=== PATIENT | male | born 1950 | race Caucasian/White ===

== ENCOUNTER → 2016-07-11 | Outpatient (CLI) | payer MEDICARE ==
--- NOTE | 2016-07-11 17:40 | XR ---
EXAMINATION TYPE: XR foot limited RT DATE OF EXAM: 07/11/2016 4:55 PM COMPARISON: None HISTORY: Pain and redness TECHNIQUE: 2 views FINDINGS: There is a large plantar calcaneal spur. Metatarsals are intact. I see no fracture nor disl ocation. IMPRESSION: Calcaneal spurring. No fracture seen. No evidence of osteomyelitis.
== END | disposition home or self-care (01) ==
LOC: RADXRMAIN 16:38
PROVIDERS: ATTEND Family Medicine
DX: M77.31 Calcaneal spur, right foot (principal)

== ENCOUNTER → 2017-08-11 | Outpatient (CLI) | payer MEDICARE ==
[2017-08-11 11:40] LABS: Basophils % (A) 0 %; Eosinophils # (A) 0.2 k/uL (0-0.7); Eosinophils % (A) 3 %; HCT 51.3 % (39.0-53.0); HGB 16.6 gm/dL (13.0-17.5); Lymphocytes # (A) 1.8 k/uL (1.0-4.8); Lymphocytes % (A) 20 %; MCH 30.8 pg (25.0-35.0); MCHC 32.2 g/dL (31.0-37.0); MCV 95.5 fL (80.0-100.0); Mean Platelet Volume 6.9; Monocytes # (A) 0.5 k/uL (0-1.0); Monocytes % (A) 6 %; Neutrophils # (A) 6.2 k/uL (1.3-7.7); Neutrophils % (A) 69 %; Platelet Count 234 k/uL (150-450); RBC 5.38 m/uL (4.30-5.90); RDW 13.3 % (11.5-15.5); WBC 8.9 k/uL (3.8-10.6)
== END | disposition home or self-care (01) ==
LOC: LABPAT 10:51
PROVIDERS: ATTEND Surgery
DX: Z01.812 Encounter for preprocedural laboratory examination (principal); D64.9 Anemia, unspecified; F17.200 Nicotine dependence, unspecified, uncomplicated; K43.0 Incisional hernia with obstruction, without gangrene
CPT/HCPCS: 36415; 85025; 86850; 86900; 86901; 93005

== ENCOUNTER 2017-08-19 06:39 | Day surgery (SDC) | payer MEDICARE ==
[2017-08-11 14:55] VITALS: BMI 39.7
[~2017-08-19 06:39] MED LIST: HEPARIN SODIUM,PORCINE 5,000 UNIT/ML 1 ML VIAL SQ ONE
[2017-08-19] MEDS ORDERED: LIDOCAINE 1% 20 ML VIAL (10MG/ML) FOR IV START INTRADERMA PRN (06:52)
[2017-08-19] MEDS ORDERED: ONDANSETRON 4 MG/2 ML VIAL IVP ONE (06:52)
[2017-08-19] MEDS ORDERED: MORPHINE SULFATE 4MG/4ML SYRG IV PRN (06:52)
[2017-08-19] MEDS ORDERED: SCOPOLAMINE 1.5MG/72HR PATCH TRANSDERM ONE (06:52)
[2017-08-19] MEDS ORDERED: DEXAMETHASONE SOD PHOSPHATE 10 MG/ML 1 ML VIAL IV ONE (06:52)
[2017-08-19] MEDS ORDERED: LACTATED RINGERS 1,000 ML IV SCH (06:52)
[2017-08-19] MEDS ORDERED: LIDOCAINE 1% 20 ML VIAL (10MG/ML) FOR IV START INTRADERMA ONE (07:44)
[2017-08-19 08:01] LABS: Glucose,Whole Blood 140 mg/dL (75-99)
[2017-08-19 08:22] LABS: Anion Gap 12 mmol/L; Blood Urea Nitrogen 27 mg/dL (9-20); Carbon Dioxide 35 mmol/L (22-30); Chloride 99 mmol/L (98-107); Potassium 4.3 mmol/L (3.5-5.1); Sodium 146 mmol/L (137-145)
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
[2017-08-19] MEDS ORDERED: NEOSTIGMINE 1 MG/ML 10 ML VIAL ONE (08:45)
[2017-08-19] MEDS ORDERED: PHENYLEPHRINE-0.9% NACL SYG 1 MG/10 ML SYRINGE ONE (08:45)
[2017-08-19] MEDS ORDERED: ROPIVACAINE 5 MG/ML 30 ML VIAL ONE (08:45)
[2017-08-19] MEDS ORDERED: MIDAZOLAM 2 MG/2 ML VIAL ONE (08:45)
[2017-08-19] MEDS ORDERED: GLYCOPYRROLATE 0.2 MG/ML 2 ML VIAL ONE (08:45)
[2017-08-19] MEDS ORDERED: PROPOFOL 10 MG/ML 20 ML VIAL IV ONE (08:45)
[2017-08-19] MEDS ORDERED: LIDOCAINE 1% INJ 10MG/ML (20 ML MDV) ONE (08:45)
[2017-08-19] MEDS ORDERED: ePHEDrine 50 MG/ML 1 ML AMP ONE (08:45)
[2017-08-19] MEDS ORDERED: SUCCINYLCHOLINE CHLORIDE 100 MG/5 ML SYR IV ONE (08:45)
[2017-08-19] MEDS ORDERED: ROCURONIUM BROMIDE 10 MG/ML 10 ML VIAL IV ONE (08:45)
[2017-08-19] MEDS ORDERED: fentaNYL (PF) 50 MCG/ML 2 ML AMP ONE (08:45)
[2017-08-19] MEDS ORDERED: BUPIVACAINE (PF) 0.25% 30 ML VIAL SQ ONE ×2 (09:12)
[2017-08-19] MEDS ORDERED: LACTATED RINGERS 1,000 ML IV ONE (09:40)
[2017-08-19 10:29] VITALS: TEMP 97.2
[2017-08-19 10:47] LABS: Glucose,Whole Blood 180 mg/dL (75-99)
--- NOTE | 2017-08-19 11:26 | P.ONQ ---
Anesthesiology Proc Note - PNB - Peripheral Nerve Block Performed Rectus Abdominis Single Time Out Performed: Yes (2904) Procedure Start Time: :08 Procedure Stop Time: :20 Indication: Acute Post-Operative Pain, Requested by physician Sedation Type: Sedate with meaningful contact maintained Preparation: Sterile Prep Position: Supine Catheter: None Needle Types: Facet Needle Size: 150mm (6") Needle Gauge: 20 Technique: Ultrasound Injectate: 0.5% Ropivacaine (see comment for volume) (Bilateral block total of 30 mls) Blood Aspirated: No Pain Paresthesia on Injection Noted: No Resistance on Injection: Normal Events: Uneventful and Well Tolerated
[2017-08-19] MEDS ORDERED: ALBUTEROL NEBULIZED 2.5 MG/3 ML INHALATION STA (11:45)
[2017-08-19] MEDS ORDERED: ALBUTEROL NEBULIZED 2.5 MG/3 ML INHALATION ONE (11:47)
[2017-08-19] MEDS ORDERED: fentaNYL (PF) 50 MCG/ML 2 ML AMP IV ONE (12:45)
[2017-08-19 12:55] VITALS: RESP 18
[2017-08-19 13:43] VITALS: BP 125/57; PULSE 93
--- NOTE | 2017-08-20 12:22 | P.OP ---
Date of Procedure: 08/19/17 Preoperative Diagnosis: Incarcerated incisional hernia Postoperative Diagnosis: Incarcerated incisional hernia Incarcerated umbilical hernia Procedure(s) Performed: Laparoscopic robotic-assisted repair of incarcerated umbilical hernia Laparoscopic robotic spare of incarcerated ventral hernia Partial omentectomy Anesthesia: JACKY Surgeon: Rony Dangelo Estimated Blood Loss (ml): 5 Pathology: other (Incarcerated omentum) Condition: stable Disposition: PACU Description of Procedure: MThe patient was placed on the operating table in the supine position. He received general anesthesia. His abdomen was prepped and draped usual fashion. Using a 5 mm optical trocar under direct visualization the peritoneal cavity was entered in the left upper quadrant. The abdomen was then insufflated. The laparoscope was placed back into the perineal cavity. Next a 8 mm robotic trocar was placed in the left lower quadrant and a 12 mm robotic trocar was placed in the left lateral position. The original 5 mm trocar was exchanged for a 8 mm robotic trocar. The patient's placed in the left side up position. And the patient was docked to the robot. The incisional hernia was visualized. Using hook cautery the peritoneum over the incisional hernia was excised. The incarcerated omentum was withdrawn from the incisional hernia. The non-viable omentum was transected. Patient was noted to have a second umbilical hernia containing incarcerated omentum. This was dissected using the hook cautery. The fascial opening was repaired using 0V LOC suture. Next a piece of 11 cm round ventral light ST mesh was placed into the. Cavity and secured with 2 OV lock suture. The patient was undocked the robot. The needles were retrieved. The omentum was retrieved. The fascia of the 12 mm trocar site was closed with 0 Ethibond suture. Skin was closed interrupted 3-0 Monocryl suture. Dermabond dressings was applied. Patient tolerated procedure well and was sent to recovery room stable condition.
== END 2017-08-19 14:49 | disposition home or self-care (01) ==
LOC: OR 06:39
PROVIDERS: ATTEND Surgery
DX: K43.0 Incisional hernia with obstruction, without gangrene (principal); K42.0 Umbilical hernia with obstruction, without gangrene; I11.0 Hypertensive heart disease with heart failure; I50.9 Heart failure, unspecified; J44.9 Chronic obstructive pulmonary disease, unspecified; E11.9 Type 2 diabetes mellitus without complications; E78.5 Hyperlipidemia, unspecified; M10.9 Gout, unspecified; M81.0 Age-related osteoporosis without current pathological fracture; Z79.84 Long term (current) use of oral hypoglycemic drugs; Z79.82 Long term (current) use of aspirin; Z79.4 Long term (current) use of insulin; Z79.51 Long term (current) use of inhaled steroids; Z79.899 Other long term (current) drug therapy; Z91.040 Latex allergy status; Z88.8 Allergy status to other drugs, medicaments and biological substances; Z91.09 Other allergy status, other than to drugs and biological substances; Z87.891 Personal history of nicotine dependence
CPT/HCPCS: 88305; 80051; 82565; 84520; 49655; 49653; 64488; C1781; J2250; J1644; J2710; J0690; J2405; J2001; J3010; J2795; J2370; J0330; J2704; 86850; 86900; 86901

== ENCOUNTER 2017-08-22 10:31 | Inpatient (IN) | payer MEDICARE ==
[2017-08-22] MEDS ORDERED: IPRATROPIUM-ALBUTEROL 3 ML NEB INHALATION STA (11:12)
--- NOTE | 2017-08-22 11:12 | ED ---
General Adult HPI - General Chief complaint: Altered Mental Status Stated complaint: hallucinations Time Seen by Provider: 08/22/17 10:50 Source: patient, RN notes reviewed Mode of arrival: wheelchair Limitations: no limitations - History of Present Illness Initial comments: Patient is a pleasant 66-year-old male presenting to the emergency Department with some concerns for change in mental status. Patient did have hernia surgery done 3 days ago. Patient has been having hallucinations and conversations with people who are not present. No history of similar symptoms previously. Patient does admit to feeling somewhat short of breath. Son also states that patient has been easily falling asleep recently. This is somewhat a chronic problem however worse the past day or 2. Onset of symptoms was yesterday. - Related Data Home Medications Medication Instructions Recorded Confirmed Albuterol Inhaler [Ventolin Hfa 3 puff INHALATION RT-BID PRN 08/11/17 08/22/17 Inhaler] Allopurinol [Zyloprim] 300 mg PO DAILY 08/11/17 08/22/17 Aspirin [Adult Low Dose Aspirin EC] 81 mg PO DAILY 08/11/17 08/22/17 Carvedilol 25 mg PO BID 08/11/17 08/22/17 Fluticasone/Vilanterol [Breo 1 puff INHALATION RT-DAILY 08/11/17 08/22/17 Ellipta 200-25 Mcg INH] Furosemide [Lasix] 40 mg PO DAILY 08/11/17 08/22/17 Insulin Detemir [Levemir] 30 unit SQ DAILY 08/11/17 08/22/17 Lisinopril 30 mg PO DAILY 08/11/17 08/22/17 [place]-3 Fatty Acids/Fish Oil [Fish 1 cap PO DAILY 08/11/17 08/22/17 Oil 1,000 mg Softgel] Tamsulosin [Flomax] 0.4 mg PO DAILY 08/11/17 08/22/17 glipiZIDE [Glucotrol] 10 mg PO AC-BID 08/11/17 08/22/17 metFORMIN HCL 1,000 mg PO BID PRN 08/11/17 08/22/17 Albuterol Nebulized [Ventolin 2.5 mg INHALATION RT-QID PRN 08/22/17 08/22/17 Nebulized] HYDROcodone/APAP 7.5-325MG [[place] 1 tab PO Q4H PRN 08/22/17 08/22/17 7.5] Multivitamins, Thera [Multivitamin 1 tab PO DAILY 08/22/17 08/22/17 (formulary)] Oxymetazoline 0.05% Nasl [place] 3 spray EA NOSTRIL TID PRN 08/22/17 08/22/17 [Afrin 0.05% Nasal [place]] Previous Rx's Medication Instructions Recorded Docusate [Colace] 100 mg PO BID #20 capsule 08/19/17 Allergies Allergy/AdvReac Type Severity Reaction Status Date / Time codeine Allergy Unknown Verified 08/22/17 11:39 iodine Allergy "i could Verified 08/22/17 11:39 not move for 3 weeks" latex Allergy Rash/Hives/ Verified 08/22/17 11:39 blisters nitrous oxide Allergy Vomiting Verified 08/22/17 11:39 Review of Systems ROS Statement: Those systems with pertinent positive or pertinent negative responses have been documented in the HPI. ROS Other: All systems not noted in ROS Statement are negative. Constitutional: Denies: fever Eyes: Denies: eye pain ENT: Denies: ear pain Respiratory: Reports: dyspnea Cardiovascular: Denies: chest pain Endocrine: Reports: fatigue Gastrointestinal: Reports: abdominal pain (Mild discomfort is attributed to recent hernia surgery, patient states it is improving as expected.). Denies: vomiting Genitourinary: Denies: dysuria Musculoskeletal: Denies: back pain Skin: Denies: rash Neurological: Denies: weakness Psychiatric: Reports: as per HPI Past Medical History Past Medical History: COPD, Diabetes Mellitus, Hypertension History of Any Multi-Drug Resistant Organisms: None Reported Past Surgical History: Back Surgery, Hernia Repair, Joint Replacement, Orthopedic Surgery Past Psychological History: No Psychological Hx Reported Smoking Status: Current every day smoker Past Alcohol Use History: None Reported Past Drug Use History: None Reported General Exam Limitations: no limitations General appearance: alert, in no apparent distress Head exam: Present: atraumatic Eye exam: Present: normal appearance, PERRL, EOMI ENT exam: Present: normal oropharynx Neck exam: Present: normal inspection Respiratory exam: Present: wheezes, decreased breath sounds Cardiovascular Exam: Present: tachycardia GI/Abdominal exam: Present: soft. Absent: tenderness Extremities exam: Present: pedal edema. Absent: calf tenderness Back exam: Present: normal inspection Neurological exam: Present: alert, oriented X3, CN II-XII intact. Absent: motor sensory deficit Expanded Neurological exam: Present: protecting the airway Patient oriented to: Present: person, place, time Speech: Present: fluid speech Cranial nerves: EOM's Intact: Normal Motor strength exam: RUE: 5, LUE: 5, RLE: 5, LLE: 5 Eye Response: (4) open spontaneously Motor Response: (6) obeys commands Verbal Response: (5) oriented Psychiatric exam: Present: normal affect, normal mood Skin exam: Present: normal color Course Vital Signs 08/22/17 08/22/17 08/22/17 10:38 11:27 11:28 Temperature 98.1 F Pulse Rate 123 H 125 H Respiratory 22 22 Rate Blood Pressure 149/63 O2 Sat by Pulse 83 L Oximetry 08/22/17 08/22/17 08/22/17 11:38 11:41 13:00 Temperature 97.7 F Pulse Rate 121 H 115 H 112 H Respiratory 26 H 24 Rate Blood Pressure 156/80 O2 Sat by Pulse 91 L 98 Oximetry EKG Findings - EKG Comments: EKG Findings:: Sinus tachycardia 125. SC 152. QRS 92. QT 284. QTC 409. Normal axis. Normal QRS. Nonspecific T-wave. Medical Decision Making - Medical Decision Making Patient reevaluated and resting comfortably in bed. Patient and son updated on results and plan. Case was also discussed with Dr. Kraus who will consult. He will decide on BiPAP when he sees the patient. - Lab Data Result diagrams: 08/22/17 11:00 08/22/17 11:00 Lab Results 08/22/17 08/22/17 08/22/17 Range/Units 11:00 11:00 11:00 WBC 11.4 H (3.8-10.6) k/uL RBC 5.18 (4.30-5.90) m/uL Hgb 16.2 (13.0-17.5) gm/dL Hct 49.6 (39.0-53.0) % MCV 95.8 (80.0-100.0) fL MCH 31.3 (25.0-35.0) pg MCHC 32.7 (31.0-37.0) g/dL RDW 13.2 (11.5-15.5) % Plt Count 203 (150-450) k/uL Neutrophils % 82 % Lymphocytes % 10 % Monocytes % 6 % Eosinophils % 2 % Basophils % 0 % Neutrophils # 9.2 H (1.3-7.7) k/uL Lymphocytes # 1.1 (1.0-4.8) k/uL Monocytes # 0.7 (0-1.0) k/uL Eosinophils # 0.2 (0-0.7) k/uL Basophils # 0.0 (0-0.2) k/uL PT (9.0-12.0) sec INR (<1.2) APTT (22.0-30.0) sec Sample Site ABG pH (7.35-7.45) ABG pCO2 (35-45) mmHg ABG pO2 (83-108) mmHg ABG HCO3 (21-25) mmol/L ABG Total CO2 (19-24) mmol/L ABG O2 Saturation (94-97) % ABG Base Excess mmol/L King Test FiO2 % Sodium 144 (137-145) mmol/L Potassium 4.7 (3.5-5.1) mmol/L Chloride 98 (98-107) mmol/L Carbon Dioxide 34 H (22-30) mmol/L Anion Gap 12 mmol/L BUN 38 H (9-20) mg/dL Creatinine 0.87 (0.66-1.25) mg/dL Est GFR (CKD-EPI)AfAm >90 (>60 ml/min/1.73 sqM) Est GFR (CKD-EPI)NonAf >90 (>60 ml/min/1.73 sqM) Glucose 260 H (74-99) mg/dL Calcium 9.9 (8.4-10.2) mg/dL Total Bilirubin 0.8 (0.2-1.3) mg/dL AST 82 H (17-59) U/L ALT 47 (21-72) U/L Alkaline Phosphatase 172 H (38-126) U/L Total Creatine Kinase 1310 H (55-170) U/L CK-MB (CK-2) 9.9 H* (0.0-2.4) ng/mL CK-MB (CK-2) Rel Index 0.8 Troponin I 0.027 (0.000-0.034) ng/mL NT-Pro-B Natriuret Pep pg/mL Total Protein 6.4 (6.3-8.2) g/dL Albumin 3.6 (3.5-5.0) g/dL Urine Color Urine Appearance (Clear) Urine pH (5.0-8.0) Ur Specific [place] (1.001-1.035) Urine Protein (Negative) Urine Glucose (UA) (Negative) Urine Ketones (Negative) Urine Blood (Negative) Urine Nitrite (Negative) Urine Bilirubin (Negative) Urine Urobilinogen (<2.0) mg/dL Ur Leukocyte Esterase (Negative) Urine Opiates Screen (NotDetected) Ur Oxycodone Screen (NotDetected) Urine Methadone Screen (NotDetected) Ur Propoxyphene Screen (NotDetected) Ur Barbiturates Screen (NotDetected) U Tricyclic Antidepress (NotDetected) Ur Phencyclidine Scrn (NotDetected) Ur Amphetamines Screen (NotDetected) U Methamphetamines Scrn (NotDetected) U Benzodiazepines Scrn (NotDetected) Urine Cocaine Screen (NotDetected) U Marijuana (THC) Screen (NotDetected) 08/22/17 08/22/17 08/22/17 Range/Units 11:00 11:00 12:34 WBC (3.8-10.6) k/uL RBC (4.30-5.90) m/uL Hgb (13.0-17.5) gm/dL Hct (39.0-53.0) % MCV (80.0-100.0) fL MCH (25.0-35.0) pg MCHC (31.0-37.0) g/dL RDW (11.5-15.5) % Plt Count (150-450) k/uL Neutrophils % % Lymphocytes % % Monocytes % % Eosinophils % % Basophils % % Neutrophils # (1.3-7.7) k/uL Lymphocytes # (1.0-4.8) k/uL Monocytes # (0-1.0) k/uL Eosinophils # (0-0.7) k/uL Basophils # (0-0.2) k/uL PT 9.8 (9.0-12.0) sec INR 1.0 (<1.2) APTT 24.4 (22.0-30.0) sec Sample Site rrad ABG pH 7.37 (7.35-7.45) ABG pCO2 63 H (35-45) mmHg ABG pO2 63 L (83-108) mmHg ABG HCO3 36 H (21-25) mmol/L ABG Total CO2 38 H (19-24) mmol/L ABG O2 Saturation 92.0 L (94-97) % ABG Base Excess 10.8 mmol/L King Test Yes FiO2 28 % Sodium (137-145) mmol/L Potassium (3.5-5.1) mmol/L Chloride (98-107) mmol/L Carbon Dioxide (22-30) mmol/L Anion Gap mmol/L BUN (9-20) mg/dL Creatinine (0.66-1.25) mg/dL Est GFR (CKD-EPI)AfAm (>60 ml/min/1.73 sqM) Est GFR (CKD-EPI)NonAf (>60 ml/min/1.73 sqM) Glucose (74-99) mg/dL Calcium (8.4-10.2) mg/dL Total Bilirubin (0.2-1.3) mg/dL AST (17-59) U/L ALT (21-72) U/L Alkaline Phosphatase (38-126) U/L Total Creatine Kinase (55-170) U/L CK-MB (CK-2) (0.0-2.4) ng/mL CK-MB (CK-2) Rel Index Troponin I (0.000-0.034) ng/mL NT-Pro-B Natriuret Pep 318 pg/mL Total Protein (6.3-8.2) g/dL Albumin (3.5-5.0) g/dL Urine Color Urine Appearance (Clear) Urine pH (5.0-8.0) Ur Specific [place] (1.001-1.035) Urine Protein (Negative) Urine Glucose (UA) (Negative) Urine Ketones (Negative) Urine Blood (Negative) Urine Nitrite (Negative) Urine Bilirubin (Negative) Urine Urobilinogen (<2.0) mg/dL Ur Leukocyte Esterase (Negative) Urine Opiates Screen (NotDetected) Ur Oxycodone Screen (NotDetected) Urine Methadone Screen (NotDetected) Ur Propoxyphene Screen (NotDetected) Ur Barbiturates Screen (NotDetected) U Tricyclic Antidepress (NotDetected) Ur Phencyclidine Scrn (NotDetected) Ur Amphetamines Screen (NotDetected) U Methamphetamines Scrn (NotDetected) U Benzodiazepines Scrn (NotDetected) Urine Cocaine Screen (NotDetected) U Marijuana (THC) Screen (NotDetected) 08/22/17 Range/Units 13:41 WBC (3.8-10.6) k/uL RBC (4.30-5.90) m/uL Hgb (13.0-17.5) gm/dL Hct (39.0-53.0) % MCV (80.0-100.0) fL MCH (25.0-35.0) pg MCHC (31.0-37.0) g/dL RDW (11.5-15.5) % Plt Count (150-450) k/uL Neutrophils % % Lymphocytes % % Monocytes % % Eosinophils % % Basophils % % Neutrophils # (1.3-7.7) k/uL Lymphocytes # (1.0-4.8) k/uL Monocytes # (0-1.0) k/uL Eosinophils # (0-0.7) k/uL Basophils # (0-0.2) k/uL PT (9.0-12.0) sec INR (<1.2) APTT (22.0-30.0) sec Sample Site ABG pH (7.35-7.45) ABG pCO2 (35-45) mmHg ABG pO2 (83-108) mmHg ABG HCO3 (21-25) mmol/L ABG Total CO2 (19-24) mmol/L ABG O2 Saturation (94-97) % ABG Base Excess mmol/L King Test FiO2 % Sodium (137-145) mmol/L Potassium (3.5-5.1) mmol/L Chloride (98-107) mmol/L Carbon Dioxide (22-30) mmol/L Anion Gap mmol/L BUN (9-20) mg/dL Creatinine (0.66-1.25) mg/dL Est GFR (CKD-EPI)AfAm (>60 ml/min/1.73 sqM) Est GFR (CKD-EPI)NonAf (>60 ml/min/1.73 sqM) Glucose (74-99) mg/dL Calcium (8.4-10.2) mg/dL Total Bilirubin (0.2-1.3) mg/dL AST (17-59) U/L ALT (21-72) U/L Alkaline Phosphatase (38-126) U/L Total Creatine Kinase (55-170) U/L CK-MB (CK-2) (0.0-2.4) ng/mL CK-MB (CK-2) Rel Index Troponin I (0.000-0.034) ng/mL NT-Pro-B Natriuret Pep pg/mL Total Protein (6.3-8.2) g/dL Albumin (3.5-5.0) g/dL Urine Color Yellow Urine Appearance Clear (Clear) Urine pH 5.0 (5.0-8.0) Ur Specific [place] 1.011 (1.001-1.035) Urine Protein Trace H (Negative) Urine Glucose (UA) Negative (Negative) Urine Ketones Negative (Negative) Urine Blood Negative (Negative) Urine Nitrite Negative (Negative) Urine Bilirubin Negative (Negative) Urine Urobilinogen <2.0 (<2.0) mg/dL Ur Leukocyte Esterase Negative (Negative) Urine Opiates Screen Detected H (NotDetected) Ur Oxycodone Screen Not Detected (NotDetected) Urine Methadone Screen Not Detected (NotDetected) Ur Propoxyphene Screen Not Detected (NotDetected) Ur Barbiturates Screen Not Detected (NotDetected) U Tricyclic Antidepress Not Detected (NotDetected) Ur Phencyclidine Scrn Not Detected (NotDetected) Ur Amphetamines Screen Not Detected (NotDetected) U Methamphetamines Scrn Not Detected (NotDetected) U Benzodiazepines Scrn Not Detected (NotDetected) Urine Cocaine Screen Not Detected (NotDetected) U Marijuana (THC) Screen Not Detected (NotDetected) - Radiology Data Radiology results: report reviewed (Computed tomography scan of the brain shows no acute intercranial abnormality. Old lacunar infarct. Chronic white blood or ischemic change.), image reviewed (Two-view chest x-ray shows some cardiomegaly.) Disposition Clinical Impression: Altered mental status, Hypercarbia, Hypoxia Disposition: ADMITTED IP TO THIS HOSP Is patient prescribed a controlled substance at d/c from ED?: No Referrals: Elsi Peterson PAC [Primary Care Provider] - 1-2 days Decision Time: 14:49
[2017-08-22 11:54] LABS: Basophils % (A) 0 %; Eosinophils # (A) 0.2 k/uL (0-0.7); Eosinophils % (A) 2 %; HCT 49.6 % (39.0-53.0); HGB 16.2 gm/dL (13.0-17.5); Lymphocytes # (A) 1.1 k/uL (1.0-4.8); Lymphocytes % (A) 10 %; MCH 31.3 pg (25.0-35.0); MCHC 32.7 g/dL (31.0-37.0); MCV 95.8 fL (80.0-100.0); Mean Platelet Volume 6.9; Monocytes # (A) 0.7 k/uL (0-1.0); Monocytes % (A) 6 %; Neutrophils # (A) 9.2 k/uL (1.3-7.7); Neutrophils % (A) 82 %; Platelet Count 203 k/uL (150-450); RBC 5.18 m/uL (4.30-5.90); RDW 13.2 % (11.5-15.5); WBC 11.4 k/uL (3.8-10.6)
[2017-08-22 12:02] LABS: ALT 47 U/L (21-72); AST 82 U/L (17-59); Albumin 3.6 g/dL (3.5-5.0); Alkaline Phosphatase 172 U/L (38-126); Anion Gap 12 mmol/L; Blood Urea Nitrogen 38 mg/dL (9-20); Calcium 9.9 mg/dL (8.4-10.2); Carbon Dioxide 34 mmol/L (22-30); Chloride 98 mmol/L (98-107); Glucose 260 mg/dL (74-99); Potassium 4.7 mmol/L (3.5-5.1); Sodium 144 mmol/L (137-145); Total Bilirubin 0.8 mg/dL (0.2-1.3); Total Protein 6.4 g/dL (6.3-8.2)
[2017-08-22 12:11] LABS: Partial Thromboplastin Time 24.4 sec (22.0-30.0); Prothrombin Time 9.8 sec (9.0-12.0)
--- NOTE | 2017-08-22 12:16 | CT ---
EXAMINATION TYPE: CT brain wo con DATE OF EXAM: 08/22/2017 COMPARISON: NONE HISTORY: AMS, trouble breathing CT DLP: 1161.0 mGycm Automated exposure control for dose reduction was used. FINDINGS: Central structures are midline. There is no evidence of hydrocephalus. There is diffuse periventricul ar white matter lucency, compatible with chronic ischemic change. There is evidence of an olecranon o r infarct in the external capsule on the left. No acute focal lesion, mass effect or midline shift is seen. I do not see evidence of intracranial blood. Visualized portions of the paranasal sinuses and mastoids are clear bony calvarium is intact. IMPRESSION: 1. NO ACUTE INTRACRANIAL ABNORMALITY. 2. 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 3. CHRONIC WHITE MATTER ISCHEMIC CHANGE.
[2017-08-22 12:29] LABS: Troponin I 0.027 ng/mL (0.000-0.034)
[2017-08-22 12:31] LABS: Creatine Kinase MB 9.9 ng/mL (0.0-2.4)
[2017-08-22 12:36] LABS: ABG Base Excess 10.8 mmol/L; ABG HCO3 36 mmol/L (21-25); ABG PCO2 63 mmHg (35-45); ABG PH 7.37 (7.35-7.45); ABG PO2 63 mmHg (83-108); ABG TCO2 38 mmol/L (19-24)
--- NOTE | 2017-08-22 12:40 | XR ---
EXAMINATION TYPE: XR chest 2V DATE OF EXAM: 08/22/2017 HISTORY: altered mental status. REFERENCE: NONE. FINDINGS: The heart is mildly enlarged. There is vascular congestion without michelle edema. Pleural [place] are clear. IMPRESSION: CARDIOMEGALY WITH VASCULAR CONGESTION.
[2017-08-22 13:52] LABS: Appearance,Urine Clear (Clear); Bilirubin,Urine Negative (Negative); Blood,Urine Negative (Negative); Color,Urine Yellow; Glucose,Urine (UA) Negative (Negative); Ketones,Urine Negative (Negative); Leukocyte Esterase,Urine Negative (Negative); Nitrite,Urine Negative (Negative); Protein,Urine Trace (Negative); Specific Gravity,Urine 1.011 (1.001-1.035); Urobilinogen,Urine <2.0 mg/dL (<2.0)
[2017-08-22 14:03] LABS: Amphetamine Screen,Urine Not Detected (NotDetected); Barbiturate Screen,Urine Not Detected (NotDetected); Benzodiazepines Screen,Urine Not Detected (NotDetected); Cocaine Screen,Urine Not Detected (NotDetected); Methadone Screen, Urine Not Detected (NotDetected); Opiate Screen,Urine Detected (NotDetected); Oxycodone Screen, Urine Not Detected (NotDetected); Phencyclidine Screen,Urine Not Detected (NotDetected); Tricyclic Antidepressant,Urine Not Detected (NotDetected); Urn Cannabinoid Scrn Not Detected (NotDetected)
[2017-08-22] MEDS ORDERED: IPRATROPIUM-ALBUTEROL 3 ML NEB INHALATION PRN (14:51)
--- NOTE | 2017-08-22 16:20 | P.HPIM ---
History of Present Illness H&P Date: 08/22/17 Chief Complaint: altered mental status 66-year-old male that comes with altered mental status. Son describes that patient has been hallucinating. Talking to people that were not there. Patient had surgery for hernia repair on Thursday. His postoperative period was uneventful until yesterday. Patient hasn't been eating tolerating oral. The only thing the son describes that his urine was dark. No fevers no chills no nausea no vomiting. Patient has had flatus but no bowel movements. Review of Systems No nausea no vomiting no bleeding no fever no chills no shortness of breath no cough, also systems reviewed were negative except as mentioned in HPI. Past Medical History Past Medical History: COPD, Diabetes Mellitus, Hypertension History of Any Multi-Drug Resistant Organisms: None Reported Past Surgical History: Back Surgery, Hernia Repair, Joint Replacement, Orthopedic Surgery Past Psychological History: No Psychological Hx Reported Smoking Status: Current every day smoker Past Alcohol Use History: None Reported Past Drug Use History: None Reported Medications and Allergies Home Medications Medication Instructions Recorded Confirmed Type Albuterol Inhaler [Ventolin Hfa 3 puff INHALATION RT-BID PRN 08/11/17 08/22/17 History Inhaler] Allopurinol [Zyloprim] 300 mg PO DAILY 08/11/17 08/22/17 History Aspirin [Adult Low Dose Aspirin EC] 81 mg PO DAILY 08/11/17 08/22/17 History Carvedilol 25 mg PO BID 08/11/17 08/22/17 History Fluticasone/Vilanterol [Breo 1 puff INHALATION RT-DAILY 08/11/17 08/22/17 History Ellipta 200-25 Mcg INH] Furosemide [Lasix] 40 mg PO DAILY 08/11/17 08/22/17 History Insulin Detemir [Levemir] 30 unit SQ DAILY 08/11/17 08/22/17 History Lisinopril 30 mg PO DAILY 08/11/17 08/22/17 History [place]-3 Fatty Acids/Fish Oil [Fish 1 cap PO DAILY 08/11/17 08/22/17 History Oil 1,000 mg Softgel] Tamsulosin [Flomax] 0.4 mg PO DAILY 08/11/17 08/22/17 History glipiZIDE [Glucotrol] 10 mg PO AC-BID 08/11/17 08/22/17 History metFORMIN HCL 1,000 mg PO BID PRN 08/11/17 08/22/17 History Docusate [Colace] 100 mg PO BID #20 capsule 08/19/17 08/22/17 Rx Albuterol Nebulized [Ventolin 2.5 mg INHALATION RT-QID PRN 08/22/17 08/22/17 History Nebulized] HYDROcodone/APAP 7.5-325MG [[place] 1 tab PO Q4H PRN 08/22/17 08/22/17 History 7.5] Multivitamins, Thera [Multivitamin 1 tab PO DAILY 08/22/17 08/22/17 History (formulary)] Oxymetazoline 0.05% Nasl [place] 3 spray EA NOSTRIL TID PRN 08/22/17 08/22/17 History [Afrin 0.05% Nasal [place]] Allergies Allergy/AdvReac Type Severity Reaction Status Date / Time codeine Allergy Unknown Verified 08/22/17 11:39 iodine Allergy "i could Verified 08/22/17 11:39 not move for 3 weeks" latex Allergy Rash/Hives/ Verified 08/22/17 11:39 blisters nitrous oxide Allergy Vomiting Verified 08/22/17 11:39 Physical Exam Vitals: Vital Signs Temp Pulse Resp BP Pulse Ox 08/22/17 15:46 97.9 F 102 H 22 160/75 97 08/22/17 13:00 97.7 F 112 H 24 156/80 98 08/22/17 11:41 115 H 26 H 91 L 08/22/17 11:38 121 H 08/22/17 11:28 125 H 08/22/17 11:27 22 08/22/17 10:38 98.1 F 123 H 22 149/63 83 L Intake and Output 08/22/17 08/22/17 08/22/17 06:59 14:59 22:59 Other: Weight 125.645 kg - Constitutional General appearance: no acute distress - EENT Eyes: EOMI, PERRLA - Respiratory Respiratory: bilateral: CTA, negative: wheezing - Cardiovascular Rhythm: regular Heart sounds: normal: S1, S2 - Gastrointestinal General gastrointestinal: normal bowel sounds, soft - Integumentary Integumentary: normal - Neurologic Neurologic: CNII-XII intact - Psychiatric Psychiatric: A&O x's 3, intact judgment & insight Results CBC & Chem 7: 08/22/17 11:00 08/22/17 11:00 Labs: Abnormal Lab Results - Last 24 Hours (Table) 08/22/17 08/22/17 08/22/17 Range/Units 11:00 11:00 11:00 WBC 11.4 H (3.8-10.6) k/uL Neutrophils # 9.2 H (1.3-7.7) k/uL ABG pCO2 (35-45) mmHg ABG pO2 (83-108) mmHg ABG HCO3 (21-25) mmol/L ABG Total CO2 (19-24) mmol/L ABG O2 Saturation (94-97) % Carbon Dioxide 34 H (22-30) mmol/L BUN 38 H (9-20) mg/dL Glucose 260 H (74-99) mg/dL AST 82 H (17-59) U/L Alkaline Phosphatase 172 H (38-126) U/L Total Creatine Kinase 1310 H (55-170) U/L CK-MB (CK-2) 9.9 H* (0.0-2.4) ng/mL Urine Protein (Negative) Urine Opiates Screen (NotDetected) 08/22/17 08/22/17 Range/Units 12:34 13:41 WBC (3.8-10.6) k/uL Neutrophils # (1.3-7.7) k/uL ABG pCO2 63 H (35-45) mmHg ABG pO2 63 L (83-108) mmHg ABG HCO3 36 H (21-25) mmol/L ABG Total CO2 38 H (19-24) mmol/L ABG O2 Saturation 92.0 L (94-97) % Carbon Dioxide (22-30) mmol/L BUN (9-20) mg/dL Glucose (74-99) mg/dL AST (17-59) U/L Alkaline Phosphatase (38-126) U/L Total Creatine Kinase (55-170) U/L CK-MB (CK-2) (0.0-2.4) ng/mL Urine Protein Trace H (Negative) Urine Opiates Screen Detected H (NotDetected) Assessment and Plan (1) Altered mental status Narrative/Plan: No signs of infections Suspect secondary to hypercapnia Case discussed by er with Dr Artinian, he will evaluate patient on floor before decision for bipap. Current Visit: Yes Status: Acute Code(s): R41.82 - ALTERED MENTAL STATUS, UNSPECIFIED SNOMED Code(s): 903496313 (2) Hypercarbia Narrative/Plan: Suspect cause of altered mental status, Dr Kraus to evaluate for need of BIPAP Current Visit: Yes Status: Acute Code(s): R06.89 - OTHER ABNORMALITIES OF BREATHING SNOMED Code(s): 22527162 (3) Diabetes mellitus Narrative/Plan: on metformin and glipizide continue ssi Current Visit: Yes Status: Acute Code(s): E11.9 - TYPE 2 DIABETES MELLITUS WITHOUT COMPLICATIONS SNOMED Code(s): 32903964 (4) Hypertension Narrative/Plan: controlled continue lisinopril Current Visit: Yes Status: Acute Code(s): I10 - ESSENTIAL (PRIMARY) HYPERTENSION SNOMED Code(s): 82970719 (5) Congestive heart failure Narrative/Plan: compensated on lasix Current Visit: Yes Status: Acute Code(s): I50.9 - HEART FAILURE, UNSPECIFIED SNOMED Code(s): 47010557
[2017-08-22 16:56] LABS: Glucose,Whole Blood 177 mg/dL (75-99)
[2017-08-22] MEDS: INSULIN ASPART 100 UNIT/ML 1 ML 10 ML VIAL SQ SCH ×2 (17:49→21:37)
[2017-08-22] MEDS: IPRATROPIUM-ALBUTEROL 3 ML NEB INHALATION SCH ×2 (17:56→19:32)
--- NOTE | 2017-08-22 18:21 | P.CNPUL ---
History of Present Illness Consult date: 08/22/17 Reason for consult: dyspnea, COPD History of present illness: This 66-year-old male patient has COPD, chronic hypoxic and hypercapnic respiratory failure however has not had any adequate follow-up in terms of his pulmonary condition. He states that he has not been maintained on oxygen even. He smokes on a regular basis 1 pack of cigarettes a day. He underwent a recent abdominal wall hernia repair and he was discharged home on oxycodone. Surgery went fine and the patient did not have any immediate postoperative complications. The patient subsequently started developing some hallucination. He was able to see images of family members coming in visiting him and he had some auditory hallucinations. Denies having any chest pain. No cough or sputum production. No hemoptysis or pleurisy. No swelling lower extremities. No abdominal pain. Surgical wound site over the abdominal wall is dry clean and intact. No fever or chills. He came into the emergency room her chest x- ray was done and the blood gases was done. The chest x-ray reveals cardiomegaly along with some mild pulmonary vessel congestion and the blood gases showed a pH of 7.37 with a pCO2 of 63 and pO2 of 63 and this was on FiO2 of 28% consistent with chronic hypoxic and hypercapnic respiratory failure. He denies having any respiratory difficulties. No nausea vomiting or abdominal pain. No 70 psychiatric history. Most of depression perhistory of schizophrenia. He is diabetic. He also has history of BPH. He is obese. No 70 CPAP therapy at home. No 70 documented sleep breathing disorder. The patient's CPK is 1300. The troponin is a 0.02. Urinalysis negative. Urine drug screen is positive for opiates. EKG was showing sinus tachycardia type of admission with a heart rate of 125 and some nonspecific T-wave changes. The patient had a CAT scan of the brain was also negative. There is evidence of old lacunar infarct in the external capsule on the left and chronic white matter ischemic changes. Review of Systems Constitutional: Reports daytime sleepiness, Reports fatigue, Reports lethargy, Reports weakness Eyes: denies blurred vision, denies bulging eye, denies decreased vision Ears: deny: decreased hearing, ear discharge, earache Ears, nose, mouth and throat: Denies headache, Denies sore throat Cardiovascular: Reports dyspnea on exertion, Reports shortness of breath Respiratory: Reports dyspnea Gastrointestinal: Denies abdominal pain, Denies diarrhea, Denies nausea, Denies vomiting Genitourinary: Reports as per HPI Musculoskeletal: Denies myalgias Musculoskeletal: absent: ankle pain, ankle stiffness, ankle swelling Integumentary: Denies pruritus, Denies rash Neurological: Reports as per HPI, Reports weakness Psychiatric: Reports hallucinations, Reports sleep disturbances Endocrine: Denies fatigue, Denies weight change Hematologic/Lymphatic: Reports as per HPI Allergic/Immunologic: Reports as per HPI Past Medical History Past Medical History: COPD, Diabetes Mellitus, Hypertension History of Any Multi-Drug Resistant Organisms: None Reported Past Surgical History: Back Surgery, Hernia Repair ( laparoscopic and robotic- assisted repair of an incarcerated umbilical hernia), Joint Replacement, Orthopedic Surgery Past Anesthesia/Blood Transfusion Reactions: No Reported Reaction Past Psychological History: No Psychological Hx Reported Smoking Status: Current every day smoker Past Alcohol Use History: None Reported Past Drug Use History: None Reported Medications and Allergies Home Medications Medication Instructions Recorded Confirmed Type Albuterol Inhaler [Ventolin Hfa 3 puff INHALATION RT-BID PRN 08/11/17 08/22/17 History Inhaler] Allopurinol [Zyloprim] 300 mg PO DAILY 08/11/17 08/22/17 History Aspirin [Adult Low Dose Aspirin EC] 81 mg PO DAILY 08/11/17 08/22/17 History Carvedilol 25 mg PO BID 08/11/17 08/22/17 History Fluticasone/Vilanterol [Breo 1 puff INHALATION RT-DAILY 08/11/17 08/22/17 History Ellipta 200-25 Mcg INH] Furosemide [Lasix] 40 mg PO DAILY 08/11/17 08/22/17 History Insulin Detemir [Levemir] 30 unit SQ DAILY 08/11/17 08/22/17 History Lisinopril 30 mg PO DAILY 08/11/17 08/22/17 History [place]-3 Fatty Acids/Fish Oil [Fish 1 cap PO DAILY 08/11/17 08/22/17 History Oil 1,000 mg Softgel] Tamsulosin [Flomax] 0.4 mg PO DAILY 08/11/17 08/22/17 History glipiZIDE [Glucotrol] 10 mg PO AC-BID 08/11/17 08/22/17 History metFORMIN HCL 1,000 mg PO BID PRN 08/11/17 08/22/17 History Docusate [Colace] 100 mg PO BID #20 capsule 08/19/17 08/22/17 Rx Albuterol Nebulized [Ventolin 2.5 mg INHALATION RT-QID PRN 08/22/17 08/22/17 History Nebulized] HYDROcodone/APAP 7.5-325MG [[place] 1 tab PO Q4H PRN 08/22/17 08/22/17 History 7.5] Multivitamins, Thera [Multivitamin 1 tab PO DAILY 08/22/17 08/22/17 History (formulary)] Oxymetazoline 0.05% Nasl [place] 3 spray EA NOSTRIL TID PRN 08/22/17 08/22/17 History [Afrin 0.05% Nasal [place]] Allergies Allergy/AdvReac Type Severity Reaction Status Date / Time codeine Allergy Unknown Verified 08/22/17 11:39 iodine Allergy "i could Verified 08/22/17 11:39 not move for 3 weeks" latex Allergy Rash/Hives/ Verified 08/22/17 11:39 blisters nitrous oxide Allergy Vomiting Verified 08/22/17 11:39 Physical Exam Vitals: Vital Signs Temp Pulse Pulse Resp BP BP Pulse Ox 08/22/17 17:44 22 08/22/17 15:46 97.9 F 102 H 22 160/75 97 08/22/17 15:17 98.0 F 118 H 20 145/71 96 08/22/17 13:00 97.7 F 112 H 24 156/80 98 08/22/17 11:41 115 H 26 H 91 L 08/22/17 11:38 121 H 08/22/17 11:28 125 H 08/22/17 11:27 22 08/22/17 10:38 98.1 F 123 H 22 149/63 83 L Intake and Output 08/22/17 08/22/17 08/22/17 06:59 14:59 22:59 Output Total 0 Balance 0 Output: Urine 0 Other: Weight 125.645 kg 124.5 kg Gen. appearance is calm comfortable likely distress.Head exam was generally normal. There was no scleral icterus or corneal arcus. Mucous membranes were moist.Neck was supple and without jugular venous distension, thyromegaly, or carotid bruits. Carotids were easily palpable bilaterally. There was no adenopathy. Crowding of posterior pharynx is seen. Lungs are diminished breath sounds bilaterally along with some few scattered external wheeze upon forceful expiratory maneuvers yet overall breath sounds are markedly diminished bilaterally to the point where the status chest can be essentially silent.Cardiac exam revealed the PMI to be normally situated and sized. The rhythm was regular and no extrasystoles were noted during several minutes of auscultation. The first and second heart sounds were normal and physiologic splitting of the second heart sound was noted. There were no murmurs, rubs, clicks, or gallops. Overall heart sounds are distant. Abdomen is soft and the surgical wound sites are all dry clean and intact. There is some redness and the infraumbilical area. I'm not sure if this is a representation of a wound infection with abdominal wall cellulitis. This is something to watch for. No direct tenderness, rebound tensile guarding.Examination of the extremities revealed easily palpable radial, femoral and pedal pulses. There was no cyanosis , clubbing or edema. Neurologically the patient awake and alert and there is no focal logical deficits that this point. Psychiatrically the patient was having some hallucinations. He has appropriate mood and affect. Results - Laboratory Findings CBC and BMP: 08/22/17 11:00 08/22/17 11:00 ABG ABG pH 7.37 (7.35-7.45) 08/22/17 12:34 ABG pCO2 63 mmHg (35-45) H 08/22/17 12:34 ABG pO2 63 mmHg (83-108) L 08/22/17 12:34 ABG O2 Saturation 92.0 % (94-97) L 08/22/17 12:34 PT/INR, D-dimer PT 9.8 sec (9.0-12.0) 08/22/17 11:00 INR 1.0 (<1.2) 08/22/17 11:00 Abnormal lab findings: Abnormal Labs 08/22/17 08/22/17 08/22/17 11:00 11:00 11:00 WBC 11.4 H Neutrophils # 9.2 H ABG pCO2 ABG pO2 ABG HCO3 ABG Total CO2 ABG O2 Saturation Carbon Dioxide 34 H BUN 38 H Glucose 260 H POC Glucose (mg/dL) AST 82 H Alkaline Phosphatase 172 H Total Creatine Kinase 1310 H CK-MB (CK-2) 9.9 H* Urine Protein Urine Opiates Screen 08/22/17 08/22/17 08/22/17 12:34 13:41 16:37 WBC Neutrophils # ABG pCO2 63 H ABG pO2 63 L ABG HCO3 36 H ABG Total CO2 38 H ABG O2 Saturation 92.0 L Carbon Dioxide BUN Glucose POC Glucose (mg/dL) 177 H AST Alkaline Phosphatase Total Creatine Kinase CK-MB (CK-2) Urine Protein Trace H Urine Opiates Screen Detected H - Diagnostic Findings Chest x-ray: image reviewed Assessment and Plan Plan: Assessment 1 acute hallucination, occurring postop day #3 following a repair of an umbilical hernia. The exact cause is not clear. Could be related to underlying hypoxemia or drug effect as the patient was discharged with [place] and the patient could've developed some hypoxemia and hypoventilation while on this medication. Urine tox is negative. CAT scan of the brain showing old lacunar stroke 2 COPD, severe 3 chronic hypoxic and hypercapnic respiratory failure, well compensated 4 lacunar stroke based on the CAT scan findings 5 umbilical hernia repair 6 smoker 7 hypertension 8 diabetes mellitus Plan Hold [place] for now. Monitor the oxygenation. Provide the patient incentive spirometer. Put the patient on albuterol and Ipratropium nebulized treatments around the clock. Continue with daily Lasix 40 mg by mouth daily. Give additional 40 Mg is of a Lasix for now knowing that the patient is a component of pulmonary congestion. Likely needs O2 on outpatient basis. Likely need a sleep evaluation to rule out any sleep breathing disorder especially with his chronic hypoxic and hypercapnic respiratory failure. Chest x-ray was reviewed. Patient is on the medical floor. We'll continue to follow.
[2017-08-22] MEDS ORDERED: FUROSEMIDE 10 MG/ML 4 ML VIAL IV STA (18:26)
[2017-08-22] MEDS ORDERED: BUDESONIDE 1 MG/2 ML NEBU INHALATION SCH (20:00)
[2017-08-22 20:36] LABS: Glucose,Whole Blood 159 mg/dL (75-99)
[2017-08-22] MEDS ORDERED: LISINOPRIL 10 MG TAB PO SCH (21:00)
[2017-08-22] MEDS: SODIUM CHLORIDE 0.9% 1,000 ML IV SCH (21:35)
[2017-08-22] MEDS: CARVEDILOL 12.5 MG TAB PO SCH (21:36)
[2017-08-22] MEDS: ACETAMINOPHEN TAB 325 MG TAB PO PRN (21:36)
--- NOTE | 2017-08-22 21:47 | P.PN ---
Progress Note - Text Progress Note Date: 08/22/17 I was called by RN to evaluate the patient for fever, lack of bowel movement and urine output, malaise and feeling tired. Patient reported that since the day of surgery 3 days ago he has not passed urine output or bowel movement. He had very poor by mouth intake, until he started developing hallucinations for which she came to the hospital this at the hallucinations are a mixture of auditory and visual hallucinations. He however denies any chest pain but does report generalized body aches. He feels nauseous and has very decreased by mouth intake but denies any throwing up. He reports constipation and is not sure if he is passing gases and he said most likely not. But again denies any specific pains like belly pain or chest pain, however reports generalized body aches and feeling extremely tired. On exam Constitutional: vital signs reviewed, low-grade fever, Not in acute distress, looks sweaty and tired Lungs: Poor air entry bilaterally, no appreciated rales. End expiratory wheezes , normal respiratory effort no use of accessory muscles Cardiovascular: Regular rate and rhythm, no murmurs, no gallops, no rubs, no peripheral edema Gastrointestinal: Soft, no tenderness to palpation, surgical site with dry dressing very slight mild erythema surrounding the surgical site without any induration no palpable hepatosplenomegally, bowel sounds negative Extremities: No digital cyanosis or clubbing, peripheral pulses palpable and equal over bilateral radial arteries and dorsalis pedis artery, no calf muscle tenderness Psych: Alert, oriented to place, person and time, appropriate affect, intact judgment Labs reviewed Assessment 66-year-old male with history of COPD, diabetes, and hypertension Status post abdominal wall hernia repair, umbilical 3 days ago. Presented to the hospital due to lack of bowel movement, feeling generalized malaise, poor by mouth intake, and mixed of auditory and visual hallucinations with some changes in mental status today. #Possible ileus from overuse of [place] Hold opiates Check electrolytes Clear liquid diets as tolerated Acute abdominal series Pending surgical evaluation for postop care No nausea or vomiting at this point IV fluid hydration Check lactic acid #Elevated CPK this is possibly secondary to postoperative period, rule out rhabdomyolysis Patient complaining of generalized body aches Trend CPK IV fluid hydration with normal saline Monitor urine output #Acute kidney injury secondary to lack of urine output for over 6 hours Most recent creatinine was normal Stat basic metabolic panel Stat electrolytes Check bladder scan IV fluid hydration #Fever Check blood cultures Check urinalysis Tylenol for symptomatic control Medication reconciliation performed Continued patient inhalers, continued Coreg and lisinopril for hypertension Continue with aspirin Check another set of troponin I will continue to follow up closely on results 35 minutes were spent in critical care time providing evaluation and management for this patient
[2017-08-22 21:58] LABS: Anion Gap 11 mmol/L; Blood Urea Nitrogen 33 mg/dL (9-20); Calcium 9.4 mg/dL (8.4-10.2); Carbon Dioxide 36 mmol/L (22-30); Chloride 100 mmol/L (98-107); Creatine Kinase 811 U/L (55-170); Glucose 161 mg/dL (74-99); Sodium 147 mmol/L (137-145)
--- NOTE | 2017-08-22 22:05 | XR ---
EXAMINATION TYPE: XR abdomen acute w cxr DATE OF EXAM: 08/22/2017 CLINICAL HISTORY: Absent bowel sounds with no bowel movements for 5 days. History of hernia repair morales rgery 3 days ago. TECHNIQUE: Single AP frontal upright view of chest is obtained. Supine and upright views of the abdo men are acquired. COMPARISON: Chest x-ray from earlier today. FINDINGS: Low lung volumes are redemonstrated. The there is new right basilar linear atelectasis. E valuation is suboptimal secondary to patient's large body habitus. Left lung remains clear. Cardiac s ilhouette size appears stable and enlarged with atherosclerotic aorta. Osseous structures are intact . Gas is noted in nondistended small bowel loops. Gas and fecal material is seen in nondistended colon . No pneumoperitoneum, visceromegaly, or suspicious calcification is identified. Moderate joint spa ce loss of both hips is present. Multilevel spurring in the spine is seen. IMPRESSION: 1. Cardiomegaly without acute pulmonary process. 2. Overall nonobstructive bowel gas pattern.
[2017-08-22 23:01] LABS: Appearance,Urine Clear (Clear); Bilirubin,Urine Negative (Negative); Blood,Urine Small (Negative); Color,Urine Light Yellow; Glucose,Urine (UA) Negative (Negative); Ketones,Urine Negative (Negative); Leukocyte Esterase,Urine Negative (Negative); Mucus,Urine Rare /hpf; Nitrite,Urine Negative (Negative); Protein,Urine Negative (Negative); RBC,Urine 11 /hpf (0-5); Specific Gravity,Urine 1.009 (1.001-1.035); Urobilinogen,Urine <2.0 mg/dL (<2.0); WBC,Urine 6 /hpf (0-5)
[2017-08-23] MEDS: SODIUM CHLORIDE 0.9% 1,000 ML IV SCH (01:28)
[2017-08-23] MEDS: HEPARIN SODIUM,PORCINE 5,000 UNIT/ML 1 ML VIAL SQ SCH ×2 (01:28→09:01)
--- NOTE | 2017-08-23 05:51 | P.PN ---
Progress Note - Text Progress Note Date: 08/23/17 I was asked to evaluate the patient again by RN for A. fib with RVR. Associated with hypotension This converted spontaneously after patient passed large bowel movement consisted of hard stool. Patient seen and examined, reports no chest pain or trouble breathing. Reports no dizziness or lightheadedness . Repeat vital signs showed heart rate around 110 sinus tachycardia, EKG performed confirmed sinus tachycardia with no specific ST changes. Blood pressure was in the 120s systolic. Chest: Decreased breath sounds throughout not changed compared to before, no appreciated rales or wheezes at this time Patient responded well to IV fluid hydration overnight, he produced urine. Patient will receive another bolus of 500 mL normal saline and then we'll stop the IV fluid. Labs were reviewed and were unremarkable Continue to monitor closely Cardiology consultation for new onset A. fib
[2017-08-23 06:02] LABS: Glucose,Whole Blood 183 mg/dL (75-99)
[2017-08-23] MEDS: INSULIN ASPART 100 UNIT/ML 1 ML 10 ML VIAL SQ SCH ×4 (06:07→21:45)
[2017-08-23] MEDS: CARVEDILOL 12.5 MG TAB PO SCH ×2 (06:08→16:47)
--- NOTE | 2017-08-23 07:49 | P.PN ---
Subjective Progress Note Date: 08/23/17 Principal diagnosis: Altered mental status Patient had fever last night with body ache. Patient had a bowel movement yesterday, no reports of hallucinations, Objective - Vital Signs Vital signs: Vital Signs Temp 97.9 F 08/23/17 04:00 Pulse 111 H 08/23/17 05:15 Resp 28 H 08/23/17 05:15 BP 124/72 08/23/17 05:15 Pulse Ox 92 L 08/23/17 05:15 Intake & Output 08/22/17 08/23/17 08/23/17 18:59 06:59 18:59 Intake Total 120 1480 Output Total 0 1075 Balance 120 405 Weight 124.5 kg 126.5 kg Intake: IV 1000 Sodium Chloride 0.9% 1, 1000 000 ml @ 140 mls/hr IV . Q7H9M [facility] Rx#:[id number] Oral 120 480 Output: Urine 0 1075 Other: Voiding Method Urinal # Voids 0 # Bowel Movements 1 - Exam gen:alert and oriented lungs:clear to auscultation heart:s1s2 abdomen:soft and depressible,non tender, bowel sounds present ext:no edema - Labs CBC & Chem 7: 08/22/17 11:00 08/22/17 21:22 Labs: Abnormal Lab Results - Last 24 Hours (Table) 08/22/17 08/22/17 08/22/17 Range/Units 11:00 11:00 11:00 WBC 11.4 H (3.8-10.6) k/uL Neutrophils # 9.2 H (1.3-7.7) k/uL ABG pCO2 (35-45) mmHg ABG pO2 (83-108) mmHg ABG HCO3 (21-25) mmol/L ABG Total CO2 (19-24) mmol/L ABG O2 Saturation (94-97) % Sodium (137-145) mmol/L Carbon Dioxide 34 H (22-30) mmol/L BUN 38 H (9-20) mg/dL Glucose 260 H (74-99) mg/dL POC Glucose (mg/dL) (75-99) mg/dL Plasma Lactic Acid Ciro (0.7-2.0) mmol/L AST 82 H (17-59) U/L Alkaline Phosphatase 172 H (38-126) U/L Creatine Kinase (55-170) U/L Total Creatine Kinase 1310 H (55-170) U/L CK-MB (CK-2) 9.9 H* (0.0-2.4) ng/mL Urine Protein (Negative) Urine Blood (Negative) Urine RBC (0-5) /hpf Urine WBC (0-5) /hpf Urine Mucus (None) /hpf Urine Opiates Screen (NotDetected) 08/22/17 08/22/17 08/22/17 Range/Units 12:34 13:41 16:37 WBC (3.8-10.6) k/uL Neutrophils # (1.3-7.7) k/uL ABG pCO2 63 H (35-45) mmHg ABG pO2 63 L (83-108) mmHg ABG HCO3 36 H (21-25) mmol/L ABG Total CO2 38 H (19-24) mmol/L ABG O2 Saturation 92.0 L (94-97) % Sodium (137-145) mmol/L Carbon Dioxide (22-30) mmol/L BUN (9-20) mg/dL Glucose (74-99) mg/dL POC Glucose (mg/dL) 177 H (75-99) mg/dL Plasma Lactic Acid Ciro (0.7-2.0) mmol/L AST (17-59) U/L Alkaline Phosphatase (38-126) U/L Creatine Kinase (55-170) U/L Total Creatine Kinase (55-170) U/L CK-MB (CK-2) (0.0-2.4) ng/mL Urine Protein Trace H (Negative) Urine Blood (Negative) Urine RBC (0-5) /hpf Urine WBC (0-5) /hpf Urine Mucus (None) /hpf Urine Opiates Screen Detected H (NotDetected) 08/22/17 08/22/17 08/22/17 Range/Units 20:34 21:22 21:22 WBC (3.8-10.6) k/uL Neutrophils # (1.3-7.7) k/uL ABG pCO2 (35-45) mmHg ABG pO2 (83-108) mmHg ABG HCO3 (21-25) mmol/L ABG Total CO2 (19-24) mmol/L ABG O2 Saturation (94-97) % Sodium 147 H (137-145) mmol/L Carbon Dioxide 36 H (22-30) mmol/L BUN 33 H (9-20) mg/dL Glucose 161 H (74-99) mg/dL POC Glucose (mg/dL) 159 H (75-99) mg/dL Plasma Lactic Acid Ciro 0.6 L (0.7-2.0) mmol/L AST (17-59) U/L Alkaline Phosphatase (38-126) U/L Creatine Kinase 811 H (55-170) U/L Total Creatine Kinase (55-170) U/L CK-MB (CK-2) (0.0-2.4) ng/mL Urine Protein (Negative) Urine Blood (Negative) Urine RBC (0-5) /hpf Urine WBC (0-5) /hpf Urine Mucus (None) /hpf Urine Opiates Screen (NotDetected) 08/22/17 08/23/17 Range/Units 22:44 06:01 WBC (3.8-10.6) k/uL Neutrophils # (1.3-7.7) k/uL ABG pCO2 (35-45) mmHg ABG pO2 (83-108) mmHg ABG HCO3 (21-25) mmol/L ABG Total CO2 (19-24) mmol/L ABG O2 Saturation (94-97) % Sodium (137-145) mmol/L Carbon Dioxide (22-30) mmol/L BUN (9-20) mg/dL Glucose (74-99) mg/dL POC Glucose (mg/dL) 183 H (75-99) mg/dL Plasma Lactic Acid Ciro (0.7-2.0) mmol/L AST (17-59) U/L Alkaline Phosphatase (38-126) U/L Creatine Kinase (55-170) U/L Total Creatine Kinase (55-170) U/L CK-MB (CK-2) (0.0-2.4) ng/mL Urine Protein (Negative) Urine Blood Small H (Negative) Urine RBC 11 H (0-5) /hpf Urine WBC 6 H (0-5) /hpf Urine Mucus Rare H (None) /hpf Urine Opiates Screen (NotDetected) Assessment and Plan (1) Fever Narrative/Plan: low grade ua negative,no leukocytosis, abdomen non tender source unclear blood cultures ordered Current Visit: Yes Status: Acute Code(s): R50.9 - FEVER, UNSPECIFIED SNOMED Code(s): 621452026 (2) Altered mental status Narrative/Plan: Improved, no reports of hallucinations overnight Current Visit: Yes Status: Acute Code(s): R41.82 - ALTERED MENTAL STATUS, UNSPECIFIED SNOMED Code(s): 832597321 (3) Dehydration Narrative/Plan: Continue fluids Current Visit: Yes Status: Acute Code(s): E86.0 - DEHYDRATION SNOMED Code( s): 21190591 (4) Hypercarbia Current Visit: Yes Status: Acute Code(s): R06.89 - OTHER ABNORMALITIES OF BREATHING SNOMED Code(s): 84039509 (5) Diabetes mellitus Narrative/Plan: Controlled Current Visit: Yes Status: Acute Code(s): E11.9 - TYPE 2 DIABETES MELLITUS WITHOUT COMPLICATIONS SNOMED Code(s): 26713555 (6) Hypertension Narrative/Plan: Controlled Current Visit: Yes Status: Acute Code(s): I10 - ESSENTIAL (PRIMARY) HYPERTENSION SNOMED Code(s): 13393841 (7) Congestive heart failure Current Visit: Yes Status: Acute Code(s): I50.9 - HEART FAILURE, UNSPECIFIED SNOMED Code(s): 10869629 (8) S/P hernia repair Narrative/Plan: Surgery to evaluate today Current Visit: Yes Status: Acute Code(s): Z98.890 - OTHER SPECIFIED POSTPROCEDURAL STATES; Z87.19 - PERSONAL HISTORY OF OTHER DISEASES OF THE DIGESTIVE SYSTEM SNOMED Code(s): 37489614703752
[2017-08-23] MEDS: IPRATROPIUM-ALBUTEROL 3 ML NEB INHALATION SCH ×4 (08:33→20:20)
[2017-08-23] MEDS: SYMBICORT 160-4.5 MCG INHALER INHALATION SCH ×2 (08:33→20:20)
[2017-08-23] MEDS: ACETAMINOPHEN TAB 325 MG TAB PO PRN ×2 (09:00→21:52)
[2017-08-23] MEDS: TAMSULOSIN 0.4 MG CAP.ER.24H PO SCH (09:01)
[2017-08-23] MEDS: ALLOPURINOL 300 MG TAB PO SCH (09:01)
[2017-08-23] MEDS: ASPIRIN 81 MG PO SCH (09:01)
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
--- NOTE | 2017-08-23 10:58 | CONS ---
CONSULTATION HISTORY: Mr. Zuleta is a 66-year-old male who presented to the hospital with change in mental status. He recently underwent a herniorrhaphy and came back with hallucinations. The patient has a known history of chronic tobacco use, history of hypertension, hyperlipidemia, diabetes mellitus. He went home on oxycodone, but at home started to have hallucinations. Because of that, he was readmitted to the hospital. He is limited in his physical activity with significant dyspnea on exertion. He was told in the past that he has congestive heart failure, although details of that are not available to me. He has no prior cardiac history otherwise, but yesterday had an episode of atrial fibrillation that converted back to sinus mechanism. He has some peripheral edema, episode of PND. He has no knowledge of the arrhythmia. It is unclear if he had recurrent atrial fibrillation in the past. He has no recent cardiac workup. He is back in sinus mechanism feeling better on the BiPAP. He has chronic hypoxic hypercapnic respiratory failure related to obstructive sleep apnea and chronic tobacco use. His coronary risk factors are remarkable for smoking, hypertension, hyperlipidemia, and diabetes mellitus. MEDICATIONS: Include Ventolin, Zyloprim, and aspirin. Coreg 25 mg twice a day. , Lasix 40 mg daily, insulin, lisinopril 30 mg daily, omega-3 fish oil. Glipizide 10 mg twice a day. Metformin 1 g twice a day. REVIEW OF SYSTEMS: Respiratory system: He has significant dyspnea on exertion. Cough and wheezing. Symptoms of obstructive sleep. GI system: He had a recent hernia. No recent GI bleeding. system: No dysuria or hematuria. Nervous system: No history of stroke or seizure. He had a change in mental status as noted. PHYSICAL EXAMINATION: He is a 66-year-old male, alert, somnolent at times. Obese. Blood pressure 118/60 with a heart rate in the 100s. HEAD: Normocephalic. Eyes sclerae anicteric. Neck good upstroke. No bruit noted. LUNGS: With decreased air exchange. Heart regular rate and rhythm, S1, S2. No S3 with a systolic murmur. No diastolic murmur. No rub. ABDOMEN: Soft. Mild tenderness noted at the site of surgery with mild erythema. EXTREMITIES: With chronic stasis and decreased distal pulses. LAB DATA: His BUN and creatinine 33 and 0.8. Potassium 4.0, hemoglobin of 16.2, white blood cell of 11.4, his pCO2 63, PO2 of 63. His troponin 0.027 and NT proBNP is 318. Initial EKG revealed a sinus mechanism, rate of 125, subsequently he had a tracing of atrial fibrillation and he is back in sinus mechanism at this time with no acute ST-segment changes and nonspecific ST-T waves. IMPRESSION: 1. Paroxysmal atrial fibrillation, probably exacerbated by the sleep apnea and the lung status. Change in mental status could be related to chronic hypoxemia and hypercapnia. 2. Status post recent herniorrhaphy. 3. Hypertension. 4. Hyperlipidemia. 5. Diabetes mellitus. RECOMMENDATIONS: From the cardiac standpoint, I have discussed the findings with the son and regarding to the anticoagulation we will initiate anticoagulation. We will obtain echocardiogram with Doppler. Obtain evaluation of thyroid function tests. The patient is at a high risk of having recurrent atrial fibrillation in view of his overall status. We will initiate treatment with a statin because of his history of diabetes. He has been evaluated by Dr. Kraus regarding his lung status and he will require the BiPAP. Depending on his progress, further recommendation will be made. Thank you for this consult. We will follow with you. MMODL / IJN: [id number] /
[2017-08-23 11:54] LABS: Glucose,Whole Blood 202 mg/dL (75-99)
[2017-08-23 12:01] LABS: T4, Free (Free Thyroxine) 1.46 ng/dL (0.78-2.19)
--- NOTE | 2017-08-23 12:16 | P.PN ---
Subjective Progress Note Date: 08/23/17 This 66-year-old male patient has COPD, chronic hypoxic and hypercapnic respiratory failure however has not had any adequate follow-up in terms of his pulmonary condition. He states that he has not been maintained on oxygen even. He smokes on a regular basis 1 pack of cigarettes a day. He underwent a recent abdominal wall hernia repair and he was discharged home on oxycodone. Surgery went fine and the patient did not have any immediate postoperative complications. The patient subsequently started developing some hallucination. He was able to see images of family members coming in visiting him and he had some auditory hallucinations. Denies having any chest pain. No cough or sputum production. No hemoptysis or pleurisy. No swelling lower extremities. No abdominal pain. Surgical wound site over the abdominal wall is dry clean and intact. No fever or chills. He came into the emergency room her chest x- ray was done and the blood gases was done. The chest x-ray reveals cardiomegaly along with some mild pulmonary vessel congestion and the blood gases showed a pH of 7.37 with a pCO2 of 63 and pO2 of 63 and this was on FiO2 of 28% consistent with chronic hypoxic and hypercapnic respiratory failure. He denies having any respiratory difficulties. No nausea vomiting or abdominal pain. No 70 psychiatric history. Most of depression perhistory of schizophrenia. He is diabetic. He also has history of BPH. He is obese. No 70 CPAP therapy at home. No 70 documented sleep breathing disorder. The patient's CPK is 1300. The troponin is a 0.02. Urinalysis negative. Urine drug screen is positive for opiates. EKG was showing sinus tachycardia type of admission with a heart rate of 125 and some nonspecific T-wave changes. The patient had a CAT scan of the brain was also negative. There is evidence of old lacunar infarct in the external capsule on the left and chronic white matter ischemic changes. On 08/23/2017 I'm seeing this patient for a follow-up. He is resting comfortably in bed. I was able to witness some apneas that was occurring while the patient was sleeping. It happened at a time when I came in to evaluate this patient and the patient was taken a nap and is obvious that the patient is having apneas. As such the patient has likely an underlying obstructive sleep apnea in addition to COPD contributing to his chronic hypercapnic respiratory failure. The patient also has chronic hypoxic respiratory failure. He was easily arousable. He does not have any hallucinations over the past 24 hours. He was having episodes of fever. He was also noted to have a run of atrial fibrillation which converted back to normal sinus rhythm. For that reason, cardiology was consulted and general surgery will be also evaluating the patient regarding his most recent hernia repair. There is some erythema over the anterior abdominal wall which raises the suspicion for an underlying abdominal wall cellulitis/infection. No drainage from the surgical wound site. Patient denies having any cough or sputum production. No chest pain. He is tolerating his diet. No nausea or vomiting. A lengthy discussion with the son who tells me that the patient has been in a poor health over the past 2 years. He has been sleeping a lot and he spends most of the time in bed and is been essentially sedentary. He is a chronic smoker. Probably chronic hypoxic yet he hasn't been using any form of respiratory medications are oxygen therapy. Cardiology will be also evaluating this patient today. His T-max was 100.4 Objective - Vital Signs Vital signs: Vital Signs Temp 96.7 F L 08/23/17 08:00 Pulse 124 H 08/23/17 11:57 Resp 16 08/23/17 08:00 BP 118/66 08/23/17 08:00 Pulse Ox 94 L 08/23/17 08:00 Intake & Output 08/22/17 08/23/17 08/23/17 18:59 06:59 18:59 Intake Total 120 1480 240 Output Total 0 1075 Balance 120 405 240 Weight 124.5 kg 126.5 kg Intake: IV 1000 Sodium Chloride 0.9% 1, 1000 000 ml @ 140 mls/hr IV . Q7H9M [facility] Rx#:[id number] Oral 120 480 240 Output: Urine 0 1075 Other: Voiding Method Urinal Urinal # Voids 0 # Bowel Movements 1 - Exam Gen. appearance is calm comfortable likely distress.Head exam was generally normal. There was no scleral icterus or corneal arcus. Mucous membranes were moist.Neck was supple and without jugular venous distension, thyromegaly, or carotid bruits. Carotids were easily palpable bilaterally. There was no adenopathy. Crowding of posterior pharynx is seen. Lungs are diminished breath sounds bilaterally along with some few scattered external wheeze upon forceful expiratory maneuvers yet overall breath sounds are markedly diminished bilaterally to the point where the status chest can be essentially silent.Cardiac exam revealed the PMI to be normally situated and sized. The rhythm was regular and no extrasystoles were noted during several minutes of auscultation. The first and second heart sounds were normal and physiologic splitting of the second heart sound was noted. There were no murmurs, rubs, clicks, or gallops. Overall heart sounds are distant. Abdomen is soft and the surgical wound sites are all dry clean and intact. There is some redness and the infraumbilical area. I'm not sure if this is a representation of a wound infection with abdominal wall cellulitis. This is something to watch for. No direct tenderness, rebound tensile guarding.Examination of the extremities revealed easily palpable radial, femoral and pedal pulses. There was no cyanosis , clubbing or edema. Neurologically the patient awake and alert and there is no focal logical deficits that this point. Psychiatrically the patient was having some hallucinations. He has appropriate mood and affect. - Labs CBC & Chem 7: 08/22/17 11:00 08/22/17 21:22 Labs: Abnormal Lab Results - Last 24 Hours (Table) 08/22/17 08/22/17 08/22/17 Range/Units 11:00 11:00 11:00 WBC 11.4 H (3.8-10.6) k/uL Neutrophils # 9.2 H (1.3-7.7) k/uL ABG pCO2 (35-45) mmHg ABG pO2 (83-108) mmHg ABG HCO3 (21-25) mmol/L ABG Total CO2 (19-24) mmol/L ABG O2 Saturation (94-97) % Sodium (137-145) mmol/L Carbon Dioxide 34 H (22-30) mmol/L BUN 38 H (9-20) mg/dL Glucose 260 H (74-99) mg/dL POC Glucose (mg/dL) (75-99) mg/dL Plasma Lactic Acid Ciro (0.7-2.0) mmol/L AST 82 H (17-59) U/L Alkaline Phosphatase 172 H (38-126) U/L Creatine Kinase (55-170) U/L Total Creatine Kinase 1310 H (55-170) U/L CK-MB (CK-2) 9.9 H* (0.0-2.4) ng/mL TSH (0.465-4.680) mIU/L Urine Protein (Negative) Urine Blood (Negative) Urine RBC (0-5) /hpf Urine WBC (0-5) /hpf Urine Mucus (None) /hpf Urine Opiates Screen (NotDetected) 08/22/17 08/22/17 08/22/17 Range/Units 12:34 13:41 16:37 WBC (3.8-10.6) k/uL Neutrophils # (1.3-7.7) k/uL ABG pCO2 63 H (35-45) mmHg ABG pO2 63 L (83-108) mmHg ABG HCO3 36 H (21-25) mmol/L ABG Total CO2 38 H (19-24) mmol/L ABG O2 Saturation 92.0 L (94-97) % Sodium (137-145) mmol/L Carbon Dioxide (22-30) mmol/L BUN (9-20) mg/dL Glucose (74-99) mg/dL POC Glucose (mg/dL) 177 H (75-99) mg/dL Plasma Lactic Acid Ciro (0.7-2.0) mmol/L AST (17-59) U/L Alkaline Phosphatase (38-126) U/L Creatine Kinase (55-170) U/L Total Creatine Kinase (55-170) U/L CK-MB (CK-2) (0.0-2.4) ng/mL TSH (0.465-4.680) mIU/L Urine Protein Trace H (Negative) Urine Blood (Negative) Urine RBC (0-5) /hpf Urine WBC (0-5) /hpf Urine Mucus (None) /hpf Urine Opiates Screen Detected H (NotDetected) 08/22/17 08/22/17 08/22/17 Range/Units 20:34 21:22 21:22 WBC (3.8-10.6) k/uL Neutrophils # (1.3-7.7) k/uL ABG pCO2 (35-45) mmHg ABG pO2 (83-108) mmHg ABG HCO3 (21-25) mmol/L ABG Total CO2 (19-24) mmol/L ABG O2 Saturation (94-97) % Sodium 147 H (137-145) mmol/L Carbon Dioxide 36 H (22-30) mmol/L BUN 33 H (9-20) mg/dL Glucose 161 H (74-99) mg/dL POC Glucose (mg/dL) 159 H (75-99) mg/dL Plasma Lactic Acid Ciro 0.6 L (0.7-2.0) mmol/L AST (17-59) U/L Alkaline Phosphatase (38-126) U/L Creatine Kinase 811 H (55-170) U/L Total Creatine Kinase (55-170) U/L CK-MB (CK-2) (0.0-2.4) ng/mL TSH (0.465-4.680) mIU/L Urine Protein (Negative) Urine Blood (Negative) Urine RBC (0-5) /hpf Urine WBC (0-5) /hpf Urine Mucus (None) /hpf Urine Opiates Screen (NotDetected) 08/22/17 08/22/17 08/23/17 Range/Units 21:22 22:44 06:01 WBC (3.8-10.6) k/uL Neutrophils # (1.3-7.7) k/uL ABG pCO2 (35-45) mmHg ABG pO2 (83-108) mmHg ABG HCO3 (21-25) mmol/L ABG Total CO2 (19-24) mmol/L ABG O2 Saturation (94-97) % Sodium (137-145) mmol/L Carbon Dioxide (22-30) mmol/L BUN (9-20) mg/dL Glucose (74-99) mg/dL POC Glucose (mg/dL) 183 H (75-99) mg/dL Plasma Lactic Acid Ciro (0.7-2.0) mmol/L AST (17-59) U/L Alkaline Phosphatase (38-126) U/L Creatine Kinase (55-170) U/L Total Creatine Kinase (55-170) U/L CK-MB (CK-2) (0.0-2.4) ng/mL TSH 0.221 L (0.465-4.680) mIU/L Urine Protein (Negative) Urine Blood Small H (Negative) Urine RBC 11 H (0-5) /hpf Urine WBC 6 H (0-5) /hpf Urine Mucus Rare H (None) /hpf Urine Opiates Screen (NotDetected) 08/23/17 Range/Units 11:38 WBC (3.8-10.6) k/uL Neutrophils # (1.3-7.7) k/uL ABG pCO2 (35-45) mmHg ABG pO2 (83-108) mmHg ABG HCO3 (21-25) mmol/L ABG Total CO2 (19-24) mmol/L ABG O2 Saturation (94-97) % Sodium (137-145) mmol/L Carbon Dioxide (22-30) mmol/L BUN (9-20) mg/dL Glucose (74-99) mg/dL POC Glucose (mg/dL) 202 H (75-99) mg/dL Plasma Lactic Acid Ciro (0.7-2.0) mmol/L AST (17-59) U/L Alkaline Phosphatase (38-126) U/L Creatine Kinase (55-170) U/L Total Creatine Kinase (55-170) U/L CK-MB (CK-2) (0.0-2.4) ng/mL TSH (0.465-4.680) mIU/L Urine Protein (Negative) Urine Blood (Negative) Urine RBC (0-5) /hpf Urine WBC (0-5) /hpf Urine Mucus (None) /hpf Urine Opiates Screen (NotDetected) Assessment and Plan Plan: Assessment 1 acute hallucination, occurring postop day #4 following a repair of an umbilical hernia. The exact cause is not clear. Could be related to underlying hypoxemia or drug effect as the patient was discharged with [place] and the patient could've developed some hypoxemia and hypoventilation while on this medication. Urine tox is negative. CAT scan of the brain showing old lacunar stroke On today's evaluation of 08/23/2017, the patient has oxygenating well. The patient is resting comfortably in bed. He'll be supported with BiPAP for now regarding chronic hypercapnic respiratory failure and possible obstructive sleep apnea as today's observation clearly indicated the patient has an underlying sleep breathing disorder. 2 COPD, severe,chronic hypoxic and hypercapnic respiratory failure, well compensated 3 episodic fever currently under investigation. Rule out abdominal wall infection. We'll obtain a general surgical consultation. The past several of the abdomen showed non-obstructive bowel gas pattern and there is some baseline cardiomegaly. 4 lacunar stroke based on the CAT scan findings 5 umbilical hernia repair 6 smoker 7 hypertension 8 diabetes mellitus 9 paroxysmal atrial fibrillation, awaiting a cardiology evaluation Plan Continue holding [place] that may potentially affect with a mental status. We'll provide this patient BiPAP at an empiric pressure of 10/5 cm of water and this will be arbitrary pressures till the patient undergoes a sleep study and accurate pressures are packed and recommended. We'll ask cardiology to evaluate this patient regarding the approximate defibrillation and the patient will have an echo of the heart. The patient will obviously need home O2. The patient will need to be monitored regarding his fever and general surgery will be evaluating this patient's abdominal wall. We'll monitor and make sure there is no involution of any wound infection or abdominal wall cellulitis.
[2017-08-23] MEDS: ATORVASTATIN 40 MG TAB PO SCH (16:47)
[2017-08-23 16:52] LABS: Glucose,Whole Blood 170 mg/dL (75-99)
[2017-08-23] MEDS ORDERED: RIVAROXABAN 20 MG TAB PO SCH (17:30)
[2017-08-23 20:55] LABS: Hemoglobin A1C 7.4 % (4.0-6.0)
[2017-08-23 21:01] LABS: Glucose,Whole Blood 174 mg/dL (75-99)
[2017-08-23] MEDS ORDERED: VANCOMYCIN IV PER PHARMACY 1 EACH MISC MISCELLANE PRN (21:48)
[2017-08-23] MEDS ORDERED: VANCOMYCIN 2,000 MG in SODIUM CHLORIDE 0.9% 500 ML IVPB ONE (22:30)
[2017-08-24] MEDS ORDERED: CALCIUM CARBONATE 500 MG CHEWABLE PO PRN (00:22)
[2017-08-24] MEDS ORDERED: ONDANSETRON 4 MG/2 ML VIAL IVP PRN (01:12)
[2017-08-24] MEDS ORDERED: RX INFO: IV CONTRAST WAS GIVEN 1 EACH MISC MISCELLANE PRN (01:22)
[2017-08-24] MEDS ORDERED: BARIUM SULFATE 450 ML ORAL.SUSP BOTTLE PO PRN (01:22)
[2017-08-24] MEDS ORDERED: diphenhydrAMINE 50 MG/ML 1 ML VIAL IVP ONE (01:25)
[2017-08-24] MEDS ORDERED: methylPREDNISolone SOD SUCCI 125 MG/2 ML VIAL IV ONE (01:25)
[2017-08-24] MEDS ORDERED: FAMOTIDINE 20 MG/2 ML VIAL IV ONE (01:25)
--- NOTE | 2017-08-24 03:08 | XR ---
EXAMINATION TYPE: XR abdomen 1V DATE OF EXAM: 08/24/2017 COMPARISON: 08/22/2017 HISTORY: Nausea and pain TECHNIQUE: 5 views FINDINGS: there is some retained fecal material in the right colon. I see no sign of free air. There are loops of small bowel in the left mid abdomen with mild distention. There are no pathologic calcifications o liliam the kidneys. IMPRESSION: Possible mild small bowel ileus. No free air. Mild constipation.
[2017-08-24 06:40] LABS: Anion Gap 10 mmol/L; Blood Urea Nitrogen 24 mg/dL (9-20); Calcium 9.4 mg/dL (8.4-10.2); Carbon Dioxide 38 mmol/L (22-30); Chloride 99 mmol/L (98-107); Glucose 178 mg/dL (74-99); Potassium 4.2 mmol/L (3.5-5.1); Sodium 147 mmol/L (137-145)
[2017-08-24 06:43] LABS: HCT 44.8 % (39.0-53.0); Hypochromasia Slight; MCH 30.4 pg (25.0-35.0); MCHC 31.3 g/dL (31.0-37.0); MCV 97.1 fL (80.0-100.0); Mean Platelet Volume 7.2; Platelet Count 196 k/uL (150-450); RBC 4.61 m/uL (4.30-5.90); RDW 13.1 % (11.5-15.5); WBC 9.8 k/uL (3.8-10.6)
[2017-08-24 06:47] LABS: Glucose,Whole Blood 159 mg/dL (75-99)
[2017-08-24] MEDS: INSULIN ASPART 100 UNIT/ML 1 ML 10 ML VIAL SQ SCH ×4 (07:01→20:45)
--- NOTE | 2017-08-24 07:49 | CT ---
EXAMINATION TYPE: CT abdomen pelvis wo con DATE OF EXAM: 08/24/2017 COMPARISON: NONE HISTORY: Diaphoresis, vomiting, diarrhea CT DLP: 1541.9 mGycm Automated exposure control for dose reduction was used. TECHNIQUE: Helical acquisition of images was performed from the lung bases through the pelvis. FINDINGS: LUNG BASES: Bibasilar subsegmental atelectasis and a trace pleural effusion are seen. Left lung is cl ear. LIVER/GB: Incidental note of cholelithiasis. No common bile duct dilatation. The unenhanced liver is unremarkable in morphology. PANCREAS: No ductal dilatation. SPLEEN: No splenomegaly. ADRENALS: No thickening or nodularity. KIDNEYS: Nonobstructing 3 mm upper pole and 2 mm lower pole calculi are seen on the right. There is m arked atrophy of the left kidney with a 3 mm upper pole nonobstructing calculus. No hydronephrosis bi laterally REPRODUCTIVE ORGANS: Prostate gland is enlarged measuring 5.9 cm in transverse dimension containing c entral zone calcifications. There is impression upon the urinary bladder by the enlarged prostate gla nd. URINARY BLADDER: No significant abnormality is seen. ADENOPATHY: No greater than 1 cm short axis lymph nodes are seen within the abdomen or pelvis. OSSEOUS STRUCTURES: Moderate multilevel degenerative changes of the visualized thoracolumbar spine a re noted. BOWEL: Descending colonic and sigmoid diverticula are seen without pericolonic fat stranding. There is diffuse bowel wall thickening of the transverse colon and ascending colon with lack of haustral ma rkings and mild surrounding inflammatory fat stranding indicative of colitis. Additionally within the anterior mesentery of the periumbilical region there is a 4.3 x 2.3 cm central fat density adjacent to a ventral hernia containing foci of air with suspected prior hernia repair. Foci of air are locate d outside the intra-abdominal cavity in the subcutaneous tissues/hernia. Enteric tube is seen within the gastric lumen. IMPRESSION: 1. BOWEL WALL THICKENING AND LACK OF HAUSTRATION OF THE ASCENDING AND TRANSVERSE COLON COMPATIBLE WIT H COLITIS. NO PERICOLONIC ABSCESS. 2. FAT ATTENUATED STRUCTURE ALONG THE ANTIMESENTERIC BORDER OF THE TRANSVERSE COLON WITH SURROUNDING INFLAMMATORY FAT STRANDING. THIS COULD RELATE TO OMENTAL INFARCT OR EPIPLOIC APPENDAGITIS. 3. FOCI OF AIR WITHIN THE SUBCUTANEOUS TISSUES ABUTTING THE FAT FILLED SMALL VENTRAL HERNIA. CORRELAT E FOR RECENT SUBCUTANEOUS INJECTIONS OR RECENT SURGICAL INTERVENTION. OTHERWISE INFECTION SHOULD BE C ONSIDERED. 4. SMALL RIGHT PLEURAL EFFUSION AND RIGHT BASILAR ATELECTASIS
--- NOTE | 2017-08-24 08:07 | XR ---
EXAMINATION TYPE: XR chest 1V portable DATE OF EXAM: 08/24/2017 COMPARISON: Prior chest 08/22/2017 HISTORY: Difficulty in breathing TECHNIQUE: Single frontal view of the chest is obtained. FINDINGS: The patient is rotated. Patchy basilar density is noted. Heart size is exaggerated by rotat ion. No evident pneumothorax or sizable effusion. Tube is in place. Distal tip not included on the ex am. IMPRESSION: Correlate for right lower lobe pneumonia versus atelectasis and possible small effusion
[2017-08-24] MEDS: SYMBICORT 160-4.5 MCG INHALER INHALATION SCH ×2 (08:09→20:14)
[2017-08-24] MEDS: IPRATROPIUM-ALBUTEROL 3 ML NEB INHALATION SCH ×4 (08:10→20:14)
[2017-08-24] MEDS ORDERED: LEVOFLOXACIN 500MG-D5W PMX 500 MG in DEXTROSE/WATER 1 100ML.BAG IVPB SCH (08:30)
--- NOTE | 2017-08-24 08:34 | P.PN ---
Progress Note - Text Progress Note Date: 08/24/17 I was notified by RN to evaluate patient tachypnea, A team was notified. Patient is denying any chest pain or abdominal pain however he feels short of breath currently using nasal cannula. Patient had an NG tube throughout the night for which BiPAP was not started, NG tube drainage around 700 mL possibly bloodstained patient has been having multiple bowel movements with diarrhea every few minutes throughout the night On exam vital signs are currently stable except for tachypnea as charted by the RN Chest exam reveals air entry within patient's baseline no evidence of wheezes or rales at this time Abdomen mild distention some generalized discomfort for deep palpation, bowel sounds remains negative Gen. patient is alert and oriented to place, person looks uncomfortable and tachypneic Extremities trace leg edema over the right side no tenderness to palpation of the calf muscles Patient to be started on BiPAP, once he feels better and stable he can proceed CAT scan of the abdomen Check Chest x-ray Follow-up morning labs Send stool for C. diff Morning. Notified to follow-up
[2017-08-24] MEDS: ATORVASTATIN 40 MG TAB PO SCH (09:03)
[2017-08-24] MEDS: ALLOPURINOL 300 MG TAB PO SCH (09:03)
[2017-08-24] MEDS: ASPIRIN 81 MG PO SCH (09:03)
[2017-08-24] MEDS: TAMSULOSIN 0.4 MG CAP.ER.24H PO SCH (09:03)
[2017-08-24] MEDS: CARVEDILOL 12.5 MG TAB PO SCH ×2 (09:03→17:24)
[2017-08-24] MEDS: VANCOMYCIN 2,000 MG in SODIUM CHLORIDE 0.9% 500 ML IVPB SCH ×2 (10:03→23:54)
--- NOTE | 2017-08-24 10:59 | ECHOF ---
Referral Reason:htn MEASUREMENTS -------- HEIGHT: 177.8 cm WEIGHT: 124.7 kg BP: 170/81 RVIDd: 3.8 cm (< 3.3) IVSd: 1.5 cm (0.6 - 1.1) LVIDd: 4.6 cm (3.9 - 5.3) LVPWd: 1.7 cm (0.6 - 1.1) IVSs: 2.0 cm LVIDs: 3.8 cm LVPWs: 2.3 cm LA Diam: 4.4 cm (2.7 - 3.8) LAESV Index (A-L): 27.09 ml/m Ao Diam: 3.5 cm (2.0 - 3.7) AV Cusp: 2.2 cm (1.5 - 2.6) MV EXCURSION: 17.961 mm (> 18.000) MV EF SLOPE: 85 mm/s (70 - 150) EPSS: 1.0 cm FINDINGS -------- Sinus rhythm. This was a technically adequate study. The left ventricular size is normal. There is severe concentric left ventricular hypertrophy. Ove rall left ventricular systolic function is low-normal with, an EF between 50 - 55 %. The right ventricle is mild to moderately enlarged. Normal LA size by volume 22+/-6 ml/m2. The right atrial size is normal. There is mild aortic valve sclerosis. Mild mitral annular calcification present. The tricuspid valve appears structurally normal. The pulmonic valve was not well visualized. The aortic root size is normal. The inferior vena cava is mildly dilated. There is no pericardial effusion. CONCLUSIONS -------- 1. Sinus rhythm. 2. This was a technically adequate study. 3. The left ventricular size is normal. 4. There is severe concentric left ventricular hypertrophy. 5. Overall left ventricular systolic function is low-normal with, an EF between 50 - 55 %. 6. The right ventricle is mild to moderately enlarged. 7. Normal LA size by volume 22+/-6 ml/m2. 8. The right atrial size is normal. 9. There is mild aortic valve sclerosis. 10. Mild mitral annular calcification present. 11. The tricuspid valve appears structurally normal. 12. The pulmonic valve was not well visualized. 13. The aortic root size is normal. 14. The inferior vena cava is mildly dilated. 15. There is no pericardial effusion. MANAGER ENGINE: Tiffany Rand RDCS
[2017-08-24 11:35] LABS: ALT 44 U/L (21-72); AST 39 U/L (17-59); Alkaline Phosphatase 164 U/L (38-126); Anion Gap 8 mmol/L; Blood Urea Nitrogen 23 mg/dL (9-20); Calcium 8.8 mg/dL (8.4-10.2); Chloride 100 mmol/L (98-107); Glucose 175 mg/dL (74-99); Potassium 4.3 mmol/L (3.5-5.1); Sodium 148 mmol/L (137-145); Total Bilirubin 0.5 mg/dL (0.2-1.3); Total Protein 5.4 g/dL (6.3-8.2)
[2017-08-24 11:41] LABS: Basophils % (A) 0 %; Eosinophils # (A) 0.2 k/uL (0-0.7); Eosinophils % (A) 2 %; HCT 48.1 % (39.0-53.0); HGB 14.6 gm/dL (13.0-17.5); Hypochromasia Slight; Lymphocytes # (A) 0.9 k/uL (1.0-4.8); Lymphocytes % (A) 10 %; MCH 29.6 pg (25.0-35.0); MCHC 30.4 g/dL (31.0-37.0); MCV 97.4 fL (80.0-100.0); Mean Platelet Volume 7.2; Monocytes # (A) 0.6 k/uL (0-1.0); Monocytes % (A) 6 %; Neutrophils # (A) 7.5 k/uL (1.3-7.7); Neutrophils % (A) 80 %; Platelet Count 217 k/uL (150-450); RBC 4.94 m/uL (4.30-5.90); RDW 12.8 % (11.5-15.5); WBC 9.3 k/uL (3.8-10.6)
[2017-08-24 11:44] LABS: ABG Base Excess 17.2 mmol/L; ABG Oxygen Saturation 93.8 % (94-97); ABG PCO2 68 mmHg (35-45); ABG PO2 68 mmHg (83-108); ABG TCO2 44 mmol/L (19-24)
[2017-08-24 11:45] LABS: Glucose,Whole Blood 173 mg/dL (75-99)
[2017-08-24 11:45] LABS: ABG HCO3 42 mmol/L (21-25)
[2017-08-24 11:46] LABS: Carbon Dioxide 40 mmol/L (22-30)
[2017-08-24] MEDS ORDERED: ASPIRIN 325 MG TAB PO SCH (12:00)
[2017-08-24] MEDS: metroNIDAZOLE-NS PMX 500 MG in SALINE 1 100ML.BAG IVPB SCH ×3 (12:03→23:54)
[2017-08-24] MEDS: PIPERACILLIN-TAZOBACTAM 3.375 GM in DEXTROSE/WATER 1 50ML.BAG IVPB SCH ×2 (12:52→20:24)
--- NOTE | 2017-08-24 13:26 | CDI ---
Last Revision, April 2017 Documentation Clarification Form Date: 08/24/2017 1:23:00 PM From: Princess HellerAIDA, CCDS Admit Date: 08/22/2017 2:52:00 PM Patient Name: Gene Zuleta Visit Number: [id number] Discharge Date: ATTENTION: The Clinical Documentation Specialists (CDI) and [facility] Coding Staff appreciate your assistance in clarifying documentation. Please respond to the clarification below the line at the bottom and electronically sign. The CDI & [facility] Coding staff will review the response and follow-up if needed. Please note: Queries are made part of the Legal Health Record. If you have any questions, please contact the author of this message via ITS. Dr. Georgette Kraus: The patient presented with the following respiratory symptoms: SOB, cough. Patient had recent hernia surgery, sent home on [place], returned with SOB, constipation & hallucinations. History/Risk Factors: COPD, CHF, Chronic hypoxic & hypercapnic respiratory failure, Smokes 1 ppd cigarettes. Clinical Indicators: Vital signs: T 98.1, P 123, R 22 (cough, sob), BP 149/63, PO 83 ra ABG/CBG: pH 7.37, pCO2 63, pO2 63, HCO3 36 Treatment: Neuro checks, Albuterol INH, IV Lasix, Heparin sq, O2 2-4Lnc In your professional opinion, can you please clarify the acuity of the patient' s respiratory failure? Acute Chronic Acute on Chronic Unable to determine Please include the type as previously documented. Please continue to document in your progress notes and discharge summary in order to capture severity of illness and risk of mortality. Include clinical findings that support your diagnosis. ACUTE ON CHRONIC RESPIRATORY FAILURE MTDD
--- NOTE | 2017-08-24 14:32 | P.PN ---
Subjective Progress Note Date: 08/24/17 The patient in mild respiratory distress with daughter at bedside, wearing his BiPAP mask, with a good oxygen saturations at 93%. Does appear to be tachypneic , had low-grade fevers overnight and this morning. Has NG tube in place with some output. No recent hallucinations. Objective - Vital Signs Vital signs: Vital Signs Temp 97.8 F 08/24/17 12:30 Pulse 105 H 08/24/17 12:55 Resp 29 H 08/24/17 12:30 BP 179/78 08/24/17 12:30 Pulse Ox 96 08/24/17 12:30 Intake & Output 08/23/17 08/24/17 08/24/17 18:59 06:59 18:59 Intake Total 720 Output Total 370 296 5316 Balance 520 -800 -1100 Weight 125 kg Intake: Oral 720 Output: Gastric Drainage 700 1100 Urine 200 100 Other: Voiding Method Urinal Urinal Urinal # Voids 0 # Bowel Movements 2 1 - Exam Constitutional: No acute distress, conversant, pleasant Eyes: Anicteric sclerae, moist conjunctiva, no lid-lag, PERRLA ENMT: NC/AT,Oropharynx clear, no erythema, exudates Neck:Supple, FROM, no masses, or JVD, No carotid bruits; No thyromegaly Lungs: Diminished with poor air movement diffusely, Clear to percussion, mild respiratory distress tachypneaic on BiPAP Cardiovascular: Heart regular in rate and rhythm, No murmurs, gallops, or rubs no peripheral edema Abdominal: Soft Nontender, nom distended, no guarding, no rebound or rigidity, Normoactive bowel sounds No hepatomegaly, No splenomegaly, No palpable mass No abdominal wall hernia noted Skin: Normal temperature, tone, texture, turgor, No induration No subcutaneous nodules, No rash, lesions, No ulcers Extremities:No digital cyanosis No clubbing, Pedal pulses intact and symmetrical Radial pulses intact and symmetrical Normal gait and station, No calf tenderness Psychiatric: Alert and oriented to person, place and time, Appropriate affect Intact judgement Neuro: Muscles Strength 5/5 in all 4 extremities, Sensation to light touch grossly present throughout, Cranial nerves II-XII grossly intact. No focal sensory deficits - Labs CBC & Chem 7: 08/24/17 11:00 08/24/17 11:00 Labs: Abnormal Lab Results - Last 24 Hours (Table) 08/22/17 08/23/17 08/23/17 Range/Units 11:00 16:46 20:58 MCHC (31.0-37.0) g/dL Lymphocytes # (1.0-4.8) k/uL ABG pCO2 (35-45) mmHg ABG pO2 (83-108) mmHg ABG HCO3 (21-25) mmol/L ABG Total CO2 (19-24) mmol/L ABG O2 Saturation (94-97) % Sodium (137-145) mmol/L Carbon Dioxide (22-30) mmol/L BUN (9-20) mg/dL Creatinine (0.66-1.25) mg/dL Glucose (74-99) mg/dL POC Glucose (mg/dL) 170 H 174 H (75-99) mg/dL Hemoglobin A1c 7.4 H (4.0-6.0) % Alkaline Phosphatase (38-126) U/L Total Protein (6.3-8.2) g/dL Albumin (3.5-5.0) g/dL 08/24/17 08/24/17 08/24/17 Range/Units 05:40 06:44 11:00 MCHC (31.0-37.0) g/dL Lymphocytes # (1.0-4.8) k/uL ABG pCO2 (35-45) mmHg ABG pO2 (83-108) mmHg ABG HCO3 (21-25) mmol/L ABG Total CO2 (19-24) mmol/L ABG O2 Saturation (94-97) % Sodium 147 H 148 H (137-145) mmol/L Carbon Dioxide 38 H 40 H* (22-30) mmol/L BUN 24 H 23 H (9-20) mg/dL Creatinine 0.60 L 0.64 L (0.66-1.25) mg/dL Glucose 178 H 175 H (74-99) mg/dL POC Glucose (mg/dL) 159 H (75-99) mg/dL Hemoglobin A1c (4.0-6.0) % Alkaline Phosphatase 164 H (38-126) U/L Total Protein 5.4 L (6.3-8.2) g/dL Albumin 3.0 L (3.5-5.0) g/dL 08/24/17 08/24/17 08/24/17 Range/Units 11:00 11:40 11:42 MCHC 30.4 L (31.0-37.0) g/dL Lymphocytes # 0.9 L (1.0-4.8) k/uL ABG pCO2 68 H (35-45) mmHg ABG pO2 68 L (83-108) mmHg ABG HCO3 42 H* (21-25) mmol/L ABG Total CO2 44 H (19-24) mmol/L ABG O2 Saturation 93.8 L (94-97) % Sodium (137-145) mmol/L Carbon Dioxide (22-30) mmol/L BUN (9-20) mg/dL Creatinine (0.66-1.25) mg/dL Glucose (74-99) mg/dL POC Glucose (mg/dL) 173 H (75-99) mg/dL Hemoglobin A1c (4.0-6.0) % Alkaline Phosphatase (38-126) U/L Total Protein (6.3-8.2) g/dL Albumin (3.5-5.0) g/dL Microbiology - Last 24 Hours (Table) 08/22/17 21:22 Blood Culture Gram Stain - Preliminary Blood 08/22/17 21:50 Blood Culture - Preliminary Blood No Growth after 24 hours 08/22/17 21:22 Blood Culture - Final Blood - Imaging and Cardiology CT scan - abdomen: report reviewed (1 Bowel wall thickening and lack of haustration with ascending and transverse colon compatible with colitis 2. Fat attenuated structure along the antimesenteric border of the transverse colon with surrounding inflammatory fat stranding this could be related to omental infarct or epiploic appendagitits 3. Foci of air within the subcutaneous tissues abutting the fat filled small ventral hernia correlate for recent subcutaneous injections or recent surgical intervention. 4 small right pleural effusion and right basilar atelectasis ) Assessment and Plan (1) Encephalopathy Narrative/Plan: * resolved likely multifactorial secondary chronic hypoxemic and hypercarbic respiratory failure superimposed on delirium triggered by ongoing hypoxia versus sepsis versus medication induced as patient was previously on narcotics hydrocodone postop * CT of the head only showing old lacunar infarct left external capsule with chronic white matter ischemic changes * Continue with antiplatelet therapy with aspirin we'll increase dose to 325 mg by mouth daily Current Visit: Yes Status: Acute Code(s): G93.40 - ENCEPHALOPATHY, UNSPECIFIED SNOMED Code(s): 03864127 (2) Chronic respiratory failure with hypoxia and hypercapnia Narrative/Plan: * Concern for worsening respiratory failure repeat ABG indicating ongoing hypoxemia and hypercapnia * Continue BiPAP per pulmonary recommendations/ pulmonology Dr. العراقي following * Ejection fraction 50-55% Current Visit: Yes Status: Acute Code(s): J96.11 - CHRONIC RESPIRATORY FAILURE WITH HYPOXIA; J96.12 - CHRONIC RESPIRATORY FAILURE WITH HYPERCAPNIA SNOMED Code(s): 87039401 (3) Diabetes mellitus Current Visit: Yes Status: Acute Code(s): E11.9 - TYPE 2 DIABETES MELLITUS WITHOUT COMPLICATIONS SNOMED Code(s): 93903299 (4) Sepsis Narrative/Plan: * Normal white blood cell count with ongoing fevers * CT abdomen and pelvis suggestive of colitis in the ascending and transverse colon on * Initiated on empiric IV antibiotics with Levaquin and Flagyl, we'll continue IV vancomycin and consult ID for further recommendations * Gen. surgery are already seen the patient and plans conservative management, will appreciate any further recommendations Current Visit: Yes Status: Acute Code(s): A41.9 - SEPSIS, UNSPECIFIED ORGANISM SNOMED Code(s): 59097950 (5) Infective colitis Narrative/Plan: * Treatment as above Current Visit: Yes Status: Acute Code(s): A09 - INFECTIOUS GASTROENTERITIS AND COLITIS, UNSPECIFIED SNOMED Code(s): 22350971 (6) Type 2 diabetes mellitus with hyperglycemia Narrative/Plan: * A1c 7.4, initiate correctional scale coverage Current Visit: Yes Status: Acute Code(s): E11.65 - TYPE 2 DIABETES MELLITUS WITH HYPERGLYCEMIA SNOMED Code(s): 469750263000100
[2017-08-24] MEDS ORDERED: KETOROLAC 30 MG/ML 1 ML VIAL IVP STA (14:47)
--- NOTE | 2017-08-24 14:47 | P.PN ---
Subjective Progress Note Date: 08/24/17 Principal diagnosis: Acute on chronic hypoxic and hypercapnic respiratory failure and recent episode of hallucination following repair of an umbilical hernia. This 66-year-old male patient has COPD, chronic hypoxic and hypercapnic respiratory failure however has not had any adequate follow-up in terms of his pulmonary condition. He states that he has not been maintained on oxygen even. He smokes on a regular basis 1 pack of cigarettes a day. He underwent a recent abdominal wall hernia repair and he was discharged home on oxycodone. Surgery went fine and the patient did not have any immediate postoperative complications. The patient subsequently started developing some hallucination. He was able to see images of family members coming in visiting him and he had some auditory hallucinations. Denies having any chest pain. No cough or sputum production. No hemoptysis or pleurisy. No swelling lower extremities. No abdominal pain. Surgical wound site over the abdominal wall is dry clean and intact. No fever or chills. He came into the emergency room her chest x- ray was done and the blood gases was done. The chest x-ray reveals cardiomegaly along with some mild pulmonary vessel congestion and the blood gases showed a pH of 7.37 with a pCO2 of 63 and pO2 of 63 and this was on FiO2 of 28% consistent with chronic hypoxic and hypercapnic respiratory failure. He denies having any respiratory difficulties. No nausea vomiting or abdominal pain. No 70 psychiatric history. Most of depression perhistory of schizophrenia. He is diabetic. He also has history of BPH. He is obese. No 70 CPAP therapy at home. No 70 documented sleep breathing disorder. The patient's CPK is 1300. The troponin is a 0.02. Urinalysis negative. Urine drug screen is positive for opiates. EKG was showing sinus tachycardia type of admission with a heart rate of 125 and some nonspecific T-wave changes. The patient had a CAT scan of the brain was also negative. There is evidence of old lacunar infarct in the external capsule on the left and chronic white matter ischemic changes. On 08/23/2017 I'm seeing this patient for a follow-up. He is resting comfortably in bed. I was able to witness some apneas that was occurring while the patient was sleeping. It happened at a time when I came in to evaluate this patient and the patient was taken a nap and is obvious that the patient is having apneas. As such the patient has likely an underlying obstructive sleep apnea in addition to COPD contributing to his chronic hypercapnic respiratory failure. The patient also has chronic hypoxic respiratory failure. He was easily arousable. He does not have any hallucinations over the past 24 hours. He was having episodes of fever. He was also noted to have a run of atrial fibrillation which converted back to normal sinus rhythm. For that reason, cardiology was consulted and general surgery will be also evaluating the patient regarding his most recent hernia repair. There is some erythema over the anterior abdominal wall which raises the suspicion for an underlying abdominal wall cellulitis/infection. No drainage from the surgical wound site. Patient denies having any cough or sputum production. No chest pain. He is tolerating his diet. No nausea or vomiting. A lengthy discussion with the son who tells me that the patient has been in a poor health over the past 2 years. He has been sleeping a lot and he spends most of the time in bed and is been essentially sedentary. He is a chronic smoker. Probably chronic hypoxic yet he hasn't been using any form of respiratory medications are oxygen therapy. Cardiology will be also evaluating this patient today. His T-max was 100.4 Patient was reevaluated today on 08/24/2017, he is still on BiPAP, his ABG is acceptable with adequate metabolic compensation for his respiratory acidosis. Patient is complaining about his BiPAP, however I will try to intermittently use high flow nasal cannula alternating with BiPAP. Clinically, the patient does have COPD with chronic hypoxic and hypercapnic respiratory failure. Apparently this was not manifested clearly until his recent admission to the hospital following his hernia repair. Apparently he was having intermittent episodes of hallucinations post surgery. ABG on BiPAP today showed a pO2 of 68 pCO2 of 68 pH of 7.40. CBC was normal. Basic metabolic profile is normal with bicarb of 40 which is expected considering his chronic hypercapnic respiratory failure. Objective - Vital Signs Vital signs: Vital Signs Temp 97.8 F 08/24/17 12:30 Pulse 105 H 08/24/17 12:55 Resp 29 H 08/24/17 12:30 BP 179/78 08/24/17 12:30 Pulse Ox 96 08/24/17 12:30 Intake & Output 08/23/17 08/24/17 08/24/17 18:59 06:59 18:59 Intake Total 720 Output Total 729 228 8164 Balance 520 -800 -1100 Weight 125 kg Intake: Oral 720 Output: Gastric Drainage 700 1100 Urine 200 100 Other: Voiding Method Urinal Urinal Urinal # Voids 0 # Bowel Movements 2 1 - Exam Physical Exam: Revealed a 66-year-old white male in no distress, on BiPAP. Head: Atraumatic, normocephalic. Eyes: PERRLA, EOMI, no icterus. HEENT:[Neck is supple.] [No neck masses.] [No thyromegaly.] [No JVD.] Chest: [Diminished breath sounds at the bases, no crackles or rhonchi or wheezes , patient does have a barrel chest.] Cardiac Exam: [Normal S1 and S2, no S3 gallop, no murmur.] Abdomen: [Postsurgical, some redness noted in the periumbilical area, could be related to her cellulitis of the abdominal wall. No rebound, no guarding. As the bowel sounds. Extremities: [No clubbing, no edema, no cyanosis.] Neurological Exam: [No focal neurologic deficit.] Psychiatric: Normal mood affect and mental status examination. Lymphatics: No lymphadenopathy. - Labs CBC & Chem 7: 08/24/17 11:00 08/24/17 11:00 Labs: Abnormal Lab Results - Last 24 Hours (Table) 08/22/17 08/23/17 08/23/17 Range/Units 11:00 16:46 20:58 MCHC (31.0-37.0) g/dL Lymphocytes # (1.0-4.8) k/uL ABG pCO2 (35-45) mmHg ABG pO2 (83-108) mmHg ABG HCO3 (21-25) mmol/L ABG Total CO2 (19-24) mmol/L ABG O2 Saturation (94-97) % Sodium (137-145) mmol/L Carbon Dioxide (22-30) mmol/L BUN (9-20) mg/dL Creatinine (0.66-1.25) mg/dL Glucose (74-99) mg/dL POC Glucose (mg/dL) 170 H 174 H (75-99) mg/dL Hemoglobin A1c 7.4 H (4.0-6.0) % Alkaline Phosphatase (38-126) U/L Total Protein (6.3-8.2) g/dL Albumin (3.5-5.0) g/dL 08/24/17 08/24/17 08/24/17 Range/Units 05:40 06:44 11:00 MCHC (31.0-37.0) g/dL Lymphocytes # (1.0-4.8) k/uL ABG pCO2 (35-45) mmHg ABG pO2 (83-108) mmHg ABG HCO3 (21-25) mmol/L ABG Total CO2 (19-24) mmol/L ABG O2 Saturation (94-97) % Sodium 147 H 148 H (137-145) mmol/L Carbon Dioxide 38 H 40 H* (22-30) mmol/L BUN 24 H 23 H (9-20) mg/dL Creatinine 0.60 L 0.64 L (0.66-1.25) mg/dL Glucose 178 H 175 H (74-99) mg/dL POC Glucose (mg/dL) 159 H (75-99) mg/dL Hemoglobin A1c (4.0-6.0) % Alkaline Phosphatase 164 H (38-126) U/L Total Protein 5.4 L (6.3-8.2) g/dL Albumin 3.0 L (3.5-5.0) g/dL 08/24/17 08/24/17 08/24/17 Range/Units 11:00 11:40 11:42 MCHC 30.4 L (31.0-37.0) g/dL Lymphocytes # 0.9 L (1.0-4.8) k/uL ABG pCO2 68 H (35-45) mmHg ABG pO2 68 L (83-108) mmHg ABG HCO3 42 H* (21-25) mmol/L ABG Total CO2 44 H (19-24) mmol/L ABG O2 Saturation 93.8 L (94-97) % Sodium (137-145) mmol/L Carbon Dioxide (22-30) mmol/L BUN (9-20) mg/dL Creatinine (0.66-1.25) mg/dL Glucose (74-99) mg/dL POC Glucose (mg/dL) 173 H (75-99) mg/dL Hemoglobin A1c (4.0-6.0) % Alkaline Phosphatase (38-126) U/L Total Protein (6.3-8.2) g/dL Albumin (3.5-5.0) g/dL Microbiology - Last 24 Hours (Table) 08/22/17 21:22 Blood Culture Gram Stain - Preliminary Blood 08/22/17 21:50 Blood Culture - Preliminary Blood No Growth after 24 hours 08/22/17 21:22 Blood Culture - Final Blood Assessment and Plan Assessment: 1 Acute on chronic hypoxic and hypercapnic respiratory failure secondary to COPD 2 postoperative hallucination most likely secondary to metabolic encephalopathy with relative hypoxia and hypercapnia. Again that is acute on chronic. Fever could be another contributing factor to his hallucination. 3 episodic fever currently under investigation. Rule out abdominal wall infection. That is being addressed by surgery on the case. 4 lacunar stroke based on the CAT scan findings 5 umbilical hernia repair 6 smoker 7 hypertension 8 diabetes mellitus 9 paroxysmal atrial fibrillation, awaiting a cardiology evaluation Recommendation: Continue present supportive care measures including BiPAP, intermittent high flow nasal cannula, continue antibiotics, and will follow. Discussed his condition with his daughter at bedside. Time with Patient: Less than 30
--- NOTE | 2017-08-24 15:45 | P.PN ---
Subjective Progress Note Date: 08/24/17 This is a 66-year-old gentleman admitted to the hospital with mental status changes. He recently underwent herniography and came back with hallucinations. Patient has known history of chronic tobacco use, hypertension, hyperlipidemia , diabetes, home O2, severe COPD, sleep apnea. Patient did have an episode of atrial fibrillation and converted back to normal sinus rhythm. This morning and 18 was called on the patient, he was quite hypoxic and short of breath. Through the night last night, patient also had a loss of bowel sounds and was having diarrhea for this reason an NG tube had been placed. At the time of our examination later in the morning, blood pressure 170/80 with a heart rate in the 90s, 93% on 4 L of oxygen. Patient has been initiated on Xarelto 20 mg daily, we will discontinue the full aspirin that he is on. A cardiogram with Doppler study was performed which revealed an ejection fraction of 50-55%. Patient was also running low-grade fevers through the night and this morning. A computed tomography scan of the abdomen was performed which revealed some bowel wall thickening with ascending and transverse colon compatible with colitis. Fat attenuated stricture along the antimesenteric border of the transverse colon with surrounding inflammatory fat stranding this could relate to omental infarct or appendicitis. Small right pleural effusion also noted. Objective - Vital Signs Vital signs: Vital Signs Temp 97.8 F 08/24/17 12:30 Pulse 105 H 08/24/17 12:55 Resp 29 H 08/24/17 12:30 BP 179/78 08/24/17 12:30 Pulse Ox 96 08/24/17 12:30 Intake & Output 08/23/17 08/24/17 08/24/17 18:59 06:59 18:59 Intake Total 720 Output Total 127 218 6979 Balance 520 -800 -1100 Weight 125 kg Intake: Oral 720 Output: Gastric Drainage 700 1100 Urine 200 100 Other: Voiding Method Urinal Urinal Urinal # Voids 0 # Bowel Movements 2 1 - Exam PHYSICAL EXAMINATION: HEENT: Head is atraumatic, normocephalic. Pupils equal, round. Neck is supple. There is no elevated jugular venous pressure. NG tube in place. HEART EXAMINATION: Heart S1, S2 normal. No murmur or gallop heard. CHEST EXAMINATION: Lungs reveal diminished breath sounds to the bases, patient does have a barrel chest ABDOMEN: Soft, nontender. Bowel sounds are heard. No organomegaly noted. EXTREMITIES: 2+ peripheral pulses with no evidence of peripheral edema and no calf tenderness noted. NEUROLOGIC patient is awake, alert and oriented -3. . - Labs CBC & Chem 7: 08/24/17 11:00 08/24/17 11:00 Labs: Abnormal Lab Results - Last 24 Hours (Table) 08/22/17 08/23/17 08/23/17 Range/Units 11:00 16:46 20:58 MCHC (31.0-37.0) g/dL Lymphocytes # (1.0-4.8) k/uL ABG pCO2 (35-45) mmHg ABG pO2 (83-108) mmHg ABG HCO3 (21-25) mmol/L ABG Total CO2 (19-24) mmol/L ABG O2 Saturation (94-97) % Sodium (137-145) mmol/L Carbon Dioxide (22-30) mmol/L BUN (9-20) mg/dL Creatinine (0.66-1.25) mg/dL Glucose (74-99) mg/dL POC Glucose (mg/dL) 170 H 174 H (75-99) mg/dL Hemoglobin A1c 7.4 H (4.0-6.0) % Alkaline Phosphatase (38-126) U/L Total Protein (6.3-8.2) g/dL Albumin (3.5-5.0) g/dL 08/24/17 08/24/17 08/24/17 Range/Units 05:40 06:44 11:00 MCHC (31.0-37.0) g/dL Lymphocytes # (1.0-4.8) k/uL ABG pCO2 (35-45) mmHg ABG pO2 (83-108) mmHg ABG HCO3 (21-25) mmol/L ABG Total CO2 (19-24) mmol/L ABG O2 Saturation (94-97) % Sodium 147 H 148 H (137-145) mmol/L Carbon Dioxide 38 H 40 H* (22-30) mmol/L BUN 24 H 23 H (9-20) mg/dL Creatinine 0.60 L 0.64 L (0.66-1.25) mg/dL Glucose 178 H 175 H (74-99) mg/dL POC Glucose (mg/dL) 159 H (75-99) mg/dL Hemoglobin A1c (4.0-6.0) % Alkaline Phosphatase 164 H (38-126) U/L Total Protein 5.4 L (6.3-8.2) g/dL Albumin 3.0 L (3.5-5.0) g/dL 08/24/17 08/24/17 08/24/17 Range/Units 11:00 11:40 11:42 MCHC 30.4 L (31.0-37.0) g/dL Lymphocytes # 0.9 L (1.0-4.8) k/uL ABG pCO2 68 H (35-45) mmHg ABG pO2 68 L (83-108) mmHg ABG HCO3 42 H* (21-25) mmol/L ABG Total CO2 44 H (19-24) mmol/L ABG O2 Saturation 93.8 L (94-97) % Sodium (137-145) mmol/L Carbon Dioxide (22-30) mmol/L BUN (9-20) mg/dL Creatinine (0.66-1.25) mg/dL Glucose (74-99) mg/dL POC Glucose (mg/dL) 173 H (75-99) mg/dL Hemoglobin A1c (4.0-6.0) % Alkaline Phosphatase (38-126) U/L Total Protein (6.3-8.2) g/dL Albumin (3.5-5.0) g/dL Microbiology - Last 24 Hours (Table) 08/22/17 21:22 Blood Culture Gram Stain - Preliminary Blood 08/22/17 21:50 Blood Culture - Preliminary Blood No Growth after 24 hours 08/22/17 21:22 Blood Culture - Final Blood Assessment and Plan Plan: Assessment and plan i #1 mental status changes, could be secondary to chronic hypoxemia and hypercapnia #2 paroxysmal atrial fibrillation #3 status post recent herniorrhaphy #4 hypertension # 5 hyperlipidemia #6 diabetes #7 COPD #8 sleep apnea #9 fever, rule out abdominal wall infection. #10 infective colitis Plan Echocardiogram with Doppler study revealed an ejection fraction of 50-55%. Blood pressure today 170/80 with a heart rate in the 90s to low 100s. Decrease aspirin to 81 mg daily . We will increase the dose of Coreg to 50 mg by mouth twice a day, continue the rest of the patient's medications. DNP note has been reviewed, I agree with a documented findings and plan of care. Patient was seen and examined.
--- NOTE | 2017-08-24 16:34 | P.PN ---
Progress Note - Text Progress Note Date: 08/24/17 The patient is resting comfortably in his bed. He had a CAT scan performed today which showed some evidence of descending colon inflammation. He had a nasogastric tube placed. He has put out approximately 800 mL of dark maroon colored fluid. The patient has no significant complaints of abdominal pain. On exam is lesser stable. His abdomen soft. There is no significant tenderness. There is no rebound or guarding. There is no evidence of peritoneal signs. Right colon colitis. Patient will receive supportive care. We will continue to observe him. No surgical intervention is planned at this point.
[2017-08-24 17:06] LABS: Glucose,Whole Blood 143 mg/dL (75-99)
[2017-08-24 20:16] LABS: Glucose,Whole Blood 145 mg/dL (75-99)
[2017-08-24] MEDS: PANTOPRAZOLE 40 MG/10 ML VIAL IVP SCH (20:45)
[2017-08-24] MEDS: KETOROLAC 30 MG/ML 1 ML VIAL IVP PRN (21:11)
--- NOTE | 2017-08-25 00:07 | CONS ---
CONSULTATION DATE OF SERVICE: 08/24/2017 REASON FOR CONSULTATION: 1. Positive blood culture. 2. Antibiotic recommendation. HISTORY OF PRESENT ILLNESS: The patient is a 66-year-old male who is status post incarcerated umbilical and ventral hernia repair along with partial omentectomy done by Dr. Dangelo on 08/19/2017 and subsequently discharge home. The patient apparently seemed to have a problem with abdominal pain post surgery. Pain has been described to be in the abdominal area, more of a colicky in nature 4 to 5/10 and no radiation. The patient felt nauseated. but no vomiting. His symptoms persisted and then on the weekend the patient noticed to be hallucinating, seeing people who were not around. There is no clear history of any fever while at home. With these symptoms, the patient was brought into the ER where the patient has been evaluated by the ER physician. On arrival to the ER, he was afebrile and subsequently did spike a fever 100.4, although the patient did have mildly elevated white count of 11.4, although his BUN and creatinine and kidney function remains to be normal. Urine was negative and urine drug screen positive for opiates. The patient did have a blood culture done and has been evaluated by the admitting team, as well as the surgery. The patient did have an abdominal x-ray that shows possible small bowel ileus. No free air and mild constipation. A CT of the abdomen and pelvis completed this morning that did show bowel wall thickening and leak of ascending and transverse colon compatible with colitis. No pericolonic abscess. A fat stranding along the the mesentery border of the transverse colon with surrounding fat stranding. This could relate to ventral hernia repair. The patient blood cultures came positive with gram-positive cocci. Vancomycin, Levaquin Flagyl was added. Infectious Disease was asked to evaluate for further recommendation regarding antibiotic therapy. REVIEW OF SYSTEMS: CONSTITUTIONAL: Positive for weakness and low-grade fever. EYES: No complaint. ENT: No complaint. RESPIRATORY: As per HPI. CARDIOVASCULAR: No complaint. GENITOURINARY: No complaint. GASTROINTESTINAL: As per HPI. MUSCULOSKELETAL: No complaint. INTEGUMENTARY: No complaint. PSYCHOLOGICAL: As per HPI. ENDOCRINE: No complaint. NEUROLOGIC: No complaint. PAST MEDICAL HISTORY: COPD, diabetes mellitus, hypertension. PAST SURGICAL HISTORY: Back surgery, laparoscopic robotic assisted repair of incarcerated ventral incisional hernia repair. SOCIAL HISTORY: Current smoker. No drinking or drug use. FAMILY HISTORY: No pertinent findings noticed. ALLERGIES: CODEINE, IODINE, LATEX, NITROUS OXIDE. MEDICATIONS: The patient is currently on Tylenol, DuoNeb, Zyloprim, Lipitor, Symbicort, Tums , Coreg, NovoLog, Toradol, Flagyl, vancomycin, Levaquin. EXAMINATION: Blood pressure is 154/72 with a pulse of 92, temperature 98.6. He is 95% on BiPAP. General description is an elderly male lying in bed in no distress. No tachypnea or accessory muscle of respiration use. HEENT EXAMINATION: No pallor or scleral icterus. Oral mucous membranes is dry. No pharyngeal erythema or thrush. NECK: Trachea central. No thyromegaly. LUNGS: Unlabored breathing, clear to auscultation anteriorly. HEART: S1, S2. Regular rate and rhythm. ABDOMEN: Soft, mildly distended. No guarding or rigidity. EXTREMITIES: No edema of the feet. SKIN EXAMINATION: No rash or mass palpable. NEUROLOGICAL: The patient is awake, alert, oriented x3. Mood and affect normal. LABS: Hemoglobin is 14.0, white count 9.3, BUN of 23, creatinine 0.64. Urine has been negative. Blood culture with gram-positive cocci. DIAGNOSTIC IMPRESSION AND PLAN: Patient admitted to the hospital with hallucinations and confusion. The patient recently did have a laparoscopic robotic assisted repair of the ventral incisional hernia with partial omentectomy now with low-grade fever of 100.4, mildly elevated white count on admission with abnormal CT suggestive of colitis with gram positive bacteremia , could be enterococcus. However, if turns out to be coagulase negative Staph, it would more likely point towards a skin contamination rather than abdominal claudia. PLAN: 1. Blood culture repeated to document clearance of bacteremia. 2. We will keep the patient on vancomycin till final ID of this pathogen however discontinue Levaquin and start the patient on Zosyn to cover for the possible enteric gram-negative pathogen responsible for this colitis. 3. We will follow up on the clinical condition and culture to further adjust medication. Thank you for this consultation. I will follow this patient along with you. MMODL / IJN: [id number] / KEYONNA
[2017-08-25] MEDS: KETOROLAC 30 MG/ML 1 ML VIAL IVP PRN ×4 (03:21→22:33)
[2017-08-25] MEDS: PIPERACILLIN-TAZOBACTAM 3.375 GM in DEXTROSE/WATER 1 50ML.BAG IVPB SCH ×3 (04:01→20:09)
[2017-08-25 06:19] LABS: Glucose,Whole Blood 142 mg/dL (75-99)
[2017-08-25] MEDS: INSULIN ASPART 100 UNIT/ML 1 ML 10 ML VIAL SQ SCH ×4 (06:32→22:00)
[2017-08-25] MEDS ORDERED: VANCOMYCIN TROUGH DUE 1 EACH MISC MISCELLANE ONE (08:00)
[2017-08-25 08:16] LABS: Basophils % (A) 0 %; Eosinophils # (A) 0.2 k/uL (0-0.7); Eosinophils % (A) 2 %; HCT 49.5 % (39.0-53.0); HGB 15.7 gm/dL (13.0-17.5); Lymphocytes # (A) 0.9 k/uL (1.0-4.8); Lymphocytes % (A) 8 %; MCH 30.8 pg (25.0-35.0); MCHC 31.8 g/dL (31.0-37.0); MCV 96.9 fL (80.0-100.0); Mean Platelet Volume 7.1; Monocytes # (A) 0.9 k/uL (0-1.0); Monocytes % (A) 8 %; Neutrophils # (A) 8.4 k/uL (1.3-7.7); Neutrophils % (A) 80 %; Platelet Count 218 k/uL (150-450); RBC 5.11 m/uL (4.30-5.90); RDW 12.8 % (11.5-15.5); WBC 10.5 k/uL (3.8-10.6)
[2017-08-25] MEDS: PANTOPRAZOLE 40 MG/10 ML VIAL IVP SCH ×2 (08:30→20:12)
[2017-08-25] MEDS: TAMSULOSIN 0.4 MG CAP.ER.24H PO SCH (08:31)
[2017-08-25] MEDS: ATORVASTATIN 40 MG TAB PO SCH (08:31)
[2017-08-25] MEDS: ALLOPURINOL 300 MG TAB PO SCH (08:31)
[2017-08-25] MEDS: metroNIDAZOLE-NS PMX 500 MG in SALINE 1 100ML.BAG IVPB SCH ×2 (08:39→15:33)
[2017-08-25 08:42] LABS: Blood Urea Nitrogen 30 mg/dL (9-20); Calcium 9.1 mg/dL (8.4-10.2); Chloride 97 mmol/L (98-107); Glucose 149 mg/dL (74-99); Potassium 3.2 mmol/L (3.5-5.1); Sodium 153 mmol/L (137-145)
[2017-08-25] MEDS: IPRATROPIUM-ALBUTEROL 3 ML NEB INHALATION SCH ×4 (08:42→19:56)
[2017-08-25] MEDS: VANCOMYCIN 2,000 MG in SODIUM CHLORIDE 0.9% 500 ML IVPB SCH (08:42)
[2017-08-25] MEDS: SYMBICORT 160-4.5 MCG INHALER INHALATION SCH ×2 (08:42→19:56)
[2017-08-25] MEDS: CARVEDILOL 12.5 MG TAB PO SCH ×2 (08:42→17:41)
[2017-08-25] MEDS ORDERED: ASPIRIN 81 MG PO SCH (09:00)
[2017-08-25 09:08] LABS: Anion Gap 14 mmol/L
[2017-08-25 09:09] LABS: Carbon Dioxide 42 mmol/L (22-30)
[2017-08-25 11:38] LABS: Glucose,Whole Blood 147 mg/dL (75-99)
--- NOTE | 2017-08-25 12:14 | P.PN ---
Subjective Progress Note Date: 08/25/17 Principal diagnosis: Acute on chronic hypoxic and hypercapnic respiratory failure with recent episode of hallucinations following repair of umbilical hernia. This 66-year-old male patient has COPD, chronic hypoxic and hypercapnic respiratory failure however has not had any adequate follow-up in terms of his pulmonary condition. He states that he has not been maintained on oxygen even. He smokes on a regular basis 1 pack of cigarettes a day. He underwent a recent abdominal wall hernia repair and he was discharged home on oxycodone. Surgery went fine and the patient did not have any immediate postoperative complications. The patient subsequently started developing some hallucination. He was able to see images of family members coming in visiting him and he had some auditory hallucinations. Denies having any chest pain. No cough or sputum production. No hemoptysis or pleurisy. No swelling lower extremities. No abdominal pain. Surgical wound site over the abdominal wall is dry clean and intact. No fever or chills. He came into the emergency room her chest x- ray was done and the blood gases was done. The chest x-ray reveals cardiomegaly along with some mild pulmonary vessel congestion and the blood gases showed a pH of 7.37 with a pCO2 of 63 and pO2 of 63 and this was on FiO2 of 28% consistent with chronic hypoxic and hypercapnic respiratory failure. He denies having any respiratory difficulties. No nausea vomiting or abdominal pain. No 70 psychiatric history. Most of depression perhistory of schizophrenia. He is diabetic. He also has history of BPH. He is obese. No 70 CPAP therapy at home. No 70 documented sleep breathing disorder. The patient's CPK is 1300. The troponin is a 0.02. Urinalysis negative. Urine drug screen is positive for opiates. EKG was showing sinus tachycardia type of admission with a heart rate of 125 and some nonspecific T-wave changes. The patient had a CAT scan of the brain was also negative. There is evidence of old lacunar infarct in the external capsule on the left and chronic white matter ischemic changes. On 08/23/2017 I'm seeing this patient for a follow-up. He is resting comfortably in bed. I was able to witness some apneas that was occurring while the patient was sleeping. It happened at a time when I came in to evaluate this patient and the patient was taken a nap and is obvious that the patient is having apneas. As such the patient has likely an underlying obstructive sleep apnea in addition to COPD contributing to his chronic hypercapnic respiratory failure. The patient also has chronic hypoxic respiratory failure. He was easily arousable. He does not have any hallucinations over the past 24 hours. He was having episodes of fever. He was also noted to have a run of atrial fibrillation which converted back to normal sinus rhythm. For that reason, cardiology was consulted and general surgery will be also evaluating the patient regarding his most recent hernia repair. There is some erythema over the anterior abdominal wall which raises the suspicion for an underlying abdominal wall cellulitis/infection. No drainage from the surgical wound site. Patient denies having any cough or sputum production. No chest pain. He is tolerating his diet. No nausea or vomiting. A lengthy discussion with the son who tells me that the patient has been in a poor health over the past 2 years. He has been sleeping a lot and he spends most of the time in bed and is been essentially sedentary. He is a chronic smoker. Probably chronic hypoxic yet he hasn't been using any form of respiratory medications are oxygen therapy. Cardiology will be also evaluating this patient today. His T-max was 100.4 Patient was reevaluated today on 08/24/2017, he is still on BiPAP, his ABG is acceptable with adequate metabolic compensation for his respiratory acidosis. Patient is complaining about his BiPAP, however I will try to intermittently use high flow nasal cannula alternating with BiPAP. Clinically, the patient does have COPD with chronic hypoxic and hypercapnic respiratory failure. Apparently this was not manifested clearly until his recent admission to the hospital following his hernia repair. Apparently he was having intermittent episodes of hallucinations post surgery. ABG on BiPAP today showed a pO2 of 68 pCO2 of 68 pH of 7.40. CBC was normal. Basic metabolic profile is normal with bicarb of 40 which is expected considering his chronic hypercapnic respiratory failure. The patient is seen again today 08/25/2017 in follow-up on the selective care unit. He is currently sitting up in bed. He is awake and alert in no acute distress. He has been wearing his BiPAP throughout the evening. Maintaining good O2 sat saturations in the upper 90s on 50% FiO2. Maintained on Symbicort and DuoNeb's. He's been afebrile. Computed tomography scan of the abdomen showed evidence of right colon colitis. Nasogastric tube is in place. Over 500 mls dark fluid out today thus far. He remains on metronidazole, Zosyn and vancomycin. Remains on IV Protonix. White count 10.5. Hemoglobin 15.7. Sodium 153. Bicarb 42. Creatinine 1.00 Objective - Vital Signs Vital signs: Vital Signs Temp 97.0 F L 08/25/17 08:00 Pulse 104 H 08/25/17 09:11 Resp 26 H 08/25/17 08:00 BP 158/72 08/25/17 08:00 Pulse Ox 97 08/25/17 08:00 Intake & Output 08/24/17 08/25/17 08/25/17 18:59 06:59 18:59 Intake Total 150 Output Total 2099 2350 450 Balance -2099450 Weight 124.5 kg Intake: Intake, IV Titration 150 Amount Piperacillin-Tazobactam 3 50 .375 gm In Dextrose/Water 1 50ml.bag @ 12.5 mls/hr IVPB Q8H WILLIAM Rx#: [id number] metroNIDAZOLE-NS PMX 500 100 mg In Saline 1 100ml.bag @ 100 mls/hr IVPB Q8HR WILLIAM Rx#:[id number] Output: Gastric Drainage 2099 2350 450 Other: Voiding Method Urinal Urinal Urinal # Voids 1 1 1 # Bowel Movements 2 1 1 - Exam Physical Exam: Revealed a 66-year-old white male in no distress, on BiPAP. Head: Atraumatic, normocephalic. Eyes: PERRLA, EOMI, no icterus. HEENT:[Neck is supple.] [No neck masses.] [No thyromegaly.] [No JVD.] Nasogastric tube is in place. Chest: [Diminished breath sounds at the bases, no crackles or rhonchi or wheezes , patient does have a barrel chest.] Cardiac Exam: [Normal S1 and S2, no S3 gallop, no murmur.] Abdomen: [Postsurgical, some redness noted in the periumbilical area, could be related to her cellulitis of the abdominal wall. No rebound, no guarding. As the bowel sounds. Extremities: [No clubbing, no edema, no cyanosis.] Neurological Exam: [No focal neurologic deficit.] Psychiatric: Normal mood affect and mental status examination. Lymphatics: No lymphadenopathy. - Labs CBC & Chem 7: 08/25/17 07:56 08/25/17 07:56 Labs: Abnormal Lab Results - Last 24 Hours (Table) 08/24/17 08/24/17 08/25/17 Range/Units 17:00 20:01 06:15 Neutrophils # (1.3-7.7) k/uL Lymphocytes # (1.0-4.8) k/uL Sodium (137-145) mmol/L Potassium (3.5-5.1) mmol/L Chloride (98-107) mmol/L Carbon Dioxide (22-30) mmol/L BUN (9-20) mg/dL Glucose (74-99) mg/dL POC Glucose (mg/dL) 143 H 145 H 142 H (75-99) mg/dL 08/25/17 08/25/17 08/25/17 Range/Units 07:56 07:56 11:37 Neutrophils # 8.4 H (1.3-7.7) k/uL Lymphocytes # 0.9 L (1.0-4.8) k/uL Sodium 153 H (137-145) mmol/L Potassium 3.2 L (3.5-5.1) mmol/L Chloride 97 L (98-107) mmol/L Carbon Dioxide 42 H* (22-30) mmol/L BUN 30 H (9-20) mg/dL Glucose 149 H (74-99) mg/dL POC Glucose (mg/dL) 147 H (75-99) mg/dL Microbiology - Last 24 Hours (Table) 08/22/17 21:50 Blood Culture - Preliminary Blood No Growth after 48 hours 08/22/17 21:22 Blood Culture Gram Stain - Preliminary Blood Blood Culture - Preliminary Coagulase Negative Staph Assessment and Plan Assessment: 1 Acute on chronic hypoxic and hypercapnic respiratory failure secondary to COPD 2 postoperative hallucination most likely secondary to metabolic encephalopathy with relative hypoxia and hypercapnia. Again that is acute on chronic. Fever could be another contributing factor to his hallucination. 3 episodic fever currently under investigation. Computed tomography scan of the abdomen revealed a right colon colitis. That is being addressed by surgery on the case. 4 lacunar stroke based on the CAT scan findings 5 umbilical hernia repair 6 smoker 7 hypertension 8 diabetes mellitus 9 paroxysmal atrial fibrillation, awaiting a cardiology evaluation 10 hypernatremia Recommendation: The patient was seen and evaluated by Dr. العراقي. We'll continue with the BiPAP as needed. Continue bronchodilators and Symbicort. The patient was found to have a right colon colitis. Nasogastric tube remains in place. He is currently on vancomycin, Zosyn and metronidazole. ID and surgical services on the case as well. We will continue to follow and make further recommendations based on his clinical status. I, the cosigning physician, performed a history & physical examination of the patient. Lungs sounds have crackles in the bilateral posterior bases more so on the right. Maintaining good O2 saturations in the 90s on 50% FiO2 per BiPAP. I discussed the assessment and plan of care with my nurse practitioner, Keri Villagran. I attest to the above note as dictated by her.
--- NOTE | 2017-08-25 15:20 | PN ---
PROGRESS NOTE DATE OF SERVICE: 08/25/2017. REASON FOR FOLLOWUP: Colitis. INTERVAL HISTORY: The patient is currently afebrile. He has been breathing comfortably. Denies having any chest pain. No nausea, vomiting. No significant abdominal pain or any diarrhea. EXAMINATION: Blood pressure 139/74, pulse of 89, temperature 97.3. He is 94% on BiPAP. General description is an elderly male lying in bed in no distress. RESPIRATORY SYSTEM: Unlabored breathing with decreased breath sounds at bases. No wheeze. HEART: S1, S2. Regular rate and rhythm. ABDOMEN: Soft, mildly distended. No guarding or rigidity. LABS: Hemoglobin is 15.7, white count 10.5, BUN of 30, creatinine 1.0. Blood culture with coagulase-negative Staph. DIAGNOSTIC IMPRESSION AND PLAN: 1. Patient positive blood culture with coagulase-negative Staph likely skin contamination, not an abdominal pathogen. Vancomycin discontinued. 2. Patient with evidence of colitis on CT with recent hernia repair x2. Currently covered with Zosyn which will be continued. We are now awaiting for his condition to stabilize. Family present at bedside. Their questions were answered. MMODL / IJN: [id number] /
[2017-08-25] MEDS: SODIUM CHLORIDE 0.45% 1,000 ML IV SCH (15:36)
--- NOTE | 2017-08-25 15:37 | P.PN ---
Subjective Progress Note Date: 08/25/17 The patient was sleeping comfortably, reports that he is having difficulty breathing today, with a good oxygen saturations in the mid to upper 90s. NG tube tube continues to be in place with output, denies any significant abdominal pain or nausea or vomiting. No acute events overnight afebrile, patient somnolent but arousable and more alert today Objective - Vital Signs Vital signs: Vital Signs Temp 97.3 F L 08/25/17 11:15 Pulse 101 H 08/25/17 12:24 Resp 20 08/25/17 13:00 BP 139/74 08/25/17 11:15 Pulse Ox 95 08/25/17 13:00 Intake & Output 08/24/17 08/25/17 08/25/17 18:59 06:59 18:59 Intake Total 150 Output Total 2100 2350 450 Balance -2099 -2199 -450 Weight 124.5 kg Intake: Intake, IV Titration 150 Amount Piperacillin-Tazobactam 3 50 .375 gm In Dextrose/Water 1 50ml.bag @ 12.5 mls/hr IVPB Q8H WILLIAM Rx#: [id number] metroNIDAZOLE-NS PMX 500 100 mg In Saline 1 100ml.bag @ 100 mls/hr IVPB Q8HR WILLIAM Rx#:[id number] Output: Gastric Drainage 2099 2350 450 Other: Voiding Method Urinal Urinal Urinal # Voids 1 1 1 # Bowel Movements 2 1 1 - Exam Constitutional: No acute distress, conversant, pleasant Eyes: Anicteric sclerae, moist conjunctiva, no lid-lag, PERRLA ENMT: NC/AT,Oropharynx clear, no erythema, exudates Neck:Supple, FROM, no masses, or JVD, No carotid bruits; No thyromegaly Lungs: Diminished with poor air movement diffusely, Clear to percussion, mild respiratory distress tachypneaic on BiPAP Cardiovascular: Heart regular in rate and rhythm, No murmurs, gallops, or rubs no peripheral edema Abdominal: Soft Nontender, nom distended, no guarding, no rebound or rigidity, Normoactive bowel sounds No hepatomegaly, No splenomegaly, No palpable mass No abdominal wall hernia noted Skin: Normal temperature, tone, texture, turgor, No induration No subcutaneous nodules, No rash, lesions, No ulcers Extremities:No digital cyanosis No clubbing, Pedal pulses intact and symmetrical Radial pulses intact and symmetrical Normal gait and station, No calf tenderness Psychiatric: Alert and oriented to person, place and time, Appropriate affect Intact judgement Neuro: Muscles Strength 5/5 in all 4 extremities, Sensation to light touch grossly present throughout, Cranial nerves II-XII grossly intact. No focal sensory deficits - Labs CBC & Chem 7: 08/25/17 07:56 08/25/17 07:56 Labs: Abnormal Lab Results - Last 24 Hours (Table) 08/24/17 08/24/17 08/25/17 Range/Units 17:00 20:01 06:15 Neutrophils # (1.3-7.7) k/uL Lymphocytes # (1.0-4.8) k/uL Sodium (137-145) mmol/L Potassium (3.5-5.1) mmol/L Chloride (98-107) mmol/L Carbon Dioxide (22-30) mmol/L BUN (9-20) mg/dL Glucose (74-99) mg/dL POC Glucose (mg/dL) 143 H 145 H 142 H (75-99) mg/dL 08/25/17 08/25/17 08/25/17 Range/Units 07:56 07:56 11:37 Neutrophils # 8.4 H (1.3-7.7) k/uL Lymphocytes # 0.9 L (1.0-4.8) k/uL Sodium 153 H (137-145) mmol/L Potassium 3.2 L (3.5-5.1) mmol/L Chloride 97 L (98-107) mmol/L Carbon Dioxide 42 H* (22-30) mmol/L BUN 30 H (9-20) mg/dL Glucose 149 H (74-99) mg/dL POC Glucose (mg/dL) 147 H (75-99) mg/dL Microbiology - Last 24 Hours (Table) 08/22/17 21:50 Blood Culture - Preliminary Blood No Growth after 48 hours 08/22/17 21:22 Blood Culture Gram Stain - Preliminary Blood Blood Culture - Preliminary Coagulase Negative Staph Assessment and Plan (1) Encephalopathy Narrative/Plan: * resolved likely multifactorial secondary chronic hypoxemic and hypercarbic respiratory failure superimposed on delirium triggered by ongoing hypoxia versus sepsis versus medication induced as patient was previously on narcotics hydrocodone postop * CT of the head only showing old lacunar infarct left external capsule with chronic white matter ischemic changes * Continue with antiplatelet therapy with aspirin 325 mg by mouth daily Current Visit: Yes Status: Acute Code(s): G93.40 - ENCEPHALOPATHY, UNSPECIFIED SNOMED Code(s): 16919850 (2) Chronic respiratory failure with hypoxia and hypercapnia Narrative/Plan: * Concern for worsening respiratory failure repeat ABG indicating ongoing hypoxemia and hypercapnia * Continue BiPAP per pulmonary recommendations currently on BiPAP settings 15/5 and FiO2 of 50% rate of 14 with good oxygen saturations in the mid to upper 90s / pulmonology Dr. العراقي following * Ejection fraction 50-55% Current Visit: Yes Status: Acute Code(s): J96.11 - CHRONIC RESPIRATORY FAILURE WITH HYPOXIA; J96.12 - CHRONIC RESPIRATORY FAILURE WITH HYPERCAPNIA SNOMED Code(s): 96468815 (3) Sepsis Narrative/Plan: * Normal white blood cell count with ongoing fevers * CT abdomen and pelvis suggestive of colitis in the ascending and transverse colon on * Appreciate ID recommendations by Dr. Mccullough, Levaquin discontinued continue with Zosyn and Flagyl and vancomycin * Preliminary culture suggestive of a coagulase-negative staph which is likely contaminant * Gen. surgery are already seen the patient and plans conservative management, will appreciate any further recommendations Current Visit: Yes Status: Acute Code(s): A41.9 - SEPSIS, UNSPECIFIED ORGANISM SNOMED Code(s): 35936077 (4) Infective colitis Narrative/Plan: * Treatment as above Current Visit: Yes Status: Acute Code(s): A09 - INFECTIOUS GASTROENTERITIS AND COLITIS, UNSPECIFIED SNOMED Code(s): 31046337 (5) Type 2 diabetes mellitus with hyperglycemia Narrative/Plan: * Continue to monitor blood sugars they are elevated continue correctional scale regimen * A1c is 7.4 Current Visit: Yes Status: Acute Code(s): E11.65 - TYPE 2 DIABETES MELLITUS WITH HYPERGLYCEMIA SNOMED Code(s): 266361687815592 (6) Electrolyte abnormality Narrative/Plan: * Hypernatremia at 153 start half-normal saline at 100 mL an hour * Hypokalemia at 3.2 replace with 40 mEq IV of potassium * Continue to monitor electrolytes Current Visit: Yes Status: Acute Code(s): E87.8 - OTH DISORDERS OF ELECTROLYTE AND FLUID BALANCE, NEC SNOMED Code(s): 259428368 Plan: Patient initiated on DVT prophylaxis with SCDs and Lovenox
--- NOTE | 2017-08-25 15:57 | P.PN ---
Subjective Progress Note Date: 08/25/17 This is a 66-year-old gentleman admitted to the hospital with mental status changes. He recently underwent herniography and came back with hallucinations. Patient has known history of chronic tobacco use, hypertension, hyperlipidemia , diabetes, home O2, severe COPD, sleep apnea. Patient did have an episode of atrial fibrillation and converted back to normal sinus rhythm. This morning and 18 was called on the patient, he was quite hypoxic and short of breath. Through the night last night, patient also had a loss of bowel sounds and was having diarrhea for this reason an NG tube had been placed. At the time of our examination later in the morning, blood pressure 170/80 with a heart rate in the 90s, 93% on 4 L of oxygen. Patient has been initiated on Xarelto 20 mg daily, we will discontinue the full aspirin that he is on. A cardiogram with Doppler study was performed which revealed an ejection fraction of 50-55%. Patient was also running low-grade fevers through the night and this morning. A computed tomography scan of the abdomen was performed which revealed some bowel wall thickening with ascending and transverse colon compatible with colitis. Fat attenuated stricture along the antimesenteric border of the transverse colon with surrounding inflammatory fat stranding this could relate to omental infarct or appendicitis. Small right pleural effusion also noted. 08/25/2017 Patient seen and examined this morning, remaining in normal sinus rhythm. 95% on 5 L of oxygen today. Blood pressure 138/70, heart rate in the 80s. Sodium 153, potassium 3.2, BUN 30, creatinine 1.0. Objective - Vital Signs Vital signs: Vital Signs Temp 97.3 F L 08/25/17 11:15 Pulse 101 H 08/25/17 12:24 Resp 20 08/25/17 13:00 BP 139/74 08/25/17 11:15 Pulse Ox 95 08/25/17 13:00 Intake & Output 08/24/17 08/25/17 08/25/17 18:59 06:59 18:59 Intake Total 150 Output Total 20990 450 Balance -2099 -450 Weight 124.5 kg Intake: Intake, IV Titration 150 Amount Piperacillin-Tazobactam 3 50 .375 gm In Dextrose/Water 1 50ml.bag @ 12.5 mls/hr IVPB Q8H [facility] Rx#: [id number] metroNIDAZOLE-NS PMX 500 100 mg In Saline 1 100ml.bag @ 100 mls/hr IVPB Q8HR [facility] Rx#:[id number] Output: Gastric Drainage 2100 2350 450 Other: Voiding Method Urinal Urinal Urinal # Voids 1 1 1 # Bowel Movements 2 1 1 - Exam PHYSICAL EXAMINATION: HEENT: Head is atraumatic, normocephalic. Pupils equal, round. Neck is supple. There is no elevated jugular venous pressure. NG tube in place. HEART EXAMINATION: Heart S1, S2 normal. No murmur or gallop heard. CHEST EXAMINATION: Lungs reveal diminished breath sounds to the bases, patient does have a barrel chest ABDOMEN: Soft, nontender. Bowel sounds are heard. No organomegaly noted. EXTREMITIES: 2+ peripheral pulses with no evidence of peripheral edema and no calf tenderness noted. NEUROLOGIC patient is awake, alert and oriented -3. . - Labs CBC & Chem 7: 08/25/17 07:56 08/25/17 07:56 Labs: Abnormal Lab Results - Last 24 Hours (Table) 08/24/17 08/24/17 08/25/17 Range/Units 17:00 20:01 06:15 Neutrophils # (1.3-7.7) k/uL Lymphocytes # (1.0-4.8) k/uL Sodium (137-145) mmol/L Potassium (3.5-5.1) mmol/L Chloride (98-107) mmol/L Carbon Dioxide (22-30) mmol/L BUN (9-20) mg/dL Glucose (74-99) mg/dL POC Glucose (mg/dL) 143 H 145 H 142 H (75-99) mg/dL 08/25/17 08/25/17 08/25/17 Range/Units 07:56 07:56 11:37 Neutrophils # 8.4 H (1.3-7.7) k/uL Lymphocytes # 0.9 L (1.0-4.8) k/uL Sodium 153 H (137-145) mmol/L Potassium 3.2 L (3.5-5.1) mmol/L Chloride 97 L (98-107) mmol/L Carbon Dioxide 42 H* (22-30) mmol/L BUN 30 H (9-20) mg/dL Glucose 149 H (74-99) mg/dL POC Glucose (mg/dL) 147 H (75-99) mg/dL Microbiology - Last 24 Hours (Table) 08/22/17 21:50 Blood Culture - Preliminary Blood No Growth after 48 hours 08/22/17 21:22 Blood Culture Gram Stain - Preliminary Blood Blood Culture - Preliminary Coagulase Negative Staph Assessment and Plan Plan: Assessment and plan i #1 mental status changes, could be secondary to chronic hypoxemia and hypercapnia #2 paroxysmal atrial fibrillation #3 status post recent herniorrhaphy #4 hypertension # 5 hyperlipidemia #6 diabetes #7 COPD #8 sleep apnea #9 fever, rule out abdominal wall infection. #10 infective colitis Plan Echocardiogram with Doppler study revealed an ejection fraction of 50-55%. Patient will need to be resumed on oral anticoagulation when she is able to take tube remains in place. DNP note has been reviewed, I agree with a documented findings and plan of care. Patient was seen and examined.
[2017-08-25] MEDS: POTASSIUM CHLORIDE 20 MEQ in WATER FOR INJECTION 1 100ML.BAG IVPB SCH ×2 (16:33→20:11)
[2017-08-25] MEDS: ENOXAPARIN 40 MG/0.4 ML SYRINGE SQ SCH (16:34)
[2017-08-25 16:39] LABS: Glucose,Whole Blood 210 mg/dL (75-99)
[2017-08-25 21:11] LABS: Glucose,Whole Blood 165 mg/dL (75-99)
[2017-08-26] MEDS: metroNIDAZOLE-NS PMX 500 MG in SALINE 1 100ML.BAG IVPB SCH ×2 (01:27→08:53)
[2017-08-26] MEDS: SODIUM CHLORIDE 0.45% 1,000 ML IV SCH (01:28)
[2017-08-26] MEDS: PIPERACILLIN-TAZOBACTAM 3.375 GM in DEXTROSE/WATER 1 50ML.BAG IVPB SCH (02:31)
[2017-08-26] MEDS: ACETAMINOPHEN TAB 325 MG TAB PO PRN ×2 (02:33→12:16)
[2017-08-26 06:30] LABS: Glucose,Whole Blood 141 mg/dL (75-99)
[2017-08-26] MEDS: KETOROLAC 30 MG/ML 1 ML VIAL IVP PRN (06:52)
[2017-08-26] MEDS: CARVEDILOL 12.5 MG TAB PO SCH ×2 (06:59→17:07)
[2017-08-26] MEDS: INSULIN ASPART 100 UNIT/ML 1 ML 10 ML VIAL SQ SCH ×4 (06:59→22:20)
[2017-08-26 07:14] LABS: Calcium 8.6 mg/dL (8.4-10.2); Magnesium 1.7 mg/dL (1.6-2.3); Potassium 3.6 mmol/L (3.5-5.1); Total Bilirubin 0.7 mg/dL (0.2-1.3); Total Protein 5.2 g/dL (6.3-8.2)
[2017-08-26] MEDS ORDERED: VANCOMYCIN 2,000 MG in SODIUM CHLORIDE 0.9% 500 ML IVPB SCH (08:00)
[2017-08-26] MEDS: SYMBICORT 160-4.5 MCG INHALER INHALATION SCH ×2 (08:28→19:49)
[2017-08-26] MEDS: IPRATROPIUM-ALBUTEROL 3 ML NEB INHALATION SCH ×4 (08:29→19:49)
--- NOTE | 2017-08-26 08:54 | P.PN ---
Progress Note - Text Progress Note Date: 08/25/17 the patient resting comfortably in his bed. He denies any abdominal pain. He states he's had some flatus. On exam his vital signs are stable. His abdomen is soft and nontender. It is no rebound or guarding. There is no significant tenderness. The patient's ileus is resolving. The patient will have his nasogastric tube removed. He will start a clear liquid diet.
[2017-08-26] MEDS: PANTOPRAZOLE 40 MG/10 ML VIAL IVP SCH ×2 (08:57→20:39)
[2017-08-26] MEDS: ENOXAPARIN 40 MG/0.4 ML SYRINGE SQ SCH (08:57)
[2017-08-26] MEDS: ATORVASTATIN 40 MG TAB PO SCH (08:57)
[2017-08-26] MEDS: ALLOPURINOL 300 MG TAB PO SCH (08:57)
[2017-08-26] MEDS: TAMSULOSIN 0.4 MG CAP.ER.24H PO SCH (08:57)
[2017-08-26] MEDS ORDERED: POTASSIUM CHLORIDE ER 20 MEQ TAB.ER PO STA (11:19)
--- NOTE | 2017-08-26 11:21 | P.NPCON ---
History of Present Illness - Reason for Consult acute renal failure - History of Present Illness Reason for consultation: Acute kidney injury History of present illness: Patient is a 66-year-old male seen in renal consultation for acute kidney injury. Patient has no prior history of kidney disease and creatinine was 0.8 on admission. Today it is up to 2.3. Patient had a hernia repair surgery done on August 19. He was noted to be confused at home by his family and was hallucinating and was subsequently brought to the hospital. Patient was noted to be in acute hypercapnic respiratory failure and was put on a BiPAP. His mentation subsequently improved. He is currently sitting up in bed. He is wearing a nasal cannula. Denies any active chest pain or shortness of breath. Patient underwent a CAT scan of the abdomen this admission without contrast which revealed left kidney atrophy without any hydronephrosis. There is also concern for colitis and is currently maintained on antibiotics per infectious disease recommendations. He also had an ileus for which she had a NG tube placed and subsequently removed yesterday. He's now on a clear liquid diet and is tolerating it well. He denies any abdominal pain. He was having diarrhea which has improved. He was receiving IV Toradol which was discontinued this morning. Additionally he also received IV vancomycin which was also discontinued yesterday. He denies regular use of NSAIDs. He denies any family history of kidney disease. His sodium level was 153 yesterday and is down to 143 today. He is currently maintained on half normal saline running at 100 mL an hour. He does have history of diastolic CHF. One set of his blood cultures was positive for staph epi with subsequent cultures negative. Vital signs are stable. General: The patient appeared well nourished and normally developed. HEENT: Head exam is unremarkable. Neck is without jugular venous distension. LUNGS: Lungs are clear to auscultation and percussion. Breath sounds decreased. HEART: Rate and Rhythm are regular. First and second heart sounds normal. No murmurs, rubs or gallops. ABDOMEN: Abdominal exam reveals normal bowel sounds. Non-tender and non- distended. No evidence of peritonitis. EXTREMITITES: No clubbing, cyanosis, or edema. Past Medical History Past Medical History: COPD, Diabetes Mellitus, Hypertension History of Any Multi-Drug Resistant Organisms: None Reported Past Surgical History: Back Surgery, Hernia Repair, Joint Replacement, Orthopedic Surgery Past Anesthesia/Blood Transfusion Reactions: No Reported Reaction Past Psychological History: No Psychological Hx Reported Smoking Status: Current every day smoker Past Alcohol Use History: None Reported Past Drug Use History: None Reported - Past Family History Father Family Medical History: GERD/Reflux Medications and Allergies Home Medications Medication Instructions Recorded Confirmed Type Albuterol Inhaler [Ventolin Hfa 3 puff INHALATION RT-BID PRN 08/11/17 08/22/17 History Inhaler] Allopurinol [Zyloprim] 300 mg PO DAILY 08/11/17 08/22/17 History Aspirin [Adult Low Dose Aspirin EC] 81 mg PO DAILY 08/11/17 08/22/17 History Carvedilol 25 mg PO BID 08/11/17 08/22/17 History Fluticasone/Vilanterol [Breo 1 puff INHALATION RT-DAILY 08/11/17 08/22/17 History Ellipta 200-25 Mcg INH] Furosemide [Lasix] 40 mg PO DAILY 08/11/17 08/22/17 History Insulin Detemir [Levemir] 30 unit SQ DAILY 08/11/17 08/22/17 History Lisinopril 30 mg PO DAILY 08/11/17 08/22/17 History [place]-3 Fatty Acids/Fish Oil [Fish 1 cap PO DAILY 08/11/17 08/22/17 History Oil 1,000 mg Softgel] Tamsulosin [Flomax] 0.4 mg PO DAILY 08/11/17 08/22/17 History glipiZIDE [Glucotrol] 10 mg PO AC-BID 08/11/17 08/22/17 History metFORMIN HCL 1,000 mg PO BID PRN 08/11/17 08/22/17 History Docusate [Colace] 100 mg PO BID #20 capsule 08/19/17 08/22/17 Rx Albuterol Nebulized [Ventolin 2.5 mg INHALATION RT-QID PRN 08/22/17 08/22/17 History Nebulized] HYDROcodone/APAP 7.5-325MG [[place] 1 tab PO Q4H PRN 08/22/17 08/22/17 History 7.5] Multivitamins, Thera [Multivitamin 1 tab PO DAILY 08/22/17 08/22/17 History (formulary)] Oxymetazoline 0.05% Nasl [place] 3 spray EA NOSTRIL TID PRN 08/22/17 08/22/17 History [Afrin 0.05% Nasal [place]] Allergies Allergy/AdvReac Type Severity Reaction Status Date / Time codeine Allergy Unknown Verified 08/22/17 11:39 iodine Allergy "i could Verified 08/22/17 11:39 not move for 3 weeks" latex Allergy Rash/Hives/ Verified 08/22/17 11:39 blisters nitrous oxide Allergy Vomiting Verified 08/22/17 11:39 Physical Exam Vitals: Vital Signs Temp Pulse Pulse Resp BP Pulse Ox 08/26/17 08:42 84 08/26/17 08:29 84 08/26/17 04:00 98.3 F 74 19 127/66 97 08/26/17 00:00 98.2 F 77 18 130/62 96 08/25/17 20:08 78 08/25/17 20:00 97.7 F 81 19 136/67 95 08/25/17 19:56 78 08/25/17 17:02 98 08/25/17 16:53 100 95 08/25/17 15:15 96.2 F L 91 20 146/71 94 L 08/25/17 13:00 20 95 08/25/17 12:24 101 H 26 H 08/25/17 12:12 98 23 98 08/25/17 11:15 97.3 F L 89 20 139/74 94 L Intake and Output 08/25/17 08/26/17 08/26/17 22:59 06:59 14:59 Intake Total 125 770 100 Balance 125 770 100 Intake: Intake, IV Titration 650 Amount Piperacillin-Tazobactam 3 50 .375 gm In Dextrose/Water 1 50ml.bag @ 12.5 mls/hr IVPB Q8H [facility] Rx#: [id number] Potassium Chloride 20 meq 100 In Water For Injection 1 100ml.bag @ 50 mls/hr IVPB Q2HR [facility] Rx#: [id number] Sodium Chloride 0.45% 1, 400 000 ml @ 100 mls/hr IV . Q10H [facility] Rx#:[id number] metroNIDAZOLE-NS PMX 500 100 mg In Saline 1 100ml.bag @ 100 mls/hr IVPB Q8HR [facility] Rx#:[id number] Oral 125 120 100 Other: Voiding Method Urinal Urinal # Voids 1 2 # Bowel Movements 1 1 Weight 126.9 kg Results - Lab Results Most recent lab results ABG pH 7.40 (7.35-7.45) 08/24/17 11:40 ABG pCO2 68 mmHg (35-45) H 08/24/17 11:40 ABG pO2 68 mmHg (83-108) L 08/24/17 11:40 ABG HCO3 42 mmol/L (21-25) H* 08/24/17 11:40 ABG O2 Saturation 93.8 % (94-97) L 08/24/17 11:40 Calcium 8.6 mg/dL (8.4-10.2) 08/26/17 05:57 Magnesium 1.7 mg/dL (1.6-2.3) 08/26/17 05:57 08/25/17 07:56 08/26/17 05:57 Assessment and Plan Plan: Assessment: #1. Nonoliguric acute kidney injury secondary to ATN secondary to nonsteroidals and vancomycin use. Rule out urinary retention. Urinalysis is quite benign. No evidence of hydronephrosis noted on CAT scan. He does have left kidney atrophy. #2. Colitis maintained on antibiotics per infectious disease recommendations. #3. Ileus. Currently on a clear liquid diet. Surgery following. #4. Hypernatremia secondary to lack of oral water intake. Improved with hypotonic fluid infusion. #5. Hypokalemia due to poor oral intake and metabolic alkalosis status post replacement. Improved. Magnesium and replete. #6. Acute hypercapnic respiratory failure. Improved. #7. Insulin-dependent diabetes mellitus. #8. History of diastolic CHF. Currently compensated. #9. History of BPH maintained on Flomax. #10. Metabolic alkalosis. Partially compensate for underlying respiratory acidosis. Further worsened from hydrogen losses from NG suction. Plan: I will change IV fluids to normal saline at 60 mL an hour. Advance diet per surgical recommendations. Check vancomycin level stat. Avoid nephrotoxic agents and hypotensive episodes. Toradol and vancomycin has been discontinued. Check postvoid residual to rule out underlying urinary retention. Replace potassium. 40 mEq today. Repeat electrolytes in the morning. Thank you for the consultation. I will continue to follow the patient with you during his hospital stay.
[2017-08-26] MEDS ORDERED: MAGNESIUM SULFATE-D5W PMX 1 GM in DEXTROSE/WATER 1 100ML.BAG IVPB ONE (11:30)
--- NOTE | 2017-08-26 11:49 | P.PN ---
Subjective Progress Note Date: 08/26/17 The patient is feeling much better today, he is up sitting beside his bed, with his daughter present. Does report approximately 4-5 episodes of watery diarrhea since yesterday, denies any subjective fevers or chills. Reports that his breathing is much better currently on nasal cannula at present with a good oxygen saturations and unlabored respirations. Patient does not recall the stated ALLERGY to iodine, despite it being listed on his ALLERGY list. He has been doing well with clear liquid diet without any nausea or abdominal pain. Otherwise no acute events overnight Objective - Vital Signs Vital signs: Vital Signs Temp 98.0 F 08/26/17 08:50 Pulse 84 08/26/17 08:50 Resp 18 08/26/17 08:50 BP 156/76 08/26/17 08:50 Pulse Ox 93 L 08/26/17 08:50 Intake & Output 08/25/17 08/26/17 08/26/17 18:59 06:59 18:59 Intake Total 125 770 100 Output Total 450 Balance -325 770 100 Weight 126.9 kg Intake: Intake, IV Titration 650 Amount Piperacillin-Tazobactam 3 50 .375 gm In Dextrose/Water 1 50ml.bag @ 12.5 mls/hr IVPB Q8H [facility] Rx#: [id number] Potassium Chloride 20 meq 100 In Water For Injection 1 100ml.bag @ 50 mls/hr IVPB Q2HR [facility] Rx#: [id number] Sodium Chloride 0.45% 1, 400 000 ml @ 100 mls/hr IV . Q10H [facility] Rx#:[id number] metroNIDAZOLE-NS PMX 500 100 mg In Saline 1 100ml.bag @ 100 mls/hr IVPB Q8HR [facility] Rx#:[id number] Oral 125 120 100 Output: Gastric Drainage 450 Other: Voiding Method Urinal Urinal Urinal # Voids 1 2 # Bowel Movements 1 1 - Exam Constitutional: No acute distress, conversant, pleasant Eyes: Anicteric sclerae, moist conjunctiva, no lid-lag, PERRLA ENMT: NC/AT,Oropharynx clear, no erythema, exudates Neck:Supple, FROM, no masses, or JVD, No carotid bruits; No thyromegaly Lungs: Diminished with poor air movement diffusely, Clear to percussion, mild respiratory distress tachypneaic on BiPAP Cardiovascular: Heart regular in rate and rhythm, No murmurs, gallops, or rubs no peripheral edema Abdominal: Soft Nontender, nom distended, no guarding, no rebound or rigidity, Normoactive bowel sounds No hepatomegaly, No splenomegaly, No palpable mass No abdominal wall hernia noted Skin: Normal temperature, tone, texture, turgor, No induration No subcutaneous nodules, No rash, lesions, No ulcers Extremities:No digital cyanosis No clubbing, Pedal pulses intact and symmetrical Radial pulses intact and symmetrical Normal gait and station, No calf tenderness Psychiatric: Alert and oriented to person, place and time, Appropriate affect Intact judgement Neuro: Muscles Strength 5/5 in all 4 extremities, Sensation to light touch grossly present throughout, Cranial nerves II-XII grossly intact. No focal sensory deficits - Labs CBC & Chem 7: 08/25/17 07:56 08/26/17 05:57 Labs: Abnormal Lab Results - Last 24 Hours (Table) 08/25/17 08/25/17 08/25/17 Range/Units 11:37 16:37 21:10 Chloride (98-107) mmol/L Carbon Dioxide (22-30) mmol/L BUN (9-20) mg/dL Creatinine (0.66-1.25) mg/dL Glucose (74-99) mg/dL POC Glucose (mg/dL) 147 H 210 H 165 H (75-99) mg/dL Alkaline Phosphatase (38-126) U/L Total Protein (6.3-8.2) g/dL Albumin (3.5-5.0) g/dL 08/26/17 08/26/17 Range/Units 05:57 06:21 Chloride 92 L (98-107) mmol/L Carbon Dioxide 38 H (22-30) mmol/L BUN 38 H (9-20) mg/dL Creatinine 2.31 H (0.66-1.25) mg/dL Glucose 130 H (74-99) mg/dL POC Glucose (mg/dL) 141 H (75-99) mg/dL Alkaline Phosphatase 139 H (38-126) U/L Total Protein 5.2 L (6.3-8.2) g/dL Albumin 3.0 L (3.5-5.0) g/dL Microbiology - Last 24 Hours (Table) 08/22/17 21:50 Blood Culture - Preliminary Blood No Growth after 72 hours 08/22/17 21:22 Blood Culture Gram Stain - Final Blood Blood Culture - Final Staphylococcus epidermidis Assessment and Plan (1) Acute kidney injury Narrative/Plan: * Patient had a dramatic increase his creatinine from 1.0-2.3 * Likely secondary to contrast-induced nephropathy versus medication induced nephropathy as a patient did receive contrast prior to his CT abdomen and pelvis there appears a patient does have a documented ALLERGY to iodine. Patient did receive 3 doses of vancomycin with trough level at 19 yesterday and also received ongoing IV Toradol for pain (both have since been discontinued) * We'll consult nephrology for further recommendations. * Continue to avoid nephrotoxic agents * We'll continue hypotonic solution 1/2 NS at 100 mL an hour Current Visit: Yes Status: Acute Code(s): N17.9 - ACUTE KIDNEY FAILURE, UNSPECIFIED SNOMED Code(s): 43182490 (2) Encephalopathy Narrative/Plan: * resolved likely multifactorial secondary chronic hypoxemic and hypercarbic respiratory failure superimposed on delirium triggered by ongoing hypoxia versus sepsis versus medication induced as patient was previously on narcotics hydrocodone postop * CT of the head only showing old lacunar infarct left external capsule with chronic white matter ischemic changes * Continue with antiplatelet therapy with aspirin 325 mg by mouth daily Current Visit: Yes Status: Resolved Code(s): G93.40 - ENCEPHALOPATHY, UNSPECIFIED SNOMED Code(s): 58879260 (3) Chronic respiratory failure with hypoxia and hypercapnia Narrative/Plan: * Patient requiring decreasing oxygen requirements was stopped off BiPAP and is now on nasal cannula today * Continue on nasal cannula, patient scheduled to have evaluation for home BiPAP with overnight polysomnogram per pulmonary recommendations * Ejection fraction 50-55% on echocardiogram Current Visit: Yes Status: Chronic Code(s): J96.11 - CHRONIC RESPIRATORY FAILURE WITH HYPOXIA; J96.12 - CHRONIC RESPIRATORY FAILURE WITH HYPERCAPNIA SNOMED Code(s): 38007807 (4) Sepsis Narrative/Plan: * Normal white blood cell count with ongoing fevers * CT abdomen and pelvis suggestive of colitis in the ascending and transverse colon on * Appreciate ID recommendations by Dr. Mccullough, Levaquin discontinued continue with Zosyn and Flagyl and vancomycin * Preliminary culture suggestive of a coagulase-negative staph which is likely contaminant * Gen. surgery are already seen the patient and plans conservative management, will appreciate any further recommendations Current Visit: Yes Status: Acute Code(s): A41.9 - SEPSIS, UNSPECIFIED ORGANISM SNOMED Code(s): 97773294 (5) Infective colitis Narrative/Plan: * Treatment as above Current Visit: Yes Status: Acute Code(s): A09 - INFECTIOUS GASTROENTERITIS AND COLITIS, UNSPECIFIED SNOMED Code(s): 74134664 (6) Type 2 diabetes mellitus with hyperglycemia Narrative/Plan: * Continue to monitor blood sugars they are elevated continue correctional scale regimen * A1c is 7.4 Current Visit: Yes Status: Acute Code(s): E11.65 - TYPE 2 DIABETES MELLITUS WITH HYPERGLYCEMIA SNOMED Code(s): 025459419530498 (7) Ileus Narrative/Plan: * Likely resolving, patient on clear liquid diet and tolerating it well * Likely need to be advanced to a diabetic diet later today Current Visit: Yes Status: Acute Code(s): K56.7 - ILEUS, UNSPECIFIED SNOMED Code(s): 001376971 Plan: Disposition * Patient's respiratory status improving, however now with acute kidney injury will continue to follow consultants recommendations possible discharge in 2-3 days
[2017-08-26] MEDS: CIPROFLOXACIN HCL 500 MG TAB PO SCH ×2 (12:13→20:40)
--- NOTE | 2017-08-26 12:15 | P.PN ---
Subjective Progress Note Date: 08/26/17 Principal diagnosis: Acute on chronic hypoxic and hypercapnic respiratory failure following repair of umbilical hernia secondary to underlying COPD and obstructive sleep apnea syndrome. This 66-year-old male patient has COPD, chronic hypoxic and hypercapnic respiratory failure however has not had any adequate follow-up in terms of his pulmonary condition. He states that he has not been maintained on oxygen even. He smokes on a regular basis 1 pack of cigarettes a day. He underwent a recent abdominal wall hernia repair and he was discharged home on oxycodone. Surgery went fine and the patient did not have any immediate postoperative complications. The patient subsequently started developing some hallucination. He was able to see images of family members coming in visiting him and he had some auditory hallucinations. Denies having any chest pain. No cough or sputum production. No hemoptysis or pleurisy. No swelling lower extremities. No abdominal pain. Surgical wound site over the abdominal wall is dry clean and intact. No fever or chills. He came into the emergency room her chest x- ray was done and the blood gases was done. The chest x-ray reveals cardiomegaly along with some mild pulmonary vessel congestion and the blood gases showed a pH of 7.37 with a pCO2 of 63 and pO2 of 63 and this was on FiO2 of 28% consistent with chronic hypoxic and hypercapnic respiratory failure. He denies having any respiratory difficulties. No nausea vomiting or abdominal pain. No 70 psychiatric history. Most of depression perhistory of schizophrenia. He is diabetic. He also has history of BPH. He is obese. No 70 CPAP therapy at home. No 70 documented sleep breathing disorder. The patient's CPK is 1300. The troponin is a 0.02. Urinalysis negative. Urine drug screen is positive for opiates. EKG was showing sinus tachycardia type of admission with a heart rate of 125 and some nonspecific T-wave changes. The patient had a CAT scan of the brain was also negative. There is evidence of old lacunar infarct in the external capsule on the left and chronic white matter ischemic changes. On 08/23/2017 I'm seeing this patient for a follow-up. He is resting comfortably in bed. I was able to witness some apneas that was occurring while the patient was sleeping. It happened at a time when I came in to evaluate this patient and the patient was taken a nap and is obvious that the patient is having apneas. As such the patient has likely an underlying obstructive sleep apnea in addition to COPD contributing to his chronic hypercapnic respiratory failure. The patient also has chronic hypoxic respiratory failure. He was easily arousable. He does not have any hallucinations over the past 24 hours. He was having episodes of fever. He was also noted to have a run of atrial fibrillation which converted back to normal sinus rhythm. For that reason, cardiology was consulted and general surgery will be also evaluating the patient regarding his most recent hernia repair. There is some erythema over the anterior abdominal wall which raises the suspicion for an underlying abdominal wall cellulitis/infection. No drainage from the surgical wound site. Patient denies having any cough or sputum production. No chest pain. He is tolerating his diet. No nausea or vomiting. A lengthy discussion with the son who tells me that the patient has been in a poor health over the past 2 years. He has been sleeping a lot and he spends most of the time in bed and is been essentially sedentary. He is a chronic smoker. Probably chronic hypoxic yet he hasn't been using any form of respiratory medications are oxygen therapy. Cardiology will be also evaluating this patient today. His T-max was 100.4 Patient was reevaluated today on 08/24/2017, he is still on BiPAP, his ABG is acceptable with adequate metabolic compensation for his respiratory acidosis. Patient is complaining about his BiPAP, however I will try to intermittently use high flow nasal cannula alternating with BiPAP. Clinically, the patient does have COPD with chronic hypoxic and hypercapnic respiratory failure. Apparently this was not manifested clearly until his recent admission to the hospital following his hernia repair. Apparently he was having intermittent episodes of hallucinations post surgery. ABG on BiPAP today showed a pO2 of 68 pCO2 of 68 pH of 7.40. CBC was normal. Basic metabolic profile is normal with bicarb of 40 which is expected considering his chronic hypercapnic respiratory failure. The patient is seen again today 08/25/2017 in follow-up on the selective care unit. He is currently sitting up in bed. He is awake and alert in no acute distress. He has been wearing his BiPAP throughout the evening. Maintaining good O2 sat saturations in the upper 90s on 50% FiO2. Maintained on Symbicort and DuoNeb's. He's been afebrile. Computed tomography scan of the abdomen showed evidence of right colon colitis. Nasogastric tube is in place. Over 500 mls dark fluid out today thus far. He remains on metronidazole, Zosyn and vancomycin. Remains on IV Protonix. White count 10.5. Hemoglobin 15.7. Sodium 153. Bicarb 42. Creatinine 1.00 Reevaluated today on 08/26/2017, patient seems to be doing much better, he is asymptomatic, has been using his BiPAP at night, and has been doing great with the BiPAP. We'll try if we could qualify the patient for BiPAP at home. Otherwise he may require a sleep study on outpatient basis to get him qualified for BiPAP. In the meantime he is maintained on bronchodilators. He did develop hypernatremia secondary to free water deficit, and that is being addressed by nephrology. Objective - Vital Signs Vital signs: Vital Signs Temp 98.0 F 08/26/17 08:50 Pulse 80 08/26/17 12:03 Resp 18 08/26/17 08:50 BP 156/76 08/26/17 08:50 Pulse Ox 93 L 08/26/17 08:50 Intake & Output 08/25/17 08/26/17 08/26/17 18:59 06:59 18:59 Intake Total 125 770 100 Output Total 450 Balance -325 770 100 Weight 126.9 kg Intake: Intake, IV Titration 650 Amount Piperacillin-Tazobactam 3 50 .375 gm In Dextrose/Water 1 50ml.bag @ 12.5 mls/hr IVPB Q8H [facility] Rx#: [id number] Potassium Chloride 20 meq 100 In Water For Injection 1 100ml.bag @ 50 mls/hr IVPB Q2HR [facility] Rx#: [id number] Sodium Chloride 0.45% 1, 400 000 ml @ 100 mls/hr IV . Q10H [facility] Rx#:[id number] metroNIDAZOLE-NS PMX 500 100 mg In Saline 1 100ml.bag @ 100 mls/hr IVPB Q8HR [facility] Rx#:[id number] Oral 125 120 100 Output: Gastric Drainage 450 Other: Voiding Method Urinal Urinal Urinal # Voids 1 2 # Bowel Movements 1 1 - Exam Physical Exam: Revealed a 66-year-old white male in no distress, on 2 L nasal cannula Head: Atraumatic, normocephalic. Eyes: PERRLA, EOMI, no icterus. HEENT:[Neck is supple.] [No neck masses.] [No thyromegaly.] [No JVD.] Nasogastric tube is in place. Chest: [Diminished breath sounds at the bases, no crackles or rhonchi or wheezes , patient does have a barrel chest.] Cardiac Exam: [Normal S1 and S2, no S3 gallop, no murmur.] Abdomen: [Postsurgical, some redness noted in the periumbilical area, could be related to her cellulitis of the abdominal wall. No rebound, no guarding. As the bowel sounds. Extremities: [No clubbing, no edema, no cyanosis.] Neurological Exam: [No focal neurologic deficit.] Psychiatric: Normal mood affect and mental status examination. Lymphatics: No lymphadenopathy. - Labs CBC & Chem 7: 08/25/17 07:56 08/26/17 05:57 Labs: Abnormal Lab Results - Last 24 Hours (Table) 08/25/17 08/25/17 08/26/17 Range/Units 16:37 21:10 05:57 Chloride 92 L (98-107) mmol/L Carbon Dioxide 38 H (22-30) mmol/L BUN 38 H (9-20) mg/dL Creatinine 2.31 H (0.66-1.25) mg/dL Glucose 130 H (74-99) mg/dL POC Glucose (mg/dL) 210 H 165 H (75-99) mg/dL Alkaline Phosphatase 139 H (38-126) U/L Total Protein 5.2 L (6.3-8.2) g/dL Albumin 3.0 L (3.5-5.0) g/dL 08/26/17 Range/Units 06:21 Chloride (98-107) mmol/L Carbon Dioxide (22-30) mmol/L BUN (9-20) mg/dL Creatinine (0.66-1.25) mg/dL Glucose (74-99) mg/dL POC Glucose (mg/dL) 141 H (75-99) mg/dL Alkaline Phosphatase (38-126) U/L Total Protein (6.3-8.2) g/dL Albumin (3.5-5.0) g/dL Microbiology - Last 24 Hours (Table) 08/22/17 21:50 Blood Culture - Preliminary Blood No Growth after 72 hours 08/22/17 21:22 Blood Culture Gram Stain - Final Blood Blood Culture - Final Staphylococcus epidermidis Assessment and Plan Assessment: 1 Acute on chronic hypoxic and hypercapnic respiratory failure secondary to COPD 2 postoperative hallucination most likely secondary to metabolic encephalopathy with relative hypoxia and hypercapnia. Again that is acute on chronic. Fever could be another contributing factor to his hallucination. 3 episodic fever currently under investigation. Computed tomography scan of the abdomen revealed a right colon colitis. That is being addressed by surgery on the case. 4 lacunar stroke based on the CAT scan findings 5 umbilical hernia repair 6 smoker 7 hypertension 8 diabetes mellitus 9 paroxysmal atrial fibrillation, awaiting a cardiology evaluation 10 hypernatremia, resolved 11 acute nonoliguric acute kidney injury felt to be secondary to nonsteroidal anti-inflammatory drugs and vancomycin. Being addressed by nephrology on the case. Recommendation: Continue present treatment plan, continue bronchodilators, BiPAP as needed especially at night, hopefully he qualifies for BiPAP at home, otherwise we'll have to have a sleep study on outpatient basis. From the pulmonary perspective, patient could be considered for discharge planning, however his real issue seems to be a new issue that being addressed by nephrology at this point. Time with Patient: Less than 30
[2017-08-26 12:21] LABS: Glucose,Whole Blood 148 mg/dL (75-99)
--- NOTE | 2017-08-26 12:56 | PN ---
PROGRESS NOTE DATE OF SERVICE: 08/26/2017 REASON FOR FOLLOWUP: 1. Colitis. 2. Positive blood culture, likely contamination. INTERVAL HISTORY: The patient is afebrile. He seems to be more awake and alert today. He is breathing comfortably. Denies having any chest pain. He did have some cough but not bringing up sputum. No abdominal pain, has been complaining of loose stool, had about 4 since morning with no blood or mucus in it. PHYSICAL EXAMINATION: Blood pressure 156/76 with a pulse of 84, temperature of 98. He is 93% on 5 L nasal cannula. General description is an elderly male lying in bed, in no distress. RESPIRATORY SYSTEM: Unlabored breathing with decreased breath sounds at bases, no wheeze. HEART: S1, S2. Regular rate and rhythm. ABDOMEN: Soft, mild tenderness. No guarding or rigidity. LABS: BUN of 38, creatinine is 2.31. Blood culture repeat has been negative. DIAGNOSTIC IMPRESSION AND PLAN: Patient in the hospital with mental status changes in a patient who recently did have an abdominal hernia repair, subsequently admitted to the hospital with mental status changes, hallucination. Patient noticed to have evidence of colitis. Will try to obtain stool studies for rule out for C difficile. Antibiotic is Cipro and Flagyl. Discontinue the Zosyn. Continue supportive care. MMODL / IJN: [id number] /
--- NOTE | 2017-08-26 15:10 | P.PN ---
Subjective Progress Note Date: 08/26/17 This is a 66-year-old gentleman admitted to the hospital with mental status changes. He recently underwent herniography and came back with hallucinations. Patient has known history of chronic tobacco use, hypertension, hyperlipidemia , diabetes, home O2, severe COPD, sleep apnea. Patient did have an episode of atrial fibrillation and converted back to normal sinus rhythm. This morning and 18 was called on the patient, he was quite hypoxic and short of breath. Through the night last night, patient also had a loss of bowel sounds and was having diarrhea for this reason an NG tube had been placed. At the time of our examination later in the morning, blood pressure 170/80 with a heart rate in the 90s, 93% on 4 L of oxygen. Patient has been initiated on Xarelto 20 mg daily, we will discontinue the full aspirin that he is on. A cardiogram with Doppler study was performed which revealed an ejection fraction of 50-55%. Patient was also running low-grade fevers through the night and this morning. A computed tomography scan of the abdomen was performed which revealed some bowel wall thickening with ascending and transverse colon compatible with colitis. Fat attenuated stricture along the antimesenteric border of the transverse colon with surrounding inflammatory fat stranding this could relate to omental infarct or appendicitis. Small right pleural effusion also noted. 08/25/2017 Patient seen and examined this morning, remaining in normal sinus rhythm. 95% on 5 L of oxygen today. Blood pressure 138/70, heart rate in the 80s. Sodium 153, potassium 3.2, BUN 30, creatinine 1.0. We will discontinue the Lovenox today and start the patient on Eliquis. 08/27/2007. Patient seen and examined this morning, remaining in a normal sinus rhythm. Hemodynamically stable. NG tube has been removed. Breathing overall is significantly improved. Blood pressure 154/80 with a heart rate in the 70s, 92 % on 5 L high flow. Sodium 143, potassium 3.6, BUN 38, creatinine 2.3. Yesterday's creatinine 1.0. Patient was on lisinopril which has been discontinued, Xarelto continues to be on hold and patient is on Lovenox. We will gently hydrate the patient today check lytes BUN and creatinine in the morning. Objective - Vital Signs Vital signs: Vital Signs Temp 97.6 F 08/26/17 11:10 Pulse 80 04/25/18 12:03 Resp 18 08/26/17 11:10 BP 154/85 08/26/17 11:10 Pulse Ox 92 L 08/26/17 11:10 Intake & Output 08/25/17 08/26/17 08/26/17 18:59 06:59 18:59 Intake Total 125 770 100 Output Total 450 Balance -325 770 100 Weight 126.9 kg Intake: Intake, IV Titration 650 Amount Piperacillin-Tazobactam 3 50 .375 gm In Dextrose/Water 1 50ml.bag @ 12.5 mls/hr IVPB Q8H [facility] Rx#: [id number] Potassium Chloride 20 meq 100 In Water For Injection 1 100ml.bag @ 50 mls/hr IVPB Q2HR [facility] Rx#: [id number] Sodium Chloride 0.45% 1, 400 000 ml @ 100 mls/hr IV . Q10H [facility] Rx#:[id number] metroNIDAZOLE-NS PMX 500 100 mg In Saline 1 100ml.bag @ 100 mls/hr IVPB Q8HR [facility] Rx#:[id number] Oral 125 120 100 Output: Gastric Drainage 450 Other: Voiding Method Urinal Urinal Urinal # Voids 1 2 # Bowel Movements 1 1 - Exam PHYSICAL EXAMINATION: HEENT: Head is atraumatic, normocephalic. Pupils equal, round. Neck is supple. There is no elevated jugular venous pressure. NG tube in place. HEART EXAMINATION: Heart S1, S2 normal. No murmur or gallop heard. CHEST EXAMINATION: Lungs reveal diminished breath sounds to the bases, patient does have a barrel chest ABDOMEN: Soft, nontender. Bowel sounds are heard. No organomegaly noted. EXTREMITIES: 2+ peripheral pulses with no evidence of peripheral edema and no calf tenderness noted. NEUROLOGIC patient is awake, alert and oriented -3. . - Labs CBC & Chem 7: 08/25/17 07:56 08/26/17 05:57 Labs: Abnormal Lab Results - Last 24 Hours (Table) 08/25/17 08/25/17 08/26/17 Range/Units 16:37 21:10 05:57 Chloride 92 L (98-107) mmol/L Carbon Dioxide 38 H (22-30) mmol/L BUN 38 H (9-20) mg/dL Creatinine 2.31 H (0.66-1.25) mg/dL Glucose 130 H (74-99) mg/dL POC Glucose (mg/dL) 210 H 165 H (75-99) mg/dL Alkaline Phosphatase 139 H (38-126) U/L Total Protein 5.2 L (6.3-8.2) g/dL Albumin 3.0 L (3.5-5.0) g/dL 08/26/17 08/26/17 Range/Units 06:21 12:19 Chloride (98-107) mmol/L Carbon Dioxide (22-30) mmol/L BUN (9-20) mg/dL Creatinine (0.66-1.25) mg/dL Glucose (74-99) mg/dL POC Glucose (mg/dL) 141 H 148 H (75-99) mg/dL Alkaline Phosphatase (38-126) U/L Total Protein (6.3-8.2) g/dL Albumin (3.5-5.0) g/dL Microbiology - Last 24 Hours (Table) 08/22/17 21:50 Blood Culture - Preliminary Blood No Growth after 72 hours 08/22/17 21:22 Blood Culture Gram Stain - Final Blood Blood Culture - Final Staphylococcus epidermidis Assessment and Plan Plan: Assessment and plan i #1 mental status changes, could be secondary to chronic hypoxemia and hypercapnia #2 paroxysmal atrial fibrillation #3 status post recent herniorrhaphy #4 hypertension # 5 hyperlipidemia #6 diabetes #7 COPD #8 sleep apnea #9 fever, rule out abdominal wall infection. #10 infective colitis Plan Echocardiogram with Doppler study revealed an ejection fraction of 50-55%. Creatinine up to 2.3 from 1.0. We will gently hydrate the patient today. Recheck lytes BUN and creatinine in the morning. Patient will need to be reinitiated on xarelto,. DNP note has been reviewed, I agree with a documented findings and plan of care. Patient was seen and examined.
[2017-08-26] MEDS: traMADol 50 MG TAB PO SCH ×3 (15:27→22:20)
[2017-08-26] MEDS: SODIUM CHLORIDE 0.9% 1,000 ML IV SCH (15:29)
[2017-08-26 16:54] LABS: Glucose,Whole Blood 164 mg/dL (75-99)
[2017-08-26] MEDS: metroNIDAZOLE 500 MG TAB PO SCH ×2 (17:08→20:40)
--- NOTE | 2017-08-26 17:11 | P.PN ---
Progress Note - Text Progress Note Date: 08/26/17 The patient states he has no abdominal pain. He is hungry and requesting more. He's had some trouble with oliguria. On exam his vital signs are stable. His abdomen soft. There is minimal incisional tenderness. There is no rebound or guarding. There is no evidence peritoneal signs. Resolving colitis. Patient will have his diet increased. We will follow with you.
[2017-08-26] MEDS: HEPARIN SODIUM,PORCINE 5,000 UNIT/ML 1 ML VIAL SQ SCH (20:40)
[2017-08-26 21:14] LABS: Glucose,Whole Blood 156 mg/dL (75-99)
[2017-08-27] MEDS: SODIUM CHLORIDE 0.9% 1,000 ML IV SCH ×3 (04:05→23:45)
[2017-08-27 05:55] LABS: Glucose,Whole Blood 139 mg/dL (75-99)
[2017-08-27] MEDS: CARVEDILOL 12.5 MG TAB PO SCH ×2 (06:25→17:11)
[2017-08-27 06:45] LABS: Albumin 2.5 g/dL (3.5-5.0); Calcium 8.1 mg/dL (8.4-10.2); Magnesium 1.8 mg/dL (1.6-2.3); Potassium 3.4 mmol/L (3.5-5.1); Total Bilirubin 0.5 mg/dL (0.2-1.3); Total Protein 4.5 g/dL (6.3-8.2)
[2017-08-27] MEDS: INSULIN ASPART 100 UNIT/ML 1 ML 10 ML VIAL SQ SCH ×4 (07:00→21:16)
[2017-08-27] MEDS: IPRATROPIUM-ALBUTEROL 3 ML NEB INHALATION SCH ×4 (07:41→19:25)
[2017-08-27] MEDS: SYMBICORT 160-4.5 MCG INHALER INHALATION SCH ×2 (07:42→19:26)
[2017-08-27] MEDS: PANTOPRAZOLE 40 MG/10 ML VIAL IVP SCH (08:45)
[2017-08-27] MEDS: ALLOPURINOL 300 MG TAB PO SCH (08:45)
[2017-08-27] MEDS: TAMSULOSIN 0.4 MG CAP.ER.24H PO SCH (08:45)
[2017-08-27] MEDS: HEPARIN SODIUM,PORCINE 5,000 UNIT/ML 1 ML VIAL SQ SCH ×2 (08:45→21:15)
[2017-08-27] MEDS: traMADol 50 MG TAB PO SCH ×4 (08:45→23:45)
[2017-08-27] MEDS: CIPROFLOXACIN HCL 500 MG TAB PO SCH ×2 (08:45→21:15)
[2017-08-27] MEDS: metroNIDAZOLE 500 MG TAB PO SCH ×3 (08:46→21:16)
[2017-08-27] MEDS: ATORVASTATIN 40 MG TAB PO SCH (08:48)
[2017-08-27] MEDS ORDERED: POTASSIUM CHLORIDE ER 20 MEQ TAB.ER PO STA (09:17)
--- NOTE | 2017-08-27 09:17 | P.PN ---
Subjective Patient is seen in follow-up for acute kidney injury. His baseline creatinine is near 1 and elevated at 3.12 today. Patient was noted to have an ileus and had an NG tube in place which was discontinued 2 days ago and he started tolerating regular diet. Denies abdominal pain. NSAIDs have been discontinued. He's also noted to have colitis for which she is maintained on antibiotics per infectious disease recommendations. He was noted to have urinary retention with over 1 L of urine on bladder scan and underwent straight catheterization last night. He had a Bowden catheter inserted this morning for persistent retention. Patient denies any chest pain or shortness of breath. Vital signs are stable. General: The patient appeared well nourished and normally developed. HEENT: Head exam is unremarkable. Neck is without jugular venous distension. LUNGS: Lungs are clear to auscultation and percussion. Breath sounds decreased. HEART: Rate and Rhythm are regular. First and second heart sounds normal. No murmurs, rubs or gallops. ABDOMEN: Abdominal exam reveals normal bowel sounds. Non-tender and non- distended. No evidence of peritonitis. EXTREMITITES: No clubbing, cyanosis, or edema. Objective - Vital Signs Vital signs: Vital Signs Temp 97.8 F 08/27/17 04:00 Pulse 84 08/27/17 07:55 Resp 20 08/27/17 04:00 BP 131/64 08/27/17 04:00 Pulse Ox 95 08/27/17 07:44 Intake & Output 08/26/17 08/27/17 08/27/17 18:59 06:59 18:59 Intake Total 1220 Output Total 2099 Balance 1220 -2099 Weight 131.3 kg Intake: Intake, IV Titration 640 Amount Magnesium Sulfate-D5w Pmx 100 1 gm In Dextrose/Water 1 100ml.bag @ 100 mls/hr IVPB ONCE ONE Rx#: [id number] Sodium Chloride 0.45% 1, 200 000 ml @ 100 mls/hr IV . Q10H [facility] Rx#:[id number] Sodium Chloride 0.9% 1, 240 000 ml @ 60 mls/hr IV . [id number] [facility] Rx#:[id number] metroNIDAZOLE-NS PMX 500 100 mg In Saline 1 100ml.bag @ 100 mls/hr IVPB Q8HR [facility] Rx#:[id number] Oral 580 Output: Urine 1100 Straight 1100 Post Void Residual 999 Other: Voiding Method Urinal Urinal # Bowel Movements 1 2 - Labs CBC & Chem 7: 08/25/17 07:56 08/27/17 05:29 Labs: Abnormal Lab Results - Last 24 Hours (Table) 08/26/17 08/26/17 08/26/17 Range/Units 12:19 16:46 21:12 Potassium (3.5-5.1) mmol/L Chloride (98-107) mmol/L Carbon Dioxide (22-30) mmol/L BUN (9-20) mg/dL Creatinine (0.66-1.25) mg/dL Glucose (74-99) mg/dL POC Glucose (mg/dL) 148 H 164 H 156 H (75-99) mg/dL Calcium (8.4-10.2) mg/dL Total Protein (6.3-8.2) g/dL Albumin (3.5-5.0) g/dL 08/27/17 08/27/17 Range/Units 05:29 05:54 Potassium 3.4 L (3.5-5.1) mmol/L Chloride 94 L (98-107) mmol/L Carbon Dioxide 37 H (22-30) mmol/L BUN 43 H (9-20) mg/dL Creatinine 3.12 H (0.66-1.25) mg/dL Glucose 137 H (74-99) mg/dL POC Glucose (mg/dL) 139 H (75-99) mg/dL Calcium 8.1 L (8.4-10.2) mg/dL Total Protein 4.5 L (6.3-8.2) g/dL Albumin 2.5 L (3.5-5.0) g/dL Microbiology - Last 24 Hours (Table) 08/22/17 21:50 Blood Culture - Preliminary Blood No Growth after 96 hours 08/26/17 10:00 Stool Culture - Preliminary Stool Assessment and Plan Plan: Assessment: #1. Nonoliguric acute kidney injury secondary to ATN secondary to nonsteroidals and vancomycin use. Urinary retention also contributing factor. Urinalysis is quite benign. No evidence of hydronephrosis noted on CAT scan. He does have left kidney atrophy. #2. Colitis maintained on antibiotics per infectious disease recommendations. #3. Ileus. Now on a regular diet. Surgery following. #4. Hypernatremia secondary to lack of oral water intake. Improved. #5. Hypokalemia due to poor oral intake and metabolic alkalosis status post replacement. Magnesium replete. #6. Acute hypercapnic respiratory failure. Improved. #7. Insulin-dependent diabetes mellitus. #8. History of diastolic CHF. Currently compensated. #9. History of BPH maintained on Flomax. #10. Metabolic alkalosis. Partially compensate for underlying respiratory acidosis. Further worsened from hydrogen losses from NG suction. Improved. #11. Urinary retention status post Bowden catheter placement. Plan: Maintain normal saline at 60 mL an hour. Avoid nephrotoxic agents and hypotensive episodes. Toradol and vancomycin has been discontinued. Replace potassium. 40 mEq today. Maintain Bowden catheter for now. Maintain Flomax. Repeat electrolytes in the morning.
--- NOTE | 2017-08-27 11:29 | P.PN ---
Subjective Progress Note Date: 08/27/17 Principal diagnosis: Acute on chronic hypoxic and hypercapnic respiratory failure with recent episode of hallucinations following repair of umbilical hernia. This 66-year-old male patient has COPD, chronic hypoxic and hypercapnic respiratory failure however has not had any adequate follow-up in terms of his pulmonary condition. He states that he has not been maintained on oxygen even. He smokes on a regular basis 1 pack of cigarettes a day. He underwent a recent abdominal wall hernia repair and he was discharged home on oxycodone. Surgery went fine and the patient did not have any immediate postoperative complications. The patient subsequently started developing some hallucination. He was able to see images of family members coming in visiting him and he had some auditory hallucinations. Denies having any chest pain. No cough or sputum production. No hemoptysis or pleurisy. No swelling lower extremities. No abdominal pain. Surgical wound site over the abdominal wall is dry clean and intact. No fever or chills. He came into the emergency room her chest x- ray was done and the blood gases was done. The chest x-ray reveals cardiomegaly along with some mild pulmonary vessel congestion and the blood gases showed a pH of 7.37 with a pCO2 of 63 and pO2 of 63 and this was on FiO2 of 28% consistent with chronic hypoxic and hypercapnic respiratory failure. He denies having any respiratory difficulties. No nausea vomiting or abdominal pain. No 70 psychiatric history. Most of depression perhistory of schizophrenia. He is diabetic. He also has history of BPH. He is obese. No 70 CPAP therapy at home. No 70 documented sleep breathing disorder. The patient's CPK is 1300. The troponin is a 0.02. Urinalysis negative. Urine drug screen is positive for opiates. EKG was showing sinus tachycardia type of admission with a heart rate of 125 and some nonspecific T-wave changes. The patient had a CAT scan of the brain was also negative. There is evidence of old lacunar infarct in the external capsule on the left and chronic white matter ischemic changes. On 08/23/2017 I'm seeing this patient for a follow-up. He is resting comfortably in bed. I was able to witness some apneas that was occurring while the patient was sleeping. It happened at a time when I came in to evaluate this patient and the patient was taken a nap and is obvious that the patient is having apneas. As such the patient has likely an underlying obstructive sleep apnea in addition to COPD contributing to his chronic hypercapnic respiratory failure. The patient also has chronic hypoxic respiratory failure. He was easily arousable. He does not have any hallucinations over the past 24 hours. He was having episodes of fever. He was also noted to have a run of atrial fibrillation which converted back to normal sinus rhythm. For that reason, cardiology was consulted and general surgery will be also evaluating the patient regarding his most recent hernia repair. There is some erythema over the anterior abdominal wall which raises the suspicion for an underlying abdominal wall cellulitis/infection. No drainage from the surgical wound site. Patient denies having any cough or sputum production. No chest pain. He is tolerating his diet. No nausea or vomiting. A lengthy discussion with the son who tells me that the patient has been in a poor health over the past 2 years. He has been sleeping a lot and he spends most of the time in bed and is been essentially sedentary. He is a chronic smoker. Probably chronic hypoxic yet he hasn't been using any form of respiratory medications are oxygen therapy. Cardiology will be also evaluating this patient today. His T-max was 100.4 Patient was reevaluated today on 08/24/2017, he is still on BiPAP, his ABG is acceptable with adequate metabolic compensation for his respiratory acidosis. Patient is complaining about his BiPAP, however I will try to intermittently use high flow nasal cannula alternating with BiPAP. Clinically, the patient does have COPD with chronic hypoxic and hypercapnic respiratory failure. Apparently this was not manifested clearly until his recent admission to the hospital following his hernia repair. Apparently he was having intermittent episodes of hallucinations post surgery. ABG on BiPAP today showed a pO2 of 68 pCO2 of 68 pH of 7.40. CBC was normal. Basic metabolic profile is normal with bicarb of 40 which is expected considering his chronic hypercapnic respiratory failure. The patient is seen again today 08/25/2017 in follow-up on the selective care unit. He is currently sitting up in bed. He is awake and alert in no acute distress. He has been wearing his BiPAP throughout the evening. Maintaining good O2 sat saturations in the upper 90s on 50% FiO2. Maintained on Symbicort and DuoNeb's. He's been afebrile. Computed tomography scan of the abdomen showed evidence of right colon colitis. Nasogastric tube is in place. Over 500 mls dark fluid out today thus far. He remains on metronidazole, Zosyn and vancomycin. Remains on IV Protonix. White count 10.5. Hemoglobin 15.7. Sodium 153. Bicarb 42. Creatinine 1.00. Reevaluated today on 08/26/2017, patient seems to be doing much better, he is asymptomatic, has been using his BiPAP at night, and has been doing great with the BiPAP. We'll try if we could qualify the patient for BiPAP at home. Otherwise he may require a sleep study on outpatient basis to get him qualified for BiPAP. In the meantime he is maintained on bronchodilators. He did develop hypernatremia secondary to free water deficit, and that is being addressed by nephrology. The patient is seen again today 08/27/2017 in follow-up on the selective care unit. He is awake and alert in no acute distress. He is breathing easier today as compared to yesterday. He did utilize the BiPAP last night. He states he is becoming more comfortable with it and it does seem to be helping. We are hoping to qualify him for home BiPAP. He is currently maintaining O2 saturations in the mid 90s on 5 L high flow nasal cannula. He is afebrile. Hemodynamically stable. Creatinine 3.12. The patient required a straight cath yesterday and over a liter of urine was returned. Bowden catheter today. Stool cultures pending. Objective - Vital Signs Vital signs: Vital Signs Temp 97.0 F L 08/27/17 08:10 Pulse 78 08/27/17 08:10 Resp 20 08/27/17 08:10 BP 144/65 08/27/17 08:10 Pulse Ox 95 08/27/17 08:10 Intake & Output 08/26/17 08/27/17 08/27/17 18:59 06:59 18:59 Intake Total 1220 300 Output Total 2098 2067 Balance 1219 Weight 131.3 kg Intake: IV 10 Invasive Line 3 10 Intake, IV Titration 640 60 Amount Magnesium Sulfate-D5w Pmx 100 1 gm In Dextrose/Water 1 100ml.bag @ 100 mls/hr IVPB ONCE ONE Rx#: [id number] Sodium Chloride 0.45% 1, 200 000 ml @ 100 mls/hr IV . Q10H [facility] Rx#:[id number] Sodium Chloride 0.9% 1, 240 60 000 ml @ 60 mls/hr IV . [id number] [facility] Rx#:[id number] metroNIDAZOLE-NS PMX 500 100 mg In Saline 1 100ml.bag @ 100 mls/hr IVPB Q8HR [facility] Rx#:[id number] Oral 580 230 Output: Urine 1100 1100 Straight 1100 1100 Post Void Residual 999 968 Other: Voiding Method Urinal Urinal Indwelling Catheter # Bowel Movements 1 2 1 - Exam Physical Exam: Revealed a 66-year-old white male in no distress, on BiPAP. Head: Atraumatic, normocephalic. Eyes: PERRLA, EOMI, no icterus. HEENT:Neck is supple. No neck masses. No thyromegaly. No JVD. Chest: Diminished breath sounds at the bases, no crackles or rhonchi or wheezes , patient does have a barrel chest. Cardiac Exam: Normal S1 and S2, no S3 gallop, no murmur. Abdomen: Postsurgical, some redness noted in the periumbilical area, could be related to her cellulitis of the abdominal wall. No rebound, no guarding. As the bowel sounds. Extremities: No clubbing, no edema, no cyanosis. Neurological Exam: No focal neurologic deficit. Psychiatric: Normal mood affect and mental status examination. Lymphatics: No lymphadenopathy. - Labs CBC & Chem 7: 08/25/17 07:56 08/27/17 05:29 Labs: Abnormal Lab Results - Last 24 Hours (Table) 08/26/17 08/26/17 08/26/17 Range/Units 12:19 16:46 21:12 Potassium (3.5-5.1) mmol/L Chloride (98-107) mmol/L Carbon Dioxide (22-30) mmol/L BUN (9-20) mg/dL Creatinine (0.66-1.25) mg/dL Glucose (74-99) mg/dL POC Glucose (mg/dL) 148 H 164 H 156 H (75-99) mg/dL Calcium (8.4-10.2) mg/dL Total Protein (6.3-8.2) g/dL Albumin (3.5-5.0) g/dL 08/27/17 08/27/17 Range/Units 05:29 05:54 Potassium 3.4 L (3.5-5.1) mmol/L Chloride 94 L (98-107) mmol/L Carbon Dioxide 37 H (22-30) mmol/L BUN 43 H (9-20) mg/dL Creatinine 3.12 H (0.66-1.25) mg/dL Glucose 137 H (74-99) mg/dL POC Glucose (mg/dL) 139 H (75-99) mg/dL Calcium 8.1 L (8.4-10.2) mg/dL Total Protein 4.5 L (6.3-8.2) g/dL Albumin 2.5 L (3.5-5.0) g/dL Microbiology - Last 24 Hours (Table) 08/22/17 21:50 Blood Culture - Preliminary Blood No Growth after 96 hours 08/26/17 10:00 Stool Culture - Preliminary Stool Assessment and Plan Assessment: 1 Acute on chronic hypoxic and hypercapnic respiratory failure secondary to COPD 2 postoperative hallucination most likely secondary to metabolic encephalopathy with relative hypoxia and hypercapnia. Again that is acute on chronic. Fever could be another contributing factor to his hallucination. 3 episodic fever currently under investigation. Computed tomography scan of the abdomen revealed a right colon colitis. That is being addressed by surgery on the case. 4 lacunar stroke based on the CAT scan findings 5 umbilical hernia repair 6 smoker 7 hypertension 8 diabetes mellitus 9 paroxysmal atrial fibrillation, awaiting a cardiology evaluation 10 hypernatremia 11 acute renal failure in a month current creatinine 3.12. The patient had a post residual straight cath of [address] L[address] catheter in [address]. Recommendation: The patient was seen and evaluated by Dr. العراقي. We'll continue with the BiPAP as needed. Perform a nighttime oximeter reading to trying qualify for home BiPAP. Continue bronchodilators and Symbicort. We will continue to follow and make further recommendations based on his clinical status. I, the cosigning physician, performed a history & physical examination of the patient. Lungs sounds have crackles in the bilateral posterior bases more so on the right. Maintaining good O2 saturations in the 90s on 50% FiO2 per BiPAP. I discussed the assessment and plan of care with my nurse practitioner, Keri Villagran. I attest to the above note as dictated by her.
[2017-08-27 11:47] LABS: Glucose,Whole Blood 172 mg/dL (75-99)
--- NOTE | 2017-08-27 12:41 | P.PN ---
Subjective Progress Note Date: 08/27/17 The patient is feeling much better today, he is up sitting beside his bed, with his daughter present. Does report approximately 4-5 episodes of watery diarrhea since yesterday, denies any subjective fevers or chills. Reports that his breathing is much better currently on nasal cannula at present with a good oxygen saturations and unlabored respirations. Patient does not recall the stated ALLERGY to iodine, despite it being listed on his ALLERGY list. He has been doing well with diabetic diet without any nausea or abdominal pain. Otherwise no acute events overnight Objective - Vital Signs Vital signs: Vital Signs Temp 97.1 F L 08/27/17 12:00 Pulse 75 08/27/17 12:00 Resp 18 08/27/17 12:00 BP 145/66 08/27/17 12:00 Pulse Ox 96 08/27/17 12:11 Intake & Output 08/26/17 08/27/17 08/27/17 18:59 06:59 18:59 Intake Total 1220 310 Output Total 2098 2067 Balance 1220 -2099 -1758 Weight 131.3 kg Intake: IV 20 Invasive Line 3 20 Intake, IV Titration 640 60 Amount Magnesium Sulfate-D5w Pmx 100 1 gm In Dextrose/Water 1 100ml.bag @ 100 mls/hr IVPB ONCE ONE Rx#: [id number] Sodium Chloride 0.45% 1, 200 000 ml @ 100 mls/hr IV . Q10H [facility] Rx#:[id number] Sodium Chloride 0.9% 1, 240 60 000 ml @ 60 mls/hr IV . [id number] [facility] Rx#:[id number] metroNIDAZOLE-NS PMX 500 100 mg In Saline 1 100ml.bag @ 100 mls/hr IVPB Q8HR [facility] Rx#:[id number] Oral 580 230 Output: Urine 1100 1100 Straight 1100 1100 Post Void Residual 999 968 Other: Voiding Method Urinal Urinal Indwelling Catheter # Voids 0 # Bowel Movements 1 2 0 - Exam Constitutional: No acute distress, conversant, pleasant Eyes: Anicteric sclerae, moist conjunctiva, no lid-lag, PERRLA ENMT: NC/AT,Oropharynx clear, no erythema, exudates Neck:Supple, FROM, no masses, or JVD, No carotid bruits; No thyromegaly Lungs: Diminished with poor air movement diffusely, Clear to percussion, mild respiratory distress tachypneaic on BiPAP Cardiovascular: Heart regular in rate and rhythm, No murmurs, gallops, or rubs no peripheral edema Abdominal: Soft Nontender, nom distended, no guarding, no rebound or rigidity, Normoactive bowel sounds No hepatomegaly, No splenomegaly, No palpable mass No abdominal wall hernia noted Skin: Normal temperature, tone, texture, turgor, No induration No subcutaneous nodules, No rash, lesions, No ulcers Extremities:No digital cyanosis No clubbing, Pedal pulses intact and symmetrical Radial pulses intact and symmetrical Normal gait and station, No calf tenderness Psychiatric: Alert and oriented to person, place and time, Appropriate affect Intact judgement Neuro: Muscles Strength 5/5 in all 4 extremities, Sensation to light touch grossly present throughout, Cranial nerves II-XII grossly intact. No focal sensory deficits - Labs CBC & Chem 7: 08/25/17 07:56 08/27/17 05:29 Labs: Abnormal Lab Results - Last 24 Hours (Table) 08/26/17 08/26/17 08/27/17 Range/Units 16:46 21:12 05:29 Potassium 3.4 L (3.5-5.1) mmol/L Chloride 94 L (98-107) mmol/L Carbon Dioxide 37 H (22-30) mmol/L BUN 43 H (9-20) mg/dL Creatinine 3.12 H (0.66-1.25) mg/dL Glucose 137 H (74-99) mg/dL POC Glucose (mg/dL) 164 H 156 H (75-99) mg/dL Calcium 8.1 L (8.4-10.2) mg/dL Total Protein 4.5 L (6.3-8.2) g/dL Albumin 2.5 L (3.5-5.0) g/dL 08/27/17 08/27/17 Range/Units 05:54 11:45 Potassium (3.5-5.1) mmol/L Chloride (98-107) mmol/L Carbon Dioxide (22-30) mmol/L BUN (9-20) mg/dL Creatinine (0.66-1.25) mg/dL Glucose (74-99) mg/dL POC Glucose (mg/dL) 139 H 172 H (75-99) mg/dL Calcium (8.4-10.2) mg/dL Total Protein (6.3-8.2) g/dL Albumin (3.5-5.0) g/dL Microbiology - Last 24 Hours (Table) 08/22/17 21:50 Blood Culture - Preliminary Blood No Growth after 96 hours 08/26/17 10:00 Stool Culture - Preliminary Stool Assessment and Plan (1) Acute kidney injury Narrative/Plan: * Patient had a dramatic increase his creatinine from 1.0 --> 2.3 --> 3.12 * Multifactorial secondary to contrast-induced nephropathy versus medication induced nephropathy superimposed on retention as a patient did receive contrast prior to his CT abdomen and pelvis there appears a patient does have a documented ALLERGY to iodine. Patient did receive 3 doses of vancomycin with trough level at 19 yesterday and also received ongoing IV Toradol for pain ( both have since been discontinued) * Appreciate Dr. Gonzalez's recommendations . * Continue to avoid nephrotoxic agents * We'll continue hypotonic solution 1/2 NS at 100 mL an hour Current Visit: Yes Status: Acute Code(s): N17.9 - ACUTE KIDNEY FAILURE, UNSPECIFIED SNOMED Code(s): 95206074 (2) Encephalopathy Narrative/Plan: * resolved likely multifactorial secondary chronic hypoxemic and hypercarbic respiratory failure superimposed on delirium triggered by ongoing hypoxia versus sepsis versus medication induced as patient was previously on narcotics hydrocodone postop * CT of the head only showing old lacunar infarct left external capsule with chronic white matter ischemic changes * Continue with antiplatelet therapy with aspirin 325 mg by mouth daily Current Visit: Yes Status: Resolved Code(s): G93.40 - ENCEPHALOPATHY, UNSPECIFIED SNOMED Code(s): 82630622 (3) Chronic respiratory failure with hypoxia and hypercapnia Narrative/Plan: * Patient requiring decreasing oxygen requirements was stopped off BiPAP and is now on nasal cannula today * Continue on nasal cannula, patient scheduled to have evaluation for home BiPAP with overnight polysomnogram per pulmonary recommendations * Ejection fraction 50-55% on echocardiogram Current Visit: Yes Status: Chronic Code(s): J96.11 - CHRONIC RESPIRATORY FAILURE WITH HYPOXIA; J96.12 - CHRONIC RESPIRATORY FAILURE WITH HYPERCAPNIA SNOMED Code(s): 50379395 (4) Sepsis Narrative/Plan: * Normal white blood cell count with ongoing fevers * CT abdomen and pelvis suggestive of colitis in the ascending and transverse colon on * Appreciate ID recommendations by Dr. Mccullough, Levaquin discontinued continue with Zosyn and Flagyl and vancomycin * Preliminary culture suggestive of a coagulase-negative staph which is likely contaminant * Gen. surgery are already seen the patient and plans conservative management, will appreciate any further recommendations Current Visit: Yes Status: Acute Code(s): A41.9 - SEPSIS, UNSPECIFIED ORGANISM SNOMED Code(s): 02672453 (5) Infective colitis Narrative/Plan: * Treatment as above Current Visit: Yes Status: Acute Code(s): A09 - INFECTIOUS GASTROENTERITIS AND COLITIS, UNSPECIFIED SNOMED Code(s): 82399076 (6) Type 2 diabetes mellitus with hyperglycemia Narrative/Plan: * Continue to monitor blood sugars they are elevated continue correctional scale regimen * A1c is 7.4 Current Visit: Yes Status: Acute Code(s): E11.65 - TYPE 2 DIABETES MELLITUS WITH HYPERGLYCEMIA SNOMED Code(s): 453025546333666 (7) Ileus Narrative/Plan: * Tolerating diabetic diet well Current Visit: Yes Status: Resolved Code(s): K56.7 - ILEUS, UNSPECIFIED SNOMED Code(s): 742997118 (8) BPH w urinary obs/LUTS Narrative/Plan: * Increased dosage of Flomax to 0.4 mg by mouth twice a day Current Visit: Yes Status: Acute Code(s): N40.1 - BENIGN PROSTATIC HYPERPLASIA WITH LOWER URINARY TRACT SYMP; N13.8 - OTHER OBSTRUCTIVE AND REFLUX UROPATHY SNOMED Code(s): 996651077
--- NOTE | 2017-08-27 14:34 | P.PN ---
Subjective Progress Note Date: 08/27/17 This is a 66-year-old gentleman admitted to the hospital with mental status changes. He recently underwent herniography and came back with hallucinations. Patient has known history of chronic tobacco use, hypertension, hyperlipidemia , diabetes, home O2, severe COPD, sleep apnea. Patient did have an episode of atrial fibrillation and converted back to normal sinus rhythm. This morning and 18 was called on the patient, he was quite hypoxic and short of breath. Through the night last night, patient also had a loss of bowel sounds and was having diarrhea for this reason an NG tube had been placed. At the time of our examination later in the morning, blood pressure 170/80 with a heart rate in the 90s, 93% on 4 L of oxygen. Patient has been initiated on Xarelto 20 mg daily, we will discontinue the full aspirin that he is on. A cardiogram with Doppler study was performed which revealed an ejection fraction of 50-55%. Patient was also running low-grade fevers through the night and this morning. A computed tomography scan of the abdomen was performed which revealed some bowel wall thickening with ascending and transverse colon compatible with colitis. Fat attenuated stricture along the antimesenteric border of the transverse colon with surrounding inflammatory fat stranding this could relate to omental infarct or appendicitis. Small right pleural effusion also noted. 08/25/2017 Patient seen and examined this morning, remaining in normal sinus rhythm. 95% on 5 L of oxygen today. Blood pressure 138/70, heart rate in the 80s. Sodium 153, potassium 3.2, BUN 30, creatinine 1.0. We will discontinue the Lovenox today and start the patient on Eliquis. 08/26/2017. Patient seen and examined this morning, remaining in a normal sinus rhythm. Hemodynamically stable. NG tube has been removed. Breathing overall is significantly improved. Blood pressure 154/80 with a heart rate in the 70s, 92 % on 5 L high flow. Sodium 143, potassium 3.6, BUN 38, creatinine 2.3. Yesterday's creatinine 1.0. Patient was on lisinopril which has been discontinued, Xarelto continues to be on hold and patient is on Lovenox. We will gently hydrate the patient today check lytes BUN and creatinine in the morning. 08/27/2017 Patient seen and examined this morning, remaining in normal sinus rhythm, blood pressure and heart rate stable. Continues to be on subcu heparin. Creatinine up to 3.1 today, potassium 3.4. Patient is covered for xarelto, we will also check into coverage with Eliquis. We may have to adjust the dose based on his kidney function, at this time we will continue with the subcu heparin. Objective - Vital Signs Vital signs: Vital Signs Temp 97.1 F L 08/27/17 12:00 Pulse 75 08/27/17 12:00 Resp 18 08/27/17 12:00 BP 145/66 08/27/17 12:00 Pulse Ox 96 08/27/17 12:11 Intake & Output 08/26/17 08/27/17 08/27/17 18:59 06:59 18:59 Intake Total 1220 550 Output Total 2098 2067 Balance 1220 -2098 -1517 Weight 131.3 kg Intake: IV 20 Invasive Line 3 20 Intake, IV Titration 640 60 Amount Magnesium Sulfate-D5w Pmx 100 1 gm In Dextrose/Water 1 100ml.bag @ 100 mls/hr IVPB ONCE ONE Rx#: [id number] Sodium Chloride 0.45% 1, 200 000 ml @ 100 mls/hr IV . Q10H [facility] Rx#:[id number] Sodium Chloride 0.9% 1, 240 60 000 ml @ 60 mls/hr IV . [id number] [facility] Rx#:[id number] metroNIDAZOLE-NS PMX 500 100 mg In Saline 1 100ml.bag @ 100 mls/hr IVPB Q8HR [facility] Rx#:[id number] Oral 580 470 Output: Urine 1100 1100 Straight 1100 1100 Post Void Residual 999 968 Other: Voiding Method Urinal Urinal Indwelling Catheter # Voids 0 # Bowel Movements 1 2 0 - Exam PHYSICAL EXAMINATION: HEENT: Head is atraumatic, normocephalic. Pupils equal, round. Neck is supple. There is no elevated jugular venous pressure. NG tube in place. HEART EXAMINATION: Heart S1, S2 normal. No murmur or gallop heard. CHEST EXAMINATION: Lungs reveal diminished breath sounds to the bases, patient does have a barrel chest ABDOMEN: Soft, nontender. Bowel sounds are heard. No organomegaly noted. EXTREMITIES: 2+ peripheral pulses with no evidence of peripheral edema and no calf tenderness noted. NEUROLOGIC patient is awake, alert and oriented -3. . - Labs CBC & Chem 7: 08/25/17 07:56 08/27/17 05:29 Labs: Abnormal Lab Results - Last 24 Hours (Table) 08/26/17 08/26/17 08/27/17 Range/Units 16:46 21:12 05:29 Potassium 3.4 L (3.5-5.1) mmol/L Chloride 94 L (98-107) mmol/L Carbon Dioxide 37 H (22-30) mmol/L BUN 43 H (9-20) mg/dL Creatinine 3.12 H (0.66-1.25) mg/dL Glucose 137 H (74-99) mg/dL POC Glucose (mg/dL) 164 H 156 H (75-99) mg/dL Calcium 8.1 L (8.4-10.2) mg/dL Total Protein 4.5 L (6.3-8.2) g/dL Albumin 2.5 L (3.5-5.0) g/dL 08/27/17 08/27/17 Range/Units 05:54 11:45 Potassium (3.5-5.1) mmol/L Chloride (98-107) mmol/L Carbon Dioxide (22-30) mmol/L BUN (9-20) mg/dL Creatinine (0.66-1.25) mg/dL Glucose (74-99) mg/dL POC Glucose (mg/dL) 139 H 172 H (75-99) mg/dL Calcium (8.4-10.2) mg/dL Total Protein (6.3-8.2) g/dL Albumin (3.5-5.0) g/dL Microbiology - Last 24 Hours (Table) 08/22/17 21:50 Blood Culture - Preliminary Blood No Growth after 96 hours 08/26/17 10:00 Stool Culture - Preliminary Stool Assessment and Plan Plan: Assessment and plan i #1 mental status changes, could be secondary to chronic hypoxemia and hypercapnia #2 paroxysmal atrial fibrillation #3 status post recent herniorrhaphy #4 hypertension # 5 hyperlipidemia #6 diabetes #7 COPD #8 sleep apnea #9 fever, rule out abdominal wall infection. #10 infective colitis Plan Echocardiogram with Doppler study revealed an ejection fraction of 50-55%. Creatinine up to 3.1. Continue hydration at 60 mL/h. Recheck lytes BUN and creatinine in the morning. Once her creatinine stabilizes, we will need to reinitiate oral anticoagulation.. DNP note has been reviewed, I agree with a documented findings and plan of care. Patient was seen and examined.
[2017-08-27 17:06] LABS: Glucose,Whole Blood 192 mg/dL (75-99)
[2017-08-27] MEDS: PANTOPRAZOLE 40 MG TABLET PO SCH (17:13)
[2017-08-27 21:15] LABS: Glucose,Whole Blood 119 mg/dL (75-99)
--- NOTE | 2017-08-27 22:58 | PN ---
PROGRESS NOTE DATE OF SERVICE: 08/27/2017 REASON FOR FOLLOWUP: Colitis. INTERVAL HISTORY: The patient is afebrile. He has been breathing comfortably. He remains awake and alert. Occasional cough. No chest pain. No abdominal pain. Diarrhea seems to have slightly improved. No nausea or vomiting. PHYSICAL EXAMINATION: Blood pressure 144/67 with a pulse of 79, temperature 97.2. He is 95% on 2 L nasal cannula. General description is an elderly male up in the chair in no distress. RESPIRATORY SYSTEM: Unlabored breathing with decreased breath sounds in the bases. No wheeze. HEART: S1, S2. Regular rate and rhythm. ABDOMEN: Soft. No tenderness. LABS: Hemoglobin 15.7, white count 10.5. BUN of 43 with a creatinine of 3.12. Stool for C difficile has been negative. Stool culture is currently pending. DIAGNOSTIC IMPRESSION AND PLAN: Patient admitted to hospital mostly with hallucinations, mental status changes with recent ventral hernia repair, robotic-assisted, with some evidence of colitis on the basis of the CT finding. He did have a stool C difficile which came back negative. Stool cultures are pending. Currently on the Cipro and Flagyl. That will be continued while waiting for the condition to stabilize, especially his kidney function to improve. Continue supportive care. MMODL / IJN: [id number] /
[2017-08-28] MEDS: traMADol 50 MG TAB PO SCH ×4 (05:31→21:11)
[2017-08-28 06:18] LABS: Glucose,Whole Blood 144 mg/dL (75-99)
[2017-08-28] MEDS: PANTOPRAZOLE 40 MG TABLET PO SCH (06:23)
[2017-08-28] MEDS: INSULIN ASPART 100 UNIT/ML 1 ML 10 ML VIAL SQ SCH ×4 (06:24→21:10)
[2017-08-28] MEDS: CARVEDILOL 12.5 MG TAB PO SCH ×2 (06:24→17:03)
[2017-08-28 06:50] LABS: Basophils % (A) 0 %; Eosinophils # (A) 0.5 k/uL (0-0.7); Eosinophils % (A) 6 %; HGB 14.5 gm/dL (13.0-17.5); Lymphocytes % (A) 12 %; MCH 31.2 pg (25.0-35.0); MCV 94.7 fL (80.0-100.0); Monocytes # (A) 0.4 k/uL (0-1.0); Monocytes % (A) 5 %; Neutrophils # (A) 5.8 k/uL (1.3-7.7); Neutrophils % (A) 74 %; Platelet Count 207 k/uL (150-450); RBC 4.64 m/uL (4.30-5.90); WBC 7.8 k/uL (3.8-10.6)
[2017-08-28 07:02] LABS: Albumin 2.9 g/dL (3.5-5.0); Calcium 8.5 mg/dL (8.4-10.2); Magnesium 1.7 mg/dL (1.6-2.3); Total Bilirubin 0.6 mg/dL (0.2-1.3); Total Protein 5.2 g/dL (6.3-8.2)
[2017-08-28] MEDS: ATORVASTATIN 40 MG TAB PO SCH (08:01)
[2017-08-28] MEDS: CIPROFLOXACIN HCL 500 MG TAB PO SCH ×2 (08:01→20:33)
[2017-08-28] MEDS: metroNIDAZOLE 500 MG TAB PO SCH ×3 (08:01→20:33)
[2017-08-28] MEDS: ALLOPURINOL 300 MG TAB PO SCH (08:01)
[2017-08-28] MEDS: TAMSULOSIN 0.4 MG CAP.ER.24H PO SCH (08:02)
[2017-08-28] MEDS: HEPARIN SODIUM,PORCINE 5,000 UNIT/ML 1 ML VIAL SQ SCH ×2 (08:02→08:03)
[2017-08-28] MEDS: IPRATROPIUM-ALBUTEROL 3 ML NEB INHALATION SCH ×4 (08:05→19:37)
[2017-08-28] MEDS: SYMBICORT 160-4.5 MCG INHALER INHALATION SCH ×2 (08:14→19:37)
--- NOTE | 2017-08-28 08:46 | P.PN ---
Subjective Patient is seen in follow-up for acute kidney injury. His baseline creatinine is near 1 and elevated at 3.9 today. Patient was noted to have an ileus and had an NG tube in place which was discontinued 3 days ago and he started tolerating regular diet. Denies abdominal pain. NSAIDs have been discontinued. He's also noted to have colitis for which he is maintained on antibiotics per infectious disease recommendations. He was noted to have urinary retention with over 1 L of urine on bladder scan and now has a Bowden catheter in place. He is nonoliguric. Patient denies any chest pain or shortness of breath. Hemodynamically stable. Admits to swelling in his legs. Vital signs are stable. General: The patient appeared well nourished and normally developed. HEENT: Head exam is unremarkable. Neck is without jugular venous distension. LUNGS: Lungs are clear to auscultation and percussion. Breath sounds decreased. HEART: Rate and Rhythm are regular. First and second heart sounds normal. No murmurs, rubs or gallops. ABDOMEN: Abdominal exam reveals normal bowel sounds. Non-tender and non- distended. No evidence of peritonitis. EXTREMITITES: 1+ edema. Objective - Vital Signs Vital signs: Vital Signs Temp 97.3 F L 08/28/17 07:59 Pulse 80 08/28/17 08:17 Resp 18 08/28/17 08:00 BP 164/74 08/28/17 07:59 Pulse Ox 95 08/28/17 07:59 Intake & Output 08/27/17 08/28/17 08/28/17 18:59 06:59 18:59 Intake Total 790 Output Total 2068 1200 Balance -1278 -1200 Weight 131.5 kg Intake: IV 20 Invasive Line 3 20 Intake, IV Titration 60 Amount Sodium Chloride 0.9% 1, 60 000 ml @ 60 mls/hr IV . [id number] [facility] Rx#:[id number] Oral 710 Output: Urine 1100 1200 Straight 1100 Post Void Residual 968 Other: Voiding Method Indwelling Catheter Indwelling Catheter Indwelling Catheter # Voids 0 # Bowel Movements 0 - Labs CBC & Chem 7: 08/28/17 06:22 08/28/17 06:22 Labs: Abnormal Lab Results - Last 24 Hours (Table) 08/27/17 08/27/17 08/27/17 Range/Units 11:45 17:04 21:14 Chloride (98-107) mmol/L Carbon Dioxide (22-30) mmol/L BUN (9-20) mg/dL Creatinine (0.66-1.25) mg/dL Glucose (74-99) mg/dL POC Glucose (mg/dL) 172 H 192 H 119 H (75-99) mg/dL Alkaline Phosphatase (38-126) U/L Total Protein (6.3-8.2) g/dL Albumin (3.5-5.0) g/dL 08/28/17 08/28/17 Range/Units 06:17 06:22 Chloride 95 L (98-107) mmol/L Carbon Dioxide 34 H (22-30) mmol/L BUN 46 H (9-20) mg/dL Creatinine 3.92 H (0.66-1.25) mg/dL Glucose 146 H (74-99) mg/dL POC Glucose (mg/dL) 144 H (75-99) mg/dL Alkaline Phosphatase 136 H (38-126) U/L Total Protein 5.2 L (6.3-8.2) g/dL Albumin 2.9 L (3.5-5.0) g/dL Microbiology - Last 24 Hours (Table) 08/22/17 21:50 Blood Culture - Preliminary Blood No Growth after 120 hours Assessment and Plan Plan: Assessment: #1. Nonoliguric acute kidney injury secondary to ATN secondary to nonsteroidals and vancomycin use. Urinary retention also contributing factor. Also concern for ALLERGIC interstitial nephritis as his urine eosinophils are 4% . Urinalysis is quite benign. No evidence of hydronephrosis noted on CAT scan. He does have left kidney atrophy. #2. Colitis maintained on antibiotics per infectious disease recommendations. #3. Ileus. Now on a regular diet. Surgery following. #4. Hypernatremia secondary to lack of oral water intake. Improved. #5. Hypokalemia due to poor oral intake and metabolic alkalosis status post replacement. Magnesium replete. #6. Acute hypercapnic respiratory failure. Improved. #7. Insulin-dependent diabetes mellitus. #8. History of diastolic CHF. Currently compensated. #9. History of BPH maintained on Flomax. #10. Metabolic alkalosis. Partially compensate for underlying respiratory acidosis. Further worsened from hydrogen losses from NG suction. Improved. #11. Urinary retention status post Bowden catheter placement. Plan: Hep-Lock IV fluids. Lasix 40 mg IV once today. Avoid nephrotoxic agents and hypotensive episodes. Toradol and vancomycin has been discontinued. Maintain Bowden catheter for now. Maintain Flomax. Repeat electrolytes in the morning. Due to worsening renal function and positive urine eosinophils, I will give him a trial of steroids. I will start him on prednisone 40 mg once daily. Also discussed with the nurse if Protonix can be switched over to Pepcid.
[2017-08-28] MEDS ORDERED: FUROSEMIDE 10 MG/ML 4 ML VIAL IV STA (08:47)
[2017-08-28] MEDS: predniSONE 20 MG TAB PO SCH (09:10)
--- NOTE | 2017-08-28 11:21 | P.PN ---
Subjective Progress Note Date: 08/28/17 The patient is feeling much better today, he is up sitting beside his bed, with his son present at bedside. Still complain of episodes of diarrhea despite negative C. diff , denies any subjective fevers or chills. Reports that his breathing is much better currently on nasal cannula at present with a good oxygen saturations and unlabored respirations. Patient does not recall the stated ALLERGY to iodine, despite it being listed on his ALLERGY list. He has been doing well with diabetic diet without any nausea or abdominal pain. Otherwise no acute events overnight Objective - Vital Signs Vital signs: Vital Signs Temp 97.3 F L 08/28/17 07:59 Pulse 80 08/28/17 08:17 Resp 18 08/28/17 08:00 BP 164/74 08/28/17 07:59 Pulse Ox 95 08/28/17 07:59 Intake & Output 08/27/17 08/28/17 08/28/17 18:59 06:59 18:59 Intake Total 790 Output Total 2068 1200 Balance -1278 -1200 Weight 131.5 kg Intake: IV 20 Invasive Line 3 20 Intake, IV Titration 60 Amount Sodium Chloride 0.9% 1, 60 000 ml @ 60 mls/hr IV . [id number] [facility] Rx#:[id number] Oral 710 Output: Urine 1100 1200 Straight 1100 Post Void Residual 968 Other: Voiding Method Indwelling Catheter Indwelling Catheter Indwelling Catheter # Voids 0 # Bowel Movements 0 - Exam Constitutional: No acute distress, conversant, pleasant Eyes: Anicteric sclerae, moist conjunctiva, no lid-lag, PERRLA ENMT: NC/AT,Oropharynx clear, no erythema, exudates Neck:Supple, FROM, no masses, or JVD, No carotid bruits; No thyromegaly Lungs: Diminished with poor air movement diffusely, Clear to percussion, mild respiratory distress tachypneaic on BiPAP Cardiovascular: Heart regular in rate and rhythm, No murmurs, gallops, or rubs no peripheral edema Abdominal: Soft Nontender, nom distended, no guarding, no rebound or rigidity, Normoactive bowel sounds No hepatomegaly, No splenomegaly, No palpable mass No abdominal wall hernia noted Skin: Normal temperature, tone, texture, turgor, No induration No subcutaneous nodules, No rash, lesions, No ulcers Extremities:No digital cyanosis No clubbing, Pedal pulses intact and symmetrical Radial pulses intact and symmetrical Normal gait and station, No calf tenderness Psychiatric: Alert and oriented to person, place and time, Appropriate affect Intact judgement Neuro: Muscles Strength 5/5 in all 4 extremities, Sensation to light touch grossly present throughout, Cranial nerves II-XII grossly intact. No focal sensory deficits - Labs CBC & Chem 7: 08/28/17 06:22 08/28/17 06:22 Labs: Abnormal Lab Results - Last 24 Hours (Table) 08/27/17 08/27/17 08/27/17 Range/Units 11:45 17:04 21:14 Chloride (98-107) mmol/L Carbon Dioxide (22-30) mmol/L BUN (9-20) mg/dL Creatinine (0.66-1.25) mg/dL Glucose (74-99) mg/dL POC Glucose (mg/dL) 172 H 192 H 119 H (75-99) mg/dL Alkaline Phosphatase (38-126) U/L Total Protein (6.3-8.2) g/dL Albumin (3.5-5.0) g/dL 08/28/17 08/28/17 Range/Units 06:17 06:22 Chloride 95 L (98-107) mmol/L Carbon Dioxide 34 H (22-30) mmol/L BUN 46 H (9-20) mg/dL Creatinine 3.92 H (0.66-1.25) mg/dL Glucose 146 H (74-99) mg/dL POC Glucose (mg/dL) 144 H (75-99) mg/dL Alkaline Phosphatase 136 H (38-126) U/L Total Protein 5.2 L (6.3-8.2) g/dL Albumin 2.9 L (3.5-5.0) g/dL Microbiology - Last 24 Hours (Table) 08/22/17 21:50 Blood Culture - Preliminary Blood No Growth after 120 hours Assessment and Plan (1) Acute kidney injury Narrative/Plan: * Patient had a dramatic increase his creatinine from 1.0 --> 2.3 --> 3.12 --> 3.92 * Multifactorial secondary to contrast-induced nephropathy versus medication induced nephropathy superimposed on retention as a patient did receive contrast prior to his CT abdomen and pelvis there appears a patient does have a documented ALLERGY to iodine. Patient did receive 3 doses of vancomycin with trough level at 19 yesterday and also received ongoing IV Toradol for pain ( both have since been discontinued) * Appreciate Dr. Gonzalez's recommendations . Patient started on systemic steroids with prednisone today, will switch from Protonix to Pepcid * Continue to avoid nephrotoxic agents * We'll continue hypotonic solution 1/2 NS at 100 mL an hour Current Visit: Yes Status: Acute Code(s): N17.9 - ACUTE KIDNEY FAILURE, UNSPECIFIED SNOMED Code(s): 14017983 (2) Encephalopathy Narrative/Plan: * resolved likely multifactorial secondary chronic hypoxemic and hypercarbic respiratory failure superimposed on delirium triggered by ongoing hypoxia versus sepsis versus medication induced as patient was previously on narcotics hydrocodone postop * CT of the head only showing old lacunar infarct left external capsule with chronic white matter ischemic changes * Continue with antiplatelet therapy with aspirin 325 mg by mouth daily Current Visit: Yes Status: Resolved Code(s): G93.40 - ENCEPHALOPATHY, UNSPECIFIED SNOMED Code(s): 62441096 (3) Chronic respiratory failure with hypoxia and hypercapnia Narrative/Plan: * Patient requiring decreasing oxygen requirements was stopped off BiPAP and is now on nasal cannula today * Continue on nasal cannula, patient scheduled to have evaluation for home BiPAP with overnight polysomnogram per pulmonary recommendations * Ejection fraction 50-55% on echocardiogram Current Visit: Yes Status: Chronic Code(s): J96.11 - CHRONIC RESPIRATORY FAILURE WITH HYPOXIA; J96.12 - CHRONIC RESPIRATORY FAILURE WITH HYPERCAPNIA SNOMED Code(s): 08205868 (4) Sepsis Narrative/Plan: * Normal white blood cell count with ongoing fevers * CT abdomen and pelvis suggestive of colitis in the ascending and transverse colon on * Appreciate ID recommendations by Dr. Mccullough, Levaquin discontinued continue with Zosyn and Flagyl * Preliminary culture suggestive of a coagulase-negative staph which is likely contaminant * Gen. surgery are already seen the patient and plans conservative management, will appreciate any further recommendations Current Visit: Yes Status: Resolved Code(s): A41.9 - SEPSIS, UNSPECIFIED ORGANISM SNOMED Code(s): 52227600 (5) Infective colitis Narrative/Plan: * Treatment as above Current Visit: Yes Status: Acute Code(s): A09 - INFECTIOUS GASTROENTERITIS AND COLITIS, UNSPECIFIED SNOMED Code(s): 11688194 (6) Type 2 diabetes mellitus with hyperglycemia Narrative/Plan: * Continue to monitor blood sugars they are elevated continue correctional scale regimen * A1c is 7.4 Current Visit: Yes Status: Acute Code(s): E11.65 - TYPE 2 DIABETES MELLITUS WITH HYPERGLYCEMIA SNOMED Code(s): 201608293641599 (7) Ileus Narrative/Plan: * Tolerating diabetic diet well Current Visit: Yes Status: Resolved Code(s): K56.7 - ILEUS, UNSPECIFIED SNOMED Code(s): 426747356 (8) BPH w urinary obs/LUTS Narrative/Plan: * Continue Flomax to 0.4 mg by mouth twice a day Current Visit: Yes Status: Acute Code(s): N40.1 - BENIGN PROSTATIC HYPERPLASIA WITH LOWER URINARY TRACT SYMP; N13.8 - OTHER OBSTRUCTIVE AND REFLUX UROPATHY SNOMED Code(s): 373905782
[2017-08-28 11:52] LABS: Glucose,Whole Blood 180 mg/dL (75-99)
--- NOTE | 2017-08-28 11:52 | P.PN ---
Subjective Progress Note Date: 08/28/17 Principal diagnosis: Acute on chronic hypoxic and hypercapnic respiratory failure following repair of umbilical hernia secondary to underlying COPD and obstructive sleep apnea syndrome. This 66-year-old male patient has COPD, chronic hypoxic and hypercapnic respiratory failure however has not had any adequate follow-up in terms of his pulmonary condition. He states that he has not been maintained on oxygen even. He smokes on a regular basis 1 pack of cigarettes a day. He underwent a recent abdominal wall hernia repair and he was discharged home on oxycodone. Surgery went fine and the patient did not have any immediate postoperative complications. The patient subsequently started developing some hallucination. He was able to see images of family members coming in visiting him and he had some auditory hallucinations. Denies having any chest pain. No cough or sputum production. No hemoptysis or pleurisy. No swelling lower extremities. No abdominal pain. Surgical wound site over the abdominal wall is dry clean and intact. No fever or chills. He came into the emergency room her chest x- ray was done and the blood gases was done. The chest x-ray reveals cardiomegaly along with some mild pulmonary vessel congestion and the blood gases showed a pH of 7.37 with a pCO2 of 63 and pO2 of 63 and this was on FiO2 of 28% consistent with chronic hypoxic and hypercapnic respiratory failure. He denies having any respiratory difficulties. No nausea vomiting or abdominal pain. No 70 psychiatric history. Most of depression perhistory of schizophrenia. He is diabetic. He also has history of BPH. He is obese. No 70 CPAP therapy at home. No 70 documented sleep breathing disorder. The patient's CPK is 1300. The troponin is a 0.02. Urinalysis negative. Urine drug screen is positive for opiates. EKG was showing sinus tachycardia type of admission with a heart rate of 125 and some nonspecific T-wave changes. The patient had a CAT scan of the brain was also negative. There is evidence of old lacunar infarct in the external capsule on the left and chronic white matter ischemic changes. On 08/23/2017 I'm seeing this patient for a follow-up. He is resting comfortably in bed. I was able to witness some apneas that was occurring while the patient was sleeping. It happened at a time when I came in to evaluate this patient and the patient was taken a nap and is obvious that the patient is having apneas. As such the patient has likely an underlying obstructive sleep apnea in addition to COPD contributing to his chronic hypercapnic respiratory failure. The patient also has chronic hypoxic respiratory failure. He was easily arousable. He does not have any hallucinations over the past 24 hours. He was having episodes of fever. He was also noted to have a run of atrial fibrillation which converted back to normal sinus rhythm. For that reason, cardiology was consulted and general surgery will be also evaluating the patient regarding his most recent hernia repair. There is some erythema over the anterior abdominal wall which raises the suspicion for an underlying abdominal wall cellulitis/infection. No drainage from the surgical wound site. Patient denies having any cough or sputum production. No chest pain. He is tolerating his diet. No nausea or vomiting. A lengthy discussion with the son who tells me that the patient has been in a poor health over the past 2 years. He has been sleeping a lot and he spends most of the time in bed and is been essentially sedentary. He is a chronic smoker. Probably chronic hypoxic yet he hasn't been using any form of respiratory medications are oxygen therapy. Cardiology will be also evaluating this patient today. His T-max was 100.4 Patient was reevaluated today on 08/24/2017, he is still on BiPAP, his ABG is acceptable with adequate metabolic compensation for his respiratory acidosis. Patient is complaining about his BiPAP, however I will try to intermittently use high flow nasal cannula alternating with BiPAP. Clinically, the patient does have COPD with chronic hypoxic and hypercapnic respiratory failure. Apparently this was not manifested clearly until his recent admission to the hospital following his hernia repair. Apparently he was having intermittent episodes of hallucinations post surgery. ABG on BiPAP today showed a pO2 of 68 pCO2 of 68 pH of 7.40. CBC was normal. Basic metabolic profile is normal with bicarb of 40 which is expected considering his chronic hypercapnic respiratory failure. The patient is seen again today 08/25/2017 in follow-up on the selective care unit. He is currently sitting up in bed. He is awake and alert in no acute distress. He has been wearing his BiPAP throughout the evening. Maintaining good O2 sat saturations in the upper 90s on 50% FiO2. Maintained on Symbicort and DuoNeb's. He's been afebrile. Computed tomography scan of the abdomen showed evidence of right colon colitis. Nasogastric tube is in place. Over 500 mls dark fluid out today thus far. He remains on metronidazole, Zosyn and vancomycin. Remains on IV Protonix. White count 10.5. Hemoglobin 15.7. Sodium 153. Bicarb 42. Creatinine 1.00 Reevaluated today on 08/26/2017, patient seems to be doing much better, he is asymptomatic, has been using his BiPAP at night, and has been doing great with the BiPAP. We'll try if we could qualify the patient for BiPAP at home. Otherwise he may require a sleep study on outpatient basis to get him qualified for BiPAP. In the meantime he is maintained on bronchodilators. He did develop hypernatremia secondary to free water deficit, and that is being addressed by nephrology. The patient is seen again today 08/27/2017 in follow-up on the selective care unit. He is awake and alert in no acute distress. He is breathing easier today as compared to yesterday. He did utilize the BiPAP last night. He states he is becoming more comfortable with it and it does seem to be helping. We are hoping to qualify him for home BiPAP. He is currently maintaining O2 saturations in the mid 90s on 5 L high flow nasal cannula. He is afebrile. Hemodynamically stable. Creatinine 3.12. The patient required a straight cath yesterday and over a liter of urine was returned. Bowden catheter today. Stool cultures pending. Patient was reevaluated today on 08/28/2017, doing extremely well from the pulmonary perspective as long as he is using the BiPAP at night, and he is using oxygen during the day. Remains on a high flow nasal cannula, patient does have severe COPD, and most likely has underlying obstructive sleep apnea syndrome. Labs were reviewed today his BUN is 46 creatinine is 3.92, this seems to be gradually getting worse. Patient remains nonoliguric, and it was felt that the patient developed acute kidney injury secondary to ATN possibly secondary to nonsteroidal anti-inflammatory medications and vancomycin. Considering that the urinalysis revealed 4% eosinophils, possibility of interstitial nephritis is to be considered. This is being addressed by nephrology on the case. Objective - Vital Signs Vital signs: Vital Signs Temp 97.3 F L 08/28/17 07:59 Pulse 80 08/28/17 08:17 Resp 18 08/28/17 08:00 BP 164/74 08/28/17 07:59 Pulse Ox 95 08/28/17 07:59 Intake & Output 08/27/17 08/28/17 08/28/17 18:59 06:59 18:59 Intake Total 790 Output Total 2068 1200 Balance -1278 -1200 Weight 131.5 kg Intake: IV 20 Invasive Line 3 20 Intake, IV Titration 60 Amount Sodium Chloride 0.9% 1, 60 000 ml @ 60 mls/hr IV . [id number] [facility] Rx#:[id number] Oral 710 Output: Urine 1100 1200 Straight 1100 Post Void Residual 968 Other: Voiding Method Indwelling Catheter Indwelling Catheter Indwelling Catheter # Voids 0 # Bowel Movements 0 - Exam Physical Exam: Revealed a 66-year-old white male in no distress, on high flow nasal cannula 5 L Head: Atraumatic, normocephalic. Eyes: PERRLA, EOMI, no icterus. HEENT:[Neck is supple.] [No neck masses.] [No thyromegaly.] [No JVD.] Nasogastric tube is in place. Chest: [Diminished breath sounds at the bases, no crackles or rhonchi or wheezes , patient does have a barrel chest.] Cardiac Exam: [Normal S1 and S2, no S3 gallop, no murmur.] Abdomen: [Postsurgical, some redness noted in the periumbilical area, could be related to her cellulitis of the abdominal wall. No rebound, no guarding. As the bowel sounds. Extremities: [No clubbing, no edema, no cyanosis.] Neurological Exam: [No focal neurologic deficit.] Psychiatric: Normal mood affect and mental status examination. Lymphatics: No lymphadenopathy. - Labs CBC & Chem 7: 08/28/17 06:22 08/28/17 06:22 Labs: Abnormal Lab Results - Last 24 Hours (Table) 08/27/17 08/27/17 08/27/17 Range/Units 11:45 17:04 21:14 Chloride (98-107) mmol/L Carbon Dioxide (22-30) mmol/L BUN (9-20) mg/dL Creatinine (0.66-1.25) mg/dL Glucose (74-99) mg/dL POC Glucose (mg/dL) 172 H 192 H 119 H (75-99) mg/dL Alkaline Phosphatase (38-126) U/L Total Protein (6.3-8.2) g/dL Albumin (3.5-5.0) g/dL 08/28/17 08/28/17 Range/Units 06:17 06:22 Chloride 95 L (98-107) mmol/L Carbon Dioxide 34 H (22-30) mmol/L BUN 46 H (9-20) mg/dL Creatinine 3.92 H (0.66-1.25) mg/dL Glucose 146 H (74-99) mg/dL POC Glucose (mg/dL) 144 H (75-99) mg/dL Alkaline Phosphatase 136 H (38-126) U/L Total Protein 5.2 L (6.3-8.2) g/dL Albumin 2.9 L (3.5-5.0) g/dL Microbiology - Last 24 Hours (Table) 08/22/17 21:50 Blood Culture - Preliminary Blood No Growth after 120 hours Assessment and Plan Assessment: 1 Acute on chronic hypoxic and hypercapnic respiratory failure secondary to severe COPD 2 postoperative hallucination most likely secondary to metabolic encephalopathy with relative hypoxia and hypercapnia. Again that is acute on chronic. Fever could be another contributing factor to his hallucination. 3 episodic fever currently under investigation. Computed tomography scan of the abdomen revealed a right colon colitis. That is being addressed by surgery on the case. 4 lacunar stroke based on the CAT scan findings 5 umbilical hernia repair 6 smoker 7 hypertension 8 diabetes mellitus 9 paroxysmal atrial fibrillation, awaiting a cardiology evaluation 10 hypernatremia, resolved 11 acute nonoliguric acute kidney injury felt to be secondary to nonsteroidal anti-inflammatory drugs and vancomycin. Being addressed by nephrology on the case. 12 suspect severe obstructive sleep apnea syndrome. Recommendation: Continue present treatment plan, continue bronchodilators, BiPAP as needed especially at night, hopefully he qualifies for BiPAP at home, otherwise we'll have to have a sleep study on outpatient basis. From the pulmonary perspective, patient could be considered for discharge planning, however his real issue seems to be a new issue that being addressed by nephrology at this point. We'll continue to follow and the patient will have follow-up with us in our office for his severe COPD and obstructive sleep apnea workup in the future. Time with Patient: Less than 30
--- NOTE | 2017-08-28 13:32 | P.PN ---
Progress Note - Text Progress Note Date: 08/28/17 Patient denies any significant abdominal pain. On exam his vital signs are stable. His abdomen soft. Patient has no developing related to his previous ventral hernia repair. He is being treated for his acute renal failure. No surgical intervention is planned. We will sign off and see him in the office once he has been discharged.
--- NOTE | 2017-08-28 14:31 | P.PN ---
Subjective Progress Note Date: 08/28/17 This is a 66-year-old gentleman admitted to the hospital with mental status changes. He recently underwent herniography and came back with hallucinations. Patient has known history of chronic tobacco use, hypertension, hyperlipidemia , diabetes, home O2, severe COPD, sleep apnea. Patient did have an episode of atrial fibrillation and converted back to normal sinus rhythm. This morning and 18 was called on the patient, he was quite hypoxic and short of breath. Through the night last night, patient also had a loss of bowel sounds and was having diarrhea for this reason an NG tube had been placed. At the time of our examination later in the morning, blood pressure 170/80 with a heart rate in the 90s, 93% on 4 L of oxygen. Patient has been initiated on Xarelto 20 mg daily, we will discontinue the full aspirin that he is on. A cardiogram with Doppler study was performed which revealed an ejection fraction of 50-55%. Patient was also running low-grade fevers through the night and this morning. A computed tomography scan of the abdomen was performed which revealed some bowel wall thickening with ascending and transverse colon compatible with colitis. Fat attenuated stricture along the antimesenteric border of the transverse colon with surrounding inflammatory fat stranding this could relate to omental infarct or appendicitis. Small right pleural effusion also noted. 08/25/2017 Patient seen and examined this morning, remaining in normal sinus rhythm. 95% on 5 L of oxygen today. Blood pressure 138/70, heart rate in the 80s. Sodium 153, potassium 3.2, BUN 30, creatinine 1.0. We will discontinue the Lovenox today and start the patient on Eliquis. 08/26/2017. Patient seen and examined this morning, remaining in a normal sinus rhythm. Hemodynamically stable. NG tube has been removed. Breathing overall is significantly improved. Blood pressure 154/80 with a heart rate in the 70s, 92 % on 5 L high flow. Sodium 143, potassium 3.6, BUN 38, creatinine 2.3. Yesterday's creatinine 1.0. Patient was on lisinopril which has been discontinued, Xarelto continues to be on hold and patient is on Lovenox. We will gently hydrate the patient today check lytes BUN and creatinine in the morning. 08/27/2017 Patient seen and examined this morning, remaining in normal sinus rhythm, blood pressure and heart rate stable. Continues to be on subcu heparin. Creatinine up to 3.1 today, potassium 3.4. Patient is covered for xarelto, we will also check into coverage with Eliquis. We may have to adjust the dose based on his kidney function, at this time we will continue with the subcu heparin. 08/28/2017 Patient seen and examined this morning, sitting up in the chair at bedside. Overall looking significantly better today. BUN today is up to 46 and creatinine 3.9. Patient is noted to have blood in his urine today. Hence the patient had a limited episode of atrial fibrillation, we will discontinue the heparin, and not initiate anticoagulation at this time. Objective - Vital Signs Vital signs: Vital Signs Temp 97.3 F L 08/28/17 07:59 Pulse 80 08/28/17 12:07 Resp 17 08/28/17 12:00 BP 166/77 08/28/17 12:00 Pulse Ox 97 08/28/17 12:00 Intake & Output 08/27/17 08/28/17 08/28/17 18:59 06:59 18:59 Intake Total 790 118 Output Total 2068 1200 Balance -1278 -1200 118 Weight 131.5 kg Intake: IV 20 Invasive Line 3 20 Intake, IV Titration 60 Amount Sodium Chloride 0.9% 1, 60 000 ml @ 60 mls/hr IV . [id number] WILLIAM Rx#:[id number] Oral 710 118 Output: Urine 1100 1200 Straight 1100 Post Void Residual 968 Other: Voiding Method Indwelling Catheter Indwelling Catheter Indwelling Catheter # Voids 0 # Bowel Movements 0 2 - Exam PHYSICAL EXAMINATION: HEENT: Head is atraumatic, normocephalic. Pupils equal, round. Neck is supple. There is no elevated jugular venous pressure. NG tube in place. HEART EXAMINATION: Heart S1, S2 normal. No murmur or gallop heard. CHEST EXAMINATION: Lungs reveal diminished breath sounds to the bases, patient does have a barrel chest ABDOMEN: Soft, nontender. Bowel sounds are heard. No organomegaly noted. EXTREMITIES: 2+ peripheral pulses with no evidence of peripheral edema and no calf tenderness noted. NEUROLOGIC patient is awake, alert and oriented -3. . - Labs CBC & Chem 7: 08/28/17 06:22 08/28/17 06:22 Labs: Abnormal Lab Results - Last 24 Hours (Table) 08/27/17 08/27/17 08/28/17 Range/Units 17:04 21:14 06:17 Chloride (98-107) mmol/L Carbon Dioxide (22-30) mmol/L BUN (9-20) mg/dL Creatinine (0.66-1.25) mg/dL Glucose (74-99) mg/dL POC Glucose (mg/dL) 192 H 119 H 144 H (75-99) mg/dL Alkaline Phosphatase (38-126) U/L Total Protein (6.3-8.2) g/dL Albumin (3.5-5.0) g/dL 08/28/17 08/28/17 Range/Units 06:22 11:48 Chloride 95 L (98-107) mmol/L Carbon Dioxide 34 H (22-30) mmol/L BUN 46 H (9-20) mg/dL Creatinine 3.92 H (0.66-1.25) mg/dL Glucose 146 H (74-99) mg/dL POC Glucose (mg/dL) 180 H (75-99) mg/dL Alkaline Phosphatase 136 H (38-126) U/L Total Protein 5.2 L (6.3-8.2) g/dL Albumin 2.9 L (3.5-5.0) g/dL Microbiology - Last 24 Hours (Table) 08/22/17 21:50 Blood Culture - Preliminary Blood No Growth after 120 hours Assessment and Plan Plan: Assessment and plan i #1 mental status changes, could be secondary to chronic hypoxemia and hypercapnia #2 paroxysmal atrial fibrillation #3 status post recent herniorrhaphy #4 hypertension # 5 hyperlipidemia #6 diabetes #7 COPD #8 sleep apnea #9 fever, rule out abdominal wall infection. #10 infective colitis #11 worsening renal function Plan We will discontinue the subcu heparin, continue the rest of the medications. Since the patient's episode of atrial fibrillation was limited, we will not initiate anticoagulation at this time. We will follow this patient with you now on an as-needed basis only, please don't hesitate to call with any questions. A follow-up appointment will be made in the office with Dr. Cardoza post discharge. DNP note has been reviewed, I agree with a documented findings and plan of care. Patient was seen and examined.
[2017-08-28 14:52] VITALS: BMI 41.5
[2017-08-28 16:55] LABS: Glucose,Whole Blood 246 mg/dL (75-99)
[2017-08-28] MEDS: FAMOTIDINE 20 MG TAB PO SCH (20:33)
[2017-08-28 20:56] LABS: Glucose,Whole Blood 262 mg/dL (75-99)
--- NOTE | 2017-08-28 23:50 | PN ---
PROGRESS NOTE DATE OF SERVICE: 08/28/2017 REASON FOR FOLLOWUP: Colitis. INTERVAL HISTORY: The patient is afebrile. He has been breathing comfortably. Denies having any chest pain or shortness of breath or cough. No abdominal pain. Had some diarrhea, about 2-3 times today. EXAMINATION: Blood pressure is 158/70 with a pulse of 70, temperature of 97.8. He is 96% on 2L nasal cannula. General description is an elderly male, up in the bed in no distress. RESPIRATORY SYSTEM: Unlabored breathing with decreased breath sounds in the bases. No wheeze. HEART: S1, S2. Regular rate and rhythm. ABDOMEN: Soft. No tenderness. LABS: Hemoglobin is 14.5, white count 7.8. BUN of 46, creatinine 3.92. Stool culture so far pending. Stool for C. diff. negative. DIAGNOSTIC IMPRESSION AND PLAN: 1. Patient with a positive blood culture, Staphylococcus epidermidis, contamination, off antibiotic. Blood culture has been negative. 2. Patient with evidence of colitis on the CT. Stool cultures pending. Clostridium difficile was negative. Currently on Cipro and Flagyl. Will add Questran for symptomatic relief. Continue supportive care. MMODL / IJN: [id number] /
[2017-08-29 06:04] LABS: Glucose,Whole Blood 169 mg/dL (75-99)
[2017-08-29] MEDS: CARVEDILOL 12.5 MG TAB PO SCH ×2 (06:18→17:23)
[2017-08-29] MEDS: INSULIN ASPART 100 UNIT/ML 1 ML 10 ML VIAL SQ SCH ×4 (06:20→21:29)
[2017-08-29 07:05] LABS: Albumin 2.9 g/dL (3.5-5.0); Calcium 8.5 mg/dL (8.4-10.2); Magnesium 1.7 mg/dL (1.6-2.3); Potassium 4.1 mmol/L (3.5-5.1); Total Bilirubin 0.5 mg/dL (0.2-1.3); Total Protein 5.1 g/dL (6.3-8.2)
[2017-08-29] MEDS: SYMBICORT 160-4.5 MCG INHALER INHALATION SCH ×2 (07:49→20:42)
[2017-08-29] MEDS: IPRATROPIUM-ALBUTEROL 3 ML NEB INHALATION SCH ×4 (07:49→20:42)
[2017-08-29] MEDS: FAMOTIDINE 20 MG TAB PO SCH ×2 (08:38→21:28)
[2017-08-29] MEDS: ALLOPURINOL 300 MG TAB PO SCH (08:38)
[2017-08-29] MEDS: predniSONE 20 MG TAB PO SCH (08:38)
[2017-08-29] MEDS: metroNIDAZOLE 500 MG TAB PO SCH ×3 (08:38→21:28)
[2017-08-29] MEDS: TAMSULOSIN 0.4 MG CAP.ER.24H PO SCH (08:38)
[2017-08-29] MEDS: ATORVASTATIN 40 MG TAB PO SCH (08:38)
[2017-08-29] MEDS: CIPROFLOXACIN HCL 500 MG TAB PO SCH ×2 (08:38→21:28)
[2017-08-29] MEDS: traMADol 50 MG TAB PO SCH ×4 (08:38→21:29)
--- NOTE | 2017-08-29 10:01 | P.PN ---
Subjective Progress Note Date: 08/29/17 Principal diagnosis: This is a 66-year-old obese male who is seen in consultation because of acute kidney injury secondary to a combination off nonsteroidals vancomycin and urinary retention. He was admitted with colitis which is deemed to be infectious and is on antibiotics for this. He does have chronic kidney disease based on a computed tomography scan which shows left atrophy kidney. In the background she is known with severe COPD sleep apnea diabetes hypertension atrial fibrillation in the past. Currently his diarrhea is completely resolved with 1 or 2 formed stools. No nausea vomiting is able to stand up and walk around no dizziness. No fever chills no abdominal pain. In spite of this stability his urine output has gone down and his creatinine is creeping up. His creatinine went up from 3.9-4.32 this morning. He is oliguric. He does have eosinophilia in the urine with 11 RBCs 4 eos and was started on prednisone yesterday. He also received 1 dose of Lasix yesterday. Objective - Vital Signs Vital signs: Vital Signs Temp 97.9 F 08/29/17 08:38 Pulse 84 08/29/17 08:38 Resp 18 08/29/17 08:38 BP 141/68 08/29/17 08:38 Pulse Ox 91 L 08/29/17 08:38 Intake & Output 08/28/17 08/29/17 08/29/17 18:59 06:59 18:59 Intake Total 318 600 480 Output Total 1300 Balance 318 -700 480 Weight 131.5 kg 133.2 kg Intake: Oral 318 600 480 Output: Urine 1300 Straight 1300 Other: Voiding Method Indwelling Catheter Indwelling Catheter Indwelling Catheter # Voids 1 # Bowel Movements 2 On examination of awake alert oriented comfortable sitting by the bedside. HEENT exam no JVP neck is supple no facial asymmetry Lungs are significant for diminished air entry bilaterally significantly and occasional coarse crackles. Heart sounds are unremarkable for any murmur rub gallop abdomen is obese protuberant but nontender Extremity exam reveals 1-2+ edema chronically and patient wears supposedly some compression stockings at home. Neurologically awake alert oriented. He has a Bowden catheter is draining small amounts of bloody mildly tinged urine. - Labs CBC & Chem 7: 08/28/17 06:22 08/29/17 06:24 Labs: Abnormal Lab Results - Last 24 Hours (Table) 0408/28/17 08/28/17 Range/Units 11:48 16:45 20:54 Chloride (98-107) mmol/L Carbon Dioxide (22-30) mmol/L BUN (9-20) mg/dL Creatinine (0.66-1.25) mg/dL Glucose (74-99) mg/dL POC Glucose (mg/dL) 180 H 246 H 262 H (75-99) mg/dL Alkaline Phosphatase (38-126) U/L Total Protein (6.3-8.2) g/dL Albumin (3.5-5.0) g/dL 08/29/17 08/29/17 Range/Units 06:00 06:24 Chloride 95 L (98-107) mmol/L Carbon Dioxide 32 H (22-30) mmol/L BUN 56 H (9-20) mg/dL Creatinine 4.32 H (0.66-1.25) mg/dL Glucose 176 H (74-99) mg/dL POC Glucose (mg/dL) 169 H (75-99) mg/dL Alkaline Phosphatase 144 H (38-126) U/L Total Protein 5.1 L (6.3-8.2) g/dL Albumin 2.9 L (3.5-5.0) g/dL Microbiology - Last 24 Hours (Table) 08/22/17 21:50 Blood Culture - Final Blood No Growth after 144 hours 08/26/17 10:00 Stool Culture - Preliminary Stool Assessment and Plan Assessment: Impression 1. Acute kidney injury from a combination of vancomycin and nonsteroidals as well as possible element of prerenal. Additionally with acute interstitial nephritis is a possibility based on urine RBCs and urine eosinophils. Worsening creatinine and diminished urine output. He might require dialysis for a few days to titrate him over until his renal function recovers. Patient is on prednisone 40 mg daily started 08/28/2017 yesterday 2. Mild degree of metabolic alkalosis from combination of Lasix and steroids and possibly as a compensate 3 mechanism for his respiratory acidosis because of COPD, as we don't have an blood gas therefore this is an assumption. His last blood gases dated 08/24/2017 show pH of 7.4 and a pCO2 of 68 This is improving 3. Severe COPD. 4. Mild to moderate edema Recommendations. 1. Maintain prednisone for possible acute interstitial nephritis. 2. Expecting renal recovery from the acute injury from medications, Vanco and nonsteroidals. Hoping to avert need for dialysis. 3. Monitor labs, 4. Will continue to follow closely., No need for urgent dialysis right now
[2017-08-29 11:43] LABS: Glucose,Whole Blood 210 mg/dL (75-99)
[2017-08-29] MEDS ORDERED: SODIUM CHLORIDE 0.9% 500 ML IV ONE (12:04)
--- NOTE | 2017-08-29 12:43 | P.PN ---
Subjective Progress Note Date: 08/29/17 (deayed charting seen at 0915) Principal diagnosis: abdominal pain, colitis Patient is a 66-year-old male with a past medical history of COPD, diabetes, hypertension, and tobacco abuse who presented to the ER with altered mentation and hallucinations. He underwent an extensive evaluation. At that point in time he was found hypercarbia and altered mentation. He underwent a head CT which was negative. EKG showed sinus tachycardia without significant ST -T wave changes. His urinalysis was negative. CPK was slightly elevated. It was felt that this could be due to CO2 retention. He is admitted for further monitoring and care. He was seen by pulmonary who recommended continuing with his supplemental oxygenation, incentive spirometer, and bronchodilators around the clock. They also started him on Lasix. On the night after admission we were called by nursing because the patient had not had a bowel movement or urine output and felt very fatigued. It was felt that he had possible postop ileus from overuse of [place]. Is also noted to have an elevated CPK and acute kidney injury secondary to lack of urine output for over 6 hours. He did spike a fever. At that point in time he was started on IV fluids. Blood culture, urine culture, and abdominal CAT scan were ordered. He then went into A. fib with RVR early on the morning of which converted spontaneously to normal sinus rhythm after a bowel movement. He was seen by pulmonary and was noted to have apneic episode. They're recommending sleep study and placement on BiPAP as needed. He did not have any hallucinations after admission. On 08/[address] of the abdomen and pelvis which showed colitis likely infectious. There was concern for possible sepsis. Infectious disease was consulted and he was placed on vancomycin and Zosyn and Flagyl. Vancomycin was eventually discontinued after blood cultures came back with 1 positive for staph epidermidis. He also had an NG tube placed for possible ileus. Due to aggressive IV fluid rehydration he developed hypernatremia and he was therefore transitioned to normal saline. Cardiology was consulted for his episode of A. fib and recommended an echocardiogram and possible anticoagulation. He was continued to monitor on telemetry. His nasogastric tube was able to be discontinued on 424. On 08/26 he started developing acute kidney injury and nephrology was consulted. A Bowden was placed due to low urine output. Nephrology was consulted. His antibiotics were also transitioned to Cipro and Flagyl at that point in time. Despite IV fluids and diuresis will his creatinine continued to increase. His blood pressure remained stable. He was noted to have positive urine eosinophils was therefore started on steroids. His echocardiogram was unrevealing. He did not develop any other additional episodes of A. fib and therefore was determined he will not need chronic anticoagulation. His creatinine continued to rise through 08/29. Patient seen and examined at bedside. He states he is feeling well. He only had 2 episodes of loose stools yesterday. He denies any abdominal pain. No nausea or vomiting. No chest pain or shortness of breath but he does note some edema. No other complaints currently. He states he is winded while walking. We discussed that his creatinine is continuing to rise that he will not be able to go home until his creatinine stabilizes Objective - Vital Signs Vital signs: Vital Signs Temp 96.8 F L 08/29/17 11:34 Pulse 83 08/29/17 11:39 Resp 16 08/29/17 11:39 BP 165/75 08/29/17 11:34 Pulse Ox 95 08/29/17 11:34 Intake & Output 08/28/17 08/29/17 08/29/17 18:59 06:59 18:59 Intake Total 318 600 480 Output Total 1300 Balance 318 -700 480 Weight 131.5 kg 133.2 kg Intake: Oral 318 600 480 Output: Urine 1300 Straight 1300 Other: Voiding Method Indwelling Catheter Indwelling Catheter Indwelling Catheter # Voids 1 # Bowel Movements 2 - Exam General: Nontoxic, no distress, appears at stated age, obese Derm: warm, dry Head: atraumatic, normocephalic, symmetric Eyes: EOMI, no lid lag, anicteric sclera Mouth: no lip lesion, mucus membranes moist Cardiovascular: S1S2 reg, no murmur, positive posterior tibial pulse bilateral, Lungs: Decreased breath sounds bilateral, no rhonchi, no rales , no accessory muscle use Abdominal: soft, nontender to palpation, no guarding, no appreciable organomegaly Ext: no gross muscle atrophy, 2+ edema, no contractures Neuro: CN II-XI grossly intact, no focal neuro deficits Psych: Alert, oriented, appropriate affect - Labs CBC & Chem 7: 08/28/17 06:22 08/29/17 06:24 Labs: Abnormal Lab Results - Last 24 Hours (Table) 08/28/17 08/28/17 08/29/17 Range/Units 16:45 20:54 06:00 Chloride (98-107) mmol/L Carbon Dioxide (22-30) mmol/L BUN (9-20) mg/dL Creatinine (0.66-1.25) mg/dL Glucose (74-99) mg/dL POC Glucose (mg/dL) 246 H 262 H 169 H (75-99) mg/dL Alkaline Phosphatase (38-126) U/L Total Protein (6.3-8.2) g/dL Albumin (3.5-5.0) g/dL 08/29/17 08/29/17 Range/Units 06:24 11:41 Chloride 95 L (98-107) mmol/L Carbon Dioxide 32 H (22-30) mmol/L BUN 56 H (9-20) mg/dL Creatinine 4.32 H (0.66-1.25) mg/dL Glucose 176 H (74-99) mg/dL POC Glucose (mg/dL) 210 H (75-99) mg/dL Alkaline Phosphatase 144 H (38-126) U/L Total Protein 5.1 L (6.3-8.2) g/dL Albumin 2.9 L (3.5-5.0) g/dL Microbiology - Last 24 Hours (Table) 08/22/17 21:50 Blood Culture - Final Blood No Growth after 144 hours 08/26/17 10:00 Stool Culture - Preliminary Stool Assessment and Plan Assessment: Acute kidney injury with Oliguira, possible ATN -Maintain Bowden catheter -Avoid nephrotoxic agents -Nephrology recommendations, continue with prednisone, may need dialysis -Monitor renal function daily -Atrophy left kidney noted on CAT scan - follow urine output closely Hematuria -Suspected due to Bowden catheter use -Monitor signs of hematuria -If worsens then will need continuous bladder irrigation - recheck urine to ensure no infection -Had received 1 dose of Xarelto on 08/23. -Heparin and ASA on hold Colitis -Infectious disease recommendations appreciated -Continue with Cipro and Flagyl -Supportive care -C. diff negative -Stool cultures pending Severe COPD with possible underlying obstructive sleep apnea -Pulmonary recommendations -Overnight pulse oximetry is consistent with needing BiPAP therapy however due to patient's worsening creatinine he'll not be discharged home and this test will need to be repeated later in his hospitalization -Continue with Symbicort, DuoNeb, when necessary bronchodilators -Continue with steroid wean Recent ventral hernia surgery repair -Surgery has signed off case Paroxysmal atrial fibrillation -Has maintained normal sinus rhythm -Cardiology recommendations appreciated -No need for anticoagulation at discharge - Follow-up with Dr. Cardoza at discharge Diabetes mellitus type 2 -Follow blood sugars, insulin sliding scale -Metformin, glipizide on hold -Resume Levemir but start at 15 units nightly -Hemoglobin A1c 7.4 BPH -Flomax daily Toxic metabolic encephalopathy, resolved Hypernatremia, resolved Sepsis ruled out DVT prophylaxis: SCDs Discussed with: Patient, nursing, Nephro Anticipated discharge: 3-[address]: home vs detention A total of 45 minutes was spent on the care of this complex patient more than 50 % of the time was spent in counseling and care coordination.
[2017-08-29] MEDS ORDERED: BUMETANIDE 0.25 MG/ML 4 ML VIAL IVP STA ×2 (14:23→14:33)
--- NOTE | 2017-08-29 14:50 | P.PN ---
Subjective Progress Note Date: 08/29/17 Principal diagnosis: Acute on chronic hypoxic and hypercapnic respiratory failure with recent episode of hallucinations following repair of umbilical hernia. This 66-year-old male patient has COPD, chronic hypoxic and hypercapnic respiratory failure however has not had any adequate follow-up in terms of his pulmonary condition. He states that he has not been maintained on oxygen even. He smokes on a regular basis 1 pack of cigarettes a day. He underwent a recent abdominal wall hernia repair and he was discharged home on oxycodone. Surgery went fine and the patient did not have any immediate postoperative complications. The patient subsequently started developing some hallucination. He was able to see images of family members coming in visiting him and he had some auditory hallucinations. Denies having any chest pain. No cough or sputum production. No hemoptysis or pleurisy. No swelling lower extremities. No abdominal pain. Surgical wound site over the abdominal wall is dry clean and intact. No fever or chills. He came into the emergency room her chest x- ray was done and the blood gases was done. The chest x-ray reveals cardiomegaly along with some mild pulmonary vessel congestion and the blood gases showed a pH of 7.37 with a pCO2 of 63 and pO2 of 63 and this was on FiO2 of 28% consistent with chronic hypoxic and hypercapnic respiratory failure. He denies having any respiratory difficulties. No nausea vomiting or abdominal pain. No 70 psychiatric history. Most of depression perhistory of schizophrenia. He is diabetic. He also has history of BPH. He is obese. No 70 CPAP therapy at home. No 70 documented sleep breathing disorder. The patient's CPK is 1300. The troponin is a 0.02. Urinalysis negative. Urine drug screen is positive for opiates. EKG was showing sinus tachycardia type of admission with a heart rate of 125 and some nonspecific T-wave changes. The patient had a CAT scan of the brain was also negative. There is evidence of old lacunar infarct in the external capsule on the left and chronic white matter ischemic changes. On 08/23/2017 I'm seeing this patient for a follow-up. He is resting comfortably in bed. I was able to witness some apneas that was occurring while the patient was sleeping. It happened at a time when I came in to evaluate this patient and the patient was taken a nap and is obvious that the patient is having apneas. As such the patient has likely an underlying obstructive sleep apnea in addition to COPD contributing to his chronic hypercapnic respiratory failure. The patient also has chronic hypoxic respiratory failure. He was easily arousable. He does not have any hallucinations over the past 24 hours. He was having episodes of fever. He was also noted to have a run of atrial fibrillation which converted back to normal sinus rhythm. For that reason, cardiology was consulted and general surgery will be also evaluating the patient regarding his most recent hernia repair. There is some erythema over the anterior abdominal wall which raises the suspicion for an underlying abdominal wall cellulitis/infection. No drainage from the surgical wound site. Patient denies having any cough or sputum production. No chest pain. He is tolerating his diet. No nausea or vomiting. A lengthy discussion with the son who tells me that the patient has been in a poor health over the past 2 years. He has been sleeping a lot and he spends most of the time in bed and is been essentially sedentary. He is a chronic smoker. Probably chronic hypoxic yet he hasn't been using any form of respiratory medications are oxygen therapy. Cardiology will be also evaluating this patient today. His T-max was 100.4 Patient was reevaluated today on 08/24/2017, he is still on BiPAP, his ABG is acceptable with adequate metabolic compensation for his respiratory acidosis. Patient is complaining about his BiPAP, however I will try to intermittently use high flow nasal cannula alternating with BiPAP. Clinically, the patient does have COPD with chronic hypoxic and hypercapnic respiratory failure. Apparently this was not manifested clearly until his recent admission to the hospital following his hernia repair. Apparently he was having intermittent episodes of hallucinations post surgery. ABG on BiPAP today showed a pO2 of 68 pCO2 of 68 pH of 7.40. CBC was normal. Basic metabolic profile is normal with bicarb of 40 which is expected considering his chronic hypercapnic respiratory failure. The patient is seen again today 08/25/2017 in follow-up on the selective care unit. He is currently sitting up in bed. He is awake and alert in no acute distress. He has been wearing his BiPAP throughout the evening. Maintaining good O2 sat saturations in the upper 90s on 50% FiO2. Maintained on Symbicort and DuoNeb's. He's been afebrile. Computed tomography scan of the abdomen showed evidence of right colon colitis. Nasogastric tube is in place. Over 500 mls dark fluid out today thus far. He remains on metronidazole, Zosyn and vancomycin. Remains on IV Protonix. White count 10.5. Hemoglobin 15.7. Sodium 153. Bicarb 42. Creatinine 1.00. Reevaluated today on 08/26/2017, patient seems to be doing much better, he is asymptomatic, has been using his BiPAP at night, and has been doing great with the BiPAP. We'll try if we could qualify the patient for BiPAP at home. Otherwise he may require a sleep study on outpatient basis to get him qualified for BiPAP. In the meantime he is maintained on bronchodilators. He did develop hypernatremia secondary to free water deficit, and that is being addressed by nephrology. The patient is seen again today 08/27/2017 in follow-up on the selective care unit. He is awake and alert in no acute distress. He is breathing easier today as compared to yesterday. He did utilize the BiPAP last night. He states he is becoming more comfortable with it and it does seem to be helping. We are hoping to qualify him for home BiPAP. He is currently maintaining O2 saturations in the mid 90s on 5 L high flow nasal cannula. He is afebrile. Hemodynamically stable. Creatinine 3.12. The patient required a straight cath yesterday and over a liter of urine was returned. Bowden catheter today. Stool cultures pending. Patient was reevaluated today on 08/28/2017, doing extremely well from the pulmonary perspective as long as he is using the BiPAP at night, and he is using oxygen during the day. Remains on a high flow nasal cannula, patient does have severe COPD, and most likely has underlying obstructive sleep apnea syndrome. Labs were reviewed today his BUN is 46 creatinine is 3.92, this seems to be gradually getting worse. Patient remains nonoliguric, and it was felt that the patient developed acute kidney injury secondary to ATN possibly secondary to nonsteroidal anti-inflammatory medications and vancomycin. Considering that the urinalysis revealed 4% eosinophils, possibility of interstitial nephritis is to be considered. This is being addressed by nephrology on the case. The patient was seen again today 08/29/2017 in follow-up on the selective care unit. He is currently sitting up in bed. He is awake and alert in no acute distress. He denies any worsening shortness of breath, cough or congestion. He is utilizing the BiPAP at night and during the day while napping. Otherwise , he is maintaining good O2 saturations in the mid 90s on 2 L/m per nasal cannula. His been afebrile. Hemodynamically stable. Creatinine does continue to climb currently at 4.32. Nephrology is on the case. He has been started on prednisone 40 mg daily. Objective - Vital Signs Vital signs: Vital Signs Temp 96.8 F L 08/29/17 11:34 Pulse 83 08/29/17 11:39 Resp 16 08/29/17 11:39 BP 165/75 08/29/17 11:34 Pulse Ox 95 08/29/17 11:34 Intake & Output 08/28/17 08/29/17 08/29/17 18:59 06:59 18:59 Intake Total 947 213 6633 Output Total 1300 Balance 318 -700 1220 Weight 131.5 kg 133.2 kg Intake: Intake, IV Titration 500 Amount Sodium Chloride 0.9% 500 500 ml @ 999 mls/hr IV .Q31M ONE Rx#:[id number] Oral 318 600 720 Output: Urine 1300 Straight 1300 Other: Voiding Method Indwelling Catheter Indwelling Catheter Indwelling Catheter # Voids 1 # Bowel Movements 2 - Exam Physical Exam: Revealed a 66-year-old white male in no distress, on BiPAP. Head: Atraumatic, normocephalic. Eyes: PERRLA, EOMI, no icterus. HEENT:Neck is supple. No neck masses. No thyromegaly. No JVD. Chest: Diminished breath sounds at the bases, no crackles or rhonchi or wheezes , patient does have a barrel chest. Cardiac Exam: Normal S1 and S2, no S3 gallop, no murmur. Abdomen: Postsurgical, some redness noted in the periumbilical area, could be related to her cellulitis of the abdominal wall. No rebound, no guarding. As the bowel sounds. Extremities: No clubbing, no edema, no cyanosis. Neurological Exam: No focal neurologic deficit. Psychiatric: Normal mood affect and mental status examination. Lymphatics: No lymphadenopathy. - Labs CBC & Chem 7: 08/28/17 06:22 08/29/17 06:24 Labs: Abnormal Lab Results - Last 24 Hours (Table) 08/28/17 08/28/17 08/29/17 Range/Units 16:45 20:54 06:00 Chloride (98-107) mmol/L Carbon Dioxide (22-30) mmol/L BUN (9-20) mg/dL Creatinine (0.66-1.25) mg/dL Glucose (74-99) mg/dL POC Glucose (mg/dL) 246 H 262 H 169 H (75-99) mg/dL Alkaline Phosphatase (38-126) U/L Total Protein (6.3-8.2) g/dL Albumin (3.5-5.0) g/dL 08/29/17 08/29/17 Range/Units 06:24 11:41 Chloride 95 L (98-107) mmol/L Carbon Dioxide 32 H (22-30) mmol/L BUN 56 H (9-20) mg/dL Creatinine 4.32 H (0.66-1.25) mg/dL Glucose 176 H (74-99) mg/dL POC Glucose (mg/dL) 210 H (75-99) mg/dL Alkaline Phosphatase 144 H (38-126) U/L Total Protein 5.1 L (6.3-8.2) g/dL Albumin 2.9 L (3.5-5.0) g/dL Microbiology - Last 24 Hours (Table) 08/22/17 21:50 Blood Culture - Final Blood No Growth after 144 hours 08/26/17 10:00 Stool Culture - Preliminary Stool Assessment and Plan Assessment: 1 Acute on chronic hypoxic and hypercapnic respiratory failure secondary to an acute exacerbation of COPD 2 postoperative hallucination most likely secondary to metabolic encephalopathy with relative hypoxia and hypercapnia. Again that is acute on chronic. Fever could be another contributing factor to his hallucination. 3 episodic fever currently under investigation. Computed tomography scan of the abdomen revealed a right colon colitis. That is being addressed by surgery on the case. 4 lacunar stroke based on the CAT scan findings 5 umbilical hernia repair 6 smoker 7 hypertension 8 diabetes mellitus 9 paroxysmal atrial fibrillation 10 hypernatremia 11 acute renal failure current creatinine 4.32. The patient had a post residual straight cath of [address] L[address] in [address]. Recommendation: The patient was seen and evaluated by Dr. Borja. We'll continue with the BiPAP as needed. Performed a nighttime oximeter reading to qualify for home BiPAP. Continue bronchodilators and Symbicort. Nephrology is on the case regarding the continuing rise in the creatinine level. Vancomycin and NSAIDs were discontinued previously. He was started on prednisone. We will continue to follow and make further recommendations based on his clinical status. I, the cosigning physician, performed a history & physical examination of the patient. Lungs sounds have crackles in the bilateral posterior bases more so on the right. Maintaining good O2 saturations in the 90s on 2 L/m per nasal cannula. I discussed the assessment and plan of care with my nurse practitioner , Keri Villagran. I attest to the above note as dictated by her.
--- NOTE | 2017-08-29 15:30 | PN ---
PROGRESS NOTE DATE OF SERVICE: 08/29/2017. REASON FOR FOLLOWUP: Colitis. INTERVAL HISTORY: The patient is afebrile. He has been breathing comfortably. Denies having any chest pain or shortness of breath. No cough. No abdominal pain. He did have output in his Bowden catheter and did mention diarrhea has improved. EXAMINATION: Blood pressure is 155/75, pulse of 51, temperature 97.8. He is 95% on 2 L nasal cannula. General description is an elderly male up in the bed in no distress. Respiratory system: Unlabored breathing with decreased breath sounds in the bases. No wheeze. Heart S1, S2 regular rate and rhythm. Abdomen soft, no tenderness. LABS: BUN of 56, creatinine 4.32. DIAGNOSTIC IMPRESSION AND PLAN: 1. Patient with , currently off antibiotic for the same. Repeat culture negative. 2. Patient with evidence of colitis so far stool culture pending, continue on oral Cipro to be for a short course. Continue supportive care. MMODL / IJN: [id number] /
[2017-08-29 16:46] LABS: Glucose,Whole Blood 284 mg/dL (75-99)
[2017-08-29 20:18] LABS: Appearance,Urine Clear (Clear); Bacteria,Urine Rare /hpf; Bilirubin,Urine Negative (Negative); Blood,Urine Moderate (Negative); Color,Urine Yellow; Glucose,Urine (UA) 1+ (Negative); Ketones,Urine Negative (Negative); Leukocyte Esterase,Urine Moderate (Negative); Nitrite,Urine Negative (Negative); PH, Urine 6.5 (5.0-8.0); Protein,Urine 1+ (Negative); RBC,Urine 28 /hpf (0-5); Specific Gravity,Urine 1.007 (1.001-1.035); Urobilinogen,Urine <2.0 mg/dL (<2.0); WBC,Urine 16 /hpf (0-5)
[2017-08-29 20:43] LABS: Glucose,Whole Blood 240 mg/dL (75-99)
[2017-08-29] MEDS ORDERED: INSULIN DETEMIR 100 UNIT/ML 10 ML VIAL SQ SCH (21:00)
[2017-08-30 05:46] LABS: Glucose,Whole Blood 200 mg/dL (75-99)
[2017-08-30 05:48] LABS: HCT 42.7 % (39.0-53.0); HGB 13.8 gm/dL (13.0-17.5); MCH 30.3 pg (25.0-35.0); MCHC 32.3 g/dL (31.0-37.0); MCV 93.9 fL (80.0-100.0); Mean Platelet Volume 7.4; Platelet Count 255 k/uL (150-450); RBC 4.55 m/uL (4.30-5.90); RDW 12.7 % (11.5-15.5)
[2017-08-30 05:50] LABS: INR 1.1 (<1.2)
[2017-08-30 05:57] LABS: Calcium 8.6 mg/dL (8.4-10.2); Potassium 4.5 mmol/L (3.5-5.1); Total Bilirubin 0.3 mg/dL (0.2-1.3); Total Protein 5.2 g/dL (6.3-8.2)
[2017-08-30] MEDS: INSULIN ASPART 100 UNIT/ML 1 ML 10 ML VIAL SQ SCH ×4 (06:19→21:22)
[2017-08-30] MEDS: CARVEDILOL 12.5 MG TAB PO SCH ×2 (06:19→17:17)
[2017-08-30] MEDS: IPRATROPIUM-ALBUTEROL 3 ML NEB INHALATION SCH ×4 (07:38→19:46)
[2017-08-30] MEDS: SYMBICORT 160-4.5 MCG INHALER INHALATION SCH ×2 (07:38→19:46)
[2017-08-30] MEDS: metroNIDAZOLE 500 MG TAB PO SCH ×3 (08:52→21:03)
[2017-08-30] MEDS: traMADol 50 MG TAB PO SCH ×4 (08:52→21:03)
[2017-08-30] MEDS: TAMSULOSIN 0.4 MG CAP.ER.24H PO SCH (08:52)
[2017-08-30] MEDS: ALLOPURINOL 300 MG TAB PO SCH (08:52)
[2017-08-30] MEDS: ATORVASTATIN 40 MG TAB PO SCH (08:52)
[2017-08-30] MEDS: amLODIPine 10 MG TAB PO SCH (08:52)
[2017-08-30] MEDS: predniSONE 20 MG TAB PO SCH (08:52)
[2017-08-30] MEDS: FAMOTIDINE 20 MG TAB PO SCH ×2 (08:52→21:03)
[2017-08-30] MEDS: CIPROFLOXACIN HCL 500 MG TAB PO SCH ×2 (08:52→21:03)
--- NOTE | 2017-08-30 09:44 | P.GSCN ---
History of Present Illness Consult date: 08/30/17 History of present illness: The patient is a 66-year-old gentleman in the hospital with multiple post- hernia surgery complications related to medical conditions. The patient has been in the hospital about 10 days. He has had an indwelling catheter due to these conditions. The patient recently was found to have hematuria. The catheter has had to be changed as well as irrigated. The patient at this point in time is oriented. He has an indwelling catheter with a large volume of old blood in the bag. The urine in the tubing is very light tea-colored. The patient states that prior to the admission he did not have any problems with hematuria. He does have some obstructive voiding symptoms. He is on Flomax in the hospital. Review of Systems - Constitutional Reports as per HPI - Respiratory Reports dyspnea, Reports snoring - Genitourinary Reports as per HPI Past Medical History Past Medical History: COPD, Diabetes Mellitus, Hypertension History of Any Multi-Drug Resistant Organisms: None Reported Past Surgical History: Back Surgery, Hernia Repair, Joint Replacement, Orthopedic Surgery Past Anesthesia/Blood Transfusion Reactions: No Reported Reaction Past Psychological History: No Psychological Hx Reported Smoking Status: Current every day smoker Past Alcohol Use History: None Reported Past Drug Use History: None Reported - Past Family History Father Family Medical History: GERD/Reflux Medications and Allergies Home Medications Medication Instructions Recorded Confirmed Type Albuterol Inhaler [Ventolin Hfa 3 puff INHALATION RT-BID PRN 08/11/17 08/22/17 History Inhaler] Allopurinol [Zyloprim] 300 mg PO DAILY 08/11/17 08/22/17 History Aspirin [Adult Low Dose Aspirin EC] 81 mg PO DAILY 08/11/17 08/22/17 History Carvedilol 25 mg PO BID 08/11/17 08/22/17 History Fluticasone/Vilanterol [Breo 1 puff INHALATION RT-DAILY 08/11/17 08/22/17 History Ellipta 200-25 Mcg INH] Furosemide [Lasix] 40 mg PO DAILY 08/11/17 08/22/17 History Insulin Detemir [Levemir] 30 unit SQ DAILY 08/11/17 08/22/17 History Lisinopril 30 mg PO DAILY 08/11/17 08/22/17 History Frederica-3 Fatty Acids/Fish Oil [Fish 1 cap PO DAILY 08/11/17 08/22/17 History Oil 1,000 mg Softgel] Tamsulosin [Flomax] 0.4 mg PO DAILY 08/11/17 08/22/17 History glipiZIDE [Glucotrol] 10 mg PO AC-BID 08/11/17 08/22/17 History metFORMIN HCL 1,000 mg PO BID PRN 08/11/17 08/22/17 History Docusate [Colace] 100 mg PO BID #20 capsule 08/19/17 08/22/17 Rx Albuterol Nebulized [Ventolin 2.5 mg INHALATION RT-QID PRN 08/22/17 08/22/17 History Nebulized] HYDROcodone/APAP 7.5-325MG [[place] 1 tab PO Q4H PRN 08/22/17 08/22/17 History 7.5] Multivitamins, Thera [Multivitamin 1 tab PO DAILY 08/22/17 08/22/17 History (formulary)] Oxymetazoline 0.05% Nasl [place] 3 spray EA NOSTRIL TID PRN 08/22/17 08/22/17 History [Afrin 0.05% Nasal [place]] Allergies Allergy/AdvReac Type Severity Reaction Status Date / Time codeine Allergy Unknown Verified 08/22/17 11:39 iodine Allergy "i could Verified 08/22/17 11:39 not move for 3 weeks" latex Allergy Rash/Hives/ Verified 08/22/17 11:39 blisters nitrous oxide Allergy Vomiting Verified 08/22/17 11:39 Surgical - Exam Vital Signs Temp Pulse Resp BP Pulse Ox 98.1 F 123 H 22 149/63 83 L 08/22/17 10:38 08/22/17 10:38 08/22/17 10:38 08/22/17 10:38 08/22/17 10:38 - General well developed, well nourished, no distress, obese - Eyes PERRL - ENT no hearing loss - Respiratory normal expansion, normal respiratory effort - Abdomen Abdomen: soft, non tender - Genitourinary Indwelling catheter. Uncircumcised. Blood at the urethral meatus due to catheter trauma. Testes scrotum unremarkable. Old blood in the catheter. - Integumentary no rash, no growths - Neurologic normal coordination, normal sensation - Musculoskeletal normal posture - Psychiatric oriented to time, oriented to person, oriented to place, speech is normal, memory intact Results - Labs 08/30/17 05:36 08/30/17 05:36 Abnormal Lab Results - Last 24 Hours (Table) 08/29/17 08/29/17 08/29/17 Range/Units 11:41 16:43 20:07 WBC (3.8-10.6) k/uL BUN (9-20) mg/dL Creatinine (0.66-1.25) mg/dL Glucose (74-99) mg/dL POC Glucose (mg/dL) 210 H 284 H (75-99) mg/dL AST (17-59) U/L Total Protein (6.3-8.2) g/dL Albumin (3.5-5.0) g/dL Urine Protein 1+ H (Negative) Urine Glucose (UA) 1+ H (Negative) Urine Blood Moderate H (Negative) Ur Leukocyte Esterase Moderate H (Negative) Urine RBC 28 H (0-5) /hpf Urine WBC 16 H (0-5) /hpf Urine Bacteria Rare H (None) /hpf 08/29/17 08/30/17 08/30/17 Range/Units 20:41 05:36 05:36 WBC 11.0 H (3.8-10.6) k/uL BUN 67 H (9-20) mg/dL Creatinine 4.30 H (0.66-1.25) mg/dL Glucose 189 H (74-99) mg/dL POC Glucose (mg/dL) 240 H (75-99) mg/dL AST 62 H (17-59) U/L Total Protein 5.2 L (6.3-8.2) g/dL Albumin 3.0 L (3.5-5.0) g/dL Urine Protein (Negative) Urine Glucose (UA) (Negative) Urine Blood (Negative) Ur Leukocyte Esterase (Negative) Urine RBC (0-5) /hpf Urine WBC (0-5) /hpf Urine Bacteria (None) /hpf 08/30/17 Range/Units 05:44 WBC (3.8-10.6) k/uL BUN (9-20) mg/dL Creatinine (0.66-1.25) mg/dL Glucose (74-99) mg/dL POC Glucose (mg/dL) 200 H (75-99) mg/dL AST (17-59) U/L Total Protein (6.3-8.2) g/dL Albumin (3.5-5.0) g/dL Urine Protein (Negative) Urine Glucose (UA) (Negative) Urine Blood (Negative) Ur Leukocyte Esterase (Negative) Urine RBC (0-5) /hpf Urine WBC (0-5) /hpf Urine Bacteria (None) /hpf Microbiology - Last 24 Hours (Table) 08/26/17 10:00 Stool Culture - Final Stool Diabetes panel 08/30/17 Range/Units 05:36 Sodium 139 (137-145) mmol/L Potassium 4.5 (3.5-5.1) mmol/L Chloride 98 (98-107) mmol/L Carbon Dioxide 29 (22-30) mmol/L BUN 67 H (9-20) mg/dL Creatinine 4.30 H (0.66-1.25) mg/dL Glucose 189 H (74-99) mg/dL Calcium 8.6 (8.4-10.2) mg/dL AST 62 H (17-59) U/L ALT 72 (21-72) U/L Alkaline Phosphatase 125 (38-126) U/L Total Protein 5.2 L (6.3-8.2) g/dL Albumin 3.0 L (3.5-5.0) g/dL Calcium panel 08/30/17 Range/Units 05:36 Calcium 8.6 (8.4-10.2) mg/dL Albumin 3.0 L (3.5-5.0) g/dL Pituitary panel 08/30/17 Range/Units 05:36 Sodium 139 (137-145) mmol/L Potassium 4.5 (3.5-5.1) mmol/L Chloride 98 (98-107) mmol/L Carbon Dioxide 29 (22-30) mmol/L BUN 67 H (9-20) mg/dL Creatinine 4.30 H (0.66-1.25) mg/dL Glucose 189 H (74-99) mg/dL Calcium 8.6 (8.4-10.2) mg/dL Adrenal panel 08/30/17 Range/Units 05:36 Sodium 139 (137-145) mmol/L Potassium 4.5 (3.5-5.1) mmol/L Chloride 98 (98-107) mmol/L Carbon Dioxide 29 (22-30) mmol/L BUN 67 H (9-20) mg/dL Creatinine 4.30 H (0.66-1.25) mg/dL Glucose 189 H (74-99) mg/dL Calcium 8.6 (8.4-10.2) mg/dL Total Bilirubin 0.3 (0.2-1.3) mg/dL AST 62 H (17-59) U/L ALT 72 (21-72) U/L Alkaline Phosphatase 125 (38-126) U/L Total Protein 5.2 L (6.3-8.2) g/dL Albumin 3.0 L (3.5-5.0) g/dL Assessment and Plan Assessment: Impression: Gross hematuria secondary to urethral catheter trauma. BPH with obstruction. Multiple medical issues as outlined in the chart. Recommendations: The urine appears to be clearing. Catheter can be irrigated at any time. When the urine clears a catheter can be removed for spontaneous voiding trial. He should be seen in my office in follow-up.
--- NOTE | 2017-08-30 10:12 | P.PN ---
Subjective Progress Note Date: 08/30/17 Principal diagnosis: colitis, hematuria Patient is a 66-year-old male with a past medical history of COPD, diabetes, hypertension, and tobacco abuse who presented to the ER with altered mentation and hallucinations. He underwent an extensive evaluation. At that point in time he was found hypercarbia and altered mentation. He underwent a head CT which was negative. EKG showed sinus tachycardia without significant ST -T wave changes. His urinalysis was negative. CPK was slightly elevated. It was felt that this could be due to CO2 retention. He is admitted for further monitoring and care. He was seen by pulmonary who recommended continuing with his supplemental oxygenation, incentive spirometer, and bronchodilators around the clock. They also started him on Lasix. On the night after admission we were called by nursing because the patient had not had a bowel movement or urine output and felt very fatigued. It was felt that he had possible postop ileus from overuse of Neponset. Is also noted to have an elevated CPK and acute kidney injury secondary to lack of urine output for over 6 hours. He did spike a fever. At that point in time he was started on IV fluids. Blood culture, urine culture, and abdominal CAT scan were ordered. He then went into A. fib with RVR early on the morning of 422 which converted spontaneously to normal sinus rhythm after a bowel movement. He was seen by pulmonary and was noted to have apneic episode. They're recommending sleep study and placement on BiPAP as needed. He did not have any hallucinations after admission. On 08/[address] of the abdomen and pelvis which showed colitis likely infectious. There was concern for possible sepsis. Infectious disease was consulted and he was placed on vancomycin and Zosyn and Flagyl. Vancomycin was eventually discontinued after blood cultures came back with 1 positive for staph epidermidis. He also had an NG tube placed for possible ileus. Due to aggressive IV fluid rehydration he developed hypernatremia and he was therefore transitioned to normal saline. Cardiology was consulted for his episode of A. fib and recommended an echocardiogram and possible anticoagulation. He was continued to monitor on telemetry. His nasogastric tube was able to be discontinued on 424. On 08/26 he started developing acute kidney injury and nephrology was consulted. A Vigil was placed due to low urine output. Nephrology was consulted. His antibiotics were also transitioned to Cipro and Flagyl at that point in time. Despite IV fluids and diuresis will his creatinine continued to increase. His blood pressure remained stable. He was noted to have positive urine eosinophils was therefore started on steroids. His echocardiogram was unrevealing. He did not develop any other additional episodes of A. fib and therefore was determined he will not need chronic anticoagulation. His creatinine continued to rise through 08/29. On the afternoon of he still had not had any urine output and his Vigil catheter. He was given a bolus of normal saline and still would not have urine output and therefore given a dose of Bumex. He then felt that his bladder was distended and bladder scan revealed greater than 999 mL despite having a Vigil catheter in place. Were not able to flush Vigil catheter with return of urine and therefore that Vigil was removed in an additional one was reinserted. At the time of reinsertion patient had grossly bloody urine that then cleared to tea- colored urine. Overnight on 08/30 he again experienced no urine output through the Vigil catheter. He felt distended again got up and moved around and it seemed as though the Vigil broke loose resulting in bright red old blood in the Vigil catheter along with clots. Urology was consulted. Patient seen and examined at bedside. Feels as though his bladder is full again. Had 2 BM yesterday, no nausea, no vomiting, 2 episodes of diarrhea. No abdominal pain. Was just started on flomax 2 weeks ago and was supposed to Dr. Hay, but has ended up hospitalized. Objective - Vital Signs Vital signs: Vital Signs Temp 97.1 F L 08/30/17 04:00 Pulse 76 08/30/17 07:50 Resp 18 08/30/17 04:00 BP 146/67 08/30/17 04:00 Pulse Ox 97 08/30/17 04:00 Intake & Output 08/29/17 08/30/17 08/30/17 18:59 06:59 18:59 Intake Total 1220 Output Total 1700 450 Balance -480 -450 Weight 132.8 kg Intake: Intake, IV Titration 500 Amount Sodium Chloride 0.9% 500 500 ml @ 999 mls/hr IV .Q31M ONE Rx#:[id number] Oral 720 Output: Urine 1700 450 Uretheral (Vigil) 0 Other: Voiding Method Indwelling Catheter Indwelling Catheter # Voids 1 - Exam General: Nontoxic, no distress, appears at stated age, obese Derm: warm, dry Head: atraumatic, normocephalic, symmetric Eyes: EOMI, no lid lag, anicteric sclera Mouth: no lip lesion, mucus membranes moist Cardiovascular: S1S2 reg, no murmur, positive posterior tibial pulse bilateral, Lungs: Decreased breath sounds bilateral, no rhonchi, no rales , no accessory muscle use Abdominal: soft, nontender to palpation, no guarding, no appreciable organomegaly, gross hematuria in vigil cath. Ext: no gross muscle atrophy, 2+ edema, no contractures Neuro: CN II-XI grossly intact, no focal neuro deficits Psych: Alert, oriented, appropriate affect - Labs CBC & Chem 7: 08/30/17 05:36 08/30/17 05:36 Labs: Abnormal Lab Results - Last 24 Hours (Table) 08/29/17 08/29/17 08/29/17 Range/Units 11:41 16:43 20:07 WBC (3.8-10.6) k/uL BUN (9-20) mg/dL Creatinine (0.66-1.25) mg/dL Glucose (74-99) mg/dL POC Glucose (mg/dL) 210 H 284 H (75-99) mg/dL AST (17-59) U/L Total Protein (6.3-8.2) g/dL Albumin (3.5-5.0) g/dL Urine Protein 1+ H (Negative) Urine Glucose (UA) 1+ H (Negative) Urine Blood Moderate H (Negative) Ur Leukocyte Esterase Moderate H (Negative) Urine RBC 28 H (0-5) /hpf Urine WBC 16 H (0-5) /hpf Urine Bacteria Rare H (None) /hpf 08/29/17 08/30/17 08/30/17 Range/Units 20:41 05:36 05:36 WBC 11.0 H (3.8-10.6) k/uL BUN 67 H (9-20) mg/dL Creatinine 4.30 H (0.66-1.25) mg/dL Glucose 189 H (74-99) mg/dL POC Glucose (mg/dL) 240 H (75-99) mg/dL AST 62 H (17-59) U/L Total Protein 5.2 L (6.3-8.2) g/dL Albumin 3.0 L (3.5-5.0) g/dL Urine Protein (Negative) Urine Glucose (UA) (Negative) Urine Blood (Negative) Ur Leukocyte Esterase (Negative) Urine RBC (0-5) /hpf Urine WBC (0-5) /hpf Urine Bacteria (None) /hpf 08/30/17 Range/Units 05:44 WBC (3.8-10.6) k/uL BUN (9-20) mg/dL Creatinine (0.66-1.25) mg/dL Glucose (74-99) mg/dL POC Glucose (mg/dL) 200 H (75-99) mg/dL AST (17-59) U/L Total Protein (6.3-8.2) g/dL Albumin (3.5-5.0) g/dL Urine Protein (Negative) Urine Glucose (UA) (Negative) Urine Blood (Negative) Ur Leukocyte Esterase (Negative) Urine RBC (0-5) /hpf Urine WBC (0-5) /hpf Urine Bacteria (None) /hpf Microbiology - Last 24 Hours (Table) 08/26/17 10:00 Stool Culture - Final Stool Assessment and Plan Assessment: Hematuria -Suspected due to Vigil catheter use ? clots - consult urology, flush vigil frequently -Monitor signs of hematuria - Repeat UA without signs of infection -Had received 1 dose of Xarelto on 08/23. -Heparin and ASA on hold HTN urgency - add Norvasc as lisinopril still needs to be held due to JUAN J - coreg Acute kidney injury with Oliguira, possible ATN - Cr stable today -Maintain Vigil catheter -Avoid nephrotoxic agents -Nephrology recommendations, continue with prednisone, may need dialysis -Monitor renal function daily -Atrophy left kidney noted on CAT scan - follow urine output closely Colitis -Infectious disease recommendations appreciated -Continue with Cipro and Flagyl -Supportive care -C. diff negative -Stool culture negative Severe COPD with possible underlying obstructive sleep apnea -Pulmonary recommendations -Overnight pulse oximetry is consistent with needing BiPAP therapy however due to patient's worsening creatinine he'll not be discharged home and this test will need to be repeated later in his hospitalization -Continue with Symbicort, DuoNeb, when necessary bronchodilators Recent ventral hernia surgery repair -Surgery has signed off case Paroxysmal atrial fibrillation -Has maintained normal sinus rhythm -Cardiology recommendations appreciated -No need for anticoagulation at discharge - Follow-up with Dr. Cardoza at discharge Diabetes mellitus type 2 -Follow blood sugars, insulin sliding scale -Metformin, glipizide on hold -Increase levemir to home dose -Hemoglobin A1c 7.4 BPH -Flomax daily Toxic metabolic encephalopathy, resolved Hypernatremia, resolved Sepsis ruled out DVT prophylaxis: SCDs Discussed with: Patient, nursing Anticipated discharge: 2-[address]: home with home health A total of 35 minutes was spent on the care of this complex patient more than 50 % of the time was spent in counseling and care coordination.
[2017-08-30] MEDS ORDERED: SODIUM CHLORIDE 0.9% IRRIGATIO 3,000 ML IRRIGATION ONE ×2 (10:29→11:30)
--- NOTE | 2017-08-30 10:38 | P.PN ---
Subjective Progress Note Date: 08/30/17 Principal diagnosis: This is a 66-year-old obese male who is seen in consultation because of acute kidney injury secondary to a combination off nonsteroidals vancomycin, possible acute interstitial nephritis and urinary retention. He was admitted with colitis which is deemed to be infectious and is on antibiotics for this. He does have chronic kidney disease based on a computed tomography scan which shows left atrophy kidney. In the background she is known with severe COPD sleep apnea diabetes hypertension atrial fibrillation in the past. Currently his diarrhea is completely resolved. His appetite is great. No fever chills cough no abdominal pain. Yesterday his Bowden catheter was somewhat blocked and after unblocking it supposedly he had large amount of urine output. No nausea vomiting is able to stand up and walk around no dizziness. No fever chills no abdominal pain. His creatinine is seems to be leveling off or the last 3 days. Creatinine was 3.9, 4.3 and 4.3 last 3 days Objective - Vital Signs Vital signs: Vital Signs Temp 97.1 F L 08/30/17 04:00 Pulse 76 08/30/17 07:50 Resp 18 08/30/17 04:00 BP 146/67 08/30/17 04:00 Pulse Ox 97 08/30/17 04:00 Intake & Output 08/29/17 08/30/17 08/30/17 18:59 06:59 18:59 Intake Total 1220 Output Total 1700 450 Balance -480 -450 Weight 132.8 kg Intake: Intake, IV Titration 500 Amount Sodium Chloride 0.9% 500 500 ml @ 999 mls/hr IV .Q31M ONE Rx#:[id number] Oral 720 Output: Urine 1700 450 Uretheral (Bowden) 0 Other: Voiding Method Indwelling Catheter Indwelling Catheter # Voids 1 On examination is awake alert oriented comfortable. HEENT exam no JVP neck is supple no facial asymmetry Lungs are clear to auscultation with diminished air entry bilaterally. No crackles are heard. Heart sounds are unremarkable no murmur rub gallop Abdomen is obese protuberant but nontender Extremity exam was 1-2+ edema Neurologically awake alert oriented - Labs CBC & Chem 7: 08/30/17 05:36 08/30/17 05:36 Labs: Abnormal Lab Results - Last 24 Hours (Table) 08/29/17 08/29/17 08/29/17 Range/Units 11:41 16:43 20:07 WBC (3.8-10.6) k/uL BUN (9-20) mg/dL Creatinine (0.66-1.25) mg/dL Glucose (74-99) mg/dL POC Glucose (mg/dL) 210 H 284 H (75-99) mg/dL AST (17-59) U/L Total Protein (6.3-8.2) g/dL Albumin (3.5-5.0) g/dL Urine Protein 1+ H (Negative) Urine Glucose (UA) 1+ H (Negative) Urine Blood Moderate H (Negative) Ur Leukocyte Esterase Moderate H (Negative) Urine RBC 28 H (0-5) /hpf Urine WBC 16 H (0-5) /hpf Urine Bacteria Rare H (None) /hpf 08/29/17 08/30/17 08/30/17 Range/Units 20:41 05:36 05:36 WBC 11.0 H (3.8-10.6) k/uL BUN 67 H (9-20) mg/dL Creatinine 4.30 H (0.66-1.25) mg/dL Glucose 189 H (74-99) mg/dL POC Glucose (mg/dL) 240 H (75-99) mg/dL AST 62 H (17-59) U/L Total Protein 5.2 L (6.3-8.2) g/dL Albumin 3.0 L (3.5-5.0) g/dL Urine Protein (Negative) Urine Glucose (UA) (Negative) Urine Blood (Negative) Ur Leukocyte Esterase (Negative) Urine RBC (0-5) /hpf Urine WBC (0-5) /hpf Urine Bacteria (None) /hpf 08/30/17 Range/Units 05:44 WBC (3.8-10.6) k/uL BUN (9-20) mg/dL Creatinine (0.66-1.25) mg/dL Glucose (74-99) mg/dL POC Glucose (mg/dL) 200 H (75-99) mg/dL AST (17-59) U/L Total Protein (6.3-8.2) g/dL Albumin (3.5-5.0) g/dL Urine Protein (Negative) Urine Glucose (UA) (Negative) Urine Blood (Negative) Ur Leukocyte Esterase (Negative) Urine RBC (0-5) /hpf Urine WBC (0-5) /hpf Urine Bacteria (None) /hpf Microbiology - Last 24 Hours (Table) 08/26/17 10:00 Stool Culture - Final Stool Assessment and Plan Assessment: Impression 1. Acute kidney injury from a combination of vancomycin and nonsteroidals as well as possible element of prerenal. Additionally with acute interstitial nephritis is a possibility based on urine RBCs and urine eosinophils. Worsening creatinine, seems to be leveling off of the last 3 days with creatinine 3.9-4.3 and stable. Urine output is adequate. No evidence of uremia.Patient is on prednisone 40 mg daily started 08/28/2017 2. Severe COPD. 4. Mild to moderate edema Recommendations. 1. Maintain prednisone for possible acute interstitial nephritis. 2. Expecting renal recovery from the acute injury from medications, Vanco and nonsteroidals. Hoping to avert need for dialysis. 3. Monitor labs, 4. Will continue to follow closely., No need for urgent dialysis right now
--- NOTE | 2017-08-30 10:47 | P.PN ---
Subjective Progress Note Date: 08/30/17 Principal diagnosis: Mental status changes Progress note dated 08/30/2017 66-year-old male with a history of acute on chronic hypoxemic and hypercapnic respiratory failure, secondary to COPD, metabolic encephalopathy, colitis, recurrent stroke, umbilical hernia repair, hypertension, diabetes mellitus, paroxysmal atrial fibrillation, hyponatremia, and acute renal failure. The patient is doing relatively well. The patient's respiratory status is currently stable. Nephrology see the patient because of his ongoing renal failure. Vancomycin and ancillaries were discontinued. The patient continues on updrafts and bronchodilators and uses BiPAP when necessary. From the pulmonary standpoint, doing much better. Objective - Vital Signs Vital signs: Vital Signs Temp 97.1 F L 08/30/17 04:00 Pulse 76 08/30/17 07:50 Resp 18 08/30/17 04:00 BP 146/67 08/30/17 04:00 Pulse Ox 97 08/30/17 04:00 Intake & Output 08/29/17 08/30/17 08/30/17 18:59 06:59 18:59 Intake Total 1220 Output Total 1700 450 Balance -480 -450 Weight 132.8 kg Intake: Intake, IV Titration 500 Amount Sodium Chloride 0.9% 500 500 ml @ 999 mls/hr IV .Q31M ONE Rx#:[id number] Oral 720 Output: Urine 1700 450 Uretheral (Bowden) 0 Other: Voiding Method Indwelling Catheter Indwelling Catheter # Voids 1 - Exam No acute distress, oriented 3. HEENT examination is grossly unremarkable. Mucous membranes are moist. No oral lesions. Neck supple. Full range of motion. No adenopathy thyromegaly or neck vein distention. Cardiovascular examination reveals regular rhythm rate. S1-S2 normal. No S3 or S4. No discernible murmur noted. Lungs reveal clear breath sounds. Breath sounds are diminished throughout. Breath sounds are equal bilaterally. No adventitious lung sounds appreciated. Abdomen reveals some periumbilical erythema. No tenderness. No masses. Bowel sounds are noted. Extremities are intact. No cyanosis clubbing or edema. Skin is without rash or lesion. Neurologic examination is brief but nonfocal. - Labs CBC & Chem 7: 08/30/17 05:36 08/30/17 05:36 Labs: Abnormal Lab Results - Last 24 Hours (Table) 04/08/29/17 08/29/17 Range/Units 11:41 16:43 20:07 WBC (3.8-10.6) k/uL BUN (9-20) mg/dL Creatinine (0.66-1.25) mg/dL Glucose (74-99) mg/dL POC Glucose (mg/dL) 210 H 284 H (75-99) mg/dL AST (17-59) U/L Total Protein (6.3-8.2) g/dL Albumin (3.5-5.0) g/dL Urine Protein 1+ H (Negative) Urine Glucose (UA) 1+ H (Negative) Urine Blood Moderate H (Negative) Ur Leukocyte Esterase Moderate H (Negative) Urine RBC 28 H (0-5) /hpf Urine WBC 16 H (0-5) /hpf Urine Bacteria Rare H (None) /hpf 08/29/17 08/30/17 08/30/17 Range/Units 20:41 05:36 05:36 WBC 11.0 H (3.8-10.6) k/uL BUN 67 H (9-20) mg/dL Creatinine 4.30 H (0.66-1.25) mg/dL Glucose 189 H (74-99) mg/dL POC Glucose (mg/dL) 240 H (75-99) mg/dL AST 62 H (17-59) U/L Total Protein 5.2 L (6.3-8.2) g/dL Albumin 3.0 L (3.5-5.0) g/dL Urine Protein (Negative) Urine Glucose (UA) (Negative) Urine Blood (Negative) Ur Leukocyte Esterase (Negative) Urine RBC (0-5) /hpf Urine WBC (0-5) /hpf Urine Bacteria (None) /hpf 08/30/17 Range/Units 05:44 WBC (3.8-10.6) k/uL BUN (9-20) mg/dL Creatinine (0.66-1.25) mg/dL Glucose (74-99) mg/dL POC Glucose (mg/dL) 200 H (75-99) mg/dL AST (17-59) U/L Total Protein (6.3-8.2) g/dL Albumin (3.5-5.0) g/dL Urine Protein (Negative) Urine Glucose (UA) (Negative) Urine Blood (Negative) Ur Leukocyte Esterase (Negative) Urine RBC (0-5) /hpf Urine WBC (0-5) /hpf Urine Bacteria (None) /hpf Microbiology - Last 24 Hours (Table) 08/26/17 10:00 Stool Culture - Final Stool Assessment and Plan Assessment: Assessment Acute on chronic hypoxemic respiratory failure secondary to COPD, improved Postoperative hallucinosis, likely related to metabolic encephalopathy Postoperative fever, currently under investigation. Lacunar stroke Status post umbilical hernia repair History of tobacco use Hypertension History of diabetes Paroxysmal atrial fibrillation Acute kidney injury Plan: Plan dated 08/30/2017 The patient continues to use BiPAP when necessary. The patient is doing well on breathing treatments and Symbicort. Continues to be seen by nephrology for his creatinine. The patient's fevers under investigation. We'll continue to follow. Prognosis is guarded. All in all though, patient seemed to be improving. We'll continue to follow. Prognosis is guarded. Time with Patient: Less than 30
[2017-08-30 12:04] LABS: Glucose,Whole Blood 163 mg/dL (75-99)
[2017-08-30 16:40] LABS: Glucose,Whole Blood 325 mg/dL (75-99)
[2017-08-30] MEDS: INSULIN DETEMIR 100 UNIT/ML 10 ML VIAL SQ SCH (21:03)
[2017-08-30 21:13] LABS: Glucose,Whole Blood 275 mg/dL (75-99)
--- NOTE | 2017-08-30 22:04 | PN ---
PROGRESS NOTE DATE OF SERVICE: 08/30/2017 REASON FOR FOLLOWUP: Colitis. INTERVAL HISTORY: The patient is afebrile and has been breathing comfortably. Denies having any chest pain or shortness of breath. Occasional cough. No abdominal pain. His diarrhea has resolved. EXAMINATION: Blood pressure 147/76, pulse of 90, temperature 97.8. He is 91% on 2 L nasal cannula. General description is an elderly male up in the bed in no distress. RESPIRATORY SYSTEM: Unlabored breathing with decreased breath sounds in the bases. No wheeze. HEART: S1, S2. Regular rate and rhythm. EXTREMITIES: No edema of the feet. LABS: Hemoglobin is 13.8, white count 11,000, BUN of 57, creatinine 4.30. DIAGNOSTIC IMPRESSION AND PLAN: 1. Patient with a positive Staph epi contamination. Repeat blood culture negative. 2. Patient with evidence of colitis on the CT. The patient recently . Currently on oral Cipro and Flagyl to continue for about a week to finish a course of therapy. Continue supportive care. MMODL / IJN: [id number] /
[2017-08-31 06:20] LABS: Glucose,Whole Blood 211 mg/dL (75-99)
[2017-08-31] MEDS: CARVEDILOL 12.5 MG TAB PO SCH ×2 (06:26→17:48)
[2017-08-31] MEDS: INSULIN ASPART 100 UNIT/ML 1 ML 10 ML VIAL SQ SCH ×4 (06:54→22:08)
[2017-08-31 07:20] LABS: HCT 40.6 % (39.0-53.0); MCH 29.9 pg (25.0-35.0); MCHC 31.9 g/dL (31.0-37.0); MCV 93.8 fL (80.0-100.0); Mean Platelet Volume 7.9; Platelet Count 252 k/uL (150-450); RBC 4.33 m/uL (4.30-5.90); RDW 12.8 % (11.5-15.5); WBC 11.7 k/uL (3.8-10.6)
[2017-08-31 07:36] LABS: Albumin 2.7 g/dL (3.5-5.0); Calcium 8.6 mg/dL (8.4-10.2); Potassium 4.7 mmol/L (3.5-5.1); Total Bilirubin 0.3 mg/dL (0.2-1.3)
[2017-08-31] MEDS: SYMBICORT 160-4.5 MCG INHALER INHALATION SCH ×2 (07:43→19:29)
[2017-08-31] MEDS: IPRATROPIUM-ALBUTEROL 3 ML NEB INHALATION SCH ×4 (07:43→19:29)
--- NOTE | 2017-08-31 08:45 | P.PN ---
Subjective Patient is seen in follow-up for acute kidney injury. His baseline creatinine is near 1 and elevated at 4.3 this admission - 4.17 today. Patient was noted to have an ileus and had an NG tube in place which was discontinued last week and he is now tolerating a regular diet. Denies abdominal pain. NSAIDs have been discontinued. He's also noted to have colitis for which he is maintained on antibiotics per infectious disease recommendations. He was noted to have urinary retention with over 1 L of urine on bladder scan and now has a Bowden catheter in place. He is nonoliguric. Patient denies any chest pain or shortness of breath. Hemodynamically stable. Vital signs are stable. General: The patient appeared well nourished and normally developed. HEENT: Head exam is unremarkable. Neck is without jugular venous distension. LUNGS: Lungs are clear to auscultation and percussion. Breath sounds decreased. HEART: Rate and Rhythm are regular. First and second heart sounds normal. No murmurs, rubs or gallops. ABDOMEN: Abdominal exam reveals normal bowel sounds. Non-tender and non- distended. No evidence of peritonitis. EXTREMITITES: Trace edema. Objective - Vital Signs Vital signs: Vital Signs Temp 97.6 F 08/31/17 08:00 Pulse 88 08/31/17 08:00 Resp 18 08/31/17 08:00 BP 149/70 08/31/17 08:00 Pulse Ox 94 L 08/31/17 08:00 Intake & Output 08/30/17 08/31/17 08/31/17 18:59 06:59 18:59 Intake Total 440 200 240 Output Total 1200 2300 550 Balance -760 -2100 -310 Weight 135.5 kg Intake: Oral 440 200 240 Output: Urine 1200 2300 550 Uretheral (Bowden) 0 0 0 Other: Voiding Method Indwelling Catheter Indwelling Catheter - Labs CBC & Chem 7: 08/31/17 06:48 08/31/17 06:48 Labs: Abnormal Lab Results - Last 24 Hours (Table) 08/30/17 08/30/17 08/30/17 Range/Units 11:58 16:32 21:11 WBC (3.8-10.6) k/uL BUN (9-20) mg/dL Creatinine (0.66-1.25) mg/dL Glucose (74-99) mg/dL POC Glucose (mg/dL) 163 H 325 H 275 H (75-99) mg/dL Total Protein (6.3-8.2) g/dL Albumin (3.5-5.0) g/dL 08/31/17 08/31/17 08/31/17 Range/Units 06:18 06:48 06:48 WBC 11.7 H (3.8-10.6) k/uL BUN 75 H (9-20) mg/dL Creatinine 4.17 H (0.66-1.25) mg/dL Glucose 185 H (74-99) mg/dL POC Glucose (mg/dL) 211 H (75-99) mg/dL Total Protein 5.0 L (6.3-8.2) g/dL Albumin 2.7 L (3.5-5.0) g/dL Microbiology - Last 24 Hours (Table) 08/26/17 10:00 Stool Culture - Final Stool Assessment and Plan Plan: Assessment: #1. Nonoliguric acute kidney injury secondary to ATN secondary to nonsteroidals and vancomycin use. Urinary retention also contributing factor. Also concern for ALLERGIC interstitial nephritis as his urine eosinophils are 4% . Urinalysis is quite benign. No evidence of hydronephrosis noted on CAT scan. He does have left kidney atrophy. Creatinine peaked at 4.3 to this admission and is now gradually improving. Creatinine 4.17 today. #2. Colitis maintained on antibiotics per infectious disease recommendations. #3. Ileus. Now on a regular diet. Surgery following. #4. Hypernatremia secondary to lack of oral water intake. Improved. #5. Hypokalemia due to poor oral intake and metabolic alkalosis status post replacement. Magnesium replete. #6. Acute hypercapnic respiratory failure. Improved. #7. Insulin-dependent diabetes mellitus. #8. History of diastolic CHF. Currently compensated. #9. History of BPH maintained on Flomax. #10. Metabolic alkalosis. Partially compensate for underlying respiratory acidosis. Further worsened from hydrogen losses from NG suction. Improved. #11. Urinary retention status post Bowden catheter placement. Plan: Avoid nephrotoxic agents and hypotensive episodes. Toradol and vancomycin has been discontinued. Maintain Bowden catheter for now. Maintain Flomax. Repeat electrolytes in the morning. Due to worsening renal function and positive urine eosinophils, patient was started on prednisone 40 mg daily on August 28. Protonix has also been changed to Pepcid.
[2017-08-31] MEDS: CIPROFLOXACIN HCL 500 MG TAB PO SCH (09:08)
[2017-08-31] MEDS: FAMOTIDINE 20 MG TAB PO SCH (09:08)
[2017-08-31] MEDS: ATORVASTATIN 40 MG TAB PO SCH (09:08)
[2017-08-31] MEDS: TAMSULOSIN 0.4 MG CAP.ER.24H PO SCH (09:08)
[2017-08-31] MEDS: metroNIDAZOLE 500 MG TAB PO SCH ×3 (09:08→22:04)
[2017-08-31] MEDS: amLODIPine 10 MG TAB PO SCH (09:08)
[2017-08-31] MEDS: ALLOPURINOL 300 MG TAB PO SCH (09:08)
[2017-08-31] MEDS: traMADol 50 MG TAB PO SCH ×4 (09:09→22:05)
[2017-08-31] MEDS: predniSONE 20 MG TAB PO SCH (09:09)
--- NOTE | 2017-08-31 11:12 | P.PN ---
Subjective Progress Note Date: 08/31/17 Principal diagnosis: Mental status changes Progress note dated 08/30/2017 66-year-old male with a history of acute on chronic hypoxemic and hypercapnic respiratory failure, secondary to COPD, metabolic encephalopathy, colitis, recurrent stroke, umbilical hernia repair, hypertension, diabetes mellitus, paroxysmal atrial fibrillation, hyponatremia, and acute renal failure. The patient is doing relatively well. The patient's respiratory status is currently stable. Nephrology see the patient because of his ongoing renal failure. Vancomycin and ancillaries were discontinued. The patient continues on updrafts and bronchodilators and uses BiPAP when necessary. From the pulmonary standpoint, doing much better. Progress note dated 08/31/2017 66-year-old male with a history of acute on chronic hypoxemic and hypercapnic respiratory failure, which responded very nicely to BiPAP therapy. His respiratory failure was secondary to severe COPD. He also has a history of metabolic encephalopathy, colitis, recurrent stroke, umbilicus hernia repair, hypertension, diabetes, paroxysmal atrial fibrillation, hyponatremia and acute renal failure. The patient is being followed by nephrology. The patient is doing relatively well. Respiratory status is much improved. He has been using the BiPAP at nighttime. From the pulmonary standpoint doing much better. He feels much better. He is hopeful to be able to be discharged soon. Objective - Vital Signs Vital signs: Vital Signs Temp 97.6 F 08/31/17 08:00 Pulse 88 08/31/17 08:00 Resp 18 08/31/17 08:00 BP 149/70 08/31/17 08:00 Pulse Ox 94 L 08/31/17 08:00 Intake & Output 08/30/17 08/31/17 08/31/17 18:59 06:59 18:59 Intake Total 440 200 240 Output Total 1200 2300 550 Balance -760 -2100 -310 Weight 135.5 kg Intake: Oral 440 200 240 Output: Urine 1200 2300 550 Uretheral (Bowden) 0 0 0 Other: Voiding Method Indwelling Catheter Indwelling Catheter - Exam No acute distress, oriented 3. Nasal O2 in place. HEENT examination is grossly unremarkable. Mucous membranes are moist. No oral lesions. Neck supple. Full range of motion. No adenopathy thyromegaly or neck vein distention. Cardiovascular examination reveals regular rhythm rate. S1-S2 normal. No S3 or S4. No discernible murmur noted. Lungs reveal clear breath sounds. Breath sounds are diminished throughout. Breath sounds are equal bilaterally. No adventitious lung sounds appreciated. Abdomen reveals some periumbilical erythema. No tenderness. No masses. Bowel sounds are noted. Extremities are intact. No cyanosis clubbing or edema. Skin is without rash or lesion. Neurologic examination is brief but nonfocal. - Labs CBC & Chem 7: 08/31/17 06:48 08/31/17 06:48 Labs: Abnormal Lab Results - Last 24 Hours (Table) 08/30/17 08/30/17 08/30/17 Range/Units 11:58 16:32 21:11 WBC (3.8-10.6) k/uL BUN (9-20) mg/dL Creatinine (0.66-1.25) mg/dL Glucose (74-99) mg/dL POC Glucose (mg/dL) 163 H 325 H 275 H (75-99) mg/dL Total Protein (6.3-8.2) g/dL Albumin (3.5-5.0) g/dL 08/31/17 08/31/17 08/31/17 Range/Units 06:18 06:48 06:48 WBC 11.7 H (3.8-10.6) k/uL BUN 75 H (9-20) mg/dL Creatinine 4.17 H (0.66-1.25) mg/dL Glucose 185 H (74-99) mg/dL POC Glucose (mg/dL) 211 H (75-99) mg/dL Total Protein 5.0 L (6.3-8.2) g/dL Albumin 2.7 L (3.5-5.0) g/dL Microbiology - Last 24 Hours (Table) 08/26/17 10:00 Stool Culture - Final Stool Assessment and Plan Assessment: Assessment Acute on chronic hypoxemic respiratory failure secondary to COPD, improved Postoperative hallucinosis, likely related to metabolic encephalopathy Postoperative fever, currently under investigation. Lacunar stroke Status post umbilical hernia repair History of tobacco use Hypertension History of diabetes Paroxysmal atrial fibrillation Acute kidney injury Plan: Plan dated 08/30/2017 The patient continues to use BiPAP when necessary. The patient is doing well on breathing treatments and Symbicort. Continues to be seen by nephrology for his creatinine. The patient's fevers under investigation. We'll continue to follow. Prognosis is guarded. All in all though, patient seemed to be improving. We'll continue to follow. Prognosis is guarded. Plan dated 08/31/2017 The patient continues to do well. The patient states that about one of the things keeping him in the hospital as his kidney function. This is being followed by nephrology. From respiratory standpoint, the patient's doing well. We'll continue to follow. Chest x-ray stable. Blood cultures from August 25 shows evidence of Staphylococcus epidermidis, likely a contaminant. Again no additional recommendations are made. We'll continue to follow. Hopeful discharge soon. Time with Patient: Less than 30
[2017-08-31 11:49] LABS: Glucose,Whole Blood 173 mg/dL (75-99)
--- NOTE | 2017-08-31 12:52 | P.PN ---
Subjective Progress Note Date: 08/31/17 Principal diagnosis: Colitis and hematuria Patient is currently feeling better, no shortness of breath or chest pain. Currently eating lunch. Objective - Vital Signs Vital signs: Vital Signs Temp 98.0 F 08/31/17 11:40 Pulse 82 08/31/17 11:40 Resp 18 08/31/17 11:40 BP 151/73 08/31/17 11:40 Pulse Ox 96 08/31/17 11:40 Intake & Output 08/30/17 08/31/17 08/31/17 18:59 06:59 18:59 Intake Total 440 200 240 Output Total 1200 2300 900 Balance -760 2100 -660 Weight 135.5 kg Intake: Oral 440 200 240 Output: Urine 1200 2300 900 Uretheral (Vigil) 0 0 0 Other: Voiding Method Indwelling Catheter Indwelling Catheter Indwelling Catheter - Exam General: Nontoxic, no distress, appears at stated age, obese Derm: warm, dry Head: atraumatic, normocephalic, symmetric Eyes: EOMI, no lid lag, anicteric sclera Mouth: no lip lesion, mucus membranes moist Cardiovascular: S1S2 reg, no murmur, positive posterior tibial pulse bilateral, Lungs: Decreased breath sounds bilateral, no rhonchi, no rales , no accessory muscle use Abdominal: soft, nontender to palpation, no guarding, no appreciable organomegaly, gross hematuria in vigil cath. Ext: no gross muscle atrophy, 2+ edema, no contractures Neuro: CN II-XI grossly intact, no focal neuro deficits Psych: Alert, oriented, appropriate affect - Labs CBC & Chem 7: 08/31/17 06:48 08/31/17 06:48 Labs: Abnormal Lab Results - Last 24 Hours (Table) 08/30/17 08/30/17 08/31/17 Range/Units 16:32 21:11 06:18 WBC (3.8-10.6) k/uL BUN (9-20) mg/dL Creatinine (0.66-1.25) mg/dL Glucose (74-99) mg/dL POC Glucose (mg/dL) 325 H 275 H 211 H (75-99) mg/dL Total Protein (6.3-8.2) g/dL Albumin (3.5-5.0) g/dL 08/31/17 08/31/17 08/31/17 Range/Units 06:48 06:48 11:39 WBC 11.7 H (3.8-10.6) k/uL BUN 75 H (9-20) mg/dL Creatinine 4.17 H (0.66-1.25) mg/dL Glucose 185 H (74-99) mg/dL POC Glucose (mg/dL) 173 H (75-99) mg/dL Total Protein 5.0 L (6.3-8.2) g/dL Albumin 2.7 L (3.5-5.0) g/dL Microbiology - Last 24 Hours (Table) 08/26/17 10:00 Stool Culture - Final Stool Assessment and Plan Plan: Hematuria -Suspected due to Vigil catheter use -Consult urology, flush vigil frequently -Resolved. -Repeat UA without signs of infection -Had received 1 dose of Xarelto on 08/23. -Heparin and ASA on hold HTN urgency - Norvasc added as lisinopril still needs to be held due to JUAN J - coreg Acute kidney injury with Oliguira, possible ATN vs. AIN -Cr better today -Maintain Vigil catheter as above -Avoid nephrotoxic agents -Nephrology recommendations, continue with prednisone for AIN -Monitor renal function daily -Atrophy left kidney noted on CAT scan -Follow urine output closely Colitis -Infectious disease recommendations appreciated -Continue with Cipro and Flagyl -Supportive care -C. diff negative -Stool culture negative Severe COPD with possible underlying obstructive sleep apnea -Pulmonary recommendations -Will likely need bipap upon discharge. Will perform overnight pulse ox monitoring when ready for d/c -Continue with Symbicort, DuoNeb, when necessary bronchodilators Recent ventral hernia surgery repair -Surgery has signed off case Paroxysmal atrial fibrillation -Has maintained normal sinus rhythm -Cardiology recommendations appreciated -No need for anticoagulation at discharge -Follow-up with Dr. Cardoza at discharge Diabetes mellitus type 2 -Follow blood sugars, insulin sliding scale -Metformin, glipizide on hold -Increase levemir to home dose -Hemoglobin A1c 7.4 BPH -Flomax daily Toxic metabolic encephalopathy, resolved Hypernatremia, resolved Sepsis ruled out DVT prophylaxis: SCDs Discussed with: Patient, care management Anticipated discharge: 1-[address]: home with home health
[2017-08-31 16:53] LABS: Glucose,Whole Blood 352 mg/dL (75-99)
[2017-08-31 21:22] LABS: Glucose,Whole Blood 275 mg/dL (75-99)
[2017-08-31] MEDS: INSULIN DETEMIR 100 UNIT/ML 10 ML VIAL SQ SCH (22:07)
--- NOTE | 2017-08-31 22:20 | PN ---
PROGRESS NOTE DATE OF SERVICE: 08/31/2017 REASON FOR FOLLOWUP: Colitis. INTERVAL HISTORY: The patient is afebrile. He has been breathing comfortably. Denies having any chest pain or shortness of breath. No abdominal pain. Diarrhea has resolved. EXAMINATION: Blood pressure 119/67, pulse of 86, temperature 98.2. He is 97% on 2 L nasal cannula. General description is an elderly male up in the bed in no distress. RESPIRATORY DISTRESS: Unlabored breathing with decreased breath sounds at the bases. No wheeze. HEART: S1, S2. Regular rate and rhythm. ABDOMEN: Soft, no tenderness. EXTREMITIES: No edema of the feet. LABS: Hemoglobin is 13.2, white count 11.7, BUN of 35, creatinine 4.17. DIAGNOSTIC IMPRESSION AND PLAN: The patient with evidence of colitis on the CT. Did have a recent abdominal hernia surgery. No evidence of perforation. Currently on oral Cipro and Flagyl for a few days. Continue supportive care. MMODL / IJN: [id number] /
[2017-09-01] MEDS: CIPROFLOXACIN HCL 500 MG TAB PO SCH ×2 (03:30→21:26)
[2017-09-01 07:16] LABS: Glucose,Whole Blood 135 mg/dL (75-99)
[2017-09-01] MEDS: INSULIN ASPART 100 UNIT/ML 1 ML 10 ML VIAL SQ SCH ×4 (08:24→21:26)
[2017-09-01] MEDS: traMADol 50 MG TAB PO SCH ×4 (08:25→21:27)
[2017-09-01] MEDS: SYMBICORT 160-4.5 MCG INHALER INHALATION SCH ×2 (08:56→20:33)
[2017-09-01] MEDS: IPRATROPIUM-ALBUTEROL 3 ML NEB INHALATION SCH ×4 (08:56→20:32)
[2017-09-01] MEDS: ATORVASTATIN 40 MG TAB PO SCH (09:08)
[2017-09-01] MEDS: CARVEDILOL 12.5 MG TAB PO SCH ×2 (09:08→16:34)
[2017-09-01] MEDS: predniSONE 20 MG TAB PO SCH (09:08)
[2017-09-01] MEDS: FAMOTIDINE 20 MG TAB PO SCH (09:08)
[2017-09-01] MEDS: amLODIPine 10 MG TAB PO SCH (09:09)
[2017-09-01] MEDS: metroNIDAZOLE 500 MG TAB PO SCH ×3 (09:09→21:26)
[2017-09-01] MEDS: TAMSULOSIN 0.4 MG CAP.ER.24H PO SCH (09:09)
[2017-09-01] MEDS: ALLOPURINOL 100 MG TAB PO SCH (09:09)
--- NOTE | 2017-09-01 09:11 | P.PN ---
Subjective Progress Note Date: 09/01/17 Principal diagnosis: Acute on chronic hypoxic respiratory failure secondary to COPD, improving Progress note dated 08/30/2017 66-year-old male with a history of acute on chronic hypoxemic and hypercapnic respiratory failure, secondary to COPD, metabolic encephalopathy, colitis, recurrent stroke, umbilical hernia repair, hypertension, diabetes mellitus, paroxysmal atrial fibrillation, hyponatremia, and acute renal failure. The patient is doing relatively well. The patient's respiratory status is currently stable. Nephrology see the patient because of his ongoing renal failure. Vancomycin and ancillaries were discontinued. The patient continues on updrafts and bronchodilators and uses BiPAP when necessary. From the pulmonary standpoint, doing much better. Progress note dated 08/31/2017 66-year-old male with a history of acute on chronic hypoxemic and hypercapnic respiratory failure, which responded very nicely to BiPAP therapy. His respiratory failure was secondary to severe COPD. He also has a history of metabolic encephalopathy, colitis, recurrent stroke, umbilicus hernia repair, hypertension, diabetes, paroxysmal atrial fibrillation, hyponatremia and acute renal failure. The patient is being followed by nephrology. The patient is doing relatively well. Respiratory status is much improved. He has been using the BiPAP at nighttime. From the pulmonary standpoint doing much better. He feels much better. He is hopeful to be able to be discharged soon. On 09/01/2017 patient seen in follow-up on medical surgical unit. He is alert, awake, oriented 3, his mentation is back to his baseline. Denies any distress , denies any denies any dyspnea or chest pain. 2 L per nasal cannula, pulse ox 94%. Lung sounds are clear to auscultation, patient's afebrile, vital signs stable. His IV steroids have been transitioned to oral prednisone, patient continues on nebulized bronchodilators. Denies any abdominal pain, patient continues on Cipro and Flagyl for his colitis. Overall he is stable, denies any acute complaints. Objective - Vital Signs Vital signs: Vital Signs Temp 97.2 F L 09/01/17 05:55 Pulse 88 09/01/17 08:57 Resp 16 09/01/17 05:55 BP 133/67 09/01/17 05:55 Pulse Ox 97 09/01/17 05:55 Intake & Output 08/31/17 09/01/1718 18:59 06:59 18:59 Intake Total 720 Output Total 1450 850 Balance -730 -850 Weight 131.5 kg Intake: Oral 720 Output: Urine 1450 850 Uretheral (Bowden) 0 0 Other: Voiding Method Indwelling Catheter Indwelling Catheter # Voids 1 - Exam No acute distress, oriented 3. Nasal O2 in place. HEENT examination is grossly unremarkable. Mucous membranes are moist. No oral lesions. Neck supple. Full range of motion. No adenopathy thyromegaly or neck vein distention. Cardiovascular examination reveals regular rhythm rate. S1-S2 normal. No S3 or S4. No discernible murmur noted. Lungs reveal clear breath sounds. Breath sounds are diminished throughout. Breath sounds are equal bilaterally. No adventitious lung sounds appreciated. Abdomen reveals some periumbilical erythema. No tenderness. No masses. Bowel sounds are noted. Extremities are intact. No cyanosis clubbing or edema. Skin is without rash or lesion. Neurologic examination is brief but nonfocal. - Labs CBC & Chem 7: 08/31/17 06:48 08/31/17 06:48 Labs: Abnormal Lab Results - Last 24 Hours (Table) 08/31/17 08/31/17 08/31/17 Range/Units 11:39 16:43 21:12 POC Glucose (mg/dL) 173 H 352 H 275 H (75-99) mg/dL 09/01/17 Range/Units 07:09 POC Glucose (mg/dL) 135 H (75-99) mg/dL Assessment and Plan Plan: Assessment: Acute on chronic hypoxemic respiratory failure secondary to COPD, improved Postoperative hallucinosis, likely related to metabolic encephalopathy Postoperative fever, currently under investigation. Lacunar stroke Status post umbilical hernia repair History of tobacco use Hypertension History of diabetes Paroxysmal atrial fibrillation Acute kidney injury Plan: Patient remains stable from a standpoint, denies any worsening dyspnea, lung sounds are clear to auscultation. IV steroids have been transmitted to oral prednisone, patient is afebrile, vital signs are stable. No acute complaints, patient is stable for discharge home from pulmonary standpoint, follow-up with Dr. Borja in the office in one week. I performed a history & physical examination of the patient and discussed their management with my nurse practitioner, Jonelle Amaya. I reviewed the nurse practitioner's note and agree with the documented findings and plan of care. Lung sounds are clear. The findings and the impression was discussed with the patient. I attest to the documentation by the nurse practitioner. Time with Patient: Less than 30
[2017-09-01 09:12] LABS: Calcium 9.1 mg/dL (8.4-10.2)
[2017-09-01 09:16] LABS: Potassium 5.3 mmol/L (3.5-5.1)
--- NOTE | 2017-09-01 11:07 | P.PN ---
Subjective Progress Note Date: 09/01/17 Principal diagnosis: Colitis and hematuria Doing well Objective - Vital Signs Vital signs: Vital Signs Temp 97.2 F L 09/01/17 05:55 Pulse 88 09/01/17 09:09 Resp 16 09/01/17 05:55 BP 133/67 09/01/17 05:55 Pulse Ox 97 09/01/17 05:55 Intake & Output 08/31/17 09/01/17 09/01/17 18:59 06:59 18:59 Intake Total 720 Output Total 1450 850 0 Balance -730 -850 0 Weight 131.5 kg Intake: Oral 720 Output: Urine 1450 850 0 Uretheral (Vigil) 0 0 0 Other: Voiding Method Indwelling Catheter Indwelling Catheter # Voids 1 - Exam General: Nontoxic, no distress, appears at stated age, obese Derm: warm, dry Head: atraumatic, normocephalic, symmetric Eyes: EOMI, no lid lag, anicteric sclera Mouth: no lip lesion, mucus membranes moist Cardiovascular: S1S2 reg, no murmur, positive posterior tibial pulse bilateral, Lungs: Decreased breath sounds bilateral, no rhonchi, no rales , no accessory muscle use Abdominal: soft, nontender to palpation, no guarding, no appreciable organomegaly, gross hematuria in vigil cath. Ext: no gross muscle atrophy, 2+ edema, no contractures Neuro: CN II-XI grossly intact, no focal neuro deficits Psych: Alert, oriented, appropriate affect - Labs CBC & Chem 7: 08/31/17 06:48 09/01/17 08:29 Labs: Abnormal Lab Results - Last 24 Hours (Table) 08/31/17 08/31/17 08/31/17 Range/Units 11:39 16:43 21:12 Potassium (3.5-5.1) mmol/L Carbon Dioxide (22-30) mmol/L BUN (9-20) mg/dL Creatinine (0.66-1.25) mg/dL Glucose (74-99) mg/dL POC Glucose (mg/dL) 173 H 352 H 275 H (75-99) mg/dL 09/01/17 09/01/17 Range/Units 07:09 08:29 Potassium 5.3 H (3.5-5.1) mmol/L Carbon Dioxide 32 H (22-30) mmol/L BUN 78 H (9-20) mg/dL Creatinine 3.98 H (0.66-1.25) mg/dL Glucose 145 H (74-99) mg/dL POC Glucose (mg/dL) 135 H (75-99) mg/dL Assessment and Plan Plan: Hematuria -Suspected due to Vigil catheter use -Per urology, will d/c vigil and see how he does -Resolved. -Had received 1 dose of Xarelto on 08/23. -Heparin and ASA on hold HTN urgency - Norvasc added as lisinopril still needs to be held due to JUAN J - coreg Acute kidney injury with Oliguira, possible ATN vs. AIN -Cr better today -D/ Ghandi, needs prednisone taper over 1 month. -Avoid nephrotoxic agents -Monitor renal function daily -Atrophy left kidney noted on CAT scan -Follow urine output closely Colitis -Infectious disease recommendations appreciated -Continue with Cipro and Flagyl -Supportive care -C. diff negative -Stool culture negative Severe COPD with possible underlying obstructive sleep apnea -Pulmonary recommendations -Hypoxic during sleep, qualifies for bipap upon discharge for night time. -Needs walking sats to check for home O2 need -Continue with Symbicort, DuoNeb, when necessary bronchodilators Recent ventral hernia surgery repair -Surgery has signed off case Paroxysmal atrial fibrillation -Has maintained normal sinus rhythm -Cardiology recommendations appreciated -No need for anticoagulation at discharge -Follow-up with Dr. Cardoza at discharge Diabetes mellitus type 2 -Follow blood sugars, insulin sliding scale -Metformin, glipizide on hold -Increase levemir to home dose -Hemoglobin A1c 7.4 BPH -Flomax daily DVT prophylaxis: SCDs Discussed with: Patient, care management Anticipated discharge: 1-[address]: home with home health
[2017-09-01 12:07] LABS: Glucose,Whole Blood 161 mg/dL (75-99)
--- NOTE | 2017-09-01 14:30 | PN ---
PROGRESS NOTE DATE OF SERVICE: 09/01/2017 REASON FOR FOLLOWUP: Colitis. INTERVAL HISTORY: The patient is afebrile, has been breathing comfortably. Denies having any chest pain. No abdominal pain. His diarrhea has resolved and some soft bowel movement with no blood or mucus in it. PHYSICAL EXAMINATION: Blood pressure 133/67, pulse of 70, temperature 97.2. He is 97% on room air. General description is a elderly male, up in the bed in no distress. RESPIRATORY SYSTEM: Unlabored breathing with decreased breath sounds at the base, no wheeze. HEART: S1, S2. Regular rate and rhythm. ABDOMEN: Soft, no tenderness. LABS: Creatinine slightly improved to 3.98, so far culture has been negative. DIAGNOSTIC IMPRESSION AND PLAN: Patient with colitis, seen on the CT in a patient with in the hospital with mental status changes, hallucination, with recent vital hernia repair. Patient currently responds with the Cipro and Flagyl. Will Continue for another 2 days to finish a course of therapy. Continue supportive care. MMODL / IJN: [id number] /
[2017-09-01 17:28] LABS: Glucose,Whole Blood 261 mg/dL (75-99)
--- NOTE | 2017-09-01 20:09 | PN ---
PROGRESS NOTE Patient is seen for followup for acute kidney injury. Patient was started on prednisone for possible acute interstitial nephritis. His renal function is slightly improved. Creatinine is down to 3.9 from 4.1 yesterday. EXAMINATION: Blood pressure was 114/65, early this morning he was 133/67, heart rate of 91 per minute. Patient is afebrile. HEART: S1, S2. LUNGS: Bilateral breath sounds are heard. Abdomen is soft, nontender. Lower extremities show no significant edema. [employer] is grossly intact. LABS: Show sodium 140, potassium 5.3, chloride 98, BUN 78, serum creatinine 3.98. ASSESSMENT: 1. Acute kidney injury, possible acute interstitial nephritis, currently on prednisone with some improvement in the renal function. Will continue with the prednisone for now. Patient is not on any nephrotoxic medications. He is not significantly hypotensive, either. He has an indwelling Bowden catheter with good urine output. 2. Colitis, maintained on antibiotics. 3. Hypernatremia, currently improved. 4. Hyperkalemia associated with acute kidney injury and possible renal tubular acidosis with interstitial nephritis. Will maintain patient on low-potassium diet and also control the blood sugars and try to keep the serum blood sugar level below 160. 5. Urinary retention, currently with indwelling Bowden catheter. 6. History of benign prostatic hypertrophy, maintained on Flomax. PLAN: Maintain patient on low-potassium diet. Continue with the Bowden catheter. Continue with the prednisone. Continue off of NSAIDs. Repeat labs in a.m. MMODL / IJN: [id number] /
[2017-09-01 20:50] LABS: Glucose,Whole Blood 242 mg/dL (75-99)
[2017-09-01] MEDS: INSULIN DETEMIR 100 UNIT/ML 10 ML VIAL SQ SCH (21:27)
[2017-09-02 06:52] LABS: Glucose,Whole Blood 144 mg/dL (75-99)
[2017-09-02] MEDS: IPRATROPIUM-ALBUTEROL 3 ML NEB INHALATION SCH ×4 (07:41→20:16)
[2017-09-02] MEDS: SYMBICORT 160-4.5 MCG INHALER INHALATION SCH ×2 (07:41→20:16)
[2017-09-02] MEDS: traMADol 50 MG TAB PO SCH ×4 (08:37→21:31)
[2017-09-02] MEDS: ALLOPURINOL 100 MG TAB PO SCH (08:37)
[2017-09-02] MEDS: ATORVASTATIN 40 MG TAB PO SCH (08:37)
[2017-09-02] MEDS: INSULIN ASPART 100 UNIT/ML 1 ML 10 ML VIAL SQ SCH ×4 (08:38→21:32)
[2017-09-02] MEDS: CARVEDILOL 12.5 MG TAB PO SCH ×2 (08:38→17:46)
[2017-09-02] MEDS: amLODIPine 10 MG TAB PO SCH (08:38)
[2017-09-02] MEDS: FAMOTIDINE 20 MG TAB PO SCH (08:38)
[2017-09-02] MEDS: predniSONE 20 MG TAB PO SCH (08:38)
[2017-09-02] MEDS: TAMSULOSIN 0.4 MG CAP.ER.24H PO SCH (08:38)
[2017-09-02] MEDS: metroNIDAZOLE 500 MG TAB PO SCH ×3 (08:38→21:31)
[2017-09-02 09:51] LABS: Calcium 9.3 mg/dL (8.4-10.2); Potassium 4.7 mmol/L (3.5-5.1)
--- NOTE | 2017-09-02 10:14 | P.PN ---
Subjective Progress Note Date: 09/02/17 Principal diagnosis: Acute on chronic hypoxic respiratory failure secondary to COPD, improving Progress note dated 08/30/2017 66-year-old male with a history of acute on chronic hypoxemic and hypercapnic respiratory failure, secondary to COPD, metabolic encephalopathy, colitis, recurrent stroke, umbilical hernia repair, hypertension, diabetes mellitus, paroxysmal atrial fibrillation, hyponatremia, and acute renal failure. The patient is doing relatively well. The patient's respiratory status is currently stable. Nephrology see the patient because of his ongoing renal failure. Vancomycin and ancillaries were discontinued. The patient continues on updrafts and bronchodilators and uses BiPAP when necessary. From the pulmonary standpoint, doing much better. Progress note dated 08/31/2017 66-year-old male with a history of acute on chronic hypoxemic and hypercapnic respiratory failure, which responded very nicely to BiPAP therapy. His respiratory failure was secondary to severe COPD. He also has a history of metabolic encephalopathy, colitis, recurrent stroke, umbilicus hernia repair, hypertension, diabetes, paroxysmal atrial fibrillation, hyponatremia and acute renal failure. The patient is being followed by nephrology. The patient is doing relatively well. Respiratory status is much improved. He has been using the BiPAP at nighttime. From the pulmonary standpoint doing much better. He feels much better. He is hopeful to be able to be discharged soon. On 09/01/2017 patient seen in follow-up on medical surgical unit. He is alert, awake, oriented 3, his mentation is back to his baseline. Denies any distress , denies any denies any dyspnea or chest pain. 2 L per nasal cannula, pulse ox 94%. Lung sounds are clear to auscultation, patient's afebrile, vital signs stable. His IV steroids have been transitioned to oral prednisone, patient continues on nebulized bronchodilators. Denies any abdominal pain, patient continues on Cipro and Flagyl for his colitis. Overall he is stable, denies any acute complaints. On 09/20/2017 patient seen in follow-up on medical surgical floor. Remains stable from pulmonary standpoint, denies any complaints, denies any chest pain, denies any dyspnea, chest congestion or sputum production. Remains on 2 L per nasal cannula, with O2 sat 93%. He is wearing his BiPAP at bedtime. Remains afebrile. His renal profile is improving. Patient still has a indwelling catheter with the pain tinged urine in place. She has been consulted, and the patient is scheduled to have his Bowden removed for a voiding trial. From our standpoint patient has been treated for COPD exacerbation, and continues to improve. Objective - Vital Signs Vital signs: Vital Signs Temp 98.7 F 09/02/17 06:10 Pulse 92 09/02/17 07:53 Resp 16 09/02/17 06:10 BP 127/77 09/02/17 06:10 Pulse Ox 93 L 09/02/17 07:44 Intake & Output 09/01/17 09/02/17 09/02/17 18:59 06:59 18:59 Intake Total 480 Output Total 2375 4000 Balance -1895 -4000 Weight 131 kg Intake: Oral 480 Output: Urine 2375 4000 Uretheral (Bowden) 0 1850 Other: Voiding Method Indwelling Catheter Indwelling Catheter # Voids 2 - Exam No acute distress, oriented 3. Nasal O2 in place. HEENT examination is grossly unremarkable. Mucous membranes are moist. No oral lesions. Neck supple. Full range of motion. No adenopathy thyromegaly or neck vein distention. Cardiovascular examination reveals regular rhythm rate. S1-S2 normal. No S3 or S4. No discernible murmur noted. Lungs reveal clear breath sounds. Breath sounds are diminished throughout. Breath sounds are equal bilaterally. No adventitious lung sounds appreciated. Abdomen reveals some periumbilical erythema. No tenderness. No masses. Bowel sounds are noted. Extremities are intact. No cyanosis clubbing or edema. Skin is without rash or lesion. Neurologic examination is brief but nonfocal. - Labs CBC & Chem 7: 08/31/17 06:48 09/01/17 08:29 Labs: Abnormal Lab Results - Last 24 Hours (Table) 09/01/17 09/01/17 09/01/17 Range/Units 12:02 17:22 20:48 POC Glucose (mg/dL) 161 H 261 H 242 H (75-99) mg/dL 09/02/17 Range/Units 06:47 POC Glucose (mg/dL) 144 H (75-99) mg/dL Assessment and Plan Plan: Assessment: Acute on chronic hypoxemic respiratory failure secondary to COPD, improved Postoperative hallucinosis, likely related to metabolic encephalopathy Postoperative fever, currently under investigation. Lacunar stroke Status post umbilical hernia repair History of tobacco use Hypertension History of diabetes Paroxysmal atrial fibrillation Acute kidney injury Plan: Patient continues to improve from pulmonary standpoint, denies any dyspnea, denies any chest congestion, or wheezing. Patient has a CPAP device at home. He continues on oral prednisone, and empiric antibiotics, along with nebulized treatments. He stable for discharge from pulmonary standpoint. I performed a history & physical examination of the patient and discussed their management with my nurse practitioner, Jonelle mAaya. I reviewed the nurse practitioner's note and agree with the documented findings and plan of care. Lung sounds are clear. The findings and the impression was discussed with the patient. I attest to the documentation by the nurse practitioner. Time with Patient: Less than 30
[2017-09-02 11:39] LABS: Glucose,Whole Blood 239 mg/dL (75-99)
[2017-09-02] MEDS: CIPROFLOXACIN HCL 500 MG TAB PO SCH (14:28)
--- NOTE | 2017-09-02 14:45 | PN ---
PROGRESS NOTE DATE OF SERVICE: 09/02/2017 REASON FOR FOLLOWUP: Colitis. INTERVAL HISTORY: The patient is afebrile, he has been breathing comfortably. Denies having any chest pain, no cough, no abdominal pain. His diarrhea has resolved, has had a bowel movement. PHYSICAL EXAMINATION: Blood pressure 127/77 with a pulse of 88, temperature 98.7. He is 98% on room air. General description is a middle-aged male up in the bed in no distress. RESPIRATORY SYSTEM: Unlabored breathing, clear to auscultation. HEART: S1, S2. Regular rate and rhythm. ABDOMEN: Soft, no tenderness. LABS: BUN of 17, creatinine 3.79. DIAGNOSTIC IMPRESSION AND PLAN: Patient with colitis, seemed to have shown clinical improvement with resolution of his diarrhea. No abdominal pain. No white count. PLAN: The patient had received about 10 days of antibiotic therapy. Recommend to discontinue the Cipro and Flagyl on discharge. Continue supportive care. MMODL / IJN: [id number] /
--- NOTE | 2017-09-02 17:10 | P.PN ---
Subjective Progress Note Date: 09/02/17 Principal diagnosis: Colitis and hematuria History this 40 catheter was changed because it was blocked and not draining any urine. Today the urine is bloody and he is passing some clots especially with flushing. Otherwise he denied having any chest pain, shortness of breath, no nausea or vomiting. Objective - Vital Signs Vital signs: Vital Signs Temp 96.3 F L 09/02/17 14:57 Pulse 90 09/02/17 14:57 Resp 18 09/02/17 14:57 BP 157/87 09/02/17 14:57 Pulse Ox 93 L 09/02/17 14:57 Intake & Output 09/01/17 09/02/17 09/02/17 18:59 06:59 18:59 Intake Total 480 Output Total 2375 4000 1200 Balance -1895 -4000 -1200 Weight 131 kg Intake: Oral 480 Output: Urine 2375 4000 1200 Uretheral (Vigil) 0 1850 Other: Voiding Method Indwelling Catheter Indwelling Catheter Indwelling Catheter # Voids 2 - Exam General: Nontoxic, no distress, appears at stated age, obese Derm: warm, dry Head: atraumatic, normocephalic, symmetric Eyes: EOMI, no lid lag, anicteric sclera Mouth: no lip lesion, mucus membranes moist Cardiovascular: S1S2 reg, no murmur, positive posterior tibial pulse bilateral, Lungs: Decreased breath sounds bilateral, no rhonchi, no rales , no accessory muscle use Abdominal: soft, nontender to palpation, no guarding, no appreciable organomegaly, gross hematuria in vigil cath. Ext: no gross muscle atrophy, 2+ edema, no contractures Neuro: CN II-XI grossly intact, no focal neuro deficits Psych: Alert, oriented, appropriate affect - Labs CBC & Chem 7: 08/31/17 06:48 09/02/17 08:47 Labs: Abnormal Lab Results - Last 24 Hours (Table) 09/01/17 09/01/17 09/02/17 Range/Units 17:22 20:48 06:47 BUN (9-20) mg/dL Creatinine (0.66-1.25) mg/dL Glucose (74-99) mg/dL POC Glucose (mg/dL) 261 H 242 H 144 H (75-99) mg/dL 09/02/17 09/02/17 Range/Units 08:47 11:10 BUN 70 H (9-20) mg/dL Creatinine 3.79 H (0.66-1.25) mg/dL Glucose 127 H (74-99) mg/dL POC Glucose (mg/dL) 239 H (75-99) mg/dL Assessment and Plan Plan: Hematuria -Suspected due to Vigil catheter use -Discussed with Dr. Teixeira today, recommended leaving the Vigil catheter in place until urine and clots clear -I communicated that to the patient who verbalized understanding. -Had received 1 dose of Xarelto on 08/23. -Heparin and ASA on hold HTN urgency - Resolved - Continue Norvasc and coreg Acute kidney injury with Oliguira, possible ATN vs. AIN -Cr better today -D/w Ghandi, needs prednisone taper over 1 month--40 mg of prednisone for 3 more days then 30 mg for one week then 20 mg for one week then 10 mg for 3 days in 5 mg 4 days. -Avoid nephrotoxic agents -Monitor renal function daily -Atrophy left kidney noted on CAT scan -Follow urine output closely Colitis -Infectious disease recommendations appreciated -Continue with Cipro and Flagyl---stop date tomorrow -Supportive care -C. diff negative -Stool culture negative Severe COPD with possible underlying obstructive sleep apnea -Pulmonary recommendations -Hypoxic during sleep, qualifies for bipap upon discharge for night time. -Needs walking sats to check for home O2 need upon discharge -Continue with Symbicort, DuoNeb, when necessary bronchodilators Recent ventral hernia surgery repair -Surgery has signed off case Paroxysmal atrial fibrillation -Has maintained normal sinus rhythm -Cardiology recommendations appreciated -No need for anticoagulation at discharge -Follow-up with Dr. Cardoza at discharge Diabetes mellitus type 2 -Follow blood sugars, insulin sliding scale -Metformin, glipizide on hold -Increase levemir to home dose -Hemoglobin A1c 7.4 BPH -Flomax daily DVT prophylaxis: SCDs Discussed with: Patient, care management Anticipated discharge: [address]: home with home health
[2017-09-02 17:29] LABS: Glucose,Whole Blood 274 mg/dL (75-99)
--- NOTE | 2017-09-02 18:51 | PN ---
PROGRESS NOTE Patient is seen for followup for acute kidney injury secondary to possibly acute interstitial nephritis. Patient has been started on oral prednisone. His serum creatinine had improved yesterday to 3.9 and today it is down to 3.79. Patient can be discharged from nephrology standpoint, and we will follow up as outpatient. His previous creatinine was 0.6 on 08/24/2017. Patient states he is voiding well and he has had good oral intake as well. On examination, blood pressure is 157/87, heart rate 90 per minute. He is afebrile. EXAMINATION OF THE HEART: S1, S2. EXAMINATION OF LUNGS: Bilateral breath sounds are heard. ABDOMEN: Soft, non-tender. Examination of lower extremities shows trace edema bilaterally. [employer] exam is grossly intact. Labs show sodium 141, potassium 4.7, BUN 70, serum creatinine 3.79, calcium 9.3. ASSESSMENT: 1. Acute kidney injury, acute tubular necrosis versus acute interstitial nephritis, maintained on prednisone at 40 mg daily, which we can continue for now. Patient will need followup as outpatient in about one week's time. He could be discharged from nephrology standpoint. Recommend decreasing dose of Cipro to 500 mg once a day. 2. Colitis. 3. Urine retention with indwelling Bowden catheter, maintained on Flomax. 4. Hyperkalemia, currently improved. PLAN: We can discontinue the Cipro, as ID feels we can discontinue the antibiotics at discharge. Continue with the prednisone and follow up as outpatient in one week's time. Continue to avoid NSAIDs. MMODL / IJN: [id number] /
[2017-09-02 20:53] LABS: Glucose,Whole Blood 271 mg/dL (75-99)
[2017-09-02] MEDS: INSULIN DETEMIR 100 UNIT/ML 10 ML VIAL SQ SCH (21:32)
--- NOTE | 2017-09-03 06:34 | P.PN ---
Subjective Progress Note Date: 09/03/17 The patient was seen for gross hematuria secondary to catheter trauma. The catheter had to be changed to the other day because of clots from the initial bleeding. The bleeding has subsided and the catheter was removed but he still is not emptying his bladder adequately. If he remains in urine retention then the catheter will need to be replaced and he can go home with a catheter and follow in our office. He has seen in the past so he can either follow him or me. He should go home on Flomax. Objective - Vital Signs Vital signs: Vital Signs Temp 96.3 F L 09/02/17 23:00 Pulse 80 09/02/17 23:00 Resp 14 09/02/17 23:00 BP 154/79 09/02/17 23:00 Pulse Ox 95 09/02/17 23:00 Intake & Output 09/02/17 09/02/17 09/03/17 06:59 18:59 06:59 Output Total 4000 1700 1450 Balance -4000 -1700 -1450 Weight 131 kg Output: Urine 4000 1700 1450 Uretheral (Bowden) 1850 Other: Voiding Method Indwelling Catheter Indwelling Catheter # Voids 2 - Labs CBC & Chem 7: 08/31/17 06:48 09/02/17 08:47 Labs: Abnormal Lab Results - Last 24 Hours (Table) 09/02/17 09/02/17 09/02/17 Range/Units 06:47 08:47 11:10 BUN 70 H (9-20) mg/dL Creatinine 3.79 H (0.66-1.25) mg/dL Glucose 127 H (74-99) mg/dL POC Glucose (mg/dL) 144 H 239 H (75-99) mg/dL 09/02/17 09/02/17 Range/Units 17:27 20:51 BUN (9-20) mg/dL Creatinine (0.66-1.25) mg/dL Glucose (74-99) mg/dL POC Glucose (mg/dL) 274 H 271 H (75-99) mg/dL
[2017-09-03] MEDS: ACETAMINOPHEN TAB 325 MG TAB PO PRN (06:36)
[2017-09-03 07:05] VITALS: BP 144/79; RESP 20; TEMP 97.2
[2017-09-03 07:13] LABS: Glucose,Whole Blood 140 mg/dL (75-99)
[2017-09-03] MEDS: IPRATROPIUM-ALBUTEROL 3 ML NEB INHALATION SCH ×2 (07:40→11:35)
[2017-09-03] MEDS: SYMBICORT 160-4.5 MCG INHALER INHALATION SCH (07:40)
[2017-09-03 07:55] VITALS: PULSE 90
[2017-09-03] MEDS: ALLOPURINOL 100 MG TAB PO SCH (08:14)
[2017-09-03] MEDS: predniSONE 20 MG TAB PO SCH (08:15)
[2017-09-03] MEDS: CARVEDILOL 12.5 MG TAB PO SCH (08:15)
[2017-09-03] MEDS: amLODIPine 10 MG TAB PO SCH (08:15)
[2017-09-03] MEDS: INSULIN ASPART 100 UNIT/ML 1 ML 10 ML VIAL SQ SCH ×2 (08:15→13:21)
[2017-09-03] MEDS: ATORVASTATIN 40 MG TAB PO SCH (08:15)
[2017-09-03] MEDS: TAMSULOSIN 0.4 MG CAP.ER.24H PO SCH (08:15)
[2017-09-03] MEDS: metroNIDAZOLE 500 MG TAB PO SCH (08:15)
[2017-09-03] MEDS: FAMOTIDINE 20 MG TAB PO SCH (08:15)
[2017-09-03] MEDS: traMADol 50 MG TAB PO SCH ×2 (08:21→13:21)
[2017-09-03 09:50] LABS: Basophils % (A) 0 %; Eosinophils # (A) 0.3 k/uL (0-0.7); Eosinophils % (A) 2 %; HCT 43.8 % (39.0-53.0); HGB 14.4 gm/dL (13.0-17.5); Lymphocytes # (A) 1.7 k/uL (1.0-4.8); Lymphocytes % (A) 14 %; MCH 30.3 pg (25.0-35.0); MCV 91.8 fL (80.0-100.0); Mean Platelet Volume 7.4; Monocytes % (A) 8 %; Neutrophils # (A) 9.2 k/uL (1.3-7.7); Neutrophils % (A) 74 %; Platelet Count 359 k/uL (150-450); RBC 4.76 m/uL (4.30-5.90); RDW 12.8 % (11.5-15.5); WBC 12.4 k/uL (3.8-10.6)
[2017-09-03 10:27] LABS: Calcium 9.3 mg/dL (8.4-10.2); Magnesium 1.7 mg/dL (1.6-2.3); Phosphorus 5.1 mg/dL (2.5-4.5); Potassium 4.2 mmol/L (3.5-5.1)
[2017-09-03 12:25] LABS: Glucose,Whole Blood 154 mg/dL (75-99)
--- NOTE | 2017-09-03 13:28 | PN ---
PROGRESS NOTE DATE OF SERVICE: 09/03/2017 REASON FOR FOLLOWUP: Colitis. INTERVAL HISTORY: The patient is afebrile. He is currently breathing comfortably. Denies having any chest pain, shortness of breath, cough. No abdominal pain. His diarrhea has resolved. EXAMINATION: Blood pressure is 144/79 with a pulse of 84, temperature 97.2. He is 94% on 2 L nasal cannula. General description is an elderly male up in the bed in no distress. RESPIRATORY SYSTEM: Unlabored breathing. Clear to auscultation anteriorly. HEART: S1, S2. Regular rate and rhythm. ABDOMEN: Soft, no tenderness. LABS: Hemoglobin 14.4, white count 8.4, BUN of 16, creatinine 3.52. DIAGNOSTIC IMPRESSION AND PLAN: Patient with colitis that has been adequately treated. Antibiotic can be safely discontinued. Advised to follow up with Nephrology and if any recurrence of diarrhea to let us know right away. Continue supportive care. MMODL / IJN: [id number] /
--- NOTE | 2017-09-03 13:41 | P.PN ---
Subjective Patient is seen in follow-up for acute kidney injury. His baseline creatinine is near 1 and peaked at 4.3 this admission - 3.52 today. Patient was noted to have an ileus and had an NG tube in place which was discontinued last week and he is now tolerating a regular diet. Denies abdominal pain. NSAIDs have been discontinued. He's also noted to have colitis for which he is maintained on antibiotics per infectious disease recommendations. He was noted to have urinary retention with over 1 L of urine on bladder scan and now has a Bowden catheter in place. He is nonoliguric. Patient denies any chest pain or shortness of breath. Hemodynamically stable. He is maintained on prednisone for presumed ALLERGIC interstitial nephritis. Vital signs are stable. General: The patient appeared well nourished and normally developed. HEENT: Head exam is unremarkable. Neck is without jugular venous distension. LUNGS: Lungs are clear to auscultation and percussion. Breath sounds decreased. HEART: Rate and Rhythm are regular. First and second heart sounds normal. No murmurs, rubs or gallops. ABDOMEN: Abdominal exam reveals normal bowel sounds. Non-tender and non- distended. No evidence of peritonitis. EXTREMITITES: Trace edema. Objective - Vital Signs Vital signs: Vital Signs Temp 97.2 F L 09/03/17 05:30 Pulse 90 09/03/17 07:54 Resp 20 09/03/17 05:30 BP 144/79 09/03/17 05:30 Pulse Ox 94 L 09/03/17 07:42 Intake & Output 09/02/17 09/03/17 09/03/17 18:59 06:59 18:59 Output Total 1700 1450 2200 Balance -1700 -1450 -2200 Weight 129.5 kg Output: Urine 1700 1450 2200 Other: Voiding Method Indwelling Catheter # Voids 0 - Labs CBC & Chem 7: 09/03/17 08:45 09/03/17 08:45 Labs: Abnormal Lab Results - Last 24 Hours (Table) 09/02/17 09/02/17 09/03/17 Range/Units 17:27 20:51 07:04 WBC (3.8-10.6) k/uL Neutrophils # (1.3-7.7) k/uL Chloride (98-107) mmol/L BUN (9-20) mg/dL Creatinine (0.66-1.25) mg/dL Glucose (74-99) mg/dL POC Glucose (mg/dL) 274 H 271 H 140 H (75-99) mg/dL Phosphorus (2.5-4.5) mg/dL 09/03/17 09/03/17 09/03/17 Range/Units 08:45 08:45 12:23 WBC 12.4 H (3.8-10.6) k/uL Neutrophils # 9.2 H (1.3-7.7) k/uL Chloride 96 L (98-107) mmol/L BUN 69 H (9-20) mg/dL Creatinine 3.52 H (0.66-1.25) mg/dL Glucose 151 H (74-99) mg/dL POC Glucose (mg/dL) 154 H (75-99) mg/dL Phosphorus 5.1 H (2.5-4.5) mg/dL Assessment and Plan Plan: Assessment: #1. Nonoliguric acute kidney injury secondary to ATN secondary to nonsteroidals and vancomycin use. Urinary retention also contributing factor. Also concern for ALLERGIC interstitial nephritis as his urine eosinophils are 4% . Urinalysis is quite benign. No evidence of hydronephrosis noted on CAT scan. He does have left kidney atrophy. Creatinine peaked at 4.3 this admission and is now gradually improving. Creatinine 3.5 today. #2. Colitis maintained on antibiotics per infectious disease recommendations. #3. Ileus. Now on a regular diet. Surgery following. #4. Hypernatremia secondary to lack of oral water intake. Improved. #5. Hypokalemia due to poor oral intake and metabolic alkalosis status post replacement. Magnesium replete. #6. Acute hypercapnic respiratory failure. Improved. #7. Insulin-dependent diabetes mellitus. #8. History of diastolic CHF. Currently compensated. #9. History of BPH maintained on Flomax. #10. Metabolic alkalosis. Partially compensate for underlying respiratory acidosis. Further worsened from hydrogen losses from NG suction. Improved. #11. Urinary retention status post Bowden catheter placement. Plan: Avoid nephrotoxic agents and hypotensive episodes. Toradol and vancomycin has been discontinued. Maintain Bowden catheter for now. Maintain Flomax. Repeat electrolytes in the morning. Due to worsening renal function and positive urine eosinophils, patient was started on prednisone 40 mg daily on August 28. Protonix has also been changed to Pepcid. Stable to be discharged from nephrology standpoint. He'll need to follow-up as an outpatient in the next 1 week.
--- NOTE | 2017-09-03 16:31 | P.DS ---
Providers Date of admission: 08/22/17 14:52 Expected date of discharge: 09/03/17 Attending physician: Madhu Pedraza MD Consults: 08/22/17 14:51 Consult Physician Routine Consulting Provider: Rony Dangelo Consult Reason/Comments: post op care Do you want consulting provider notified?: Yes Consult Physician Stat Consulting Provider: Georgette Kraus Consult Reason/Comments: Hypercarbia Do you want consulting provider notified?: Already Contacted 08/23/17 05:54 Consult Physician Routine Consulting Provider: Omer Osorio Consult Reason/Comments: new afib Do you want consulting provider notified?: Yes 08/24/17 10:51 Consult Physician Stat Consulting Provider: Krystian Mccloud Consult Reason/Comments: sepsis Do you want consulting provider notified?: Yes 08/26/17 09:44 Consult Physician Routine Consulting Provider: Ben Gonzalez Consult Reason/Comments: JUAN J Do you want consulting provider notified?: Yes 08/30/17 09:04 Consult Physician Stat Consulting Provider: Jorge Meza Consult Reason/Comments: hematuria Do you want consulting provider notified?: Yes Primary care physician: Elsi Peterson - Discharge Diagnosis(es) (1) ATN (acute tubular necrosis) Status: Acute (2) Hematuria Status: Acute (3) Hypertensive urgency Status: Acute (4) Colitis Status: Acute (5) COPD, severe Status: Acute (6) AAYUSH (obstructive sleep apnea) Status: Acute (7) Paroxysmal A-fib Status: Acute (8) Toxic metabolic encephalopathy Status: Acute (9) Hypernatremia Status: Acute (10) Acute kidney injury Status: Acute (11) BPH w urinary obs/LUTS Status: Acute (12) Diabetes mellitus Status: Acute (13) Morbid obesity with BMI of 40.0-44.9, adult Status: Acute Hospital Course: Patient is a 66-year-old male with a past medical history of COPD, diabetes, hypertension, and tobacco abuse who presented to the ER with altered mentation and hallucinations. He underwent an extensive evaluation. At that point in time he was found hypercarbia and altered mentation. He underwent a head CT which was negative. EKG showed sinus tachycardia without significant ST -T wave changes. His urinalysis was negative. CPK was slightly elevated. It was felt that this could be due to CO2 retention. He is admitted for further monitoring and care. He was seen by pulmonary who recommended continuing with his supplemental oxygenation, incentive spirometer, and bronchodilators around the clock. They also started him on Lasix. On the night after admission we were called by nursing because the patient had not had a bowel movement or urine output and felt very fatigued. It was felt that he had possible postop ileus from overuse of [place]. Is also noted to have an elevated CPK and acute kidney injury secondary to lack of urine output for over 6 hours. He did spike a fever. At that point in time he was started on IV fluids. Blood culture, urine culture, and abdominal CAT scan were ordered. He then went into A. fib with RVR early on the morning of which converted spontaneously to normal sinus rhythm after a bowel movement. He was seen by pulmonary and was noted to have apneic episode. They're recommending sleep study and placement on BiPAP as needed. He did not have any hallucinations after admission. On 08/[address] of the abdomen and pelvis which showed colitis likely infectious. There was concern for possible sepsis. Infectious disease was consulted and he was placed on vancomycin and Zosyn and Flagyl. Vancomycin was eventually discontinued after blood cultures came back with 1 positive for staph epidermidis. He also had an NG tube placed for possible ileus. Due to aggressive IV fluid rehydration he developed hypernatremia and he was therefore transitioned to 1/2 normal saline. Cardiology was consulted for his episode of A. fib and recommended an echocardiogram and possible anticoagulation. He was continued to monitor on telemetry. His nasogastric tube was able to be discontinued on . On 08/26 he started developing acute kidney injury and nephrology was consulted. A Vigil was placed due to low urine output and urinary retention was found. Nephrology was consulted. His antibiotics were also transitioned to Cipro and Flagyl at that point in time. Despite IV fluids and diuresis will his creatinine continued to increase. His blood pressure remained stable. He was noted to have positive urine eosinophils was therefore started on steroids. His echocardiogram was unrevealing. He did not develop any other additional episodes of A. fib and therefore was determined he will not need chronic anticoagulation. His creatinine continued to rise through . On the afternoon of 08/29 he still had not had any urine output and his Vigil catheter. He was given a bolus of normal saline and still would not have urine output and therefore given a dose of Bumex. He then felt that his bladder was distended and bladder scan revealed greater than 999 mL despite having a Vigil catheter in place. Were not able to flush Vigil catheter with return of urine and therefore that Vigil was removed in an additional one was reinserted. At the time of reinsertion patient had grossly bloody urine that then cleared to tea-colored urine. Overnight on 08/30 he again experienced no urine output through the Vigil catheter. He felt distended again got up and moved around and it seemed as though a clot in the Vigil broke loose resulting in bright red old blood in the Vigil catheter along with clots. Urology was consulted and recommended maintaining Vigil catheter. He again had an episode where his Vigil clotted off on the night of 09/01 and his catheter had to be replaced. His kidney function was improving daily. On the afternoon of urology stated that the Vigil catheter to be discontinued. This was discontinued and patient again had minimal urine output. Urology had suggested if he has urinary retention with a Vigil catheter back in, discharge him home with Vigil to follow-up in one week, and maintain Flomax. His bladder was scanned after voiding and again right greater than 999. Vigil catheter was inserted and he had 2200 mL of urine returned. Patient will be discharged home with a Vigil catheter. We also reviewed his blood sugars and that he cannot currently be on metformin or glipizide due to his elevated creatinine. We will increase his Levemir to help offset this. He will have home health at home to help monitor this. I've also given him dosing instructions on how to increase his Levemir every 3 days of his morning blood sugar is still greater than 125. He had completed his course of antibiotics for colitis. He had not had any recurrent A. fib and will not need any long-term anticoagulation. Will still completely steroid taper for concern for interstitial nephritis. He will follow -up with Dr. Gonzalez in 1 week, with Dr. Marin next week in the office, and Elsi Peterson NP. I've also given him instructions to have a CBC and basic metabolic profile repeated early next week with results to Dr. Gonzalez and Ms. Peterson. He is starting to develop significant lower extremity edema and he'll be resumed on Lasix. Also discussed with patient that there appears to be an old lacunar infarct in that he will need to try to optimize his diabetes regimen and will resume aspirin once cleared by urology. Patient seen and examined at bedside. No chest pain or shortness of breath. Leg slightly painful due to swelling. No nausea or vomiting. No recurrent diarrhea. Discussion as outlined above regarding blood sugars, current medication changes, and need for follow-up. Vital signs reviewed and stable. General: non toxic, no distress, appears at stated age, obese Derm: warm, dry Head: atraumatic, normocephalic, symmetric Eyes: EOMI, no lid lag, anicteric sclera Mouth: no lip lesion, mucus membranes moist Cardiovascular: S1S2 reg, no murmur, positive posterior tibial pulse bilateral, Lungs: CTA bilateral, no rhonchi, no rales , no accessory muscle use Abdominal: soft, nontender to palpation, no guarding, no appreciable organomegaly Ext: no gross muscle atrophy, no edema, no contractures Neuro: CN II-XI grossly intact, no focal neuro deficits Psych: Alert, oriented, appropriate affect A total of 45 minutes of time were spent preparing this complex discharge summary . Pertinent Studies: CT abdomen and pelvis-bowel wall thickening consistent with colitis, possible omental infarct, small right pleural effusion Echo-ejection fraction 50-55%, CT brain-evidence of old lacunar infarct in the external capsule on the left Procedures: None Patient Condition at Discharge: Stable Plan - Discharge Summary Discharge Rx Participant: No New Discharge Prescriptions: New Acetaminophen Tab [Tylenol] 650 mg PO Q6HR PRN tab PRN Reason: Fever And/ Or Pain amLODIPine [Norvasc] 10 mg PO DAILY #30 tab Atorvastatin [Lipitor] 40 mg PO DAILY #30 tab predniSONE 40 mg PO DAILY tab Allopurinol [Zyloprim] 200 mg PO DAILY #30 tab Insulin Detemir [Levemir] 35 unit SQ HS syr Furosemide [Lasix] 60 mg PO DAILY #90 tab Continue [place]-3 Fatty Acids/Fish Oil [Fish Oil 1,000 mg Softgel] 1 cap PO DAILY Carvedilol 25 mg PO BID Tamsulosin [Flomax] 0.4 mg PO DAILY Lisinopril 30 mg PO DAILY Aspirin [Adult Low Dose Aspirin EC] 81 mg PO DAILY Fluticasone/Vilanterol [Breo Ellipta 200-25 Mcg INH] 1 puff INHALATION RT- DAILY Albuterol Inhaler [Ventolin Hfa Inhaler] 3 puff INHALATION RT-BID PRN PRN Reason: Shortness Of Breath Docusate [Colace] 100 mg PO BID #20 capsule Oxymetazoline 0.05% Nasl [place] [Afrin 0.05% Nasal [place]] 3 spray EA NOSTRIL TID PRN PRN Reason: Allergy Symptoms Multivitamins, Thera [Multivitamin (formulary)] 1 tab PO DAILY Albuterol Nebulized [Ventolin Nebulized] 2.5 mg INHALATION RT-QID PRN PRN Reason: Shortness Of Breath HYDROcodone/APAP 7.5-325MG [[place] 7.5-325] 1 tab PO Q4H PRN PRN Reason: Pain Discontinued metFORMIN HCL 1,000 mg PO BID PRN PRN Reason: Blood Sugar - High Insulin Detemir [Levemir] 30 unit SQ DAILY glipiZIDE [Glucotrol] 10 mg PO AC-BID Furosemide [Lasix] 40 mg PO DAILY Allopurinol [Zyloprim] 300 mg PO DAILY Discharge Medication List Albuterol Inhaler [Ventolin Hfa Inhaler] 3 puff INHALATION RT-BID PRN 08/11/17 [ History] Aspirin [Adult Low Dose Aspirin EC] 81 mg PO DAILY 08/11/17 [History] Carvedilol 25 mg PO BID 08/11/17 [History] Fluticasone/Vilanterol [Breo Ellipta 200-25 Mcg INH] 1 puff INHALATION RT-DAILY 08/11/17 [History] Lisinopril 30 mg PO DAILY 08/11/17 [History] [place]-3 Fatty Acids/Fish Oil [Fish Oil 1,000 mg Softgel] 1 cap PO DAILY [History] Tamsulosin [Flomax] 0.4 mg PO DAILY 08/11/17 [History] Docusate [Colace] 100 mg PO BID #20 capsule 08/19/17 [Rx] Albuterol Nebulized [Ventolin Nebulized] 2.5 mg INHALATION RT-QID PRN 08/22/17 [ History] HYDROcodone/APAP 7.5-325MG [[place] 7.5-325] 1 tab PO Q4H PRN 08/22/17 [History] Multivitamins, Thera [Multivitamin (formulary)] 1 tab PO DAILY 08/22/17 [History ] Oxymetazoline 0.05% Nasl [place] [Afrin 0.05% Nasal [place]] 3 spray EA NOSTRIL TID PRN 08/22/17 [History] Acetaminophen Tab [Tylenol] 650 mg PO Q6HR PRN tab 09/02/17 [Rx] Atorvastatin [Lipitor] 40 mg PO DAILY #30 tab 09/02/17 [Rx] amLODIPine [Norvasc] 10 mg PO DAILY #30 tab 09/02/17 [Rx] predniSONE 40 mg PO DAILY tab 09/02/17 [Rx] Allopurinol [Zyloprim] 200 mg PO DAILY #30 tab 09/03/17 [Rx] Furosemide [Lasix] 60 mg PO DAILY #90 tab 09/03/17 [Rx] Insulin Detemir [Levemir] 35 unit SQ HS syr 09/03/17 [Rx] Follow up Appointment(s)/Referral(s): Kenrick Cardoza MD [STAFF PHYSICIAN] - 3 Weeks Mitch Lacey MD [STAFF PHYSICIAN] - 09/10/17 (Dee from office will call you with appointment time. ) Elsi Peterson, LISS [Primary Care Provider] - 1-2 days Raul Borja DO [Doctor of Osteopathic Medicine] - 1 Week Ben Gonzalez DO [STAFF PHYSICIAN] - 1 Week [facility] Vis[facility] Nurse, [NON-STAFF] - Rony Dangelo MD [STAFF PHYSICIAN] - 1 Week Ambulatory/Diagnostic Orders: Basic Metabolic Panel [LAB.AMB] Location: Determined By Patient Patient Instructions/Handouts: Urinary Retention in Men (GEN), Vigil Catheter Placement and Care (DC) Activity/Diet/Wound Care/Special Instructions: Order for rolling walker sent to [facility] - [phone] - needs walker delivered to room prior to discharge Bipap approved through [facility] - if discharged over the weekend call [phone] for delivery of bipap; if discharged on a weekday call [phone] Needs home oxygen assessment prior to discharge - may need home oxygen Maintain vigil until seen by urology. Check blood sugar every morning, if your morning blood sugar is greater than 125 for 2 days in a row increase your levemir by 2 units. Continue cycle until blood sugar in the morning is less than 125. Off aspirin until seen by Dr. Lacey low sodium diet activity as tolerated Discharge Disposition: HOME WITH HOME HEALTH SERVICES
--- NOTE | 2017-09-07 06:29 | CDI ---
Last Revision, April 2017 Documentation Clarification Form Date: 09/07/17 From: Carola Talbot Mackenzie Pichardo, [employer] ,Hours - 8:30 am & 5 pm Marisol Admit Date: 08/22/2017 2:52:00 PM Patient Name: Gene Zuleta Visit Number: [id number] Discharge Date: 09/03/17 ATTENTION: The Clinical Documentation Specialists (CDI) and [facility] Coding Staff appreciate your assistance in clarifying documentation. Please respond to the clarification below the line at the bottom and electronically sign. The CDI & [facility] Coding staff will review the response and follow-up if needed. Please note: Queries are made part of the Legal Health Record. If you have any questions, please contact the author of this message via ITS. Dr. Omkar Mariano Per your 08/29 progress note "He does have chronic kidney disease based on a CT scan which shows left atrophy kidney." In addition, acute kidney injury from a combination of Vancomycin and nonsteroidals as well as possible element of prerenal. Acute interstitial nephritis. Current BUN: 38, 33, 24, 23, 30, 38, 43, 46, 56, 67, 75, 78, 70, 69 Current CR: .87, .80, .60, .64, 1.00, 2.31, 3.12, 3.92, 4.32, 4.30, 4.17, 3.98, 3.79, 3.52 Current GFR: >90, >90,>90, >90, 78, 28, 20, 15, 13, 13, 14, 15, 16, 17 Patients Baseline: CR: is near 1 Treatment: IV Fluids, Prednisone In order to capture the severity of CKD, please clarify if the CKD signifies: CKD Stage 1 (GFR > 90) CKD Stage 2 (GFR 60-89) CKD Stage 3 (GFR 30-59) CKD Stage 4 (GFR 15-29) CKD Stage 5 (GFR <15) ESRD Other, please specify ___CKD I Unable to determine Please continue to document in your progress notes and discharge summary in order to capture severity of illness and risk of mortality. Include clinical findings that support your diagnosis. MTDD
== END 2017-09-03 14:16 | disposition home health service (06) | DRG 189 ==
LOC: EC 10:31 → 6SEL 14:52 → 4MS4W 08-31 20:57
PROVIDERS: ADMIT Internal Medicine; ATTEND Internal Medicine
PROC: 5A09557 Assistance with Respiratory Ventilation, Greater than 96 Consecutive Hours, Continuous Positive Airway Pressure (ICD-10-PCS; 2017-08-23)
PROC: 0D9670Z Drainage of Stomach with Drainage Device, Via Natural or Artificial Opening (ICD-10-PCS; principal; 2017-08-24)
DX: J96.22 Acute and chronic respiratory failure with hypercapnia (principal); G92 Toxic encephalopathy; N17.0 Acute kidney failure with tubular necrosis; E87.4 Mixed disorder of acid-base balance; E87.0 Hyperosmolality and hypernatremia; I13.0 Hypertensive heart and chronic kidney disease with heart failure and stage 1 through stage 4 chronic kidney disease, or unspecified chronic kidney disease; I50.32 Chronic diastolic (congestive) heart failure; N13.8 Other obstructive and reflux uropathy; K56.7 Ileus, unspecified; J44.1 Chronic obstructive pulmonary disease with (acute) exacerbation; Z68.41 Body mass index [BMI] 40.0-44.9, adult; K91.89 Other postprocedural complications and disorders of digestive system; A09 Infectious gastroenteritis and colitis, unspecified; N10 Acute pyelonephritis; E66.01 Morbid (severe) obesity due to excess calories; J96.21 Acute and chronic respiratory failure with hypoxia; T19.0XXA Foreign body in urethra, initial encounter; I95.9 Hypotension, unspecified; E11.22 Type 2 diabetes mellitus with diabetic chronic kidney disease; I48.0 Paroxysmal atrial fibrillation; F20.9 Schizophrenia, unspecified; E83.42 Hypomagnesemia; E11.65 Type 2 diabetes mellitus with hyperglycemia; E87.5 Hyperkalemia; E86.0 Dehydration; N14.1 Nephropathy induced by other drugs, medicaments and biological substances; N18.1 Chronic kidney disease, stage 1; T50.8X5A Adverse effect of diagnostic agents, initial encounter; R31.0 Gross hematuria; N40.1 Benign prostatic hyperplasia with lower urinary tract symptoms; T39.395A Adverse effect of other nonsteroidal anti-inflammatory drugs [NSAID], initial encounter; N26.1 Atrophy of kidney (terminal); I16.0 Hypertensive urgency; T36.8X5A Adverse effect of other systemic antibiotics, initial encounter; F17.210 Nicotine dependence, cigarettes, uncomplicated; F32.9 Major depressive disorder, single episode, unspecified; E78.5 Hyperlipidemia, unspecified; G47.33 Obstructive sleep apnea (adult) (pediatric); M54.9 Dorsalgia, unspecified; E87.6 Hypokalemia; Z71.6 Tobacco abuse counseling; Z79.82 Long term (current) use of aspirin; Z79.899 Other long term (current) drug therapy; Z79.4 Long term (current) use of insulin; Z98.890 Other specified postprocedural states; Z79.51 Long term (current) use of inhaled steroids; Z86.73 Personal history of transient ischemic attack (TIA), and cerebral infarction without residual deficits; Z96.60 Presence of unspecified orthopedic joint implant; Z88.5 Allergy status to narcotic agent; Z88.8 Allergy status to other drugs, medicaments and biological substances; Z91.040 Latex allergy status; Z91.041 Radiographic dye allergy status
CPT/HCPCS: 36415; 36600; 70450; 71045; 71046; 74018; 74022; 74176; 80048; 80053; 80202; 80306; 81001; 81003; 82550; 82553; 82805; 83036; 83605; 83735; 83880; 84100; 84439; 84443; 84484; 85025; 85027; 85610; 85730; 87040; 87045; 87046; 87077; 87186; 87205; 87324; 87493; 93005; 93306; 94640; 94660; 94760; 94762; 99285

== ENCOUNTER 2017-09-08 22:55 | Emergency (ER) | payer MEDICARE ==
[2017-09-08 23:24] VITALS: TEMP 97.8
--- NOTE | 2017-09-08 23:36 | ED ---
General Adult HPI - General Chief complaint: Recheck/Abnormal Lab/Rx Stated complaint: Catheter issue Time Seen by Provider: 09/08/17 23:34 Source: patient, RN notes reviewed, old records reviewed Mode of arrival: wheelchair Limitations: no limitations - History of Present Illness Initial comments: This is a 66-year-old male the ER for evaluation. Patient states he had [place] catheter earlier today after procedure, patient states when catheter was taken out now he cannot void, patient here for severe bowel pain and inability to void - Related Data Home Medications Medication Instructions Recorded Confirmed Albuterol Inhaler [Ventolin Hfa 3 puff INHALATION RT-BID PRN 08/11/17 08/22/17 Inhaler] Aspirin [Adult Low Dose Aspirin EC] 81 mg PO DAILY 08/11/17 08/22/17 Carvedilol 25 mg PO BID 08/11/17 08/22/17 Fluticasone/Vilanterol [Breo 1 puff INHALATION RT-DAILY 08/11/17 08/22/17 Ellipta 200-25 Mcg INH] Lisinopril 30 mg PO DAILY 08/11/17 08/22/17 [place]-3 Fatty Acids/Fish Oil [Fish 1 cap PO DAILY 08/11/17 08/22/17 Oil 1,000 mg Softgel] Tamsulosin [Flomax] 0.4 mg PO DAILY 08/11/17 08/22/17 Albuterol Nebulized [Ventolin 2.5 mg INHALATION RT-QID PRN 08/22/17 08/22/17 Nebulized] HYDROcodone/APAP 7.5-325MG [[place] 1 tab PO Q4H PRN 08/22/17 08/22/17 7.5-325] Multivitamins, Thera [Multivitamin 1 tab PO DAILY 08/22/17 08/22/17 (formulary)] Oxymetazoline 0.05% Nasl [place] 3 spray EA NOSTRIL TID PRN 08/22/17 08/22/17 [Afrin 0.05% Nasal [place]] Previous Rx's Medication Instructions Recorded Docusate [Colace] 100 mg PO BID #20 capsule 08/19/17 Acetaminophen Tab [Tylenol] 650 mg PO Q6HR PRN tab 09/02/17 predniSONE 40 mg PO DAILY tab 09/02/17 Allopurinol [Zyloprim] 200 mg PO DAILY #30 tab 09/03/17 Atorvastatin [Lipitor] 40 mg PO HS #30 tablet 09/03/17 Furosemide [Lasix] 60 mg PO DAILY #90 tab 09/03/17 Insulin Detemir [Levemir] 35 unit SQ HS syr 09/03/17 amLODIPine [Norvasc] 10 mg PO DAILY #30 tablet 09/03/17 predniSONE 0 mg PO DIRECTED #50 tab 09/03/17 Allergies Allergy/AdvReac Type Severity Reaction Status Date / Time codeine Allergy Unknown Verified 09/08/17 23:23 iodine Allergy "i could Verified 09/08/17 23:23 not move for 3 weeks" latex Allergy Rash/Hives/ Verified 09/08/17 23:23 blisters nitrous oxide Allergy Vomiting Verified 09/08/17 23:23 Review of Systems ROS Statement: Those systems with pertinent positive or pertinent negative responses have been documented in the HPI. ROS Other: All systems not noted in ROS Statement are negative. Past Medical History Past Medical History: COPD, Diabetes Mellitus, Hypertension History of Any Multi-Drug Resistant Organisms: None Reported Past Surgical History: Back Surgery, Hernia Repair, Joint Replacement, Orthopedic Surgery Past Anesthesia/Blood Transfusion Reactions: No Reported Reaction Past Psychological History: No Psychological Hx Reported Smoking Status: Former smoker Past Alcohol Use History: None Reported Past Drug Use History: None Reported - Past Family History Father Family Medical History: Cancer General Exam Limitations: no limitations General appearance: alert, in no apparent distress Head exam: Present: atraumatic, normocephalic, normal inspection Eye exam: Present: normal appearance, PERRL, EOMI. Absent: scleral icterus, conjunctival injection, periorbital swelling ENT exam: Present: normal exam, mucous membranes moist Neck exam: Present: normal inspection. Absent: tenderness, meningismus, lymphadenopathy Respiratory exam: Present: normal lung sounds bilaterally. Absent: respiratory distress, wheezes, rales, rhonchi, stridor Cardiovascular Exam: Present: regular rate, normal rhythm, normal heart sounds. Absent: systolic murmur, diastolic murmur, rubs, gallop, clicks GI/Abdominal exam: Present: soft, normal bowel sounds. Absent: distended, tenderness, guarding, rebound, rigid Extremities exam: Present: normal inspection, full ROM, normal capillary refill. Absent: tenderness, pedal edema, joint swelling, calf tenderness Back exam: Present: normal inspection Neurological exam: Present: alert, oriented X3, CN II-XII intact Psychiatric exam: Present: normal affect, normal mood Skin exam: Present: warm, dry, intact, normal color. Absent: rash Course Vital Signs 09/08/17 23:21 Temperature 97.8 F Pulse Rate 92 Respiratory 20 Rate Blood Pressure 72/44 O2 Sat by Pulse 95 Oximetry - Reevaluation(s) Reevaluation #1: 09/08/17 23:35 Bowden catheter is replaced without difficulty Medical Decision Making - Medical Decision Making 66 male, [place] Catheter is replaced, patient can be discharged home Disposition Clinical Impression: Bowedn catheter problem, Urinary retention Disposition: HOME SELF-CARE Condition: Good Instructions: Bowden Catheter Placement and Care (ED), Urinary Retention in Men (ED) Is patient prescribed a controlled substance at d/c from ED?: No Referrals: Leslee Piña DO [Primary Care Provider] - 1-2 days
[2017-09-09 01:16] VITALS: BP 89/58; PULSE 88; RESP 18
== END 2017-09-09 01:11 | disposition home or self-care (01) ==
LOC: SUPCPDRO 22:55 → EC 22:55
DX: T83.84XA Pain due to genitourinary prosthetic devices, implants and grafts, initial encounter (principal); R33.9 Retention of urine, unspecified; J44.9 Chronic obstructive pulmonary disease, unspecified; I10 Essential (primary) hypertension; Z87.891 Personal history of nicotine dependence; Z98.890 Other specified postprocedural states; Z79.82 Long term (current) use of aspirin; Z79.02 Long term (current) use of antithrombotics/antiplatelets; Z79.51 Long term (current) use of inhaled steroids; Z79.899 Other long term (current) drug therapy; Z88.5 Allergy status to narcotic agent; Z91.048 Other nonmedicinal substance allergy status; Z91.040 Latex allergy status; Y84.6 Urinary catheterization as the cause of abnormal reaction of the patient, or of later complication, without mention of misadventure at the time of the procedure
CPT/HCPCS: 51702; 99283

== ENCOUNTER → 2017-09-14 | Outpatient (CLI) | payer MEDICARE ==
[2017-09-14 17:49] LABS: Calcium 9.6 mg/dL (8.4-10.2); Potassium 5.6 mmol/L (3.5-5.1)
== END ==
LOC: LABWHC1 17:15
PROVIDERS: ATTEND Internal Medicine
DX: N17.9 Acute kidney failure, unspecified (principal)
CPT/HCPCS: 36415; 80048

== ENCOUNTER → 2017-09-24 | Outpatient (CLI) | payer MEDICARE ==
[2017-09-24 14:38] LABS: Basophils % (A) 0 %; Eosinophils # (A) 0.3 k/uL (0-0.7); Eosinophils % (A) 3 %; HCT 44.1 % (39.0-53.0); HGB 14.2 gm/dL (13.0-17.5); Lymphocytes # (A) 1.3 k/uL (1.0-4.8); Lymphocytes % (A) 14 %; MCH 29.9 pg (25.0-35.0); MCHC 32.1 g/dL (31.0-37.0); MCV 93.1 fL (80.0-100.0); Mean Platelet Volume 7.2; Monocytes # (A) 0.5 k/uL (0-1.0); Monocytes % (A) 5 %; Neutrophils # (A) 7.7 k/uL (1.3-7.7); Neutrophils % (A) 78 %; Platelet Count 187 k/uL (150-450); RBC 4.74 m/uL (4.30-5.90); RDW 13.2 % (11.5-15.5); WBC 9.9 k/uL (3.8-10.6)
[2017-09-24 14:46] LABS: Albumin 3.7 g/dL (3.5-5.0); Calcium 9.6 mg/dL (8.4-10.2); Potassium 5.1 mmol/L (3.5-5.1); Total Bilirubin 0.5 mg/dL (0.2-1.3); Total Protein 6.1 g/dL (6.3-8.2)
[2017-09-24 18:35] LABS: Iron Saturation 42.68 (15.00-50.00)
[2017-09-24 18:45] LABS: Vitamin D 25 Hydroxy 27.2 ng/mL (30.0-100.0)
== END | disposition home or self-care (01) ==
LOC: LABWHC1 13:50
PROVIDERS: ATTEND Nurse Practitioner Family
DX: N17.9 Acute kidney failure, unspecified (principal); D64.9 Anemia, unspecified; E55.9 Vitamin D deficiency, unspecified
CPT/HCPCS: 36415; 80053; 82043; 82306; 82570; 82728; 83540; 83550; 85025

== ENCOUNTER → 2017-09-30 | Outpatient (CLI) | payer MEDICARE ==
[2017-09-30 12:26] LABS: Basophils % (A) 0 %; Eosinophils # (A) 0.3 k/uL (0-0.7); Eosinophils % (A) 3 %; HCT 40.2 % (39.0-53.0); HGB 13.1 gm/dL (13.0-17.5); Lymphocytes # (A) 1.8 k/uL (1.0-4.8); Lymphocytes % (A) 22 %; MCHC 32.7 g/dL (31.0-37.0); Mean Platelet Volume 7.4; Monocytes # (A) 0.5 k/uL (0-1.0); Monocytes % (A) 6 %; Neutrophils # (A) 5.5 k/uL (1.3-7.7); Neutrophils % (A) 66 %; Platelet Count 237 k/uL (150-450); RBC 4.37 m/uL (4.30-5.90); RDW 13.5 % (11.5-15.5); WBC 8.3 k/uL (3.8-10.6)
[2017-09-30 12:41] LABS: Albumin 3.5 g/dL (3.5-5.0); Calcium 9.3 mg/dL (8.4-10.2); Total Bilirubin 0.5 mg/dL (0.2-1.3)
[2017-09-30 13:15] LABS: Amorphous Sediment,Urine Rare /hpf; Appearance,Urine Cloudy (Clear); Bacteria,Urine Rare /hpf; Bilirubin,Urine Negative (Negative); Blood,Urine Small (Negative); Color,Urine Yellow; Glucose,Urine (UA) Negative (Negative); Ketones,Urine Negative (Negative); Leukocyte Esterase,Urine Moderate (Negative); Mucus,Urine Rare /hpf; Nitrite,Urine Negative (Negative); Protein,Urine 3+ (Negative); RBC,Urine 29 /hpf (0-5); Specific Gravity,Urine 1.011 (1.001-1.035); Urobilinogen,Urine <2.0 mg/dL (<2.0); WBC,Urine 28 /hpf (0-5)
== END | disposition home or self-care (01) ==
LOC: LABPAT 11:33
PROVIDERS: ATTEND Urology
DX: Z01.812 Encounter for preprocedural laboratory examination (principal); E11.9 Type 2 diabetes mellitus without complications; R35.0 Frequency of micturition; R31.29 Other microscopic hematuria; N40.1 Benign prostatic hyperplasia with lower urinary tract symptoms; R33.9 Retention of urine, unspecified; I10 Essential (primary) hypertension; Z79.899 Other long term (current) drug therapy
CPT/HCPCS: 36415; 80053; 81001; 85025; 87086

== ENCOUNTER 2017-10-03 21:18 | Inpatient (IN) | payer MEDICARE ==
[2017-10-03] MEDS ORDERED: SODIUM CHLORIDE 0.9% 1,000 ML IV STA (22:43)
--- NOTE | 2017-10-03 22:49 | ED ---
General Adult HPI - General Chief complaint: Urogenital Stated complaint: catheter blockage Time Seen by Provider: 10/03/17 21:44 Source: patient, RN notes reviewed, old records reviewed Mode of arrival: ambulatory Limitations: no limitations - History of Present Illness Initial comments: Chief complaint and history of present illness this is a 66-year-old male to complaint of decreased urine output through his Bowden catheter since 10 AM. The patient had ventral surgery 7 weeks ago and since then has not been able to have Catheter removed. After having had a removed twice and had to be replaced. The patient noticed that around 2 AM this morning after having had a catheter in for the past week he felt some pain noticed some blood. He is not sure if he didn't accidentally pull on the catheter causing the bleeding. At 10 AM the catheter was removed and another one was placed. Patient reports for the first time replacement of the catheter was painful. Since that time the patient has produced only 250 ML's of dark colored urine. Bladder scan showed only 170 ML's in the bladder. He complains of some discomfort in the suprapubic region. Also upon arrival to emergency room the patient's blood pressure was 90/52. He states he was put on medications including lisinopril which dropped his blood pressure significantly. The patient is not diaphoretic and on reexamination his blood pressure dropped into the mid 80s. Patient again was not having any complaints he was placed in Trendelenburg and IV has been started the patient is receiving IV fluids. Denies feeling dizzy or chest pain or any other problems. - Related Data Home Medications Medication Instructions Recorded Confirmed Albuterol Inhaler [Ventolin Hfa 3 puff INHALATION RT-BID PRN 08/11/17 09/29/17 Inhaler] Carvedilol 25 mg PO BID 08/11/17 09/29/17 Fluticasone/Vilanterol [Breo 1 puff INHALATION RT-DAILY 08/11/17 09/29/17 Ellipta 200-25 Mcg INH] Lisinopril 20 mg PO HS 08/11/17 09/29/17 Tamsulosin [Flomax] 0.4 mg PO BID 08/11/17 09/29/17 Albuterol Nebulized [Ventolin 2.5 mg INHALATION RT-QID PRN 08/22/17 09/29/17 Nebulized] Multivitamins, Thera [Multivitamin 1 tab PO DAILY 08/22/17 09/29/17 (formulary)] Oxymetazoline 0.05% Nasl [place] 3 spray EA NOSTRIL TID PRN 08/22/17 09/29/17 [Afrin 0.05% Nasal [place]] Allopurinol [Zyloprim] 100 mg PO BID 09/29/17 09/29/17 Cranberry 4200 Mg 4,200 mg PO DAILY 09/29/17 Furosemide [Lasix] 40 mg PO DAILY 09/29/17 09/29/17 HYDROcodone/APAP 10-325MG [[place] 1 tab PO Q6HR PRN 09/29/17 09/29/17 10-325] INSULIN LISPRO (humaLOG) [humaLOG] 5 units SQ AC-TID PRN 09/29/17 09/29/17 Insulin Degludec [Tresiba 40 unit SQ HS 09/29/17 09/29/17 Flextouch U-100] [place]-3 Fatty Acids/Fish Oil [Fish 1 each PO HS 09/29/17 09/29/17 Oil 1,000 mg Softgel] Tiotropium [place] [Spiriva] 1 cap INHALATION DAILY 09/29/17 09/29/17 predniSONE 5 mg PO DAILY 09/29/17 09/29/17 Previous Rx's Medication Instructions Recorded Docusate [Colace] 100 mg PO BID #20 capsule 08/19/17 Atorvastatin [Lipitor] 40 mg PO HS #30 tablet 09/03/17 Allergies Allergy/AdvReac Type Severity Reaction Status Date / Time codeine Allergy Unknown Verified 10/03/17 21:43 iodine Allergy "i could Verified 10/03/17 21:43 not move for 3 weeks" latex Allergy Rash/Hives/ Verified 10/03/17 21:43 blisters nitrous oxide Allergy Vomiting Verified 10/03/17 21:43 Review of Systems ROS Statement: Those systems with pertinent positive or pertinent negative responses have been documented in the HPI. Review of systems no headache no chest pain mild suprapubic discomfort no nausea no vomiting. All systems reviewed. Past medical problems ;COPD, diabetes mellitus and hypertension. Surgeries back surgery ventral hernia repair, joint replacement. The patient's former smoker no alcohol use. ROS Other: All systems not noted in ROS Statement are negative. Past Medical History Past Medical History: COPD, Diabetes Mellitus, Hypertension History of Any Multi-Drug Resistant Organisms: None Reported Past Surgical History: Back Surgery, Hernia Repair, Joint Replacement, Orthopedic Surgery Past Anesthesia/Blood Transfusion Reactions: No Reported Reaction Past Psychological History: No Psychological Hx Reported Smoking Status: Former smoker - Past Family History Father Family Medical History: Cancer General Exam - General Exam Comments Initial Comments: General: The patient is awake and alert, with a complaint of his Bowden catheter not putting as much urine as it had been putting out earlier. It was replaced this morning at 10 AM his only had 240 ML's in the collecting bag and the bladder scan had only 170 in the bladder. Patient does report that the replacement of the Bowden catheter this morning was painful. It needed to be replaced because the previous catheter that he had for the previous week had some blood in it at 2 AM but then that cleared as well. Eye: Pupils are equal, round and reactive to light, extra-ocular movements are intact ; there is normal conjunctiva bilaterally. No signs of icterus. Ears, nose, mouth and throat: There are moist mucous membranes and no oral lesions. Neck: The neck is supple, Cardiovascular: There is a regular rate and rhythm. No murmur, rub or gallop is appreciated. Respiratory: Lungs are clear to auscultation, respirations are non-labored, breath sounds are equal. No wheezes, stridor, rales, or rhonchi. Gastrointestinal: Patient has an indwelling Bowden catheter. She irrigated by the nurse and only one half of what one then came out. It was blood-tinged. Examination of the abdomen finds possible ventral hernia supraumbilical area. Back: There is no tenderness to palpation in the midline. There is no obvious deformity. No rashes noted. Musculoskeletal: No complaint of back pain Neurological: No neuro deficits Skin is warm and dry and no rashes or lesions are noted. Limitations: no limitations Course Vital Signs 10/03/17 10/03/17 10/04/17 21:38 23:05 00:17 Temperature 98.7 F 97.6 F Pulse Rate 100 88 91 Respiratory 20 18 18 Rate Blood Pressure 90/52 93/51 99/52 O2 Sat by Pulse 96 96 95 Oximetry Procedures - Procedures Initial comment: Procedure; the patient had his current Bowden catheter removed and a new silicone 16-Uzbek catheter was placed without difficulty urine jet use. Clear urine noted. The catheter was sunk to itself and then the balloon was filled with 10 ML's normal saline. Attached to a fresh bag. Dr. Ribeiro Medical Decision Making - Medical Decision Making Medical decision making; this is a 66-year-old male here with some difficulty with urine output in his Bowden catheter which is replaced this morning. A new catheter was placed. The patient's blood pressure was in the 80 systolic range she was given IV fluids. Currently 117 systolic. The patient's labs show white count of 8.7 hemoglobin 13 hematocrit 41 with a potassium 4.9. BUN 64 creatinine 2.4 the GFR 27. Glucose 151. Urine shows positive leukoesterase, 31 reds, 39 whites. The patient's BUN and creatinine have gone up in the past 2 weeks. With worsening of the GFR. The patient be placed on oral Bactrim. Admitted to the hospital for further evaluation and rehydration. Replacement of Bowden catheter was done without difficulty. Clear mildly yellow urine was removed. While in emergency room the patient urine output was 150. I discussed with the patient his hypotension while in emergency room which responded to IV fluids. He'll be admitted to Dr. Anthony with consultation from nephrology. - Lab Data Result diagrams: 10/03/17 22:25 10/03/17 22:25 Lab Results 10/03/17 10/03/17 10/03/17 Range/Units 22:25 22:25 22:25 WBC 8.7 (3.8-10.6) k/uL RBC 4.47 (4.30-5.90) m/uL Hgb 13.6 (13.0-17.5) gm/dL Hct 41.2 (39.0-53.0) % MCV 92.3 (80.0-100.0) fL MCH 30.4 (25.0-35.0) pg MCHC 32.9 (31.0-37.0) g/dL RDW 13.9 (11.5-15.5) % Plt Count 230 (150-450) k/uL Neutrophils % 62 % Lymphocytes % 25 % Monocytes % 6 % Eosinophils % 3 % Basophils % 0 % Neutrophils # 5.4 (1.3-7.7) k/uL Lymphocytes # 2.1 (1.0-4.8) k/uL Monocytes # 0.6 (0-1.0) k/uL Eosinophils # 0.2 (0-0.7) k/uL Basophils # 0.0 (0-0.2) k/uL Sodium 138 (137-145) mmol/L Potassium 4.9 (3.5-5.1) mmol/L Chloride 98 (98-107) mmol/L Carbon Dioxide 27 (22-30) mmol/L Anion Gap 13 mmol/L BUN 64 H (9-20) mg/dL Creatinine 2.40 H (0.66-1.25) mg/dL Est GFR (CKD-EPI)AfAm 31 (>60 ml/min/1.73 sqM) Est GFR (CKD-EPI)NonAf 27 (>60 ml/min/1.73 sqM) Glucose 151 H (74-99) mg/dL Calcium 9.6 (8.4-10.2) mg/dL Urine Color Yellow Urine Appearance Cloudy (Clear) Urine pH 6.0 (5.0-8.0) Ur Specific [place] 1.010 (1.001-1.035) Urine Protein 2+ H (Negative) Urine Glucose (UA) Negative (Negative) Urine Ketones Negative (Negative) Urine Blood Moderate H (Negative) Urine Nitrite Negative (Negative) Urine Bilirubin Negative (Negative) Urine Urobilinogen <2.0 (<2.0) mg/dL Ur Leukocyte Esterase Moderate H (Negative) Urine RBC 31 H (0-5) /hpf Urine WBC 39 H (0-5) /hpf Urine WBC Clumps Rare H (None) /hpf Ur Squamous Epith Cells 1 (0-4) /hpf Amorphous Sediment Rare H (None) /hpf Urine Bacteria Few H (None) /hpf Hyaline Casts 18 H (0-2) /lpf Urine Mucus Rare H (None) /hpf Disposition Clinical Impression: Chronic renal failure, stage 3 (moderate), Decreased urine output, Urinary tract infection, BPH (benign prostatic hyperplasia) Disposition: ADMITTED IP TO THIS [facility] Condition: Serious Referrals: Elsi Peterson PAC [REFERRING] - 1-2 days
[2017-10-03 23:20] LABS: Basophils % (A) 0 %; Eosinophils # (A) 0.2 k/uL (0-0.7); Eosinophils % (A) 3 %; HCT 41.2 % (39.0-53.0); HGB 13.6 gm/dL (13.0-17.5); Lymphocytes # (A) 2.1 k/uL (1.0-4.8); Lymphocytes % (A) 25 %; MCH 30.4 pg (25.0-35.0); MCHC 32.9 g/dL (31.0-37.0); MCV 92.3 fL (80.0-100.0); Mean Platelet Volume 6.9; Monocytes # (A) 0.6 k/uL (0-1.0); Monocytes % (A) 6 %; Neutrophils # (A) 5.4 k/uL (1.3-7.7); Neutrophils % (A) 62 %; Platelet Count 230 k/uL (150-450); RBC 4.47 m/uL (4.30-5.90); RDW 13.9 % (11.5-15.5); WBC 8.7 k/uL (3.8-10.6)
[2017-10-03] MEDS ORDERED: LIDOCAINE URO-JET JELLY 2% 5 ML KIT URETHRAL ONE (23:26)
[2017-10-03 23:30] LABS: Calcium 9.6 mg/dL (8.4-10.2); Potassium 4.9 mmol/L (3.5-5.1)
[2017-10-03 23:49] LABS: Amorphous Sediment,Urine Rare /hpf; Appearance,Urine Cloudy (Clear); Bacteria,Urine Few /hpf; Bilirubin,Urine Negative (Negative); Blood,Urine Moderate (Negative); Color,Urine Yellow; Glucose,Urine (UA) Negative (Negative); Hyaline Casts,Urine 18 /lpf (0-2); Ketones,Urine Negative (Negative); Leukocyte Esterase,Urine Moderate (Negative); Mucus,Urine Rare /hpf; Nitrite,Urine Negative (Negative); Protein,Urine 2+ (Negative); RBC,Urine 31 /hpf (0-5); Squamous Epithelial Cell,Urine 1 /hpf (0-4); Urobilinogen,Urine <2.0 mg/dL (<2.0); WBC,Urine 39 /hpf (0-5)
[2017-10-04] MEDS ORDERED: SULFAMETH-TMP DS STARTER PACK 2 TAB BTL PO STA (00:43)
[2017-10-04] MEDS ORDERED: NALOXONE 0.4 MG/ML 1 ML VIAL IV PRN (00:46)
[2017-10-04] MEDS ORDERED: ALBUTEROL INHALER 60 PUFF/8 GM INHALER INHALATION PRN (00:52)
[2017-10-04] MEDS ORDERED: OXYMETAZOLINE 0.05% NASL SPRAY 1 SPRAY BOTTLE EA NOSTRIL PRN (00:52)
[2017-10-04] MEDS ORDERED: ALBUTEROL NEBULIZED 2.5 MG/3 ML INHALATION PRN (00:52)
[2017-10-04] MEDS ORDERED: INSULIN ASPART 100 UNIT/ML 1 ML 10 ML VIAL SQ PRN (00:52)
[2017-10-04] MEDS: SODIUM CHLORIDE 0.9% 1,000 ML IV SCH ×3 (01:07→22:08)
[2017-10-04 01:46] VITALS: BMI 36.7
[2017-10-04] MEDS: ACETAMINOPHEN TAB 325 MG TAB PO PRN ×3 (02:07→13:57)
[2017-10-04 05:55] LABS: Glucose,Whole Blood 179 mg/dL (75-99)
--- NOTE | 2017-10-04 06:41 | XR ---
EXAMINATION TYPE: XR KUB portable DATE OF EXAM: 10/03/2017 11:24 PM CLINICAL HISTORY: Pain per order. Blocked catheter TECHNIQUE: Two Upright KUB images of the abdomen are obtained. COMPARISON: CT abdomen and pelvis and abdominal x-ray August 24, 2017.. FINDINGS: There is some paucity of bowel gas. Gas is noted in nondistended stomach, and scattered sma ll and large bowel loops. Bowden catheter overlies the pubic symphysis. Lung bases are clear. No pneum operitoneum or suspicious calcification is seen. Moderate joint space loss and spurring of both hip j oints is present. Spurring throughout the spine is redemonstrated. IMPRESSION: Overall nonobstructive bowel gas pattern.
[2017-10-04] MEDS: INSULIN ASPART 100 UNIT/ML 1 ML 10 ML VIAL SQ SCH ×3 (07:06→17:36)
[2017-10-04] MEDS: IPRATROPIUM 0.5 MG/2.5 ML NEBU INHALATION SCH ×4 (07:10→19:47)
[2017-10-04] MEDS: SYMBICORT 160-4.5 MCG INHALER INHALATION SCH ×2 (07:10→19:47)
[2017-10-04] MEDS: DOCUSATE 100 MG CAP PO SCH ×2 (08:34→22:06)
[2017-10-04] MEDS ORDERED: SULFAMETHOX-TMP 800-160MG 1 EACH TAB PO SCH (09:00)
[2017-10-04] MEDS ORDERED: FUROSEMIDE 40 MG TAB PO SCH (09:00)
[2017-10-04] MEDS ORDERED: predniSONE 5 MG TAB PO SCH (09:00)
[2017-10-04 11:17] LABS: Basophils % (A) 0 %; Eosinophils # (A) 0.2 k/uL (0-0.7); Eosinophils % (A) 3 %; Lymphocytes # (A) 1.4 k/uL (1.0-4.8); Lymphocytes % (A) 21 %; MCH 30.6 pg (25.0-35.0); MCHC 33.3 g/dL (31.0-37.0); MCV 92.1 fL (80.0-100.0); Mean Platelet Volume 6.7; Monocytes # (A) 0.5 k/uL (0-1.0); Monocytes % (A) 7 %; Neutrophils # (A) 4.3 k/uL (1.3-7.7); Neutrophils % (A) 65 %; Platelet Count 223 k/uL (150-450); RBC 4.24 m/uL (4.30-5.90); RDW 13.8 % (11.5-15.5); WBC 6.6 k/uL (3.8-10.6)
--- NOTE | 2017-10-04 11:18 | P.HPIM ---
History of Present Illness H&P Date: 10/04/17 Gene Zuleta is a 66-year-old male who presented to [facility] emergency room due to poor urine output and dark urine was blood clots in his Bowden catheter back. Patient states that on August 19 he had a hernia surgery, since then he has not been able to urinate, he has required Bowden catheter placement, catheter has been replaced repeatedly, he has seen Dr. Morrow and is scheduled for Possible urethral surgery. Patient stated that he was traveling for his grandson wedding, he noticed that he was tired and had low urine output in his Bowden catheter bag with dark urine , he called his nurse and had the catheter replaced without significant improvement he decided to come to emergency room. In the emergency room patient was evaluated by Dr. Ribeiro, he had evidence of urinary tract infection, evidence of hypotension, and evidence of acute renal failure his BUN was 64 and creatinine 2.4, his BUN and creatinine were normal on August 19, 2017 he was started on IV fluid IV antibiotics and was admitted to telemetry floor. Past Medical History Past Medical History: COPD, Diabetes Mellitus, Hypertension, Prostate Disorder History of Any Multi-Drug Resistant Organisms: None Reported Past Surgical History: Back Surgery, Hernia Repair, Joint Replacement, Orthopedic Surgery Past Anesthesia/Blood Transfusion Reactions: No Reported Reaction Past Psychological History: No Psychological Hx Reported Smoking Status: Former smoker Past Alcohol Use History: None Reported Past Drug Use History: None Reported - Past Family History Father Family Medical History: Cancer Mother Family Medical History: Diabetes Mellitus Medications and Allergies Home Medications Medication Instructions Recorded Confirmed Type Albuterol Inhaler [Ventolin Hfa 3 puff INHALATION RT-BID PRN 08/11/17 10/04/17 History Inhaler] Carvedilol 25 mg PO BID 08/11/17 10/04/17 History Fluticasone/Vilanterol [Breo 1 puff INHALATION RT-DAILY 08/11/17 10/04/17 History Ellipta 200-25 Mcg INH] Lisinopril 20 mg PO HS 08/11/17 10/04/17 History Tamsulosin [Flomax] 0.4 mg PO BID 08/11/17 10/04/17 History Albuterol Nebulized [Ventolin 2.5 mg INHALATION RT-QID PRN 08/22/17 10/04/17 History Nebulized] Multivitamins, Thera [Multivitamin 1 tab PO DAILY 08/22/17 10/04/17 History (formulary)] Oxymetazoline 0.05% Nasl [place] 3 spray EA NOSTRIL TID PRN 08/22/17 10/04/17 History [Afrin 0.05% Nasal [place]] Atorvastatin [Lipitor] 40 mg PO HS #30 tablet 09/03/17 10/04/17 Rx Allopurinol [Zyloprim] 100 mg PO BID 09/29/17 10/04/17 History Cranberry 4200 Mg 4,200 mg PO DAILY 09/29/17 10/04/17 History Furosemide [Lasix] 60 mg PO DAILY 09/29/17 10/04/17 History HYDROcodone/APAP 10-325MG [[place] 1 tab PO Q6HR PRN 09/29/17 10/04/17 History 10-325] INSULIN LISPRO (humaLOG) [humaLOG] 5 units SQ AC-TID 09/29/17 10/04/17 History [place]-3 Fatty Acids/Fish Oil [Fish 1 each PO HS 09/29/17 10/04/17 History Oil 1,000 mg Softgel] Tiotropium [place] [Spiriva] 1 cap INHALATION DAILY 09/29/17 10/04/17 History predniSONE 10 mg PO DAILY 09/29/17 10/04/17 History Insulin Detemir [Levemir] 40 unit SQ HS 10/04/17 10/04/17 History Allergies Allergy/AdvReac Type Severity Reaction Status Date / Time codeine Allergy Unknown Verified 10/03/17 21:43 iodine Allergy "i could Verified 10/03/17 21:43 not move for 3 weeks" latex Allergy Rash/Hives/ Verified 10/03/17 21:43 blisters nitrous oxide Allergy Vomiting Verified 10/03/17 21:43 Physical Exam Vitals: Vital Signs Temp Pulse Pulse Resp BP BP Pulse Ox 10/04/17 08:00 97.6 F 99 18 103/58 94 L 10/04/17 07:23 86 10/04/17 07:12 84 96 10/04/17 03:40 98.1 F 98 18 114/55 91 L 10/04/17 01:38 97.1 F L 98 18 117/61 93 L 06/03/18 01:30 97.1 F L 98 18 117/61 93 L 10/04/17 01:08 97.5 F L 96 16 103/53 95 10/04/17 00:17 97.6 F 91 18 99/52 95 10/03/17 23:05 88 18 93/51 96 10/03/17 21:38 98.7 F 100 20 90/52 96 Intake and Output 10/03/17 10/04/17 10/04/17 22:59 06:59 14:59 Intake Total 240 Output Total 013 170 3347 Balance -225 -350 -760 Intake: Oral 240 Output: Urine 252 910 7682 Uretheral (Bowden) 100 Other: Voiding Method Indwelling Catheter Indwelling Catheter Indwelling Catheter Weight 116.573 kg 116.2 kg In general patient is alert and oriented 3 in no apparent distress HEENT head normocephalic and atraumatic Neck is supple no JVD no goiter no lymphadenopathy Chest exam reveals a few scattered crackles no wheezing Cardiac exam reveals regular heart sounds no murmurs Abdomen is soft nontender no organomegaly Extremity exam reveals no edema no cyanosis or clubbing Neurological examination reveals no gross focal deficit Results CBC & Chem 7: 10/03/17 22:25 10/03/17 22:25 Labs: Abnormal Lab Results - Last 24 Hours (Table) 10/03/17 10/03/17 10/04/17 Range/Units 22:25 22:25 05:53 BUN 64 H (9-20) mg/dL Creatinine 2.40 H (0.66-1.25) mg/dL Glucose 151 H (74-99) mg/dL POC Glucose (mg/dL) 179 H (75-99) mg/dL Urine Protein 2+ H (Negative) Urine Blood Moderate H (Negative) Ur Leukocyte Esterase Moderate H (Negative) Urine RBC 31 H (0-5) /hpf Urine WBC 39 H (0-5) /hpf Urine WBC Clumps Rare H (None) /hpf Amorphous Sediment Rare H (None) /hpf Urine Bacteria Few H (None) /hpf Hyaline Casts 18 H (0-2) /lpf Urine Mucus Rare H (None) /hpf Thrombosis Risk Factor Assmnt - Choose All That Apply Each Factor Represents 1 point: Abnormal pulmonary function (COPD) Each Risk Factor Represents 2 Points: Age 61-74 years Thrombosis Risk Factor Assessment Total Risk Factor Score: 3 Thrombosis Risk Factor Assessment Level: Moderate Risk Assessment and Plan Plan: #1 urinary tract infection #2 sepsis with hypotension #3 dehydration with acute renal failure due to prerenal azotemia and possible component of obstructive uropathy #4 recent hernia surgery in August 2017 #5 underlying history of insulin-dependent diabetes mellitus #6 Underlying history of diastolic congestive heart failure #7 Known history of benign prostatic hypertrophy maintained on Flomax At this time will discontinue Bactrim Obtain urine culture Start patient on IV Rocephin, Continue with IV hydration Obtain ultrasound of the kidneys Nephrology and urology consultation requested
[2017-10-04 11:26] LABS: Albumin 3.4 g/dL (3.5-5.0); Calcium 9.4 mg/dL (8.4-10.2); Potassium 5.1 mmol/L (3.5-5.1); Total Bilirubin 0.4 mg/dL (0.2-1.3); Total Protein 5.8 g/dL (6.3-8.2)
[2017-10-04] MEDS: cefTRIAXone IN SWFI 1,000 MG/10 ML SYRINGE IVP SCH (11:31)
[2017-10-04 12:14] LABS: Glucose,Whole Blood 179 mg/dL (75-99)
--- NOTE | 2017-10-04 13:11 | US ---
EXAMINATION TYPE: US kidneys/renal and bladder DATE OF EXAM: 10/04/2017 COMPARISON: NONE CLINICAL HISTORY: acute renal failure. EXAM MEASUREMENTS: Right Kidney: 13.7 x 6.4 x 6.7 cm Left Kidney: 8.3 x 3.3 x 4.5 cm Patient of large body habitus Right Kidney: echogenic foci x 2 measuring 2mm, possible stones vs calcified arteries Left Kidney: lobular surface, atrophied, Bladder: vigil Bilateral Jets seen: no Asymmetric atrophy left kidney is redemonstrated with diminished size. Prominence of left renal pelvi s without calyceal dilatation is redemonstrated. The urinary bladder is poorly distended and thus sub optimally evaluated as Vigil catheter is in place. Right kidney is enlarged in size without hydroneph rosis. A few tiny hyperechoic foci could reflect vascular calcification or tiny stones and correlate with recent CT. IMPRESSION: Asymmetric atrophy of left kidney is redemonstrated. No hydronephrosis is evident bilaterally.
[2017-10-04 17:21] LABS: Glucose,Whole Blood 141 mg/dL (75-99)
--- NOTE | 2017-10-04 17:22 | CONS ---
CONSULTATION REASON FOR CONSULT: Renal failure. HISTORY OF PRESENT ILLNESS: Patient is a 66-year-old male who was admitted to the hospital with complaints of a blood clot in the urine. Patient states he had a Bowden catheter placed about 3 weeks ago. He follows with Dr. Meza as outpatient and was scheduled to have a prostatic surgery recently. He denies any prior history of kidney disease. Serum creatinine was at 2.4 mg/dL on admission. Review of previous labs shows creatinine down to 1.4 on September 24 and previously at 0.6 mg/dL on 08/24/2017. The patient states he was feeling very weak. He is currently maintained on IV fluids and states he is feeling much better now. There is no gross blood in the Bowden catheter. Urine culture, urinalysis is suggestive of underlying urinary tract infection. PAST MEDICAL HISTORY: Recent acute kidney injury, appears to be mostly obstructive, status post Bowden catheter placement about 3 weeks ago, COPD, type 2 diabetes, BPH, hypertension, osteoarthritis. PAST SURGICAL HISTORY: Back surgery, hernia surgery. SOCIAL HISTORY: Negative for smoking, drug abuse or alcohol abuse. MEDICATIONS: Medications at home included: Coreg, lisinopril, Flomax, Lipitor, Zyloprim, Lasix, Vicodin, insulin, prednisone, Spiriva. ALLERGIES: ALLERGIES INCLUDE CODEINE, IODINE, LATEX, NITROUS OXIDE. EXAMINATION: Patient is currently comfortable awake. He is alert and oriented x3. He is not in any acute distress. Blood pressure is 103/58, heart rate 80 per minute. He is afebrile. Examination of the heart S1, S2. Examination of the lungs bilateral breath sounds are heard. Abdomen is soft, nontender. Examination of lower extremities shows no evidence of edema. STORE [employer]ER exam is grossly intact. LAB: Sodium 139, potassium 5.1, chloride 103, BUN 52, serum creatinine 1.6, hemoglobin 13.0 g/dL. Albumin was 3.4, calcium 9.4. UA shows 2+ protein, moderate blood, 39 WBCs, WBC clumps were also noted, hyaline casts and bacteria. KUB was unremarkable. ASSESSMENT: 1. Acute kidney injury, prerenal, currently maintained on IV fluids. Patient was also hypotensive and was on AJAY inhibitors prior to admission, which is now on hold. I will hold off on the Lasix as well for now and continue with the IV fluids and continue to hold off on the AJAY inhibitors. The patient is maintained on Bactrim. If the renal function does not improve, we will need to discontinue the Bactrim. 2. Obstructive uropathy status post Bowden catheter placement about 3 weeks ago, being followed by Urology. Patient was scheduled to have urological surgery in the next 2-3 days as outpatient. 3. Pyuria and urine culture is pending. Patient is maintained on Bactrim, which we can continue. However, if the renal function is not better, we should discontinue the Bactrim and switch to Cipro or Rocephin. 4. Atrophy of the left kidney noted on ultrasound with left kidney at 8.3 in right kidney at 13.7 cm. 5. Thank you for this consultation. We will continue to follow the patient with you during his hospitalization. [email or web address] / IJN: [id number] /
[2017-10-04 20:51] LABS: Glucose,Whole Blood 193 mg/dL (75-99)
[2017-10-04] MEDS: INSULIN DETEMIR 100 UNIT/ML 10 ML VIAL SQ SCH (22:06)
[2017-10-05 07:07] LABS: Glucose,Whole Blood 108 mg/dL (75-99)
[2017-10-05] MEDS: IPRATROPIUM 0.5 MG/2.5 ML NEBU INHALATION SCH ×4 (07:08→19:10)
[2017-10-05] MEDS: SYMBICORT 160-4.5 MCG INHALER INHALATION SCH ×2 (07:09→19:10)
[2017-10-05 08:32] LABS: Basophils % (A) 1 %; Eosinophils # (A) 0.2 k/uL (0-0.7); Eosinophils % (A) 3 %; HCT 38.5 % (39.0-53.0); HGB 12.5 gm/dL (13.0-17.5); Lymphocytes # (A) 1.5 k/uL (1.0-4.8); Lymphocytes % (A) 22 %; MCH 29.8 pg (25.0-35.0); MCHC 32.3 g/dL (31.0-37.0); MCV 92.2 fL (80.0-100.0); Mean Platelet Volume 6.9; Monocytes # (A) 0.4 k/uL (0-1.0); Monocytes % (A) 6 %; Neutrophils # (A) 4.5 k/uL (1.3-7.7); Neutrophils % (A) 66 %; Platelet Count 231 k/uL (150-450); RBC 4.18 m/uL (4.30-5.90); RDW 13.6 % (11.5-15.5); WBC 6.8 k/uL (3.8-10.6)
[2017-10-05 08:47] LABS: Albumin 3.2 g/dL (3.5-5.0); Calcium 9.4 mg/dL (8.4-10.2); Potassium 4.4 mmol/L (3.5-5.1); Total Bilirubin 0.3 mg/dL (0.2-1.3); Total Protein 5.6 g/dL (6.3-8.2)
[2017-10-05] MEDS: cefTRIAXone IN SWFI 1,000 MG/10 ML SYRINGE IVP SCH (09:17)
[2017-10-05] MEDS: SODIUM CHLORIDE 0.9% 1,000 ML IV SCH ×2 (09:17→17:25)
[2017-10-05] MEDS: INSULIN ASPART 100 UNIT/ML 1 ML 10 ML VIAL SQ SCH ×3 (09:17→17:25)
[2017-10-05] MEDS: DOCUSATE 100 MG CAP PO SCH ×2 (09:17→21:46)
--- NOTE | 2017-10-05 10:09 | P.PN ---
Subjective Progress Note Date: 10/05/17 Gene Zuleta is a 66-year-old male who presented to [facility] emergency room due to poor urine output and dark urine was blood clots in his Bowden catheter back. Patient states that on August 19 he had a hernia surgery, since then he has not been able to urinate, he has required Bowden catheter placement, catheter has been replaced repeatedly, he has seen Dr. Morrow and is scheduled for Possible urethral surgery. Patient stated that he was traveling for his grandson wedding, he noticed that he was tired and had low urine output in his Bowden catheter bag with dark urine , he called his nurse and had the catheter replaced without significant improvement he decided to come to emergency room. In the emergency room patient was evaluated by Dr. Ribeiro, he had evidence of urinary tract infection, evidence of hypotension, and evidence of acute renal failure his BUN was 64 and creatinine 2.4, his BUN and creatinine were normal on August 19, 2017 he was started on IV fluid IV antibiotics and was admitted to telemetry floor. 10/05/2017 patient reports feeling better. Is currently on IV Rocephin for the UTI. Nephrology is following. Awaiting urology consult. Patient denies any chest pain or shortness breath. Denies any nausea or vomiting. Denies any bowel movement changes. Bowden catheter in place. Objective - Vital Signs Vital signs: Vital Signs Temp 98.2 F 10/05/17 05:30 Pulse 92 10/05/17 07:20 Resp 16 10/05/17 05:30 BP 115/58 10/05/17 05:30 Pulse Ox 96 10/05/17 07:09 Intake & Output 10/04/17 10/05/17 10/05/17 18:59 06:59 18:59 Intake Total 480 Output Total 2700 1800 Balance -0 -1800 Intake: Oral 480 Output: Urine 2700 1800 Other: Voiding Method Indwelling Catheter Indwelling Catheter # Bowel Movements 0 - Exam Head normocephalic Neck supple Lungs clear to auscultation bilaterally no wheezing or crackles Heart regular rate and rhythm S1-S2, no rub or gallop Abdomen is soft nontender nondistended positive bowel sounds no hepatosplenomegaly Extremities no edema Neuro alert and orientated to 3 - Labs CBC & Chem 7: 10/05/17 08:10/05/17 08:03 Labs: Abnormal Lab Results - Last 24 Hours (Table) 10/04/17 10/04/17 10/04/17 Range/Units 11:05 11:05 11:52 RBC 4.24 L (4.30-5.90) m/uL Hgb (13.0-17.5) gm/dL Hct (39.0-53.0) % BUN 52 H (9-20) mg/dL Creatinine 1.60 H (0.66-1.25) mg/dL Glucose 162 H (74-99) mg/dL POC Glucose (mg/dL) 179 H (75-99) mg/dL Alkaline Phosphatase 135 H (38-126) U/L Total Protein 5.8 L (6.3-8.2) g/dL Albumin 3.4 L (3.5-5.0) g/dL 10/04/17 10/04/17 10/05/17 Range/Units 17:11 20:50 06:56 RBC (4.30-5.90) m/uL Hgb (13.0-17.5) gm/dL Hct (39.0-53.0) % BUN (9-20) mg/dL Creatinine (0.66-1.25) mg/dL Glucose (74-99) mg/dL POC Glucose (mg/dL) 141 H 193 H 108 H (75-99) mg/dL Alkaline Phosphatase (38-126) U/L Total Protein (6.3-8.2) g/dL Albumin (3.5-5.0) g/dL 10/05/17 10/05/17 Range/Units 08:03 08:03 RBC 4.18 L (4.30-5.90) m/uL Hgb 12.5 L (13.0-17.5) gm/dL Hct 38.5 L (39.0-53.0) % BUN 33 H (9-20) mg/dL Creatinine 1.28 H (0.66-1.25) mg/dL Glucose 139 H (74-99) mg/dL POC Glucose (mg/dL) (75-99) mg/dL Alkaline Phosphatase 137 H (38-126) U/L Total Protein 5.6 L (6.3-8.2) g/dL Albumin 3.2 L (3.5-5.0) g/dL Microbiology - Last 24 Hours (Table) 10/04/17 13:50 Urine Culture - Preliminary Urine,Catheterized Assessment and Plan Assessment: #1 urinary tract infection with sepsis likely related to indwelling Bowden catheter: Await urine culture. Continue IV Rocephin. #2 sepsis with hypotension. Blood pressures are showing improvement. #3 dehydration with acute renal failure due to prerenal azotemia and possible component of obstructive uropathy. Nephrology is following. AJAY inhibitor and Lasix are currently on hold. #4 recent hernia surgery in August 2017 #5 underlying history of insulin-dependent diabetes mellitus #6 Underlying history of diastolic congestive heart failure #7 Known history of benign prostatic hypertrophy maintained on Flomax at home. #8 possible obstructive uropathy with indwelling Bowden catheter: Await urology consult. Patient was scheduled for urological surgery outpatient in the next 2- 3 days. DVT prophylaxis subcu heparin I performed an examination of the patient and discussed their management with the physician [employer] Manager. I have reviewed the Physician Caravan [employer] And Camping [employer] Manager's notes and agree with the documented findings and plan of care
[2017-10-05 12:03] LABS: Glucose,Whole Blood 144 mg/dL (75-99)
[2017-10-05] MEDS: MULTIVITAMINS, THERA 1 EACH TAB PO SCH (12:36)
[2017-10-05 14:01] LABS: Hemoglobin A1C 9.9 % (4.0-6.0)
[2017-10-05 17:12] LABS: Glucose,Whole Blood 126 mg/dL (75-99)
--- NOTE | 2017-10-05 18:28 | P.GSCN ---
History of Present Illness Consult date: 10/05/17 Reason for Consult: Urinary Retention, UTI Requesting physician: Carlos Enrique Anthnoy History of present illness: The patient is a 66-year-old male who underwent a robotic-assisted laparoscopic inguinal hernia repair in August 2017. He had a complicated postoperative course, which included the development of urinary retention. He was evaluated by Dr. Meza and is scheduled to undergo a TURP in October 07, 2017. He currently has an indwelling Bowden catheter in place. He was admitted over the weekend with gross hematuria and fatigue. His pre-operative urine culture has shown Enterobacter, resistant to all oral antibiotics. Review of Systems - Constitutional Reports fatigue, Denies fever - Gastrointestinal Denies nausea, Denies vomiting - Genitourinary Reports hematuria Past Medical History Past Medical History: COPD, Diabetes Mellitus, Hypertension, Prostate Disorder History of Any Multi-Drug Resistant Organisms: None Reported Past Surgical History: Back Surgery, Hernia Repair, Joint Replacement, Orthopedic Surgery Past Anesthesia/Blood Transfusion Reactions: No Reported Reaction Past Psychological History: No Psychological Hx Reported Smoking Status: Former smoker Past Alcohol Use History: None Reported Past Drug Use History: None Reported - Past Family History Father Family Medical History: Cancer Mother Family Medical History: Diabetes Mellitus Medications and Allergies Home Medications Medication Instructions Recorded Confirmed Type Albuterol Inhaler [Ventolin Hfa 3 puff INHALATION RT-BID PRN 08/11/17 10/04/17 History Inhaler] Carvedilol 25 mg PO BID 08/11/17 10/04/17 History Fluticasone/Vilanterol [Breo 1 puff INHALATION RT-DAILY 08/11/17 10/04/17 History Ellipta 200-25 Mcg INH] Lisinopril 30 mg PO HS 08/11/17 10/04/17 History Tamsulosin [Flomax] 0.4 mg PO BID 08/11/17 10/04/17 History Albuterol Nebulized [Ventolin 2.5 mg INHALATION RT-QID PRN 08/22/17 10/04/17 History Nebulized] Multivitamins, Thera [Multivitamin 1 tab PO DAILY 08/22/17 10/04/17 History (formulary)] Oxymetazoline 0.05% Nasl [place] 3 spray EA NOSTRIL TID PRN 08/22/17 10/04/17 History [Afrin 0.05% Nasal [place]] Atorvastatin [Lipitor] 40 mg PO HS #30 tablet 09/03/17 10/04/17 Rx Allopurinol [Zyloprim] 100 mg PO BID 09/29/17 10/04/17 History Furosemide [Lasix] 60 mg PO DAILY 09/29/17 10/04/17 History HYDROcodone/APAP 10-325MG [Amite 1 tab PO Q6HR PRN 09/29/17 10/04/17 History 10-325] INSULIN LISPRO (humaLOG) [humaLOG] 5 units SQ AC-TID 09/29/17 10/04/17 History [place]-3 Fatty Acids/Fish Oil [Fish 1 cap PO HS 09/29/17 10/04/17 History Oil 1,000 mg Softgel] Tiotropium [place] [Spiriva] 1 cap INHALATION RT-DAILY 09/29/17 10/04/17 History predniSONE 10 mg PO DAILY 09/29/17 10/04/17 History [place] Unknown Dose 2 cap PO BID 10/04/17 10/04/17 History Insulin Detemir [Levemir] 40 unit SQ HS 10/04/17 10/04/17 History Allergies Allergy/AdvReac Type Severity Reaction Status Date / Time codeine Allergy Unknown Verified 10/04/17 12:30 iodine Allergy "i could Verified 10/04/17 12:30 not move for 3 weeks" latex Allergy Rash/Hives/ Verified 10/04/17 12:30 blisters nitrous oxide Allergy Vomiting Verified 10/04/17 12:30 Surgical - Exam Vital Signs Temp Pulse Resp BP Pulse Ox 98.7 F 100 20 90/52 96 10/03/17 21:38 10/03/17 21:38 10/03/17 21:38 10/03/17 21:38 10/03/17 21:38 - General well developed, well nourished, no distress - Respiratory normal respiratory effort - Abdomen Abdomen: soft, non tender, no guarding, no rigid, no rebound - Genitourinary normal penis with no external lesions, testicles non-tender Results - Labs 10/05/17 08:03 10/05/17 08:03 Abnormal Lab Results - Last 24 Hours (Table) 10/04/17 10/04/17 10/04/17 Range/Units 11:05 11:05 11:52 RBC 4.24 L (4.30-5.90) m/uL BUN 52 H (9-20) mg/dL Creatinine 1.60 H (0.66-1.25) mg/dL Glucose 162 H (74-99) mg/dL POC Glucose (mg/dL) 179 H (75-99) mg/dL Alkaline Phosphatase 135 H (38-126) U/L Total Protein 5.8 L (6.3-8.2) g/dL Albumin 3.4 L (3.5-5.0) g/dL 10/04/17 10/04/17 Range/Units 17:11 20:50 RBC (4.30-5.90) m/uL BUN (9-20) mg/dL Creatinine (0.66-1.25) mg/dL Glucose (74-99) mg/dL POC Glucose (mg/dL) 141 H 193 H (75-99) mg/dL Alkaline Phosphatase (38-126) U/L Total Protein (6.3-8.2) g/dL Albumin (3.5-5.0) g/dL Microbiology - Last 24 Hours (Table) 10/04/17 13:50 Urine Culture - Preliminary Urine,Catheterized Diabetes panel 10/04/17 Range/Units 11:05 Sodium 139 (137-145) mmol/L Potassium 5.1 (3.5-5.1) mmol/L Chloride 103 (98-107) mmol/L Carbon Dioxide 27 (22-30) mmol/L BUN 52 H (9-20) mg/dL Creatinine 1.60 H (0.66-1.25) mg/dL Glucose 162 H (74-99) mg/dL Calcium 9.4 (8.4-10.2) mg/dL AST 26 (17-59) U/L ALT 33 (21-72) U/L Alkaline Phosphatase 135 H (38-126) U/L Total Protein 5.8 L (6.3-8.2) g/dL Albumin 3.4 L (3.5-5.0) g/dL Calcium panel 10/04/17 Range/Units 11:05 Calcium 9.4 (8.4-10.2) mg/dL Albumin 3.4 L (3.5-5.0) g/dL Pituitary panel 10/04/17 Range/Units 11:05 Sodium 139 (137-145) mmol/L Potassium 5.1 (3.5-5.1) mmol/L Chloride 103 (98-107) mmol/L Carbon Dioxide 27 (22-30) mmol/L BUN 52 H (9-20) mg/dL Creatinine 1.60 H (0.66-1.25) mg/dL Glucose 162 H (74-99) mg/dL Calcium 9.4 (8.4-10.2) mg/dL Adrenal panel 10/04/17 Range/Units 11:05 Sodium 139 (137-145) mmol/L Potassium 5.1 (3.5-5.1) mmol/L Chloride 103 (98-107) mmol/L Carbon Dioxide 27 (22-30) mmol/L BUN 52 H (9-20) mg/dL Creatinine 1.60 H (0.66-1.25) mg/dL Glucose 162 H (74-99) mg/dL Calcium 9.4 (8.4-10.2) mg/dL Total Bilirubin 0.4 (0.2-1.3) mg/dL AST 26 (17-59) U/L ALT 33 (21-72) U/L Alkaline Phosphatase 135 H (38-126) U/L Total Protein 5.8 L (6.3-8.2) g/dL Albumin 3.4 L (3.5-5.0) g/dL Assessment and Plan (1) Urinary tract infection Current Visit: Yes Status: Acute Code(s): N39.0 - URINARY TRACT INFECTION, SITE NOT SPECIFIED SNOMED Code(s): 44206945 (2) Urinary retention due to benign prostatic hyperplasia Current Visit: Yes Status: Acute Code(s): N40.1 - BENIGN PROSTATIC HYPERPLASIA WITH LOWER URINARY TRACT SYMP; R33.8 - OTHER RETENTION OF URINE SNOMED Code(s): 882478259 Plan: As stated, the patient has an indwelling Bowden catheter and is scheduled to undergo a TURP in October 07, 2017. He is currently receiving Rocephin, and I would suggest he continue to receive this perioperatively.
--- NOTE | 2017-10-05 18:50 | PN ---
PROGRESS NOTE Patient is seen for followup for acute kidney injury. He is currently doing much better. Serum creatinine has improved significantly. It is down to 1.28 from 2.4 on initial admission. Patient is maintained on IV fluids. On examination, blood pressure is 118/68, heart rate 86 per minute. Patient is afebrile. EXAMINATION OF THE HEART: S1, S2. EXAMINATION OF LUNGS: Bilateral breath sounds are heard. ABDOMEN: Soft, non-tender. Examination of lower extremities shows no evidence of edema. SENIOR SQL DEVELOPER exam is grossly intact. Labs show sodium 144, potassium 4.4, BUN 33, serum creatinine 1.28, hemoglobin 12.5 g/dL. ASSESSMENT: 1. Acute kidney injury, prerenal, currently improved. I will decrease the IV fluids to 50 mL/hour. 2. Benign prostatic hypertrophy/obstructive uropathy with indwelling Bowden catheter; scheduled for surgery as outpatient by Dr. Meza in 2 days. 3. Hypertension, currently controlled. 4. Left renal atrophy noted on ultrasound. No clinical evidence of renal artery stenosis. 5. Type 2 diabetes, maintained on insulin. 6. Pyuria with urine culture currently pending. This could be secondary to the indwelling catheter as well. PLAN: Decrease IV fluids. Patient is stable for discharge from nephrology standpoint. MMODL / IJN: [id number] /
[2017-10-05 21:13] LABS: Glucose,Whole Blood 138 mg/dL (75-99)
[2017-10-05] MEDS: INSULIN DETEMIR 100 UNIT/ML 10 ML VIAL SQ SCH (21:45)
[2017-10-05] MEDS: HEPARIN SODIUM,PORCINE 5,000 UNIT/ML 1 ML VIAL SQ SCH (21:46)
[2017-10-06] MEDS: IPRATROPIUM 0.5 MG/2.5 ML NEBU INHALATION SCH ×4 (07:12→19:32)
[2017-10-06] MEDS: SYMBICORT 160-4.5 MCG INHALER INHALATION SCH ×2 (07:13→19:32)
[2017-10-06 07:18] LABS: Glucose,Whole Blood 119 mg/dL (75-99)
[2017-10-06] MEDS: INSULIN ASPART 100 UNIT/ML 1 ML 10 ML VIAL SQ SCH ×3 (07:29→17:27)
[2017-10-06 07:56] LABS: Basophils % (A) 0 %; Eosinophils # (A) 0.2 k/uL (0-0.7); Eosinophils % (A) 3 %; HCT 39.2 % (39.0-53.0); HGB 12.7 gm/dL (13.0-17.5); Lymphocytes # (A) 1.5 k/uL (1.0-4.8); Lymphocytes % (A) 25 %; MCH 30.2 pg (25.0-35.0); MCHC 32.5 g/dL (31.0-37.0); MCV 92.9 fL (80.0-100.0); Mean Platelet Volume 6.8; Monocytes # (A) 0.4 k/uL (0-1.0); Monocytes % (A) 7 %; Neutrophils # (A) 3.7 k/uL (1.3-7.7); Neutrophils % (A) 62 %; Platelet Count 219 k/uL (150-450); RBC 4.22 m/uL (4.30-5.90); RDW 13.7 % (11.5-15.5)
[2017-10-06] MEDS: MULTIVITAMINS, THERA 1 EACH TAB PO SCH (08:01)
[2017-10-06] MEDS: DOCUSATE 100 MG CAP PO SCH ×2 (08:01→20:47)
[2017-10-06] MEDS: cefTRIAXone IN SWFI 1,000 MG/10 ML SYRINGE IVP SCH (08:01)
[2017-10-06] MEDS: HEPARIN SODIUM,PORCINE 5,000 UNIT/ML 1 ML VIAL SQ SCH ×2 (08:02→20:46)
[2017-10-06 08:05] LABS: ALT 32 U/L (21-72); AST 24 U/L (17-59); Albumin 3.4 g/dL (3.5-5.0); Alkaline Phosphatase 138 U/L (38-126); Anion Gap 10 mmol/L; Blood Urea Nitrogen 23 mg/dL (9-20); Calcium 9.9 mg/dL (8.4-10.2); Carbon Dioxide 27 mmol/L (22-30); Chloride 106 mmol/L (98-107); Glucose 118 mg/dL (74-99); Potassium 4.6 mmol/L (3.5-5.1); Sodium 143 mmol/L (137-145); Total Bilirubin 0.4 mg/dL (0.2-1.3); Total Protein 5.8 g/dL (6.3-8.2)
--- NOTE | 2017-10-06 12:10 | P.PN ---
Subjective Progress Note Date: 10/06/17 Gene Zuleta is a 66-year-old male who presented to [facility] emergency room due to poor urine output and dark urine was blood clots in his Bowden catheter back. Patient states that on August 19 he had a hernia surgery, since then he has not been able to urinate, he has required Bowden catheter placement, catheter has been replaced repeatedly, he has seen Dr. Morrow and is scheduled for Possible urethral surgery. Patient stated that he was traveling for his grandson wedding, he noticed that he was tired and had low urine output in his Bowden catheter bag with dark urine , he called his nurse and had the catheter replaced without significant improvement he decided to come to emergency room. In the emergency room patient was evaluated by Dr. Ribeiro, he had evidence of urinary tract infection, evidence of hypotension, and evidence of acute renal failure his BUN was 64 and creatinine 2.4, his BUN and creatinine were normal on August 19, 2017 he was started on IV fluid IV antibiotics and was admitted to telemetry floor. 10/05/2017 patient reports feeling better. Is currently on IV Rocephin for the UTI. Nephrology is following. Awaiting urology consult. Patient denies any chest pain or shortness breath. Denies any nausea or vomiting. Denies any bowel movement changes. Bowden catheter in place. 10/06/2017 patient sitting up in bed. Has no new complaints. He is scheduled for the TURP procedure tomorrow. Kidney functions have improved creatinine is 0.92. His lisinopril Lasix remain on hold. Urine culture growing gram- negative bacilli. Patient denies any chest pain or shortness of breath. Denies any nausea or vomiting. Reports regular bowel movements. Has Bowden catheter in place. No evidence of open sores on skin. No history of myocardial infarction or cardiac stents. Objective - Vital Signs Vital signs: Vital Signs Temp 98.1 F 10/06/17 06:04 Pulse 88 10/06/17 11:11 Resp 16 10/06/17 06:04 BP 138/72 10/06/17 06:04 Pulse Ox 96 10/06/17 07:16 Intake & Output 10/05/17 10/06/17 10/06/17 18:59 06:59 18:59 Intake Total 440 320 Output Total 1400 1725 Balance -960 -1725 320 Weight 116.2 kg Intake: Oral 440 320 Output: Urine 1400 1725 Other: Voiding Method Indwelling Catheter Indwelling Catheter Indwelling Catheter # Bowel Movements 0 - Exam Head normocephalic Neck supple Lungs clear to auscultation bilaterally no wheezing or crackles Heart regular rate and rhythm S1-S2, no rub or gallop Abdomen is soft nontender nondistended positive bowel sounds no hepatosplenomegaly Extremities no edema Neuro alert and orientated to 3 - Labs CBC & Chem 7: 10/06/17 07:37 10/06/17 07:37 Labs: Abnormal Lab Results - Last 24 Hours (Table) 10/03/17 10/05/17 10/05/17 Range/Units 22:25 17:07 21:01 RBC (4.30-5.90) m/uL Hgb (13.0-17.5) gm/dL BUN (9-20) mg/dL Glucose (74-99) mg/dL POC Glucose (mg/dL) 126 H 138 H (75-99) mg/dL Hemoglobin A1c 9.9 H (4.0-6.0) % Alkaline Phosphatase (38-126) U/L Total Protein (6.3-8.2) g/dL Albumin (3.5-5.0) g/dL 10/06/17 10/06/17 10/06/17 Range/Units 07:11 07:37 07:37 RBC 4.22 L (4.30-5.90) m/uL Hgb 12.7 L (13.0-17.5) gm/dL BUN 23 H (9-20) mg/dL Glucose 118 H (74-99) mg/dL POC Glucose (mg/dL) 119 H (75-99) mg/dL Hemoglobin A1c (4.0-6.0) % Alkaline Phosphatase 138 H (38-126) U/L Total Protein 5.8 L (6.3-8.2) g/dL Albumin 3.4 L (3.5-5.0) g/dL Microbiology - Last 24 Hours (Table) 10/04/17 13:50 Urine Culture - Preliminary Urine,Catheterized Gram Neg Bacilli Assessment and Plan Assessment: #1 urinary tract infection with sepsis likely related to indwelling Bowden catheter: Urine culture growing gram-negative bacilli. Continue IV Rocephin. #2 sepsis with hypotension. Blood pressures are showing improvement. #3 dehydration with acute renal failure due to prerenal azotemia and likely secondary to obstructive uropathy. Nephrology is following. AJAY inhibitor and Lasix are currently on hold. #4 recent hernia surgery in August 2017 #5 underlying history of insulin-dependent diabetes mellitus #6 Underlying history of diastolic congestive heart failure #7 Known history of benign prostatic hypertrophy maintained on Flomax at home. #8 obstructive uropathy with indwelling Bowden catheter: Seen by urology scheduled for TURP procedure tomorrow DVT prophylaxis subcu heparin I performed an examination of the patient and discussed their management with the physician Bank Clerk. I have reviewed the Physician Bank Clerk's notes and agree with the documented findings and plan of care
[2017-10-06 13:04] LABS: Glucose,Whole Blood 159 mg/dL (75-99)
[2017-10-06] MEDS: SODIUM CHLORIDE 0.9% 1,000 ML IV SCH (14:19)
[2017-10-06 17:25] LABS: Glucose,Whole Blood 154 mg/dL (75-99)
[2017-10-06 20:42] LABS: Glucose,Whole Blood 145 mg/dL (75-99)
[2017-10-06] MEDS: INSULIN DETEMIR 100 UNIT/ML 10 ML VIAL SQ SCH (20:47)
--- NOTE | 2017-10-06 22:36 | PN ---
PROGRESS NOTE Patient is seen for followup for acute kidney injury which was mainly prerenal. Patient is maintained on IV fluids. His serum creatinine is down to 0.9 mg/dL from 2.4 on initial admission. The patient is scheduled for TURP tomorrow morning. EXAMINATION: Blood pressure is a 128/79, heart rate 104 per minute. Patient is afebrile. HEART: S1, S2. LUNGS: Bilateral breath sounds are heard. Abdomen is soft, nontender. Lower extremities show trace edema bilaterally. PROGRAM FACILITATOR is grossly intact. LABS: Show sodium 143, potassium 4.6, chloride 106, BUN 23, serum creatinine 0.9. Hemoglobin 12.7 g/dL. ASSESSMENT: 1. Acute kidney injury, prerenal, currently resolved. 2. Benign prostatic hypertrophy, scheduled for a transurethral resection of the prostate procedure tomorrow, currently with indwelling Bowden catheter. 3. Type 2 diabetes, maintained on insulin. 4. Enterobacter cloacae urinary tract infection maintained on Rocephin. PLAN: Hep-Lock IV fluids. He can likely resume Lasix from tomorrow, depending on the volume status. MMODL / IJN: [id number] /
[2017-10-07] MEDS: SYMBICORT 160-4.5 MCG INHALER INHALATION SCH ×2 (06:54→20:05)
[2017-10-07] MEDS: IPRATROPIUM 0.5 MG/2.5 ML NEBU INHALATION SCH ×4 (06:54→20:05)
[2017-10-07 07:23] LABS: Glucose,Whole Blood 110 mg/dL (75-99)
[2017-10-07] MEDS: INSULIN ASPART 100 UNIT/ML 1 ML 10 ML VIAL SQ SCH ×3 (08:19→17:38)
[2017-10-07] MEDS: cefTRIAXone IN SWFI 1,000 MG/10 ML SYRINGE IVP SCH (08:19)
[2017-10-07] MEDS: DOCUSATE 100 MG CAP PO SCH ×2 (08:20→21:08)
[2017-10-07] MEDS: HEPARIN SODIUM,PORCINE 5,000 UNIT/ML 1 ML VIAL SQ SCH (08:20)
[2017-10-07] MEDS ORDERED: IV FLUID CONTINUATION 1,000 ML IV ONE (10:02)
[2017-10-07 10:07] LABS: Basophils % (A) 0 %; Eosinophils # (A) 0.2 k/uL (0-0.7); Eosinophils % (A) 3 %; HCT 37.9 % (39.0-53.0); HGB 12.6 gm/dL (13.0-17.5); Lymphocytes # (A) 1.6 k/uL (1.0-4.8); Lymphocytes % (A) 25 %; MCH 30.4 pg (25.0-35.0); MCHC 33.2 g/dL (31.0-37.0); MCV 91.7 fL (80.0-100.0); Mean Platelet Volume 6.7; Monocytes # (A) 0.5 k/uL (0-1.0); Monocytes % (A) 8 %; Neutrophils % (A) 62 %; Platelet Count 220 k/uL (150-450); RBC 4.13 m/uL (4.30-5.90); RDW 13.7 % (11.5-15.5); WBC 6.4 k/uL (3.8-10.6)
[2017-10-07 10:25] LABS: ALT 38 U/L (21-72); AST 27 U/L (17-59); Albumin 3.4 g/dL (3.5-5.0); Alkaline Phosphatase 140 U/L (38-126); Anion Gap 10 mmol/L; Blood Urea Nitrogen 19 mg/dL (9-20); Calcium 9.7 mg/dL (8.4-10.2); Carbon Dioxide 28 mmol/L (22-30); Chloride 106 mmol/L (98-107); Glucose 101 mg/dL (74-99); Potassium 4.4 mmol/L (3.5-5.1); Sodium 144 mmol/L (137-145); Total Bilirubin 0.4 mg/dL (0.2-1.3); Total Protein 5.9 g/dL (6.3-8.2)
[2017-10-07 10:30] LABS: Glucose,Whole Blood 110 mg/dL (75-99)
[2017-10-07] MEDS ORDERED: MIDAZOLAM 2 MG/2 ML VIAL ONE (10:34)
[2017-10-07] MEDS ORDERED: fentaNYL (PF) 50 MCG/ML 2 ML AMP ONE (10:34)
[2017-10-07] MEDS ORDERED: LACTATED RINGERS 1,000 ML IV ONE (11:04)
--- NOTE | 2017-10-07 12:35 | P.OP ---
Date of Procedure: 10/07/17 Preoperative Diagnosis: Urine retention secondary to BPH Postoperative Diagnosis: Same Procedure(s) Performed: Bipolar TURP Anesthesia: spinal Surgeon: Jorge Meza Estimated Blood Loss (ml): 100 Pathology: other (Prostate) Condition: stable Disposition: PACU Indications for Procedure: The patient is a 66-year-old gentleman in urine retention after hernia repair. He had obstructive symptoms preoperatively. He has been unable to urinate despite maximum medication. He comes for a TURP Description of Procedure: Patient is brought to the operating suite. He is given a spinal anesthetic followed by IV sedation. He's placed lithotomy position with sterile prep and drape. He has been on culture specific preoperative antibiotics. A Bowden catheters removed. A sterile prep and drape was administered. 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 I began the resection at 12:00 and the left lateral lobe margin down to 6:00. I first to the proximal prostate I then do the distal prostate up to the verumontanum. I do the same on the right side. There is a large amount redundant floor tissue that have to remove it. I evacuate the bladder with from prosthetic chips with the onlinetours evacuator. I reinspected the prostate control bleeding and remove any remaining chips. A 20- Maori latex free catheter of 10 mL balloon is introduced the bladder over man during guide with light pink urine return. The patient's awake and returned recovery room good condition. Blood loss is approximately 100 mL. The patient we placed in the hospital postoperatively.
[2017-10-07 12:50] LABS: Glucose,Whole Blood 120 mg/dL (75-99)
[2017-10-07] MEDS: MULTIVITAMINS, THERA 1 EACH TAB PO SCH (14:35)
[2017-10-07] MEDS: SODIUM CHLORIDE 0.45% 1,000 ML IV SCH (14:36)
[2017-10-07] MEDS: HYDROcodone/APAP 10-325MG 1 EACH TAB PO PRN (15:04)
[2017-10-07 17:03] LABS: Glucose,Whole Blood 271 mg/dL (75-99)
[2017-10-07 17:03] LABS: Glucose,Whole Blood 397 mg/dL (75-99)
--- NOTE | 2017-10-07 18:26 | P.PN ---
Subjective Progress Note Date: 10/07/17 Gene Zuleta is a 66-year-old male who presented to [facility] emergency room due to poor urine output and dark urine was blood clots in his Bowden catheter back. Patient states that on August 19 he had a hernia surgery, since then he has not been able to urinate, he has required Bowden catheter placement, catheter has been replaced repeatedly, he has seen Dr. Morrow and is scheduled for Possible urethral surgery. Patient stated that he was traveling for his grandson wedding, he noticed that he was tired and had low urine output in his Bowden catheter bag with dark urine , he called his nurse and had the catheter replaced without significant improvement he decided to come to emergency room. In the emergency room patient was evaluated by Dr. Ribeiro, he had evidence of urinary tract infection, evidence of hypotension, and evidence of acute renal failure his BUN was 64 and creatinine 2.4, his BUN and creatinine were normal on August 19, 2017 he was started on IV fluid IV antibiotics and was admitted to telemetry floor. 10/05/2017 patient reports feeling better. Is currently on IV Rocephin for the UTI. Nephrology is following. Awaiting urology consult. Patient denies any chest pain or shortness breath. Denies any nausea or vomiting. Denies any bowel movement changes. Bowden catheter in place. 10/06/2017 patient sitting up in bed. Has no new complaints. He is scheduled for the TURP procedure tomorrow. Kidney functions have improved creatinine is 0.92. His lisinopril Lasix remain on hold. Urine culture growing gram- negative bacilli. Patient denies any chest pain or shortness of breath. Denies any nausea or vomiting. Reports regular bowel movements. Has Bowden catheter in place. No evidence of open sores on skin. No history of myocardial infarction or cardiac stents. 10/07/2017 patient sitting up in bed. Has no new complaints. He is scheduled for the TURP procedure today. No chest pain no shortness of breath no cough no palpitation no nausea or vomiting no abdominal pain no diarrhea or constipation, patient has Bowden catheter Objective - Vital Signs Vital signs: Vital Signs Temp 98.8 F 10/07/17 13:30 Pulse 87 10/07/17 16:18 Resp 18 10/07/17 14:30 BP 149/84 10/07/17 14:30 Pulse Ox 94 L 10/07/17 14:30 Intake & Output 10/06/17 10/07/17 10/07/17 18:59 06:59 18:59 Intake Total 520 600 Output Total 1200 1700 625 Balance -680 -1700 -25 Weight 116.2 kg Intake: IV 600 Oral 520 Output: Urine 1200 1700 425 Estimated Blood Loss 200 Other: Voiding Method Indwelling Catheter Indwelling Catheter Indwelling Catheter # Voids 1 - Exam Head normocephalic and atraumatic Neck supple no JVD Lungs clear to auscultation bilaterally no wheezing or crackles Heart regular rate and rhythm S1-S2, no rub or gallop Abdomen is soft nontender nondistended positive bowel sounds no hepatosplenomegaly Extremities no edema no cyanosis or clubbing Neuro alert and orientated to 3 - Labs CBC & Chem 7: 10/07/17 08:27 10/07/17 08:27 Labs: Abnormal Lab Results - Last 24 Hours (Table) 10/06/17 10/07/17 10/07/17 Range/Units 20:39 07:18 08:27 RBC 4.13 L (4.30-5.90) m/uL Hgb 12.6 L (13.0-17.5) gm/dL Hct 37.9 L (39.0-53.0) % Glucose (74-99) mg/dL POC Glucose (mg/dL) 145 H 110 H (75-99) mg/dL Alkaline Phosphatase (38-126) U/L Total Protein (6.3-8.2) g/dL Albumin (3.5-5.0) g/dL 10/07/17 10/07/17 10/07/17 Range/Units 08:27 10:13 12:49 RBC (4.30-5.90) m/uL Hgb (13.0-17.5) gm/dL Hct (39.0-53.0) % Glucose 101 H (74-99) mg/dL POC Glucose (mg/dL) 110 H 120 H (75-99) mg/dL Alkaline Phosphatase 140 H (38-126) U/L Total Protein 5.9 L (6.3-8.2) g/dL Albumin 3.4 L (3.5-5.0) g/dL 10/07/17 10/07/17 Range/Units 16:58 17:00 RBC (4.30-5.90) m/uL Hgb (13.0-17.5) gm/dL Hct (39.0-53.0) % Glucose (74-99) mg/dL POC Glucose (mg/dL) 397 H 271 H (75-99) mg/dL Alkaline Phosphatase (38-126) U/L Total Protein (6.3-8.2) g/dL Albumin (3.5-5.0) g/dL Microbiology - Last 24 Hours (Table) 10/04/17 13:50 Urine Culture - Final Urine,Catheterized Enterobacter cloacae Assessment and Plan Plan: #1 urinary tract infection with sepsis likely related to indwelling Bowden catheter: Urine culture growing gram-negative bacilli. Continue IV Rocephin. #2 sepsis with hypotension. Blood pressures are showing improvement. #3 dehydration with acute renal failure due to prerenal azotemia and likely secondary to obstructive uropathy. Nephrology is following. AJAY inhibitor and Lasix are currently on hold. #4 recent hernia surgery in August 2017 #5 underlying history of insulin-dependent diabetes mellitus #6 Underlying history of diastolic congestive heart failure #7 Known history of benign prostatic hypertrophy maintained on Flomax at home. #8 obstructive uropathy with indwelling Bowden catheter: Seen by urology scheduled for TURP procedure today
[2017-10-07 20:54] LABS: Glucose,Whole Blood 184 mg/dL (75-99)
[2017-10-07] MEDS: INSULIN DETEMIR 100 UNIT/ML 10 ML VIAL SQ SCH (21:08)
[2017-10-08] MEDS: SODIUM CHLORIDE 0.45% 1,000 ML IV SCH ×2 (04:15→12:35)
[2017-10-08] MEDS: HYDROcodone/APAP 10-325MG 1 EACH TAB PO PRN (05:00)
--- NOTE | 2017-10-08 06:43 | P.PN ---
Subjective Progress Note Date: 10/08/17 The patient is in his first postoperative day from a TURP. Vital signs are stable. He feels well. The urine is very light pink. He will continue with the IV and ambulate for 24 hours longer. The catheter will be removed tomorrow. If he voids well he can be discharged home later in the day from a urologic standpoint Objective - Vital Signs Vital signs: Vital Signs Temp 97.3 F L 10/08/17 05:55 Pulse 87 10/08/17 05:55 Resp 16 10/08/17 05:55 BP 133/62 10/08/17 05:55 Pulse Ox 94 L 10/08/17 05:55 Intake & Output 10/07/17 10/07/17 10/08/17 06:59 18:59 06:59 Intake Total 600 Output Total 2930 739 4263 Balance -1700 -25 -1650 Intake: IV 600 Output: Urine 7813 863 9655 Estimated Blood Loss 200 Other: Voiding Method Indwelling Catheter Indwelling Catheter Indwelling Catheter # Voids 1 1 - Labs CBC & Chem 7: 10/07/17 08:27 10/07/17 08:27 Labs: Abnormal Lab Results - Last 24 Hours (Table) 10/07/17 10/07/17 10/07/17 Range/Units 07:18 08:27 08:27 RBC 4.13 L (4.30-5.90) m/uL Hgb 12.6 L (13.0-17.5) gm/dL Hct 37.9 L (39.0-53.0) % Glucose 101 H (74-99) mg/dL POC Glucose (mg/dL) 110 H (75-99) mg/dL Alkaline Phosphatase 140 H (38-126) U/L Total Protein 5.9 L (6.3-8.2) g/dL Albumin 3.4 L (3.5-5.0) g/dL 10/07/17 10/07/17 10/07/17 Range/Units 10:13 12:49 16:58 RBC (4.30-5.90) m/uL Hgb (13.0-17.5) gm/dL Hct (39.0-53.0) % Glucose (74-99) mg/dL POC Glucose (mg/dL) 110 H 120 H 397 H (75-99) mg/dL Alkaline Phosphatase (38-126) U/L Total Protein (6.3-8.2) g/dL Albumin (3.5-5.0) g/dL 10/07/17 10/07/17 Range/Units 17:00 20:52 RBC (4.30-5.90) m/uL Hgb (13.0-17.5) gm/dL Hct (39.0-53.0) % Glucose (74-99) mg/dL POC Glucose (mg/dL) 271 H 184 H (75-99) mg/dL Alkaline Phosphatase (38-126) U/L Total Protein (6.3-8.2) g/dL Albumin (3.5-5.0) g/dL
[2017-10-08] MEDS: SYMBICORT 160-4.5 MCG INHALER INHALATION SCH ×2 (07:08→19:40)
[2017-10-08] MEDS: IPRATROPIUM 0.5 MG/2.5 ML NEBU INHALATION SCH ×4 (07:08→19:40)
[2017-10-08 07:10] LABS: Glucose,Whole Blood 72 mg/dL (75-99)
[2017-10-08] MEDS: INSULIN ASPART 100 UNIT/ML 1 ML 10 ML VIAL SQ SCH ×3 (07:43→17:57)
[2017-10-08] MEDS: DOCUSATE 100 MG CAP PO SCH ×2 (08:03→21:08)
[2017-10-08] MEDS: cefTRIAXone IN SWFI 1,000 MG/10 ML SYRINGE IVP SCH (08:03)
[2017-10-08 08:37] LABS: Basophils % (A) 0 %; Eosinophils # (A) 0.2 k/uL (0-0.7); Eosinophils % (A) 3 %; HCT 37.5 % (39.0-53.0); HGB 12.3 gm/dL (13.0-17.5); Lymphocytes # (A) 1.9 k/uL (1.0-4.8); Lymphocytes % (A) 26 %; MCH 30.1 pg (25.0-35.0); MCHC 32.9 g/dL (31.0-37.0); MCV 91.5 fL (80.0-100.0); Mean Platelet Volume 6.5; Monocytes # (A) 0.5 k/uL (0-1.0); Monocytes % (A) 7 %; Neutrophils # (A) 4.5 k/uL (1.3-7.7); Neutrophils % (A) 62 %; Platelet Count 233 k/uL (150-450); RDW 14.1 % (11.5-15.5); WBC 7.3 k/uL (3.8-10.6)
[2017-10-08 08:57] LABS: ALT 36 U/L (21-72); AST 24 U/L (17-59); Albumin 3.2 g/dL (3.5-5.0); Alkaline Phosphatase 131 U/L (38-126); Anion Gap 9 mmol/L; Blood Urea Nitrogen 16 mg/dL (9-20); Calcium 9.5 mg/dL (8.4-10.2); Carbon Dioxide 28 mmol/L (22-30); Chloride 104 mmol/L (98-107); Glucose 58 mg/dL (74-99); Sodium 141 mmol/L (137-145); Total Bilirubin 0.4 mg/dL (0.2-1.3); Total Protein 5.6 g/dL (6.3-8.2)
[2017-10-08 12:01] LABS: Glucose,Whole Blood 123 mg/dL (75-99)
--- NOTE | 2017-10-08 12:13 | P.PN ---
Subjective Patient is seen in follow-up for acute kidney injury which has resolved. Creatinine is down to 0.75 today. Patient underwent TURP on 10/07/2017. He has Bowden catheter in place with good urine output. He has been ambulating. Denies chest pain or shortness of breath. Oral intake is good. Vital signs are stable. General: The patient appeared well nourished and normally developed. HEENT: Head exam is unremarkable. Neck is without jugular venous distension. LUNGS: Lungs are clear to auscultation and percussion. Breath sounds decreased. HEART: Rate and Rhythm are regular. First and second heart sounds normal. No murmurs, rubs or gallops. ABDOMEN: Abdominal exam reveals normal bowel sounds. Non-tender and non- distended. No evidence of peritonitis. EXTREMITITES: No clubbing, cyanosis, or edema. Objective - Vital Signs Vital signs: Vital Signs Temp 97.3 F L 10/08/17 05:55 Pulse 80 10/08/17 11:36 Resp 16 10/08/17 08:03 BP 133/62 10/08/17 05:55 Pulse Ox 94 L 10/08/17 05:55 Intake & Output 10/07/17 10/08/17 10/08/17 18:59 06:59 18:59 Intake Total 600 240 Output Total 625 1650 Balance -25 -1650 240 Intake: IV 600 Oral 240 Output: Urine 425 1650 Estimated Blood Loss 200 Other: Voiding Method Indwelling Catheter Indwelling Catheter Indwelling Catheter # Voids 1 - Labs CBC & Chem 7: 10/08/17 07:50 10/08/17 07:50 Labs: Abnormal Lab Results - Last 24 Hours (Table) 10/07/17 10/07/17 10/07/17 Range/Units 12:49 16:58 17:00 RBC (4.30-5.90) m/uL Hgb (13.0-17.5) gm/dL Hct (39.0-53.0) % Glucose (74-99) mg/dL POC Glucose (mg/dL) 120 H 397 H 271 H (75-99) mg/dL Alkaline Phosphatase (38-126) U/L Total Protein (6.3-8.2) g/dL Albumin (3.5-5.0) g/dL 10/07/17 10/08/1718 Range/Units 20:52 07:05 07:50 RBC 4.10 L (4.30-5.90) m/uL Hgb 12.3 L (13.0-17.5) gm/dL Hct 37.5 L (39.0-53.0) % Glucose (74-99) mg/dL POC Glucose (mg/dL) 184 H 72 L (75-99) mg/dL Alkaline Phosphatase (38-126) U/L Total Protein (6.3-8.2) g/dL Albumin (3.5-5.0) g/dL 10/08/17 10/08/17 Range/Units 07:50 11:46 RBC (4.30-5.90) m/uL Hgb (13.0-17.5) gm/dL Hct (39.0-53.0) % Glucose 58 L (74-99) mg/dL POC Glucose (mg/dL) 123 H (75-99) mg/dL Alkaline Phosphatase 131 H (38-126) U/L Total Protein 5.6 L (6.3-8.2) g/dL Albumin 3.2 L (3.5-5.0) g/dL Assessment and Plan Plan: Assessment: 1. Nonoliguric acute kidney injury mostly prerenal resolved with IV hydration. Creatinine down to 0.75 today. 2. Urinary retention/BPH status post TURP on 10/07/2017. 3. UTI with urine culture positive for Enterobacter. 4. Insulin-dependent diabetes mellitus. Plan: Hep-Lock IV fluids. Encourage oral intake. Repeat electrolytes in the morning. Potential catheter removal tomorrow. Urology following.
[2017-10-08] MEDS: MULTIVITAMINS, THERA 1 EACH TAB PO SCH (13:02)
[2017-10-08] MEDS: LISINOPRIL 10 MG TAB PO SCH (13:02)
--- NOTE | 2017-10-08 16:58 | P.PN ---
Subjective Progress Note Date: 10/08/17 Gene Zuleta is a 66-year-old male who presented to [facility] emergency room due to poor urine output and dark urine was blood clots in his Bowden catheter back. Patient states that on August 19 he had a hernia surgery, since then he has not been able to urinate, he has required Bowden catheter placement, catheter has been replaced repeatedly, he has seen Dr. Morrow and is scheduled for Possible urethral surgery. Patient stated that he was traveling for his grandson wedding, he noticed that he was tired and had low urine output in his Bowden catheter bag with dark urine , he called his nurse and had the catheter replaced without significant improvement he decided to come to emergency room. In the emergency room patient was evaluated by Dr. Ribeiro, he had evidence of urinary tract infection, evidence of hypotension, and evidence of acute renal failure his BUN was 64 and creatinine 2.4, his BUN and creatinine were normal on August 19, 2017 he was started on IV fluid IV antibiotics and was admitted to telemetry floor. 10/05/2017 patient reports feeling better. Is currently on IV Rocephin for the UTI. Nephrology is following. Awaiting urology consult. Patient denies any chest pain or shortness breath. Denies any nausea or vomiting. Denies any bowel movement changes. Bowden catheter in place. 10/06/2017 patient sitting up in bed. Has no new complaints. He is scheduled for the TURP procedure tomorrow. Kidney functions have improved creatinine is 0.92. His lisinopril Lasix remain on hold. Urine culture growing gram- negative bacilli. Patient denies any chest pain or shortness of breath. Denies any nausea or vomiting. Reports regular bowel movements. Has Bowden catheter in place. No evidence of open sores on skin. No history of myocardial infarction or cardiac stents. 10/07/2017 patient sitting up in bed. Has no new complaints. He is scheduled for the TURP procedure today. No chest pain no shortness of breath no cough no palpitation no nausea or vomiting no abdominal pain no diarrhea or constipation, patient has Bowden catheter On 10/08/2017 patient is alert and oriented 3 in no apparent distress, he has Bowden catheter and, back is full of bloody urine, patient is denying any symptoms, there is no fever or chills no headache no dizziness no chest pain no shortness of breath no cough no palpitation no nausea or vomiting no abdominal pain and no diarrhea Objective - Vital Signs Vital signs: Vital Signs Temp 98.9 F 10/08/17 14:45 Pulse 72 10/08/17 15:46 Resp 18 10/08/17 14:45 BP 115/63 10/08/17 14:45 Pulse Ox 92 L 10/08/17 14:45 Intake & Output 10/07/17 10/08/17 10/08/17 18:59 06:59 18:59 Intake Total 600 480 Output Total 625 1650 900 Balance -25 -1650 -420 Intake: IV 600 Oral 480 Output: Urine 425 1650 900 Estimated Blood Loss 200 Other: Voiding Method Indwelling Catheter Indwelling Catheter Indwelling Catheter # Voids 1 # Bowel Movements 0 - Exam Head normocephalic and atraumatic Neck supple no JVD Lungs clear to auscultation bilaterally no wheezing or crackles Heart regular rate and rhythm S1-S2, no rub or gallop Abdomen is soft nontender nondistended positive bowel sounds no hepatosplenomegaly Extremities no edema no cyanosis or clubbing Neuro alert and orientated to 3 - Labs CBC & Chem 7: 10/08/17 07:50 10/08/17 07:50 Labs: Abnormal Lab Results - Last 24 Hours (Table) 10/07/17 10/07/17 10/07/17 Range/Units 16:58 17:00 20:52 RBC (4.30-5.90) m/uL Hgb (13.0-17.5) gm/dL Hct (39.0-53.0) % Glucose (74-99) mg/dL POC Glucose (mg/dL) 397 H 271 H 184 H (75-99) mg/dL Alkaline Phosphatase (38-126) U/L Total Protein (6.3-8.2) g/dL Albumin (3.5-5.0) g/dL 10/08/17 10/08/17 10/08/17 Range/Units 07:05 07:50 07:50 RBC 4.10 L (4.30-5.90) m/uL Hgb 12.3 L (13.0-17.5) gm/dL Hct 37.5 L (39.0-53.0) % Glucose 58 L (74-99) mg/dL POC Glucose (mg/dL) 72 L (75-99) mg/dL Alkaline Phosphatase 131 H (38-126) U/L Total Protein 5.6 L (6.3-8.2) g/dL Albumin 3.2 L (3.5-5.0) g/dL 10/08/17 Range/Units 11:46 RBC (4.30-5.90) m/uL Hgb (13.0-17.5) gm/dL Hct (39.0-53.0) % Glucose (74-99) mg/dL POC Glucose (mg/dL) 123 H (75-99) mg/dL Alkaline Phosphatase (38-126) U/L Total Protein (6.3-8.2) g/dL Albumin (3.5-5.0) g/dL Assessment and Plan Plan: #1 urinary tract infection with sepsis likely related to indwelling Bowden catheter: Urine culture growing gram-negative bacilli. Continue IV Rocephin. #2 sepsis with hypotension. Blood pressures are showing improvement. #3 dehydration with acute renal failure due to prerenal azotemia and likely secondary to obstructive uropathy. Nephrology is following. AJAY inhibitor and Lasix are currently on hold. #4 recent hernia surgery in August 2017 #5 underlying history of insulin-dependent diabetes mellitus #6 Underlying history of diastolic congestive heart failure #7 Known history of benign prostatic hypertrophy maintained on Flomax at home. #8 obstructive uropathy with indwelling Bowden catheter: Seen by urology had TURP procedure yesterday. Still has Bowden catheter in, will recheck in a.m..
[2017-10-08 17:47] LABS: Glucose,Whole Blood 143 mg/dL (75-99)
[2017-10-08] MEDS: INSULIN DETEMIR 100 UNIT/ML 10 ML VIAL SQ SCH (21:08)
[2017-10-08 21:17] LABS: Glucose,Whole Blood 202 mg/dL (75-99)
[2017-10-08 23:08] VITALS: RESP 16
[2017-10-09 07:12] LABS: Glucose,Whole Blood 94 mg/dL (75-99)
[2017-10-09] MEDS: INSULIN ASPART 100 UNIT/ML 1 ML 10 ML VIAL SQ SCH ×2 (07:50→13:08)
[2017-10-09 07:51] LABS: Basophils % (A) 0 %; Eosinophils # (A) 0.2 k/uL (0-0.7); Eosinophils % (A) 3 %; HCT 35.7 % (39.0-53.0); HGB 11.7 gm/dL (13.0-17.5); Lymphocytes # (A) 1.8 k/uL (1.0-4.8); Lymphocytes % (A) 28 %; MCH 30.1 pg (25.0-35.0); MCHC 32.8 g/dL (31.0-37.0); MCV 91.9 fL (80.0-100.0); Mean Platelet Volume 6.7; Monocytes # (A) 0.5 k/uL (0-1.0); Monocytes % (A) 7 %; Neutrophils # (A) 3.8 k/uL (1.3-7.7); Neutrophils % (A) 58 %; Platelet Count 229 k/uL (150-450); RBC 3.89 m/uL (4.30-5.90); WBC 6.6 k/uL (3.8-10.6)
[2017-10-09 08:17] LABS: ALT 34 U/L (21-72); AST 22 U/L (17-59); Albumin 3.3 g/dL (3.5-5.0); Alkaline Phosphatase 128 U/L (38-126); Anion Gap 11 mmol/L; Blood Urea Nitrogen 15 mg/dL (9-20); Calcium 9.5 mg/dL (8.4-10.2); Carbon Dioxide 24 mmol/L (22-30); Chloride 105 mmol/L (98-107); Glucose 88 mg/dL (74-99); Magnesium 1.6 mg/dL (1.6-2.3); Potassium 4.3 mmol/L (3.5-5.1); Sodium 140 mmol/L (137-145); Total Bilirubin 0.4 mg/dL (0.2-1.3); Total Protein 5.7 g/dL (6.3-8.2)
[2017-10-09] MEDS: IPRATROPIUM 0.5 MG/2.5 ML NEBU INHALATION SCH ×3 (08:33→15:57)
[2017-10-09] MEDS: SYMBICORT 160-4.5 MCG INHALER INHALATION SCH (08:33)
[2017-10-09] MEDS: cefTRIAXone IN SWFI 1,000 MG/10 ML SYRINGE IVP SCH (08:58)
[2017-10-09] MEDS: MULTIVITAMINS, THERA 1 EACH TAB PO SCH (08:58)
[2017-10-09] MEDS: LISINOPRIL 10 MG TAB PO SCH (08:58)
[2017-10-09] MEDS: DOCUSATE 100 MG CAP PO SCH (08:58)
--- NOTE | 2017-10-09 11:15 | P.PN ---
Subjective Progress Note Date: 10/09/17 The patient underwent TURP 10/07/2017. Urine was clear and the catheter was removed today. He has not voided yet. If he voids with then he can go home later from a urologic standpoint. His activity is limited. He should be seen in my office in 7-10 days. Objective - Vital Signs Vital signs: Vital Signs Temp 98.0 F 10/09/17 06:20 Pulse 94 10/09/17 08:45 Resp 16 10/09/17 06:20 BP 136/81 10/09/17 06:20 Pulse Ox 93 L 10/09/17 08:36 Intake & Output 10/08/17 10/09/17 10/09/17 18:59 06:59 18:59 Intake Total 480 100 Output Total 900 2100 Balance -420 -2000 Intake: Oral 480 100 Output: Urine 900 2100 Other: Voiding Method Indwelling Catheter Indwelling Catheter # Voids 2 # Bowel Movements 0 - Labs CBC & Chem 7: 10/09/17 07:12 10/09/17 07:12 Labs: Abnormal Lab Results - Last 24 Hours (Table) 10/08/17 10/08/17 10/08/17 Range/Units 11:46 17:34 21:03 RBC (4.30-5.90) m/uL Hgb (13.0-17.5) gm/dL Hct (39.0-53.0) % POC Glucose (mg/dL) 123 H 143 H 202 H (75-99) mg/dL Alkaline Phosphatase (38-126) U/L Total Protein (6.3-8.2) g/dL Albumin (3.5-5.0) g/dL 10/09/17 10/09/17 Range/Units 07:12 07:12 RBC 3.89 L (4.30-5.90) m/uL Hgb 11.7 L (13.0-17.5) gm/dL Hct 35.7 L (39.0-53.0) % POC Glucose (mg/dL) (75-99) mg/dL Alkaline Phosphatase 128 H (38-126) U/L Total Protein 5.7 L (6.3-8.2) g/dL Albumin 3.3 L (3.5-5.0) g/dL
--- NOTE | 2017-10-09 12:25 | P.PN ---
Subjective Progress Note Date: 10/09/17 Gene Zuleta is a 66-year-old male who presented to [facility] emergency room due to poor urine output and dark urine was blood clots in his Bowden catheter back. Patient states that on August 19 he had a hernia surgery, since then he has not been able to urinate, he has required Bowden catheter placement, catheter has been replaced repeatedly, he has seen Dr. Morrow and is scheduled for Possible urethral surgery. Patient stated that he was traveling for his grandson wedding, he noticed that he was tired and had low urine output in his Bowden catheter bag with dark urine , he called his nurse and had the catheter replaced without significant improvement he decided to come to emergency room. In the emergency room patient was evaluated by Dr. Ribeiro, he had evidence of urinary tract infection, evidence of hypotension, and evidence of acute renal failure his BUN was 64 and creatinine 2.4, his BUN and creatinine were normal on August 19, 2017 he was started on IV fluid IV antibiotics and was admitted to telemetry floor. 10/05/2017 patient reports feeling better. Is currently on IV Rocephin for the UTI. Nephrology is following. Awaiting urology consult. Patient denies any chest pain or shortness breath. Denies any nausea or vomiting. Denies any bowel movement changes. Bowden catheter in place. 10/06/2017 patient sitting up in bed. Has no new complaints. He is scheduled for the TURP procedure tomorrow. Kidney functions have improved creatinine is 0.92. His lisinopril Lasix remain on hold. Urine culture growing gram- negative bacilli. Patient denies any chest pain or shortness of breath. Denies any nausea or vomiting. Reports regular bowel movements. Has Bowden catheter in place. No evidence of open sores on skin. No history of myocardial infarction or cardiac stents. 10/07/2017 patient sitting up in bed. Has no new complaints. He is scheduled for the TURP procedure today. No chest pain no shortness of breath no cough no palpitation no nausea or vomiting no abdominal pain no diarrhea or constipation, patient has Bowden catheter On 10/08/2017 patient is alert and oriented 3 in no apparent distress, he has Bowden catheter and, back is full of bloody urine, patient is denying any symptoms, there is no fever or chills no headache no dizziness no chest pain no shortness of breath no cough no palpitation no nausea or vomiting no abdominal pain and no diarrhea On 10/09/2017 patient is alert and oriented 3, Bowden catheter has been removed this morning, and so far he has not been able to urinate, otherwise he denies any complaints, there is no fever or chills no headache or dizziness no chest pain no shortness of breath no cough no nausea or vomiting no abdominal pain and no diarrhea. Objective - Vital Signs Vital signs: Vital Signs Temp 98.0 F 10/09/17 06:20 Pulse 96 10/09/17 11:51 Resp 16 10/09/17 08:55 BP 136/81 10/09/17 06:20 Pulse Ox 93 L 10/09/17 08:36 Intake & Output 10/08/17 10/09/17 10/09/17 18:59 06:59 18:59 Intake Total 480 100 Output Total 900 2100 Balance -420 -2000 Intake: Oral 480 100 Output: Urine 900 2100 Other: Voiding Method Indwelling Catheter Indwelling Catheter # Voids 2 # Bowel Movements 0 - Exam Head normocephalic and atraumatic Neck supple no JVD Lungs clear to auscultation bilaterally no wheezing or crackles Heart regular rate and rhythm S1-S2, no rub or gallop Abdomen is soft nontender nondistended positive bowel sounds no hepatosplenomegaly Extremities no edema no cyanosis or clubbing Neuro alert and orientated to 3 - Labs CBC & Chem 7: 10/09/17 07:12 10/09/17 07:12 Labs: Abnormal Lab Results - Last 24 Hours (Table) 10/08/17 10/08/17 10/09/17 Range/Units 17:34 21:03 07:12 RBC 3.89 L (4.30-5.90) m/uL Hgb 11.7 L (13.0-17.5) gm/dL Hct 35.7 L (39.0-53.0) % POC Glucose (mg/dL) 143 H 202 H (75-99) mg/dL Alkaline Phosphatase (38-126) U/L Total Protein (6.3-8.2) g/dL Albumin (3.5-5.0) g/dL 10/09/17 Range/Units 07:12 RBC (4.30-5.90) m/uL Hgb (13.0-17.5) gm/dL Hct (39.0-53.0) % POC Glucose (mg/dL) (75-99) mg/dL Alkaline Phosphatase 128 H (38-126) U/L Total Protein 5.7 L (6.3-8.2) g/dL Albumin 3.3 L (3.5-5.0) g/dL Assessment and Plan Plan: #1 urinary tract infection with sepsis likely related to indwelling Bodwen catheter: Urine culture growing gram-negative bacilli. Continue IV Rocephin. #2 sepsis with hypotension. Blood pressures are showing improvement. #3 dehydration with acute renal failure due to prerenal azotemia and likely secondary to obstructive uropathy. Nephrology is following. AJAY inhibitor and Lasix are currently on hold. #4 recent hernia surgery in August 2017 #5 underlying history of insulin-dependent diabetes mellitus #6 Underlying history of diastolic congestive heart failure #7 Known history of benign prostatic hypertrophy maintained on Flomax at home. #8 obstructive uropathy with indwelling Bowden catheter: Seen by urology had TURP procedure yesterday. At this time Bowden catheter has been removed, will assess if patient can urinate on his own or not. He may need to have catheter reinserted, possible discharge to home today or tomorrow
[2017-10-09 12:48] LABS: Glucose,Whole Blood 112 mg/dL (75-99)
--- NOTE | 2017-10-09 14:54 | PN ---
PROGRESS NOTE Patient is seen for followup for acute kidney injury. His renal function has improved and acute renal failure has currently resolved. Serum creatinine is down to 0.79. Patient had TURP surgery this admission. He is currently doing well. PHYSICAL EXAMINATION: Blood pressure was 136/81, heart rate 100 per minute. He is afebrile. Examination of the heart S1, S2. Examination of the lungs, bilateral breath sounds are heard. Abdomen is soft, nontender. Examination of the lower extremities shows trace edema bilaterally. [employer] exam is grossly intact. LABS: Show sodium 140, potassium 4.3, chloride 105, hemoglobin 11.7 g/dL. ASSESSMENT: 1. Acute kidney injury, prerenal, currently resolved. 2. Benign prostatic hypertrophy status post TURP procedure. 3. Obstructive uropathy with indwelling Bowden catheter, currently status post removal of Bowden catheter, awaiting patient to void. PLAN: Patient is stable for discharge from Nephrology standpoint once he is able to void on his own. MMODL / IJN: [id number] /
[2017-10-09 15:36] VITALS: BP 103/63; PULSE 93; TEMP 97.4
== END 2017-10-09 17:23 | disposition home health service (06) | DRG 665 ==
LOC: EC 21:18 → 6SEL 10-04 00:46 → 4MS4W 10-04 13:42
PROVIDERS: ADMIT Internal Medicine; ATTEND Internal Medicine
PROC: 0VB08ZZ Excision of Prostate, Via Natural or Artificial Opening Endoscopic (ICD-10-PCS; principal; 2017-10-07 10:15)
DX: T83.511A Infection and inflammatory reaction due to indwelling urethral catheter, initial encounter (principal); A41.59 Other Gram-negative sepsis; I13.0 Hypertensive heart and chronic kidney disease with heart failure and stage 1 through stage 4 chronic kidney disease, or unspecified chronic kidney disease; I50.32 Chronic diastolic (congestive) heart failure; N13.8 Other obstructive and reflux uropathy; N17.9 Acute kidney failure, unspecified; N39.0 Urinary tract infection, site not specified; E11.22 Type 2 diabetes mellitus with diabetic chronic kidney disease; E86.0 Dehydration; J44.9 Chronic obstructive pulmonary disease, unspecified; N18.3 Chronic kidney disease, stage 3 (moderate); N26.1 Atrophy of kidney (terminal); N40.1 Benign prostatic hyperplasia with lower urinary tract symptoms; R31.0 Gross hematuria; R33.8 Other retention of urine; M19.90 Unspecified osteoarthritis, unspecified site; G47.33 Obstructive sleep apnea (adult) (pediatric); I25.2 Old myocardial infarction; Z79.4 Long term (current) use of insulin; Z79.899 Other long term (current) drug therapy; Z79.52 Long term (current) use of systemic steroids; Z88.5 Allergy status to narcotic agent; Z88.8 Allergy status to other drugs, medicaments and biological substances; Z91.041 Radiographic dye allergy status; Z91.040 Latex allergy status; Z87.891 Personal history of nicotine dependence; Z83.3 Family history of diabetes mellitus; Y84.6 Urinary catheterization as the cause of abnormal reaction of the patient, or of later complication, without mention of misadventure at the time of the procedure
CPT/HCPCS: 36415; 51702; 51798; 74018; 76770; 80048; 80053; 81001; 83036; 83735; 85025; 87077; 87086; 87186; 88305; 94640; 94760; 96360; 99285

== ENCOUNTER → 2017-10-07 | Day surgery (SDC) | payer MEDICARE ==
[2017-09-29 12:01] VITALS: BMI 36.6
[~2017-10-07] MED LIST changes: +AMPICILLIN 1,000 MG in SODIUM CHLORIDE 0.9% 50 ML IVPB ONE; +GENTAMICIN 140 MG in SODIUM CHLORIDE 0.9% 100 ML IVPB ONE; -HEPARIN SODIUM,PORCINE 5,000 UNIT/ML 1 ML VIAL SQ ONE
== END ==
LOC: OR 12:00
PROVIDERS: ATTEND Urology
DX: N40.1 Benign prostatic hyperplasia with lower urinary tract symptoms (principal); N13.8 Other obstructive and reflux uropathy; R33.8 Other retention of urine; R35.0 Frequency of micturition; R31.29 Other microscopic hematuria; Z53.9 Procedure and treatment not carried out, unspecified reason; E11.9 Type 2 diabetes mellitus without complications; I10 Essential (primary) hypertension; Z79.899 Other long term (current) drug therapy
CPT/HCPCS: 86850; 86900; 86901

== ENCOUNTER → 2017-10-12 | Outpatient (CLI) | payer MEDICARE ==
[2017-10-12 17:44] LABS: Basophils % (A) 0 %; Eosinophils # (A) 0.2 k/uL (0-0.7); Eosinophils % (A) 2 %; HCT 38.4 % (39.0-53.0); HGB 12.6 gm/dL (13.0-17.5); Lymphocytes # (A) 2.4 k/uL (1.0-4.8); Lymphocytes % (A) 26 %; MCH 30.4 pg (25.0-35.0); MCHC 32.7 g/dL (31.0-37.0); MCV 92.8 fL (80.0-100.0); Mean Platelet Volume 6.9; Monocytes # (A) 0.7 k/uL (0-1.0); Monocytes % (A) 7 %; Neutrophils # (A) 5.7 k/uL (1.3-7.7); Neutrophils % (A) 61 %; Platelet Count 248 k/uL (150-450); RBC 4.13 m/uL (4.30-5.90); WBC 9.4 k/uL (3.8-10.6)
[2017-10-12 17:49] LABS: Albumin 3.8 g/dL (3.5-5.0); Calcium 9.8 mg/dL (8.4-10.2); Potassium 4.8 mmol/L (3.5-5.1); Total Bilirubin 0.4 mg/dL (0.2-1.3); Total Protein 6.4 g/dL (6.3-8.2)
[2017-10-13 01:38] LABS: Iron Saturation 49.4 (15.00-50.00)
== END | disposition home or self-care (01) ==
LOC: LABWHC1 16:30
PROVIDERS: ATTEND Nurse Practitioner Family
DX: D64.9 Anemia, unspecified (principal); E55.9 Vitamin D deficiency, unspecified; N17.9 Acute kidney failure, unspecified
CPT/HCPCS: 36415; 80053; 82043; 82306; 82570; 82728; 83540; 83550; 85025

== ENCOUNTER 2017-10-15 18:19 | Emergency (ER) | payer MEDICARE ==
[2017-10-15 18:38] VITALS: RESP 20
--- NOTE | 2017-10-15 19:40 | ED ---
General Adult HPI - General Chief complaint: Abdominal Pain Stated complaint: needs catheter Time Seen by Provider: 10/15/17 19:03 Source: patient, RN notes reviewed, old records reviewed Mode of arrival: ambulatory Limitations: no limitations - History of Present Illness Initial comments: Chief complaint history of present illness this is a 66-year-old male who several days ago had a TURP because of acute retention. The catheter removed yesterday around 1 PM. For 24 hours he had no difficulty urinating and then the urine turn slightly pinkish and has not been able to urinate since 1 PM today. He spoke with Dr. mike her, on-call urologist. He recommends the patient have a Bowden catheter placed. The patient has an ALLERGY to latex and we don't have any latex free coud-tip catheters so Dr. Baker suggests a #16 latex free catheter. - Related Data Home Medications Medication Instructions Recorded Confirmed Carvedilol 25 mg PO BID 08/11/17 10/15/17 Fluticasone/Vilanterol [Breo 1 puff INHALATION RT-DAILY 08/11/17 10/15/17 Ellipta 200-25 Mcg INH] Lisinopril 30 mg PO HS 08/11/17 10/15/17 Tamsulosin [Flomax] 0.4 mg PO BID 08/11/17 10/15/17 Multivitamins, Thera [Multivitamin 1 tab PO HS 08/22/17 10/15/17 (formulary)] Allopurinol [Zyloprim] 100 mg PO BID 09/29/17 10/15/17 Furosemide [Lasix] 60 mg PO DAILY 09/29/17 10/15/17 INSULIN LISPRO (humaLOG) [humaLOG] 5 units SQ AC-TID 09/29/17 10/15/17 [place]-3 Fatty Acids/Fish Oil [Fish 1 cap PO HS 09/29/17 10/15/17 Oil 1,000 mg Softgel] Tiotropium Diana [Spiriva] 1 cap INHALATION RT-DAILY 09/29/17 10/15/17 Cranberry Unknown Dose 2 cap PO BID 10/04/17 10/15/17 Previous Rx's Medication Instructions Recorded Atorvastatin [Lipitor] 40 mg PO HS #30 tablet 09/03/17 Allergies Allergy/AdvReac Type Severity Reaction Status Date / Time codeine Allergy Unknown Verified 10/15/17 19:21 iodine Allergy "i could Verified 10/15/17 19:21 not move for 3 weeks" latex Allergy Rash/Hives/ Verified 10/15/17 19:21 blisters nitrous oxide Allergy Vomiting Verified 10/15/17 19:21 Review of Systems ROS Statement: Those systems with pertinent positive or pertinent negative responses have been documented in the HPI. Review of systems; no other complaints other than acute urinary retention. Patient is otherwise denying any visual acuity changes no headache no chest pain or shortness of breath no nausea no vomiting no back pain. No chills. No fever. No neuro deficits. His complaint is not being able to urinate since 1 PM. He has increased his fluids. All systems reviewed. Past medical problems significant for BPH, COPD, insulin-dependent diabetes, hypertension. Surgeries back surgery, hernia repair joint replacement. Family history noncontributory ALLERGIES to codeine, iodine and latex infectious oxide. The patient is a former smoker. Denies alcohol use. ROS Other: All systems not noted in ROS Statement are negative. Past Medical History Past Medical History: COPD, Diabetes Mellitus, Hypertension, Prostate Disorder History of Any Multi-Drug Resistant Organisms: None Reported Past Surgical History: Back Surgery, Hernia Repair, Joint Replacement, Orthopedic Surgery Past Anesthesia/Blood Transfusion Reactions: No Reported Reaction Past Psychological History: No Psychological Hx Reported Smoking Status: Former smoker Past Alcohol Use History: None Reported Past Drug Use History: None Reported - Past Family History Father Family Medical History: Cancer Mother Family Medical History: Diabetes Mellitus General Exam - General Exam Comments Initial Comments: Pertinent physical exam Vital signs temperature 98.3 pulse 98 respiratory rate 20 pulse ox 99% room air blood pressure while 5/69. Patient denies any chest pain shortness of breath. Patient has a sensation of full bladder. Patient states he feels full . No urine output for 7 hours. He does report that he increased his oral intake in order to create more urine. he was able to urinate for 24 hours after having had a catheter removed yesterday at 1 PM. But not since 1 PM today. Limitations: no limitations Course Vital Signs 10/15/17 18:36 Temperature 98.3 F Pulse Rate 98 Respiratory 20 Rate Blood Pressure 105/69 O2 Sat by Pulse 99 Oximetry Procedures - Procedures Initial comment: Procedure; placement of the Bowden catheter because of acute urinary retention for the past 7 hours. The patient had a TURP several days ago. The catheter was removed yesterday. Able to urinate for 24 hours and then it stopped abruptly. The patient has a latex ALLERGY. No available include a catheters that a latex free. #16-Lao latex free catheter was obtained. Urojet was used after proper cleansing of the meatus. Catheter was placed with minimal to no difficulty. 1200 mL of urine removed. Initially pink and then clear to yellow and then again with a small amount of redness in the hand. Urine sent for analysis and [employer]. Leg bag was applied catheter was secured to the inner right thigh so when he walks it does not pull on the catheter. Patient has appointment to follow-up with his urologist in the morning. Dr. Ribeiro Medical Decision Making - Medical Decision Making Medical decision making; this is a 66-year-old male who at a TURP several days ago. His catheter removed yesterday. He had 24 hours of being able to urinate without difficulty and then it stopped. He presents emergency room now with acute urinary retention. A Bowden catheter 16-Lao latex free was in the circumflex and with good results 1200 ML's of urine evacuated. Urine and urinalysis and cultures and performed the urine showed greater than 180 reds 16 whites and rare bacteria leuk esterase trace. Patient has ALLERGIES to codeine iodine and latex and nitrous oxide. He has recently been on antibiotics for urinary tract infection. Patient will be seeing his urologist in the morning. Patient be advised to discuss with his urologist whether or not and antibiotics were necessary at this time. - Lab Data Lab Results 10/15/17 Range/Units 19:20 Urine Color Yellow Urine Appearance Clear (Clear) Urine pH 6.0 (5.0-8.0) Ur Specific [place] 1.010 (1.001-1.035) Urine Protein 2+ H (Negative) Urine Glucose (UA) Negative (Negative) Urine Ketones Negative (Negative) Urine Blood Large H (Negative) Urine Nitrite Negative (Negative) Urine Bilirubin Negative (Negative) Urine Urobilinogen <2.0 (<2.0) mg/dL Ur Leukocyte Esterase Trace H (Negative) Urine RBC >182 H (0-5) /hpf Urine WBC 16 H (0-5) /hpf Urine Bacteria Rare H (None) /hpf Hyaline Casts 5 H (0-2) /lpf Urine Mucus Rare H (None) /hpf Disposition Clinical Impression: Acute urinary retention Disposition: HOME SELF-CARE Condition: Stable Instructions: Urinary Retention in Men (ED) Additional Instructions: Follow-up with your urologist in the morning as arranged. Discussed with him whether or not antibiotics be necessary. Is patient prescribed a controlled substance at d/c from ED?: No Referrals: Leslee Piña DO [Primary Care Provider] - 1-2 days Time of Disposition: 21:08
[2017-10-15] MEDS ORDERED: LIDOCAINE URO-JET JELLY 2% 5 ML KIT URETHRAL ONE (19:55)
[2017-10-15 20:43] LABS: Appearance,Urine Clear (Clear); Bacteria,Urine Rare /hpf; Bilirubin,Urine Negative (Negative); Blood,Urine Large (Negative); Color,Urine Yellow; Glucose,Urine (UA) Negative (Negative); Hyaline Casts,Urine 5 /lpf (0-2); Ketones,Urine Negative (Negative); Leukocyte Esterase,Urine Trace (Negative); Mucus,Urine Rare /hpf; Nitrite,Urine Negative (Negative); Protein,Urine 2+ (Negative); RBC,Urine >182 /hpf (0-5); Urobilinogen,Urine <2.0 mg/dL (<2.0); WBC,Urine 16 /hpf (0-5)
[2017-10-15 21:36] VITALS: BP 112/56; PULSE 78; TEMP 98.6
== END 2017-10-15 21:20 | disposition home or self-care (01) ==
LOC: EC 18:19
DX: R33.9 Retention of urine, unspecified (principal); J44.9 Chronic obstructive pulmonary disease, unspecified; E11.9 Type 2 diabetes mellitus without complications; I10 Essential (primary) hypertension; Z87.438 Personal history of other diseases of male genital organs; Z87.891 Personal history of nicotine dependence; Z79.02 Long term (current) use of antithrombotics/antiplatelets; Z79.51 Long term (current) use of inhaled steroids; Z79.4 Long term (current) use of insulin; Z79.899 Other long term (current) drug therapy; Z88.5 Allergy status to narcotic agent; Z91.048 Other nonmedicinal substance allergy status; Z91.040 Latex allergy status; Z88.8 Allergy status to other drugs, medicaments and biological substances; Z98.890 Other specified postprocedural states
CPT/HCPCS: 51702; 81001; 87086; 99284

== ENCOUNTER → 2018-01-26 | Outpatient (CLI) | payer MEDICARE ==
--- NOTE | 2018-01-26 15:36 | PN ---
PROGRESS NOTE Gene is a 67-year-old male patient, known history of COPD and obstructive sleep apnea. The patient has an AHI of 8.4, yet the disease is positional. Worse in a supine body position with an AHI of 19.4. He also demonstrated severe nocturnal oxygen desaturation. He has a known history of COPD and chronic hypoxic and hypercapnic respiratory failure. He is a survivor of previous lacunar CVA and he has diabetes and hypertension. Currently the patient on the VPAP auto with a minimum pressure of 4, maximum pressure of 12 and a pressure support of 4. He is very happy with his ongoing treatment. Unfortunately, did not demonstrate adequate compliance especially within the first two months and it seems that the insurance company stopped paying for his VPAP machine. On today's evaluation, it seems the patient has been using his VPAP every night. His average use around 4.7 hours per night. He has put on his VPAP 28/30 days yet he has achieved more than 4 hours only half of the time. His average pressures are 10.8/6.8. Tidal volumes of 480 with a respiratory rate of 18, and AHI while on treatment is down to 1.4 with a leak factor of 12 L/minute. He states that he is benefiting from the treatment. He is not having any major respiratory difficulties and his COPD is also inactive and stable at this point in time. He wants to continue the treatment yet the problem is that he may end up paying for his own machine knowing that the insurance stopped paying for his machine due to poor tolerability and compliance initially. REVIEW OF SYSTEMS: 12-point review of system was done. Positive findings are mentioned above. No major worsened shortness of breath. No angina. No chest pain. He reports that he is benefitting from the CPAP that he is using it every night. He wakes up refreshed and alert during the day. He also receives oxygen 2 L/minutes nasal cannula through his oxygen port. PHYSICAL EXAMINATION: BP is 132/56, pulse 88, respirations 16, weight is 256, temperature 98.1, saturation 96%. GENERAL: Calm, comfortable. Head is atraumatic, normocephalic. NECK: Supple. There is no JVD. No goiter or neck mass. Mallampati class 4. Lungs diminished, otherwise clear. HEART: Sounds regular rate and rhythm. Normal S1, S2. No S3, no S4. No murmurs. ABDOMEN: Soft, nontender. No organomegaly. EXTREMITIES: No edema. No cyanosis or clubbing. IMPRESSION: 1. Obstructive sleep apnea, mild positional AHI of 8.4, worse in the supine body position. 2. Severe chronic obstructive pulmonary disease with chronic hypoxic and hypercapnic respiratory failure. 3. Suboptimal compliance initially to his VPAP with subsequent improvement clinical response. The patient is demonstrating currently 4.7 hours of VPAP use every night. 4. Chronic hypoxic respiratory failure. 5. Chronic hypercapnic respiratory failure. 6. History of cerebrovascular accident. 7. Hypertension. 8. Diabetes mellitus. PLAN: 1. Encourage continuing the same unit at the current settings. 2. Offer this patient Air Fit F20 large size full-face mask. 3. We will try to negotiate with [facility] and see if we can cut down the cost of the medication especially that it will be an out of pocket cost. We will help this patient to obtain a VPAP machine if ultimately ends up losing this current unit back to his DME. 4. Will continue to follow. MMKEELYL / IJN: [id number] /
== END | disposition home or self-care (01) ==
LOC: SLEEP 13:48
PROVIDERS: ATTEND Internal Medicine Critical Care Medicine
DX: Z53.9 Procedure and treatment not carried out, unspecified reason (principal)

== ENCOUNTER 2018-06-25 06:15 | Day surgery (SDC) | payer MEDICARE ==
[2018-06-23 10:32] VITALS: BMI 35.9
[~2018-06-25 06:15] MED LIST changes: -AMPICILLIN 1,000 MG in SODIUM CHLORIDE 0.9% 50 ML IVPB ONE; +DEXAMETHASONE SOD PHOSPHATE 10 MG/ML 1 ML VIAL IV ONE; -GENTAMICIN 140 MG in SODIUM CHLORIDE 0.9% 100 ML IVPB ONE; +HYDROmorphone 0.5 MG/0.5 ML SYRINGE IVP PRN; +LACTATED RINGERS 1,000 ML IV SCH; +LIDOCAINE 1% 20 ML VIAL (10MG/ML) FOR IV START INTRADERMA PRN; +ONDANSETRON 4 MG/2 ML VIAL IVP ONE; +Pre Op ABX Message 1 EACH MISC MISCELLANE ONE
[2018-06-25] MEDS ORDERED: LIDOCAINE 1% 20 ML VIAL (10MG/ML) FOR IV START INTRADERMA ONE (07:14)
[2018-06-25] MEDS ORDERED: DEXAMETHASONE SOD PHOS (MDV) 100 MG/10 ML VIAL IV ONE (07:15)
[2018-06-25] MEDS ORDERED: MIDAZOLAM 2 MG/2 ML VIAL ONE (07:55)
[2018-06-25] MEDS ORDERED: fentaNYL (PF) 50 MCG/ML 2 ML AMP ONE (07:55)
[2018-06-25] MEDS ORDERED: PROPOFOL 10 MG/ML 20 ML VIAL IV ONE (07:55)
[2018-06-25] MEDS ORDERED: LIDOCAINE HCL/PF 20 MG/ML 10 ML AMP SQ ONE ×2 (07:57→08:13)
[2018-06-25 08:48] VITALS: TEMP 97.1
[2018-06-25 09:48] VITALS: BP 155/85; PULSE 67; RESP 18
[2018-06-25 11:56] LABS: Glucose,Whole Blood 116 mg/dL (75-99)
[2018-06-25 11:59] LABS: Glucose,Whole Blood 95 mg/dL (75-99)
--- NOTE | 2018-06-29 11:55 | P.OP ---
Date of Procedure: 06/25/18 Procedure(s) Performed: PREOPERATIVE DIAGNOSES: 1. Right carpal tunnel syndrome; 2. Right ring finger triggering POSTOPERATIVE DIAGNOSES: 1. Right carpal tunnel syndrome; 2. Right ring finger triggering PROCEDURES PERFORMED: 1. Right open carpal tunnel release; 2. Right ring finger trigger release (A1 clay) ANESTHESIA: Local plus IV sedation [employer]: None COMPLICATIONS: None ESTIMATED BLOOD LOSS: Less than 10 cc TOURNIQUET: 17 minutes DISPOSITION: To post-anesthesia care unit INDICATIONS: Mr. Zuleta is a 67-year-old male with a history of carpal tunnel syndrome and right ring finger triggering, who presents today for carpal tunnel and trigger release. The risks and potential complications of surgery have been discussed at length. The consent form has been signed. PROCEDURE: The patient was taken to the operating room after appropriate consent was obtained. IV sedation was initiated and the right upper extremity was prepared and draped in the usual aseptic fashion with Hibiclens prep. The path of the incision and deeper tissues were injected with 2% Lidocaine solution. A total of approximately 10 cc was used. Exsanguination of the limb with an Esmarch bandage was accomplished and the tourniquet was inflated to 200 mm Hg. The skin was then incised with a scalpel just through the dermis into the subcutaneous tissue. The location of the incision was at the base of the palm, at the radial border of the fourth ray. Blunt spreading using dissecting scissors was performed down to palmar fascia, which was then split using a #15 blade scalpel, revealing the underlying transverse carpal ligament. The transverse carpal ligament was incised with this blade under direct visualization at its ulnar border until it was fully released. The contents of the carpal tunnel were normal. No aberrant muscles, tenosynovitis, or tumors were noted. The proximal and distal fascial releases were completed using gentle push technique with small dissecting scissors. Complete release was confirmed by visualization and palpation. Hemostasis was obtained with a bipolar electrocautery device as well as pressure over the wound after deflation of the tourniquet. Closure was performed with 4-0 nylon sutures in vertical mattress technique. A horizontal incision approximately 1.5 cm in length was created over the palm in line with the fourth ray. This corresponded to the distance between the proximal most skin crease and the PIP joint crease. The incision was taken down just through dermis, and then skin hooks were applied and blunt dissection was then carried down to the tendon sheath. Tendon sheath was exposed medially and laterally and retractors were applied to retract neurovascular structures. The proximal extent of the A1 clay was noted and released under direct visualization using a number 15 blade. The sheath was extremely tight, sclerotic and thick. However, there was no significant underlying tendon damage. The flexor tendon was then removed from its sheath using a Ragnell retractor and flexion and extension of the PIP joint was noted to be full. The the patient had received quite a bit of sedation during the operation and therefore was unable to be awoken from sedation to demonstrate finger flexion and extension . Dressing was applied after irrigation and use of bipolar electrocautery for hemostasis. Sterile dressing and light compressive dressing were applied to both wounds and the patient was taken to recovery room in stable condition. Sponge and needle count were correct.
== END 2018-06-25 10:05 | disposition home or self-care (01) ==
LOC: OR 06:15
PROVIDERS: ATTEND Orthopaedic Surgery
DX: G56.03 Carpal tunnel syndrome, bilateral upper limbs (principal); M65.332 Trigger finger, left middle finger; M65.342 Trigger finger, left ring finger; M19.032 Primary osteoarthritis, left wrist; M19.031 Primary osteoarthritis, right wrist; M18.0 Bilateral primary osteoarthritis of first carpometacarpal joints; E11.9 Type 2 diabetes mellitus without complications; I10 Essential (primary) hypertension; E78.5 Hyperlipidemia, unspecified; Z79.4 Long term (current) use of insulin; Z79.899 Other long term (current) drug therapy; Z91.040 Latex allergy status; Z88.8 Allergy status to other drugs, medicaments and biological substances; Z91.048 Other nonmedicinal substance allergy status
CPT/HCPCS: 64721; 26055; J2250; J2405; J3010; J2001; J1100; J2704

== ENCOUNTER 2020-06-20 09:50 | Day surgery (SDC) | payer MEDICARE ==
[2020-06-18 16:21] VITALS: BMI 37.0
[~2020-06-20 09:50] MED LIST changes: +ACETAMINOPHEN TAB 500 MG TAB PO PRN; -DEXAMETHASONE SOD PHOSPHATE 10 MG/ML 1 ML VIAL IV ONE; +DEXAMETHASONE SOD PHOSPHATE 4 MG/ML 1 ML VIAL IV PRN; +HEPARIN SODIUM,PORCINE 5,000 UNIT/ML 1 ML VIAL SQ PRN; -HYDROmorphone 0.5 MG/0.5 ML SYRINGE IVP PRN; +LIDOCAINE 1% (10MG/ML) FOR IV START INTRADERMA PRN; -LIDOCAINE 1% 20 ML VIAL (10MG/ML) FOR IV START INTRADERMA PRN; +MIDAZOLAM 2 MG/2 ML VIAL IV PRN; -ONDANSETRON 4 MG/2 ML VIAL IVP ONE; +ONDANSETRON 4 MG/2 ML VIAL IVP PRN; -Pre Op ABX Message 1 EACH MISC MISCELLANE ONE; +fentaNYL (PF) 50 MCG/ML 2 ML AMP IVP PRN
[2020-06-20 10:21] VITALS: TEMP 97.9
[2020-06-20] MEDS ORDERED: ONDANSETRON 4 MG/2 ML VIAL ONE ×2 (10:36→11:31)
[2020-06-20 10:43] LABS: Glucose,Whole Blood 171 mg/dL (75-99)
[2020-06-20 11:03] LABS: HCT 41.7 % (39.0-53.0); HGB 13.9 gm/dL (13.0-17.5); MCH 30.8 pg (25.0-35.0); MCHC 33.2 g/dL (31.0-37.0); MCV 92.8 fL (80.0-100.0); Mean Platelet Volume 6.8; Platelet Count 216 k/uL (150-450); RDW 13.3 % (11.5-15.5); WBC 7.7 k/uL (3.8-10.6)
[2020-06-20 11:12] LABS: African American GFR (CKD) >90 (>60 ml/min/1.73 sqM); Anion Gap 4 mmol/L; Blood Urea Nitrogen 20 mg/dL (9-20); Calcium 9.6 mg/dL (8.4-10.2); Carbon Dioxide 34 mmol/L (22-30); Chloride 99 mmol/L (98-107); Glucose 182 mg/dL (74-99); Non-African American GFR(CKD) >90 (>60 ml/min/1.73 sqM); Potassium 4.7 mmol/L (3.5-5.1); Sodium 137 mmol/L (137-145)
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
[2020-06-20] MEDS ORDERED: fentaNYL (PF) 50 MCG/ML 2 ML AMP ONE (11:31)
[2020-06-20] MEDS ORDERED: SUCCINYLCHOLINE CHLORIDE 100 MG/5 ML SYR IV ONE (11:31)
[2020-06-20] MEDS ORDERED: NEOSTIGMINE 1 MG/ML 10 ML VIAL ONE (11:31)
[2020-06-20] MEDS ORDERED: LIDOCAINE 1% INJ 10MG/ML (20 ML MDV) ONE (11:31)
[2020-06-20] MEDS ORDERED: GLYCOPYRROLATE 0.2 MG/ML 2 ML VIAL ONE (11:31)
[2020-06-20] MEDS ORDERED: ROCURONIUM 10 MG/ML (5 ML VIAL) IV ONE (11:31)
[2020-06-20] MEDS ORDERED: MIDAZOLAM 2 MG/2 ML VIAL ONE (11:31)
[2020-06-20] MEDS ORDERED: LACTATED RINGERS 1,000 ML IV ONE (12:30)
--- NOTE | 2020-06-20 12:44 | P.OP ---
Date of Procedure: 06/20/20 Preoperative Diagnosis: Incarcerated ventral hernia Postoperative Diagnosis: Incarcerated recurrent ventral hernia Procedure(s) Performed: (Repair of incarcerated recurrent ventral hernia with phasic mesh Anesthesia: JACKY Surgeon: Rony Dangelo Estimated Blood Loss (ml): 10 Pathology: none sent Condition: stable Disposition: PACU Description of Procedure: The patient's placed on the operative table in the supine position. He received general anesthesia. His abdomen was prepped and draped usual sterile fashion. The skin was incised in midline over top of the hernia. The hernia sac was found. The subcutaneous tissues were divided off the hernia sac and the fascia external oblique was exposed. The hernia sac was inverted back the pleural cavity. And then the fascia Performed using 0 Ethibond [id number] pop off suture and then #1 status suture. After the fascia was repaired a piece of phasic mesh was placed over top apparent secured with the secure strap tacker. A ANGELO drains placed through separate stab incision and brought up through the gastric area. René's fascia close [place]. Skin frances. Patient top she will was sent to recovery in stable condition.
[2020-06-20] MEDS ORDERED: HYDROmorphone 1 MG/ML 1 ML SYRINGE IVP ONE ×2 (13:06→13:11)
[2020-06-20] MEDS ORDERED: HYDROmorphone 0.5 MG/0.5 ML SYRINGE IVP ONE (13:21)
[2020-06-20 14:49] VITALS: RESP 18
[2020-06-20 15:35] VITALS: BP 138/69; PULSE 86
== END 2020-06-20 15:33 | disposition home or self-care (01) ==
LOC: OR 09:50
PROVIDERS: ATTEND Surgery
DX: K43.6 Other and unspecified ventral hernia with obstruction, without gangrene (principal); J44.9 Chronic obstructive pulmonary disease, unspecified; E11.9 Type 2 diabetes mellitus without complications; E78.5 Hyperlipidemia, unspecified; I10 Essential (primary) hypertension; M19.90 Unspecified osteoarthritis, unspecified site; N40.0 Benign prostatic hyperplasia without lower urinary tract symptoms; H91.91 Unspecified hearing loss, right ear; G47.33 Obstructive sleep apnea (adult) (pediatric); Z86.73 Personal history of transient ischemic attack (TIA), and cerebral infarction without residual deficits; Z98.890 Other specified postprocedural states; Z96.651 Presence of right artificial knee joint; Z96.641 Presence of right artificial hip joint; Z99.89 Dependence on other enabling machines and devices; Z98.41 Cataract extraction status, right eye; Z98.42 Cataract extraction status, left eye; Z96.1 Presence of intraocular lens; Z87.891 Personal history of nicotine dependence; Z79.51 Long term (current) use of inhaled steroids; Z79.899 Other long term (current) drug therapy; Z79.891 Long term (current) use of opiate analgesic; Z79.4 Long term (current) use of insulin; Z91.048 Other nonmedicinal substance allergy status; Z91.040 Latex allergy status; Z88.4 Allergy status to anesthetic agent; Z97.2 Presence of dental prosthetic device (complete) (partial); Z80.42 Family history of malignant neoplasm of prostate; Z83.79 Family history of other diseases of the digestive system; Z83.3 Family history of diabetes mellitus; Z80.6 Family history of leukemia
CPT/HCPCS: 80048; 85027; 49566; 49568; C1713; J2250; J1644; J1100; J2710; J0690; J2405; J2001; J3010; J1170 ×2; J0330

== ENCOUNTER 2020-07-12 18:11 | Emergency (ER) | payer MEDICARE ==
[2020-07-12] MEDS ORDERED: TOPICAL SKIN ADHESIVE 1 EACH AMP TOPICAL ONE (19:10)
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
[2020-07-12 20:19] VITALS: BP 158/78; PULSE 99; RESP 20; TEMP 98
== END 2020-07-12 20:17 | disposition home or self-care (01) ==
LOC: EC 18:11
DX: T81.31XA Disruption of external operation (surgical) wound, not elsewhere classified, initial encounter (principal); E11.9 Type 2 diabetes mellitus without complications; J44.9 Chronic obstructive pulmonary disease, unspecified; I10 Essential (primary) hypertension; M19.90 Unspecified osteoarthritis, unspecified site; E78.5 Hyperlipidemia, unspecified; G47.33 Obstructive sleep apnea (adult) (pediatric); Z87.891 Personal history of nicotine dependence; Z86.73 Personal history of transient ischemic attack (TIA), and cerebral infarction without residual deficits; Z96.643 Presence of artificial hip joint, bilateral; Z79.4 Long term (current) use of insulin
CPT/HCPCS: 99283

== ENCOUNTER → 2021-06-13 | Outpatient (CLI) | payer MEDICARE ==
--- NOTE | 2021-06-13 15:36 | XR ---
Lumbar spine HISTORY: M99.03 Dysfunction of lumbar region M99.04 Dysfunc 3 views of lumbar spine, comparison to CT abdomen pelvis scan 08/24/2017 There is multilevel spondylosis. Lumbar vertebral bodies show preserved height. Bone mineralization i s thought to be slightly reduced. Mild anterior wedging noted at T12. Vacuum disc phenomenon again n oted at L5-S1, and also at L2-3 there is loss of disc height at intervertebral levels. Sclerosis is p resent in the posterior elements of the lumbar spine. There are dense atherosclerotic vascular calcif ications within the aorta iliac distribution. Postop changes noted to the pelvis, screw is noted on t he lateral view. IMPRESSION: Degenerative disc disease, facet arthropathy
== END | disposition home or self-care (01) ==
LOC: RADXRMAIN 15:02
PROVIDERS: ATTEND Chiropractor
DX: M47.817 Spondylosis without myelopathy or radiculopathy, lumbosacral region (principal); M51.37 Other intervertebral disc degeneration, lumbosacral region
CPT/HCPCS: 72100

== ENCOUNTER → 2021-10-28 | Outpatient (CLI) | payer MEDICARE ==
--- NOTE | 2021-10-28 13:10 | CT ---
EXAMINATION TYPE: CT abdomen pelvis wo con DATE OF EXAM: 10/28/2021 COMPARISON: CT dated 08/24/2017 HISTORY: inguinal hernia CT DLP: 1978.3 mGycm Automated exposure control for dose reduction was used. TECHNIQUE: Helical acquisition of images was performed from the lung bases through the pelvis. FINDINGS: LUNG BASES: No significant abnormality is appreciated. LIVER/GB: Grossly unremarkable liver. The gallbladder is contracted over gallbladder calculi without evidence of acute cholecystitis. PANCREAS: No significant abnormality is seen. SPLEEN: No significant abnormality is seen. ADRENALS: No significant abnormality is seen. KIDNEYS: Right upper pole renal cyst measuring 16 mm without gross suspicious feature yet suboptimall y assessed by this CT scan. Right renal vascular calcifications. Atrophic changes of the left kidney. Suspected left upper pole 2 mm nonobstructing renal calculus. FREE AIR: No free air is visualized RETROPERITONEAL ADENOPATHY: None visualized REPRODUCTIVE ORGANS: Partially obscured by artifacts. URINARY BLADDER: Partially obscured by artifacts. PELVIC ADENOPATHY: No pathologically enlarged pelvic lymph nodes. OSSEOUS STRUCTURES: Right total hip arthroplasty. Irregularity and remodeling of the right iliac bon e, stable. Degenerative changes of the lower thoracic and lower lumbar spine. BOWEL: Grossly unremarkable stomach, duodenum and small bowel. Fecal loading of the colon with scatt ered uncomplicated colonic diverticulosis. Normal appendix. OTHER: Anterior abdominal wall subcutaneous well-defined collection measuring 7.8 x 12.6 x 10.2 cm, s een at or below the level of umbilicus and possibly representing postoperative collection/seroma. No definite gas seen within the collection however infected collection cannot be excluded. Recommend cli nical correlation and surgical consultation. More inferior subcutaneous fat stranding, fluid, scar an d overlying skin thickening. Questionable small left fat-containing inguinal hernia. Arterial atheros clerotic calcifications. No sizable ascites. IMPRESSION: Anterior abdominal wall inferior midline subcutaneous collection as detailed above. This could repres ent postoperative collection/seroma however infected collection/abscess cannot be excluded. Recommend clinical correlation and surgical consultation. Other findings as described above. A Yellow level critical message alert has been initiated for Marti Heck MD via the [employer] Critical Results System on 10/28/2021 1:07 PM. This message alert has been sent to Marti Valdivia MD via the preferences provided by the clinician for the receipt of Radiology Critical Findi ngs. Message ID [id number].
== END | disposition home or self-care (01) ==
LOC: RADCTMAIN 11:50
PROVIDERS: ATTEND Surgery Plastic and Reconstructive Surgery
DX: K43.2 Incisional hernia without obstruction or gangrene (principal)
CPT/HCPCS: 74176

== ENCOUNTER 2021-11-14 06:43 | Day surgery (SDC) | payer MEDICARE ==
[2021-11-11 16:20] VITALS: BMI 39.9
[~2021-11-14 06:43] MED LIST changes: -ACETAMINOPHEN TAB 500 MG TAB PO PRN; -DEXAMETHASONE SOD PHOSPHATE 4 MG/ML 1 ML VIAL IV PRN; -HEPARIN SODIUM,PORCINE 5,000 UNIT/ML 1 ML VIAL SQ PRN; -MIDAZOLAM 2 MG/2 ML VIAL IV PRN; -ONDANSETRON 4 MG/2 ML VIAL IVP PRN; -fentaNYL (PF) 50 MCG/ML 2 ML AMP IVP PRN
[2021-11-14 07:12] VITALS: TEMP 97.6
[2021-11-14 07:20] LABS: Glucose,Whole Blood 139 mg/dL (70-110)
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
[2021-11-14] MEDS ORDERED: PROPOFOL 10 MG/ML 20 ML VIAL IV ONE (07:55)
--- NOTE | 2021-11-14 08:09 | P.PCN ---
Date of Procedure: 11/14/21 Description of Procedure: PREOPERATIVE DIAGNOSIS: Personal history of colon polyps Family history colon polyps Colonoscopy screening POSTOPERATIVE DIAGNOSIS: Tubular adenoma hepatic flexure Tubular adenoma ascending colon Sigmoid diverticulosis OPERATION: Colonoscopy to the ileocecal valve and appendiceal orifice, cecum Colonoscopy with hot snare polypectomy SURGEON: Marti Heck MD. ANESTHESIA: MAC. INDICATIONS: The patient is an 71-year-old male who presents family history of colon polyps and personal history of colon polyps. Last colonoscopy 10 years. Benefits and risks were described and informed consent was obtained. DESCRIPTION OF PROCEDURE: The patient had undergone Sutab prep. The patient had been brought into the operating room and laid in the left lateral decubitus position. After adequate intravenous sedation, the rectum was examined with 2% lidocaine jelly. The pr ostate was unremarkable. No external hemorrhoids were encountered. The rectal tone was within normal limits. No lesions were palpated in the rectal vault. An Olympus colonoscope was advanced until the cecum, ileocecal valve and appendiceal orifice were clearly viewed. The prep was poor to fair. Sigmoid diverticulosis was encountered. Colonic polyps were found and removed. No evidence of focal colitis was found. Retroflexion of the scope demonstrated grade 1 internal hemorrhoids without active bleeding or inflammation. The colon was desufflated. The patient had tolerated the procedure well. Withdrawal time was over 6 minutes. FINDINGS: Aronchick preparation quality scale 3+ (1-5) Internal hemorrhoids, grade 1 No external hemorrhoids, grade 4. No arteriovenous malformations. Sigmoid diverticulosis Removal of 3 polyps: - Snare polypectomy ascending colon, 8 mm tubulovillous adenoma polyp. - Snare polypectomy hepatic flexure 2, 3 to 12 mm flat villous adenoma polyp. No focal colitis. RECOMMENDATIONS: Given severity of tubular adenomas and poor prep, recommend repeat colonoscopy 1 year, 2022 Plan - Discharge Summary Discharge Rx Participant: No New Discharge Prescriptions: Continue carvediloL 25 mg PO BID Tamsulosin [Flomax] 0.4 mg PO BID Multivitamins, Thera [Multivitamin (formulary)] 1 tab PO HS Atorvastatin [Lipitor] 40 mg PO HS #30 tablet allopurinoL [Zyloprim] 300 mg PO DAILY Gabapentin 600 mg PO TID Hydrocodone/Acetaminophen [Hydrocodone/Acetaminophen 10-300 mg] 1 tab PO TID lisinopriL 20 mg PO QAM Magnesium 400 mg PO DAILY Insulin Degludec [Tresiba] 32 units SQ QAM Discharge Medication List Tamsulosin [Flomax] 0.4 mg PO BID 08/11/17 [History] carvediloL 25 mg PO BID 08/11/17 [History] Multivitamins, Thera [Multivitamin (formulary)] 1 tab PO HS 08/22/17 [History] Atorvastatin [Lipitor] 40 mg PO HS #30 tablet 09/03/17 [Rx] allopurinoL [Zyloprim] 300 mg PO DAILY 09/29/17 [History] Gabapentin 600 mg PO TID 06/23/18 [History] Hydrocodone/Acetaminophen [Hydrocodone/Acetaminophen 10-300 mg] 1 tab PO TID 06/23/18 [History] lisinopriL 20 mg PO QAM 06/18/20 [History] Insulin Degludec [Tresiba] 32 units SQ QAM 11/11/21 [History] Magnesium 400 mg PO DAILY 11/11/21 [History] Follow up Appointment(s)/Referral(s): Marti Heck MD [STAFF PHYSICIAN] - 12/03/21 Patient Instructions/Handouts: Diverticulosis (GEN), Colorectal Polyps (GEN), Diverticulosis Diet (GEN) Activity/Diet/Wound Care/Special Instructions: Repeat colonoscopy in one year, 2022. Recommend 2 day prep for next colonoscopy. Discharge Disposition: HOME SELF-CARE
[2021-11-14 08:11] VITALS: RESP 18
[2021-11-14 08:26] VITALS: BP 121/74; PULSE 89
== END 2021-11-14 09:10 | disposition home or self-care (01) ==
LOC: ORWHC2ENDO 06:43
PROVIDERS: ATTEND Surgery Plastic and Reconstructive Surgery
DX: Z12.11 Encounter for screening for malignant neoplasm of colon (principal); D12.2 Benign neoplasm of ascending colon; D12.3 Benign neoplasm of transverse colon; K57.30 Diverticulosis of large intestine without perforation or abscess without bleeding; K64.0 First degree hemorrhoids; Z86.010 Personal history of colon polyps; Z83.71 Family history of colonic polyps; J44.9 Chronic obstructive pulmonary disease, unspecified; Z86.73 Personal history of transient ischemic attack (TIA), and cerebral infarction without residual deficits; E11.69 Type 2 diabetes mellitus with other specified complication; E78.5 Hyperlipidemia, unspecified; I10 Essential (primary) hypertension; M19.90 Unspecified osteoarthritis, unspecified site; G47.33 Obstructive sleep apnea (adult) (pediatric); N40.0 Benign prostatic hyperplasia without lower urinary tract symptoms; H91.91 Unspecified hearing loss, right ear; Z87.891 Personal history of nicotine dependence; Z80.6 Family history of leukemia; Z80.42 Family history of malignant neoplasm of prostate; Z83.79 Family history of other diseases of the digestive system; Z79.899 Other long term (current) drug therapy; Z79.891 Long term (current) use of opiate analgesic; Z79.4 Long term (current) use of insulin; Z88.3 Allergy status to other anti-infective agents; Z88.8 Allergy status to other drugs, medicaments and biological substances; Z91.040 Latex allergy status
CPT/HCPCS: 88305; 45385; J2704

== ENCOUNTER 2021-12-23 12:49 | Day surgery (SDC) | payer MEDICARE ==
[2021-12-23 13:28] VITALS: TEMP 98.7
--- NOTE | 2021-12-23 14:20 | US ---
Ultrasound-guided paracentesis. DATE OF EXAM: 12/23/2021 CLINICAL HISTORY: Subcutaneous anterior abdominal seroma The procedure was discussed with the patient. The risks, complications, benefits, and alternatives we re discussed and any questions were answered. Informed consent was obtained. The patient was placed s upine on the ultrasound table and prepped and draped in the usual sterile fashion. All elements of maximal barrier technique were utilized. Under ultrasound guidance, access into subc utaneous fluid collection was obtained, via the paracentesis catheter system and direct ultrasound gu idance. The collection appeared to be organized with solid components predominating. A small amount o f fluid was aspirated. The patient was stable throughout the procedure and remained stable upon discharge from Department of Radiology. IMPRESSION: Successful ultrasound-guided seroma drainage. However the majority of the cavity appeared to be organ ized consolidation with very little fluid component.
[2021-12-23 14:29] VITALS: BP 130/74; PULSE 87; RESP 14
== END 2021-12-23 14:26 | disposition home or self-care (01) ==
LOC: RADPROMAIN 12:49
PROVIDERS: ATTEND Surgery Plastic and Reconstructive Surgery
DX: S39.91XD Unspecified injury of abdomen, subsequent encounter (principal); Z88.3 Allergy status to other anti-infective agents; Z91.040 Latex allergy status; Z91.09 Other allergy status, other than to drugs and biological substances; Z79.4 Long term (current) use of insulin; Z79.899 Other long term (current) drug therapy; Z79.891 Long term (current) use of opiate analgesic; Z87.891 Personal history of nicotine dependence; X58.XXXD Exposure to other specified factors, subsequent encounter; Z80.6 Family history of leukemia; Z80.42 Family history of malignant neoplasm of prostate; Z83.3 Family history of diabetes mellitus; Z84.89 Family history of other specified conditions
CPT/HCPCS: 10030; 49083; 76942

== ENCOUNTER → 2022-01-01 | Outpatient (CLI) | payer MEDICARE ==
[2022-01-01 15:45] VITALS: BP 173/77; PULSE 77; TEMP 98.9; BMI 40.6
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
== END | disposition home or self-care (01) ==
LOC: BARWHC3 15:23
PROVIDERS: ATTEND Surgery Plastic and Reconstructive Surgery
DX: E66.01 Morbid (severe) obesity due to excess calories (principal); M79.3 Panniculitis, unspecified; K46.9 Unspecified abdominal hernia without obstruction or gangrene; Z68.41 Body mass index [BMI] 40.0-44.9, adult
CPT/HCPCS: 99212

== ENCOUNTER → 2022-04-16 | Outpatient (CLI) | payer MEDICARE ==
[2022-04-17 00:56] LABS: Basophils # (A) 0.04 X 10*3/uL (0.00-0.10); Basophils % (A) 0.5 %; Eosinophils # (A) 0.45 X 10*3/uL (0.04-0.35); Eosinophils % (A) 5.9 %; HCT 43.1 % (39.6-50.0); HGB 13.2 g/dL (13.0-17.0); Immature Grans, Automated 0.5 %; Lymphocytes % (A) 22.4 %; MCH 30.4 pg (27.0-32.0); MCHC 30.6 g/dL (32.0-37.0); MCV 99.3 fL (80.0-97.0); Mean Platelet Volume 9.3 fL (9.5-12.2); Monocytes # (A) 0.66 X 10*3/uL (0.20-1.00); Monocytes % (A) 8.7 %; NRBC Per 100 WBC 0 /100 WBCS (0.0-0.0); Platelet Count 201 X 10*3/uL (140-440); RBC 4.34 X 10*6/uL (4.40-5.60); RDW 13.2 % (11.5-14.5); WBC 7.59 X 10*3/uL (4.50-10.00)
[2022-04-17 02:57] LABS: African American GFR (CKD) 92.5 (60.0-200.0); Albumin 3.8 g/dL (3.8-4.9); Albumin/Globulin Ratio 1.65 (1.60-3.17); Anion Gap 10.9 mmol/L (10.00-18.00); BUN/Creat Ratio 20.75 Ratio (12.00-20.00); Blood Urea Nitrogen 19.8 mg/dL (9.0-27.0); Calcium 9.5 mg/dL (8.7-10.3); Carbon Dioxide 30.6 mmol/L (20.0-27.5); Globulin 2.3 g/dL (1.6-3.3); Non-African American GFR(CKD) 79.8 (60.0-200.0); Total Bilirubin 0.5 mg/dL (0.30-1.20); Total Protein 6.1 g/dL (6.2-8.2)
== END | disposition home or self-care (01) ==
LOC: LABWHC1 14:32
PROVIDERS: ATTEND Surgery Plastic and Reconstructive Surgery
DX: Z01.812 Encounter for preprocedural laboratory examination (principal)
CPT/HCPCS: 80053; 85025

== ENCOUNTER 2022-04-28 07:30 | Inpatient (IN) | payer MEDICARE ==
[2022-04-23 13:22] VITALS: BMI 39.7
[~2022-04-28 07:30] MED LIST changes: -LACTATED RINGERS 1,000 ML IV SCH; -LIDOCAINE 1% (10MG/ML) FOR IV START INTRADERMA PRN; +ceFAZolin 3 GM in SODIUM CHLORIDE 0.9% 100 ML IVPB PRN
[2022-04-28] MEDS ORDERED: HEPARIN SODIUM,PORCINE/PF 5,000 UNIT/0.5 ML SYRINGE SQ PRN (08:49)
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
[2022-04-28] MEDS ORDERED: ACETAMINOPHEN TAB 500 MG TAB PO STA (08:50)
[2022-04-28] MEDS ORDERED: TAMSULOSIN 0.4 MG CAP.ER.24H PO STA (08:50)
[2022-04-28] MEDS ORDERED: GABAPENTIN 300 MG CAP PO STA (08:50)
[2022-04-28] MEDS ORDERED: HYDROmorphone 0.5 MG/0.5 ML SYRINGE IVP PRN (09:40)
[2022-04-28] MEDS ORDERED: DEXAMETHASONE SOD PHOSPHATE 4 MG/ML 1 ML VIAL IV ONE (09:40)
[2022-04-28] MEDS ORDERED: LIDOCAINE 1% (10MG/ML) FOR IV START INTRADERMA PRN (09:40)
[2022-04-28] MEDS ORDERED: ONDANSETRON 4 MG/2 ML VIAL IVP ONE (09:40)
[2022-04-28] MEDS: LACTATED RINGERS 1,000 ML IV SCH (14:24)
[2022-04-28 14:25] LABS: Glucose,Whole Blood 137 mg/dL (70-110)
[2022-04-28] MEDS: MELOXICAM 7.5 MG TAB PO SCH (14:25)
[2022-04-28] MEDS ORDERED: MIDAZOLAM 2 MG/2 ML VIAL IV ONE (16:28)
[2022-04-28] MEDS ORDERED: PHENYLEPHRINE-0.9% NACL SYG 1,000 MCG/10 ML SYRINGE ONE (16:39)
[2022-04-28] MEDS ORDERED: ROPIVACAINE 5 MG/ML 30 ML VIAL ONE (16:39)
[2022-04-28] MEDS ORDERED: NEOSTIGMINE 1 MG/ML 10 ML VIAL ONE (16:39)
[2022-04-28] MEDS ORDERED: SUCCINYLCHOLINE CHLORIDE 200 MG/10 ML VIAL IV ONE (16:39)
[2022-04-28] MEDS ORDERED: PROPOFOL 10 MG/ML 20 ML VIAL IV ONE (16:39)
[2022-04-28] MEDS ORDERED: GLYCOPYRROLATE 0.2 MG/ML 2 ML VIAL ONE (16:39)
[2022-04-28] MEDS ORDERED: ONDANSETRON 4 MG/2 ML VIAL ONE (16:39)
[2022-04-28] MEDS ORDERED: LIDOCAINE 2% INJ 20 MG/ML (2 ML VIAL) ONE (16:39)
[2022-04-28] MEDS ORDERED: ROCURONIUM 10 MG/ML (5 ML VIAL) IV ONE (16:39)
[2022-04-28] MEDS ORDERED: DEXAMETHASONE SOD PHOSPHATE 4 MG/ML 1 ML VIAL ONE (16:39)
[2022-04-28] MEDS ORDERED: HYDROmorphone (PF) 1 MG/ML ONE (16:39)
[2022-04-28] MEDS ORDERED: fentaNYL (PF) 50 MCG/ML 2 ML AMP ONE (16:39)
--- NOTE | 2022-04-28 17:17 | P.ANPRN ---
Procedure Note - Anesthesia - Nerve Block Performed Bilateral Erector Spinae Single Time Out Performed: Yes Date of Procedure: 04/28/22 Procedure Start Time: : Procedure Stop Time: 16:39 Location of Patient: PreOp Indication: Acute Post-Operative Pain, Requested by Surgeon Sedation Type: Sedate with meaningful contact maintained Preparation: Sterile Prep, Sterile Dressing Position: Prone Catheter: None Needle Types: Facet Needle Gauge: 20 Ultrasound used to visualize needle placement: Yes Ultrasound used to observe medication spread: Yes Injectate: Other (see comment) (Ropivacaine 0.25% + decadron 5 mg 30 ml per side) Blood Aspirated: No Pain Paresthesia on Injection Noted: No Resistance on Injection: Normal Image Stored and Saved: Yes Events: Uneventful and Well Tolerated
[2022-04-28] MEDS ORDERED: DEXTROSE 50% SYRINGE 50 ML IVP PRN ×2 (19:40)
[2022-04-28] MEDS ORDERED: NALOXONE 0.4 MG/ML 1 ML VIAL IV PRN (19:41)
--- NOTE | 2022-04-28 19:47 | P.OP ---
Date of Procedure: 04/28/22 Description of Procedure: SURGEON: NADER STEWART MD PREOPERATIVE DIAGNOSES: 1. Recurrent incisional ventral hernia 2. Adiposus panniculus with panniculitis 3. Morbid obesity due to excess calories 4. Body mass index 39.8 POSTOPERATIVE DIAGNOSES: 1. Recurrent incisional ventral hernia, 30 x 11 cm 2. Adiposus panniculus with panniculitis 3. Morbid obesity due to excess calories 4. Body mass index 39.8 OPERATION: 1. Abdominal wall reconstruction with myocutaneous bilateral flap advancement 30 x 11 cm 2. Panniculectomy, 8.4 pounds ANESTHESIA: General, regional block ESTIMATED BLOOD LOSS: 350 mL SPECIMENS REMOVED: Pannus 8.4 pounds. COMPLICATIONS: None. CONDITION: Stable. DRAINS: Two #19 Abraham drains below abdominal flap extending through the pubis. OPERATIVE FINDINGS: 1. Pannus weighing 8.4 pounds, excised. 2. Abdominal ventral hernia of 30 x 11 cm along the midline repaired using my contents bilateral flap advancement INDICATIONS: The patient is a 71-year-old male with recurrent abdominal wall hernia including panniculus with panniculitis. Given clinical symptoms, he elected for surgical intervention abdominal wall with reconstruction with panniculectomy. Benefits and risks of the procedure including bleeding, infection, risk of flap failure were described at length. Informed consent was obtained. DESCRIPTION: In the preanesthesia care unit the patient was marked with an indelible marker. Additionally, regional block was placed per anesthesia She had also been given heparin subcutaneously. The patient was brought into the operating room and laid in supine position. After general induction, a Bowden catheter was placed. The abdomen was then prepp ed and draped in standard sterile fashion using ChloraPrep. The skin was prepped as far laterally to the back, inferiorly to the upper thighs and superiorly to above the bilateral breasts. A timeout protocol was confirmed with the surgical team regarding patient's name, procedure to be performed, including preoperative medications. He had received Ancef 3 grams IV antibiotics. Once the time-out protocol was confirmed with the surgical team, the patient was re-marked with indelible marker whereby the midline of the xiphoid to the mons pubis was marked. The anterior/superior iliac spine along the bilateral hips was also marked. Approximately 8 cm above the pubis commissure a transverse incision was made for the inferior portion of the flap. Using a #10 blade, the incision was taken from the midline laterally to above the anterior/superior iliac spine, initially on the left side of the patient and then on the right side of the patient. Electro-Bovie cautery was used to control for hemostasis. The dissection was taken down to the level of the fascia. Landmarks used were the xiphoid process as well as the bilateral costal margins for the superior margin. Care was taken to avoid any creation of dog ears during the dissection. Once hemostasis was checked, a large ventral hernia fascial defect of 11 x 30 cm was identified. During this dissection, the umbilicus was truncated at its fascial insertion. Bilateral myocutaneous flap advancement was performed to close the large defect of 11 x 30 cm using the rectus muscle. After the flaps were raised, the midline was re-marked again from the xiphoid to the pubis commissure. Fascial imbrication was proposed for primary repair and to reinforce the bilateral myocutaneous flap advancement. Starting from the xiphoid process, the rectus muscle was overlapped in the bilateral myocutaneous flap advancement using #2 Ethibond. The ventral hernia defect was completely repaired and closed. Hemostasis was once again checked with electro-Bovie cautery and all defects were addressed. Attention was now brought to closure of the flap. Using stainless steel skin frances, the midline was once again marked of the upper flap as well as the pubic commissure. The patient was placed in a flexed position of approximately 30 degrees at the hips. The pannus was extended inferiorly to the feet. The upper flap was created once the excess skin was excised. Again care was taken to avoid any dog ears along the lateral aspect of the incisions. Once excised, the pannus weighed approximately 4.88 pounds. The upper and lower flaps were reapproximated at the midline and then laterally to the skin with skin frances. Once reapproximated, the skin was closed in layers using 0 Vicryl for the superficial fascial system followed by running 3-0 Monocryl for the deep dermis and finally 4-0 Monocryl in a running subcuticular fashion. Prior to skin closure, two round #19 Abraham drains were placed underneath the flap and brought out just inferior to the incision along the pubis. Drain stitch using 2-0 nylon was placed. Once the incision was closed, bulb suction was attached. Hemostasis was checked. Exofin tape with glue including Optifoam dressing was placed. At the end of the procedure, the needle, sponge and instrument count was verified correct. The patient was then transferred to a hospital bed in a beach chair position. An abdominal binder was placed and marked. The patient was taken to the postanesthesia care unit in stable condition, awake and extubated.
[2022-04-28] MEDS ORDERED: HYDROmorphone 0.5 MG/0.5 ML SYRINGE IVP ONE (19:52)
[2022-04-28] MEDS ORDERED: HYDROmorphone PCA 10 MG/50 ML BAG IV SCH (20:00)
[2022-04-28] MEDS ORDERED: SODIUM CHLORIDE 0.9% 1,000 ML IV ONE (20:02)
[2022-04-28 20:11] LABS: Glucose,Whole Blood 202 mg/dL (70-110)
[2022-04-28] MEDS ORDERED: INSULIN ASPART (NovoLOG) 100 UNIT/ML VIAL SQ ONE (20:30)
[2022-04-28] MEDS ORDERED: MULTIVITAMINS, THERA 1 EACH TAB PO SCH (21:00)
[2022-04-28 22:19] LABS: Glucose,Whole Blood 221 mg/dL (70-110)
[2022-04-28] MEDS: HYDROcodone/APAP 10-325MG 1 EACH TAB PO PRN (22:39)
[2022-04-28] MEDS: TAMSULOSIN 0.4 MG CAP.ER.24H PO SCH (22:39)
[2022-04-28] MEDS: GABAPENTIN 400 MG CAP PO SCH (22:39)
[2022-04-28] MEDS: carvediloL 12.5 MG TAB PO SCH (22:39)
[2022-04-28] MEDS: INSULIN ASPART (NovoLOG) 100 UNIT/ML VIAL SQ SCH (22:40)
[2022-04-28] MEDS: ALBUTEROL NEBULIZED 2.5 MG/3 ML INHALATION SCH (23:30)
[2022-04-28] MEDS: ACETAMINOPHEN IV (For NPO) 1,000 MG in EMPTY BAG 1 BAG IVPB SCH (23:47)
[2022-04-28] MEDS: 0.9% NACL WITH KCL 20 MEQ/L 1,000 ML IV SCH (23:51)
[2022-04-29 02:33] VITALS: BP 105/63
[2022-04-29 02:59] VITALS: RESP 18
[2022-04-29 05:16] LABS: Basophils % (A) 0 %; Eosinophils % (A) 0 %; HCT 36.3 % (39.0-53.0); HGB 12.3 gm/dL (13.0-17.5); Lymphocytes # (A) 0.6 k/uL (1.0-4.8); Lymphocytes % (A) 5 %; MCH 31.7 pg (25.0-35.0); MCHC 33.8 g/dL (31.0-37.0); MCV 93.8 fL (80.0-100.0); Mean Platelet Volume 8.2; Monocytes # (A) 0.4 k/uL (0-1.0); Monocytes % (A) 3 %; Neutrophils # (A) 10.2 k/uL (1.3-7.7); Neutrophils % (A) 91 %; Platelet Count 180 k/uL (150-450); RBC 3.87 m/uL (4.30-5.90); WBC 11.3 k/uL (3.8-10.6)
[2022-04-29 05:25] LABS: Calcium 8.6 mg/dL (8.4-10.2); Magnesium 1.9 mg/dL (1.6-2.3); Potassium 5.5 mmol/L (3.5-5.1)
[2022-04-29] MEDS ORDERED: ceFAZolin 3 GM in SODIUM CHLORIDE 0.9% 100 ML IVPB SCH (06:00)
[2022-04-29 06:05] LABS: Glucose,Whole Blood 208 mg/dL (70-110)
[2022-04-29] MEDS: ACETAMINOPHEN IV (For NPO) 1,000 MG in EMPTY BAG 1 BAG IVPB SCH ×2 (06:12→12:35)
[2022-04-29] MEDS: 0.9% NACL WITH KCL 20 MEQ/L 1,000 ML IV SCH ×2 (06:23→12:37)
[2022-04-29] MEDS: INSULIN ASPART (NovoLOG) 100 UNIT/ML VIAL SQ SCH ×3 (06:27→17:35)
[2022-04-29] MEDS ORDERED: INSULIN DETEMIR (LEVEMIR) 100 UNIT/ML SYR SQ SCH (07:00)
[2022-04-29 07:32] VITALS: TEMP 97.4
[2022-04-29] MEDS: ALBUTEROL NEBULIZED 2.5 MG/3 ML INHALATION SCH ×3 (08:15→16:39)
[2022-04-29] MEDS: MELOXICAM 7.5 MG TAB PO SCH (08:41)
[2022-04-29] MEDS: carvediloL 12.5 MG TAB PO SCH (08:41)
[2022-04-29] MEDS: GABAPENTIN 400 MG CAP PO SCH ×2 (08:41→16:43)
[2022-04-29] MEDS: TAMSULOSIN 0.4 MG CAP.ER.24H PO SCH (08:41)
[2022-04-29] MEDS ORDERED: SODIUM CHLORIDE 0.9% 1,000 ML IV SCH (08:45)
[2022-04-29] MEDS ORDERED: allopurinoL 300 MG TAB PO SCH (09:00)
[2022-04-29] MEDS ORDERED: ENOXAPARIN 40 MG/0.4 ML SYRINGE SQ SCH (09:00)
[2022-04-29] MEDS ORDERED: lisinopriL 20 MG TAB PO SCH (09:00)
[2022-04-29] MEDS ORDERED: MAGNESIUM OXIDE 400 MG TAB PO SCH (09:00)
[2022-04-29 12:27] LABS: Glucose,Whole Blood 221 mg/dL (70-110)
[2022-04-29] MEDS: LACTATED RINGERS 1,000 ML IV SCH (12:33)
[2022-04-29] MEDS ORDERED: SODIUM CHLORIDE 0.9% 1,000 ML IV ONE (13:51)
[2022-04-29] MEDS ORDERED: FUROSEMIDE 10 MG/ML 2 ML VIAL IV ONE (14:15)
[2022-04-29] MEDS: HYDROcodone/APAP 10-325MG 1 EACH TAB PO PRN (15:19)
--- NOTE | 2022-04-29 15:39 | P.DS ---
Providers Date of admission: 04/28/22 12:22 Expected date of discharge: 04/29/22 Attending physician: Marti Heck Consults: 04/28/22 08:49 Consult Physician Routine Consulting Provider: [facility] Consult Reason/Comments: Regional block Do you want consulting provider notified?: Yes Primary care physician: Sebastian Garcia MD Hospital Course: Discharge diagnosis 1. Recurrent incisional ventral hernia, 30 x 11 cm 2. Adiposus panniculus with panniculitis 3. Morbid obesity due to excess calories 4. Body mass index 39.8 5. Hyperkalemia 6. Diabetes mellitus Hospital course The patient is a 71-year-old male with recurrent abdominal wall hernia including panniculus with panniculitis. Patient is status post Abdominal wall reconstruction with myocutaneous bilateral flap advancement and panniculectomy. Patient is tolerating diet. His pain is controlled. He is up and ambulating. He is urinating without difficulty. He is afebrile. He did have an elevated potassium level of 5.8 he is receiving 1 L fluid bolus followed by IV Lasix. His lisinopril, allopurinol and magnesium all been discontinued due to his elevated potassium. Patient has a repeat potassium level at 5:00 today. Depending on potassium results anticipate discharge later this evening. Physician Photocomposition Keyboard Operator note has been reviewed by physician. Signing provider agrees with the documented findings, assessment, and plan of care. Patient Condition at Discharge: Stable Plan - Discharge Summary Discharge Rx Participant: No New Discharge Prescriptions: Continue carvediloL 25 mg PO BID Tamsulosin [Flomax] 0.4 mg PO BID Multivitamins, Thera [Multivitamin (formulary)] 1 tab PO HS Atorvastatin [Lipitor] 40 mg PO HS #30 tablet Gabapentin 800 mg PO TID Hydrocodone/Acetaminophen [Hydrocodone/Acetaminophen 10-300 mg] 1 tab PO TID PRN PRN Reason: Pain Insulin Glargine [Lantus Vial] 16 unit SQ QAM Discontinued allopurinoL [Zyloprim] 300 mg PO DAILY lisinopriL 20 mg PO QAM Magnesium 400 mg PO DAILY Discharge Medication List Tamsulosin [Flomax] 0.4 mg PO BID 08/11/17 [History] carvediloL 25 mg PO BID 08/11/17 [History] Multivitamins, Thera [Multivitamin (formulary)] 1 tab PO HS 08/22/17 [History] Atorvastatin [Lipitor] 40 mg PO HS #30 tablet 09/03/17 [Rx] Gabapentin 800 mg PO TID 06/23/18 [History] Hydrocodone/Acetaminophen [Hydrocodone/Acetaminophen 10-300 mg] 1 tab PO TID PRN 06/23/18 [History] Insulin Glargine [Lantus Vial] 16 unit SQ QAM 01/01/22 [History] Follow [facility]ment(s[facility]Ref[facility] [place] [facility] [place] [facility]22 9:00 am Patient Instructions/Handouts: [facility]-Gill Drain Care (DC), Abdominal Binder (DC), Panniculectomy (DC) Activity/Diet/Wound Care/Special Instructions: Wear abdominal binder at all times No lifting over 4 pounds in 4 weeks You May shower. No bath tub soaks for two weeks Use Tylenol scheduled for the next 24-48 hours for best pain relief. Use ice along incisions for the today to prevent swelling. Keep a log of ANGELO drain output and bring with you to your follow-up appointment Milk/strip drains 2-3 times a day Avoid being around pets Discharge Disposition: HOME SELF-CARE
[2022-04-29 16:33] LABS: Glucose,Whole Blood 187 mg/dL (70-110)
[2022-04-29 16:52] VITALS: PULSE 86
[2022-04-29] MEDS ORDERED: 0.9% NACL WITH KCL 20 MEQ/L 1,000 ML IV SCH (22:46)
== END 2022-04-29 19:00 | disposition home or self-care (01) | DRG 355 ==
LOC: 2ORMAIN 12:22 → 4SSUR 21:56
PROVIDERS: ADMIT Surgery Plastic and Reconstructive Surgery; ATTEND Surgery Plastic and Reconstructive Surgery
PROC: 0WUF07Z Supplement Abdominal Wall with Autologous Tissue Substitute, Open Approach (ICD-10-PCS; 2022-04-28)
PROC: 3E0T3BZ Introduction of Anesthetic Agent into Peripheral Nerves and Plexi, Percutaneous Approach (ICD-10-PCS; 2022-04-28)
PROC: 0HB7XZZ Excision of Abdomen Skin, External Approach (ICD-10-PCS; principal; 2022-04-28 14:30)
DX: K43.2 Incisional hernia without obstruction or gangrene (principal); M79.3 Panniculitis, unspecified; E66.01 Morbid (severe) obesity due to excess calories; E87.5 Hyperkalemia; E11.9 Type 2 diabetes mellitus without complications; Z68.39 Body mass index [BMI] 39.0-39.9, adult; E78.5 Hyperlipidemia, unspecified; H91.91 Unspecified hearing loss, right ear; I10 Essential (primary) hypertension; J44.9 Chronic obstructive pulmonary disease, unspecified; G47.33 Obstructive sleep apnea (adult) (pediatric); N40.0 Benign prostatic hyperplasia without lower urinary tract symptoms; Z79.4 Long term (current) use of insulin; Z79.899 Other long term (current) drug therapy; Z86.73 Personal history of transient ischemic attack (TIA), and cerebral infarction without residual deficits; Z87.891 Personal history of nicotine dependence; Z96.641 Presence of right artificial hip joint; Z96.651 Presence of right artificial knee joint; Z98.49 Cataract extraction status, unspecified eye; Z87.19 Personal history of other diseases of the digestive system; Z98.42 Cataract extraction status, left eye; Z98.41 Cataract extraction status, right eye; Z96.1 Presence of intraocular lens; Z91.040 Latex allergy status; Z91.041 Radiographic dye allergy status; Z88.8 Allergy status to other drugs, medicaments and biological substances
CPT/HCPCS: 64999; 80051; 82310; 82565; 83036; 83735; 84100; 84132; 84520; 85025; 94640; 94760

== ENCOUNTER 2022-04-30 07:21 | Inpatient (IN) | payer MEDICARE ==
[2022-04-30] MEDS ORDERED: SODIUM CHLORIDE 0.9% 1,000 ML IV STA (07:40)
[2022-04-30 07:42] LABS: Glucose,Whole Blood 297 mg/dL (70-110)
[2022-04-30 08:18] LABS: ABG Base Excess -3.9 mmol/L; ABG HCO3 24 mmol/L (21-25); ABG Oxygen Saturation 97.3 % (94-97); ABG PCO2 62 mmHg (35-45); ABG PO2 98 mmHg (83-108); ABG TCO2 26 mmol/L (19-24); Allen Test Performed? Yes
[2022-04-30 08:19] LABS: Albumin 3.2 g/dL (3.5-5.0); Magnesium 2.3 mg/dL (1.6-2.3); Potassium 5.3 mmol/L (3.5-5.1); Total Bilirubin 0.6 mg/dL (0.2-1.3); Total Protein 5.5 g/dL (6.3-8.2)
[2022-04-30 08:21] LABS: Prothrombin Time 10.7 sec (9.0-12.0)
[2022-04-30 08:29] LABS: Basophils % (A) 0 %; Eosinophils % (A) 0 %; HCT 32.5 % (39.0-53.0); HGB 10.4 gm/dL (13.0-17.5); Hypochromasia Slight; Lymphocytes # (A) 0.8 k/uL (1.0-4.8); Lymphocytes % (A) 5 %; MCH 30.6 pg (25.0-35.0); MCHC 32.2 g/dL (31.0-37.0); MCV 95.3 fL (80.0-100.0); Mean Platelet Volume 7.9; Monocytes # (A) 1.5 k/uL (0-1.0); Monocytes % (A) 9 %; Neutrophils # (A) 13.6 k/uL (1.3-7.7); Neutrophils % (A) 84 %; Platelet Count 225 k/uL (150-450); RBC 3.41 m/uL (4.30-5.90); WBC 16.3 k/uL (3.8-10.6)
[2022-04-30 08:29] LABS: Appearance,Urine Clear (Clear); Bilirubin,Urine Negative (Negative); Blood,Urine Negative (Negative); Color,Urine Yellow; Glucose,Urine (UA) Negative (Negative); Hyaline Casts,Urine 4 /lpf (0-2); Ketones,Urine Trace (Negative); Leukocyte Esterase,Urine Trace (Negative); Mucus,Urine Rare /hpf; Nitrite,Urine Negative (Negative); Protein,Urine Negative (Negative); RBC,Urine 2 /hpf (0-5); Specific Gravity,Urine 1.016 (1.001-1.035); Squamous Epithelial Cell,Urine <1 /hpf (0-4); Urobilinogen,Urine <2.0 mg/dL (<2.0); WBC,Urine 3 /hpf (0-5)
--- NOTE | 2022-04-30 08:55 | XR ---
EXAMINATION TYPE: XR chest 1V portable DATE OF EXAM: 04/30/2022 COMPARISON: 08/24/2017 INDICATION: Acute mental status changes, difficulty breathing TECHNIQUE: Single frontal view of the chest is obtained. FINDINGS: The heart size is normal. The pulmonary vasculature is normal. The lungs are clear. IMPRESSION: 1. No acute pulmonary process. Follow-up can be performed as clinically indicated
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
[2022-04-30] MEDS ORDERED: SODIUM CHLORIDE 0.9% 1,000 ML IV ONE ×3 (09:14→21:39)
[2022-04-30] MEDS ORDERED: SODIUM CHLORIDE 0.9% 1,000 ML IV SCH (09:15)
[2022-04-30] MEDS ORDERED: NALOXONE 0.4 MG/ML 1 ML VIAL IV PRN (09:28)
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
[2022-04-30] MEDS ORDERED: SODIUM CHLORIDE 0.45% 1,000 ML with SODIUM BICARB (1 MEQ/ML) 50 ML IV SCH ×2 (10:30)
[2022-04-30] MEDS ORDERED: HEPARIN SODIUM 1,000 UN/ML (10ML VL) IV PRN (10:31)
[2022-04-30] MEDS ORDERED: HEPARIN SODIUM 1,000 UN/ML (10ML VL) IV ONE (10:31)
[2022-04-30] MEDS ORDERED: HEPARIN SOD,PORK IN 0.45% NACL 25,000 UNIT in 0.45% NACL 1 250ML.BAG IV SCH (10:45)
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
--- NOTE | 2022-04-30 14:47 | CONS ---
CONSULTATION REASON FOR CONSULTATION: Elevated troponins. HISTORY OF PRESENT ILLNESS: This is a 71-year-old morbidly obese gentleman with recurrent ventral hernia, previous bariatric surgery, who underwent hernia repair on the , and was discharged yesterday. He came back to the hospital because he felt that the drains in his surgical area were not working very well. He went to bed, did not use a CPAP, and woke up with altered mentation, and his family brought him to the hospital. He apparently did not wear the CPAP machine and also took his pain medications including [place] and gabapentin. This morning, he is on a BiPAP. He does not communicate well. His troponin is elevated, but this is probably related to hypoxia under the circumstances and does not represent primary myocardial injury. He also has a significant increase in creatinine suggestive of acute kidney injury with volume depletion/dehydration. He was initially in sinus rhythm on the EKG, but while I was examining him, he was in atrial fibrillation with IVCD and moderate ventricular rate. His white count is also elevated up to 16.3. His hemoglobin is 10.4. PAST MEDICAL HISTORY: 1. The patient has what seems to be obstructive sleep apnea, currently with hypercapnic respiratory failure type picture with acidosis. 2. Acute kidney injury secondary to volume depletion/dehydration. 3. New-onset atrial fibrillation. 4. History of previous CVA. 5. Type 2 diabetes mellitus. 6. History of orthopedic surgery. MEDICATIONS AT HOME: Include: 1. Carvedilol. 2. Flomax. 3. Insulin for diabetes. 4. Gabapentin. 5. [place]. 6. Lipitor. PHYSICAL EXAMINATION: VITAL SIGNS: Blood pressure is 108/70. Pulse rate is 90 to 100, irregular. HEENT: Limited exam was performed. HEART: S1 and S2 heard with a short systolic murmur, irregularity in rhythm. LUNGS: Reveal diminished bilateral air entry. ABDOMEN: Distended. Not examined. EXTREMITIES: Lower extremities reveal diminished pulses. CENTRAL NERVOUS SYSTEM: Limited exam. No focal deficits. IMPRESSION: 1. New-onset atrial fibrillation. 2. Elevated troponin, not suggestive of primary myocardial injury, probably related to hypoxia. 3. Hypercapnic respiratory failure, on BiPAP. 4. History of known obstructive sleep apnea. 5. Type 2 diabetes. 6. Obesity. 7. Status post hernia repair 48 hours ago. RECOMMENDATIONS: I am recommending intravenous heparin after checking with the surgeon, Dr. Heck. I would also add bicarb to the normal saline drip. Seek Nephrology and Pulmonary input. Obtain echocardiogram as well. I discussed my thoughts in detail with the patient's family. I could not communicate directly with the patient. Prognosis remains guarded. MMODL / IJN: [id number] /
--- NOTE | 2022-04-30 14:51 | US ---
EXAMINATION TYPE: US kidneys/renal and bladder DATE OF EXAM: 04/30/2022 COMPARISON: CT, US CLINICAL HISTORY: juan j. JUAN J EXAM MEASUREMENTS: Right Kidney: 13.3 x 7.2 x 6.0 cm Left Kidney: 8.9 x 4.0 x 3.9 cm Exam is extremely limited due to body habitus and great amount of overlying bowel gas. Exam done p ortable. Right Kidney: Appears enlarged. Hyperechoic focus seen lower pole: 0.5 x 0.4 x 0.2 cm. Left Kidney: Extremely limited visibility. Appears small in size. Difficult to properly evaluate. Bladder: Not seen Bilateral Jets seen: No IMPRESSION: 1. Limited exam secondary to patient body habitus and overlapping bowel. 2. No evidence for obstructive uropathy. 3. Nonobstructing right renal calculus versus atherosclerosis when comparing to prior CT. 4. Atrophic appearing left kidney likely secondary to chronic kidney disease. No unchanged from 10/28 CT.
[2022-04-30] MEDS: SODIUM CHLORIDE 0.9% 1,000 ML IV SCH ×2 (17:12→23:16)
[2022-04-30 17:42] LABS: Glucose,Whole Blood 196 mg/dL (70-110)
[2022-04-30 20:57] LABS: Glucose,Whole Blood 219 mg/dL (70-110)
[2022-04-30] MEDS ORDERED: PIPERACILLIN-TAZOBACTAM 3.375 GM in SODIUM CHLORIDE 0.9% 100 ML IVPB STA (21:37)
[2022-04-30] MEDS: INSULIN ASPART (NovoLOG) 100 UNIT/ML VIAL SQ SCH (22:31)
[2022-05-01 00:25] LABS: HCT 29.4 % (39.0-53.0); HGB 9.7 gm/dL (13.0-17.5); Hypochromasia Moderate; MCH 31.7 pg (25.0-35.0); MCV 96.3 fL (80.0-100.0); Mean Platelet Volume 7.6; Platelet Count 180 k/uL (150-450); RBC 3.06 m/uL (4.30-5.90); RDW 14.4 % (11.5-15.5); WBC 11.4 k/uL (3.8-10.6)
[2022-05-01 00:32] LABS: Glucose,Whole Blood 174 mg/dL (70-110)
--- NOTE | 2022-05-01 00:56 | CT ---
EXAMINATION TYPE: CT abdomen wo con DATE OF EXAM: 05/01/2022 COMPARISON: 10/28/2021 HISTORY: abd distention CT DLP: 2099.9 mGycm Automated exposure control for dose reduction was used. There is some patchy atelectasis and interstitial infiltrate right lung base. Heart size is normal. N o pericardial effusion. Liver is intact. Spleen is intact. There is no pancreatic mass. There are chang cified gallstones. The stomach is intact. There is no adrenal mass. Left kidney is small and consistent with atrophy. There are bilateral renal calculi up to 5 mm. No hydronephrosis. There is right hip prosthesis. Ureters are not dilated. There is a Bowden catheter in the urinary bladder. Bladder appears empty. There is metal artifact from the hip prosthesis. There are fat-containing inguinal hernias. There is some mild wall thickening of the sigmoid colon. There is some drainage tubing over the anterior abdomen with subcutaneous fluid and ai r bubbles. The lumbar vertebrae have normal alignment. There is vacuum disc at L5-S1. No evidence of free air. No ascites. IMPRESSION: Subcutaneous air bubbles and fluid with drainage tubes over the anterior abdomen. There is reduction of the subcutaneous cystic mass over the anterior lower abdomen compared to old exam.. There is possi ble wall thickening of the sigmoid colon that could be some nonspecific colitis. There is some infiltrate or atelectasis right lung base which is new compared to old exam.
[2022-05-01 01:10] LABS: Glucose,Whole Blood 164 mg/dL (70-110)
[2022-05-01 06:23] LABS: Basophils % (A) 0 %; Eosinophils # (A) 0.1 k/uL (0-0.7); Eosinophils % (A) 1 %; HCT 30.6 % (39.0-53.0); HGB 9.7 gm/dL (13.0-17.5); Hypochromasia Marked; Lymphocytes # (A) 0.8 k/uL (1.0-4.8); Lymphocytes % (A) 8 %; MCH 31.5 pg (25.0-35.0); MCHC 31.8 g/dL (31.0-37.0); MCV 98.9 fL (80.0-100.0); Mean Platelet Volume 7.9; Monocytes # (A) 0.8 k/uL (0-1.0); Monocytes % (A) 8 %; Neutrophils # (A) 7.6 k/uL (1.3-7.7); Neutrophils % (A) 81 %; Platelet Count 153 k/uL (150-450); RBC 3.09 m/uL (4.30-5.90); RDW 14.4 % (11.5-15.5); WBC 9.4 k/uL (3.8-10.6)
[2022-05-01 06:37] LABS: Glucose,Whole Blood 155 mg/dL (70-110)
[2022-05-01] MEDS: INSULIN ASPART (NovoLOG) 100 UNIT/ML VIAL SQ SCH ×4 (06:40→21:15)
[2022-05-01 06:43] LABS: Calcium 7.5 mg/dL (8.4-10.2); Magnesium 2.2 mg/dL (1.6-2.3); Potassium 4.9 mmol/L (3.5-5.1)
[2022-05-01] MEDS: PIPERACILLIN-TAZOBACTAM 3.375 GM in SODIUM CHLORIDE 0.9% 100 ML IVPB SCH ×3 (06:57→21:16)
[2022-05-01] MEDS ORDERED: INSULIN ASPART (NovoLOG) 100 UNIT/ML VIAL SQ SCH (07:30)
[2022-05-01] MEDS: NOREPINEPHRINE 4 MG in SODIUM CHLORIDE 0.9% 250 ML IV SCH (07:57)
[2022-05-01] MEDS: SODIUM CHLORIDE 0.9% 1,000 ML IV SCH ×2 (07:58→16:09)
--- NOTE | 2022-05-01 08:48 | CA ---
Transthoracic Echo Report Name: Gene Zuleta Age: 71 Gender: M : 1950 Exam Date: 04/30/2022 13:53 Exam Location: [facility] Ht (in): 62 Wt (lb): 235 Ordering Physician: Concepción Erickson MD ([id number]) Attending/Referring Phys: Contact Lens Polisher Meli Mahan RDCS Procedure CPT: Indications: chf Cardiac Hx: Technical Quality: Technically difficult study Contrast 1: Total Dose (mL): Contrast 2: Total Dose (mL): MEASUREMENTS (Male / Female) Normal Values 2D ECHO LV Diastolic Diameter PLAX 4.1 cm 4.2 - 5.9 / 3.9 - 5.3 cm LV Systolic Diameter PLAX 4.3 cm IVS Diastolic Thickness 1.4 cm 0.6 - 1.0 / 0.6 - 0.9 cm LVPW Diastolic Thickness 1.6 cm 0.6 - 1.0 / 0.6 - 0.9 cm LV Relative Wall Thickness 0.7 RV Internal Dim ED PLAX 2.8 cm FINDINGS Left Ventricle Left ventricular ejection fraction is estimated at 55-60%.left ventricular cavity size normal. Left ventricular hypertrophy. Right Ventricle Normal right ventricular size and function. Right Atrium Right atrium not well visualized. Left Atrium Normal left atrial size. Mitral Valve Structurally normal mitral valve. Mild mitral regurgitation. Aortic Valve Aortic valve not well visualized. Tricuspid Valve Tricuspid valve not well visualized. Pulmonic Valve Pulmonic valve not well visualized. Pericardium Echo free space anterior to the right ventricle likely represents a fat pad. Aorta Aortic root and proximal ascending aorta not well visualized. CONCLUSIONS Technically difficult study. 1. Normal ventricle size and systolic function 2. Valvular structures were not well visualized. Previewed by: Dr. Kenrick Cardoza MD (Electronically Signed) Final Date: 01 May 2022 08:47
[2022-05-01] MEDS ORDERED: IPRATROPIUM-ALBUTEROL 3 ML NEB INHALATION PRN (09:43)
--- NOTE | 2022-05-01 10:31 | P.PN ---
Subjective Patient is seen in follow-up for acute kidney injury. Renal function stable. Nonoliguric. Urine output 70-80 mL an hour. Receiving normal saline. Await. On 4 L nasal cannula. Blood pressure stable. Family present at bedside. Vital signs are stable. General: No acute distress. HEENT: Head exam is unremarkable. On nasal cannula. LUNGS: Breath sounds decreased. HEART: Rate and Rhythm are regular. ABDOMEN: Soft, no tenderness. EXTREMITITES: Trace edema. Objective - Vital Signs Vital signs: Vital Signs Temp 98.0 F 05/01/22 08:00 Pulse 98 05/01/22 10:00 Resp 27 H 05/01/22 10:00 BP 126/60 05/01/22 10:00 Pulse Ox 97 05/01/22 10:00 FiO2 35 05/01/22 08:00 Intake & Output 04/30/22 05/01/22 05/01/22 18:59 06:59 18:59 Intake Total 675 450 Output Total 190 640 460 Balance -190 35 -10 Weight 106.594 kg 106.6 kg Intake: IV 325 Sodium Chloride 0.9% 1, 325 000 ml @ 75 mls/hr IV . [id number] WILLIAM Rx#:[id number] Intake, IV Titration 675 125 Amount Sodium Chloride 0.9% 1, 625 125 000 ml @ 75 mls/hr IV . [id number] WILLIAM Rx#:[id number] ceFAZolin 2 gm In Sodium 50 Chloride 0.9% 50 ml @ 100 mls/hr IVPB Q8H WILLIAM Rx#: [id number] Output: Drainage 50 40 50 Left Groin 50 40 50 Urine 140 600 410 Uretheral (Bowden) 40 Other: Voiding Method Indwelling Catheter Indwelling Catheter - Labs CBC & Chem 7: 05/01/22 05:26 05/01/22 05:26 Labs: Abnormal Lab Results - Last 24 Hours (Table) 04/30/22 04/30/22 04/30/22 Range/Units 07:41 11:31 14:07 WBC (3.8-10.6) k/uL RBC (4.30-5.90) m/uL Hgb (13.0-17.5) gm/dL Hct (39.0-53.0) % Lymphocytes # (1.0-4.8) k/uL Chloride (98-107) mmol/L Carbon Dioxide (22-30) mmol/L BUN (9-20) mg/dL Creatinine (0.66-1.25) mg/dL Glucose (74-99) mg/dL POC Glucose (mg/dL) (70-110) mg/dL Calcium (8.4-10.2) mg/dL Troponin I 0.051 H* 0.045 H* (0.000-0.034) ng/mL Procalcitonin 0.74 H (0.02-0.09) ng/mL 04/30/22 04/30/22 04/30/22 Range/Units 17:38 20:55 23:23 WBC 11.4 H (3.8-10.6) k/uL RBC 3.06 L (4.30-5.90) m/uL Hgb 9.7 L (13.0-17.5) gm/dL Hct 29.4 L (39.0-53.0) % Lymphocytes # (1.0-4.8) k/uL Chloride (98-107) mmol/L Carbon Dioxide (22-30) mmol/L BUN (9-20) mg/dL Creatinine (0.66-1.25) mg/dL Glucose (74-99) mg/dL POC Glucose (mg/dL) 196 H 219 H (70-110) mg/dL Calcium (8.4-10.2) mg/dL Troponin I (0.000-0.034) ng/mL Procalcitonin (0.02-0.09) ng/mL 05/01/22 05/01/22 05/01/22 Range/Units 00:31 01:09 05:26 WBC (3.8-10.6) k/uL RBC 3.09 L (4.30-5.90) m/uL Hgb 9.7 L (13.0-17.5) gm/dL Hct 30.6 L (39.0-53.0) % Lymphocytes # 0.8 L (1.0-4.8) k/uL Chloride (98-107) mmol/L Carbon Dioxide (22-30) mmol/L BUN (9-20) mg/dL Creatinine (0.66-1.25) mg/dL Glucose (74-99) mg/dL POC Glucose (mg/dL) 174 H 164 H (70-110) mg/dL Calcium (8.4-10.2) mg/dL Troponin I (0.000-0.034) ng/mL Procalcitonin (0.02-0.09) ng/mL 05/01/22 05/01/22 Range/Units 05:26 06:36 WBC (3.8-10.6) k/uL RBC (4.30-5.90) m/uL Hgb (13.0-17.5) gm/dL Hct (39.0-53.0) % Lymphocytes # (1.0-4.8) k/uL Chloride 114 H (98-107) mmol/L Carbon Dioxide 19 L (22-30) mmol/L BUN 84 H (9-20) mg/dL Creatinine 2.70 H (0.66-1.25) mg/dL Glucose 153 H (74-99) mg/dL POC Glucose (mg/dL) 155 H (70-110) mg/dL Calcium 7.5 L (8.4-10.2) mg/dL Troponin I (0.000-0.034) ng/mL Procalcitonin (0.02-0.09) ng/mL Microbiology - Last 24 Hours (Table) 04/30/22 08:00 Blood Culture - Preliminary Blood No Growth after 24 hours 04/30/22 07:45 Blood Culture Gram Stain - Preliminary Blood 04/30/22 07:45 Blood Culture - Final Blood Assessment and Plan Plan: Assessment: 1. Acute kidney injury secondary to hemodynamic ATN. Baseline creatinine near 1 and was 2.77 on admission - 2.7 today. Nonoliguric. No hydronephrosis noted on CAT scan. Left kidney smaller in size. UA benign. 2. Status post abdominal wall reconstruction and panniculectomy on 04/28/2022. 3. Hyperkalemia secondary to acute kidney injury and hyperglycemia. Resolved. 4. Diabetes mellitus. 5. Metabolic acidosis secondary to acute kidney injury and IV fluids. 6. Gram negative bacteremia on abx. ID consulted. Plan: Decrease rate of normal saline to 75 mL an hour. Avoid nephrotoxins. Continue to monitor renal function and urine output. Add po bicarb.
[2022-05-01] MEDS: IPRATROPIUM-ALBUTEROL 3 ML NEB INHALATION SCH ×3 (11:13→19:37)
[2022-05-01] MEDS: SODIUM BICARBONATE TAB 650 MG TAB PO SCH ×2 (11:17→21:16)
[2022-05-01 11:51] LABS: Glucose,Whole Blood 208 mg/dL (70-110)
--- NOTE | 2022-05-01 12:31 | P.PN ---
Subjective Progress Note Date: 05/01/22 Principal diagnosis: Respiratory failure. Pulmonary consult dated 04/30/2022. 71-year-old male with history of COPD, diabetes, and sleep apnea, who presented to the emergency department on April 30, 720 in the morning, with mental status changes, and we. The patient was discharged from [facility], on the . He had surgery by Dr. Loredo on April 28. The patient came back into the hospital, at 6:00 this morning. He apparently was found to be profoundly weak at home, according to his , with diarrhea, lethargy, somnolence, and inability to care for himself. The patient is seen in the emergency department, and is currently on BiPAP, with settings of 10/5 and 35%. The patient's getting saline at 150 mL an hour. His primary care provider is Dr. Garcia, and he also sees my partner, Dr. Kraus for COPD. He does use oxygen at home, and also has a home nebulizer machine. On April 28, the patient underwent an abdominal wall reconstruction with myocutaneous bilateral flap advancement, and a panniculectomy. The patient was anxious to be discharged from the hospital, and petitioned the surgeon, and was discharged on April 29. He came back in later that day, at 7 PM, but after waiting for 4 or 5 hours, decided to go home. They came back into the hospital on the morning of the , at 6 AM. White count 16.3, hemoglobin 10.4, hematocrit 32.5, and platelet count 225,000. Blood gases show pO2 of 98, pCO2 of 62, and a pH of 7.20. That was on 35% oxygen. Sodium 139, potassium 5.3, chlorides 107, CO2 25, BUN 75, and creatinine 2.77. Troponin was 0.044 and 0.051. N-terminal proBNP was 593. Progress note dated 05/01/2022. 71-year-old male with history of COPD, diabetes, and sleep apnea, who was seen in the emergency department yesterday. He apparently was admitted with mental status changes. The patient was discharged from [facility] on April 29, after having a surgery done by Dr. Loredo, the day prior. The patient was admitted to the floor, and then was moved to the intensive care unit, overnight, because of worsening respiratory distress, and low blood pressure. I gave the order to start him on some norepinephrine, but the patient never needed to be started on norepinephrine. Currently, he's on 4 L nasal cannula. He is awake and alert. He did use BiPAP throughout the night, with settings of 10/5 and 35%. Today's postop day #3. The blood cultures showed evidence of gram-negative bacilli. They have yet to be identified. He is currently on Zosyn. White count 9.4, hemoglobin 9.7, hematocrit 30.6, and platelet count 253,000. Sodium 141, potassium 4.9, chlorides 114, CO2 19, BUN 84, and creatinine 2.70. Cortisol level was 24. Blood cultures are showing evidence of Pseudomonas aeruginosa. Sensitivities are currently pending. Objective - Vital Signs Vital signs: Vital Signs Temp 98.0 F 05/01/22 12:00 Pulse 107 H 05/01/22 12:00 Resp 17 05/01/22 12:00 BP 130/69 05/01/22 12:00 Pulse Ox 93 L 05/01/22 12:00 FiO2 35 05/01/22 08:00 Intake & Output 04/30/22 05/01/22 05/01/22 18:59 06:59 18:59 Intake Total 675 600 Output Total 190 640 730 Balance -190 35 -130 Weight 106.594 kg 106.6 kg Intake: IV 475 Sodium Chloride 0.9% 1, 475 000 ml @ 75 mls/hr IV . [id number] WILLIAM Rx#:[id number] Intake, IV Titration 675 125 Amount Sodium Chloride 0.9% 1, 625 125 000 ml @ 75 mls/hr IV . [id number] WILLIAM Rx#:[id number] ceFAZolin 2 gm In Sodium 50 Chloride 0.9% 50 ml @ 100 mls/hr IVPB Q8H WILLIAM Rx#: [id number] Output: Drainage 50 40 100 Left Groin 50 40 100 Urine 140 600 630 Uretheral (Bowden) 40 Other: Voiding Method Indwelling Catheter Indwelling Catheter - Exam No acute distress, awake and alert, currently on 4 L of oxygen. HEENT examination is grossly unremarkable. Neck supple. Full range of motion. No adenopathy thyromegaly or neck vein distention. Cardiovascular examination reveals regular rhythm rate. S1-S2 normal. No S3 or S4. No discernible murmur noted. Heart sounds are distant. Heart rate 100 bpm. Lungs reveal scattered bilateral rhonchi. No wheezes. No crackles. Breath sounds are equal bilaterally. Saturations are 94% on 4 L of oxygen. Abdomen soft, without bowel sounds. Abdomen obese. Drains are noted at the lower portion of the abdomen. Extremities are intact. No cyanosis or clubbing. Trace edema noted. Skin is without rash or lesion. Neurologic examination reveals the patient to be awake and alert. - Labs CBC & Chem 7: 05/01/22 05:26 05/01/22 05:26 Labs: Abnormal Lab Results - Last 24 Hours (Table) 04/30/22 04/30/22 04/30/22 Range/Units 07:41 11:31 14:07 WBC (3.8-10.6) k/uL RBC (4.30-5.90) m/uL Hgb (13.0-17.5) gm/dL Hct (39.0-53.0) % Lymphocytes # (1.0-4.8) k/uL Chloride (98-107) mmol/L Carbon Dioxide (22-30) mmol/L BUN (9-20) mg/dL Creatinine (0.66-1.25) mg/dL Glucose (74-99) mg/dL POC Glucose (mg/dL) (70-110) mg/dL Calcium (8.4-10.2) mg/dL Troponin I 0.051 H* 0.045 H* (0.000-0.034) ng/mL Procalcitonin 0.74 H (0.02-0.09) ng/mL 04/30/22 04/30/22 04/30/22 Range/Units 17:38 20:55 23:23 WBC 11.4 H (3.8-10.6) k/uL RBC 3.06 L (4.30-5.90) m/uL Hgb 9.7 L (13.0-17.5) gm/dL Hct 29.4 L (39.0-53.0) % Lymphocytes # (1.0-4.8) k/uL Chloride (98-107) mmol/L Carbon Dioxide (22-30) mmol/L BUN (9-20) mg/dL Creatinine (0.66-1.25) mg/dL Glucose (74-99) mg/dL POC Glucose (mg/dL) 196 H 219 H (70-110) mg/dL Calcium (8.4-10.2) mg/dL Troponin I (0.000-0.034) ng/mL Procalcitonin (0.02-0.09) ng/mL 05/01/22 05/01/22 05/01/22 Range/Units 00:31 01:09 05:26 WBC (3.8-10.6) k/uL RBC 3.09 L (4.30-5.90) m/uL Hgb 9.7 L (13.0-17.5) gm/dL Hct 30.6 L (39.0-53.0) % Lymphocytes # 0.8 L (1.0-4.8) k/uL Chloride (98-107) mmol/L Carbon Dioxide (22-30) mmol/L BUN (9-20) mg/dL Creatinine (0.66-1.25) mg/dL Glucose (74-99) mg/dL POC Glucose (mg/dL) 174 H 164 H (70-110) mg/dL Calcium (8.4-10.2) mg/dL Troponin I (0.000-0.034) ng/mL Procalcitonin (0.02-0.09) ng/mL 05/01/22 05/01/22 05/01/22 Range/Units 05:26 06:36 11:49 WBC (3.8-10.6) k/uL RBC (4.30-5.90) m/uL Hgb (13.0-17.5) gm/dL Hct (39.0-53.0) % Lymphocytes # (1.0-4.8) k/uL Chloride 114 H (98-107) mmol/L Carbon Dioxide 19 L (22-30) mmol/L BUN 84 H (9-20) mg/dL Creatinine 2.70 H (0.66-1.25) mg/dL Glucose 153 H (74-99) mg/dL POC Glucose (mg/dL) 155 H 208 H (70-110) mg/dL Calcium 7.5 L (8.4-10.2) mg/dL Troponin I (0.000-0.034) ng/mL Procalcitonin (0.02-0.09) ng/mL Microbiology - Last 24 Hours (Table) 04/30/22 07:45 Blood Culture Gram Stain - Preliminary Blood Blood Culture - Preliminary Pseudomonas aeruginosa 04/30/22 08:00 Blood Culture - Preliminary Blood No Growth after 24 hours 04/30/22 07:45 Blood Culture - Final Blood Assessment and Plan Assessment: Postop day #3, status post abdominal wall reconstruction with myocutaneous bilateral flap advancement, and panniculectomy. 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 Rule out non-ST segment elevation myocardial infarction. Pseudomonas aeruginosa bacteremia. History of COPD. Obesity. History of diabetes mellitus. History of sleep apnea syndrome. History of CVA. History of hyperlipidemia. History of hypertension. History of osteoarthritis. History of BPH. Plan: Plan dated 04/30/2022. The patient's blood gases are typical of somebody with alveolar hypoventilation from excess narcotics. The patient does use hydrocodone at home and may have taken too many. His states that she is one who gives him his medication. Patient has been seen by the surgeon. I saw the patient down in the emergency department. Labs, x-rays, and medications are reviewed. The patient be admitted to the monitored floor. Cardiology should be asked to see the patient. Additional recommendations and suggestions are forthcoming. Prognosis is guarded. The patient is a DO NOT RESUSCITATE patient. Plan dated 05/01/2022. The patient is doing much better today than he was yesterday. He is much more awake and alert. He never required norepinephrine for blood pressure support. The patient's currently on blood cultures were positive for pseudomonas aeruginosa. The patient remains on Zosyn. Additional recommendations and suggestions are forthcoming. We will await the sensitivities. Labs, x-rays, and medications are reviewed. Prognosis is guarded. The patient is a DO NOT RESUSCITATE patient. Time with Patient: Greater than 30
--- NOTE | 2022-05-01 14:58 | P.PN ---
Subjective Progress Note Date: 05/01/22 CHIEF COMPLAINT: Altered mental status HISTORY OF PRESENT ILLNESS: Patient currently in the ICU. He is currently off of BiPAP and on 4 L nasal cannula. Afebrile. Mildly tachycardic. His pain is controlled. He denies any nausea or vomiting. He is tolerating regular diet. He is followed by multiple consultants. WBC is 9.4 Hgb 9.7 platelets 153 sodium is 141 potassium 4.9 creatinine 2.70 cortisol 20. One positive blood culture with Pseudomonas. Patient never did require to be placed on Levophed. He reports that he is on nebulizer treatments at home. Computed tomography scan abdomen and pelvis showing subcutaneous air bubbles and fluid with drainage tubes over the anterior abdomen. There is reduction of the subcutaneous cystic mass over the anterior lower abdomen compared to old exam. There is possible wall thickening of the sigmoid colon that could be some nonspecific colitis. There is some infiltrate or atelectasis right lung base which is new compared to old exam. Abdominal ultrasound limited secondary to her area to patient's body habitus no evidence for obstructive uropathy. Nonobstructing right renal calculus. Atrophic appearing left kidney likely secondary to chronic kidney disease PHYSICAL EXAM: VITAL SIGNS: Reviewed GENERAL: Well-developed in no acute distress. HEENT: No sclera icterus. Extraocular movements grossly intact. Moist buccal mucosa. Head is atraumatic, normocephalic. Hears conversational speech. No nasal drainage. NECK: Supple without lymphadenopathy. CHEST: Non-labored respirations and equal bilateral excursions. CARDIOVASCULAR: Palpable 2+ radial pulses. ABDOMEN: Soft. Nondistended. Abdominal binder in place. 2 ANGELO drains with sanguinous output. 50 mL output through the left drain and minimal output through the right. MUSCULOSKELETAL: No clubbing or cyanosis. NEUROLOGIC: No focal or lateralizing signs. Cranial nerves II through XII grossly intact. PSYCH: Appropriate affect. Alert and oriented to person, place and time. SKIN: Well perfused. Good skin turgor. ASSESSMENT: 1. Postop day #3 status post abdominal wall reconstruction with myocutaneous bilateral flap advancement and panniculectomy 2. Alveolar hypoventilation and possibly related to excessive narcotics 3. Pseudomonas bacteremia 4. Acute kidney injury secondary to ATN 5. Hyperkalemia resolved 6. New onset atrial fibrillation and dilated by cardiology 7. Elevated troponin likely due to hypoxia per cardiology 8. History of obstructive sleep apnea 9. Diabetes mellitus 10. Metabolic encephalopathy resolved 11. Atelectasis PLAN: -Continue ICU management -Continue supportive care -Avoid anticoagulation -Continue regular diet -Encourage incentive spirometer use -Resume home medications -Hold off on restarting Lipitor and multivitamin due to increased bleeding risk -Further recommendations forthcoming per surgeon Physician [facility] note has been reviewed by physician. Signing provider agrees with the documented findings, assessment, and plan of care. Objective - Vital Signs Vital signs: Vital Signs Temp 98.0 F 05/01/22 08:00 Pulse 105 H 05/01/22 11:27 Resp 29 H 05/01/22 11:00 BP 122/69 05/01/22 11:00 Pulse Ox 97 05/01/22 11:00 FiO2 35 05/01/22 08:00 Intake & Output 04/30/22 05/01/22 05/01/22 18:59 06:59 18:59 Intake Total 675 525 Output Total 190 640 635 Balance -190 35 -110 Weight 106.594 kg 106.6 kg Intake: IV 400 Sodium Chloride 0.9% 1, 400 000 ml @ 75 mls/hr IV . [id number] WILLIAM Rx#:[id number] Intake, IV Titration 675 125 Amount Sodium Chloride 0.9% 1, 625 125 000 ml @ 75 mls/hr IV . [id number] WILLIAM Rx#:[id number] ceFAZolin 2 gm In Sodium 50 Chloride 0.9% 50 ml @ 100 mls/hr IVPB Q8H WILLIAM Rx#: [id number] Output: Drainage 50 40 50 Left Groin 50 40 50 Urine 140 600 585 Uretheral (Bowden) 40 Other: Voiding Method Indwelling Catheter Indwelling Catheter - Labs CBC & Chem 7: 05/01/22 05:26 05/01/22 05:26 Labs: Abnormal Lab Results - Last 24 Hours (Table) 04/30/22 04/30/22 04/30/22 Range/Units 07:41 11:31 14:07 WBC (3.8-10.6) k/uL RBC (4.30-5.90) m/uL Hgb (13.0-17.5) gm/dL Hct (39.0-53.0) % Lymphocytes # (1.0-4.8) k/uL Chloride (98-107) mmol/L Carbon Dioxide (22-30) mmol/L BUN (9-20) mg/dL Creatinine (0.66-1.25) mg/dL Glucose (74-99) mg/dL POC Glucose (mg/dL) (70-110) mg/dL Calcium (8.4-10.2) mg/dL Troponin I 0.051 H* 0.045 H* (0.000-0.034) ng/mL Procalcitonin 0.74 H (0.02-0.09) ng/mL 04/30/22 04/30/22 04/30/22 Range/Units 17:38 20:55 23:23 WBC 11.4 H (3.8-10.6) k/uL RBC 3.06 L (4.30-5.90) m/uL Hgb 9.7 L (13.0-17.5) gm/dL Hct 29.4 L (39.0-53.0) % Lymphocytes # (1.0-4.8) k/uL Chloride (98-107) mmol/L Carbon Dioxide (22-30) mmol/L BUN (9-20) mg/dL Creatinine (0.66-1.25) mg/dL Glucose (74-99) mg/dL POC Glucose (mg/dL) 196 H 219 H (70-110) mg/dL Calcium (8.4-10.2) mg/dL Troponin I (0.000-0.034) ng/mL Procalcitonin (0.02-0.09) ng/mL 05/01/22 05/01/22 05/01/22 Range/Units 00:31 01:09 05:26 WBC (3.8-10.6) k/uL RBC 3.09 L (4.30-5.90) m/uL Hgb 9.7 L (13.0-17.5) gm/dL Hct 30.6 L (39.0-53.0) % Lymphocytes # 0.8 L (1.0-4.8) k/uL Chloride (98-107) mmol/L Carbon Dioxide (22-30) mmol/L BUN (9-20) mg/dL Creatinine (0.66-1.25) mg/dL Glucose (74-99) mg/dL POC Glucose (mg/dL) 174 H 164 H (70-110) mg/dL Calcium (8.4-10.2) mg/dL Troponin I (0.000-0.034) ng/mL Procalcitonin (0.02-0.09) ng/mL 05/01/22 05/01/22 Range/Units 05:26 06:36 WBC (3.8-10.6) k/uL RBC (4.30-5.90) m/uL Hgb (13.0-17.5) gm/dL Hct (39.0-53.0) % Lymphocytes # (1.0-4.8) k/uL Chloride 114 H (98-107) mmol/L Carbon Dioxide 19 L (22-30) mmol/L BUN 84 H (9-20) mg/dL Creatinine 2.70 H (0.66-1.25) mg/dL Glucose 153 H (74-99) mg/dL POC Glucose (mg/dL) 155 H (70-110) mg/dL Calcium 7.5 L (8.4-10.2) mg/dL Troponin I (0.000-0.034) ng/mL Procalcitonin (0.02-0.09) ng/mL Microbiology - Last 24 Hours (Table) 04/30/22 07:45 Blood Culture Gram Stain - Preliminary Blood Blood Culture - Preliminary Pseudomonas aeruginosa 04/30/22 08:00 Blood Culture - Preliminary Blood No Growth after 24 hours 04/30/22 07:45 Blood Culture - Final Blood
--- NOTE | 2022-05-01 15:58 | PN ---
PROGRESS NOTE SUBJECTIVE: Mr. Zuleta was seen by me yesterday when he came in with hypercapnia and was quite acidotic. I suggested that we heparinize him because he was in atrial fibrillation, but apparently, Dr. Heck felt heparin is not a good idea given his oozing and recent surgery. However, he became worse and was transferred to the ICU. He is currently on BiPAP. He is hemodynamically reasonably stable and making some urine, which is encouraging. He is also in sinus rhythm. His echo revealed preserved systolic function. His acidosis appears to have improved. He is doing better overall. Yesterday, I placed him on a bicarb drip as well, that seems to have helped him. He is on a BiPAP at this time. OBJECTIVE: VITAL SIGNS: Stable. He is in sinus rhythm. HEART: S1 and S2 heard normally distantly. There is a short systolic murmur. LUNGS: Reveal bilateral fair air entry. ABDOMEN: Distended. Not examined. EXTREMITIES: Lower extremities reveal diminished pulses. This patient has elevated troponin, but this is not suggestive of any myocardial injury. This is probably related to hypoxia situation. RECOMMENDATIONS: I would continue the supportive care. No special recommendation from a cardiac standpoint. LV function is well preserved, and he does not seem to have significant pulmonary hypertension. Heparin can be resumed whenever Dr. Heck gives the okay. We will continue to see the patient as needed. CELINEL / MARCION: [id number] /
[2022-05-01] MEDS: GABAPENTIN 400 MG CAP PO SCH ×2 (16:09→21:16)
[2022-05-01 16:39] LABS: Glucose,Whole Blood 218 mg/dL (70-110)
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
[2022-05-01 21:12] LABS: Glucose,Whole Blood 231 mg/dL (70-110)
[2022-05-01] MEDS: TAMSULOSIN 0.4 MG CAP.ER.24H PO SCH (21:16)
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
[2022-05-02 00:54] LABS: % Iron Saturation 6.35 (15.00-50.00)
[2022-05-02 06:07] LABS: HCT 22.2 % (39.0-53.0); Hypochromasia Moderate; MCV 96.9 fL (80.0-100.0); Mean Platelet Volume 8.5; Platelet Count 155 k/uL (150-450); RBC 2.29 m/uL (4.30-5.90); RDW 14.3 % (11.5-15.5); WBC 8.2 k/uL (3.8-10.6)
[2022-05-02] MEDS: PIPERACILLIN-TAZOBACTAM 3.375 GM in SODIUM CHLORIDE 0.9% 100 ML IVPB SCH ×3 (06:12→21:26)
[2022-05-02 06:20] LABS: HGB 7.3 gm/dL (13.0-17.5)
[2022-05-02 06:31] LABS: Calcium 7.6 mg/dL (8.4-10.2); Potassium 4.4 mmol/L (3.5-5.1)
[2022-05-02 06:38] LABS: Glucose,Whole Blood 248 mg/dL (70-110)
[2022-05-02] MEDS: INSULIN ASPART (NovoLOG) 100 UNIT/ML VIAL SQ SCH ×4 (06:47→21:26)
[2022-05-02] MEDS: NOREPINEPHRINE 4 MG in SODIUM CHLORIDE 0.9% 250 ML IV SCH ×2 (07:50→18:16)
[2022-05-02] MEDS: IPRATROPIUM-ALBUTEROL 3 ML NEB INHALATION SCH ×4 (07:56→19:17)
[2022-05-02] MEDS: GABAPENTIN 400 MG CAP PO SCH ×3 (07:57→20:47)
[2022-05-02] MEDS: METOPROLOL TARTRATE 25 MG TAB PO SCH ×3 (07:57→20:47)
[2022-05-02] MEDS ORDERED: PANTOPRAZOLE 40 MG/10 ML VIAL IVP SCH (09:00)
[2022-05-02 11:23] LABS: Glucose,Whole Blood 275 mg/dL (70-110)
[2022-05-02] MEDS: TAMSULOSIN 0.4 MG CAP.ER.24H PO SCH ×2 (11:25→20:48)
[2022-05-02] MEDS: SODIUM BICARBONATE TAB 650 MG TAB PO SCH ×2 (11:25→20:47)
[2022-05-02] MEDS: SODIUM CHLORIDE 0.9% 1,000 ML IV SCH (11:26)
--- NOTE | 2022-05-02 12:55 | P.PN ---
Subjective Patient is seen in follow-up for acute kidney injury. Renal function improved. Nonoliguric. Receiving normal saline. Also received a unit of blood this morning. Having coffee-ground emesis per nurse. On 4 L nasal cannula. Blood pressure stable. Vital signs are stable. General: No acute distress. HEENT: Head exam is unremarkable. On nasal cannula. LUNGS: Breath sounds decreased. HEART: Rate and Rhythm are regular. ABDOMEN: Soft, no tenderness. EXTREMITITES: Trace edema. Objective - Vital Signs Vital signs: Vital Signs Temp 98.2 F 05/02/22 12:00 Pulse 107 H 05/02/22 12:00 Resp 27 H 05/02/22 12:00 BP 138/66 05/02/22 12:00 Pulse Ox 98 05/02/22 12:00 FiO2 35 05/02/22 00:00 Intake & Output 05/01/22 05/02/22 05/02/22 18:59 06:59 18:59 Intake Total 1150 900 610 Output Total 1775 2835 375 Balance -625 -1935 235 Weight 127 kg Intake: IV 1025 900 300 Piperacillin-Tazobactam 3 100 .375 gm In Sodium Chloride 0.9% 100 ml @ 25 mls/hr IVPB Q8H [facility] Rx#: [id number] Sodium Chloride 0.9% 1, 925 900 300 000 ml @ 75 mls/hr IV . [id number] [facility] Rx#:[id number] Intake, IV Titration 125 Amount Sodium Chloride 0.9% 1, 125 000 ml @ 75 mls/hr IV . [id number] [facility] Rx#:[id number] Blood Product 310 Rc As-1 Unit 310 [id number] Output: Drainage 100 80 Left Groin 100 60 Right Groin 20 Urine 1675 2455 375 Emesis 300 Other: Voiding Method Indwelling Catheter Indwelling Catheter Indwelling Catheter # Bowel Movements 1 1 2 - Labs CBC & Chem 7: 05/02/22 05:17 05/02/22 05:17 Labs: Abnormal Lab Results - Last 24 Hours (Table) 05/01/22 05/01/22 05/01/22 Range/Units 05:26 16:38 21:10 RBC (4.30-5.90) m/uL Hgb (13.0-17.5) gm/dL Hct (39.0-53.0) % Chloride (98-107) mmol/L BUN (9-20) mg/dL Creatinine (0.66-1.25) mg/dL Glucose (74-99) mg/dL POC Glucose (mg/dL) 218 H 231 H (70-110) mg/dL Calcium (8.4-10.2) mg/dL Iron 15 L (65-175) ug/dL % Saturation 6.35 L (15.00-50.00) Transferrin 163.0 L (204.0-354.0) mg/dL Crossmatch 05/02/22 05/02/22 05/02/22 Range/Units 05:17 05:17 06:36 RBC 2.29 L (4.30-5.90) m/uL Hgb 7.3 L D (13.0-17.5) gm/dL Hct 22.2 L (39.0-53.0) % Chloride 117 H (98-107) mmol/L BUN 72 H (9-20) mg/dL Creatinine 1.50 H (0.66-1.25) mg/dL Glucose 198 H (74-99) mg/dL POC Glucose (mg/dL) 248 H (70-110) mg/dL Calcium 7.6 L (8.4-10.2) mg/dL Iron (65-175) ug/dL % Saturation (15.00-50.00) Transferrin (204.0-354.0) mg/dL Crossmatch 05/02/22 05/02/22 Range/Units 06:46 11:21 RBC (4.30-5.90) m/uL Hgb (13.0-17.5) gm/dL Hct (39.0-53.0) % Chloride (98-107) mmol/L BUN (9-20) mg/dL Creatinine (0.66-1.25) mg/dL Glucose (74-99) mg/dL POC Glucose (mg/dL) 275 H (70-110) mg/dL Calcium (8.4-10.2) mg/dL Iron (65-175) ug/dL % Saturation (15.00-50.00) Transferrin (204.0-354.0) mg/dL Crossmatch See Detail Microbiology - Last 24 Hours (Table) 04/30/22 07:45 Blood Culture Gram Stain - Preliminary Blood Blood Culture - Preliminary Pseudomonas aeruginosa 04/30/22 08:00 Blood Culture - Preliminary Blood No Growth after 48 hours Assessment and Plan Plan: Assessment: 1. Acute kidney injury secondary to hemodynamic ATN. Baseline creatinine near 1 and was 2.77 on admission - 1.5 today. Nonoliguric. No hydronephrosis noted on CAT scan. Left kidney smaller in size. UA benign. 2. Status post abdominal wall reconstruction and panniculectomy on 04/28/2022. 3. Hyperkalemia secondary to acute kidney injury and hyperglycemia. Resolved. 4. Diabetes mellitus. 5. Metabolic acidosis secondary to acute kidney injury and IV fluids. On oral bicarb. Better. 6. Pseudomonas aeruginosa bacteremia on abx. ID following. 7. GI bleed status post blood transfusion this admission. Plan: Hep-Lock IV fluids. Avoid nephrotoxins. Continue to monitor renal function and urine output.
[2022-05-02 13:06] LABS: HCT 24.2 % (39.0-53.0); HGB 7.9 gm/dL (13.0-17.5); Hypochromasia Slight; MCH 31.3 pg (25.0-35.0); MCHC 32.6 g/dL (31.0-37.0); MCV 96.2 fL (80.0-100.0); Mean Platelet Volume 8.2; Platelet Count 170 k/uL (150-450); RBC 2.52 m/uL (4.30-5.90); RDW 14.7 % (11.5-15.5); WBC 10.2 k/uL (3.8-10.6)
--- NOTE | 2022-05-02 13:22 | P.PN ---
Subjective Progress Note Date: 05/02/22 Principal diagnosis: Respiratory failure. Pulmonary consult dated 04/30/2022. 71-year-old male with history of COPD, diabetes, and sleep apnea, who presented to the emergency department on April 30, 720 in the morning, with mental status changes, and we. The patient was discharged from [facility], on the . He had surgery by Dr. Loredo on April 28. The patient came back into the hospital, at 6:00 this morning. He apparently was found to be profoundly weak at home, according to his , with diarrhea, lethargy, somnolence, and inability to care for himself. The patient is seen in the emergency department, and is currently on BiPAP, with settings of 10/5 and 35%. The patient's getting saline at 150 mL an hour. His primary care provider is Dr. Garcia, and he also sees my partner, Dr. Kraus for COPD. He does use oxygen at home, and also has a home nebulizer machine. On April 28, the patient underwent an abdominal wall reconstruction with myocutaneous bilateral flap advancement, and a panniculectomy. The patient was anxious to be discharged from the hospital, and petitioned the surgeon, and was discharged on April 29. He came back in later that day, at 7 PM, but after waiting for 4 or 5 hours, decided to go home. They came back into the hospital on the morning of the , at 6 AM. White count 16.3, hemoglobin 10.4, hematocrit 32.5, and platelet count 225,000. Blood gases show pO2 of 98, pCO2 of 62, and a pH of 7.20. That was on 35% oxygen. Sodium 139, potassium 5.3, chlorides 107, CO2 25, BUN 75, and creatinine 2.77. Troponin was 0.044 and 0.051. N-terminal proBNP was 593. Progress note dated 05/01/2022. 71-year-old male with history of COPD, diabetes, and sleep apnea, who was seen in the emergency department yesterday. He apparently was admitted with mental status changes. The patient was discharged from [facility] on April 29, after having a surgery done by Dr. Loredo, the day prior. The patient was admitted to the floor, and then was moved to the intensive care unit, overnight, because of worsening respiratory distress, and low blood pressure. I gave the order to start him on some norepinephrine, but the patient never needed to be started on norepinephrine. Currently, he's on 4 L nasal cannula. He is awake and alert. He did use BiPAP throughout the night, with settings of 10/5 and 35%. Today's postop day #3. The blood cultures showed evidence of gram-negative bacilli. They have yet to be identified. He is currently on Zosyn. White count 9.4, hemoglobin 9.7, hematocrit 30.6, and platelet count 253,000. Sodium 141, potassium 4.9, chlorides 114, CO2 19, BUN 84, and creatinine 2.70. Cortisol level was 24. Blood cultures are showing evidence of Pseudomonas aeruginosa. Sensitivities are currently pending. Progress note dated 05/02/2022. 71-year-old male seen in consultation 2 days ago. The patient is seen again in the intensive care unit, room 252. The patient's on 4 L of oxygen. He is getting saline at 75 mL an hour. He is getting 1 unit of packed red blood cells. The patient apparently is been having some dark diarrhea, and coffee- ground emesis. Also, the patient appears to be stable. Lab work includes a white count 10.2, hemoglobin 7.9, hematocrit 24.2, and a platelet count is normal. Sodium 143, potassium 4.4, chlorides 117, CO2 24, BUN 72, and creatin ine 1.5. Calcium 7.6. Blood cultures were positive for pseudomonas aeruginosa. The patient remains on Zosyn. Objective - Vital Signs Vital signs: Vital Signs Temp 98.2 F 05/02/22 12:00 Pulse 107 H 05/02/22 12:00 Resp 27 H 05/02/22 12:00 BP 138/66 05/02/22 12:00 Pulse Ox 98 05/02/22 12:00 FiO2 35 05/02/22 00:00 Intake & Output 05/01/22 05/02/22 05/02/22 18:59 06:59 18:59 Intake Total 1150 900 610 Output Total 1989 9985 375 Balance -625 -1938 235 Weight 127 kg Intake: IV 1025 900 300 Piperacillin-Tazobactam 3 100 .375 gm In Sodium Chloride 0.9% 100 ml @ 25 mls/hr IVPB Q8H [facility] Rx#: [id number] Sodium Chloride 0.9% 1, 925 900 300 000 ml @ 75 mls/hr IV . [id number] [facility] Rx#:[id number] Intake, IV Titration 125 Amount Sodium Chloride 0.9% 1, 125 000 ml @ 75 mls/hr IV . [id number] [facility] Rx#:[id number] Blood Product 310 Rc As-1 Unit 310 [id number] Output: Drainage 100 80 Left Groin 100 60 Right Groin 20 Urine 1675 2455 375 Emesis 300 Other: Voiding Method Indwelling Catheter Indwelling Catheter Indwelling Catheter # Bowel Movements 1 1 2 - Exam No acute distress, awake and alert, currently on 4 L of oxygen. HEENT examination is grossly unremarkable. Neck supple. Full range of motion. No adenopathy thyromegaly or neck vein distention. Cardiovascular examination reveals regular rhythm rate. S1-S2 normal. No S3 or S4. No discernible murmur noted. Heart sounds are distant. Heart rate 101 bpm. Lungs reveal scattered bilateral rhonchi. No wheezes. No crackles. Breath sounds are equal bilaterally. Saturations are 98 % on 4 L of oxygen. Abdomen soft, without bowel sounds. Abdomen obese. Drains are noted at the lower portion of the abdomen. Extremities are intact. No cyanosis or clubbing. Trace edema noted. Skin is without rash or lesion. Neurologic examination reveals the patient to be awake and alert. - Labs CBC & Chem 7: 05/02/22 12:24 05/02/22 05:17 Labs: Abnormal Lab Results - Last 24 Hours (Table) 05/01/22 05/01/22 05/01/22 Range/Units 05:26 16:38 21:10 RBC (4.30-5.90) m/uL Hgb (13.0-17.5) gm/dL Hct (39.0-53.0) % Chloride (98-107) mmol/L BUN (9-20) mg/dL Creatinine (0.66-1.25) mg/dL Glucose (74-99) mg/dL POC Glucose (mg/dL) 218 H 231 H (70-110) mg/dL Calcium (8.4-10.2) mg/dL Iron 15 L (65-175) ug/dL % Saturation 6.35 L (15.00-50.00) Transferrin 163.0 L (204.0-354.0) mg/dL Crossmatch 05/02/22 05/02/22 05/02/22 Range/Units 05:17 05:17 06:36 RBC 2.29 L (4.30-5.90) m/uL Hgb 7.3 L D (13.0-17.5) gm/dL Hct 22.2 L (39.0-53.0) % Chloride 117 H (98-107) mmol/L BUN 72 H (9-20) mg/dL Creatinine 1.50 H (0.66-1.25) mg/dL Glucose 198 H (74-99) mg/dL POC Glucose (mg/dL) 248 H (70-110) mg/dL Calcium 7.6 L (8.4-10.2) mg/dL Iron (65-175) ug/dL % Saturation (15.00-50.00) Transferrin (204.0-354.0) mg/dL Crossmatch 05/02/22 05/02/22 05/02/22 Range/Units 06:46 11:21 12:24 RBC 2.52 L (4.30-5.90) m/uL Hgb 7.9 L (13.0-17.5) gm/dL Hct 24.2 L (39.0-53.0) % Chloride (98-107) mmol/L BUN (9-20) mg/dL Creatinine (0.66-1.25) mg/dL Glucose (74-99) mg/dL POC Glucose (mg/dL) 275 H (70-110) mg/dL Calcium (8.4-10.2) mg/dL Iron (65-175) ug/dL % Saturation (15.00-50.00) Transferrin (204.0-354.0) mg/dL Crossmatch See Detail Microbiology - Last 24 Hours (Table) 04/30/22 07:45 Blood Culture Gram Stain - Preliminary Blood Blood Culture - Preliminary Pseudomonas aeruginosa 04/30/22 08:00 Blood Culture - Preliminary Blood No Growth after 48 hours Assessment and Plan Assessment: Postop day #4, status post abdominal wall reconstruction with myocutaneous bilateral flap advancement, and panniculectomy. 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 Rule out non-ST segment elevation myocardial infarction. Pseudomonas aeruginosa bacteremia. History of COPD. Obesity. History of diabetes mellitus. History of sleep apnea syndrome. History of CVA. History of hyperlipidemia. History of hypertension. History of osteoarthritis. History of BPH. Plan: Plan dated 04/30/2022. The patient's blood gases are typical of somebody with alveolar hypoventilation from excess narcotics. The patient does use hydrocodone at home and may have taken too many. His states that she is one who gives him his medication. Patient has been seen by the surgeon. I saw the patient down in the emergency department. Labs, x-rays, and medications are reviewed. The patient be admitt ed to the monitored floor. Cardiology should be asked to see the patient. Additional recommendations and suggestions are forthcoming. Prognosis is guarded. The patient is a DO NOT RESUSCITATE patient. Plan dated 05/01/2022. The patient is doing much better today than he was yesterday. He is much more awake and alert. He never required norepinephrine for blood pressure support. The patient's currently on blood cultures were positive for pseudomonas aeruginosa. The patient remains on Zosyn. Additional recommendations and suggestions are forthcoming. We will await the sensitivities. Labs, x-rays, and medications are reviewed. Prognosis is guarded. The patient is a DO NOT RESUSCITATE patient. Plan dated 05/02/2022. Currently, the patient is doing much better. He remains on Zosyn. Blood cultures are positive for pseudomonas aeruginosa. Labs, x-rays, medications are heard. The patient is much more awake and alert. He sitting up in a chair next to the bed. He continues on 4 L of oxygen. Labs, x-rays, medications are reviewed. Prognosis is guarded. The patient is a DO NOT RESUSCITATE patient. Time with Patient: Less than 30
[2022-05-02 16:26] LABS: Glucose,Whole Blood 286 mg/dL (70-110)
--- NOTE | 2022-05-02 16:29 | P.PN ---
Subjective Progress Note Date: 05/02/22 Principal diagnosis: Pseudomonas bacteremia Patient is a 71-year-old male with a past medical history significant for COPD diabetes mellitus sleep apnea in this patient who recently did have a abdominal wall reconstruction with myocutaneous bilateral flap panniculectomy procedure completed on 04/28/2022 patient was subsequently discharged home, patient presenting back to the hospital 04/30/2022 for evaluation of weakness and concern for possible abdominal drain not working, CT of abdominal pelvis did not show any drainable abscess patient did have a positive blood culture for pseudomonas aeruginosa. On today's evaluation that is 05/02/2022, the patient did have a low-grade 100.2 this morning the patient is afebrile since then the patient is breathing comfortably denies any chest pain or shortness of breath occasional cough abdominal pain is currently controlled with nausea no vomiting or any diarrhea Objective - Vital Signs Vital signs: Vital Signs Temp 98.2 F 05/02/22 12:00 Pulse 107 H 05/02/22 12:00 Resp 27 H 05/02/22 12:00 BP 138/66 05/02/22 12:00 Pulse Ox 98 05/02/22 12:00 FiO2 35 05/02/22 00:00 Intake & Output 05/01/22 05/02/22 05/02/22 18:59 06:59 18:59 Intake Total 1150 900 610 Output Total 1775 2835 375 Balance -625 -1935 235 Weight 127 kg Intake: IV 1025 900 300 Piperacillin-Tazobactam 3 100 .375 gm In Sodium Chloride 0.9% 100 ml @ 25 mls/hr IVPB Q8H [facility] Rx#: [id number] Sodium Chloride 0.9% 1, 925 900 300 000 ml @ 75 mls/hr IV . [id number] [facility] Rx#:[id number] Intake, IV Titration 125 Amount Sodium Chloride 0.9% 1, 125 000 ml @ 75 mls/hr IV . [id number] [facility] Rx#:[id number] Blood Product 310 Rc As-1 Unit 310 [id number] Output: Drainage 100 80 Left Groin 100 60 Right Groin 20 Urine 1675 2455 375 Emesis 300 Other: Voiding Method Indwelling Catheter Indwelling Catheter Indwelling Catheter # Bowel Movements 1 1 2 - Exam GENERAL DESCRIPTION: An elderly male up in the chair RESPIRATORY SYSTEM: Unlabored breathing , decreased breath sounds at bases HEART: S1 S2 regular rate and rhythm , ABDOMEN: Soft , abdominal binder is on, no tenderness EXTREMITIES: No edema feet - Labs CBC & Chem 7: 05/02/22 12:24 05/02/22 05:17 Labs: Abnormal Lab Results - Last 24 Hours (Table) 05/01/22 05/01/22 05/01/22 Range/Units 05:26 16:38 21:10 RBC (4.30-5.90) m/uL Hgb (13.0-17.5) gm/dL Hct (39.0-53.0) % Chloride (98-107) mmol/L BUN (9-20) mg/dL Creatinine (0.66-1.25) mg/dL Glucose (74-99) mg/dL POC Glucose (mg/dL) 218 H 231 H (70-110) mg/dL Calcium (8.4-10.2) mg/dL Iron 15 L (65-175) ug/dL % Saturation 6.35 L (15.00-50.00) Transferrin 163.0 L (204.0-354.0) mg/dL Crossmatch 05/02/22 05/02/22 05/02/22 Range/Units 05:17 05:17 06:36 RBC 2.29 L (4.30-5.90) m/uL Hgb 7.3 L D (13.0-17.5) gm/dL Hct 22.2 L (39.0-53.0) % Chloride 117 H (98-107) mmol/L BUN 72 H (9-20) mg/dL Creatinine 1.50 H (0.66-1.25) mg/dL Glucose 198 H (74-99) mg/dL POC Glucose (mg/dL) 248 H (70-110) mg/dL Calcium 7.6 L (8.4-10.2) mg/dL Iron (65-175) ug/dL % Saturation (15.00-50.00) Transferrin (204.0-354.0) mg/dL Crossmatch 05/02/22 05/02/22 Range/Units 06:46 11:21 RBC (4.30-5.90) m/uL Hgb (13.0-17.5) gm/dL Hct (39.0-53.0) % Chloride (98-107) mmol/L BUN (9-20) mg/dL Creatinine (0.66-1.25) mg/dL Glucose (74-99) mg/dL POC Glucose (mg/dL) 275 H (70-110) mg/dL Calcium (8.4-10.2) mg/dL Iron (65-175) ug/dL % Saturation (15.00-50.00) Transferrin (204.0-354.0) mg/dL Crossmatch See Detail Microbiology - Last 24 Hours (Table) 04/30/22 07:45 Blood Culture Gram Stain - Preliminary Blood Blood Culture - Preliminary Pseudomonas aeruginosa 04/30/22 08:00 Blood Culture - Preliminary Blood No Growth after 48 hours Assessment and Plan (1) Bacteremia due to Pseudomonas Current Visit: Yes Status: Acute Code(s): R78.81 - BACTEREMIA; B96.5 - PSEUDOMONAS (MALLEI) CAUSING DISEASES [facility] SNOM[facility] Code(s): 5065674429 Plan: 1patient with a Pseudomonas bacteremia in this patient who recently did have extensive abdominal wall reconstruction with myocutaneous flap and panniculecto my with concern for possible abdominal source versus pneumonia as CT abdominal pelvis did not show any intra-abdominal abscess and showed some right lower lobe infiltrate. 2blood cultures has been repeated document clearance of bacteremia. 3patient seemed to have some clinical improvement and will continue Zosyn and monitor clinical course closely Time with Patient: Less than 30
[2022-05-02] MEDS: SODIUM FERRIC GLUCONAT-SUCROSE 125 MG in SODIUM CHLORIDE 0.9% 100 ML IVPB SCH (18:12)
--- NOTE | 2022-05-02 19:31 | PN ---
PROGRESS NOTE SUBJECTIVE: Mr. Zuleta is a gentleman, who had a recent hernia repair surgery. Following that, he developed some altered mentation and had hypercapnic picture; however, he is doing better. His hemoglobin is down. We will check another CBC at 6 p.m. He remains in sinus rhythm, sinus tachycardia at a rate of nearly 120 beats per minute. There is dropping in hemoglobin noted. I am recommending we check additional CBC, and his heparin has been discontinued. He is on antibiotics and IV fluids. He has multiple comorbid conditions in the form of obstructive sleep apnea, hypertension, hyperlipidemia, obesity, and recent surgery. From a cardiac standpoint, I will recommend that we add metoprolol tartrate 25 mg t.i.d. His urine output is fair. We will obtain a repeat CBC as well. No heparin in view of drop in hemoglobin and recent surgery. PHYSICAL EXAMINATION: HEART: Reveals S1 and S2 heard normally, but distantly. LUNGS: Bilateral fair air entry. ABDOMEN: Deferred. EXTREMITIES: Lower extremities reveal diminished pulses. Mild bilateral edema. MMODL / IJN: [id number] /
[2022-05-02 19:45] LABS: HCT 21.2 % (39.0-53.0); Hypochromasia Moderate; MCH 31.6 pg (25.0-35.0); MCHC 32.6 g/dL (31.0-37.0); MCV 96.8 fL (80.0-100.0); Mean Platelet Volume 8.2; Platelet Count 151 k/uL (150-450); RBC 2.19 m/uL (4.30-5.90); RDW 14.7 % (11.5-15.5); WBC 8.2 k/uL (3.8-10.6)
[2022-05-02 19:47] LABS: HGB 6.9 gm/dL (13.0-17.5)
[2022-05-02] MEDS: PANTOPRAZOLE 40 MG/10 ML VIAL IVP SCH (20:48)
[2022-05-02 21:32] LABS: Glucose,Whole Blood 315 mg/dL (70-110)
[2022-05-02 21:36] LABS: Glucose,Whole Blood 301 mg/dL (70-110)
--- NOTE | 2022-05-02 21:50 | P.PN ---
Subjective Progress Note Date: 05/02/22 He is evaluated in the ICU today, Hgb 6.9 yesterday and pt receiving 1 U PRBC. He continues on supplemental O2. Pt denies chest pain, shortness of breath, fever, chills. Objective - Vital Signs Vital signs: Vital Signs Temp 98.1 F 05/02/22 21:25 Pulse 102 H 05/02/22 21:25 Resp 21 05/02/22 21:25 BP 126/53 05/02/22 21:25 Pulse Ox 94 L 05/02/22 21:25 FiO2 21 05/02/22 19:19 Intake & Output 05/02/22 05/02/22 05/03/22 06:59 18:59 06:59 Intake Total 900 1680 30 Output Total 2835 1115 670 Balance -1935 565 -640 Weight 127 kg Intake: IV 900 360 30 Sodium Chloride 0.9% 1, 900 360 30 000 ml @ 75 mls/hr IV . [id number] [facility] Rx#:[id number] Oral 700 Blood Product 620 0 Unit 0 Rc As-1 Unit 310 [id number] Output: Drainage 80 20 Left Groin 60 10 Right Groin 20 10 Urine 2455 1115 650 Emesis 300 Other: Voiding Method Indwelling Catheter Indwelling Catheter # Bowel Movements 1 2 - Exam Gen: well developed, well nourished, NAD CV: RRR, no murmur Lungs: CTAB Abd: wrapped in binder. nontender - Labs CBC & Chem 7: 05/02/22 18:09 05/02/22 05:17 Labs: Abnormal Lab Results - Last 24 Hours (Table) 05/01/22 05/02/22 05/02/22 Range/Units 05:26 05:17 05:17 RBC 2.29 L (4.30-5.90) m/uL Hgb 7.3 L D (13.0-17.5) gm/dL Hct 22.2 L (39.0-53.0) % Chloride 117 H (98-107) mmol/L BUN 72 H (9-20) mg/dL Creatinine 1.50 H (0.66-1.25) mg/dL Glucose 198 H (74-99) mg/dL POC Glucose (mg/dL) (70-110) mg/dL Calcium 7.6 L (8.4-10.2) mg/dL Iron 15 L (65-175) ug/dL % Saturation 6.35 L (15.00-50.00) Transferrin 163.0 L (204.0-354.0) mg/dL Crossmatch 05/02/22 05/02/22 05/02/22 Range/Units 06:36 06:46 11:21 RBC (4.30-5.90) m/uL Hgb (13.0-17.5) gm/dL Hct (39.0-53.0) % Chloride (98-107) mmol/L BUN (9-20) mg/dL Creatinine (0.66-1.25) mg/dL Glucose (74-99) mg/dL POC Glucose (mg/dL) 248 H 275 H (70-110) mg/dL Calcium (8.4-10.2) mg/dL Iron (65-175) ug/dL % Saturation (15.00-50.00) Transferrin (204.0-354.0) mg/dL Crossmatch See Detail 05/02/22 05/02/22 05/02/22 Range/Units 12:24 16:24 18:09 RBC 2.52 L 2.19 L (4.30-5.90) m/uL Hgb 7.9 L 6.9 L* (13.0-17.5) gm/dL Hct 24.2 L 21.2 L (39.0-53.0) % Chloride (98-107) mmol/L BUN (9-20) mg/dL Creatinine (0.66-1.25) mg/dL Glucose (74-99) mg/dL POC Glucose (mg/dL) 286 H (70-110) mg/dL Calcium (8.4-10.2) mg/dL Iron (65-175) ug/dL % Saturation (15.00-50.00) Transferrin (204.0-354.0) mg/dL Crossmatch 05/02/22 05/02/22 Range/Units 21:20 21:35 RBC (4.30-5.90) m/uL Hgb (13.0-17.5) gm/dL Hct (39.0-53.0) % Chloride (98-107) mmol/L BUN (9-20) mg/dL Creatinine (0.66-1.25) mg/dL Glucose (74-99) mg/dL POC Glucose (mg/dL) 315 H 301 H (70-110) mg/dL Calcium (8.4-10.2) mg/dL Iron (65-175) ug/dL % Saturation (15.00-50.00) Transferrin (204.0-354.0) mg/dL Crossmatch Microbiology - Last 24 Hours (Table) 04/30/22 07:45 Blood Culture Gram Stain - Preliminary Blood Blood Culture - Preliminary Pseudomonas aeruginosa 04/30/22 08:00 Blood Culture - Preliminary Blood No Growth after 48 hours Assessment and Plan Plan: Continue with current management, transfuse for Hgb <7, zosyn for pseudomonas bacteremia, supplemental O2
--- NOTE | 2022-05-02 23:40 | P.PN ---
Subjective Progress Note Date: 05/02/22 Patient clinically doing better. ANGELO sites clean, dry and intact. No abdominal pain. ANGELO becoming more serous than sanguinous. Has tibial edema of the extremities with fluid overload. Nurse confirms patient has dark foul smelling stools. Patient reports developing diarrhea after surgery. His WBC is normal. Hgb dropped less than 7.0. He did receive blood transfusion. Agree with blood transfusion. May benefit for lasix due to volume overload. Pending clearances from multiple providers prior to discharge. Keep abdominal binder Objective - Vital Signs Vital signs: Vital Signs Temp 98.1 F 05/02/22 21:25 Pulse 94 05/02/22 23:00 Resp 22 05/02/22 23:00 BP 127/60 05/02/22 23:00 Pulse Ox 93 L 05/02/22 23:00 FiO2 21 05/02/22 19:19 Intake & Output 05/02/22 05/02/22 05/03/22 06:59 18:59 06:59 Intake Total 900 1680 100 Output Total 2835 1115 1280 Balance -1935 565 -1180 Weight 127 kg Intake: IV 900 360 100 Piperacillin-Tazobactam 3 50 .375 gm In Sodium Chloride 0.9% 100 ml @ 25 mls/hr IVPB Q8H [facility] Rx#: [id number] Sodium Chloride 0.9% 1, 900 360 50 000 ml @ 75 mls/hr IV . [id number] [facility] Rx#:[id number] Oral 700 Blood Product 620 0 Unit 0 Rc As-1 Unit 310 [id number] Output: Drainage 80 20 Left Groin 60 10 Right Groin 20 10 Urine 2455 1115 1260 Emesis 300 Other: Voiding Method Indwelling Catheter Indwelling Catheter Indwelling Catheter # Bowel Movements 1 2 - Labs CBC & Chem 7: 05/02/22 18:09 05/02/22 05:17 Labs: Abnormal Lab Results - Last 24 Hours (Table) 05/01/22 05/02/22 05/02/22 Range/Units 05:26 05:17 05:17 RBC 2.29 L (4.30-5.90) m/uL Hgb 7.3 L D (13.0-17.5) gm/dL Hct 22.2 L (39.0-53.0) % Chloride 117 H (98-107) mmol/L BUN 72 H (9-20) mg/dL Creatinine 1.50 H (0.66-1.25) mg/dL Glucose 198 H (74-99) mg/dL POC Glucose (mg/dL) (70-110) mg/dL Calcium 7.6 L (8.4-10.2) mg/dL Iron 15 L (65-175) ug/dL % Saturation 6.35 L (15.00-50.00) Transferrin 163.0 L (204.0-354.0) mg/dL Crossmatch 05/02/22 05/02/22 05/02/22 Range/Units 06:36 06:46 11:21 RBC (4.30-5.90) m/uL Hgb (13.0-17.5) gm/dL Hct (39.0-53.0) % Chloride (98-107) mmol/L BUN (9-20) mg/dL Creatinine (0.66-1.25) mg/dL Glucose (74-99) mg/dL POC Glucose (mg/dL) 248 H 275 H (70-110) mg/dL Calcium (8.4-10.2) mg/dL Iron (65-175) ug/dL % Saturation (15.00-50.00) Transferrin (204.0-354.0) mg/dL Crossmatch See Detail 05/02/22 05/02/22 05/02/22 Range/Units 12:24 16:24 18:09 RBC 2.52 L 2.19 L (4.30-5.90) m/uL Hgb 7.9 L 6.9 L* (13.0-17.5) gm/dL Hct 24.2 L 21.2 L (39.0-53.0) % Chloride (98-107) mmol/L BUN (9-20) mg/dL Creatinine (0.66-1.25) mg/dL Glucose (74-99) mg/dL POC Glucose (mg/dL) 286 H (70-110) mg/dL Calcium (8.4-10.2) mg/dL Iron (65-175) ug/dL % Saturation (15.00-50.00) Transferrin (204.0-354.0) mg/dL Crossmatch 05/02/22 05/02/22 Range/Units 21:20 21:35 RBC (4.30-5.90) m/uL Hgb (13.0-17.5) gm/dL Hct (39.0-53.0) % Chloride (98-107) mmol/L BUN (9-20) mg/dL Creatinine (0.66-1.25) mg/dL Glucose (74-99) mg/dL POC Glucose (mg/dL) 315 H 301 H (70-110) mg/dL Calcium (8.4-10.2) mg/dL Iron (65-175) ug/dL % Saturation (15.00-50.00) Transferrin (204.0-354.0) mg/dL Crossmatch Microbiology - Last 24 Hours (Table) 04/30/22 07:45 Blood Culture Gram Stain - Preliminary Blood Blood Culture - Preliminary Pseudomonas aeruginosa 04/30/22 08:00 Blood Culture - Preliminary Blood No Growth after 48 hours
[2022-05-03] MEDS: PIPERACILLIN-TAZOBACTAM 3.375 GM in SODIUM CHLORIDE 0.9% 100 ML IVPB SCH ×3 (05:20→21:53)
[2022-05-03] MEDS: IPRATROPIUM-ALBUTEROL 3 ML NEB INHALATION SCH ×4 (05:37→19:57)
[2022-05-03 06:34] LABS: HCT 25.1 % (39.0-53.0); HGB 8.3 gm/dL (13.0-17.5); Hypochromasia Marked; MCHC 33.2 g/dL (31.0-37.0); MCV 96.4 fL (80.0-100.0); Mean Platelet Volume 7.7; Platelet Count 154 k/uL (150-450); Poikilocytosis Slight; RDW 15.3 % (11.5-15.5); WBC 7.5 k/uL (3.8-10.6)
[2022-05-03 06:48] LABS: Calcium 8.2 mg/dL (8.4-10.2); Potassium 4.4 mmol/L (3.5-5.1)
[2022-05-03 07:04] LABS: Glucose,Whole Blood 264 mg/dL (70-110)
[2022-05-03] MEDS: INSULIN ASPART (NovoLOG) 100 UNIT/ML VIAL SQ SCH ×4 (07:11→21:52)
[2022-05-03] MEDS: SODIUM FERRIC GLUCONAT-SUCROSE 125 MG in SODIUM CHLORIDE 0.9% 100 ML IVPB SCH (08:42)
[2022-05-03] MEDS: PANTOPRAZOLE 40 MG/10 ML VIAL IVP SCH ×2 (08:42→21:53)
[2022-05-03] MEDS: SODIUM BICARBONATE TAB 650 MG TAB PO SCH ×2 (08:42→21:52)
[2022-05-03] MEDS: GABAPENTIN 400 MG CAP PO SCH ×3 (08:43→21:52)
[2022-05-03] MEDS: TAMSULOSIN 0.4 MG CAP.ER.24H PO SCH ×2 (08:43→21:52)
[2022-05-03] MEDS: METOPROLOL TARTRATE 25 MG TAB PO SCH (08:43)
[2022-05-03] MEDS ORDERED: METOPROLOL TARTRATE 25 MG TAB PO STA (09:38)
--- NOTE | 2022-05-03 09:41 | P.PN ---
Subjective Progress Note Date: 05/03/22 Principal diagnosis: Paroxysmal atrial fibrillation The patient is a 71-year-old gentleman with a past medical history significant for obesity and sleep apnea and hypertension and dyslipidemia who was admitted to the hospital and underwent an abdominal hernia surgery. We consulted to see the patient because of paroxysmal atrial fibrillation. Apparently during his hospital stay he went into atrial fibrillation with RVR and subsequently converted to normal sinus mechanism. Also he developed gastrointestinal bleeding and he required 2 units of packed RBC. He underwent an echo which revealed normal left ventricle systolic function was no significant valvular abnormalities May [id number] The patient was seen and evaluated this morning. He has been maintaining normal sinus mechanism. He has been hemodynamic be stable. He was started on metoprolol yesterday at 25 mg by mouth 3 times a day which I'm going to increase to 50 mg by mouth twice a day. Hold anticoagulation because of the GI bleeding. Objective - Vital Signs Vital signs: Vital Signs Temp 97.9 F 05/03/22 08:00 Pulse 106 H 05/03/22 09:00 Resp 05/03/22 09:00 BP 129/97 05/03/22 09:00 Pulse Ox 96 05/03/22 09:00 FiO2 21 05/02/22 19:19 Intake & Output 05/02/22 05/03/22 05/03/22 18:59 06:59 18:59 Intake Total 1680 580 35 Output Total 1115 2605 225 Balance 56190 Weight 125.5 kg Intake: IV 360 270 35 Piperacillin-Tazobactam 3 150 25 .375 gm In Sodium Chloride 0.9% 100 ml @ 25 mls/hr IVPB Q8H [facility] Rx#: [id number] Sodium Chloride 0.9% 1, 360 120 10 000 ml @ 75 mls/hr IV . [id number] [facility] Rx#:[id number] Oral 700 Blood Product 620 310 Rc As-1 Unit 310 [id number] Rc As-1 Unit 310 [id number] Output: Drainage 70 Left Groin 50 Right Groin 20 Urine 1115 2535 225 Other: Voiding Method Indwelling Catheter Indwelling Catheter # Bowel Movements 2 1 - Constitutional General appearance: Present: no acute distress - Respiratory Respiratory: bilateral: diminished - Cardiovascular Rhythm: regular - Labs CBC & Chem 7: 05/03/22 05:23 05/03/22 05:23 Labs: Abnormal Lab Results - Last 24 Hours (Table) 05/02/22 05/02/22 05/02/22 Range/Units 06:46 11:21 12:24 RBC 2.52 L (4.30-5.90) m/uL Hgb 7.9 L (13.0-17.5) gm/dL Hct 24.2 L (39.0-53.0) % Chloride (98-107) mmol/L BUN (9-20) mg/dL Glucose (74-99) mg/dL POC Glucose (mg/dL) 275 H (70-110) mg/dL Calcium (8.4-10.2) mg/dL Crossmatch See Detail 05/02/22 05/02/22 05/02/22 Range/Units 16:24 18:09 21:20 RBC 2.19 L (4.30-5.90) m/uL Hgb 6.9 L* (13.0-17.5) gm/dL Hct 21.2 L (39.0-53.0) % Chloride (98-107) mmol/L BUN (9-20) mg/dL Glucose (74-99) mg/dL POC Glucose (mg/dL) 286 H 315 H (70-110) mg/dL Calcium (8.4-10.2) mg/dL Crossmatch 05/02/22 05/03/22 05/03/22 Range/Units 21:35 05:23 05:23 RBC 2.60 L (4.30-5.90) m/uL Hgb 8.3 L (13.0-17.5) gm/dL Hct 25.1 L (39.0-53.0) % Chloride 117 H (98-107) mmol/L BUN 62 H (9-20) mg/dL Glucose 214 H (74-99) mg/dL POC Glucose (mg/dL) 301 H (70-110) mg/dL Calcium 8.2 L (8.4-10.2) mg/dL Crossmatch 05/03/22 Range/Units 07:03 RBC (4.30-5.90) m/uL Hgb (13.0-17.5) gm/dL Hct (39.0-53.0) % Chloride (98-107) mmol/L BUN (9-20) mg/dL Glucose (74-99) mg/dL POC Glucose (mg/dL) 264 H (70-110) mg/dL Calcium (8.4-10.2) mg/dL Crossmatch Microbiology - Last 24 Hours (Table) 04/30/22 07:45 Blood Culture Gram Stain - Preliminary Blood Blood Culture - Preliminary Pseudomonas aeruginosa 04/30/22 08:00 Blood Culture - Preliminary Blood No Growth after 48 hours Assessment and Plan Assessment: Assessment Status post abdominal wall hernia repair Paroxysmal atrial fibrillation Anemia, related to blood loss Multiple comorbid conditions Plan Increase the dose of metoprolol Hold on any anticoagulation in the light of anemia related to bleeding Follow-up with the pt
--- NOTE | 2022-05-03 10:53 | P.PN ---
Subjective Progress Note Date: 05/03/22 Principal diagnosis: Respiratory failure. Pulmonary consult dated 04/30/2022. 71-year-old male with history of COPD, diabetes, and sleep apnea, who presented to the emergency department on April 30, 720 in the morning, with mental status changes, and we. The patient was discharged from [facility], on the . He had surgery by Dr. Loredo on April 28. The patient came back into the hospital, at 6:00 this morning. He apparently was found to be profoundly weak at home, according to his , with diarrhea, lethargy, somnolence, and inability to care for himself. The patient is seen in the emergency department, and is currently on BiPAP, with settings of 10/5 and 35%. The patient's getting saline at 150 mL an hour. His primary care provider is Dr. Garcia, and he also sees my partner, Dr. Kraus for COPD. He does use oxygen at home, and also has a home nebulizer machine. On April 28, the patient underwent an abdominal wall reconstruction with myocutaneous bilateral flap advancement, and a panniculectomy. The patient was anxious to be discharged from the hospital, and petitioned the surgeon, and was discharged on April 29. He came back in later that day, at 7 PM, but after waiting for 4 or 5 hours, decided to go home. They came back into the hospital on the morning of the , at 6 AM. White count 16.3, hemoglobin 10.4, hematocrit 32.5, and platelet count 225,000. Blood gases show pO2 of 98, pCO2 of 62, and a pH of 7.20. That was on 35% oxygen. Sodium 139, potassium 5.3, chlorides 107, CO2 25, BUN 75, and creatinine 2.77. Troponin was 0.044 and 0.051. N-terminal proBNP was 593. Progress note dated 05/01/2022. 71-year-old male with history of COPD, diabetes, and sleep apnea, who was seen in the emergency department yesterday. He apparently was admitted with mental status changes. The patient was discharged from [facility] on April 29, after having a surgery done by Dr. Loredo, the day prior. The patient was admitted to the floor, and then was moved to the intensive care unit, overnight, because of worsening respiratory distress, and low blood pressure. I gave the order to start him on some norepinephrine, but the patient never needed to be started on norepinephrine. Currently, he's on 4 L nasal cannula. He is awake and alert. He did use BiPAP throughout the night, with settings of 10/5 and 35%. Today's postop day #3. The blood cultures showed evidence of gram-negative bacilli. They have yet to be identified. He is currently on Zosyn. White count 9.4, hemoglobin 9.7, hematocrit 30.6, and platelet count 253,000. Sodium 141, potassium 4.9, chlorides 114, CO2 19, BUN 84, and creatinine 2.70. Cortisol level was 24. Blood cultures are showing evidence of Pseudomonas aeruginosa. Sensitivities are currently pending. Progress note dated 05/02/2022. 71-year-old male seen in consultation 2 days ago. The patient is seen again in the intensive care unit, room 252. The patient's on 4 L of oxygen. He is getting saline at 75 mL an hour. He is getting 1 unit of packed red blood cells. The patient apparently is been having some dark diarrhea, and coffee- ground emesis. Also, the patient appears to be stable. Lab work includes a white count 10.2, hemoglobin 7.9, hematocrit 24.2, and a platelet count is normal. Sodium 143, potassium 4.4, chlorides 117, CO2 24, BUN 72, and creatin ine 1.5. Calcium 7.6. Blood cultures were positive for pseudomonas aeruginosa. The patient remains on Zosyn. Progress note dated 05/03/2022. 71-year-old male seen again today in room 252. The patient's currently on 4 L of oxygen. Getting saline at KVO. The patient's received a total of 2 units of packed red blood cells. The patient did bring in his home CPAP device, and used it last night. The patient can be transferred to the general medical floor, without telemetry. Blood cultures are positive for Pseudomonas. He is currently on Zosyn. Sensitivities are currently pending. White count 7.5, hemoglobin 8.3, hematocrit 25.1, with a normal platelet count. Sodium 143, potassium 4.4, chlorides 117, CO2 22, BUN 62, and creatinine 1.10. Objective - Vital Signs Vital signs: Vital Signs Temp 97.9 F 05/03/22 08:00 Pulse 106 H 05/03/22 09:00 Resp 21 05/03/22 09:00 BP 129/97 05/03/22 09:00 Pulse Ox 96 05/03/22 09:00 FiO2 21 05/02/22 19:19 Intake & Output 05/02/22 05/03/22 05/03/22 18:59 06:59 18:59 Intake Total 1680 580 35 Output Total 1115 2605 225 Balance 56190 Weight 125.5 kg Intake: IV 360 270 35 Piperacillin-Tazobactam 3 150 25 .375 gm In Sodium Chloride 0.9% 100 ml @ 25 mls/hr IVPB Q8H WILLIAM Rx#: [id number] Sodium Chloride 0.9% 1, 360 120 10 000 ml @ 75 mls/hr IV . [id number] WILLIAM Rx#:[id number] Oral 700 Blood Product 620 310 Rc As-1 Unit 310 [id number] Rc As-1 Unit 310 [id number] Output: Drainage 70 Left Groin 50 Right Groin 20 Urine 1115 2535 225 Other: Voiding Method Indwelling Catheter Indwelling Catheter # Bowel Movements 2 1 - Exam No acute distress, awake and alert, currently on 4 L of oxygen. HEENT examination is grossly unremarkable. Neck supple. Full range of motion. No adenopathy thyromegaly or neck vein distention. Cardiovascular examination reveals regular rhythm rate. S1-S2 normal. No S3 or S4. No discernible murmur noted. Heart sounds are distant. Heart rate 98 bpm. Lungs reveal scattered bilateral rhonchi. No wheezes. No crackles. Breath sounds are equal bilaterally. Saturations are 96 % on 4 L of oxygen. Abdomen soft, without bowel sounds. Abdomen obese. Drains are noted at the lower portion of the abdomen. Extremities are intact. No cyanosis or clubbing. Trace edema noted. Skin is without rash or lesion. Neurologic examination reveals the patient to be awake and alert. - Labs CBC & Chem 7: 05/03/22 05:23 05/03/22 05:23 Labs: Abnormal Lab Results - Last 24 Hours (Table) 05/02/22 05/02/22 05/02/22 Range/Units 06:46 11:21 12:24 RBC 2.52 L (4.30-5.90) m/uL Hgb 7.9 L (13.0-17.5) gm/dL Hct 24.2 L (39.0-53.0) % Chloride (98-107) mmol/L BUN (9-20) mg/dL Glucose (74-99) mg/dL POC Glucose (mg/dL) 275 H (70-110) mg/dL Calcium (8.4-10.2) mg/dL Crossmatch See Detail 05/02/22 05/02/22 05/02/22 Range/Units 16:24 18:09 21:20 RBC 2.19 L (4.30-5.90) m/uL Hgb 6.9 L* (13.0-17.5) gm/dL Hct 21.2 L (39.0-53.0) % Chloride (98-107) mmol/L BUN (9-20) mg/dL Glucose (74-99) mg/dL POC Glucose (mg/dL) 286 H 315 H (70-110) mg/dL Calcium (8.4-10.2) mg/dL Crossmatch 05/02/22 05/03/22 05/03/22 Range/Units 21:35 05:23 05:23 RBC 2.60 L (4.30-5.90) m/uL Hgb 8.3 L (13.0-17.5) gm/dL Hct 25.1 L (39.0-53.0) % Chloride 117 H (98-107) mmol/L BUN 62 H (9-20) mg/dL Glucose 214 H (74-99) mg/dL POC Glucose (mg/dL) 301 H (70-110) mg/dL Calcium 8.2 L (8.4-10.2) mg/dL Crossmatch 05/03/22 Range/Units 07:03 RBC (4.30-5.90) m/uL Hgb (13.0-17.5) gm/dL Hct (39.0-53.0) % Chloride (98-107) mmol/L BUN (9-20) mg/dL Glucose (74-99) mg/dL POC Glucose (mg/dL) 264 H (70-110) mg/dL Calcium (8.4-10.2) mg/dL Crossmatch Microbiology - Last 24 Hours (Table) 04/30/22 08:00 Blood Culture - Preliminary Blood No Growth after 72 hours 04/30/22 07:45 Blood Culture Gram Stain - Preliminary Blood Blood Culture - Preliminary Pseudomonas aeruginosa Assessment and Plan Assessment: Postop day #5, status post abdominal wall reconstruction with myocutaneous bilateral flap advancement, and panniculectomy. 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 Rule out non-ST segment elevation myocardial infarction. Pseudomonas aeruginosa bacteremia. History of COPD. Obesity. History of diabetes mellitus. History of sleep apnea syndrome. History of CVA. History of hyperlipidemia. History of hypertension. History of osteoarthritis. History of BPH. Plan: Plan dated 04/30/2022. The patient's blood gases are typical of somebody with alveolar hypoventilation from excess narcotics. The patient does use hydrocodone at home and may have taken too many. His states that she is one who gives him his medication. Patient has been seen by the surgeon. I saw the patient down in the emergency department. Labs, x-rays, and medications are reviewed. The patient be admitted to the monitored floor. Cardiology should be asked to see the patient. Additional recommendations and suggestions are forthcoming. Prognosis is guarded. The patient is a DO NOT RESUSCITATE patient. Plan dated 05/01/2022. The patient is doing much better today than he was yesterday. He is much more awake and alert. He never required norepinephrine for blood pressure support. The patient's currently on blood cultures were positive for pseudomonas aeruginosa. The patient remains on Zosyn. Additional recommendations and suggestions are forthcoming. We will await the sensitivities. Labs, x-rays, and medications are reviewed. Prognosis is guarded. The patient is a DO NOT RESUSCITATE patient. Plan dated 05/02/2022. Currently, the patient is doing much better. He remains on Zosyn. Blood cultures are positive for pseudomonas aeruginosa. Labs, x-rays, medications are heard. The patient is much more awake and alert. He sitting up in a chair next to the bed. He continues on 4 L of oxygen. Labs, x-rays, medications are reviewed. Prognosis is guarded. The patient is a DO NOT RESUSCITATE patient. Plan dated 05/03/2022. The patient is seen today in room 252. The patient continues to show gradual improvement. The patient is on 4 L of oxygen. No respiratory distress or difficulty. The patient's IVs 0.90 KVO. The patient can be transferred to the general medical floor without telemetry. Labs, x-rays, and medications are reviewed. The patient continues to improve. He is receiving Zosyn for pseudomonas in the bloodstream. Sensitivities are pending. Time with Patient: Less than 30
[2022-05-03] MEDS ORDERED: FUROSEMIDE 10 MG/ML 4 ML VIAL IV STA (10:54)
[2022-05-03] MEDS: INSULIN DETEMIR (LEVEMIR) 100 UNIT/ML SYR SQ SCH (11:08)
--- NOTE | 2022-05-03 11:26 | P.PN ---
Subjective Patient is seen in follow-up for acute kidney injury. Renal function improving. Nonoliguric. Hemoglobin improved. Received a unit of blood yesterday. No vomiting today. Blood pressure stable. Vital signs are stable. General: No acute distress. HEENT: Head exam is unremarkable. On nasal cannula. LUNGS: Breath sounds decreased. HEART: Rate and Rhythm are regular. ABDOMEN: Soft, no tenderness. EXTREMITITES: 1+ edema. Objective - Vital Signs Vital signs: Vital Signs Temp 97.9 F 05/03/22 08:00 Pulse 96 05/03/22 11:12 Resp 20 05/03/22 11:00 BP 134/76 05/03/22 11:00 Pulse Ox 99 05/03/22 11:00 FiO2 21 05/02/22 19:19 Intake & Output 05/02/22 05/03/22 05/03/22 18:59 06:59 18:59 Intake Total 1680 580 165 Output Total 1115 2605 1665 Balance 565 -2024 -1500 Weight 125.5 kg Intake: IV 360 270 65 Piperacillin-Tazobactam 3 150 25 .375 gm In Sodium Chloride 0.9% 100 ml @ 25 mls/hr IVPB Q8H WILL[facility] Rx#: [id number] Sodium Chloride 0.9% 1, 360 120 40 000 ml @ 75 mls/hr IV . [id number] WILL[facility] Rx#:[id number] Intake, IV Titration 100 Amount Sodium Ferric Gluconat- 100 Sucrose 125 mg In Sodium Chloride 0.9% 100 ml @ 100 mls/hr IVPB DAILY WILLIAM Rx#:[id number] Oral 700 Blood Product 620 310 Rc As-1 Unit 310 [id number] Rc As-1 Unit 310 [id number] Output: Drainage 70 Left Groin 50 Right Groin 20 Urine 1115 2535 1665 Other: Voiding Method Indwelling Catheter Indwelling Catheter Indwelling Catheter # Bowel Movements 2 1 1 - Labs CBC & Chem 7: 05/03/22 05:23 05/03/22 05:23 Labs: Abnormal Lab Results - Last 24 Hours (Table) 05/02/22 05/02/22 05/02/22 Range/Units 06:46 12:24 16:24 RBC 2.52 L (4.30-5.90) m/uL Hgb 7.9 L (13.0-17.5) gm/dL Hct 24.2 L (39.0-53.0) % Chloride (98-107) mmol/L BUN (9-20) mg/dL Glucose (74-99) mg/dL POC Glucose (mg/dL) 286 H (70-110) mg/dL Calcium (8.4-10.2) mg/dL Crossmatch See Detail 05/02/22 05/02/22 05/02/22 Range/Units 18:09 21:20 21:35 RBC 2.19 L (4.30-5.90) m/uL Hgb 6.9 L* (13.0-17.5) gm/dL Hct 21.2 L (39.0-53.0) % Chloride (98-107) mmol/L BUN (9-20) mg/dL Glucose (74-99) mg/dL POC Glucose (mg/dL) 315 H 301 H (70-110) mg/dL Calcium (8.4-10.2) mg/dL Crossmatch 05/03/22 05/03/22 05/03/22 Range/Units 05:23 05:23 07:03 RBC 2.60 L (4.30-5.90) m/uL Hgb 8.3 L (13.0-17.5) gm/dL Hct 25.1 L (39.0-53.0) % Chloride 117 H (98-107) mmol/L BUN 62 H (9-20) mg/dL Glucose 214 H (74-99) mg/dL POC Glucose (mg/dL) 264 H (70-110) mg/dL Calcium 8.2 L (8.4-10.2) mg/dL Crossmatch Microbiology - Last 24 Hours (Table) 04/30/22 08:00 Blood Culture - Preliminary Blood No Growth after 72 hours 04/30/22 07:45 Blood Culture Gram Stain - Preliminary Blood Blood Culture - Preliminary Pseudomonas aeruginosa Assessment and Plan Plan: Assessment: 1. Acute kidney injury secondary to hemodynamic ATN. Baseline creatinine near 1 and was 2.77 on admission - 1.1 today. Nonoliguric. No hydronephrosis noted on CAT scan. Left kidney smaller in size. UA benign. 2. Status post abdominal wall reconstruction and panniculectomy on 04/28/2022. 3. Hyperkalemia secondary to acute kidney injury and hyperglycemia. Resolved. 4. Diabetes mellitus. 5. Metabolic acidosis secondary to acute kidney injury and IV fluids. On oral bicarb. 6. Pseudomonas aeruginosa bacteremia on abx. ID following. 7. GI bleed status post blood transfusion this admission. Hemoglobin 8.3 today. 8. Volume overload. Plan: Lasix 40 mg IV once today. Avoid nephrotoxins. Continue to monitor renal function and urine output.
[2022-05-03 12:43] LABS: HCT 25.2 % (39.0-53.0); HGB 8.2 gm/dL (13.0-17.5); Hypochromasia Moderate; MCHC 32.4 g/dL (31.0-37.0); MCV 95.6 fL (80.0-100.0); Mean Platelet Volume 8.3; Platelet Count 172 k/uL (150-450); Poikilocytosis Slight; RBC 2.64 m/uL (4.30-5.90); RDW 15.9 % (11.5-15.5); WBC 9.4 k/uL (3.8-10.6)
[2022-05-03 13:11] LABS: Glucose,Whole Blood 255 mg/dL (70-110)
--- NOTE | 2022-05-03 14:57 | P.PN ---
Subjective Progress Note Date: 05/03/22 - Reason for Consult Consult date: 05/01/22 hypotension - History of Present Illness Gene Zuleta is a 71-year-old male with a past medical history significant for COPD, T2DM, recent abdominal wall reconstruction with panniculectomy on 04/28. He states he was discharged home and becoame progressively more weak and family noticed him becoming slow to respond so presented back to the hospital 04/30/2022. He denies chest pain or shortness of breath, denies abdominal pain no nausea vomiting or diarrhea. On presentation pt afebrile, hypercapneic and treated with BIPAP. WBC 16.3, procalcitonin elevated. CXR no acute process, abdominal CT subcutaneous air bubbles with fluid and drainage tubes. 05/03/[address] Sebastian Garcia Patient is seen in the ICU currently a downgrade and working on a MedSur bed. Patient is status post panniculectomy with multiple medical consultations following. Patient looks well sitting up and continues with some lower extremity edema noted. Blood cultures were positive and patient is continued on IV Zosyn with infectious disease following as well.. Patient continues on 4 L via nasal cannula and reports he does not normally wear oxygen and also given a dose of IV Lasix today for his generalized edema. Patient is continued on sodium bicarb tablets and has remained off pressors support. Patient also with elevated blood sugars and continued on sliding scale and will add long-acting and recommend monitor Accu-Cheks before meals and at bedtime. Patient also receiving IV iron with nephrology following closely. Patient to continue with DuoNeb treatments as well. Patient denies chest pain or worsening shortness of breath. Patient is afebrile and reports is tolerating diet. Review of systems: Constitutional: No reports of fatigue, fever, or chills Cardiovascular: No reports of chest pain or palpitations Respiratory: No reports of worsening shortness of breath or cough GI: No reports of nausea, vomiting, or diarrhea : No reports of dysuria or retention Neurovascular: reports of generalized weakness and some lower extremity swelling All medications have been reviewed Active Medications Hydrocodone Bitart/Acetaminophen (Hydrocodone/Apap 10-325mg 1 Each Tab) 1 each PO TID PRN PRN Reason: Pain Albuterol/Ipratropium (Ipratropium-Albuterol 3 Ml Neb) 3 ml INHALATION RT-QID [facility] Last Admin: 05/03/22 05:37 Dose: 3 ml Albuterol/Ipratropium (Ipratropium-Albuterol 3 Ml Neb) 3 ml INHALATION RT-Q2H PRN PRN Reason: Shortness Of Breath Or Wheezing Gabapentin (Gabapentin 400 Mg Cap) 800 mg PO TID [facility] Last Admin: 05/03/22 08:43 Dose: 800 mg Norepinephrine Bitartrate 4 mg (/ Sodium Chloride) 254 mls @ 12.184 mls/hr IV .[id number] [facility]; Protocol Last Admin: 05/02/22 18:16 Dose: Not Given Piperacillin Sod/Tazobactam (Sod 3.375 gm/ Sodium Chloride) 100 mls @ 25 mls/hr IVPB Q8H [facility]; Protocol Last Admin: 05/03/22 05:20 Dose: 25 mls/hr Ferric Sodium Gluconate 125 mg (/ Sodium Chloride) 110 mls @ 100 mls/hr IVPB DAILY [facility] Stop: 05/04/22 10:05 Last Admin: 05/03/22 08:42 Dose: 100 mls/hr Insulin Aspart (Insulin Aspart (Novolog) 100 Unit/Ml Vial) 0 unit SQ ACHS [facility]; Protocol Last Admin: 05/03/22 07:11 Dose: 6 unit Metoprolol Tartrate (Metoprolol Tartrate 25 Mg Tab) 25 mg PO TID [facility] Last Admin: 05/03/22 08:43 Dose: 25 mg Naloxone HCl (Naloxone 0.4 Mg/Ml 1 Ml Vial) 0.2 mg IV Q2M PRN PRN Reason: Opioid Reversal Pantoprazole Sodium (Pantoprazole 40 Mg/10 Ml Vial) 40 mg IVP BID [facility] Last Admin: 05/03/22 08:42 Dose: 40 mg Sodium Bicarbonate (Sodium Bicarbonate Tab 650 Mg Tab) 650 mg PO BID [facility] Last Admin: 05/03/22 08:42 Dose: 650 mg Tamsulosin HCl (Tamsulosin 0.4 Mg Cap.Er.24h) 0.4 mg PO BID [facility] Last Admin: 05/03/22 08:43 Dose: 0.4 mg Gen: This is a 71-year-old male who is awake, alert and oriented 3, well- developed, well-nourished, obese HEENT: Head is atraumatic, normocephalic. Pupils equal, round. Sclerae is anicteric. NECK: Supple. No JVD. No lymphadenopathy. No thyromegaly. LUNGS: Diminished breath sounds bilaterally with no wheezes or rhonchi. No intercostal retractions. HEART: Regular rate and rhythm. No murmur. ABDOMEN: Soft. Obese, tender with abdominal binder noted Bowel sounds are present. No masses. No tenderness. EXTREMITIES: No pedal edema. No calf tenderness. Bilateral lower extremity edema noted NEUROLOGICAL: Patient is awake, alert and oriented x3. Cranial nerves 2 through 12 are grossly intact. Diffusely weak Assessment: Status post abdominal wall reconstruction with myocutaneous bilateral flap advancement and panniculectomy him a postop day #5 Acute hypoxic and hypercapneic respiratory failure possibly secondary to narcotics History of COPD, not in exacerbation history of sleep apnea syndrome uses a CPAP History of CVA Hypertension history Hyperlipidemia History of osteoarthritis History of BPH Severe Sepsis. With psuedomonas bacteremia. Diabetes type 2, uncontrolled with hyperglycemia GI prophylaxis DVT prophylaxis No code Plan: Recommend continue with current medications and management with general surgery as admitting. Multiple medical consultations following including infectious disease and patient is maintained on IV Zosyn for bacteremia Pseudomonas Patient is currently maintained on 4 L via nasal cannula using his CPAP at night and will wean FiO2 as tolerated Recommend incentive spirometer and continue use at least 10 times every hour while awake Recommend Accu-Cheks before meals and at bedtime and continue with sliding scale and will add low-dose long-acting his blood sugars have been elevated Hemoglobin is stable at 8.3 and recommend monitor closely status post 1 unit of PRBCs yesterday recommend follow-up labs Patient is a downgrade from the ICU and will be transferred to the [facility] and we will continue to follow with surgery during hospitalization Thank you for this consultation. The impression and plan of care has been dictated by Shelbi Pillai, Nurse Practitioner as directed. MD Hair I have performed a history and examination and MDM of this patient, discussed the same with the dictator, and agree with the dictator's assessment and plan as written ,documented as a scribe. Based on total visit time, I have performed more than 50% of the visit. Objective - Vital Signs Vital signs: Vital Signs Temp 97.9 F 05/03/22 08:00 Pulse 106 H 05/03/22 09:00 Resp 21 05/03/22 09:00 BP 129/97 05/03/22 09:00 Pulse Ox 96 05/03/22 09:00 FiO2 21 05/02/22 19:19 Intake & Output 05/02/22 05/03/22 05/03/22 18:59 06:59 18:59 Intake Total 1680 580 35 Output Total 1115 2605 225 Balance 565 190 Weight 125.5 kg Intake: IV 360 270 35 Piperacillin-Tazobactam 3 150 25 .375 gm In Sodium Chloride 0.9% 100 ml @ 25 mls/hr IVPB Q8H [facility] Rx#: [id number] Sodium Chloride 0.9% 1, 360 120 10 000 ml @ 75 mls/hr IV . [id number] [facility] Rx#:[id number] Oral 700 Blood Product 620 310 Rc As-1 Unit 310 [id number] Rc As-1 Unit 310 [id number] Output: Drainage 70 Left Groin 50 Right Groin 20 Urine 1115 2535 225 Other: Voiding Method Indwelling Catheter Indwelling Catheter # Bowel Movements 2 1 - Labs CBC & Chem 7: 05/03/22 11:55 05/03/22 05:23 Labs: Abnormal Lab Results - Last 24 Hours (Table) 05/02/22 05/02/22 05/02/22 Range/Units 06:46 11:21 12:24 RBC 2.52 L (4.30-5.90) m/uL Hgb 7.9 L (13.0-17.5) gm/dL Hct 24.2 L (39.0-53.0) % Chloride (98-107) mmol/L BUN (9-20) mg/dL Glucose (74-99) mg/dL POC Glucose (mg/dL) 275 H (70-110) mg/dL Calcium (8.4-10.2) mg/dL Crossmatch See Detail 05/02/22 05/02/22 05/02/22 Range/Units 16:24 18:09 21:20 RBC 2.19 L (4.30-5.90) m/uL Hgb 6.9 L* (13.0-17.5) gm/dL Hct 21.2 L (39.0-53.0) % Chloride (98-107) mmol/L BUN (9-20) mg/dL Glucose (74-99) mg/dL POC Glucose (mg/dL) 286 H 315 H (70-110) mg/dL Calcium (8.4-10.2) mg/dL Crossmatch 05/02/22 05/03/22 05/03/22 Range/Units 21:35 05:23 05:23 RBC 2.60 L (4.30-5.90) m/uL Hgb 8.3 L (13.0-17.5) gm/dL Hct 25.1 L (39.0-53.0) % Chloride 117 H (98-107) mmol/L BUN 62 H (9-20) mg/dL Glucose 214 H (74-99) mg/dL POC Glucose (mg/dL) 301 H (70-110) mg/dL Calcium 8.2 L (8.4-10.2) mg/dL Crossmatch 05/03/22 Range/Units 07:03 RBC (4.30-5.90) m/uL Hgb (13.0-17.5) gm/dL Hct (39.0-53.0) % Chloride (98-107) mmol/L BUN (9-20) mg/dL Glucose (74-99) mg/dL POC Glucose (mg/dL) 264 H (70-110) mg/dL Calcium (8.4-10.2) mg/dL Crossmatch Microbiology - Last 24 Hours (Table) 04/30/22 07:45 Blood Culture Gram Stain - Preliminary Blood Blood Culture - Preliminary Pseudomonas aeruginosa 04/30/22 08:00 Blood Culture - Preliminary Blood No Growth after 48 hours
[2022-05-03] MEDS: NOREPINEPHRINE 4 MG in SODIUM CHLORIDE 0.9% 250 ML IV SCH (16:57)
[2022-05-03 17:43] LABS: Glucose,Whole Blood 339 mg/dL (70-110)
--- NOTE | 2022-05-03 19:52 | P.PN ---
Subjective Progress Note Date: 05/03/22 Patient denies any moderate abdominal pain. He continues to have dark, foul smelling stool that is loose. Protonix ordered for possible GI bleed. Stool cultures sent and pending. High protein diet advised. Objective - Vital Signs Vital signs: Vital Signs Temp 97.9 F 05/03/22 08:00 Pulse 90 05/03/22 15:46 Resp 20 05/03/22 11:00 BP 134/76 05/03/22 11:00 Pulse Ox 99 05/03/22 11:00 FiO2 21 05/02/22 19:19 Intake & Output 05/03/22 05/03/22 05/04/22 06:59 18:59 06:59 Intake Total 580 265 Output Total 2605 4065 Balance -2024 Weight 125.5 kg Intake: IV 270 165 Piperacillin-Tazobactam 3 150 125 .375 gm In Sodium Chloride 0.9% 100 ml @ 25 mls/hr IVPB Q8H [facility] Rx#: [id number] Sodium Chloride 0.9% 1, 120 40 000 ml @ 75 mls/hr IV . [id number] [facility] Rx#:[id number] Intake, IV Titration 100 Amount Sodium Ferric Gluconat- 100 Sucrose 125 mg In Sodium Chloride 0.9% 100 ml @ 100 mls/hr IVPB DAILY [facility] Rx#:[id number] Blood Product 310 Rc As-1 Unit 310 [id number] Output: Drainage 70 Left Groin 50 Right Groin 20 Urine 2535 4065 Other: Voiding Method Indwelling Catheter Indwelling Catheter # Bowel Movements 1 1 - Labs CBC & Chem 7: 05/03/22 11:55 05/03/22 05:23 Labs: Abnormal Lab Results - Last 24 Hours (Table) 05/02/22 05/02/22 05/02/22 Range/Units 06:46 21:20 21:35 RBC (4.30-5.90) m/uL Hgb (13.0-17.5) gm/dL Hct (39.0-53.0) % RDW (11.5-15.5) % Chloride (98-107) mmol/L BUN (9-20) mg/dL Glucose (74-99) mg/dL POC Glucose (mg/dL) 315 H 301 H (70-110) mg/dL Calcium (8.4-10.2) mg/dL Crossmatch See Detail 05/03/22 05/03/22 05/03/22 Range/Units 05:23 05:23 07:03 RBC 2.60 L (4.30-5.90) m/uL Hgb 8.3 L (13.0-17.5) gm/dL Hct 25.1 L (39.0-53.0) % RDW (11.5-15.5) % Chloride 117 H (98-107) mmol/L BUN 62 H (9-20) mg/dL Glucose 214 H (74-99) mg/dL POC Glucose (mg/dL) 264 H (70-110) mg/dL Calcium 8.2 L (8.4-10.2) mg/dL Crossmatch 05/03/22 05/03/22 05/03/22 Range/Units 11:55 13:05 17:38 RBC 2.64 L (4.30-5.90) m/uL Hgb 8.2 L (13.0-17.5) gm/dL Hct 25.2 L (39.0-53.0) % RDW 15.9 H (11.5-15.5) % Chloride (98-107) mmol/L BUN (9-20) mg/dL Glucose (74-99) mg/dL POC Glucose (mg/dL) 255 H 339 H (70-110) mg/dL Calcium (8.4-10.2) mg/dL Crossmatch Microbiology - Last 24 Hours (Table) 04/30/22 07:45 Blood Culture Gram Stain - Final Blood Blood Culture - Final Pseudomonas aeruginosa 04/30/22 08:00 Blood Culture - Preliminary Blood No Growth after 72 hours
[2022-05-03 21:01] LABS: Glucose,Whole Blood 258 mg/dL (70-110)
[2022-05-03] MEDS: METOPROLOL TARTRATE 50 MG TAB PO SCH (21:52)
[2022-05-04] MEDS: PIPERACILLIN-TAZOBACTAM 3.375 GM in SODIUM CHLORIDE 0.9% 100 ML IVPB SCH ×3 (05:29→22:02)
[2022-05-04 07:38] LABS: Basophils % (A) 0 %; Eosinophils # (A) 0.4 k/uL (0-0.7); Eosinophils % (A) 6 %; HCT 24.1 % (39.0-53.0); Hypochromasia Slight; Lymphocytes # (A) 1.1 k/uL (1.0-4.8); Lymphocytes % (A) 16 %; MCH 30.7 pg (25.0-35.0); MCHC 33.1 g/dL (31.0-37.0); MCV 92.9 fL (80.0-100.0); Mean Platelet Volume 8.2; Monocytes # (A) 0.4 k/uL (0-1.0); Monocytes % (A) 6 %; Neutrophils # (A) 4.9 k/uL (1.3-7.7); Neutrophils % (A) 69 %; Platelet Count 165 k/uL (150-450); Poikilocytosis Slight; RBC 2.59 m/uL (4.30-5.90); RDW 15.6 % (11.5-15.5)
[2022-05-04 07:47] LABS: African American GFR (CKD) >90 (>60 ml/min/1.73 sqM); Anion Gap 0 mmol/L; Blood Urea Nitrogen 36 mg/dL (9-20); Calcium 8.2 mg/dL (8.4-10.2); Carbon Dioxide 29 mmol/L (22-30); Chloride 113 mmol/L (98-107); Glucose 188 mg/dL (74-99); Non-African American GFR(CKD) 82 (>60 ml/min/1.73 sqM); Sodium 142 mmol/L (137-145)
[2022-05-04] MEDS: IPRATROPIUM-ALBUTEROL 3 ML NEB INHALATION SCH ×4 (08:02→19:18)
[2022-05-04 08:04] LABS: Glucose,Whole Blood 203 mg/dL (70-110)
[2022-05-04] MEDS: INSULIN DETEMIR (LEVEMIR) 100 UNIT/ML SYR SQ SCH (08:48)
[2022-05-04] MEDS: INSULIN ASPART (NovoLOG) 100 UNIT/ML VIAL SQ SCH ×4 (08:49→22:01)
[2022-05-04] MEDS: TAMSULOSIN 0.4 MG CAP.ER.24H PO SCH ×2 (08:52→22:02)
[2022-05-04] MEDS: SODIUM FERRIC GLUCONAT-SUCROSE 125 MG in SODIUM CHLORIDE 0.9% 100 ML IVPB SCH (08:52)
[2022-05-04] MEDS: SODIUM BICARBONATE TAB 650 MG TAB PO SCH ×2 (08:52→22:02)
[2022-05-04] MEDS: PANTOPRAZOLE 40 MG/10 ML VIAL IVP SCH ×2 (08:52→22:03)
[2022-05-04] MEDS: GABAPENTIN 400 MG CAP PO SCH ×3 (08:52→22:01)
[2022-05-04] MEDS: METOPROLOL TARTRATE 50 MG TAB PO SCH ×3 (08:52→22:02)
[2022-05-04] MEDS: HYDROcodone/APAP 10-325MG 1 EACH TAB PO PRN ×2 (09:08→16:46)
[2022-05-04] MEDS: NOREPINEPHRINE 4 MG in SODIUM CHLORIDE 0.9% 250 ML IV SCH (10:40)
--- NOTE | 2022-05-04 10:41 | P.PN ---
Subjective Progress Note Date: 05/04/22 Principal diagnosis: Paroxysmal atrial fibrillation The patient is a 71-year-old gentleman with a past medical history significant for obesity and sleep apnea and hypertension and dyslipidemia who was admitted to the hospital and underwent an abdominal hernia surgery. We consulted to see the patient because of paroxysmal atrial fibrillation. Apparently during his hospital stay he went into atrial fibrillation with RVR and subsequently converted to normal sinus mechanism. Also he developed gastrointestinal bleeding and he required 2 units of packed RBC. He underwent an echo which revealed normal left ventricle systolic function was no significant valvular abnormalities May [id number] The patient was seen and evaluated this morning. He has been maintaining normal sinus mechanism. He has been hemodynamic be stable. He was started on metoprolol yesterday at 25 mg by mouth 3 times a day which I'm going to increase to 50 mg by mouth twice a day. Hold anticoagulation because of the GI bleeding. May 042022 The patient was evaluated this morning. He is in normal sinus mechanism but he is tachycardic with a resting heart rate of 100 beats per minutes. I'm going to increase the dose of metoprolol to 50 mg by mouth 3 times a day. Anticoagulation are on hold at this point because of the GI bleeding. Objective - Vital Signs Vital signs: Vital Signs Temp 98.0 F 05/04/22 07:55 Pulse 103 H 05/04/22 08:13 Resp 18 05/04/22 07:55 BP 136/77 05/04/22 07:55 Pulse Ox 95 05/04/22 08:05 FiO2 21 05/02/22 19:19 Intake & Output 05/03/22 05/04/22 05/04/22 18:59 06:59 18:59 Intake Total 265 200 Output Total 4065 4200 75 Balance -3800 -4000 -75 Intake: IV 165 200 Piperacillin-Tazobactam 3 125 200 .375 gm In Sodium Chloride 0.9% 100 ml @ 25 mls/hr IVPB Q8H [facility] Rx#: [id number] Sodium Chloride 0.9% 1, 40 000 ml @ 75 mls/hr IV . [id number] [facility] Rx#:[id number] Intake, IV Titration 100 Amount Sodium Ferric Gluconat- 100 Sucrose 125 mg In Sodium Chloride 0.9% 100 ml @ 100 mls/hr IVPB DAILY [facility] Rx#:[id number] Output: Drainage 75 Left Groin 60 Right Groin 15 Urine 4065 4200 Uretheral ([place]) 2100 Other: Voiding Method Indwelling Catheter Indwelling Catheter Urinal Diaper # Bowel Movements 1 1 - Constitutional General appearance: Present: no acute distress - Respiratory Respiratory: bilateral: CTA - Cardiovascular Rhythm: regular - Labs CBC & Chem 7: 05/04/22 07:11 05/04/22 07:11 Labs: Abnormal Lab Results - Last 24 Hours (Table) 05/03/22 05/03/22 05/03/22 Range/Units 11:55 13:05 17:38 RBC 2.64 L (4.30-5.90) m/uL Hgb 8.2 L (13.0-17.5) gm/dL Hct 25.2 L (39.0-53.0) % RDW 15.9 H (11.5-15.5) % Chloride (98-107) mmol/L BUN (9-20) mg/dL Glucose (74-99) mg/dL POC Glucose (mg/dL) 255 H 339 H (70-110) mg/dL Calcium (8.4-10.2) mg/dL C. difficile (EIA) Intrp (Negative) 05/03/22 05/04/22 05/04/22 Range/Units 20:59 04:30 07:11 RBC 2.59 L (4.30-5.90) m/uL Hgb 8.0 L (13.0-17.5) gm/dL Hct 24.1 L (39.0-53.0) % RDW 15.6 H (11.5-15.5) % Chloride (98-107) mmol/L BUN (9-20) mg/dL Glucose (74-99) mg/dL POC Glucose (mg/dL) 258 H (70-110) mg/dL Calcium (8.4-10.2) mg/dL C. difficile (EIA) Intrp Positive A (Negative) 05/04/22 05/04/22 Range/Units 07:11 08:02 RBC (4.30-5.90) m/uL Hgb (13.0-17.5) gm/dL Hct (39.0-53.0) % RDW (11.5-15.5) % Chloride 113 H (98-107) mmol/L BUN 36 H (9-20) mg/dL Glucose 188 H (74-99) mg/dL POC Glucose (mg/dL) 203 H (70-110) mg/dL Calcium 8.2 L (8.4-10.2) mg/dL C. difficile (EIA) Intrp (Negative) Microbiology - Last 24 Hours (Table) 04/30/22 08:00 Blood Culture - Preliminary Blood No Growth after 96 hours 04/30/22 07:45 Blood Culture Gram Stain - Final Blood Blood Culture - Final Pseudomonas aeruginosa Assessment and Plan Assessment: Assessment Status post abdominal wall hernia repair Paroxysmal atrial fibrillation Anemia, related to blood loss Multiple comorbid conditions Plan Increase the dose of metoprolol Hold on any anticoagulation in the light of anemia related to bleeding Follow-up with the pt
--- NOTE | 2022-05-04 10:51 | P.PN ---
Subjective Progress Note Date: 05/04/22 Principal diagnosis: Respiratory failure. Pulmonary consult dated 04/30/2022. 71-year-old male with history of COPD, diabetes, and sleep apnea, who presented to the emergency department on April 30, 720 in the morning, with mental status changes, and we. The patient was discharged from [facility], on the . He had surgery by Dr. Loredo on April 28. The patient came back into the hospital, at 6:00 this morning. He apparently was found to be profoundly weak at home, according to his , with diarrhea, lethargy, somnolence, and inability to care for himself. The patient is seen in the emergency department, and is currently on BiPAP, with settings of 10/5 and 35%. The patient's getting saline at 150 mL an hour. His primary care provider is Dr. Garcia, and he also sees my partner, Dr. Kraus for COPD. He does use oxygen at home, and also has a home nebulizer machine. On April 28, the patient underwent an abdominal wall reconstruction with myocutaneous bilateral flap advancement, and a panniculectomy. The patient was anxious to be discharged from the hospital, and petitioned the surgeon, and was discharged on April 29. He came back in later that day, at 7 PM, but after waiting for 4 or 5 hours, decided to go home. They came back into the hospital on the morning of the , at 6 AM. White count 16.3, hemoglobin 10.4, hematocrit 32.5, and platelet count 225,000. Blood gases show pO2 of 98, pCO2 of 62, and a pH of 7.20. That was on 35% oxygen. Sodium 139, potassium 5.3, chlorides 107, CO2 25, BUN 75, and creatinine 2.77. Troponin was 0.044 and 0.051. N-terminal proBNP was 593. Progress note dated 05/01/2022. 71-year-old male with history of COPD, diabetes, and sleep apnea, who was seen in the emergency department yesterday. He apparently was admitted with mental status changes. The patient was discharged from [facility] on April 29, after having a surgery done by Dr. Loredo, the day prior. The patient was admitted to the floor, and then was moved to the intensive care unit, overnight, because of worsening respiratory distress, and low blood pressure. I gave the order to start him on some norepinephrine, but the patient never needed to be started on norepinephrine. Currently, he's on 4 L nasal cannula. He is awake and alert. He did use BiPAP throughout the night, with settings of 10/5 and 35%. Today's postop day #3. The blood cultures showed evidence of gram-negative bacilli. They have yet to be identified. He is currently on Zosyn. White count 9.4, hemoglobin 9.7, hematocrit 30.6, and platelet count 253,000. Sodium 141, potassium 4.9, chlorides 114, CO2 19, BUN 84, and creatinine 2.70. Cortisol level was 24. Blood cultures are showing evidence of Pseudomonas aeruginosa. Sensitivities are currently pending. Progress note dated 05/02/2022. 71-year-old male seen in consultation 2 days ago. The patient is seen again in the intensive care unit, room 252. The patient's on 4 L of oxygen. He is getting saline at 75 mL an hour. He is getting 1 unit of packed red blood cells. The patient apparently is been having some dark diarrhea, and coffee- ground emesis. Also, the patient appears to be stable. Lab work includes a white count 10.2, hemoglobin 7.9, hematocrit 24.2, and a platelet count is normal. Sodium 143, potassium 4.4, chlorides 117, CO2 24, BUN 72, and creatin ine 1.5. Calcium 7.6. Blood cultures were positive for pseudomonas aeruginosa. The patient remains on Zosyn. Progress note dated 05/03/2022. 71-year-old male seen again today in room 252. The patient's currently on 4 L of oxygen. Getting saline at KVO. The patient's received a total of 2 units of packed red blood cells. The patient did bring in his home CPAP device, and used it last night. The patient can be transferred to the general medical floor, without telemetry. Blood cultures are positive for Pseudomonas. He is currently on Zosyn. Sensitivities are currently pending. White count 7.5, hemoglobin 8.3, hematocrit 25.1, with a normal platelet count. Sodium 143, potassium 4.4, chlorides 117, CO2 22, BUN 62, and creatinine 1.10. Progress note dated 05/04/2022. 71-year-old male seen in room 533. He is doing well. Currently, he's on 2 L of oxygen. He's not receiving any IV fluids. He was transferred out of the intensive care unit yesterday. He denies any difficulty breathing, shortness of breath, cough, or chest pain. White count 7, hemoglobin 8, hematocrit 24.1, and platelet count was normal. Sodium 142, potassium 4, chlorides 113, CO2 29, BUN 36, creatinine 0.94. He did test positive for C. difficile colitis. Blood cultures from April 30 were positive for pseudomonas aeruginosa. It is sensitive to Zosyn. Objective - Vital Signs Vital signs: Vital Signs Temp 98.0 F 05/04/22 07:55 Pulse 103 H 05/04/22 08:13 Resp 18 05/04/22 07:55 BP 136/77 05/04/22 07:55 Pulse Ox 95 05/04/22 08:05 FiO2 21 05/02/22 19:19 Intake & Output 05/03/22 05/04/22 05/04/22 18:59 06:59 18:59 Intake Total 265 200 Output Total 4065 4200 75 Balance -3800 -4000 -75 Intake: IV 165 200 Piperacillin-Tazobactam 3 125 200 .375 gm In Sodium Chloride 0.9% 100 ml @ 25 mls/hr IVPB Q8H [facility] Rx#: [id number] Sodium Chloride 0.9% 1, 40 000 ml @ 75 mls/hr IV . [id number] [facility] Rx#:[id number] Intake, IV Titration 100 Amount Sodium Ferric Gluconat- 100 Sucrose 125 mg In Sodium Chloride 0.9% 100 ml @ 100 mls/hr IVPB DAILY WILLIAM Rx#:[id number] Output: Drainage 75 Left Groin 60 Right Groin 15 Urine 4065 4200 Uretheral ([place]) 2100 Other: Voiding Method Indwelling Catheter Indwelling Catheter Urinal Diaper # Bowel Movements 1 1 - Exam No acute distress, awake and alert, currently on 2 L of oxygen. HEENT examination is grossly unremarkable. Neck supple. Full range of motion. No adenopathy thyromegaly or neck vein distention. Cardiovascular examination reveals regular rhythm rate. S1-S2 normal. No S3 or S4. No discernible murmur noted. Heart sounds are distant. Heart rate 100 bpm. Lungs reveal scattered bilateral rhonchi. No wheezes. No crackles. Breath sounds are equal bilaterally. Saturations are 95% on 2 L of oxygen. Abdomen soft, without bowel sounds. Abdomen obese. Drains are noted at the lower portion of the abdomen. Extremities are intact. No cyanosis or clubbing. Trace edema noted. Skin is without rash or lesion. Neurologic examination reveals the patient to be awake and alert. - Labs CBC & Chem 7: 05/04/22 07:11 05/04/22 07:11 Labs: Abnormal Lab Results - Last 24 Hours (Table) 05/03/22 05/03/22 05/03/22 Range/Units 11:55 13:05 17:38 RBC 2.64 L (4.30-5.90) m/uL Hgb 8.2 L (13.0-17.5) gm/dL Hct 25.2 L (39.0-53.0) % RDW 15.9 H (11.5-15.5) % Chloride (98-107) mmol/L BUN (9-20) mg/dL Glucose (74-99) mg/dL POC Glucose (mg/dL) 255 H 339 H (70-110) mg/dL Calcium (8.4-10.2) mg/dL C. difficile (EIA) Intrp (Negative) 05/03/22 05/04/22 05/04/22 Range/Units 20:59 04:30 07:11 RBC 2.59 L (4.30-5.90) m/uL Hgb 8.0 L (13.0-17.5) gm/dL Hct 24.1 L (39.0-53.0) % RDW 15.6 H (11.5-15.5) % Chloride (98-107) mmol/L BUN (9-20) mg/dL Glucose (74-99) mg/dL POC Glucose (mg/dL) 258 H (70-110) mg/dL Calcium (8.4-10.2) mg/dL C. difficile (EIA) Intrp Positive A (Negative) 05/04/22 05/04/22 Range/Units 07:11 08:02 RBC (4.30-5.90) m/uL Hgb (13.0-17.5) gm/dL Hct (39.0-53.0) % RDW (11.5-15.5) % Chloride 113 H (98-107) mmol/L BUN 36 H (9-20) mg/dL Glucose 188 H (74-99) mg/dL POC Glucose (mg/dL) 203 H (70-110) mg/dL Calcium 8.2 L (8.4-10.2) mg/dL C. difficile (EIA) Intrp (Negative) Microbiology - Last 24 Hours (Table) 04/30/22 08:00 Blood Culture - Preliminary Blood No Growth after 96 hours 04/30/22 07:45 Blood Culture Gram Stain - Final Blood Blood Culture - Final Pseudomonas aeruginosa Assessment and Plan Assessment: Postop day #6, status post abdominal wall reconstruction with myocutaneous bi lateral flap advancement, and panniculectomy. 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 Rule out non-ST segment elevation myocardial infarction. Pseudomonas aeruginosa bacteremia. History of COPD. Obesity. History of diabetes mellitus. History of sleep apnea syndrome. History of CVA. History of hyperlipidemia. History of hypertension. History of osteoarthritis. History of BPH. Plan: Plan dated 04/30/2022. The patient's blood gases are typical of somebody with alveolar hypoventilation from excess narcotics. The patient does use hydrocodone at home and may have taken too many. His states that she is one who gives him his medication. Patient has been seen by the surgeon. I saw the patient down in the emergency department. Labs, x-rays, and medications are reviewed. The patient be admitted to the monitored floor. Cardiology should be asked to see the patient. Additional recommendations and suggestions are forthcoming. Prognosis is guarded. The patient is a DO NOT RESUSCITATE patient. Plan dated 05/01/2022. The patient is doing much better today than he was yesterday. He is much more awake and alert. He never required norepinephrine for blood pressure support. The patient's currently on blood cultures were positive for pseudomonas aeruginosa. The patient remains on Zosyn. Additional recommendations and suggestions are forthcoming. We will await the sensitivities. Labs, x-rays, an d medications are reviewed. Prognosis is guarded. The patient is a DO NOT RESUSCITATE patient. Plan dated 05/02/2022. Currently, the patient is doing much better. He remains on Zosyn. Blood cult ures are positive for pseudomonas aeruginosa. Labs, x-rays, medications are heard. The patient is much more awake and alert. He sitting up in a chair next to the bed. He continues on 4 L of oxygen. Labs, x-rays, medications are reviewed. Prognosis is guarded. The patient is a DO NOT RESUSCITATE patient. Plan dated 05/03/2022. The patient is seen today in room 252. The patient continues to show gradual improvement. The patient is on 4 L of oxygen. No respiratory distress or difficulty. The patient's IVs 0.90 KVO. The patient can be transferred to the general medical floor without telemetry. Labs, x-rays, and medications are reviewed. The patient continues to improve. He is receiving Zosyn for pseudomonas in the bloodstream. Sensitivities are pending. Plan dated 05/04/2022. The patient appears to be doing relatively well. The patient's on appropriate antibiotics for Pseudomonas bacteremia. The patient's on 2 L of oxygen. He is not receiving any IV fluids. Labs, x-rays, and medications are reviewed. We will continue to follow and make recommendations along the way. Prognosis is guarded. Time with Patient: Less than 30
[2022-05-04] MEDS: VANCOMYCIN 125 MG CAPSULE PO SCH ×4 (11:47→22:02)
--- NOTE | 2022-05-04 12:09 | P.PN ---
Subjective Patient is seen in follow-up for acute kidney injury. Renal function improving. Nonoliguric. No significant complaints today Serum creatinine is 0.9 Objective - Vital Signs Vital signs: Vital Signs Temp 98.0 F 05/04/22 07:55 Pulse 91 05/04/22 11:36 Resp 18 05/04/22 07:55 BP 136/77 05/04/22 07:55 Pulse Ox 95 05/04/22 08:05 FiO2 21 05/02/22 19:19 Intake & Output 05/03/22 05/04/22 05/04/22 18:59 06:59 18:59 Intake Total 265 200 Output Total 4065 4200 75 Balance -3800 -4000 -75 Intake: IV 165 200 Piperacillin-Tazobactam 3 125 200 .375 gm In Sodium Chloride 0.9% 100 ml @ 25 mls/hr IVPB Q8H [facility] Rx#: [id number] Sodium Chloride 0.9% 1, 40 000 ml @ 75 mls/hr IV . [id number] WILLIAM Rx#:[id number] Intake, IV Titration 100 Amount Sodium Ferric Gluconat- 100 Sucrose 125 mg In Sodium Chloride 0.9% 100 ml @ 100 mls/hr IVPB DAILY [facility]IAM Rx#:[id number] Output: Drainage 75 Left Groin 60 Right Groin 15 Urine 4065 4200 Uretheral ([place]) 2100 Other: Voiding Method Indwelling Catheter Indwelling Catheter Urinal Diaper # Bowel Movements 1 1 - Exam Awake, comfortable, no acute distress Patient is alert oriented 3 Abdomen is soft nontender Examination lower extremities shows edema 2+ bilaterally - Labs CBC & Chem 7: 05/04/22 07:11 05/04/22 07:11 Labs: Abnormal Lab Results - Last 24 Hours (Table) 05/03/22 05/03/22 05/03/22 Range/Units 11:55 13:05 17:38 RBC 2.64 L (4.30-5.90) m/uL Hgb 8.2 L (13.0-17.5) gm/dL Hct 25.2 L (39.0-53.0) % RDW 15.9 H (11.5-15.5) % Chloride (98-107) mmol/L BUN (9-20) mg/dL Glucose (74-99) mg/dL POC Glucose (mg/dL) 255 H 339 H (70-110) mg/dL Calcium (8.4-10.2) mg/dL C. difficile (EIA) Intrp (Negative) 05/03/22 05/04/22 05/04/22 Range/Units 20:59 04:30 07:11 RBC 2.59 L (4.30-5.90) m/uL Hgb 8.0 L (13.0-17.5) gm/dL Hct 24.1 L (39.0-53.0) % RDW 15.6 H (11.5-15.5) % Chloride (98-107) mmol/L BUN (9-20) mg/dL Glucose (74-99) mg/dL POC Glucose (mg/dL) 258 H (70-110) mg/dL Calcium (8.4-10.2) mg/dL C. difficile (EIA) Intrp Positive A (Negative) 05/04/22 05/04/22 Range/Units 07:11 08:02 RBC (4.30-5.90) m/uL Hgb (13.0-17.5) gm/dL Hct (39.0-53.0) % RDW (11.5-15.5) % Chloride 113 H (98-107) mmol/L BUN 36 H (9-20) mg/dL Glucose 188 H (74-99) mg/dL POC Glucose (mg/dL) 203 H (70-110) mg/dL Calcium 8.2 L (8.4-10.2) mg/dL C. difficile (EIA) Intrp (Negative) Microbiology - Last 24 Hours (Table) 04/30/22 08:00 Blood Culture - Preliminary Blood No Growth after 96 hours 04/30/22 07:45 Blood Culture Gram Stain - Final Blood Blood Culture - Final Pseudomonas aeruginosa Assessment and Plan Assessment: 1. Acute kidney injury secondary to hemodynamic ATN. Baseline creatinine near 1 and was 2.77 on admission - 0.9 today. Nonoliguric. No hydronephrosis noted on CAT scan. Left kidney smaller in size. UA benign. 2. Status post abdominal wall reconstruction and panniculectomy on 04/28/2022. 3. Hyperkalemia secondary to acute kidney injury and hyperglycemia. Resolved. 4. Diabetes mellitus. 5. Metabolic acidosis secondary to acute kidney injury and IV fluids. On oral bicarb. 6. Pseudomonas aeruginosa bacteremia on abx. ID following. 7. GI bleed status post blood transfusion this admission. Hemoglobin 8.3 today. 8. Volume overload. Plan: Curtise
[2022-05-04 12:36] LABS: Glucose,Whole Blood 192 mg/dL (70-110)
--- NOTE | 2022-05-04 13:34 | P.PN ---
Subjective Progress Note Date: 05/03/22 Principal diagnosis: Pseudomonas bacteremia Patient is a 71-year-old male with a past medical history significant for COPD diabetes mellitus sleep apnea in this patient who recently did have a abdominal wall reconstruction with myocutaneous bilateral flap panniculectomy procedure completed on 04/28/2022 patient was subsequently discharged home, patient presenting back to the hospital 04/30/2022 for evaluation of weakness and concern for possible abdominal drain not working, CT of abdominal pelvis did not show any drainable abscess patient did have a positive blood culture for pseudomonas aeruginosa. On today's evaluation that is 05/03/2022, the patient afebrile today, the patient is breathing comfortably, the patient denies any chest pain or shortness of breath occasional cough abdominal pain is currently controlled with nausea no vomiting , patient has developed significant diarrhea this morning Objective - Vital Signs Vital signs: Vital Signs Temp 97.9 F 05/03/22 08:00 Pulse 96 05/03/22 11:12 Resp 20 05/03/22 11:00 BP 134/76 05/03/22 11:00 Pulse Ox 99 05/03/22 11:00 FiO2 21 05/02/22 19:19 Intake & Output 05/02/22 05/03/22 05/03/22 18:59 06:59 18:59 Intake Total 1680 580 165 Output Total 1115 2605 1665 Balance 565 1500 Weight 125.5 kg Intake: IV 360 270 65 Piperacillin-Tazobactam 3 150 25 .375 gm In Sodium Chloride 0.9% 100 ml @ 25 mls/hr IVPB Q8H [facility] Rx#: [id number] Sodium Chloride 0.9% 1, 360 120 40 000 ml @ 75 mls/hr IV . [id number] [facility] Rx#:[id number] Intake, IV Titration 100 Amount Sodium Ferric Gluconat- 100 Sucrose 125 mg In Sodium Chloride 0.9% 100 ml @ 100 mls/hr IVPB DAILY [facility]IAM Rx#:[id number] Oral 700 Blood Product 620 310 Rc As-1 Unit 310 [id number] Rc As-1 Unit 310 [id number] Output: Drainage 70 Left Groin 50 Right Groin 20 Urine 1115 2535 1665 Other: Voiding Method Indwelling Catheter Indwelling Catheter Indwelling Catheter # Bowel Movements 2 1 1 - Exam GENERAL DESCRIPTION: An elderly male up in the chair RESPIRATORY SYSTEM: Unlabored breathing , decreased breath sounds at bases HEART: S1 S2 regular rate and rhythm , ABDOMEN: Soft , abdominal binder is on, no tenderness EXTREMITIES: No edema feet - Labs CBC & Chem 7: 05/04/22 07:11 05/04/22 07:11 Labs: Abnormal Lab Results - Last 24 Hours (Table) 05/02/22 05/02/22 05/02/22 Range/Units 06:46 12:24 16:24 RBC 2.52 L (4.30-5.90) m/uL Hgb 7.9 L (13.0-17.5) gm/dL Hct 24.2 L (39.0-53.0) % RDW (11.5-15.5) % Chloride (98-107) mmol/L BUN (9-20) mg/dL Glucose (74-99) mg/dL POC Glucose (mg/dL) 286 H (70-110) mg/dL Calcium (8.4-10.2) mg/dL Crossmatch See Detail 05/02/22 05/02/22 05/02/22 Range/Units 18:09 21:20 21:35 RBC 2.19 L (4.30-5.90) m/uL Hgb 6.9 L* (13.0-17.5) gm/dL Hct 21.2 L (39.0-53.0) % RDW (11.5-15.5) % Chloride (98-107) mmol/L BUN (9-20) mg/dL Glucose (74-99) mg/dL POC Glucose (mg/dL) 315 H 301 H (70-110) mg/dL Calcium (8.4-10.2) mg/dL Crossmatch 05/03/22 05/03/22 05/03/22 Range/Units 05:23 05:23 07:03 RBC 2.60 L (4.30-5.90) m/uL Hgb 8.3 L (13.0-17.5) gm/dL Hct 25.1 L (39.0-53.0) % RDW (11.5-15.5) % Chloride 117 H (98-107) mmol/L BUN 62 H (9-20) mg/dL Glucose 214 H (74-99) mg/dL POC Glucose (mg/dL) 264 H (70-110) mg/dL Calcium 8.2 L (8.4-10.2) mg/dL Crossmatch 05/03/22 Range/Units 11:55 RBC 2.64 L (4.30-5.90) m/uL Hgb 8.2 L (13.0-17.5) gm/dL Hct 25.2 L (39.0-53.0) % RDW 15.9 H (11.5-15.5) % Chloride (98-107) mmol/L BUN (9-20) mg/dL Glucose (74-99) mg/dL POC Glucose (mg/dL) (70-110) mg/dL Calcium (8.4-10.2) mg/dL Crossmatch Microbiology - Last 24 Hours (Table) 04/30/22 08:00 Blood Culture - Preliminary Blood No Growth after 72 hours 04/30/22 07:45 Blood Culture Gram Stain - Preliminary Blood Blood Culture - Preliminary Pseudomonas aeruginosa Assessment and Plan (1) Bacteremia due to Pseudomonas Current Visit: Yes Status: Acute Code(s): R78.81 - BACTEREMIA; B96.5 - PSEUDOMONAS (MALLEI) CAUSING DISEASES [facility] SNOMED Code(s): 8236117787 Plan: 1patient with a Pseudomonas bacteremia in this patient who recently did have extensive abdominal wall reconstruction with myocutaneous flap and panniculectomy with concern for possible abdominal source versus pneumonia as CT abdominal pelvis did not show any intra-abdominal abscess and showed some right lower lobe infiltrate. 2blood cultures has been repeated document clearance of bacteremia. 3patient to continue Zosyn and monitor clinical course closely 4-patient with significant diarrhea will check a stool for C. diff and treat if positive Time with Patient: Less than 30
--- NOTE | 2022-05-04 13:36 | P.PN ---
Subjective Progress Note Date: 05/04/22 Principal diagnosis: Pseudomonas bacteremia and C. diff colitis Patient is a 71-year-old male with a past medical history significant for COPD diabetes mellitus sleep apnea in this patient who recently did have a abdominal wall reconstruction with myocutaneous bilateral flap panniculectomy procedure completed on 04/28/2022 patient was subsequently discharged home, boby sahni presenting back to the hospital 04/30/2022 for evaluation of weakness and concern for possible abdominal drain not working, CT of abdominal pelvis did not show any drainable abscess patient did have a positive blood culture for pseudomonas aeruginosa. On today's evaluation that is 05/04/2022, the patient remains to be afebrile, the patient is breathing comfortably on the 2 L nasal cannula, the patient denies any chest pain or shortness of breath occasional cough abdominal pain is currently controlled with nausea no vomiting , patient diarrhea has slowed down compared to yesterday Objective - Vital Signs Vital signs: Vital Signs Temp 98.0 F 05/04/22 07:55 Pulse 91 05/04/22 11:36 Resp 18 05/04/22 07:55 BP 136/77 05/04/22 07:55 Pulse Ox 95 05/04/22 08:05 FiO2 21 05/02/22 19:19 Intake & Output 05/03/22 05/04/22 05/04/22 18:59 06:59 18:59 Intake Total 265 200 Output Total 4065 4200 75 Balance -3800 -4000 -75 Intake: IV 165 200 Piperacillin-Tazobactam 3 125 200 .375 gm In Sodium Chloride 0.9% 100 ml @ 25 mls/hr IVPB Q8H [facility] Rx#: [id number] Sodium Chloride 0.9% 1, 40 000 ml @ 75 mls/hr IV . [id number] [facility] Rx#:[id number] Intake, IV Titration 100 Amount Sodium Ferric Gluconat- 100 Sucrose 125 mg In Sodium Chloride 0.9% 100 ml @ 100 mls/hr IVPB DAILY [facility] Rx#:[id number] Output: Drainage 75 Left Groin 60 Right Groin 15 Urine 4065 4200 Uretheral ([place]) 2100 Other: Voiding Method Indwelling Catheter Indwelling Catheter Urinal Diaper # Bowel Movements 1 1 - Exam GENERAL DESCRIPTION: An elderly male up in the chair RESPIRATORY SYSTEM: Unlabored breathing , decreased breath sounds at bases HEART: S1 S2 regular rate and rhythm , ABDOMEN: Soft , abdominal binder is on, no tenderness EXTREMITIES: No edema feet - Labs CBC & Chem 7: 05/04/22 07:11 05/04/22 07:11 Labs: Abnormal Lab Results - Last 24 Hours (Table) 05/03/22 05/03/22 05/04/22 Range/Units 17:38 20:59 04:30 RBC (4.30-5.90) m/uL Hgb (13.0-17.5) gm/dL Hct (39.0-53.0) % RDW (11.5-15.5) % Chloride (98-107) mmol/L BUN (9-20) mg/dL Glucose (74-99) mg/dL POC Glucose (mg/dL) 339 H 258 H (70-110) mg/dL Calcium (8.4-10.2) mg/dL C. difficile (EIA) Intrp Positive A (Negative) 05/04/22 05/04/22 05/04/22 Range/Units 07:11 07:11 08:02 RBC 2.59 L (4.30-5.90) m/uL Hgb 8.0 L (13.0-17.5) gm/dL Hct 24.1 L (39.0-53.0) % RDW 15.6 H (11.5-15.5) % Chloride 113 H (98-107) mmol/L BUN 36 H (9-20) mg/dL Glucose 188 H (74-99) mg/dL POC Glucose (mg/dL) 203 H (70-110) mg/dL Calcium 8.2 L (8.4-10.2) mg/dL C. difficile (EIA) Intrp (Negative) 05/04/22 Range/Units 12:33 RBC (4.30-5.90) m/uL Hgb (13.0-17.5) gm/dL Hct (39.0-53.0) % RDW (11.5-15.5) % Chloride (98-107) mmol/L BUN (9-20) mg/dL Glucose (74-99) mg/dL POC Glucose (mg/dL) 192 H (70-110) mg/dL Calcium (8.4-10.2) mg/dL C. difficile (EIA) Intrp (Negative) Microbiology - Last 24 Hours (Table) 04/30/22 08:00 Blood Culture - Preliminary Blood No Growth after 96 hours 04/30/22 07:45 Blood Culture Gram Stain - Final Blood Blood Culture - Final Pseudomonas aeruginosa Assessment and Plan (1) Bacteremia due to Pseudomonas Current Visit: Yes Status: Acute Code(s): R78.81 - BACTEREMIA; B96.5 - PSEUDOMONAS (MALLEI) CAUSING DISEASES [facility] SNOMED Code(s): 4587295703 Plan: 1patient with a Pseudomonas bacteremia in this patient who recently did have extensive abdominal wall reconstruction with myocutaneous flap and panniculectomy with concern for possible abdominal source versus pneumonia as CT abdominal pelvis did not show any intra-abdominal abscess and showed some right lower lobe infiltrate. 2patient to continue Zosyn to finish a two-week course of therapy 3-patient with significant diarrhea, stool for C. diff came back positive vancom ycin has been added we'll add Questran for symptomatic relief if needed Time with Patient: Less than 30
[2022-05-04] MEDS: FUROSEMIDE 10 MG/ML 4 ML VIAL IV SCH (13:51)
[2022-05-04 18:39] LABS: Glucose,Whole Blood 249 mg/dL (70-110)
[2022-05-04 20:36] LABS: Glucose,Whole Blood 237 mg/dL (70-110)
[2022-05-04] MEDS: LACTOBACILLUS ACIDOPH & BULGAR 1 EACH PACKET PO SCH (22:02)
--- NOTE | 2022-05-04 22:12 | P.PN ---
Subjective Progress Note Date: 05/04/22 family bedside reports moderate improvement of symptoms. Patient started on vancomycin oral due to positive C. diff. Discharge pending improvement of C. diff diarrhea clinical clearance from infectious disease. Continue abdominal binder. All dressings to be changed prior to discharge. Anticipated dis position 48 hours. Objective - Vital Signs Vital signs: Vital Signs Temp 98.4 F 05/04/22 19:44 Pulse 99 05/04/22 19:44 Resp 15 05/04/22 19:44 BP 122/71 05/04/22 19:44 Pulse Ox 98 05/04/22 19:44 FiO2 21 05/02/22 19:19 Intake & Output 05/04/22 05/04/22 05/05/22 06:59 18:59 06:59 Intake Total 200 300 Output Total 4200 2280 Balance -4000 -2280 300 Intake: IV 200 200 Piperacillin-Tazobactam 3 200 200 .375 gm In Sodium Chloride 0.9% 100 ml @ 25 mls/hr IVPB Q8H [facility] Rx#: [id number] Intake, IV Titration 100 Amount Sodium Ferric Gluconat- 100 Sucrose 125 mg In Sodium Chloride 0.9% 100 ml @ 100 mls/hr IVPB DAILY [facility] Rx#:[id number] Output: Drainage 180 Left Groin 150 Right Groin 30 Urine 4200 2100 Uretheral ([place]) 2100 Other: Voiding Method Indwelling Catheter Urinal Diaper # Bowel Movements 1 4 - Labs CBC & Chem 7: 05/04/22 07:11 05/04/22 07:11 Labs: Abnormal Lab Results - Last 24 Hours (Table) 05/04/22 05/04/22 05/04/22 Range/Units 04:30 07:11 07:11 RBC 2.59 L (4.30-5.90) m/uL Hgb 8.0 L (13.0-17.5) gm/dL Hct 24.1 L (39.0-53.0) % RDW 15.6 H (11.5-15.5) % Chloride 113 H (98-107) mmol/L BUN 36 H (9-20) mg/dL Glucose 188 H (74-99) mg/dL POC Glucose (mg/dL) (70-110) mg/dL Calcium 8.2 L (8.4-10.2) mg/dL C. difficile (EIA) Intrp Positive A (Negative) 05/04/22 05/04/22 05/04/22 Range/Units 08:02 12:33 18:19 RBC (4.30-5.90) m/uL Hgb (13.0-17.5) gm/dL Hct (39.0-53.0) % RDW (11.5-15.5) % Chloride (98-107) mmol/L BUN (9-20) mg/dL Glucose (74-99) mg/dL POC Glucose (mg/dL) 203 H 192 H 249 H (70-110) mg/dL Calcium (8.4-10.2) mg/dL C. difficile (EIA) Intrp (Negative) 05/04/22 Range/Units 20:33 RBC (4.30-5.90) m/uL Hgb (13.0-17.5) gm/dL Hct (39.0-53.0) % RDW (11.5-15.5) % Chloride (98-107) mmol/L BUN (9-20) mg/dL Glucose (74-99) mg/dL POC Glucose (mg/dL) 237 H (70-110) mg/dL Calcium (8.4-10.2) mg/dL C. difficile (EIA) Intrp (Negative) Microbiology - Last 24 Hours (Table) 05/04/22 04:30 Stool Culture - Preliminary Stool 04/30/22 08:00 Blood Culture - Preliminary Blood No Growth after 96 hours 04/30/22 07:45 Blood Culture Gram Stain - Final Blood Blood Culture - Final Pseudomonas aeruginosa
--- NOTE | 2022-05-05 02:39 | P.PN ---
Subjective Progress Note Date: 05/04/22 - Reason for Consult Consult date: 05/01/22 hypotension - History of Present Illness Gene Zuleta is a 71-year-old male with a past medical history significant for COPD, T2DM, recent abdominal wall reconstruction with panniculectomy on 04/28. He states he was discharged home and becoame progressively more weak and family noticed him becoming slow to respond so presented back to the hospital 04/30/2022. He denies chest pain or shortness of breath, denies abdominal pain no nausea vomiting or diarrhea. On presentation pt afebrile, hypercapneic and treated with BIPAP. WBC 16.3, procalcitonin elevated. CXR no acute process, abdominal CT subcutaneous air bubbles with fluid and drainage tubes. 05/03/[address] Sebastian Garcia Patient is seen in the ICU currently a downgrade and working on a [facility] bed. Patient is status post panniculectomy with multiple medical consultations following. Patient looks well sitting up and continues with some lower extremity edema noted. Blood cultures were positive and patient is continued on IV Zosyn with infectious disease following as well.. Patient continues on 4 L via nasal cannula and reports he does not normally wear oxygen and also given a dose of IV Lasix today for his generalized edema. Patient is continued on sodium bicarb tablets and has remained off pressors support. Patient also with elevated blood sugars and continued on sliding scale and will add long-acting and recommend monitor Accu-Cheks before meals and at bedtime. Patient also receiving IV iron with nephrology following closely. Patient to continue with DuoNeb treatments as well. Patient denies chest pain or worsening shortness of breath. Patient is afebrile and reports is tolerating diet. 05/04/2022 Patient is seen in follow-up has moved out of the ICU maintained on 2 L via nasal cannula maintaining oxygen saturations are 95%. WBC is normal at 7.0, hemoglobin is stable at 8.0, platelets are 165. Sodium is 142 with a potassium of 4.0 and creatinine is stable at 0.94. Patient is positive for C. diff and infectious disease is following and patient has been maintained on Zosyn will likely initiate vancomycin oral and will confirm with infectious disease. Patient is currently afebrile denies chest pain or shortness of breath. Patient is maintained on IV Lasix daily and recommended follow-up labs in a.m. Review of systems: Constitutional: No reports of fatigue, fever, or chills Cardiovascular: No reports of chest pain or palpitations Respiratory: No reports of worsening shortness of breath or cough GI: No reports of nausea, vomiting, reports episodes of diarrhea : No reports of dysuria or retention Neurovascular: reports of generalized weakness and some lower extremity swelling All medications have been reviewed Active Medications Hydrocodone Bitart/Acetaminophen (Hydrocodone/Apap 10-325mg 1 Each Tab) 1 each PO TID PRN PRN Reason: Pain Last Admin: 05/04/22 09:08 Dose: 1 each Albuterol/Ipratropium (Ipratropium-Albuterol 3 Ml Neb) 3 ml INHALATION RT-QID [facility] Last Admin: 05/04/22 08:02 Dose: 3 ml Albuterol/Ipratropium (Ipratropium-Albuterol 3 Ml Neb) 3 ml INHALATION RT-Q2H PRN PRN Reason: Shortness Of Breath Or Wheezing Gabapentin (Gabapentin 400 Mg Cap) 800 mg PO TID [facility] Last Admin: 05/04/22 08:52 Dose: 800 mg Norepinephrine Bitartrate 4 mg (/ Sodium Chloride) 254 mls @ 12.184 mls/hr IV .[id number] [facility]; Protocol Last Admin: 05/03/22 16:57 Dose: Not Given Piperacillin Sod/Tazobactam (Sod 3.375 gm/ Sodium Chloride) 100 mls @ 25 mls/hr IVPB Q8H [facility]; Protocol Last Admin: 05/04/22 05:29 Dose: 25 mls/hr Ferric Sodium Gluconate 125 mg (/ Sodium Chloride) 110 mls @ 100 mls/hr IVPB DAILY [facility] Stop: 05/04/22 10:05 Last Admin: 05/04/22 08:52 Dose: 100 mls/hr Insulin Aspart (Insulin Aspart (Novolog) 100 Unit/Ml Vial) 0 unit SQ ACHS [facility]; Protocol Last Admin: 05/04/22 08:49 Dose: 4 unit Insulin Detemir (Insulin Detemir (Levemir) 100 Unit/Ml Syr) 10 unit SQ DAILY@0700 [facility] Last Admin: 05/04/22 08:48 Dose: 10 unit Metoprolol Tartrate (Metoprolol Tartrate 50 Mg Tab) 50 mg PO BID [facility] Last Admin: 05/04/22 08:52 Dose: 50 mg Naloxone HCl (Naloxone 0.4 Mg/Ml 1 Ml Vial) 0.2 mg IV Q2M PRN PRN Reason: Opioid Reversal Pantoprazole Sodium (Pantoprazole 40 Mg/10 Ml Vial) 40 mg IVP BID [facility] Last Admin: 05/04/22 08:52 Dose: 40 mg Sodium Bicarbonate (Sodium Bicarbonate Tab 650 Mg Tab) 650 mg PO BID [facility] Last Admin: 05/04/22 08:52 Dose: 650 mg Tamsulosin HCl (Tamsulosin 0.4 Mg Cap.Er.24h) 0.4 mg PO BID [facility] Last Admin: 05/04/22 08:52 Dose: 0.4 mg Physical exam: Gen: This is a 71-year-old male who is awake, alert and oriented 3, well-developed, well-nourished, obese HEENT: Head is atraumatic, normocephalic. Pupils equal, round. Sclerae is anicteric. NECK: Supple. No JVD. No lymphadenopathy. No thyromegaly. LUNGS: Diminished breath sounds bilaterally with no wheezes or rhonchi. No intercostal retractions. HEART: Regular rate and rhythm. No murmur. ABDOMEN: Soft. Obese, tender with abdominal binder noted Bowel sounds are present. No masses. No tenderness. EXTREMITIES: No pedal edema. No calf tenderness. Bilateral lower extremity edema noted NEUROLOGICAL: Patient is awake, alert and oriented x3. Cranial nerves 2 through 12 are grossly intact. Diffusely weak Assessment: Status post abdominal wall reconstruction with myocutaneous bilateral flap advancement and panniculectomy him a postop day #5 Acute hypoxic and hypercapneic respiratory failure possibly secondary to narcotics Episodes of diarrhea, positive for C. diff History of COPD, not in exacerbation history of sleep apnea syndrome uses a CPAP History of CVA Hypertension history Hyperlipidemia History of osteoarthritis History of BPH Severe Sepsis. With psuedomonas bacteremia. Diabetes type 2, uncontrolled with hyperglycemia GI prophylaxis DVT prophylaxis No code Plan: Recommend continue with current medications and management with general surgery as admitting. Multiple medical consultations following including infectious disease and patient is maintained on IV Zosyn for bacteremia Pseudomonas. Patient having episodes of diarrhea and C. diff was ordered and was found to be positive and discussed with infectious disease and will initiate oral vancomycin Patient is currently maintained on 4 L via nasal cannula using his CPAP at night and will wean FiO2 as tolerated Recommend incentive spirometer and continue use at least 10 times every hour while awake Recommend Accu-Cheks before meals and at bedtime and continue with sliding scale and will add low-dose long-acting his blood sugars have been elevated Hemoglobin is stable at 8.0 and recommend monitor closely recommend follow-up labs We will continue to follow with surgery during hospitalization Thank you for this consultation. The impression and plan of care has been dictated by Shelbi Pillai, Nurse Practitioner as directed. MD Hair I have performed a history and examination and MDM of this patient, discussed the same with the dictator, and agree with the dictator's assessment and plan as written ,documented as a scribe. Based on total visit time, I have performed more than 50% of the visit. Objective - Vital Signs Vital signs: Vital Signs Temp 98.0 F 05/04/22 07:55 Pulse 103 H 05/04/22 08:13 Resp 18 05/04/22 07:55 BP 136/77 05/04/22 07:55 Pulse Ox 95 05/04/22 08:05 FiO2 21 05/02/22 19:19 Intake & Output 05/03/22 05/04/22 05/04/22 18:59 06:59 18:59 Intake Total 265 200 Output Total 4065 4200 75 Balance -3800 -4000 -75 Intake: IV 165 200 Piperacillin-Tazobactam 3 125 200 .375 gm In Sodium Chloride 0.9% 100 ml @ 25 mls/hr IVPB Q8H [facility] Rx#: [id number] Sodium Chloride 0.9% 1, 40 000 ml @ 75 mls/hr IV . [id number] [facility] Rx#:[id number] Intake, IV Titration 100 Amount Sodium Ferric Gluconat- 100 Sucrose 125 mg In Sodium Chloride 0.9% 100 ml @ 100 mls/hr IVPB DAILY [facility] Rx#:[id number] Output: Drainage 75 Left Groin 60 Right Groin 15 Urine 4065 4200 Uretheral ([place]) 2100 Other: Voiding Method Indwelling Catheter Indwelling Catheter Urinal Diaper # Bowel Movements 1 1 - Labs CBC & Chem 7: 05/04/22 07:11 05/04/22 07:11 Labs: Abnormal Lab Results - Last 24 Hours (Table) 05/03/22 05/03/22 05/03/22 Range/Units 11:55 13:05 17:38 RBC 2.64 L (4.30-5.90) m/uL Hgb 8.2 L (13.0-17.5) gm/dL Hct 25.2 L (39.0-53.0) % RDW 15.9 H (11.5-15.5) % Chloride (98-107) mmol/L BUN (9-20) mg/dL Glucose (74-99) mg/dL POC Glucose (mg/dL) 255 H 339 H (70-110) mg/dL Calcium (8.4-10.2) mg/dL C. difficile (EIA) Intrp (Negative) 05/03/22 05/04/22 05/04/22 Range/Units 20:59 04:30 07:11 RBC 2.59 L (4.30-5.90) m/uL Hgb 8.0 L (13.0-17.5) gm/dL Hct 24.1 L (39.0-53.0) % RDW 15.6 H (11.5-15.5) % Chloride (98-107) mmol/L BUN (9-20) mg/dL Glucose (74-99) mg/dL POC Glucose (mg/dL) 258 H (70-110) mg/dL Calcium (8.4-10.2) mg/dL C. difficile (EIA) Intrp Positive A (Negative) 05/04/22 05/04/22 Range/Units 07:11 08:02 RBC (4.30-5.90) m/uL Hgb (13.0-17.5) gm/dL Hct (39.0-53.0) % RDW (11.5-15.5) % Chloride 113 H (98-107) mmol/L BUN 36 H (9-20) mg/dL Glucose 188 H (74-99) mg/dL POC Glucose (mg/dL) 203 H (70-110) mg/dL Calcium 8.2 L (8.4-10.2) mg/dL C. difficile (EIA) Intrp (Negative) Microbiology - Last 24 Hours (Table) 04/30/22 07:45 Blood Culture Gram Stain - Final Blood Blood Culture - Final Pseudomonas aeruginosa 04/30/22 08:00 Blood Culture - Preliminary Blood No Growth after 72 hours
[2022-05-05] MEDS: HYDROcodone/APAP 10-325MG 1 EACH TAB PO PRN ×3 (04:56→22:07)
[2022-05-05] MEDS: PIPERACILLIN-TAZOBACTAM 3.375 GM in SODIUM CHLORIDE 0.9% 100 ML IVPB SCH ×3 (05:00→21:54)
[2022-05-05 07:22] LABS: Glucose,Whole Blood 194 mg/dL (70-110)
[2022-05-05] MEDS: IPRATROPIUM-ALBUTEROL 3 ML NEB INHALATION SCH ×4 (07:49→20:58)
[2022-05-05] MEDS: GABAPENTIN 400 MG CAP PO SCH ×3 (08:58→21:53)
[2022-05-05] MEDS: LACTOBACILLUS ACIDOPH & BULGAR 1 EACH PACKET PO SCH ×2 (08:58→21:53)
[2022-05-05] MEDS: PANTOPRAZOLE 40 MG/10 ML VIAL IVP SCH ×2 (08:58→21:53)
[2022-05-05] MEDS: FUROSEMIDE 10 MG/ML 4 ML VIAL IV SCH (08:58)
[2022-05-05] MEDS: VANCOMYCIN 125 MG CAPSULE PO SCH ×4 (08:59→21:53)
[2022-05-05] MEDS: TAMSULOSIN 0.4 MG CAP.ER.24H PO SCH ×2 (08:59→21:53)
[2022-05-05] MEDS: METOPROLOL TARTRATE 50 MG TAB PO SCH ×3 (08:59→21:53)
[2022-05-05] MEDS: SODIUM BICARBONATE TAB 650 MG TAB PO SCH ×2 (08:59→21:53)
[2022-05-05] MEDS: INSULIN ASPART (NovoLOG) 100 UNIT/ML VIAL SQ SCH ×4 (08:59→21:54)
[2022-05-05 09:03] LABS: HCT 23.7 % (39.6-50.0); HGB 7.5 g/dL (13.0-17.0); MCHC 31.6 g/dL (32.0-37.0); MCV 94.8 fL (80.0-97.0); Mean Platelet Volume 9.3 fL (9.5-12.2); NRBC Per 100 WBC 0.9 /100 WBCS (0.0-0.0); Platelet Count 166 X 10*3/uL (140-440); RDW 15.3 % (11.5-14.5); WBC 8.04 X 10*3/uL (4.50-10.00)
[2022-05-05] MEDS: NOREPINEPHRINE 4 MG in SODIUM CHLORIDE 0.9% 250 ML IV SCH (09:10)
--- NOTE | 2022-05-05 09:22 | P.PN ---
Subjective Progress Note Date: 05/05/22 HISTORY OF PRESENT ILLNESS: The patient is a 71-year-old gentleman with a past medical history significant for obesity and sleep apnea and hypertension and dyslipidemia who was admitted to the hospital and underwent an abdominal hernia surgery. We consulted to see the patient because of paroxysmal atrial fibrillation. Apparently during his hospital stay he went into atrial fibrillation with RVR and subsequently converted to normal sinus mechanism. Also he developed gastrointestinal bleeding and he required 2 units of packed RBC. He underwent an echo which revealed normal left ventricle systolic function was no significant valvular abnormalities May [id number] The patient was seen and evaluated this morning. He has been maintaining normal sinus mechanism. He has been hemodynamic be stable. He was started on metoprolol yesterday at 25 mg by mouth 3 times a day which I'm going to increase to 50 mg by mouth twice a day. Hold anticoagulation because of the GI bleeding. May [id number] The patient was evaluated this morning. He is in normal sinus mechanism but he is tachycardic with a resting heart rate of 100 beats per minutes. I'm going to increase the dose of metoprolol to 50 mg by mouth 3 times a day. Anticoagulation are on hold at this point because of the GI bleeding. 05/05/2022 Patient examined this morning at the bedside. Patient denies chest pain or pressure. Denies SOB. Vital signs are stable. PHYSICAL EXAM: VITAL SIGNS: Reviewed. GENERAL: Well-developed in no acute distress. NECK: Supple. No JVD or thyromegaly LUNGS: Respirations even and unlabored. Lungs essentially clear to auscultation bilaterally. HEART: Regular rate and rhythm. S1 and S2 heard. EXTREMITIES: Normal range of motion. No clubbing or cyanosis. Peripheral pulses intact. No lower extremity edema ASSESSMENT: Status post abdominal wall hernia repair + C. Diff Paroxysmal atrial fibrillation, not on anticoagulation secondary to anemia Anemia, related to blood loss Multiple comorbid conditions PLAN: Continue current cardiac medications Patient is stable for discharge from a cardiac standpoint We will sign off. Please reconsult if needed. Nurse practitioner note has been reviewed by physician. Signing provider agrees with the documented findings, assessment, and plan of care. Objective - Vital Signs Vital signs: Vital Signs Temp 97.5 F L 05/05/22 07:15 Pulse 104 H 05/05/22 07:49 Resp 18 05/05/22 07:15 BP 112/71 05/05/22 07:15 Pulse Ox 98 05/05/22 07:15 FiO2 21 05/02/22 19:19 Intake & Output 05/04/22 05/05/22 05/05/22 18:59 06:59 18:59 Intake Total 1300 Output Total 2280 290 800 Balance -2280 1010 -800 Intake: IV 1200 Piperacillin-Tazobactam 3 300 .375 gm In Sodium Chloride 0.9% 100 ml @ 25 mls/hr IVPB Q8H [facility] Rx#: [id number] Sodium Chloride 0.9% 1, 900 000 ml @ 75 mls/hr IV . [id number] [facility] Rx#:[id number] Intake, IV Titration 100 Amount Sodium Ferric Gluconat- 100 Sucrose 125 mg In Sodium Chloride 0.9% 100 ml @ 100 mls/hr IVPB DAILY [facility] Rx#:[id number] Output: Drainage 180 90 Left Groin 150 60 Right Groin 30 30 Urine 2100 200 800 Other: Voiding Method Urinal Urinal Diaper Diaper # Bowel Movements 4 - Labs CBC & Chem 7: 05/05/22 05:46 05/04/22 07:11 Labs: Abnormal Lab Results - Last 24 Hours (Table) 05/04/22 05/04/22 05/04/22 Range/Units 04:30 08:02 12:33 POC Glucose (mg/dL) 203 H 192 H (70-110) mg/dL C. difficile (EIA) Intrp Positive A (Negative) 05/04/22 05/04/22 05/05/22 Range/Units 18:19 20:33 07:21 POC Glucose (mg/dL) 249 H 237 H 194 H (70-110) mg/dL C. difficile (EIA) Intrp (Negative) Microbiology - Last 24 Hours (Table) 05/04/22 04:30 Stool Culture - Preliminary Stool 04/30/22 08:00 Blood Culture - Preliminary Blood No Growth after 96 hours
[2022-05-05 09:31] LABS: African American GFR (CKD) 77.9 (60.0-200.0); Anion Gap 9.9 mmol/L (10.00-18.00); BUN/Creat Ratio 27.82 Ratio (12.00-20.00); Blood Urea Nitrogen 30.6 mg/dL (9.0-27.0); Carbon Dioxide 27.1 mmol/L (20.0-27.5); Non-African American GFR(CKD) 67.2 (60.0-200.0); Potassium 3.9 mmol/L (3.5-5.5)
[2022-05-05] MEDS: INSULIN DETEMIR (LEVEMIR) 100 UNIT/ML SYR SQ SCH ×2 (09:39→21:54)
[2022-05-05 10:24] LABS: Basophils # (M) 0.08 X 10*3/uL (0.00-0.10); Lymphocytes # (M) 0.96 X 10*3/uL (0.90-5.00); Metamyelocytes % 1 % (0-0); Monocytes # (M) 0.72 X 10*3/uL (0.20-1.00); Myelocytes % 1 % (0-0); Neutrophils # (M) 5.71 X 10*3/uL (2.00-8.90); Neutrophils % (M) 71 %
[2022-05-05 11:36] LABS: Glucose,Whole Blood 294 mg/dL (70-110)
--- NOTE | 2022-05-05 13:10 | P.PN ---
Subjective Progress Note Date: 05/05/22 Principal diagnosis: Bacteremia, Sepsis 71-year-old male with history of COPD, diabetes, and sleep apnea, who presented to the emergency department on April 30, 720 in the morning, with mental status changes, and we. The patient was discharged from [facility], on the . He had surgery by Dr. Loredo on April 28. The patient came back into the hospital, at 6:00 this morning. He apparently was found to be profoundly weak at home, according to his , with diarrhea, lethargy, somnolence, and inability to care for himself. The patient is seen in the emergency department, and is currently on BiPAP, with settings of 10/5 and 35%. The patient's getting saline at 150 mL an hour. His primary care provider is Dr. Garcia, and he also sees my partner, Dr. Kraus for COPD. He does use oxygen at home, and also has a home nebulizer machine. On April 28, the patient underwent an abdominal wall reconstruction with myocutaneous bilateral flap advancement, and a panniculectomy. The patient was anxious to be discharged from the hospital, and petitioned the surgeon, and was discharged on April 29. He came back in later that day, at 7 PM, but after waiting for 4 or 5 hours, decided to go home. They came back into the hospital on the morning of the , at 6 AM. White count 16.3, hemoglobin 10.4, hematocrit 32.5, and platelet count 225,000. Blood gases show pO2 of 98, pCO2 of 62, and a pH of 7.20. That was on 35% oxygen. Sodium 139, potassium 5.3, chlorides 107, CO2 25, BUN 75, and creatinine 2.77. Troponin was 0.044 and 0.051. N-terminal proBNP was 593. Progress note dated 05/01/2022. 71-year-old male with history of COPD, diabetes, and sleep apnea, who was seen in the emergency department yesterday. He apparently was admitted with mental status changes. The patient was discharged from [facility] on April 29, after having a surgery done by Dr. Loredo, the day prior. The patient was admitted to the floor, and then was moved to the intensive care unit, overnight, because of worsening respiratory distress, and low blood pressure. I gave the order to start him on some norepinephrine, but the patient never needed to be started on norepinephrine. Currently, he's on 4 L nasal cannula. He is awake and alert. He did use BiPAP throughout the night, with settings of 10/5 and 35%. Today's postop day #3. The blood cultures showed evidence of gram-negative bacilli. They have yet to be identified. He is currently on Zosyn. White count 9.4, hemoglobin 9.7, hematocrit 30.6, and platelet count 253,000. Sodium 141, pot assium 4.9, chlorides 114, CO2 19, BUN 84, and creatinine 2.70. Cortisol level was 24. Blood cultures are showing evidence of Pseudomonas aeruginosa. Sensitivities are currently pending. Progress note dated 05/02/2022. 71-year-old male seen in consultation 2 days ago. The patient is seen again in the intensive care unit, room 252. The patient's on 4 L of oxygen. He is getting saline at 75 mL an hour. He is getting 1 unit of packed red blood cells. The patient apparently is been having some dark diarrhea, and coffee- ground emesis. Also, the patient appears to be stable. Lab work includes a white count 10.2, hemoglobin 7.9, hematocrit 24.2, and a platelet count is normal. Sodium 143, potassium 4.4, chlorides 117, CO2 24, BUN 72, and creatinine 1.5. Calcium 7.6. Blood cultures were positive for pseudomonas aeruginosa. The patient remains on Zosyn. Progress note dated 05/03/2022. 71-year-old male seen again today in room 252. The patient's currently on 4 L of oxygen. Getting saline at KVO. The patient's received a total of 2 units of packed red blood cells. The patient did bring in his home CPAP device, and used it last night. The patient can be transferred to the general medical floor, without telemetry. Blood cultures are positive for Pseudomonas. He is cur rently on Zosyn. Sensitivities are currently pending. White count 7.5, hemoglobin 8.3, hematocrit 25.1, with a normal platelet count. Sodium 143, potassium 4.4, chlorides 117, CO2 22, BUN 62, and creatinine 1.10. Progress note dated 05/04/2022. 71-year-old male seen in room 533. He is doing well. Currently, he's on 2 L of oxygen. He's not receiving any IV fluids. He was transferred out of the intensive care unit yesterday. He denies any difficulty breathing, shortness of breath, cough, or chest pain. White count 7, hemoglobin 8, hematocrit 24.1, and platelet count was normal. Sodium 142, potassium 4, chlorides 113, CO2 29, BUN 36, creatinine 0.94. He did test positive for C. difficile colitis. Blood cultures from April 30 were positive for pseudomonas aeruginosa. It is se nsitive to Zosyn. I'm evaluating this patient in follow-up on 05/05/2022 on a general medical floo r. Patient is fairly comfortable on room air, he sitting at the edge of the bed, he is asking when he can go home. vital signs remained stable, and patient has remained off vasopressors. no IV maintenance fluids are infusing. A stool culture for C. diff did come back positive, and he is maintained on oral vancomycin. he remains on Zosyn for a previous positive blood culture for pseudomonas. no new chest x-ray from today to review. he continues to receive PRN DuoNeb inhalation. CBC is stable, showing some anemia. WBC count 8, hemoglobin 7.5, hematocrit 23.7, platelets 166,000. BMP is also stable with a sodium of 142, potassium 3.9, chloride 105, serum CO2 27, BUN 30.6, creatinine 1.1, glucose 182. Objective - Vital Signs Vital signs: Vital Signs Temp 97.5 F L 05/05/22 07:15 Pulse 96 05/05/22 12:26 Resp 18 05/05/22 07:15 BP 112/71 05/05/22 07:15 Pulse Ox 98 05/05/22 07:15 FiO2 21 05/02/22 19:19 Intake & Output 05/04/22 05/05/22 05/05/22 18:59 06:59 18:59 Intake Total 1300 Output Total 2280 290 1550 Balance -2280 1010 -1550 Intake: IV 1200 Piperacillin-Tazobactam 3 300 .375 gm In Sodium Chloride 0.9% 100 ml @ 25 mls/hr IVPB Q8H [facility] Rx#: [id number] Sodium Chloride 0.9% 1, 900 000 ml @ 75 mls/hr IV . [id number] [facility]IAM Rx#:[id number] Intake, IV Titration 100 Amount Sodium Ferric Gluconat- 100 Sucrose 125 mg In Sodium Chloride 0.9% 100 ml @ 100 mls/hr IVPB DAILY WILLIAM Rx#:[id number] Output: Drainage 180 90 Left Groin 150 60 Right Groin 30 30 Urine 2100 200 1550 Other: Voiding Method Urinal Urinal Urinal Diaper Diaper # Voids 1 # Bowel Movements 4 1 - Exam No acute distress, awake and alert, currently on room air HEENT examination is grossly unremarkable. Neck supple. Full range of motion. No adenopathy thyromegaly or neck vein distention. Cardiovascular examination reveals regular rhythm rate. S1-S2 normal. No S3 or S4. No discernible murmur noted. Heart sounds are distant. Heart rate 104 bpm. Lungs reveal scattered bilateral rhonchi. No wheezes. No crackles. Breath sounds are equal bilaterally.oxygen saturation 95% on room air.. Abdomen soft, without bowel sounds. Abdomen obese. Drains are noted at the lower portion of the abdomen. Extremities are intact. No cyanosis or clubbing. Trace edema noted. Skin is without rash or lesion. Neurologic examination reveals the patient to be awake and alert. - Labs CBC & Chem 7: 05/05/22 05:46 05/05/22 05:46 Labs: Abnormal Lab Results - Last 24 Hours (Table) 05/04/22 05/04/22 05/04/22 Range/Units 12:33 18:19 20:33 RBC (4.40-5.60) X 10*6/uL Hgb (13.0-17.0) g/dL Hct (39.6-50.0) % MCHC (32.0-37.0) g/dL RDW (11.5-14.5) % MPV (9.5-12.2) fL Absolute Nucleated RBC (0.00-0.00) X 10*3/uL Metamyelocytes % (0-0) % Myelocytes % (0-0) % Eosinophils # (Manual) (0.04-0.35) X 10*3/uL NRBC/100 WBC Diff (0.0-0.0) /100 WBCS Anion Gap (10.00-18.00) mmol/L BUN (9.0-27.0) mg/dL BUN/Creatinine Ratio (12.00-20.00) Ratio Glucose (70-110) mg/dL POC Glucose (mg/dL) 192 H 249 H 237 H (70-110) mg/dL 05/05/22 05/05/22 05/05/22 Range/Units 05:46 05:46 07:21 RBC 2.50 L (4.40-5.60) X 10*6/uL Hgb 7.5 L (13.0-17.0) g/dL Hct 23.7 L (39.6-50.0) % MCHC 31.6 L (32.0-37.0) g/dL RDW 15.3 H (11.5-14.5) % MPV 9.3 L (9.5-12.2) fL Absolute Nucleated RBC 0.07 H (0.00-0.00) X 10*3/uL Metamyelocytes % 1 H (0-0) % Myelocytes % 1 H (0-0) % Eosinophils # (Manual) 0.40 H (0.04-0.35) X 10*3/uL NRBC/100 WBC Diff 0.9 H (0.0-0.0) /100 WBCS Anion Gap 9.90 L (10.00-18.00) mmol/L BUN 30.6 H (9.0-27.0) mg/dL BUN/Creatinine Ratio 27.82 H (12.00-20.00) Ratio Glucose 182 H (70-110) mg/dL POC Glucose (mg/dL) 194 H (70-110) mg/dL 05/05/22 Range/Units 11:35 RBC (4.40-5.60) X 10*6/uL Hgb (13.0-17.0) g/dL Hct (39.6-50.0) % MCHC (32.0-37.0) g/dL RDW (11.5-14.5) % MPV (9.5-12.2) fL Absolute Nucleated RBC (0.00-0.00) X 10*3/uL Metamyelocytes % (0-0) % Myelocytes % (0-0) % Eosinophils # (Manual) (0.04-0.35) X 10*3/uL NRBC/100 WBC Diff (0.0-0.0) /100 WBCS Anion Gap (10.00-18.00) mmol/L BUN (9.0-27.0) mg/dL BUN/Creatinine Ratio (12.00-20.00) Ratio Glucose (70-110) mg/dL POC Glucose (mg/dL) 294 H (70-110) mg/dL Microbiology - Last 24 Hours (Table) 04/30/22 08:00 Blood Culture - Preliminary Blood No Growth after 120 hours 05/04/22 04:30 Stool Culture - Preliminary Stool Assessment and Plan Assessment: Postop day #7, status post abdominal wall reconstruction with myocutaneous bilateral flap advancement, and panniculectomy. 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 Rule out non-ST segment elevation myocardial infarction. Pseudomonas aeruginosa bacteremia. History of COPD. Obesity. History of diabetes mellitus. History of sleep apnea syndrome. History of CVA. History of hyperlipidemia. History of hypertension. History of osteoarthritis. History of BPH. Plan: patient's medications and labs reviewed maintain oral vancomycin for positive C. diff Able to tolerate oral fluids on room air From a pulmonary standpoint patient is cleared for discharge. I have personally seen and examined the patient, performed the documentation and the assessment and plan as written. Number of minutes spent on the visit: [ 10]. Time with Patient: Less than 30
--- NOTE | 2022-05-05 15:11 | P.PN ---
Subjective Progress Note Date: 05/05/22 Principal diagnosis: Pseudomonas bacteremia and C. diff colitis Patient is a 71-year-old male with a past medical history significant for COPD diabetes mellitus sleep apnea in this patient who recently did have a abdominal wall reconstruction with myocutaneous bilateral flap panniculectomy procedure completed on 04/28/2022 patient was subsequently discharged home, boby sahni presenting back to the hospital 04/30/2022 for evaluation of weakness and concern for possible abdominal drain not working, CT of abdominal pelvis did not show any drainable abscess patient did have a positive blood culture for pseudomonas aeruginosa. On today's evaluation that is 05/05/2022, the patient continues to be afebrile, the patient is breathing comfortably on the 2 L nasal cannula, the patient denies any chest pain or shortness of breath, the patient did occasional dry cough abdominal pain decreased in intensity no nausea vomiting and diarrhea has slowed down Objective - Vital Signs Vital signs: Vital Signs Temp 99.4 F 05/05/22 12:56 Pulse 99 05/05/22 12:56 Resp 18 05/05/22 12:56 BP 122/73 05/05/22 12:56 Pulse Ox 94 L 05/05/22 12:56 FiO2 21 05/02/22 19:19 Intake & Output 05/04/22 05/05/22 05/05/22 18:59 06:59 18:59 Intake Total 1300 Output Total 2280 290 2450 Balance -2280 1010 -2450 Intake: IV 1200 Piperacillin-Tazobactam 3 300 .375 gm In Sodium Chloride 0.9% 100 ml @ 25 mls/hr IVPB Q8H [facility] Rx#: [id number] Sodium Chloride 0.9% 1, 900 000 ml @ 75 mls/hr IV . [id number] [facility] Rx#:[id number] Intake, IV Titration 100 Amount Sodium Ferric Gluconat- 100 Sucrose 125 mg In Sodium Chloride 0.9% 100 ml @ 100 mls/hr IVPB DAILY WILLIAM Rx#:[id number] Output: Drainage 180 90 Left Groin 150 60 Right Groin 30 30 Urine 2100 200 2450 Other: Voiding Method Urinal Urinal Urinal Diaper Diaper # Voids 1 # Bowel Movements 4 1 - Exam GENERAL DESCRIPTION: An elderly male up in the chair RESPIRATORY SYSTEM: Unlabored breathing , decreased breath sounds at bases HEART: S1 S2 regular rate and rhythm , ABDOMEN: Soft , abdominal binder is on, no tenderness EXTREMITIES: No edema feet - Labs CBC & Chem 7: 05/05/22 05:46 05/05/22 05:46 Labs: Abnormal Lab Results - Last 24 Hours (Table) 05/04/22 05/04/22 05/05/22 Range/Units 18:19 20:33 05:46 RBC 2.50 L (4.40-5.60) X 10*6/uL Hgb 7.5 L (13.0-17.0) g/dL Hct 23.7 L (39.6-50.0) % MCHC 31.6 L (32.0-37.0) g/dL RDW 15.3 H (11.5-14.5) % MPV 9.3 L (9.5-12.2) fL Absolute Nucleated RBC 0.07 H (0.00-0.00) X 10*3/uL Metamyelocytes % 1 H (0-0) % Myelocytes % 1 H (0-0) % Eosinophils # (Manual) 0.40 H (0.04-0.35) X 10*3/uL NRBC/100 WBC Diff 0.9 H (0.0-0.0) /100 WBCS Anion Gap (10.00-18.00) mmol/L BUN (9.0-27.0) mg/dL BUN/Creatinine Ratio (12.00-20.00) Ratio Glucose (70-110) mg/dL POC Glucose (mg/dL) 249 H 237 H (70-110) mg/dL 05/05/22 05/05/22 05/05/22 Range/Units 05:46 07:21 11:35 RBC (4.40-5.60) X 10*6/uL Hgb (13.0-17.0) g/dL Hct (39.6-50.0) % MCHC (32.0-37.0) g/dL RDW (11.5-14.5) % MPV (9.5-12.2) fL Absolute Nucleated RBC (0.00-0.00) X 10*3/uL Metamyelocytes % (0-0) % Myelocytes % (0-0) % Eosinophils # (Manual) (0.04-0.35) X 10*3/uL NRBC/100 WBC Diff (0.0-0.0) /100 WBCS Anion Gap 9.90 L (10.00-18.00) mmol/L BUN 30.6 H (9.0-27.0) mg/dL BUN/Creatinine Ratio 27.82 H (12.00-20.00) Ratio Glucose 182 H (70-110) mg/dL POC Glucose (mg/dL) 194 H 294 H (70-110) mg/dL Microbiology - Last 24 Hours (Table) 04/30/22 08:00 Blood Culture - Preliminary Blood No Growth after 120 hours 05/04/22 04:30 Stool Culture - Preliminary Stool Assessment and Plan (1) Bacteremia due to Pseudomonas Current Visit: Yes Status: Acute Code(s): R78.81 - BACTEREMIA; B96.5 - P SEUDOMONAS (MALLEI) CAUSING DISEASES [facility] SNOMED Code(s): 1501141768 Plan: 1patient with a Pseudomonas bacteremia in this patient who recently did have extensive abdominal wall reconstruction with myocutaneous flap and panniculectomy with concern for possible abdominal source versus pneumonia as CT abdominal pelvis did not show any intra-abdominal abscess and showed some right lower lobe infiltrate. 2patient to continue Zosyn however will be able to finish therapy with oral Cipro to decrease the burden of antibiotic exposure because of his underlying C. diff 3-patient with C. diff colitis seems to be clinically responding to vancomycin should be continued Time with Patient: Less than 30
[2022-05-05 17:31] LABS: Glucose,Whole Blood 271 mg/dL (70-110)
[2022-05-05 20:26] LABS: Glucose,Whole Blood 220 mg/dL (70-110)
--- NOTE | 2022-05-05 21:36 | P.PN ---
Subjective Progress Note Date: 05/05/22 Patient reports that bowel movements are forming. No further moderate diarrhea for C. diff. Hemoglobin trending downward. Anticipated discharge tomorrow pending stabilization of anemia and significant colitis. Objective - Vital Signs Vital signs: Vital Signs Temp 98.5 F 05/05/22 20:00 Pulse 94 05/05/22 20:59 Resp 16 05/05/22 20:00 BP 95/52 05/05/22 20:00 Pulse Ox 93 L 05/05/22 20:00 FiO2 21 05/02/22 19:19 Intake & Output 05/05/22 05/05/22 05/06/22 06:59 18:59 06:59 Intake Total 1300 Output Total 290 2560 Balance 1010 -2560 Intake: IV 1200 Piperacillin-Tazobactam 3 300 .375 gm In Sodium Chloride 0.9% 100 ml @ 25 mls/hr IVPB Q8H [facility] Rx#: [id number] Sodium Chloride 0.9% 1, 900 000 ml @ 75 mls/hr IV . [id number] [facility] Rx#:[id number] Intake, IV Titration 100 Amount Sodium Ferric Gluconat- 100 Sucrose 125 mg In Sodium Chloride 0.9% 100 ml @ 100 mls/hr IVPB DAILY [facility] Rx#:[id number] Output: Drainage 90 110 Left Groin 60 100 Right Groin 30 10 Urine 200 2450 Other: Voiding Method Urinal Urinal Diaper # Voids 1 # Bowel Movements 4 1 - Labs CBC & Chem 7: 05/05/22 05:46 05/05/22 05:46 Labs: Abnormal Lab Results - Last 24 Hours (Table) 05/05/22 05/05/22 05/05/22 Range/Units 05:46 05:46 07:21 RBC 2.50 L (4.40-5.60) X 10*6/uL Hgb 7.5 L (13.0-17.0) g/dL Hct 23.7 L (39.6-50.0) % MCHC 31.6 L (32.0-37.0) g/dL RDW 15.3 H (11.5-14.5) % MPV 9.3 L (9.5-12.2) fL Absolute Nucleated RBC 0.07 H (0.00-0.00) X 10*3/uL Metamyelocytes % 1 H (0-0) % Myelocytes % 1 H (0-0) % Eosinophils # (Manual) 0.40 H (0.04-0.35) X 10*3/uL NRBC/100 WBC Diff 0.9 H (0.0-0.0) /100 WBCS Anion Gap 9.90 L (10.00-18.00) mmol/L BUN 30.6 H (9.0-27.0) mg/dL BUN/Creatinine Ratio 27.82 H (12.00-20.00) Ratio Glucose 182 H (70-110) mg/dL POC Glucose (mg/dL) 194 H (70-110) mg/dL 05/05/22 05/05/22 05/05/22 Range/Units 11:35 17:30 20:25 RBC (4.40-5.60) X 10*6/uL Hgb (13.0-17.0) g/dL Hct (39.6-50.0) % MCHC (32.0-37.0) g/dL RDW (11.5-14.5) % MPV (9.5-12.2) fL Absolute Nucleated RBC (0.00-0.00) X 10*3/uL Metamyelocytes % (0-0) % Myelocytes % (0-0) % Eosinophils # (Manual) (0.04-0.35) X 10*3/uL NRBC/100 WBC Diff (0.0-0.0) /100 WBCS Anion Gap (10.00-18.00) mmol/L BUN (9.0-27.0) mg/dL BUN/Creatinine Ratio (12.00-20.00) Ratio Glucose (70-110) mg/dL POC Glucose (mg/dL) 294 H 271 H 220 H (70-110) mg/dL Microbiology - Last 24 Hours (Table) 04/30/22 08:00 Blood Culture - Preliminary Blood No Growth after 120 hours 05/04/22 04:30 Stool Culture - Preliminary Stool
--- NOTE | 2022-05-05 22:51 | P.PN ---
Subjective Progress Note Date: 05/05/22 He is on the vancomycin for C diff today, states diarrhea is improved and no BM this morning. He denies abdominal pain, shortness of breath, cough. Continues on zosyn for pseudomonas bacteremia Objective - Vital Signs Vital signs: Vital Signs Temp 98.5 F 05/05/22 20:00 Pulse 102 H 05/05/22 21:52 Resp 16 05/05/22 20:00 BP 126/78 05/05/22 21:52 Pulse Ox 93 L 05/05/22 20:00 FiO2 21 05/02/22 19:19 Intake & Output 05/05/22 05/05/22 05/06/22 06:59 18:59 06:59 Intake Total 1300 Output Total 290 2560 Balance 1010 -2560 Intake: IV 1200 Piperacillin-Tazobactam 3 300 .375 gm In Sodium Chloride 0.9% 100 ml @ 25 mls/hr IVPB Q8H [facility] Rx#: [id number] Sodium Chloride 0.9% 1, 900 000 ml @ 75 mls/hr IV . [id number] [facility] Rx#:[id number] Intake, IV Titration 100 Amount Sodium Ferric Gluconat- 100 Sucrose 125 mg In Sodium Chloride 0.9% 100 ml @ 100 mls/hr IVPB DAILY [facility] Rx#:[id number] Output: Drainage 90 110 Left Groin 60 100 Right Groin 30 10 Urine 200 2450 Other: Voiding Method Urinal Urinal Diaper # Voids 1 # Bowel Movements 4 1 - Exam Gen: well developed, well nourished, NAD CV: RRR, no murmur Lungs: CTAB Abd: wrapped in binder. nontender - Labs CBC & Chem 7: 05/05/22 05:46 05/05/22 05:46 Labs: Abnormal Lab Results - Last 24 Hours (Table) 05/05/22 05/05/22 05/05/22 Range/Units 05:46 05:46 07:21 RBC 2.50 L (4.40-5.60) X 10*6/uL Hgb 7.5 L (13.0-17.0) g/dL Hct 23.7 L (39.6-50.0) % MCHC 31.6 L (32.0-37.0) g/dL RDW 15.3 H (11.5-14.5) % MPV 9.3 L (9.5-12.2) fL Absolute Nucleated RBC 0.07 H (0.00-0.00) X 10*3/uL Metamyelocytes % 1 H (0-0) % Myelocytes % 1 H (0-0) % Eosinophils # (Manual) 0.40 H (0.04-0.35) X 10*3/uL NRBC/100 WBC Diff 0.9 H (0.0-0.0) /100 WBCS Anion Gap 9.90 L (10.00-18.00) mmol/L BUN 30.6 H (9.0-27.0) mg/dL BUN/Creatinine Ratio 27.82 H (12.00-20.00) Ratio Glucose 182 H (70-110) mg/dL POC Glucose (mg/dL) 194 H (70-110) mg/dL 05/05/22 05/05/22 05/05/22 Range/Units 11:35 17:30 20:25 RBC (4.40-5.60) X 10*6/uL Hgb (13.0-17.0) g/dL Hct (39.6-50.0) % MCHC (32.0-37.0) g/dL RDW (11.5-14.5) % MPV (9.5-12.2) fL Absolute Nucleated RBC (0.00-0.00) X 10*3/uL Metamyelocytes % (0-0) % Myelocytes % (0-0) % Eosinophils # (Manual) (0.04-0.35) X 10*3/uL NRBC/100 WBC Diff (0.0-0.0) /100 WBCS Anion Gap (10.00-18.00) mmol/L BUN (9.0-27.0) mg/dL BUN/Creatinine Ratio (12.00-20.00) Ratio Glucose (70-110) mg/dL POC Glucose (mg/dL) 294 H 271 H 220 H (70-110) mg/dL Microbiology - Last 24 Hours (Table) 04/30/22 08:00 Blood Culture - Preliminary Blood No Growth after 120 hours Assessment and Plan Plan: Continue with current management, continue zosyn, plan to transition to cipro on discharge. Continue PO vancomycin for total 14 day course
[2022-05-06] MEDS: PIPERACILLIN-TAZOBACTAM 3.375 GM in SODIUM CHLORIDE 0.9% 100 ML IVPB SCH ×3 (05:38→21:58)
[2022-05-06] MEDS: IPRATROPIUM-ALBUTEROL 3 ML NEB INHALATION SCH ×4 (07:46→19:53)
[2022-05-06 07:51] LABS: Glucose,Whole Blood 157 mg/dL (70-110)
[2022-05-06] MEDS: NOREPINEPHRINE 4 MG in SODIUM CHLORIDE 0.9% 250 ML IV SCH (07:59)
[2022-05-06] MEDS: GABAPENTIN 400 MG CAP PO SCH ×3 (08:33→21:57)
[2022-05-06] MEDS: INSULIN DETEMIR (LEVEMIR) 100 UNIT/ML SYR SQ SCH ×2 (08:33→22:00)
[2022-05-06] MEDS: PANTOPRAZOLE 40 MG/10 ML VIAL IVP SCH ×2 (08:33→21:58)
[2022-05-06] MEDS: SODIUM BICARBONATE TAB 650 MG TAB PO SCH ×2 (08:33→21:58)
[2022-05-06] MEDS: METOPROLOL TARTRATE 50 MG TAB PO SCH ×3 (08:33→21:58)
[2022-05-06] MEDS: FUROSEMIDE 10 MG/ML 4 ML VIAL IV SCH (08:33)
[2022-05-06] MEDS: INSULIN ASPART (NovoLOG) 100 UNIT/ML VIAL SQ SCH ×4 (08:33→22:00)
[2022-05-06] MEDS: LACTOBACILLUS ACIDOPH & BULGAR 1 EACH PACKET PO SCH ×2 (08:33→22:00)
[2022-05-06] MEDS: HYDROcodone/APAP 10-325MG 1 EACH TAB PO PRN ×2 (08:34→15:57)
[2022-05-06] MEDS: TAMSULOSIN 0.4 MG CAP.ER.24H PO SCH ×2 (08:34→21:58)
[2022-05-06] MEDS: VANCOMYCIN 125 MG CAPSULE PO SCH ×4 (08:35→21:58)
--- NOTE | 2022-05-06 08:58 | P.PN ---
Subjective Progress Note Date: 05/06/22 Principal diagnosis: Bacteremia, Sepsis 71-year-old male with history of COPD, diabetes, and sleep apnea, who presented to the emergency department on April 30, 720 in the morning, with mental status changes, and we. The patient was discharged from [facility], on the . He had surgery by Dr. Loredo on April 28. The patient came back into the hospital, at 6:00 this morning. He apparently was found to be profoundly weak at home, according to his , with diarrhea, lethargy, somnolence, and inability to care for himself. The patient is seen in the emergency department, and is currently on BiPAP, with settings of 10/5 and 35%. The patient's getting saline at 150 mL an hour. His primary care provider is Dr. Garcia, and he also sees my partner, Dr. Kraus for COPD. He does use oxygen at home, and also has a home nebulizer machine. On April 28, the patient underwent an abdominal wall reconstruction with myocutaneous bilateral flap advancement, and a panniculectomy. The patient was anxious to be discharged from the hospital, and petitioned the surgeon, and was discharged on April 29. He came back in later that day, at 7 PM, but after waiting for 4 or 5 hours, decided to go home. They came back into the hospital on the morning of the , at 6 AM. White count 16.3, hemoglobin 10.4, hematocrit 32.5, and platelet count 225,000. Blood gases show pO2 of 98, pCO2 of 62, and a pH of 7.20. That was on 35% oxygen. Sodium 139, potassium 5.3, chlorides 107, CO2 25, BUN 75, and creatinine 2.77. Troponin was 0.044 and 0.051. N-terminal proBNP was 593. Progress note dated 05/01/2022. 71-year-old male with history of COPD, diabetes, and sleep apnea, who was seen in the emergency department yesterday. He apparently was admitted with mental status changes. The patient was discharged from [facility] on April 29, after having a surgery done by Dr. Loredo, the day prior. The patient was admitted to the floor, and then was moved to the intensive care unit, overnight, because of worsening respiratory distress, and low blood pressure. I gave the order to start him on some norepinephrine, but the patient never needed to be started on norepinephrine. Currently, he's on 4 L nasal cannula. He is awake and alert. He did use BiPAP throughout the night, with settings of 10/5 and 35%. Today's postop day #3. The blood cultures showed evidence of gram-negative bacilli. They have yet to be identified. He is currently on Zosyn. White count 9.4, hemoglobin 9.7, hematocrit 30.6, and platelet count 253,000. Sodium 141, pot assium 4.9, chlorides 114, CO2 19, BUN 84, and creatinine 2.70. Cortisol level was 24. Blood cultures are showing evidence of Pseudomonas aeruginosa. Sensitivities are currently pending. Progress note dated 05/02/2022. 71-year-old male seen in consultation 2 days ago. The patient is seen again in the intensive care unit, room 252. The patient's on 4 L of oxygen. He is getting saline at 75 mL an hour. He is getting 1 unit of packed red blood cells. The patient apparently is been having some dark diarrhea, and coffee- ground emesis. Also, the patient appears to be stable. Lab work includes a white count 10.2, hemoglobin 7.9, hematocrit 24.2, and a platelet count is normal. Sodium 143, potassium 4.4, chlorides 117, CO2 24, BUN 72, and creatinine 1.5. Calcium 7.6. Blood cultures were positive for pseudomonas aeruginosa. The patient remains on Zosyn. Progress note dated 05/03/2022. 71-year-old male seen again today in room 252. The patient's currently on 4 L of oxygen. Getting saline at KVO. The patient's received a total of 2 units of packed red blood cells. The patient did bring in his home CPAP device, and used it last night. The patient can be transferred to the general medical floor, without telemetry. Blood cultures are positive for Pseudomonas. He is cur rently on Zosyn. Sensitivities are currently pending. White count 7.5, hemoglobin 8.3, hematocrit 25.1, with a normal platelet count. Sodium 143, potassium 4.4, chlorides 117, CO2 22, BUN 62, and creatinine 1.10. Progress note dated 05/04/2022. 71-year-old male seen in room 533. He is doing well. Currently, he's on 2 L of oxygen. He's not receiving any IV fluids. He was transferred out of the intensive care unit yesterday. He denies any difficulty breathing, shortness of breath, cough, or chest pain. White count 7, hemoglobin 8, hematocrit 24.1, and platelet count was normal. Sodium 142, potassium 4, chlorides 113, CO2 29, BUN 36, creatinine 0.94. He did test positive for C. difficile colitis. Blood cultures from April 30 were positive for pseudomonas aeruginosa. It is se nsitive to Zosyn. I'm evaluating this patient in follow-up on 05/05/2022 on a [facility]. Patient is fairly comfortable on room air, he sitting at the edge of the bed, he is asking when he can go home. vital signs remained stable, and patient has remained off vasopressors. no IV maintenance fluids are infusing. A stool culture for C. diff did come back positive, and he is maintained on oral vancomycin. he remains on Zosyn for a previous positive blood culture for pseudomonas. no new chest x-ray from today to review. he continues to receive PRN DuoNeb inhalation. CBC is stable, showing some anemia. WBC count 8, hemoglobin 7.5, hematocrit 23.7, platelets 166,000. BMP is also stable with a sodium of 142, potassium 3.9, chloride 105, serum CO2 27, BUN 30.6, creatinine 1.1, glucose 182. I'm reevaluating this patient today on 05/06/2022 and a general medical floor. He is currently comfortable, sitting at that edge of the bed, on 2 L nasal cannula. No IV maintenance fluids infusing. Remains on oral vancomycin for positive C. diff culture, and his episodes of diarrhea are less. Continues on IV Zosyn. No new chest x-ray or labs to review today. Patient is telling me t hat he is ready to go home. Objective - Vital Signs Vital signs: Vital Signs Temp 97.7 F 05/06/22 07:40 Pulse 104 H 05/06/22 08:00 Resp 20 05/06/22 07:40 BP 122/76 05/06/22 07:40 Pulse Ox 95 05/06/22 07:40 FiO2 21 05/02/22 19:19 Intake & Output 05/05/22 05/06/22 05/06/22 18:59 06:59 18:59 Intake Total 930 Output Total 2560 780 Balance -2560 150 Intake: IV 340 Piperacillin-Tazobactam 3 100 .375 gm In Sodium Chloride 0.9% 100 ml @ 25 mls/hr IVPB Q8H [facility] Rx#: [id number] Sodium Chloride 0.9% 1, 240 000 ml @ 75 mls/hr IV . [id number] [facility] Rx#:[id number] Oral 590 Output: Drainage 110 80 Left Groin 100 70 Right Groin 10 10 Urine 2450 700 Other: Voiding Method Urinal Urinal # Voids 1 # Bowel Movements 1 - Exam No acute distress, awake and alert, currently on 2 L nasal cannula HEENT examination is grossly unremarkable. Neck supple. Full range of motion. No adenopathy thyromegaly or neck vein distention. Cardiovascular examination reveals regular rhythm rate. S1-S2 normal. No S3 or S4. No discernible murmur noted. Heart sounds are distant. Heart rate 104 bpm. Lungs reveal scattered bilateral rhonchi. No wheezes. No crackles. Breath sounds are equal bilaterally.oxygen saturation 95% on 2 L nasal cannula.. Abdomen soft, without bowel sounds. Abdomen obese. Drains are noted at the lower portion of the abdomen. Extremities are intact. No cyanosis or clubbing. Trace edema noted. Skin is without rash or lesion. Neurologic examination reveals the patient to be awake and alert. - Labs CBC & Chem 7: 05/05/22 05:46 05/05/22 05:46 Labs: Abnormal Lab Results - Last 24 Hours (Table) 05/05/22 05/05/22 05/05/22 Range/Units 05:46 05:46 11:35 RBC 2.50 L (4.40-5.60) X 10*6/uL Hgb 7.5 L (13.0-17.0) g/dL Hct 23.7 L (39.6-50.0) % MCHC 31.6 L (32.0-37.0) g/dL RDW 15.3 H (11.5-14.5) % MPV 9.3 L (9.5-12.2) fL Absolute Nucleated RBC 0.07 H (0.00-0.00) X 10*3/uL Metamyelocytes % 1 H (0-0) % Myelocytes % 1 H (0-0) % Eosinophils # (Manual) 0.40 H (0.04-0.35) X 10*3/uL NRBC/100 WBC Diff 0.9 H (0.0-0.0) /100 WBCS Anion Gap 9.90 L (10.00-18.00) mmol/L BUN 30.6 H (9.0-27.0) mg/dL BUN/Creatinine Ratio 27.82 H (12.00-20.00) Ratio Glucose 182 H (70-110) mg/dL POC Glucose (mg/dL) 294 H (70-110) mg/dL 05/05/22 05/05/22 05/06/22 Range/Units 17:30 20:25 07:34 RBC (4.40-5.60) X 10*6/uL Hgb (13.0-17.0) g/dL Hct (39.6-50.0) % MCHC (32.0-37.0) g/dL RDW (11.5-14.5) % MPV (9.5-12.2) fL Absolute Nucleated RBC (0.00-0.00) X 10*3/uL Metamyelocytes % (0-0) % Myelocytes % (0-0) % Eosinophils # (Manual) (0.04-0.35) X 10*3/uL NRBC/100 WBC Diff (0.0-0.0) /100 WBCS Anion Gap (10.00-18.00) mmol/L BUN (9.0-27.0) mg/dL BUN/Creatinine Ratio (12.00-20.00) Ratio Glucose (70-110) mg/dL POC Glucose (mg/dL) 271 H 220 H 157 H (70-110) mg/dL Microbiology - Last 24 Hours (Table) 04/30/22 08:00 Blood Culture - Preliminary Blood No Growth after 120 hours Assessment and Plan Assessment: Postop day #8, status post abdominal wall reconstruction with myocutaneous bilateral flap advancement, and panniculectomy. 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 Rule out non-ST segment elevation myocardial infarction. Pseudomonas aeruginosa bacteremia. History of COPD. Obesity. History of diabetes mellitus. History of sleep apnea syndrome. History of CVA. History of hyperlipidemia. History of hypertension. History of osteoarthritis. History of BPH. Plan: patient's medications and labs reviewed maintain oral vancomycin for positive C. diff Able to tolerate oral fluids Supplemental oxygen to maintain oxygen saturation of 92% or greater. From a pulmonary standpoint, patient is cleared for discharge. I have personally seen and examined the patient, performed the documentation and the assessment and plan as written. Number of minutes spent on the visit: [ 10]. Time with Patient: Less than 30
--- NOTE | 2022-05-06 10:56 | P.PN ---
Subjective Patient is seen in follow-up for acute kidney injury. Renal function improving. Nonoliguric. No significant complaints today Serum creatinine 1.1 on 05/05/2022 Maintained on IV Lasix 40 mg daily Objective - Vital Signs Vital signs: Vital Signs Temp 97.7 F 05/06/22 07:40 Pulse 104 H 05/06/22 08:00 Resp 20 05/06/22 07:40 BP 122/76 05/06/22 07:40 Pulse Ox 95 05/06/22 07:40 FiO2 21 05/02/22 19:19 Intake & Output 05/05/22 05/06/22 05/06/22 18:59 06:59 18:59 Intake Total 930 Output Total 2560 780 Balance -2560 150 Intake: IV 340 Piperacillin-Tazobactam 3 100 .375 gm In Sodium Chloride 0.9% 100 ml @ 25 mls/hr IVPB Q8H [facility] Rx#: [id number] Sodium Chloride 0.9% 1, 240 000 ml @ 75 mls/hr IV . [id number] [facility] Rx#:[id number] Oral 590 Output: Drainage 110 80 Left Groin 100 70 Right Groin 10 10 Urine 2450 700 Other: Voiding Method Urinal Urinal # Voids 1 # Bowel Movements 1 - Exam Awake, comfortable, no acute distress Patient is alert oriented 3 Abdomen is soft nontender Examination lower extremities shows edema 2+ bilaterally DIELECTRIC TESTER exam grossly intact - Labs CBC & Chem 7: 05/05/22 05:46 05/05/22 05:46 Labs: Abnormal Lab Results - Last 24 Hours (Table) 05/05/22 05/05/22 05/05/22 Range/Units 11:35 17:30 20:25 POC Glucose (mg/dL) 294 H 271 H 220 H (70-110) mg/dL 05/06/22 Range/Units 07:34 POC Glucose (mg/dL) 157 H (70-110) mg/dL Microbiology - Last 24 Hours (Table) 04/30/22 08:00 Blood Culture - Final Blood No Growth after 144 hours Assessment and Plan Assessment: 1. Acute kidney injury secondary to hemodynamic ATN. Baseline creatinine near 1 and was 2.77 on admission - 1.1. Nonoliguric. No hydronephrosis noted on CAT scan. Left kidney smaller in size. UA benign. 2. Status post abdominal wall reconstruction and panniculectomy on 04/28/2022. 3. Hyperkalemia secondary to acute kidney injury and hyperglycemia. Resolved. 4. Diabetes mellitus. 5. Metabolic acidosis secondary to acute kidney injury and IV fluids. On oral bicarb. 6. Pseudomonas aeruginosa bacteremia on abx. ID following. 7. GI bleed status post blood transfusion this admission. Hemoglobin 8.3 today. 8. Volume overload. Plan: Patient will need oral Lasix upon discharge. He is encouraged to increase oral intake and follow-up as outpatient for monitoring of volume status.
[2022-05-06 11:35] LABS: Glucose,Whole Blood 204 mg/dL (70-110)
[2022-05-06 15:37] LABS: Basophils % (A) 0 %; Eosinophils # (A) 0.4 k/uL (0-0.7); Eosinophils % (A) 6 %; HCT 25.8 % (39.0-53.0); HGB 8.6 gm/dL (13.0-17.5); Hypochromasia Slight; Lymphocytes # (A) 1.2 k/uL (1.0-4.8); Lymphocytes % (A) 14 %; MCH 31.7 pg (25.0-35.0); MCHC 33.3 g/dL (31.0-37.0); MCV 95.2 fL (80.0-100.0); Mean Platelet Volume 7.8; Monocytes # (A) 0.5 k/uL (0-1.0); Monocytes % (A) 6 %; Neutrophils # (A) 5.8 k/uL (1.3-7.7); Neutrophils % (A) 72 %; Platelet Count 211 k/uL (150-450); Poikilocytosis Slight; RBC 2.71 m/uL (4.30-5.90); RDW 15.7 % (11.5-15.5)
--- NOTE | 2022-05-06 15:45 | P.DS ---
Providers Date of admission: 04/30/22 09:31 Expected date of discharge: 05/06/22 Attending physician: Marti Heck Consults: 04/30/22 09:28 Consult Physician Urgent Consulting Provider: Ben Gonzalez Consult Reason/Comments: mindi Do you want consulting provider notified?: Yes 04/30/22 09:30 Consult Physician Urgent Consulting Provider: Raul Borja Consult Reason/Comments: hypercapnic resp failure Do you want consulting provider notified?: Yes 04/30/22 09:36 Consult Physician Urgent Consulting Provider: Sebastian Garcia Consult Reason/Comments: hypotension, bipap dependant resp failure, nstemi Do you want consulting provider notified?: Yes 04/30/22 10:34 Consult Physician Stat Consulting Provider: Marti Heck Consult Reason/Comments: Post surgical complications Do you want consulting provider notified?: Yes 05/01/22 06:00 Consult Physician Urgent Consulting Provider: Krystian Mccloud Consult Reason/Comments: Positive blood cultures Do you want consulting provider notified?: Already Contacted Primary care physician: Sebastian Garcia MD Hospital Course: Discharge diagnosis 1. Status post abdominal wall reconstruction with myocutaneous bilateral flap advancement and panniculectomy 2. Alveolar hypoventilation and possibly related to excessive narcotics 3. Pseudomonas bacteremia 4. Acute kidney injury secondary to ATN 5. Hyperkalemia resolved 6. New onset atrial fibrillation and followed by cardiology 7. Elevated troponin likely due to hypoxia per cardiology 8. History of obstructive sleep apnea 9. Diabetes mellitus 10. Metabolic encephalopathy resolved 11. Atelectasis 12. C. diff colitis Hospital course This is a 71-year-old male who had recent hospitalization for abdominal wall reconstruction with myocutaneous bilateral flap advancement and panniculectomy. Patient presented back to the hospital with diarrhea and altered mental status changes. He required ICU admission. Patient was followed by multiple consul tants. Patient did have evidence of C. diff colitis. Also Pseudomonas bacteremia. Followed closely by infectious disease. He has received antibiotics and oral vancomycin for the C. diff colitis. His diarrhea has resolved. He is tolerating diet. He denies any abdominal plain. Denies any nausea or vomiting. He is afebrile. Anticipating discharge later this evening after seen by surgeon. Physician Imaging Analyst note has been reviewed by physician. Signing provider agrees with the documented findings, assessment, and plan of care. Patient Condition at Discharge: Stable Plan - Discharge Summary Discharge Rx Participant: Yes New Discharge Prescriptions: No Action carvediloL 25 mg PO BID Tamsulosin [Flomax] 0.4 mg PO BID Multivitamins, Thera [Multivitamin (formulary)] 1 tab PO HS Atorvastatin [Lipitor] 40 mg PO HS #30 tablet Gabapentin 800 mg PO TID Hydrocodone/Acetaminophen [Hydrocodone/Acetaminophen 10-300 mg] 1 tab PO TID PRN PRN Reason: Pain Insulin Glargine [Lantus Vial] 16 unit SQ QAM Discharge Medication List Tamsulosin [Flomax] 0.4 mg PO BID 08/11/17 [History] carvediloL 25 mg PO BID 08/11/17 [History] Multivitamins, Thera [Multivitamin (formulary)] 1 tab PO HS 08/22/17 [History] Atorvastatin [Lipitor] 40 mg PO HS #30 tablet 09/03/17 [Rx] Gabapentin 800 mg PO TID 06/23/18 [History] Hydrocodone/Acetaminophen [Hydrocodone/Acetaminophen 10-300 mg] 1 tab PO TID PRN 06/23/18 [History] Insulin Glargine [Lantus Vial] 16 unit SQ QAM 01/01/22 [History] Follow up Appointment(s)/Referral(s): Sebastian Garcia MD [Primary Care Provider] - 1-2 days [facility], [NON-STAFF] - As Needed
[2022-05-06 15:47] LABS: African American GFR (CKD) 84 (>60 ml/min/1.73 sqM); Anion Gap 6 mmol/L; Blood Urea Nitrogen 30 mg/dL (9-20); Calcium 8.6 mg/dL (8.4-10.2); Carbon Dioxide 32 mmol/L (22-30); Chloride 102 mmol/L (98-107); Glucose 192 mg/dL (74-99); Non-African American GFR(CKD) 73 (>60 ml/min/1.73 sqM); Potassium 3.5 mmol/L (3.5-5.1); Sodium 140 mmol/L (137-145)
[2022-05-06 17:28] LABS: Glucose,Whole Blood 158 mg/dL (70-110)
--- NOTE | 2022-05-06 18:20 | P.PN ---
Subjective Progress Note Date: 05/06/22 Principal diagnosis: Pseudomonas bacteremia and C. diff colitis Patient is a 71-year-old male with a past medical history significant for COPD diabetes mellitus sleep apnea in this patient who recently did have a abdominal wall reconstruction with myocutaneous bilateral flap panniculectomy procedure completed on 04/28/2022 patient was subsequently discharged home, boby sahni presenting back to the hospital 04/30/2022 for evaluation of weakness and concern for possible abdominal drain not working, CT of abdominal pelvis did not show any drainable abscess patient did have a positive blood culture for pseudomonas aeruginosa. On today's evaluation that is 05/06/2022, the patient remains to be afebrile, the patient is breathing comfortably on the 2 L nasal cannula, the patient denies any chest pain or shortness of breath, the patient denies any abdominal pain and the patient mention he did have a soft bowel movement feeling better wants to go home Objective - Vital Signs Vital signs: Vital Signs Temp 97.7 F 05/06/22 07:40 Pulse 104 H 05/06/22 08:00 Resp 20 05/06/22 07:40 BP 122/76 05/06/22 07:40 Pulse Ox 95 05/06/22 07:40 FiO2 21 05/02/22 19:19 Intake & Output 05/05/22 05/06/22 05/06/22 18:59 06:59 18:59 Intake Total 930 Output Total 2560 780 250 Balance -2560 150 -250 Intake: IV 340 Piperacillin-Tazobactam 3 100 .375 gm In Sodium Chloride 0.9% 100 ml @ 25 mls/hr IVPB Q8H [facility] Rx#: [id number] Sodium Chloride 0.9% 1, 240 000 ml @ 75 mls/hr IV . [id number] [facility] Rx#:[id number] Oral 590 Output: Drainage 110 80 Left Groin 100 70 Right Groin 10 10 Urine 2450 700 250 Other: Voiding Method Urinal Urinal # Voids 1 # Bowel Movements 1 - Exam GENERAL DESCRIPTION: An elderly male up in the chair RESPIRATORY SYSTEM: Unlabored breathing , decreased breath sounds at bases HEART: S1 S2 regular rate and rhythm , ABDOMEN: Soft , abdominal binder is on, no tenderness EXTREMITIES: No edema feet - Labs CBC & Chem 7: 05/06/22 15:14 05/06/22 15:14 Labs: Abnormal Lab Results - Last 24 Hours (Table) 05/05/22 05/05/22 05/05/22 Range/Units 11:35 17:30 20:25 POC Glucose (mg/dL) 294 H 271 H 220 H (70-110) mg/dL 05/06/22 Range/Units 07:34 POC Glucose (mg/dL) 157 H (70-110) mg/dL Microbiology - Last 24 Hours (Table) 04/30/22 08:00 Blood Culture - Final Blood No Growth after 144 hours Assessment and Plan (1) Bacteremia due to Pseudomonas Current Visit: Yes Status: Acute Code(s): R78.81 - BACTEREMIA; B96.5 - PSEUDOMONAS (MALLEI) CAUSING DISEASES [facility] SNOMED Code(s): 5248456671 Plan: 1patient with a Pseudomonas bacteremia in this patient who recently did have extensive abdominal wall reconstruction with myocutaneous flap and panniculectomy with concern for possible abdominal source versus pneumonia as CT abdominal pelvis did not show any intra-abdominal abscess and showed some right lower lobe infiltrate. 2 patient with C. diff colitis seems to be clinically responding to vancomycin , prescription for oral vancomycin was sent to the pharmacy for 10 days 3-Pseudomonas bacteremia for discussion with the surgeon no clinical suspicious for intra-abdominal abscess questionable pneumonia to decrease the burden of antibiotic exposure and the patient did have a C. diff colitis we will give oral Cipro 750 mg twice a day for 10 days dose was confirmed With the Pharmacist and a close outpatient follow-up Time with Patient: Less than 30
[2022-05-06 20:21] LABS: Glucose,Whole Blood 133 mg/dL (70-110)
[2022-05-07] MEDS: HYDROcodone/APAP 10-325MG 1 EACH TAB PO PRN ×2 (00:31→09:31)
[2022-05-07] MEDS: PIPERACILLIN-TAZOBACTAM 3.375 GM in SODIUM CHLORIDE 0.9% 100 ML IVPB SCH ×2 (05:42→14:28)
[2022-05-07 07:44] LABS: Glucose,Whole Blood 146 mg/dL (70-110)
[2022-05-07] MEDS: IPRATROPIUM-ALBUTEROL 3 ML NEB INHALATION SCH ×2 (07:53→11:57)
--- NOTE | 2022-05-07 08:29 | P.PN ---
Subjective Progress Note Date: 05/06/22 Pt continues on IV zosyn and PO vancomycin. He denies diarrhea or abdominal pain today. Reports he is feeling well and ready to go home. Objective - Vital Signs Vital signs: Vital Signs Temp 97.9 F 05/07/22 07:33 Pulse 108 H 05/07/22 08:04 Resp 18 05/07/22 07:33 BP 126/75 05/07/22 07:33 Pulse Ox 99 05/07/22 07:54 FiO2 21 05/02/22 19:19 Intake & Output 05/06/22 05/07/22 05/07/22 18:59 06:59 18:59 Intake Total 800 Output Total 325 100 Balance -325 700 Intake: IV 200 Piperacillin-Tazobactam 3 200 .375 gm In Sodium Chloride 0.9% 100 ml @ 25 mls/hr IVPB Q8H [facility] Rx#: [id number] Oral 600 Output: Drainage 75 100 Left Groin 60 80 Right Groin 15 20 Urine 250 Other: Voiding Method Urinal Urinal # Voids 2 - Exam Gen: well developed, well nourished, NAD CV: RRR, no murmur Lungs: CTAB Abd: wrapped in binder. nontender - Labs CBC & Chem 7: 05/06/22 15:14 05/06/22 15:14 Labs: Abnormal Lab Results - Last 24 Hours (Table) 05/06/22 05/06/22 05/06/22 Range/Units 11:31 15:14 15:14 RBC 2.71 L (4.30-5.90) m/uL Hgb 8.6 L (13.0-17.5) gm/dL Hct 25.8 L (39.0-53.0) % RDW 15.7 H (11.5-15.5) % Carbon Dioxide 32 H (22-30) mmol/L BUN 30 H (9-20) mg/dL Glucose 192 H (74-99) mg/dL POC Glucose (mg/dL) 204 H (70-110) mg/dL 05/06/22 05/06/22 05/07/22 Range/Units 17:05 20:19 07:35 RBC (4.30-5.90) m/uL Hgb (13.0-17.5) gm/dL Hct (39.0-53.0) % RDW (11.5-15.5) % Carbon Dioxide (22-30) mmol/L BUN (9-20) mg/dL Glucose (74-99) mg/dL POC Glucose (mg/dL) 158 H 133 H 146 H (70-110) mg/dL Microbiology - Last 24 Hours (Table) 05/04/22 04:30 Stool Culture - Preliminary Stool 05/05/22 15:22 Blood Culture - Preliminary Blood No Growth after 24 hours 04/30/22 08:00 Blood Culture - Final Blood No Growth after 144 hours Assessment and Plan Plan: Continue with current management, continue zosyn, plan to transition to cipro on discharge. Continue PO vancomycin for total 14 day course. Medically stable for discharge
[2022-05-07] MEDS: INSULIN ASPART (NovoLOG) 100 UNIT/ML VIAL SQ SCH ×2 (09:10→12:26)
[2022-05-07] MEDS: INSULIN DETEMIR (LEVEMIR) 100 UNIT/ML SYR SQ SCH (09:30)
[2022-05-07] MEDS: PANTOPRAZOLE 40 MG/10 ML VIAL IVP SCH (09:30)
[2022-05-07] MEDS: VANCOMYCIN 125 MG CAPSULE PO SCH ×2 (09:31→12:26)
[2022-05-07] MEDS: LACTOBACILLUS ACIDOPH & BULGAR 1 EACH PACKET PO SCH (09:31)
[2022-05-07] MEDS: METOPROLOL TARTRATE 50 MG TAB PO SCH (09:31)
[2022-05-07] MEDS: FUROSEMIDE 10 MG/ML 4 ML VIAL IV SCH (09:31)
[2022-05-07] MEDS: SODIUM BICARBONATE TAB 650 MG TAB PO SCH (09:31)
[2022-05-07] MEDS: TAMSULOSIN 0.4 MG CAP.ER.24H PO SCH (09:31)
[2022-05-07] MEDS: GABAPENTIN 400 MG CAP PO SCH (09:31)
[2022-05-07 11:39] LABS: Glucose,Whole Blood 220 mg/dL (70-110)
[2022-05-07 12:52] VITALS: BP 132/68; PULSE 106; RESP 16; TEMP 97.7
--- NOTE | 2022-05-07 13:15 | P.PN ---
Subjective Progress Note Date: 05/07/22 This is a 71-year-old gentleman status post abdominal wall reconstruction with myocutaneous bilateral flap advancement and panniculectomy, pseudomonas bacteremia, C. diff colitis, paroxysmal atrial fibrillation, and multiple other medical issues, maintained on IV Zosyn and oral vancomycin, awaiting discharge. Renal function improving. Tolerating diet with no nausea vomiting. Diarrhea resolved. Denies abdominal pain. Afebrile. Denies chest pain, palpitations or shortness of breath. Objective - Vital Signs Vital signs: Vital Signs Temp 97.9 F 05/07/22 07:33 Pulse 108 H 05/07/22 08:04 Resp 18 05/07/22 07:33 BP 126/75 05/07/22 07:33 Pulse Ox 99 05/07/22 07:54 FiO2 21 05/02/22 19:19 Intake & Output 05/06/22 05/07/22 05/07/22 18:59 06:59 18:59 Intake Total 800 Output Total 325 100 Balance -325 700 Intake: IV 200 Piperacillin-Tazobactam 3 200 .375 gm In Sodium Chloride 0.9% 100 ml @ 25 mls/hr IVPB Q8H [facility] Rx#: [id number] Oral 600 Output: Drainage 75 100 Left Groin 60 80 Right Groin 15 20 Urine 250 Other: Voiding Method Urinal Urinal # Voids 2 - Exam - Exam Gen: well developed, well nourished, sitting up at side of bed, NAD CV: RRR, no murmur Lungs: CTAB Abd: wrapped in binder. nontender - Labs CBC & Chem 7: 05/06/22 15:14 05/06/22 15:14 Labs: Abnormal Lab Results - Last 24 Hours (Table) 05/06/22 05/06/22 05/06/22 Range/Units 11:31 15:14 15:14 RBC 2.71 L (4.30-5.90) m/uL Hgb 8.6 L (13.0-17.5) gm/dL Hct 25.8 L (39.0-53.0) % RDW 15.7 H (11.5-15.5) % Carbon Dioxide 32 H (22-30) mmol/L BUN 30 H (9-20) mg/dL Glucose 192 H (74-99) mg/dL POC Glucose (mg/dL) 204 H (70-110) mg/dL 05/06/22 05/06/22 05/07/22 Range/Units 17:05 20:19 07:35 RBC (4.30-5.90) m/uL Hgb (13.0-17.5) gm/dL Hct (39.0-53.0) % RDW (11.5-15.5) % Carbon Dioxide (22-30) mmol/L BUN (9-20) mg/dL Glucose (74-99) mg/dL POC Glucose (mg/dL) 158 H 133 H 146 H (70-110) mg/dL Microbiology - Last 24 Hours (Table) 05/04/22 04:30 Stool Culture - Preliminary Stool 05/05/22 15:22 Blood Culture - Preliminary Blood No Growth after 24 hours 04/30/22 08:00 Blood Culture - Final Blood No Growth after 144 hours Assessment and Plan Assessment: Status post abdominal wall reconstruction with myocutaneous bilateral flap advancement and panniculectomy Sepsis with Pseudomonas aeruginosa bacteremia, repeat blood cultures reporting no growth. Acute hypoxic and hypercapneic respiratory failure possibly secondary to narcotics Episodes of diarrhea, positive for C. diff, diarrhea resolved Acute renal failure secondary to ATN. History of COPD, not in exacerbation history of sleep apnea syndrome uses a CPAP History of CVA Hypertension history Hyperlipidemia History of osteoarthritis History of BPH Diabetes type 2, hyperglycemia, A1C pending Paroxysmal atrial fibrillation, not on anticoagulation secondary to anemia as per cardiology Plan: Continue on current medication regime ,monitoring and symptomatic treatment. Discharge planning in progress. Antibiotics as per ID. Follow-up with PCP in one week. The impression and plan of care has been dictated as directed. : I performed a history and examination of this patient, discussed the same with the dictator. I agree with the dictator's note ,documented as a scribe. Any additional findings or plans will be noted.
--- NOTE | 2022-05-07 15:19 | P.PN ---
Subjective Progress Note Date: 05/07/22 On 05/07/2022, I'm seeing the patient for a follow-up. The patient is doing extremely well. The patient has no specific complaints. He is currently on room air oxygen. ANGELO drains are still in place. No active diarrhea. No fever or chills. No respiratory distress. Ranges of being made to discharge patient home today. The patient is using the incentive spirometer. No other significant events over the past 24 hours for now. Objective - Vital Signs Vital signs: Vital Signs Temp 97.7 F 05/07/22 12:40 Pulse 106 H 05/07/22 12:40 Resp 16 05/07/22 12:40 BP 132/68 05/07/22 12:40 Pulse Ox 95 05/07/22 12:40 FiO2 21 05/02/22 19:19 Intake & Output 05/06/22 05/07/22 05/07/22 18:59 06:59 18:59 Intake Total 800 Output Total 325 100 700 Balance -325 700 -700 Intake: IV 200 Piperacillin-Tazobactam 3 200 .375 gm In Sodium Chloride 0.9% 100 ml @ 25 mls/hr IVPB Q8H [facility] Rx#: [id number] Oral 600 Output: Drainage 75 100 150 Left Groin 60 80 110 Right Groin 15 20 40 Urine 250 550 Other: Voiding Method Urinal Urinal Urinal # Voids 2 - Exam No acute distress, awake and alert, currently on RA 02 HEENT examination is grossly unremarkable. Neck supple. Full range of motion. No adenopathy thyromegaly or neck vein distention. Cardiovascular examination reveals regular rhythm rate. S1-S2 normal. No S3 or S4. No discernible murmur noted. Heart sounds are distant. Heart rate 104 bpm. Lungs reveal scattered bilateral rhonchi. No wheezes. No crackles. Breath sounds are equal bilaterally.oxygen saturation 95% on 2 L nasal cannula.. Abdomen soft, without bowel sounds. Abdomen obese. Drains are noted at the lower portion of the abdomen. Extremities are intact. No cyanosis or clubbing. Trace edema noted. Skin is without rash or lesion. Neurologic examination reveals the patient to be awake and aler - Labs CBC & Chem 7: 05/06/22 15:14 05/06/22 15:14 Labs: Abnormal Lab Results - Last 24 Hours (Table) 05/06/22 05/06/22 05/06/22 Range/Units 15:14 15:14 17:05 RBC 2.71 L (4.30-5.90) m/uL Hgb 8.6 L (13.0-17.5) gm/dL Hct 25.8 L (39.0-53.0) % RDW 15.7 H (11.5-15.5) % Carbon Dioxide 32 H (22-30) mmol/L BUN 30 H (9-20) mg/dL Glucose 192 H (74-99) mg/dL POC Glucose (mg/dL) 158 H (70-110) mg/dL 05/06/22 05/07/22 05/07/22 Range/Units 20:19 07:35 11:33 RBC (4.30-5.90) m/uL Hgb (13.0-17.5) gm/dL Hct (39.0-53.0) % RDW (11.5-15.5) % Carbon Dioxide (22-30) mmol/L BUN (9-20) mg/dL Glucose (74-99) mg/dL POC Glucose (mg/dL) 133 H 146 H 220 H (70-110) mg/dL Microbiology - Last 24 Hours (Table) 05/04/22 04:30 Stool Culture - Preliminary Stool 05/05/22 15:22 Blood Culture - Preliminary Blood No Growth after 24 hours Assessment and Plan Plan: Postop day #8, status post abdominal wall reconstruction with myocutaneous bilateral flap advancement, and panniculectomy. 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 Rule out non-ST segment elevation myocardial infarction. Pseudomonas aeruginosa bacteremia. History of COPD. Obesity. History of diabetes mellitus. History of sleep apnea syndrome. History of CVA. History of hyperlipidemia. History of hypertension. History of osteoarthritis. History of BPH. Plan: The patient is doing well. No issues for now. Patient is currently on room air oxygen Patient is being discharged home today Management of the surgical drains per general surgery Patient is stable from the pulmonary standpoint
--- NOTE | 2022-05-08 13:24 | P.PN ---
Subjective Progress Note Date: 05/07/22 Principal diagnosis: Pseudomonas bacteremia and C. diff colitis Patient is a 71-year-old male with a past medical history significant for COPD diabetes mellitus sleep apnea in this patient who recently did have a abdominal wall reconstruction with myocutaneous bilateral flap panniculectomy procedure completed on 04/28/2022 patient was subsequently discharged home, boby sahni presenting back to the hospital 04/30/2022 for evaluation of weakness and concern for possible abdominal drain not working, CT of abdominal pelvis did not show any drainable abscess patient did have a positive blood culture for pseudomonas aeruginosa. On today's evaluation that is 05/07/2022, the patient continues to be afebrile, the patient is breathing comfortably on the 2 L nasal cannula, the patient denies chest pain shortness of breath or cough breath, the patient denies any abdominal pain and the patient mention he did have a soft bowel movement , and no new symptoms Objective - Vital Signs Vital signs: Vital Signs Temp 97.9 F 05/07/22 07:33 Pulse 100 05/07/22 12:09 Resp 18 05/07/22 07:33 BP 126/75 05/07/22 07:33 Pulse Ox 99 05/07/22 07:54 FiO2 21 05/02/22 19:19 Intake & Output 05/06/22 05/07/22 05/07/22 18:59 06:59 18:59 Intake Total 800 Output Total 325 100 700 Balance -325 700 -700 Intake: IV 200 Piperacillin-Tazobactam 3 200 .375 gm In Sodium Chloride 0.9% 100 ml @ 25 mls/hr IVPB Q8H [facility] Rx#: [id number] Oral 600 Output: Drainage 75 100 150 Left Groin 60 80 110 Right Groin 15 20 40 Urine 250 550 Other: Voiding Method Urinal Urinal Urinal # Voids 2 - Exam GENERAL DESCRIPTION: An elderly male up in the chair RESPIRATORY SYSTEM: Unlabored breathing , decreased breath sounds at bases HEART: S1 S2 regular rate and rhythm , ABDOMEN: Soft , abdominal binder is on, no tenderness EXTREMITIES: No edema feet - Labs CBC & Chem 7: 05/06/22 15:14 05/06/22 15:14 Labs: Abnormal Lab Results - Last 24 Hours (Table) 01/03/23 01/03/23 01/03/23 Range/Units 15:14 15:14 17:05 RBC 2.71 L (4.30-5.90) m/uL Hgb 8.6 L (13.0-17.5) gm/dL Hct 25.8 L (39.0-53.0) % RDW 15.7 H (11.5-15.5) % Carbon Dioxide 32 H (22-30) mmol/L BUN 30 H (9-20) mg/dL Glucose 192 H (74-99) mg/dL POC Glucose (mg/dL) 158 H (70-110) mg/dL 05/06/22 05/07/22 05/07/22 Range/Units 20:19 07:35 11:33 RBC (4.30-5.90) m/uL Hgb (13.0-17.5) gm/dL Hct (39.0-53.0) % RDW (11.5-15.5) % Carbon Dioxide (22-30) mmol/L BUN (9-20) mg/dL Glucose (74-99) mg/dL POC Glucose (mg/dL) 133 H 146 H 220 H (70-110) mg/dL Microbiology - Last 24 Hours (Table) 05/04/22 04:30 Stool Culture - Preliminary Stool 05/05/22 15:22 Blood Culture - Preliminary Blood No Growth after 24 hours 04/30/22 08:00 Blood Culture - Final Blood No Growth after 144 hours Assessment and Plan (1) Bacteremia due to Pseudomonas Status: Acute Code(s): R78.81 - BACTEREMIA; B96.5 - PSEUDOMONAS (MALLEI) CAUSING DISEASES [facility] SNOMED Code(s): 2672197078 Plan: 1patient with a Pseudomonas bacteremia in this patient who recently did have extensive abdominal wall reconstruction with myocutaneous flap and panniculect antoinette with concern for possible abdominal source versus pneumonia as CT abdominal pelvis did not show any intra-abdominal abscess and showed some right lower lobe infiltrate. 2 patient with C. diff colitis seems to be clinically responding to vancomycin , prescription for oral vancomycin was sent to the pharmacy for 10 days patient has been advised to increase his probiotic and yogurt intake 3-Pseudomonas bacteremia no clinical suspicious for intra-abdominal abscess questionable pneumonia to decrease the burden of antibiotic exposure as the patient did have a C. diff colitis , patient has been advised oral Cipro 750 mg twice a day for 10 days dose and a close outpatient follow-up Time with Patient: Less than 30
--- NOTE | 2022-05-12 14:11 | CDI ---
Documentation Clarification Form Date: 05/12/2022 1:35:19 PM From: Anita Henry Admit Date: 04/30/2022 9:31:00 AM Patient Name: Gene Zuleta Visit Number: [id number] Discharge Date: 05/07/2022 3:47:00 PM ATTENTION: The Clinical Documentation Specialists (CDI) and [facility] Coding Staff appreciate your assistance in clarifying documentation. Please respond to the clarification below the line at the bottom and electronically sign. The CDI & [facility] Coding staff will review the response and follow-up if needed. Please note: Queries are made part of the Legal Health Record. If you have any questions, please contact the author of this message via ITS. Dr. Krystian Mccloud Conflicting documentation has been found in the medical record. As consulting ID physician, please provide clarification. Medical Consult Note 05/[address] Garcia: Severe Sepsis, Blood cultures with Pseudomonas ID Consult Note 05/01 performed by you; Dr Mccloud: Bacteremia due to Pseudomonas History/Risk Factors: 71 year old male- recent surgery- ventral hernia repair with abdominal wall reconstruction and panniculectomy. Abraham drains in place. Hx of COPD, DM, sleep apnea, HTN Clinical Indicators: post-surgery, presented with altered mental status, not feeling well, diarrhea, hypotension, acute respiratory failure, Paroxysmal Afib, JUAN J, final blood cultures- pseudomonas aeruginosa 04/30: BP: 68/26 R: 30 P: 120 T: 98.2 placed on Bipap in ER WBCs: 16.3 Lactic Acid: 2.0 Treatment: ICU management, Zosyn, ID consult, normal saline, Bipap placed in ER, supplemental O2 Please clarify which diagnosis is most appropriate: [ x ] Sepsis due to pseudomonas [ ] Severe Sepsis due to pseudomonas [ ] Bacteremia due to Pseudomonas [ ] Other (please specify) [ ] Unable to determine MTDD
== END 2022-05-07 15:47 | disposition home health service (06) | DRG 871 ==
LOC: EC 07:21 → 3SCARD 09:31 → 2SICU 05-01 00:47 → 5NMEDONC 05-03 11:55
PROVIDERS: ADMIT Surgery Plastic and Reconstructive Surgery; ATTEND Surgery Plastic and Reconstructive Surgery
PROC: 5A09357 Assistance with Respiratory Ventilation, Less than 24 Consecutive Hours, Continuous Positive Airway Pressure (ICD-10-PCS; principal; 2022-04-30)
PROC: 30233N1 Transfusion of Nonautologous Red Blood Cells into Peripheral Vein, Percutaneous Approach (ICD-10-PCS; 2022-05-02)
DX: A41.52 Sepsis due to Pseudomonas (principal); G93.41 Metabolic encephalopathy; J96.01 Acute respiratory failure with hypoxia; J96.02 Acute respiratory failure with hypercapnia; N17.0 Acute kidney failure with tubular necrosis; J98.11 Atelectasis; A04.72 Enterocolitis due to Clostridium difficile, not specified as recurrent; E87.20 Acidosis, unspecified; I95.9 Hypotension, unspecified; I48.0 Paroxysmal atrial fibrillation; E66.01 Morbid (severe) obesity due to excess calories; Z68.39 Body mass index [BMI] 39.0-39.9, adult; N40.0 Benign prostatic hyperplasia without lower urinary tract symptoms; N20.0 Calculus of kidney; N18.9 Chronic kidney disease, unspecified; K43.2 Incisional hernia without obstruction or gangrene; J44.9 Chronic obstructive pulmonary disease, unspecified; G47.33 Obstructive sleep apnea (adult) (pediatric); R65.20 Severe sepsis without septic shock; E11.22 Type 2 diabetes mellitus with diabetic chronic kidney disease; Z66 Do not resuscitate; E11.65 Type 2 diabetes mellitus with hyperglycemia; D50.0 Iron deficiency anemia secondary to blood loss (chronic); B96.5 Pseudomonas (aeruginosa) (mallei) (pseudomallei) as the cause of diseases classified elsewhere; E78.5 Hyperlipidemia, unspecified; E86.0 Dehydration; E87.5 Hyperkalemia; R77.8 Other specified abnormalities of plasma proteins; E87.70 Fluid overload, unspecified; H91.91 Unspecified hearing loss, right ear; T40.2X1A Poisoning by other opioids, accidental (unintentional), initial encounter; I12.9 Hypertensive chronic kidney disease with stage 1 through stage 4 chronic kidney disease, or unspecified chronic kidney disease; G89.29 Other chronic pain; M25.559 Pain in unspecified hip; M19.90 Unspecified osteoarthritis, unspecified site; Z96.651 Presence of right artificial knee joint; Z96.641 Presence of right artificial hip joint; Z91.041 Radiographic dye allergy status; Z91.040 Latex allergy status; Z88.8 Allergy status to other drugs, medicaments and biological substances; Z99.81 Dependence on supplemental oxygen; Z98.84 Bariatric surgery status; Z87.891 Personal history of nicotine dependence; Z86.73 Personal history of transient ischemic attack (TIA), and cerebral infarction without residual deficits; Z79.899 Other long term (current) drug therapy; Z79.4 Long term (current) use of insulin; Z87.828 Personal history of other (healed) physical injury and trauma; Z98.890 Other specified postprocedural states
CPT/HCPCS: 36415; 36600; 71045; 74150; 76770; 80048; 80053; 81001; 82272; 82533; 82728; 82805; 83036; 83540; 83550; 83605; 83735; 83880; 83993; 84145; 84484; 85025; 85027; 85610; 85730; 86850; 86900; 86901; 86920; 87040; 87045; 87046; 87077; 87186; 87324; 93005; 93306; 94640; 94660; 94760; 96360; 96361; 99291

== ENCOUNTER → 2022-05-09 | Outpatient (CLI) | payer MEDICARE ==
[2022-05-09 09:27] VITALS: BP 142/81; PULSE 103; TEMP 98.3; BMI 39.1
--- NOTE | 2022-05-09 18:39 | P.BASOAP ---
Subjective Progress Note Date: 05/09/22 Dressing changes done at bedside. Patient lost 15 pounds. Abdominal binder repositioned. Moderate ecchymoses 20 x 20 cm along abdomen due to recent blood loss. Dressings given to the patient's family. Follow-up the bariatric Center in 5 days. Patient is seen me in 2 weeks. All questions addressed. ANGELO drain strip. No infection. Objective - Vital Signs Vital signs: Vital Signs Temp 98.3 F 05/09/22 09:18 Pulse 103 H 05/09/22 09:18 Resp BP 142/81 05/09/22 09:18 Pulse Ox FiO2 Intake & Output 05/08/22 05/09/22 05/09/22 18:59 06:59 18:59 Weight 120.202 kg Assessment/Plan Plan: Date: 05/09/22 Initial Weight: Initial BMI: Current Weight: 120.202 kg Current BMI: 39.1 Type of Surgery: Total Volume in Band: Previous Volume: Volume Removed: Volume Added: Band Size:
== END ==
LOC: BARWHC3 09:01
PROVIDERS: ATTEND Surgery Plastic and Reconstructive Surgery
DX: E66.01 Morbid (severe) obesity due to excess calories (principal); Z68.39 Body mass index [BMI] 39.0-39.9, adult; Z91.041 Radiographic dye allergy status; Z91.040 Latex allergy status; Z88.8 Allergy status to other drugs, medicaments and biological substances; Z87.891 Personal history of nicotine dependence
CPT/HCPCS: 99212

== ENCOUNTER → 2022-05-20 | Outpatient (CLI) | payer MEDICARE ==
[2022-05-20 10:19] VITALS: BP 122/70; PULSE 113; TEMP 98.8; BMI 37.5
== END ==
LOC: BARWHC3 09:34
PROVIDERS: ATTEND Surgery Plastic and Reconstructive Surgery
DX: Z53.9 Procedure and treatment not carried out, unspecified reason (principal)
CPT/HCPCS: 99212

== ENCOUNTER → 2022-05-28 | Outpatient (CLI) | payer MEDICARE ==
[2022-05-28 13:28] VITALS: BP 130/81; PULSE 111; TEMP 98.4; BMI 37.0
--- NOTE | 2022-05-28 14:53 | P.BASOAP ---
Subjective Progress Note Date: 05/28/22 Bilateral drain output serosanguineous and 40 mL in 24 hours. Ecchymosis along the abdomen model improved. He continues to lose weight. Total weight loss over 30 pounds in little over a month and a half. He feels great. No signs of infection. Patient's happy with the cosmetic result. Protein intake daily 80 g reviewed and confirmed with this family. Abdominal binder adjusted to fit more snug. Maintain dietary intake 80 g or higher. Follow-up in the bariatric center in 1 week for discontinuation of drains for outputs less than 30 mL in 24 hours. Objective - Vital Signs Vital signs: Vital Signs Temp 98.4 F 05/28/22 13:24 Pulse 111 H 05/28/22 13:24 Resp BP 130/81 05/28/22 13:24 Pulse Ox FiO2 Intake & Output 05/27/22 05/28/22 05/28/22 18:59 06:59 18:59 Weight 113.716 kg Assessment/Plan Plan: Date: 05/28/22 Initial Weight: Initial BMI: Current Weight: 113.716 kg Current BMI: 37.0 Type of Surgery: Total Volume in Band: Previous Volume: Volume Removed: Volume Added: Band Size:
== END ==
LOC: BARWHC3 13:04
PROVIDERS: ATTEND Surgery Plastic and Reconstructive Surgery
DX: E66.01 Morbid (severe) obesity due to excess calories (principal); Z53.9 Procedure and treatment not carried out, unspecified reason
CPT/HCPCS: 99211

== ENCOUNTER → 2022-06-04 | Outpatient (CLI) | payer MEDICARE ==
[2022-06-04 13:45] VITALS: BP 98/64; PULSE 97; RESP 12; TEMP 98.6
--- NOTE | 2022-06-04 14:45 | P.BASOAP ---
Subjective Progress Note Date: 06/04/22 He denies syncope but has low blood pressure. Needs medical reconciliation. Drain is serosanguinous. No infection. ANGELO drains removed. Recommend wound care. Abdominal binder re-adjusted. He has lost weight. He is happy with his cosmetic result. He is hypotensive. Recommend BMP. Objective - Vital Signs Vital signs: Vital Signs Temp 98.6 F 06/04/22 13:37 Pulse 97 06/04/22 13:37 Resp 12 06/04/22 13:37 BP 98/64 06/04/22 13:37 Pulse Ox FiO2 Intake & Output 06/03/22 06/04/22 06/04/22 18:59 06:59 18:59 Weight 112.037 kg Assessment/Plan Plan: Date: 06/04/22 Initial Weight: Initial BMI: Current Weight: 112.037 kg Current BMI: Type of Surgery: Total Volume in Band: Previous Volume: Volume Removed: Volume Added: Band Size:
[2022-06-04 23:18] LABS: African American GFR (CKD) 40.2 (60.0-200.0); Anion Gap 9.1 mmol/L (10.00-18.00); BUN/Creat Ratio 11.37 Ratio (12.00-20.00); Blood Urea Nitrogen 21.6 mg/dL (9.0-27.0); Calcium 10.1 mg/dL (8.7-10.3); Carbon Dioxide 30.9 mmol/L (20.0-27.5); Non-African American GFR(CKD) 34.7 (60.0-200.0); Potassium 5.2 mmol/L (3.5-5.5)
== END ==
LOC: BARWHC3 13:15
PROVIDERS: ATTEND Surgery Plastic and Reconstructive Surgery
DX: E66.01 Morbid (severe) obesity due to excess calories (principal); Z68.36 Body mass index [BMI] 36.0-36.9, adult; Z91.041 Radiographic dye allergy status; Z91.040 Latex allergy status; Z87.891 Personal history of nicotine dependence; Z88.8 Allergy status to other drugs, medicaments and biological substances
CPT/HCPCS: 80048; 36415; G0463; 99212

== ENCOUNTER → 2022-06-11 | Outpatient (CLI) | payer MEDICARE ==
[2022-06-11 14:02] VITALS: BP 131/83; PULSE 103; TEMP 98.2; BMI 36.4
--- NOTE | 2022-06-11 14:49 | P.BASOAP ---
Subjective Progress Note Date: 06/11/22 He is doing well. Weight is stable. No fluid. He reports new reflux. Recommend US with aspiration of seroma. Binder for 2 weeks. FU in 3 weeks. Objective - Vital Signs Vital signs: Vital Signs Temp 98.2 F 06/11/22 13:59 Pulse 103 H 06/11/22 13:59 Resp BP 131/83 06/11/22 13:59 Pulse Ox FiO2 Intake & Output 06/10/22 06/11/22 06/11/22 18:59 06:59 18:59 Weight 112.037 kg Assessment/Plan Plan: Date: 06/11/22 Initial Weight: Initial BMI: Current Weight: 112.037 kg Current BMI: 36.4 Type of Surgery: Total Volume in Band: Previous Volume: Volume Removed: Volume Added: Band Size:
== END ==
LOC: BARWHC3 13:33
PROVIDERS: ATTEND Surgery Plastic and Reconstructive Surgery
DX: E66.01 Morbid (severe) obesity due to excess calories (principal); Z53.9 Procedure and treatment not carried out, unspecified reason
CPT/HCPCS: 99211

== ENCOUNTER 2022-07-15 08:48 | Day surgery (SDC) | payer MEDICARE ==
[2022-07-15 09:14] VITALS: RESP 18; TEMP 97.5
[2022-07-15 10:06] VITALS: BP 152/72; PULSE 89
--- NOTE | 2022-07-15 12:01 | US ---
ULTRASOUND GUIDED SEROMA DRAINAGE: CLINICAL HISTORY: Postoperative anterior abdominal wall seroma FINDINGS: The procedure was explained to the patient. The risks, complications, benefits and alternatives were discussed and any questions were answered. Informed consent was obtained. Patient was placed supin e on the ultrasound table and prepped and draped in the usual sterile fashion. Utilizing a 25 gauge needle, access into the fluid collection is achieved and there is removal proximal and 500 cc of sero us yellow fluid. Patient was stable throughout the procedure. All elements of maximal barrier and sterile technique were utilized. IMPRESSION: 1. Successful ultrasound guided seroma aspiration.
== END 2022-07-15 09:50 ==
LOC: RADPROMAIN 08:48
PROVIDERS: ATTEND Surgery Plastic and Reconstructive Surgery
DX: L76.33 Postprocedural seroma of skin and subcutaneous tissue following a dermatologic procedure (principal)
CPT/HCPCS: 10030; 36415; 76942

== ENCOUNTER → 2022-08-18 | Outpatient (CLI) | payer MEDICARE ==
[2022-08-18 22:12] LABS: % Iron Saturation 13.14 (15.00-50.00); Albumin/Globulin Ratio 1.45 (1.60-3.17); Anion Gap 11.6 mmol/L (10.00-18.00); BUN/Creat Ratio 18.58 Ratio (12.00-20.00); Blood Urea Nitrogen 18.3 mg/dL (9.0-27.0); Calcium 9.6 mg/dL (8.7-10.3); Carbon Dioxide 29.7 mmol/L (20.0-27.5); Globulin 2.8 g/dL (1.6-3.3); Magnesium 1.9 mg/dL (1.5-2.4); Non-African American GFR(CKD) 76.8 (60.0-200.0); Phosphorus 3.5 mg/dL (2.4-5.1); Potassium 4.3 mmol/L (3.5-5.5); Total Bilirubin 0.3 mg/dL (0.30-1.20); Total Protein 6.8 g/dL (6.2-8.2); Uric Acid 5.5 mg/dL (3.7-8.7)
[2022-08-18 22:24] LABS: Ferritin 64.2 ng/mL (22.0-322.0)
[2022-08-18 22:34] LABS: Basophils # (A) 0.03 X 10*3/uL (0.00-0.10); Basophils % (A) 0.3 %; Eosinophils # (A) 0.25 X 10*3/uL (0.04-0.35); Eosinophils % (A) 2.8 %; HCT 37.4 % (39.6-50.0); HGB 11.6 g/dL (13.0-17.0); Immature Grans, Automated 0.3 %; Lymphocytes # (A) 1.25 X 10*3/uL (0.90-5.00); Lymphocytes % (A) 14.1 %; MCH 28.4 pg (27.0-32.0); MCV 91.7 fL (80.0-97.0); Mean Platelet Volume 8.9 fL (9.5-12.2); Monocytes # (A) 0.55 X 10*3/uL (0.20-1.00); Monocytes % (A) 6.2 %; NRBC Per 100 WBC 0 /100 WBCS (0.0-0.0); Neutrophils # (A) 6.73 X 10*3/uL (1.80-7.70); Neutrophils % (A) 76.3 %; Platelet Count 188 X 10*3/uL (140-440); RBC 4.08 X 10*6/uL (4.40-5.60); RDW 14.5 % (11.5-14.5); WBC 8.84 X 10*3/uL (4.50-10.00)
[2022-08-19 02:17] LABS: Appearance,Urine Clear (Clear); Bilirubin,Urine Negative (Negative); Blood,Urine Negative (Negative); Color,Urine Yellow (Yellow); Ketones,Urine Negative (Negative); Nitrite,Urine Negative (Negative); Specific Gravity,Urine 1.012 (1.001-1.030); Urobilinogen,Urine 0.2 (0.2,1.0)
[2022-08-19 02:52] LABS: Urine Creatinine 58.6 mg/dL (39.0-259.0)
== END | disposition home or self-care (01) ==
LOC: LABWHC1 14:02
PROVIDERS: ATTEND Nurse Practitioner Family
DX: E55.9 Vitamin D deficiency, unspecified (principal); M10.9 Gout, unspecified; N25.81 Secondary hyperparathyroidism of renal origin; N39.0 Urinary tract infection, site not specified; D63.1 Anemia in chronic kidney disease; N18.2 Chronic kidney disease, stage 2 (mild)
CPT/HCPCS: 36415; 80053; 81003; 82043; 82306; 82570; 82728; 83540; 83550; 83735; 83970; 84100; 84550; 85025

== ENCOUNTER → 2022-08-27 | Outpatient (CLI) | payer MEDICARE ==
[2022-08-27 14:13] VITALS: BP 162/84; PULSE 101; TEMP 97.8; BMI 36.9
--- NOTE | 2022-08-27 14:45 | P.BASOAP ---
Subjective Progress Note Date: 08/27/22 Recommend caution with high salt food. Fluid removed from skin. Right nib nib. Follow up as needed. Lost his medications. Objective - Vital Signs Vital signs: Vital Signs Temp 97.8 F 08/27/22 14:11 Pulse 101 H 08/27/22 14:11 Resp BP 162/84 08/27/22 14:11 Pulse Ox FiO2 Intake & Output 08/26/22 08/27/22 08/27/22 18:59 06:59 18:59 Weight 113.398 kg Assessment/Plan Plan: Date: 08/27/22 Initial Weight: Initial BMI: Current Weight: 113.398 kg Current BMI: 36.9 Type of Surgery: Total Volume in Band: Previous Volume: Volume Removed: Volume Added: Band Size:
== END ==
LOC: BARWHC3 13:16
PROVIDERS: ATTEND Surgery Plastic and Reconstructive Surgery
DX: E66.01 Morbid (severe) obesity due to excess calories (principal); Z68.36 Body mass index [BMI] 36.0-36.9, adult; Z91.02 Food additives allergy status; Z91.041 Radiographic dye allergy status; Z91.048 Other nonmedicinal substance allergy status; Z87.891 Personal history of nicotine dependence
CPT/HCPCS: 99211

== ENCOUNTER → 2022-10-24 | Outpatient (CLI) | payer MEDICARE ==
--- NOTE | 2022-10-24 11:45 | CA ---
Lexiscan Nuclear Stress Test Report Name: Gene Zuleta Exam Date: 10/24/2022 10:09 Exam Location: [facility] Ht (in): 69 Wt (lb): 248 BSA: 2.26 Ordering Phys: Sebastian Garcia MD Referring Phys: ORAL, Technologist: J Luis King Age: 71 Gender: M : 1950 Procedure CPT: Indications: I20.9 I25.10 I50.32 ICD-10 Codes: Patient History: DIFFICULTY IN BREATHING, PALPITATIONS, DIABETES, PRIOR TIA, ELEVATED CHOLESTEROL LEVESL, PRIOR SMOKER - QUIT 7 YEARS (1 PPD X 47 YEARS), COPD Medications: Meds past 24 hrs: Pretest Chest Pain: STRESS TEST Lexiscan Protocol Exercise Duration (min:sec): 02:[address] Depressions (mm): Angina Score: Robert Score: Resting HR (bpm): 81 Peak HR (bpm): 97 Resting BP (mmHg): 161 / 88 Peak BP (mmHg): 167 / 80 MPHR: 149 Target HR: 127 % MPHR: 65 METS: 1.0 Total Dose: Peak Dose: Atropine: Double Product: 12005 BP Response: Stress Termination: INFUSION COMPLETE Stress Symptoms: NO SYMPTOMS Stress Summary: ECG ANALYSIS Resting ECG: Atrial fibrillation interventricular conduction delay nonspecific ST-T wave changes Stress ECG: No significant ST segment depression CONCLUSIONS Inconclusive EKG part of the stress test due to baseline EKG abnormalities Nuclear scan reported separately Dr. Sarwat Patel MD (Electronically Signed) Final Date: 24 October 2022 11:44
--- NOTE | 2022-10-24 13:10 | NM ---
EXAMINATION TYPE: NM stress lexiscan cardiolite DATE OF EXAM: 10/24/2022 COMPARISON: NONE CLINICAL INDICATION: Male, 71 years old with history of I25.10; TECHNIQUE: After the intravenous administration of 9.5 mCi Tc 99m Sestamibi - Cardiolite resting SPE CT images acquired 60 minutes post injection. The patient received 0.4mg Lexiscan, 25.5 mCi Tc 99m Sestamibi - Stress images obtained [address] injection FINDINGS: Review of stress and rest SPECT images demonstrates no distinct stress-induced reversible perfusion a bnormality. Fixed defect involving the apex and inferior wall some of which likely is artifactual. G ated analysis shows normal wall motion with an estimated left ventricular ejection fraction of 41 %. IMPRESSION: No scintigraphic evidence for reversible ischemia. Ejection fraction only 41% correlate clinically.
== END | disposition home or self-care (01) ==
LOC: RADNMMAIN 08:17
PROVIDERS: ATTEND Family Medicine
DX: I20.9 Angina pectoris, unspecified (principal); I50.32 Chronic diastolic (congestive) heart failure
CPT/HCPCS: 93017; 78452; A9500

== ENCOUNTER → 2023-07-30 | Outpatient (CLI) | payer MEDICARE ==
[2023-07-30 19:28] LABS: Appearance,Urine Clear (Clear); Bilirubin,Urine Negative (Negative); Blood,Urine Negative (Negative); Color,Urine Yellow (Yellow); Ketones,Urine Negative (Negative); Nitrite,Urine Negative (Negative); PH, Urine 6.5
[2023-07-30 19:41] LABS: HCT 45.3 % (39.6-50.0); HGB 14.5 g/dL (13.0-17.0); Mean Platelet Volume 9.6 FL (9.5-12.2); NRBC Per 100 WBC 0 X 10*3/uL (0.00-0.01); Platelet Count 165 X 10*3/uL (140-440); RBC 4.67 X 10*6/uL (4.40-5.60); RDW 13.1 % (11.5-14.5); WBC 5.95 X 10*3/uL (4.50-10.00)
[2023-07-30 21:27] LABS: % Iron Saturation 38.54 (15.00-50.00); ALT 15 U/L (10-49); AST 22 U/L (14-35); Albumin 4.1 g/dL (3.8-4.9); Albumin/Globulin Ratio 1.64 Ratio (1.60-3.17); Alkaline Phosphatase 147 U/L (41-126); BUN/Creat Ratio 25.67 Ratio (12.00-20.00); Blood Urea Nitrogen 23.1 mg/dL (9.0-27.0); Calcium 9.9 mg/dL (8.7-10.3); Chloride 102 mmol/L (96-109); Globulin 2.5 g/dL (1.6-3.3); Glucose 150 mg/dL (70-110); Iron 111 UG/DL (65-175); Potassium 4.3 mmol/L (3.5-5.5); Sodium 142 mmol/L (135-145); Total Bilirubin 0.6 mg/dL (0.3-1.2); Total Iron Binding Capacity 288 UG/DL (228-460); Total Protein 6.6 g/dL (6.2-8.2); Uric Acid 7.9 mg/dL (3.7-8.7)
== END | disposition home or self-care (01) ==
LOC: LABWHC1 13:48
PROVIDERS: ATTEND Internal Medicine Nephrology
DX: N18.2 Chronic kidney disease, stage 2 (mild) (principal)
CPT/HCPCS: 36415; 80053; 81003; 82043; 82306; 82570; 82728; 83540; 83550; 83735; 83970; 84100; 84550; 85027

== ENCOUNTER → 2023-09-14 | Outpatient (CLI) | payer MEDICARE ==
--- NOTE | 2023-09-14 08:22 | CT ---
EXAMINATION TYPE: CT abdomen pelvis wo con CT DLP: 1100 mGycm, Automated exposure control for dose reduction was used. DATE OF EXAM: 09/14/2023 8:07 AM COMPARISON: 05/01/2022 CLINICAL INDICATION:Male, 72 years old with history of K57.32 DVTRCLI OF LG INT W/O PERFORATION OR AB SCES; Diverticulitis of large intestine without perforation or abscess. Hx tumor/mass removal. Oral c ontrat only TECHNIQUE: Axial CT abdomen pelvis wo con;Sagittal and coronal reformats were created on a separate workstation. Contrast used: mL of , (none if empty) Oral contrast used: with Oral Contrast (none if empty) FINDINGS: LOWER CHEST: Unremarkable ABDOMEN LIVER: Unremarkable GALLBLADDER AND BILE DUCTS: Layering increased densities within the lumen consistent with gallstones are present. PANCREAS: Unremarkable. SPLEEN: Unremarkable. ADRENAL GLANDS: Unremarkable. KIDNEYS AND URETERS: There is an atrophic left kidney. No evidence of hydronephrosis or renal calculu s. The ureters are unremarkable. PELVIS BLADDER: Unremarkable REPRODUCTIVE: Unremarkable. ABDOMEN & PELVIS STOMACH AND BOWEL: No evidence of bowel obstruction. Colonic diverticulosis. Previous circumferential wall thickening of the sigmoid colon is improved on today's exam from 05/01/2022. PERITONEUM/RETROPERITONEUM: No evidence of pneumoperitoneum or free fluid. Suspected sacral prior inf arcted fat in the left lower quadrant with peripherally calcified fat lobule noted. VASCULATURE: Mild atherosclerotic calcifications are present throughout the abdominal aorta and its b ranches. No evidence of aortic aneurysm. MUSCULOSKELETAL: No acute osseous abnormalities. Moderate disc degeneration changes are present throu ghout the thoracolumbar spine. Right hip arthroplasty with hardware intact. LYMPH NODES: No gross evidence for lymphadenopathy. SOFT TISSUE/ABDOMINAL WALL: No subcutaneous fluid collections visualized. IMPRESSION: 1. No evidence for diverticulitis. Scattered colonic diverticula are present. No organizing fluid co llections. 2. Cholelithiasis. 3. Bilateral fat-containing inguinal hernias. 4. Atrophic left kidney.
== END | disposition home or self-care (01) ==
LOC: RADCTMAIN 07:42
PROVIDERS: ATTEND Surgery Plastic and Reconstructive Surgery
DX: K57.30 Diverticulosis of large intestine without perforation or abscess without bleeding (principal); K80.20 Calculus of gallbladder without cholecystitis without obstruction; K40.20 Bilateral inguinal hernia, without obstruction or gangrene, not specified as recurrent; N26.1 Atrophy of kidney (terminal)
CPT/HCPCS: 74176

== ENCOUNTER 2023-09-23 07:13 | Day surgery (SDC) | payer MEDICARE ==
[2023-09-17 15:06] VITALS: BMI 38.5
[~2023-09-23 07:13] MED LIST changes: +LIDOCAINE 1% (10MG/ML) FOR IV START INTRADERMA PRN; -ceFAZolin 3 GM in SODIUM CHLORIDE 0.9% 100 ML IVPB PRN
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
[2023-09-23] MEDS: LIDOCAINE 1% (10MG/ML) FOR IV START INTRADERMA ONE (07:58)
[2023-09-23] MEDS: LACTATED RINGERS 1,000 ML IV SCH (07:58)
[2023-09-23 08:02] LABS: Glucose,Whole Blood 137 mg/dL (70-110)
[2023-09-23] MEDS ORDERED: PROPOFOL 10 MG/ML 20 ML VIAL IV ONE (08:14)
[2023-09-23 08:47] VITALS: TEMP 97.6
--- NOTE | 2023-09-23 08:47 | P.PCN ---
Date of Procedure: 09/23/23 Description of Procedure: PREOPERATIVE DIAGNOSIS: Colonoscopy screening. Personal history of colon polyps POSTOPERATIVE DIAGNOSIS: Colonoscopy screening. Severe constipation with solid stool Sigmoid diverticulosis OPERATION: Colonoscopy to the sigmoid colon, incomplete colonoscopy due to poor prep. SURGEON: Marti Heck MD. ANESTHESIA: MAC. INDICATIONS: The patient is a 72-year-old male who presents for colonoscopy screening. Her last colonoscopy was more than 5 years ago. Benefits and risks were described and informed consent was obtained. DESCRIPTION OF PROCEDURE: The patient had undergone GoLytely prep. The patient had been brought into the operating room and laid in the left lateral decubitus position. After adequate intravenous sedation, the rectum was examined with 2% lidocaine jelly. No external hemorrhoids were encountered. The rectal tone was normal limits with immediate disimpaction of solid stool. An Olympus colonoscope was advanced along the rectum to sigmoid colon with moderate sigmoid diverticulosis and moderate multiple stool, solid. The procedure was discontinued due to moderate sigmoid and colonic stool. The colon was desufflated. The patient had tolerated the procedure well. FINDINGS: [place] preparation quality scale 5 (1-5) Severe sigmoid diverticulosis Nondiagnostic endoscopy due to poor prep, solid stool RECOMMENDATIONS: Start of lactulose laxative with 2 to 3-day prep and repeat colonoscopy in 3 months, December 2023 Plan - Discharge Summary Discharge Rx Participant: No New Discharge Prescriptions: New Lactulose [Cephulac] 30 ml PO DAILY #500 ml Continue Tamsulosin [Flomax] 0.4 mg PO BID Gabapentin 600 mg PO TID Hydrocodone/Acetaminophen [Hydrocodone/Acetaminophen 10-300 mg] 1 tab PO TID PRN PRN Reason: Pain Insulin Degludec [Tresiba Flextouch U-100 Pen] 20 units IN HS allopurinoL 300 mg PO DAILY Furosemide [Lasix] 40 mg PO DAILY carvediloL [Coreg] 25 mg PO BID Losartan [Cozaar] 25 mg PO DAILY Glimepiride 4 mg PO DAILY Atorvastatin [Lipitor] 40 mg PO DAILY Discharge Medication List Tamsulosin [Flomax] 0.4 mg PO BID 08/11/17 [History] Gabapentin 600 mg PO TID 06/23/18 [History] Hydrocodone/Acetaminophen [Hydrocodone/Acetaminophen 10-300 mg] 1 tab PO TID PRN 06/23/18 [History] Furosemide [Lasix] 40 mg PO DAILY 07/09/22 [History] Atorvastatin [Lipitor] 40 mg PO DAILY 09/17/23 [History] Glimepiride 4 mg PO DAILY 09/17/23 [History] Insulin Degludec [Tresiba Flextouch U-100 Pen] 20 units IN HS 09/17/23 [History] Losartan [Cozaar] 25 mg PO DAILY 09/17/23 [History] allopurinoL 300 mg PO DAILY 09/17/23 [History] carvediloL [Coreg] 25 mg PO BID 09/17/23 [History] Lactulose [Cephulac] 30 ml PO DAILY #500 ml 09/23/23 [Rx] Follow up Appointment(s)/Referral(s): Marti Heck MD [STAFF PHYSICIAN] - 10/20/23 11:00 am Patient Instructions/Handouts: Diverticulosis Diet (GEN), Diverticulosis (GEN) Activity/Diet/Wound Care/Special Instructions: Immediate repeat of colonoscopy following appropriate bowel prep. Start lactulose Discharge Disposition: HOME SELF-CARE
[2023-09-23 09:05] LABS: Glucose,Whole Blood 124 mg/dL (70-110)
[2023-09-23 09:42] VITALS: BP 145/80; PULSE 83; RESP 15
== END 2023-09-23 09:11 | disposition home or self-care (01) ==
LOC: ORWHC2ENDO 07:13
PROVIDERS: ATTEND Surgery Plastic and Reconstructive Surgery
DX: Z12.11 Encounter for screening for malignant neoplasm of colon (principal); K57.30 Diverticulosis of large intestine without perforation or abscess without bleeding; J44.9 Chronic obstructive pulmonary disease, unspecified; M19.90 Unspecified osteoarthritis, unspecified site; N40.0 Benign prostatic hyperplasia without lower urinary tract symptoms; I10 Essential (primary) hypertension; E78.5 Hyperlipidemia, unspecified; E11.9 Type 2 diabetes mellitus without complications; G47.33 Obstructive sleep apnea (adult) (pediatric); Z79.4 Long term (current) use of insulin; Z79.84 Long term (current) use of oral hypoglycemic drugs; Z79.899 Other long term (current) drug therapy; Z86.73 Personal history of transient ischemic attack (TIA), and cerebral infarction without residual deficits; Z87.19 Personal history of other diseases of the digestive system; Z87.891 Personal history of nicotine dependence; Z88.8 Allergy status to other drugs, medicaments and biological substances; Z91.040 Latex allergy status; Z91.041 Radiographic dye allergy status; Z98.890 Other specified postprocedural states
CPT/HCPCS: 45330; J2704

== ENCOUNTER 2023-11-11 06:55 | Day surgery (SDC) | payer MEDICARE ==
[2023-11-09 14:29] VITALS: BMI 37.0
[2023-11-11] MEDS: IV FLUID CONTINUATION 1,000 ML IV ONE ×2 (07:18→08:30)
[2023-11-11 07:21] VITALS: TEMP 97.1
[2023-11-11] MEDS: LACTATED RINGERS 1,000 ML IV SCH (07:31)
[2023-11-11 07:34] LABS: Glucose,Whole Blood 124 mg/dL (70-110)
[2023-11-11] MEDS ORDERED: LIDOCAINE 1% INJ 10MG/ML (20 ML MDV) ONE (08:00)
[2023-11-11] MEDS ORDERED: PROPOFOL 10 MG/ML 20 ML VIAL IV ONE (08:00)
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
--- NOTE | 2023-11-11 08:40 | P.PCN ---
Date of Procedure: 11/11/23 Description of Procedure: PREOPERATIVE DIAGNOSIS: Personal history of colon polyps Colonoscopy screening POSTOPERATIVE DIAGNOSIS: Tubular adenoma ascending colon with partial resection Tubular adenoma transverse colon Sigmoid diverticulosis OPERATION: Colonoscopy to the ileocecal valve and appendiceal orifice, cecum Colonoscopy with hot snare polypectomy SURGEON: Marti Heck MD. ANESTHESIA: MAC. INDICATIONS: The patient is an 73-year-old male who presents family history of malignant colo n polyps and personal history of colon polyps. Last colonoscopy 5 years. Benefits and risks were described and informed consent was obtained. DESCRIPTION OF PROCEDURE: The patient had undergone Sutab prep. The patient had been brought into the operating room and laid in the left lateral decubitus position. After adequate intravenous sedation, the rectum was examined with 2% lidocaine jelly. The prostate was unremarkable. External hemorrhoids were encountered. The rectal tone was within normal limits. No lesions were palpated in the rectal vault. An Olympus colonoscope was advanced until the cecum, ileocecal valve and appendiceal orifice were clearly viewed. The prep was fair. Sigmoid diverticulosis was encountered. Colonic polyps were found and removed. No evidence of focal colitis was found. Retroflexion of the scope demonstrated grade 3 internal hemorrhoids without active bleeding or inflammation. The colon was desufflated. The patient had tolerated the procedure well. Withdrawal time was over 6 minutes. FINDINGS: [place]ch[place] preparation quality scale 3 (1-5) Internal hemorrhoids, grade 3 External hemorrhoids, grade 3. No arteriovenous malformations. Sigmoid diverticulosis Removal of 4 polyps: - Snare polypectomy ascending colon x 2, 5 to 12 mm tubulovillous adenoma with partial resection - Snare polypectomy transverse colon x 2, 10 to 15 mm flat villous adenoma with partial resection No focal colitis. RECOMMENDATIONS: Given severity of tubular adenomas, recommend repeat colonoscopy 1 year, 2024. Plan - Discharge Summary Discharge Rx Participant: No New Discharge Prescriptions: Continue Tamsulosin [Flomax] 0.4 mg PO BID Gabapentin 600 mg PO TID Hydrocodone/Acetaminophen [Hydrocodone/Acetaminophen 10-300 mg] 1 tab PO TID PRN PRN Reason: Pain Insulin Degludec [Tresiba Flextouch U-100 Pen] 20 units IN HS allopurinoL 300 mg PO HS Furosemide [Lasix] 40 mg PO DAILY carvediloL [Coreg] 25 mg PO BID Losartan [Cozaar] 25 mg PO DAILY Glimepiride 4 mg PO DAILY Atorvastatin [Lipitor] 40 mg PO DAILY Lactulose [Cephulac] 30 ml PO DAILY #500 ml Discharge Medication List Tamsulosin [Flomax] 0.4 mg PO BID 08/11/17 [History] Gabapentin 600 mg PO TID 06/23/18 [History] Hydrocodone/Acetaminophen [Hydrocodone/Acetaminophen 10-300 mg] 1 tab PO TID PRN 06/23/18 [History] Furosemide [Lasix] 40 mg PO DAILY 07/09/22 [History] Atorvastatin [Lipitor] 40 mg PO DAILY 09/17/23 [History] Glimepiride 4 mg PO DAILY 09/17/23 [History] Insulin Degludec [Tresiba Flextouch U-100 Pen] 20 units IN HS 09/17/23 [History] Losartan [Cozaar] 25 mg PO DAILY 09/17/23 [History] allopurinoL 300 mg PO HS 09/17/23 [History] carvediloL [Coreg] 25 mg PO BID 09/17/23 [History] Lactulose [Cephulac] 30 ml PO DAILY #500 ml 09/23/23 [Rx] Patient Instructions/Handouts: *Surgery [facility] - (Anesthesia) Discharge Instructions Outpatient Surgery, Diverticulosis (DC), Colorectal Polyps (GEN) Activity/Diet/Wound Care/Special Instructions: Misbah colonoscopy 1 year, 2024 Discharge Disposition: HOME SELF-CARE
[2023-11-11 08:59] VITALS: BP 138/78; PULSE 67; RESP 18
== END 2023-11-11 09:13 | disposition home or self-care (01) ==
LOC: ORWHC2ENDO 06:55
PROVIDERS: ATTEND Surgery Plastic and Reconstructive Surgery
DX: Z12.11 Encounter for screening for malignant neoplasm of colon (principal); D12.2 Benign neoplasm of ascending colon; D12.3 Benign neoplasm of transverse colon; E11.9 Type 2 diabetes mellitus without complications; E78.5 Hyperlipidemia, unspecified; G47.33 Obstructive sleep apnea (adult) (pediatric); I10 Essential (primary) hypertension; J44.9 Chronic obstructive pulmonary disease, unspecified; K57.30 Diverticulosis of large intestine without perforation or abscess without bleeding; M19.90 Unspecified osteoarthritis, unspecified site; N40.0 Benign prostatic hyperplasia without lower urinary tract symptoms; Z79.4 Long term (current) use of insulin; Z79.84 Long term (current) use of oral hypoglycemic drugs; Z79.899 Other long term (current) drug therapy; Z80.0 Family history of malignant neoplasm of digestive organs; Z86.73 Personal history of transient ischemic attack (TIA), and cerebral infarction without residual deficits; Z87.891 Personal history of nicotine dependence; Z88.8 Allergy status to other drugs, medicaments and biological substances; Z91.040 Latex allergy status; Z91.041 Radiographic dye allergy status
CPT/HCPCS: 88305; 45385; J2001; J2704

== ENCOUNTER → 2024-06-06 | Outpatient (CLI) | payer MEDICARE ==
--- NOTE | 2024-06-06 07:50 | CT ---
EXAMINATION TYPE: CT abdomen pelvis wo con CT DLP: 1130.8 mGycm, Automated exposure control for dose reduction was used. DATE OF EXAM: 06/06/2024 7:37 AM COMPARISON: CT abdomen pelvis 09/14/2023, 10/28/2021, CT abdomen 05/01/2022 CLINICAL INDICATION:Male, 73 years old with history of R10.9 unspecified abdominal pain; LUQ abdomina l pain. TECHNIQUE: Standard CT of the abdomen and pelvis without IV or oral contrast. Lack of IV or oral co ntrast limits evaluation of solid and hollow organ viscera. Coronal and sagittal reformats were perfo rmed. FINDINGS: LOWER CHEST: Diffuse visualized intralobular septal thickening. Patchy consolidative opacity within t he left lower lobe. ABDOMEN LIVER: Unremarkable noncontrast appearance GALLBLADDER AND BILE DUCTS: Cholelithiasis. No biliary ductal dilatation. PANCREAS: Unremarkable noncontrast appearance SPLEEN: Unremarkable noncontrast appearance ADRENAL GLANDS: Unremarkable noncontrast appearance of the right adrenal gland. 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 KIDNEYS AND URETERS: No evidence of hydronephrosis. Atrophy left kidney with a tiny cortical likely c ysts. Nonobstructive left renal superior pole 4 mm calculus. There are approximately 3 nonobstructive right renal calculi with largest measuring up to 4 mm. No visualized ureteral calculus. There is poo r visualization of the distal right ureter due to streak artifact from hip prosthesis. Right renal up per pole 2.0 cm cyst. PELVIS BLADDER: No gross abnormality however there is streak artifact limiting evaluation from the right hip prosthesis. REPRODUCTIVE: Coarse calcifications of the prostate gland are identified. Prominent prostate gland. ABDOMEN & PELVIS STOMACH AND BOWEL: Stomach and duodenum are unremarkable. Distal colonic diverticulosis without evide nce for acute diverticulitis. No focal bowel wall thickening or surrounding inflammatory changes. The appendix is within normal limits. No evidence of bowel obstruction. PERITONEUM: No evidence of pneumoperitoneum or free fluid. Stable peripherally calcified fat containi ng lesion within the mid anterior left peritoneum measuring up to 2.6 cm. Consider benign appear to r epresent an infarct portion of fat. VASCULATURE: Moderate to severe atherosclerotic calcifications are present throughout the abdominal a caridad and its branches. No evidence of aortic aneurysm. MUSCULOSKELETAL: No acute osseous abnormalities . Postsurgical changes from right total hip arthropla sty. Moderate multilevel degenerative disc disease. LYMPH NODES: No gross evidence for lymphadenopathy. SOFT TISSUE/ABDOMINAL WALL: Bilateral fat filled inguinal hernias. IMPRESSION: 1. No acute intra-abdominal pelvic process. 2. Cholelithiasis. 3. Nonobstructive bilateral renal calculi with atrophy of the left kidney. 4. Colonic diverticulosis without evidence for acute diverticulitis. 5. Bibasilar interlobular septal thickening with left lower lobe patchy consolidation. Correlate for volume overload and developing pneumonia/atelectasis. [facility], , 06/06/2024 7:48 AM
== END | disposition home or self-care (01) ==
LOC: RADCTMAIN 07:16
PROVIDERS: ATTEND Family Medicine
DX: K80.20 Calculus of gallbladder without cholecystitis without obstruction (principal); N20.0 Calculus of kidney; K57.30 Diverticulosis of large intestine without perforation or abscess without bleeding; R91.8 Other nonspecific abnormal finding of lung field
CPT/HCPCS: 74176